=== PATIENT | male | born 1965 | race Caucasian/White ===

== ENCOUNTER → 2018-02-02 08:05 | Outpatient (CLI) | payer MEDICAID, SELFPAY ==
[2018-02-02 09:37] LABS: Microalbumin:Creatinine Ratio 129.8 mg/g CRE (<30 mg/g CRE)
[2018-02-02 09:42] LABS: ALB/GLOB Ratio 1.1 RATIO (0.9-2.4); AST(SGOT) 13 U/L (15-37); Alanine Aminotransfer ALT/SGPT 35 U/L (16-61); Albumin, Serum 3.5 g/dL (3.2-5.0); Alkaline Phosphatase 77 U/L (45-117); Anion Gap 8 (5-15); BUN 18 mg/dL (7-18); Calcium,Total 8.6 mg/dL (8.5-10.1); Chloride 101 mmol/L (98-107); Cholesterol 149 mg/dL (200); Creatinine, Serum 0.75 mg/dL (0.70-1.30); EST Glomerular Filtration Rate 116 mL/min (>60); Est Glom Filt Rate - Afr Amer 141 mL/min (>60); Globulin 3.2 g/dL (2.2-4.2); Glucose 255 mg/dL (74-106); High Density Lipoprotein 50 mg/dL; Potassium 4.1 mmol/L (3.5-5.1); Protein, Total 6.7 g/dL (6.4-8.2); Sodium Level 136 mmol/L (136-145); Triglycerides 77 mg/dL; Very Low Density Lipoprotein 15 mg/dL (5-40)
[2018-02-02 09:51] LABS: Hemoglobin A1c 11.4 % (4.2-6.3)
== END ==
PROVIDERS: Family Provider Family Medicine; PCP Family Medicine; Visit Provider Family Medicine
DX: E11.65 Type 2 diabetes mellitus with hyperglycemia (principal)
CPT/HCPCS: 36415; 80053; 80061; 82043; 82570; 83036

== ENCOUNTER → 2019-03-28 09:23 | Outpatient (CLI) | payer MEDICAID, SELFPAY ==
[2019-03-28 12:30] LABS: Microalbumin,Random Urine 33.2 mg/L (NO RANGE EST.); Microalbumin:Creatinine Ratio 59.7 mg/g CRE (<30 mg/g CRE)
[2019-03-28 12:40] LABS: ALB/GLOB Ratio 0.9 RATIO (0.9-2.4); AST(SGOT) 14 U/L (15-37); Alanine Aminotransfer ALT/SGPT 29 U/L (16-61); Albumin, Serum 3.5 g/dL (3.2-5.0); Alkaline Phosphatase 78 U/L (45-117); Anion Gap 10 (5-15); BUN 25 mg/dL (7-18); BUN/Creat Ratio 30.2 RATIO (10-20); Chloride 100 mmol/L (98-107); Cholesterol 177 mg/dL (200); Creatinine, Serum 0.83 mg/dL (0.70-1.30); EST Glomerular Filtration Rate 103 mL/min (>60); Est Glom Filt Rate - Afr Amer 125 mL/min (>60); Globulin 3.7 g/dL (2.2-4.2); Glucose 330 mg/dL (74-106); High Density Lipoprotein 53 mg/dL; Potassium 4.4 mmol/L (3.5-5.1); Protein, Total 7.2 g/dL (6.4-8.2); Sodium Level 133 mmol/L (136-145); Triglycerides 146 mg/dL; Very Low Density Lipoprotein 29 mg/dL (5-40)
== END ==
PROVIDERS: Family Provider Family Medicine; PCP Family Medicine; Visit Provider Family Medicine
DX: E11.65 Type 2 diabetes mellitus with hyperglycemia (principal)
CPT/HCPCS: 36415; 80053; 80061; 82043; 82570

== ENCOUNTER → 2021-03-11 | Outpatient (CLI) | payer SELFPAY | END | disposition home or self-care (01) | PROVIDERS: PCP Family Medicine; Referring Provider Family Medicine; Visit Provider Family Medicine | DX: L01.00 Impetigo, unspecified (principal) | CPT/HCPCS: 87070; 87075; 87077; 87186; 87205 ==

== ENCOUNTER 2021-08-14 21:03 | Inpatient (IN) | payer OTHER, SELFPAY ==
[2021-08-14] VITALS (8 sets, daily range): BP systolic 115–147; BP diastolic 86–126; PULSE 83–172; RESP 16–26; TEMP 35.5; O2SAT 94–98; BMI 43.6
--- NOTE | 2021-08-14 21:43 | EKG12_ITS ---
Test Reason : SOB Blood Pressure : / mmHG Vent. Rate : 146 BPM Atrial Rate : 081 BPM P-R Int : 000 ms QRS Dur : 084 ms QT Int : 308 ms P-R-T Axes : 000 063 195 degrees QTc Int : 479 ms Atrial fibrillation Nonspecific T wave abnormality Abnormal ECG Confirmed by RAJI DOWD, SONIA ([id number]), publications editor JAMES GARCIA ([id number]) on 08/17/2021 11:29:44 AM Referred By: SHUKRI Confirmed By:SONIA ALEGRIA MD
--- NOTE | 2021-08-14 21:57 | EX.ED.DYSGE1 ---
HPI History of Present Illness Chief Complaint: Shortness of Breath Informant: patient Onset/Context/Timing Onset: Month(s) Current Severity: Moderate Maximum Severity: Moderate Narrative Narrative: She presents with 3-month history of worsening shortness of breath, worse over the past week or 2. He had seen his PCP who gave him an inhaler 3 months ago. He states that is no longer helping. He does report some mild redness and swelling to his lower extremities left greater than right over the past week. He has some occasional chest tightness. He reports significantly worsened short of breath with exertion. He has had increased dyspnea when lying flat as well. [facility] Medical History COPD (chronic obstructive pulmonary disease) Diabetes MARIELLA (obstructive sleep apnea) Home Medications albuterol sulfate 2 puff INHALATION Q4H PRN PRN 08/14/21 [History Last Taken Unknown] bupropion HCl 150 mg PO DAILY 08/14/21 [History Last Taken Unknown] glimepiride 4 mg PO BID 08/14/21 [History Last Taken Unknown] insulin NPH isoph U-100 human [Novolin N NPH U-100 Insulin] 20 unit SUBCUT BID 08/14/21 [History Last Taken Unknown] lisinopril 2.5 mg PO DAILY 08/14/21 [History Last Taken Unknown] metformin 1,000 mg PO BID 08/14/21 [History Last Taken Unknown] pioglitazone 30 mg PO DAILY 08/14/21 [History Last Taken Unknown] Allergy/AdvReac Type Severity Reaction Status Date / Time Penicillins Allergy PT UNSURE Verified 08/14/21 21:07 OF REACTION Surgical History H/O hernia repair Social History Smoking Status: Former smoker ROS ROS ED Constitutional Constitutional ED: Denies chills or fever(s) Eyes Eyes: Denies change in vision ENT ENT ED: Denies sore throat Cardiovascular Cardiovascular: Reports chest pain; Denies palpitations Respiratory/Chest Respiratory/Chest: Reports dyspnea; Denies cough Gastrointestinal Gastrointestinal: Denies abdominal pain, diarrhea, nausea or vomiting Genitourinary Genitourinary ED: Denies dysuria Musculoskeletal Musculoskeletal: Reports other Details: Lower extremity edema ; Denies back pain Integumentary Denies rash Neurologic Neurologic: Denies headache(s) or weakness Allergic/Immunologic Allergic/Immunologic ED: Denies urticaria EXAM Physical Exam Const Vital Signs: 08/14/21 21:03 08/14/21 21:14 08/14/21 21:21 Temperature 95.9 F L Temperature Source Temporal Pulse Rate 83 172 H Respiratory Rate 16 Respiratory Effort Normal Non-Labored Respiratory Depth Normal Respiratory Pattern Normal Blood Pressure 144/110 H Blood Pressure Mean 121 Pulse Ox 97 Oxygen Delivery Method Room Air Room Air 08/14/21 21:23 08/14/21 21:27 08/14/21 22:33 Temperature Temperature Source Pulse Rate 141 H 126 H Respiratory Rate 19 H 26 H Respiratory Effort Respiratory Depth Respiratory Pattern Normal Blood Pressure 145/126 H 123/94 H Blood Pressure Mean 132 103 Pulse Ox 96 97 Oxygen Delivery Method Room Air Room Air 08/14/21 23:00 Temperature Temperature Source Pulse Rate 128 H Respiratory Rate 17 Respiratory Effort Respiratory Depth Respiratory Pattern Blood Pressure 115/92 H Blood Pressure Mean 99 Pulse Ox 97 Oxygen Delivery Method Room Air Positive obese Nutritional Appearance: obese HEENT Reports moist mucous membranes Eyes PERRL and EOMs intact bilaterally Neck supple Chest Wall inspection of chest normal and palpation of chest normal Resp Auscultation: diminished lung sounds Cardio Rate: tachycardic Rhythm: abnormal rhythm irregularly irregular GI normal to inspection, nondistended, normoactive bowel sounds and non-tender Palpation: soft Extremity Extremity Narrative: 3+ bilateral lower extremity edema. Neuro oriented x3 Sensorium / Orientation: alert Psych mental status grossly normal Skin no rashes or lesions noted MDM MDM MDM Narrative Medical decision making narrative: Patient placed on school lunch monitor. He appears to be in new onset atrial fibrillation with A. fib RVR. Patient ordered Cardizem for rate control. Lab work, formal EKG, chest x-ray obtained. Lab Data Attestation: I reviewed the patient's lab results. Labs: Laboratory Results - last 24 hr 08/14/21 08/14/21 08/14/21 21:20 21:20 21:20 WBC 6.8 RBC 5.30 Hgb 14.3 Hct 45.5 MCV 85.8 MCH 27.0 MCHC 31.4 L RDW Std Deviation 44.8 H RDW Coeff of Jett 14.3 Plt Count 243 MPV 11.5 Immature Gran % (Auto) 2.100 H Neut % (Auto) 59.5 Lymph % (Auto) 27.5 [place] % (Auto) 8.7 Eos % (Auto) 1.3 Baso % (Auto) 0.9 Absolute Neuts (auto) 4.0 Absolute Lymphs (auto) 1.86 Nucleated RBC % 0 D-Dimer Quant (PE/DVT) Sodium 134 L Potassium 4.6 Chloride 105 Carbon Dioxide 24.0 Anion Gap 5 BUN 31 H Creatinine 1.05 Estim Creat Clear Calc 92.42 Est GFR (MDRD) Af Amer 94 Est GFR (MDRD) Non-Af 78 BUN/Creatinine Ratio 29.5 H Glucose 214 H Calcium 8.7 Troponin I High Sens 37 B-Natriuretic Peptide 653.4 H 08/14/21 21:20 WBC RBC Hgb Hct MCV MCH MCHC RDW Std Deviation RDW Coeff of Jett Plt Count MPV Immature Gran % (Auto) Neut % (Auto) Lymph % (Auto) [place] % (Auto) Eos % (Auto) Baso % (Auto) Absolute Neuts (auto) Absolute Lymphs (auto) Nucleated RBC % D-Dimer Quant (PE/DVT) 0.45 Sodium Potassium Chloride Carbon Dioxide Anion Gap BUN Creatinine Estim Creat Clear Calc Est GFR (MDRD) Af Amer Est GFR (MDRD) Non-Af BUN/Creatinine Ratio Glucose Calcium Troponin I High Sens B-Natriuretic Peptide Radiography Chest X-Ray - ED: 1 View, Read by ED Physician and Chronic Changes Diagnostic Testing: Clinical Impression(s) from Imaging Studies Chest X-Ray 08/14/21 22:12 EKG Initial EKG: Attestation: I personally reviewed and interpreted this EKG as follows: Interpretation: Atrial Fibrillation (A. fib RVR at 146. T wave flattening throughout.) Treatment and Re-Evaluation Narrative: After 10 mg IV Cardizem heart rate improved to 120s. An additional 10 mg of IV Cardizem is given. Dose of Lovenox given. Lab work reviewed and largely unremarkable. Troponin is normal at 37 and D-dimer is normal. BNP is elevated at 650. Patient is given 40 mg of IV Lasix. Patient ambulates to the restroom and back and becomes dyspneic. Heart rate is now in the 130s. Patient will be given 20 mg of IV Cardizem and started on a Cardizem drip for rate control. I will speak with hospitalist regarding admission. Discharge Plan Dx/Rx/DC Orders Clinical Impression: New onset a-fib, Atrial fibrillation with rapid ventricular response, CHF (congestive heart failure) Disposition Disposition: Acute Care Hospital [facility]
[2021-08-14 22:00] LABS: Absolute Lymphocyte Count 1.86 X10^3/uL (0.83-4.51); Basophil# 0.06 X10^3/uL; Basophil% 0.9 % (0-1); Eosinophil# 0.09 X10^3/uL; Eosinophils% 1.3 % (0-5); Hematocrit 45.5 % (40-54); Hemoglobin 14.3 g/dL (13.0-16.5); Lymphocyte # 1.86 X10^3/ul (0.83-4.51); Lymphocyte % 27.5 % (19-41); Mean Corp Hgb Conc 31.4 g/dL (32-36); Mean Corpuscular Volume 85.8 fL (80-94); Mean Platelet Vol. 11.5 fl (6.2-12.0); Monocyte# 0.59 X10^3/uL; Monocyte% 8.7 % (0-10); NRBC Flagged by Analyzer 0 % (0-5); Neutrophil # 4.03 X10^3/uL (2.7-7.7); Neutrophil % 59.5 % (47-70); Platelet Count 243 K/mm3 (150-450); RBC Distribution Width CV 14.3 % (11.6-14.6); RBC Distribution Width SD 44.8 fl (35.1-43.9); White Blood Count 6.8 K/mm3 (4.4-11.0)
[2021-08-14] MEDS: dilTIAZem 25 MG/5 ML Vial 10 MG IV BOLUS ×2 (22:01→22:57)
[2021-08-14 22:10] LABS: D-Dimer Quantitative (DVT/PE) 0.45 FEU/ug/m (0.27-0.49)
--- NOTE | 2021-08-14 22:12 | RAD_ITS ---
EXAM: AP chest. HISTORY: sob TECHNIQUE: XR Chest 1 View. Upright. Portable. COMPARISON: None. LIMITATIONS: None. HEART: Mild-moderate cardiomegaly. TUBES/LINES: None. LUNGS: Prominent perihilar and almost diffuse long linear markings, most pronounced in the central lungs and mid to lower lung orantes.. PLEURA: Normal. MEDIASTINUM: No mediastinal widening but prominent perihilar vessels. No obvious enlarged or tortuous contour of the aorta margin. BONES/SOFT TISSUES: Normal. OTHER: Normal. CONCLUSION: Cardiomegaly, pulmonary vascular prominence and increased lung interstitial markings, suspicious for pulmonary interstitial edema-early CHF. Cannot exclude some degree of chronic interstitial lung disease. No effusions or focal confluent airspace disease. Electronically Signed: Shalonda Kern MD at 22:41 EDT , RAD/Chest 1 View (Portable)
[2021-08-14 22:15] LABS: Anion Gap 5 (5-15); BUN 31 mg/dL (7-18); BUN/Creat Ratio 29.5 RATIO (10-20); Calcium,Total 8.7 mg/dL (8.5-10.1); Chloride 105 mmol/L (98-107); Creatinine, Serum 1.05 mg/dL (0.70-1.30); EST Glomerular Filtration Rate 78 mL/min (>60); Est Glom Filt Rate - Afr Amer 94 mL/min (>60); Estimated Creatinine Clearance 92.42 ml/min; Glucose 214 mg/dL (74-106); Potassium 4.6 mmol/L (3.5-5.1); Sodium Level 134 mmol/L (136-145); Troponin-I HS 37 pg/mL (3.0-78.0)
[2021-08-14 22:19] LABS: BNP,B-Type NATRIURETIC PEPTIDE 653.4 pg/mL (0-100)
[2021-08-14] MEDS: Enoxaparin 150 MG/ML Syringe SC (22:32)
[2021-08-14] MEDS: Furosemide 40 MG/4 ML Vial IV (22:58)
[2021-08-14] MEDS: dilTIAZem 25 MG/5 ML Vial 20 MG IV BOLUS (23:50)
--- NOTE | 2021-08-14 23:52 | HP.PCM.HOS_ITS ---
[facility] - General General Date of Admission: 08/14/21 HPI Narrative ALFIE BACON, is a 55 M with a significant history of tobacco abuse (reportedly wean himself off and quit smoking 2 days before presentation) ; obstructive sleep apnea on CPAP; COPD; diabetes mellitus and morbid obesity who presents to the emergency department with shortness of breath that started about 3 months ago. His shortness of breath is at rest and it increases markedly with mild exertion. His shortness of breath got progressively worse in the past 1 to 2 weeks. Prescribed inhaler did not help his breathing. He report that about 4 years ago he was diagnosed with COPD and at that time inhaler use helped his breathing. This time around inhaler is not helping his breathing. Associated with symptom is bilateral leg and bilateral feet swelling that he thinks is worse in his left extremity than his right extremity. He reports fatigue. He stated that he has not noticed any significant change in his weight. He denies orthopnea. He has paroxysmal nocturnal dyspnea. He reports wheezes. He denies any palpitation or heart racing. He reports chest tightness. [facility] Medical History COPD (chronic obstructive pulmonary disease) Diabetes MARIELLA (obstructive sleep apnea) Home Medications albuterol sulfate 2 puff INHALATION Q4H PRN PRN 08/14/21 [History Last Taken Unknown] bupropion HCl 150 mg PO DAILY 08/14/21 [History Last Taken Unknown] glimepiride 4 mg PO BID 08/14/21 [History Last Taken Unknown] insulin NPH isoph U-100 human [Novolin N NPH U-100 Insulin] 20 unit SUBCUT BID 08/14/21 [History Last Taken Unknown] lisinopril 2.5 mg PO DAILY 08/14/21 [History Last Taken Unknown] metformin 1,000 mg PO BID 08/14/21 [History Last Taken Unknown] pioglitazone 30 mg PO DAILY 08/14/21 [History Last Taken Unknown] Allergy/AdvReac Type Severity Reaction Status Date / Time Penicillins Allergy PT UNSURE Verified 08/14/21 21:07 OF REACTION Family History Other COPD (chronic obstructive pulmonary disease) Colon cancer Heart disease Lung cancer Testicular cancer Surgical History Bunion H/O hernia repair Social History Smoking Status: Former smoker ROS ROS Narrative Constitutional: Reports fatigue. On some days he has a good appetite and some days he has a poor appetite. Denies fever, chills, fatigue. Patient says he has not had any significant change in weight. Eyes: Denies blurry vision, change in eye color, change in vision, discharge from eye(s), double vision, erythema, eye pain, loss of vision or other HEENT: Denies abnormal hearing, dysphagia, ear pain, epistaxis, headache(s), hearing loss, nasal congestion, nasal discharge, post nasal drip, sinus pressure, sore throat or other Cardiovascular: Reports chest tightness. Reports increased shortness of breath with mild exertion. Denies orthopnea orthopnea. Has paroxysmal nocturnal dyspnea Respiratory/Chest: Reports shortness of breath at rest. Report wheezes. Gastrointestinal: Denies abdominal pain, coffee ground emesis, constipation, diarrhea, dyspepsia, hematemesis, hematochezia, loose stools, melena, nausea, vomiting or other Genitourinary: Denies burning urination, difficulty urinating, dysuria, hem aturia, nocturia, urinary frequency, urinary hesitancy, urinary incontinence, urinary urgency or other Musculoskeletal: Reports about bilateral legs and bilateral feet swelling with left worse than right. Denies arthralgias, back pain, joint pain, joint stiffness, myalgias, neck pain or other Neurologic: Denies abnormal gait, abnormal speech, confusion, disequilibrium, dizziness, focal weakness, numbness, paresthesias, seizure-like activity, seizures, syncope, tingling, tremor(s) or other Psychiatric: Denies anxiety, depression, homicidal ideation, suicidal ideation or other Endocrinology: Denies change in body appearance, cold intolerance, excessive sweating, heat intolerance, polydipsia, polyuria or other Hematologic/Lymphatic: Denies anemia, easy bleeding, easy bruising, lymphaden opathy or other Integumentary: Denies rashes Allergic/Immunologic: Denies rhinitis, hives, eczema, or other Vital Signs Vital Signs Vital Signs: 08/14/21 21:03 08/14/21 21:14 08/14/21 21:21 Temperature 95.9 F L Temperature Source Temporal Pulse Rate 83 172 H Respiratory Rate 16 Respiratory Effort Normal Non-Labored Respiratory Depth Normal Respiratory Pattern Normal Blood Pressure 144/110 H Blood Pressure Mean 121 Pulse Ox 97 Oxygen Delivery Method Room Air Room Air 08/14/21 21:23 08/14/21 21:27 08/14/21 22:33 Temperature Temperature Source Pulse Rate 141 H 126 H Respiratory Rate 19 H 26 H Respiratory Effort Respiratory Depth Respiratory Pattern Normal Blood Pressure 145/126 H 123/94 H Blood Pressure Mean 132 103 Pulse Ox 96 97 Oxygen Delivery Method Room Air Room Air 08/14/21 23:00 08/14/21 23:50 Temperature Temperature Source Pulse Rate 128 H 140 H Respiratory Rate 17 20 H Respiratory Effort Respiratory Depth Respiratory Pattern Blood Pressure 115/92 H 147/86 H Blood Pressure Mean 99 106 Pulse Ox 97 94 Oxygen Delivery Method Room Air Room Air Weight Weight: 154.221 kg Body Mass Index (BMI) 43.6 Physical Exam Narrative Physical exam: General: Well-nourished, well-developed. Head: Normocephalic, atraumatic, no tenderness Eyes: Vision is grossly intact. EOMI ENT, no trauma, moist mucous membranes, no rhinorrhea Neck: Nontender, full range of motion, no spinal tenderness, deformities, step- off CVS: Tachycardia. Irregularly irregular rate and rhythm. S1-S2 present. No murmur, gallop or rub. Respiratory : Mild wheezes throughout and mild rales at right base. chest wall nontender Abdomen: Soft, nontender, nondistended, normal bowel sounds, no masses : Deferred Back: Nontender, no CVA tenderness, no midline spinal tenderness, deformities, step-offs Extremities: Bilateral lower feet and legs pitting edema 3+. Skin: Normal color, scattered scabbed areas and scattered erythema on skin. Neuro: Alert, oriented, cranial nerves II through XII grossly intact. Psychiatry: Normal mood. Normal affect. Not depressed. Not anxious. Results Lab / Micro Data Result Diagrams: 08/14/21 21:20 08/14/21 21:20 Labs: Laboratory Results - last 24 hr 08/14/21 21:20: WBC 6.8, RBC 5.30, Hgb 14.3, Hct 45.5, MCV 85.8, MCH 27.0, MCHC 31.4 L, RDW Std Deviation 44.8 H, RDW Coeff of Jett 14.3, Plt Count 243, MPV 11.5, Immature Gran % (Auto) 2.100 H, Neut % (Auto) 59.5, Lymph % (Auto) 27.5, [place] % (Auto) 8.7, Eos % (Auto) 1.3, Baso % (Auto) 0.9, Absolute Neuts (auto) 4.0, Absolute Lymphs (auto) 1.86, Nucleated RBC % 0 08/14/21 21:20: Sodium 134 L, Potassium 4.6, Chloride 105, Carbon Dioxide 24.0, Anion Gap 5, BUN 31 H, Creatinine 1.05, Estim Creat Clear Calc 92.42, Est GFR (MDRD) Af Amer 94, Est GFR (MDRD) Non-Af 78, BUN/Creatinine Ratio 29.5 H, Glucose 214 H, Calcium 8.7, Troponin I High Sens 37 08/14/21 21:20: B-Natriuretic Peptide 653.4 H 08/14/21 21:20: D-Dimer Quant (PE/DVT) 0.45 Radiology Impression Chest X-Ray 08/14/21 22:12 Assessment & Plan Assessment/Plan (1) Atrial fibrillation with rapid ventricular response: (2) CHF (congestive heart failure): QUALIFIERS: Heart failure chronicity: acute Heart failure type: unspecified Qualified Code(s): I50.9 - Heart failure, unspecified (3) Morbid obesity due to excess calories: PLAN: New onset A. fib with rapid ventricular response Emergency department doctor reported that on presentation patient was in A. fib with rate of 150 at 160. Patient received multiple boluses of Cardizem and was placed on Cardizem drip. Placed on PCU on telemetry Initial troponin was 37. Serial cardiac enzymes Review of hospital records did not show any previous echocardiogram. Echocardiogram ordered. Received therapeutic dose of Lovenox at emergency department. [id number] 2 score of at least 2 (including congestive heart failure diagnosed on presentation; diabetes; ) Lovenox 1 mg per kilogram subcutaneous every 12 hours ordered Started on Cardizem drip at the ED and continued. Potassium level is normal. Check magnesium. Check TSH. New onset exacerbation of heart failure Unspecified whether systolic or diastolic Weight on admission to the floor; and then daily Strict I&O's CXR was visualized and independently interpreted and agree with radiologist interpretation of cardiomegaly, pulmonary vascular prominence and increased lung interstitial markings. EKG visualized and independently interpreted confirms atrial fibrillation with rapid ventricular response. BNP on presentation was 653.4 in the setting of obesity. Received Lasix 40 mg IV at the emergency department and continued. Potassium supplementation ordered. Echo ordered to evaluate LVEF and wall motion. Monitor electrolytes and renal function Daniel wrap to bilateral lower extremities. Elevate bilateral lower extremities. Fluid restriction of 1500 mls daily Cardiac diet with restricted calories. Discontinue home Pioglitazone. Diabetes mellitus Patient with hyperglycemia on presentation Glimepiride and NPH continued. Hold Metformin. Discontinue Pioglitazone Low-dose lisinopril continued. Accu-Chek QA CHS with correction scale insulin ordered. Morbid Obesity- BMI: 43.7 kg/m?. Complicates care. Lifestyle modification recommended. DVT prophylaxis: Not indicated as patient has been started on therapeutic dose of Lovenox for new onset A. fib. Charges/Coding Visit Charges Inpatient E&M: 95535 Init Hosp L3
[2021-08-15] VITALS (43 sets, daily range): BP systolic 72–157; BP diastolic 62–128; PULSE 63–171; RESP 11–30; TEMP 36.4–36.7; O2SAT 92–99; BMI 44.0
--- NOTE | 2021-08-15 00:40 | ED.RN ---
URINAL EMPTIED FOR 800 CC CLEAR YELLOW URINE
--- NOTE | 2021-08-15 01:25 | ECHOCS_ITS ---
Reason For Study: Afib, Aflutter Procedure This was a 2D Doppler, Color Flow transthoracic echocardiogram. The study was technically difficult. Contrast injection was performed. Exam performed portable in patient room. Left Ventricle Moderately dilated left ventricle. The estimated ejection fraction is 15 %. Unable to assess diastolic dysfunction due to arrhythmia. There is severe global hypokinesis of the left ventricle. Right Ventricle Normal RV size. Normal systolic function. Atria The left atrium is mildly enlarged. Normal right atrium. Mitral Valve Normal mitral valve. Tricuspid Valve Normal tricuspid valve. Moderate (2+) tricuspid valve insufficiency. Pulmonary artery systolic pressure is 50 mmHg. Aortic Valve Normal aortic valve. Pulmonic Valve Normal pulmonic valve. Great Vessels Normal aortic root. The pulmonary artery is normal size. Pericardium/Pleural No pericardial effusion. Medication Diluted definity 3ml given slow IV push to enhance endocardial definition. MMode/2D Measurements & Calculations LVIDd: 6.5 cm IVSd: 1.2 cm Ao root diam: 3.6 cm LVIDs: 5.7 cm LVPWd: 1.1 cm RVDd: 4.7 cm FS: 13.0 % LAV(MOD-bp): 82.6 ml LA A4 area: 24.4 cm2 LA dimension(2D): 4.7 cm LAV(MOD-bp) Indexed: 30.4 ml/m2 LAV(MOD-sp2): 75.9 ml LAV(MOD-sp4): 82.3 ml RA A4 area: 19.8 cm2 Doppler Measurements & Calculations MV E max shawanda: 112.6 cm/sec Ao V2 max: 95.1 cm/sec LV V1 max: 77.4 cm/sec Ao max P.8 mmHg LV V1 max P.5 mmHg Ao V2 mean: 70.2 cm/sec Ao mean P.2 mmHg Ao V2 VTI: 14.5 cm PA V2 max: 56.1 cm/sec TR max shawanda: 335.7 cm/sec TR max P.1 mmHg ECHO/Echo Complete W/ Contrast Interpretation Summary Moderately dilated left ventricle. The estimated ejection fraction is 15 %. Unable to assess diastolic dysfunction due to arrhythmia. Pulmonary artery systolic pressure is 50 mmHg. Contrast injection was performed. Ordering Physician: Delonte Lees Referring Physician: Margot Mai Performed By: Lala Lemons, JAIDEN, RVT
[2021-08-15 02:58] LABS: Troponin-I HS 36 pg/mL (3.0-78.0)
[2021-08-15 05:28] LABS: Absolute Lymphocyte Count 1.25 X10^3/uL (0.83-4.51); Absolute Neutrophil Count 4.5 X10^3/uL (2.0-7.7); Basophil# 0.06 X10^3/uL; Basophil% 0.9 % (0-1); Eosinophil# 0.09 X10^3/uL; Eosinophils% 1.4 % (0-5); Hematocrit 41.9 % (40-54); Hemoglobin 13.4 g/dL (13.0-16.5); Lymphocyte # 1.25 X10^3/ul (0.83-4.51); Lymphocyte % 19.2 % (19-41); Mean Corpuscular Hgb 26.9 pg (27.0-32.0); Mean Corpuscular Volume 84.1 fL (80-94); Mean Platelet Vol. 11.1 fl (6.2-12.0); Monocyte# 0.48 X10^3/uL; Monocyte% 7.4 % (0-10); NRBC Flagged by Analyzer 0 % (0-5); Neutrophil # 4.52 X10^3/uL (2.7-7.7); Neutrophil % 69.3 % (47-70); Platelet Count 184 K/mm3 (150-450); RBC Distribution Width CV 14.5 % (11.6-14.6); RBC Distribution Width SD 43.9 fl (35.1-43.9); Red Blood Count 4.98 M/mm3 (4.6-6.2); White Blood Count 6.5 K/mm3 (4.4-11.0)
[2021-08-15 06:05] LABS: Anion Gap 5 (5-15); BUN 27 mg/dL (7-18); Calcium,Total 8.2 mg/dL (8.5-10.1); Chloride 105 mmol/L (98-107); Cholesterol 129 mg/dL (200); Creatinine, Serum 0.87 mg/dL (0.70-1.30); EST Glomerular Filtration Rate 97 mL/min (>60); Est Glom Filt Rate - Afr Amer 117 mL/min (>60); Estimated Creatinine Clearance 111.54 ml/min; Glucose 223 mg/dL (74-106); High Density Lipoprotein 42 mg/dL; Potassium 4.7 mmol/L (3.5-5.1); Sodium Level 134 mmol/L (136-145); Thyroid Stim Hormone (TSH) 3.54 uIU/mL (0.358-3.74); Triglycerides 85 mg/dL; Very Low Density Lipoprotein 17 mg/dL (5-40)
[2021-08-15] MEDS: Insulin Lispro 100 UNIT/ML INSULN.PEN SC ×4 (06:36→21:43)
[2021-08-15 06:41] LABS: Bedside Glucose 233 mg/dL (74-106)
[2021-08-15] MEDS: Glimepiride 4 MG Tablet PO ×2 (07:59→16:40)
[2021-08-15] MEDS: Potassium Chloride Oral Tablet 20 MEQ 40 MEQ PO (07:59)
[2021-08-15] MEDS: Insulin NPH Human 100 UNITS/ML PEN 20 UNITS SC ×2 (10:12→21:43)
[2021-08-15] MEDS: Furosemide 40 MG/4 ML Vial IV ×2 (10:12→17:58)
[2021-08-15] MEDS: Lisinopril 2.5 MG Tablet PO (10:12)
[2021-08-15] MEDS: buPROPion (SR) 150 MG Tablet.SA PO ×2 (10:12→21:43)
[2021-08-15] MEDS: Enoxaparin 150 MG/ML Syringe SC ×2 (10:12→21:47)
[2021-08-15 10:21] LABS: Troponin-I HS 31 pg/mL (3.0-78.0)
[2021-08-15] MEDS: Amiodarone 360 MG in Dextrose 5% Viaflo Bag 192.8 ML 16.7 MG CONT INF (10:24)
[2021-08-15] MEDS: Carvedilol 6.25 MG Tablet PO ×2 (11:15→21:43)
[2021-08-15 11:26] LABS: Bedside Glucose 317 mg/dL (74-106)
--- NOTE | 2021-08-15 11:27 | PN.HOSP_ITS ---
Subjective Subjective Follow-up on Katarzyna dai with RVR/acute systolic CHF: Patient was seen and examined. Complains of shortness of breath ongoing for months. He feels slightly improved. He remains on amiodarone and Cardizem drip. He denied any chest pain, dizziness or SOB. Objective Data Objective Data Vital Signs: Vital Signs Temp Pulse Resp BP Pulse Ox 97.8 F 106 H 26 H 152/90 H 96 08/15/21 07:59 08/15/21 10:24 08/15/21 10:24 08/15/21 10:24 08/15/21 10:24 Oxygen Delivery Method Room Air Weight: 155.8 kg Body Mass Index (BMI) 44.0 Intake & Output: Intake and Output for Last 24 Hours 08/13/21 08/14/21 08/15/21 23:59 23:59 23:59 Intake Total 645.35 / 645.35 Output Total 1925 / 1925 Balance -1279.65 / -1279.65 Lab / Micro Data Result Diagrams: 08/15/21 05:20 08/15/21 05:20 Labs: Laboratory Results - last 24 hr 08/14/21 21:20: WBC 6.8, RBC 5.30, Hgb 14.3, Hct 45.5, MCV 85.8, MCH 27.0, MCHC 31.4 L, RDW Std Deviation 44.8 H, RDW Coeff of Jett 14.3, Plt Count 243, MPV 11.5, Immature Gran % (Auto) 2.100 H, Neut % (Auto) 59.5, Lymph % (Auto) 27.5, [place] % (Auto) 8.7, Eos % (Auto) 1.3, Baso % (Auto) 0.9, Absolute Neuts (auto) 4.0, Absolute Lymphs (auto) 1.86, Nucleated RBC % 0 08/14/21 21:20: Sodium 134 L, Potassium 4.6, Chloride 105, Carbon Dioxide 24.0, Anion Gap 5, BUN 31 H, Creatinine 1.05, Estim Creat Clear Calc 92.42, Est GFR (MDRD) Af Amer 94, Est GFR (MDRD) Non-Af 78, BUN/Creatinine Ratio 29.5 H, Glucose 214 H, Calcium 8.7, Troponin I High Sens 37 08/14/21 21:20: B-Natriuretic Peptide 653.4 H 08/14/21 21:20: D-Dimer Quant (PE/DVT) 0.45 08/14/21 21:20: Magnesium 2.0 08/15/21 01:52: Troponin I High Sens 36 08/15/21 05:20: WBC 6.5, RBC 4.98, Hgb 13.4, Hct 41.9, MCV 84.1, MCH 26.9 L, MCHC 32.0, RDW Std Deviation 43.9, RDW Coeff of Jett 14.5, Plt Count 184, MPV 11.1, Immature Gran % (Auto) 1.800 H, Neut % (Auto) 69.3, Lymph % (Auto) 19.2, [place] % (Auto) 7.4, Eos % (Auto) 1.4, Baso % (Auto) 0.9, Absolute Neuts (auto) 4.5, Absolute Lymphs (auto) 1.25, Nucleated RBC % 0 08/15/21 05:20: Sodium 134 L, Potassium 4.7, Chloride 105, Carbon Dioxide 24.0, Anion Gap 5, BUN 27 H, Creatinine 0.87, Estim Creat Clear Calc 111.54, Est GFR (MDRD) Af Amer 117, Est GFR (MDRD) Non-Af 97, BUN/Creatinine Ratio 31.0 H, Glucose 223 H, Calcium 8.2 L, Triglycerides 85, Cholesterol 129, LDL Cholesterol 70, VLDL Cholesterol 17, HDL Cholesterol 42, TSH 3.54 08/15/21 05:20: Troponin I High Sens 31 08/15/21 06:31: POC Glucose 233 H 08/15/21 11:08: POC Glucose 317 H Radiography Diagnostic Testing: Radiology Impression Chest X-Ray 08/14/21 22:12 Echocardiogram 08/15/21 01:25 Interpretation Summary Moderately dilated left ventricle. The estimated ejection fraction is 15 %. Unable to assess diastolic dysfunction due to arrhythmia. Pulmonary artery systolic pressure is 50 mmHg. Contrast injection was performed. Ordering Physician: Delonte Lees Referring Physician: Margot Mai Performed By: Lala Lemons, JAIDEN, RVT Physical Exam Narrative Physical exam: General: Alert, Oriented x3, Cooperative, No apparent distress, morbidly obese HEENT: Atraumatic Oral: Moist Mucosa Neck: Supple Lungs: Diminished to auscultation, crackles at the lung bases Cardiovascular: HS I+II, regular, no murmurs Abdomen: Bowel Sounds Present, Soft, Non Tender Extremities: Bilateral leg edema +3 Skin: No rashes, No breakdown Neurological: Grossly intact Psych/Mental Status: Appropriate Assessment & Plan Assessment/Plan (1) Atrial fibrillation with rapid ventricular response: (2) CHF (congestive heart failure): QUALIFIERS: Heart failure type: unspecified Heart failure chronicity: acute Qualified Code(s): I50.9 - Heart failure, unspecified (3) Morbid obesity due to excess calories: PLAN: 1. Newly diagnosed A. fib with rapid ventricular response, remains in RVR Continue on cardizem, amiodarone drip and Lovenox SC Continue on Coreg 2. Acute heart failure with reduced EF, EF 15% Continue Lasix IV twice daily, lisinopril Continue on CHF protocol, fluid restriction 3. Type 2 DM, uncontrolled, continue on NPH, Amaryl Check HbA1c, continue with insulin sliding scale with blood glucose checks 4. MARIELLA on CPAP 5. Morbid Obesity, BMI 43.7 kg/m?, complicates care. Lifestyle modification recommended. 6. Depression, continue on Wellbutrin 7. DVT prophylaxis -on therapeutic Lovenox Charges/Coding Visit Charges Inpatient E&M: 74113 Subs Hosp L3
--- NOTE | 2021-08-15 11:55 | CASEMGMT ---
JANETTE QUINTANILLA assessment: Face to Face with patient for initial transition planning/care coordination assessment. RN DWIGHT introduced self and role at [facility], pt voices understanding and consents to assessment. Pt is sitting up in chair in no distress on room air. Pt is A/Ox4 and answers all questions appropriately. Care providers, pharmacy, and demographics verified/updated. Presentation: Pt c/o SOB x couple weeks-was started on inhaler but pt reports no improvement-pt also c/o LLE redness/edema x 1 week Admitting dx: Afib RVR, HF PCP: [facility] Specialists: Pt states no specialists. [facility]erred [facility]acy: [facility] Insurance: SP Prescription Benefit: SP-pt states no previous concerns getting insulin but will likely be started on multiple more meds. CM to follow for anti-coag. Garrick SW aware. Living Will/HPOA: Pt states has LW/HPOA and is aware that they are not on file at [facility]. Pt states his friend, Francisco Yusuf, is HPOA. LNOK: Francisco Yusuf, HPOA/friend Living Arrangements: Pt lives alone in 1 story house and states no concerns at home. Pt is independent with ADL's. Transportation: Pt drives self and states no transportation concerns. DME/HHC: Pt has glucometer and cpap thru [employer]. Pt voices no need for further DME. Pt states no hx of HHC or SNF. Pt states no concerns with going home at time of discharge. 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 Pt states did smoke a pack cigarettes daily but has been quitting and last cigarette was 3 days ago. Pt states drinks ETOH socially. Pt voices no further concerns/needs. CM to follow for any further discharge planning/needs. Advised pt to ask for CM if any further questions/concerns/needs arise, voices understanding. Pt Goal: Home Plan[place] JANETTE QUINTANILLA
--- NOTE | 2021-08-15 15:48 | CASEMGMT ---
Social Work Pt seen by SW as he does not have insurance. Pt states he is self employed, would not qualify for Medicaid, and does not have insurance as the premiums and deductibles are extremely high. GAIL provided pt with information on [employer] program, Prescription assistance and [employer]. Pt appreciative of information and denies any further needs at this time. SW will remain available should need arise. RICHY Rubio
[2021-08-15 16:45] LABS: Bedside Glucose 338 mg/dL (74-106)
--- NOTE | 2021-08-15 17:17 | CON.PCM.CA_ITS ---
Assessment & Plan Assessment/Plan (1) New onset a-fib: PLAN: Patient appears to be in atrial fibrillation with a rapid ventricular response rate. My recommendation at this time will be to control his ventricular response rate, anticoagulate him and review his echocardiogram. This was performed this afternoon demonstrated severely reduced left ventricular systolic function. 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 * Would recommend we continue with titrating up his beta-jada and anticoagulation and then further recommendations will be made. (2) CHF (congestive heart failure): QUALIFIERS: Heart failure type: unspecified Heart failure chronicity: acute Qualified Code(s): I50.9 - Heart failure, unspecified PLAN: He does appear to have acute congestive heart failure which appears to be systolic heart failure with reduced left ventricular systolic function. Would recommend intravenous diuresis with Lasix Would start PRITEO inhibitor as patient tolerates Continue beta-jada We will consider SGLT2 inhibitor. I would also consider DC cardioversion at some point to see whether this would improve his left ventricular systolic function. HPI Consult Data Date of Consult: 08/15/21 HPI Narrative HPI Narrative: ALFIE BACON, is a 55 M who presents to the emergency room with shortness of breath that started approximately 3 months ago. It usually at rest and worsens with exertion. He has also noted pedal edema. Over the last 1 to 2 weeks his shortness of breath has gotten much worse. He had been previously diagnosed with obstructive lung disease and has been using his inhaler. In the emergency room he was noted to be tachycardic though he denied any palpitations. He has also had some tightness in his chest. He denies any orthopnea or paroxysmal nocturnal dyspnea. He was noted to be in atrial fibrillation with a rapid ventricular response rate and was started on intravenous diltiazem initially. Cardiology was called for further evaluation and management. [facility] Medical History COPD (chronic obstructive pulmonary disease) Diabetes MARIELLA (obstructive sleep apnea) Home Medications albuterol sulfate 2 puff INHALATION Q4H PRN PRN 08/14/21 [History Last Taken 08/14/21] bupropion HCl 150 mg PO DAILY 08/14/21 [History Last Taken 08/14/21] glimepiride 4 mg PO BID 08/14/21 [History Last Taken 08/14/21 20:00] insulin NPH isoph U-100 human [Novolin N NPH U-100 Insulin] 20 unit SUBCUT BID 08/14/21 [History Last Taken 08/14/21 20:00] lisinopril 2.5 mg PO DAILY 08/14/21 [History Last Taken 08/14/21] metformin 1,000 mg PO BID 08/14/21 [History Last Taken 08/14/21] pioglitazone 30 mg PO DAILY 08/14/21 [History Last Taken 08/14/21] Allergy/AdvReac Type Severity Reaction Status Date / Time Penicillins Allergy PT UNSURE Verified 08/14/21 21:07 OF REACTION Family History Other COPD (chronic obstructive pulmonary disease) Colon cancer Heart disease Lung cancer Testicular cancer Surgical History Bunion H/O hernia repair Social History Smoking Status: Former smoker ROS Constitutional Constitutional: Denies fever(s) or weight loss Eyes Eyes: Reports systems reviewed and no addt'l complaints, except as documented ENT HEENT: Reports systems reviewed and no addt'l complaints, except as documented Cardiovascular Cardiovascular: Denies chest pain at rest, chest pain with activity, dyspnea at rest, dyspnea on exertion, edema, palpitations or paroxysmal nocturnal dyspnea Respiratory/Chest Respiratory/Chest: Denies dyspnea on exertion, productive cough, shortness of breath at rest or shortness of breath with exertion Gastrointestinal Gastrointestinal: Denies change in bowel habits, nausea, vomiting or weight changes Genitourinary Genitourinary: Denies difficulty urinating Musculoskeletal Musculoskeletal: Denies joint stiffness or muscle weakness Integumentary Integumentary: Denies lesions Neurologic Neurologic: Denies dizziness or syncope Psychiatric Psychiatric: Denies anxiety Endocrine Endocrinology: Denies excessive sweating or fatigue Hematologic/Lymphatic Hematologic/Lymphatic: Denies anemia Allergic/Immunologic Allergic/Immunologic: Denies seasonal rhinorrhea Physical Exam Const alert, oriented x3 and no apparent distress General Appearance: cooperative HEENT hearing grossly normal bilaterally Head and Scalp: atraumatic Eyes EOMs intact bilaterally Neck General: normal visual inspection Chest inspection of chest normal and palpation of chest normal Resp normal respiratory effort Auscultation: clear to auscultation bilaterally Cardio S1 normal heart sound and S2 normal heart sound Jugular Venous Distention: JVD GI normal to inspection, nondistended, normoactive bowel sounds Extremity normal capillary refill and no pedal edema Peripheral Pulses: Yes pulses 2+ throughout and femoral pulses present Skin no rashes or lesions noted Neuro oriented x3 and CN's II-XII intact bilaterally Psych Appearance: grossly normal and appropriate Risk Stratification Risk Stratification Applicable: No Objective Data Vital Signs: Vital Signs Temp Pulse Resp BP Pulse Ox 97.9 F 75 18 105/77 97 08/15/21 16:36 08/15/21 17:00 08/15/21 16:36 08/15/21 17:00 08/15/21 16:36 Oxygen Delivery Method Room Air Weight: 343 lb 7.683 oz Body Mass Index (BMI) 44.0 Intake & Output: Intake and Output for Last 24 Hours 08/13/21 08/14/21 08/15/21 23:59 23:59 23:59 Intake Total 856.62 / 856.62 Output Total 1925 / 1925 Balance -1068.38 / -1068.38 Lab / Micro Data Result Diagrams: 08/15/21 05:20 08/15/21 05:20 Labs: Laboratory Results - last 24 hr 08/14/21 21:20: WBC 6.8, RBC 5.30, Hgb 14.3, Hct 45.5, MCV 85.8, MCH 27.0, MCHC 31.4 L, RDW Std Deviation 44.8 H, RDW Coeff of Jett 14.3, Plt Count 243, MPV 11.5, Immature Gran % (Auto) 2.100 H, Neut % (Auto) 59.5, Lymph % (Auto) 27.5, [place] % (Auto) 8.7, Eos % (Auto) 1.3, Baso % (Auto) 0.9, Absolute Neuts (auto) 4.0, Absolute Lymphs (auto) 1.86, Nucleated RBC % 0 08/14/21 21:20: Sodium 134 L, Potassium 4.6, Chloride 105, Carbon Dioxide 24.0, Anion Gap 5, BUN 31 H, Creatinine 1.05, Estim Creat Clear Calc 92.42, Est GFR (MDRD) Af Amer 94, Est GFR (MDRD) Non-Af 78, BUN/Creatinine Ratio 29.5 H, Glucose 214 H, Calcium 8.7, Troponin I High Sens 37 08/14/21 21:20: B-Natriuretic Peptide 653.4 H 08/14/21 21:20: D-Dimer Quant (PE/DVT) 0.45 08/14/21 21:20: Magnesium 2.0 08/15/21 01:52: Troponin I High Sens 36 08/15/21 05:20: WBC 6.5, RBC 4.98, Hgb 13.4, Hct 41.9, MCV 84.1, MCH 26.9 L, MCHC 32.0, RDW Std Deviation 43.9, RDW Coeff of Jett 14.5, Plt Count 184, MPV 11.1, Immature Gran % (Auto) 1.800 H, Neut % (Auto) 69.3, Lymph % (Auto) 19.2, [place] % (Auto) 7.4, Eos % (Auto) 1.4, Baso % (Auto) 0.9, Absolute Neuts (auto) 4.5, Absolute Lymphs (auto) 1.25, Nucleated RBC % 0 08/15/21 05:20: Sodium 134 L, Potassium 4.7, Chloride 105, Carbon Dioxide 24.0, Anion Gap 5, BUN 27 H, Creatinine 0.87, Estim Creat Clear Calc 111.54, Est GFR (MDRD) Af Amer 117, Est GFR (MDRD) Non-Af 97, BUN/Creatinine Ratio 31.0 H, Glucose 223 H, Calcium 8.2 L, Triglycerides 85, Cholesterol 129, LDL Cholesterol 70, VLDL Cholesterol 17, HDL Cholesterol 42, TSH 3.54 08/15/21 05:20: Troponin I High Sens 31 08/15/21 06:31: POC Glucose 233 H 08/15/21 11:08: POC Glucose 317 H 08/15/21 16:38: POC Glucose 338 H Cardiology Labs/Tests 08/14/21 21:20: WBC 6.8, RBC 5.30, Hgb 14.3, Hct 45.5, MCV 85.8, MCH 27.0, MCHC 31.4 L, Plt Count 243, MPV 11.5, Immature Gran % (Auto) 2.100 H, Neut % (Auto) 59.5, Lymph % (Auto) 27.5, [place] % (Auto) 8.7, Eos % (Auto) 1.3, Baso % (Auto) 0.9, Absolute Neuts (auto) 4.0, Nucleated RBC % 0 08/14/21 21:20: Sodium 134 L, Potassium 4.6, Chloride 105, Carbon Dioxide 24.0, Anion Gap 5, BUN 31 H, Creatinine 1.05, Est GFR (MDRD) Af Amer 94, Est GFR (MDRD) Non-Af 78, BUN/Creatinine Ratio 29.5 H, Glucose 214 H, Calcium 8.7 08/14/21 21:20: B-Natriuretic Peptide 653.4 H 08/14/21 21:20: D-Dimer Quant (PE/DVT) 0.45 08/14/21 21:20: Magnesium 2.0 08/15/21 05:20: WBC 6.5, RBC 4.98, Hgb 13.4, Hct 41.9, MCV 84.1, MCH 26.9 L, MCHC 32.0, Plt Count 184, MPV 11.1, Immature Gran % (Auto) 1.800 H, Neut % (Auto) 69.3, Lymph % (Auto) 19.2, [place] % (Auto) 7.4, Eos % (Auto) 1.4, Baso % (Auto) 0.9, Absolute Neuts (auto) 4.5, Nucleated RBC % 0 08/15/21 05:20: Sodium 134 L, Potassium 4.7, Chloride 105, Carbon Dioxide 24.0, Anion Gap 5, BUN 27 H, Creatinine 0.87, Est GFR (MDRD) Af Amer 117, Est GFR (MDRD) Non-Af 97, BUN/Creatinine Ratio 31.0 H, Glucose 223 H, Calcium 8.2 L, Triglycerides 85, Cholesterol 129, LDL Cholesterol 70, VLDL Cholesterol 17, HDL Cholesterol 42 Rhythm: EKG: ECHO: Stress Test: Cardiac Cath: PCI: CT Surgery: Holter monitor: EPS: PPM: CXR: Chest CT Scan: Radiography Diagnostic Testing: Radiology Impression Chest X-Ray 08/14/21 22:12 Echocardiogram 08/15/21 01:25 Interpretation Summary Moderately dilated left ventricle. The estimated ejection fraction is 15 %. Unable to assess diastolic dysfunction due to arrhythmia. Pulmonary artery systolic pressure is 50 mmHg. Contrast injection was performed. Ordering Physician: Delonte Lees Referring Physician: Margot Mai Performed By: Lala Lemons, JAIDNE, RVT
[2021-08-15 21:56] LABS: Bedside Glucose 172 mg/dL (74-106)
[2021-08-16] VITALS (17 sets, daily range): BP systolic 95–121; BP diastolic 68–100; PULSE 60–113; RESP 13–24; TEMP 36.2–36.4; O2SAT 90–100
[2021-08-16 06:23] LABS: Absolute Lymphocyte Count 1.81 X10^3/uL (0.83-4.51); Absolute Neutrophil Count 3.8 X10^3/uL (2.0-7.7); Basophil# 0.06 X10^3/uL; Basophil% 0.9 % (0-1); Eosinophil# 0.07 X10^3/uL; Eosinophils% 1.1 % (0-5); Hematocrit 42.5 % (40-54); Hemoglobin 13.3 g/dL (13.0-16.5); Lymphocyte # 1.81 X10^3/ul (0.83-4.51); Lymphocyte % 27.2 % (19-41); Mean Corp Hgb Conc 31.3 g/dL (32-36); Mean Corpuscular Hgb 26.9 pg (27.0-32.0); Mean Platelet Vol. 11.3 fl (6.2-12.0); Monocyte# 0.81 X10^3/uL; Monocyte% 12.2 % (0-10); NRBC Flagged by Analyzer 0 % (0-5); Neutrophil # 3.84 X10^3/uL (2.7-7.7); Neutrophil % 57.5 % (47-70); Platelet Count 171 K/mm3 (150-450); RBC Distribution Width CV 14.5 % (11.6-14.6); RBC Distribution Width SD 45.5 fl (35.1-43.9); Red Blood Count 4.94 M/mm3 (4.6-6.2); White Blood Count 6.7 K/mm3 (4.4-11.0)
[2021-08-16 06:46] LABS: Bedside Glucose 129 mg/dL (74-106)
[2021-08-16 06:59] LABS: ALB/GLOB Ratio 0.9 RATIO (0.9-2.4); AST(SGOT) 15 U/L (15-37); Alanine Aminotransfer ALT/SGPT 22 U/L (16-61); Alkaline Phosphatase 57 U/L (45-117); Anion Gap 4 (5-15); BUN 29 mg/dL (7-18); BUN/Creat Ratio 28.4 RATIO (10-20); Chloride 104 mmol/L (98-107); Creatinine, Serum 1.02 mg/dL (0.70-1.30); EST Glomerular Filtration Rate 80 mL/min (>60); Est Glom Filt Rate - Afr Amer 97 mL/min (>60); Estimated Creatinine Clearance 95.14 ml/min; Globulin 3.3 g/dL (2.2-4.2); Glucose 114 mg/dL (74-106); Potassium 4.1 mmol/L (3.5-5.1); Protein, Total 6.3 g/dL (6.4-8.2); Sodium Level 136 mmol/L (136-145)
[2021-08-16] MEDS: Potassium Chloride Oral Tablet 20 MEQ 40 MEQ PO (09:09)
[2021-08-16] MEDS: Carvedilol 6.25 MG Tablet PO ×2 (09:10→14:49)
[2021-08-16] MEDS: Furosemide 40 MG/4 ML Vial IV (09:10)
[2021-08-16] MEDS: Enoxaparin 150 MG/ML Syringe SC (09:10)
[2021-08-16] MEDS: buPROPion (SR) 150 MG Tablet.SA PO (09:10)
[2021-08-16] MEDS: Glimepiride 4 MG Tablet PO ×2 (09:10→16:15)
[2021-08-16] MEDS: Insulin NPH Human 100 UNITS/ML PEN 20 UNITS SC (09:11)
[2021-08-16] MEDS: 0.9% Saline Lock 10 ML Syringe IV (09:11)
[2021-08-16] MEDS: Lisinopril 2.5 MG Tablet PO (09:11)
[2021-08-16] MEDS: Amiodarone 200 MG Tablet PO (10:26)
--- NOTE | 2021-08-16 11:07 | PN.CARD_ITS ---
Subjective Subjective Patient seen and evaluated. Appears to be breathing better. Objective Data Vital Signs: Vital Signs Temp Pulse Resp BP Pulse Ox 97.3 F L 98 18 98/81 H 95 08/16/21 06:00 08/16/21 11:00 08/16/21 11:00 08/16/21 11:00 08/16/21 11:00 Oxygen Delivery Method Room Air Weight: 340 lb 6.299 oz Body Mass Index (BMI) 44.0 Intake & Output: Intake and Output for Last 24 Hours 08/14/21 08/15/21 08/16/21 23:59 23:59 23:59 Intake Total 976.18 / 976.18 182.31 / 182.31 Output Total 2275 / 3500 1575 / 1575 Balance -1298.82 / -2523.82 -1392.69 / -1392.69 Lab / Micro Data Result Diagrams: 08/16/21 05:41 08/16/21 05:41 Labs: Laboratory Results - last 24 hr 08/15/21 11:08: POC Glucose 317 H 08/15/21 16:38: POC Glucose 338 H 08/15/21 21:40: POC Glucose 172 H 08/16/21 05:41: WBC 6.7, RBC 4.94, Hgb 13.3, Hct 42.5, MCV 86.0, MCH 26.9 L, MCHC 31.3 L, RDW Std Deviation 45.5 H, RDW Coeff of Jett 14.5, Plt Count 171, MPV 11.3, Immature Gran % (Auto) 1.100 H, Neut % (Auto) 57.5, Lymph % (Auto) 27.2, [place] % (Auto) 12.2 H, Eos % (Auto) 1.1, Baso % (Auto) 0.9, Absolute Neuts (auto) 3.8, Absolute Lymphs (auto) 1.81, Nucleated RBC % 0 08/16/21 05:41: Sodium 136, Potassium 4.1, Chloride 104, Carbon Dioxide 28.0, Anion Gap 4 L, BUN 29 H, Creatinine 1.02, Estim Creat Clear Calc 95.14, Est GFR (MDRD) Af Amer 97, Est GFR (MDRD) Non-Af 80, BUN/Creatinine Ratio 28.4 H, Glucose 114 H, Calcium 9.0, Total Bilirubin 0.50, AST 15, ALT 22, Alkaline Phosphatase 57, Total Protein 6.3 L, Albumin 3.0 L, Globulin 3.3, Albumin/Globulin Ratio 0.9 08/16/21 06:39: POC Glucose 129 H Cardiology Labs/Tests 08/16/21 05:41: WBC 6.7, RBC 4.94, Hgb 13.3, Hct 42.5, MCV 86.0, MCH 26.9 L, MCHC 31.3 L, Plt Count 171, MPV 11.3, Immature Gran % (Auto) 1.100 H, Neut % (Auto) 57.5, Lymph % (Auto) 27.2, [place] % (Auto) 12.2 H, Eos % (Auto) 1.1, Baso % (Auto) 0.9, Absolute Neuts (auto) 3.8, Nucleated RBC % 0 08/16/21 05:41: Sodium 136, Potassium 4.1, Chloride 104, Carbon Dioxide 28.0, Anion Gap 4 L, BUN 29 H, Creatinine 1.02, Est GFR (MDRD) Af Amer 97, Est GFR (MDRD) Non-Af 80, BUN/Creatinine Ratio 28.4 H, Glucose 114 H, Calcium 9.0, Total Bilirubin 0.50 Rhythm: EKG: ECHO: Stress Test: Cardiac Cath: PCI: CT Surgery: Holter monitor: EPS: PPM: CXR: Chest CT Scan: Physical Exam Const alert, oriented x3 and no apparent distress General Appearance: cooperative HEENT hearing grossly normal bilaterally Head and Scalp: atraumatic Eyes EOMs intact bilaterally Neck General: normal visual inspection Chest inspection of chest normal and palpation of chest normal Resp normal respiratory effort Auscultation: clear to auscultation bilaterally Cardio S1 normal heart sound and S2 normal heart sound Jugular Venous Distention: JVD Rhythm: abnormal rhythm irregularly irregular GI normal to inspection, nondistended, normoactive bowel sounds Extremity normal capillary refill and no pedal edema Peripheral Pulses: Yes pulses 2+ throughout and femoral pulses present Skin no rashes or lesions noted Neuro oriented x3 and CN's II-XII intact bilaterally Psych Appearance: grossly normal and appropriate Assessment & Plan Assessment/Plan (1) New onset a-fib: PLAN: Patient appears to be in atrial fibrillation with a rapid ventricular response rate. My recommendation at this time will be to control his ventricular response rate, anticoagulate him. * His echocardiogram demonstrated severe left ventricular systolic dysfunction. 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 * Would recommend we continue with titrating up his beta-jada and anticoagula tion and then further recommendations will be made. I would also like to continue amiodarone for short-term. (2) CHF (congestive heart failure): QUALIFIERS: Heart failure type: unspecified Heart failure chroni city: acute Qualified Code(s): I50.9 - Heart failure, unspecified PLAN: He does appear to have acute congestive heart failure which appears to be systolic heart failure with reduced left ventricular systolic function. Would recommend intravenous diuresis with Lasix Would start PRIETO inhibitor as patient tolerates Continue beta-jada We will consider SGLT2 inhibitor. I would also consider DC cardioversion at some point to see whether this would improve his left ventricular systolic function. As an outpatient to be considered for stress testing after his ventricular response rate is controlled.
[2021-08-16 11:16] LABS: Bedside Glucose 332 mg/dL (74-106)
[2021-08-16] MEDS: Insulin Lispro 100 UNIT/ML INSULN.PEN SC ×2 (11:25→16:15)
[2021-08-16 11:54] LABS: International Normalized Ratio 1.4; Prothrombin Time (Protime)PT. 16.4 SECONDS (11.7-14.9)
[2021-08-16 16:26] LABS: Bedside Glucose 185 mg/dL (74-106)
--- NOTE | 2021-08-16 17:45 | PCM.DC ---
Discharge Instructions Diet Discharge Diet: 1800 Calorie Control Diet Activity Discharge Activity: Return to Normal Activity Return to work on:: 09/13/21 Weight Bearing Status: Full weight bearing Follow Up Care Test Results: Test results from this visit will be discussed in further detail at your follow-up appointment, if applicable. Discharge Plan Admission Admit Date/Time: 08/14/21 23:42 Primary Reason for Your Visit: congestive heart failure, a-fib Attending Provider: Marc Hirsch Primary Care Provider: Margot Mai Consulting Providers: Lazaro Marcus Instructions Additional Instructions / Restrictions: Do not return to work until seen by cardiology-they will give you a return to work date Discharge Orders/Prescriptions Prescriptions: New furosemide [Lasix] 20 mg tablet 60 mg PO DAILY Qty: 90 RF: 0 potassium chloride 10 mEq tablet extended release 20 meq PO DAILY Qty: 60 RF: 0 warfarin 5 mg tablet 7.5 mg PO DAILY Qty: 60 RF: 0 amiodarone 200 mg tablet 200 mg PO BID Qty: 60 RF: 0 carvedilol 12.5 mg tablet 12.5 mg PO BID Qty: 60 RF: 0 Continued bupropion HCl 150 mg tablet sustained-release 12 hr 150 mg PO DAILY RF: 0 metformin 1,000 mg tablet 1,000 mg PO BID RF: 0 glimepiride 4 mg tablet 4 mg PO BID RF: 0 Novolin N NPH U-100 Insulin 100 unit/mL suspension 20 unit SUBCUT BID RF: 0 albuterol sulfate 90 mcg/actuation HFA aerosol inhaler 2 puff INHALATION Q4H PRN PRN (Reason: Wheezing) RF: 0 pioglitazone 30 mg tablet 30 mg PO DAILY RF: 0 lisinopril 2.5 mg tablet 2.5 mg PO DAILY RF: 0 Referrals / Follow Up: Lazaro Marcus MD [STAFF PHYSICIAN] - See Referral Note (in 3 weeks-call for appointment) Margot Mai MD [Primary Care Provider] - Within 2 Weeks Disposition Disposition (needs filled in before D/C Order can be placed): Home, Self Care
--- NOTE | 2021-08-16 18:20 | DS.PCM_ITS ---
Providers Date of Admission: 08/14/21 Date of Discharge: 08/16/21 Primary Care Physician: Dr. Margot Mai MD Consultations 08/15/21 08:11 Consult: Cardiology Routine Consulting Provider: Lazaro Marcus Reason for Consult: New onset Afib RVR EMERGENT Consult: No MD Notified: Yes Date Notified: 08/15/21 Time Notified: 08:15 Method of Notification: Text Reason For Visit: AFIB WITH RVR; HEART FAILURE Diagnosis Discharge Diagnosis (1) New onset a-fib: Status: Acute Code(s): I48.91 - Unspecified atrial fibrillation (2) CHF (congestive heart failure): Status: Acute Code(s): I50.9 - Heart failure, unspecified Qualifiers: Heart failure chronicity: acute Heart failure type: unspecified Qualified Code(s): I50.9 - Heart failure, unspecified Plan: 1. Acute systolic congestive heart failure #2 new onset atrial fibrillation with RVR #3 cardiomyopathy-probably rate induced, possibly secondary to undiagnosed coronary artery disease #4 type 2 diabetes-poorly controlled #5 chronic depression #6 morbid obesity #7 obstructive sleep apnea-compliant with CPAP #8 moderate pulmonary 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 Medications at Discharge Home Medications Novolin N NPH U-100 Insulin 20 unit SUBCUT BID 08/14/21 albuterol sulfate 2 puff INHALATION Q4H PRN PRN 08/14/21 bupropion HCl 150 mg PO DAILY 08/14/21 glimepiride 4 mg PO BID 08/14/21 lisinopril 2.5 mg PO DAILY 08/14/21 metformin 1,000 mg PO BID 08/14/21 pioglitazone 30 mg PO DAILY 08/14/21 amiodarone 200 mg PO BID #60 tab 08/16/21 carvedilol 12.5 mg PO BID #60 tab 08/16/21 furosemide [Lasix] 60 mg PO DAILY #90 tab 08/16/21 potassium chloride 20 meq PO DAILY #60 tab 08/16/21 warfarin 7.5 mg PO DAILY #60 tab 08/16/21 Hospital Course Operations None Procedures 2-D Echocardiogram Summary of Care Provided Minutes Spent on Discharge: 32 Hospital Course: This 55-year-old white male was seen in the emergency room at [facility] with complaints of worsening shortness of breath over the last 1 to 2 weeks. Patient denied any chest pain. Work-up in the emergency room included labs which were remarkable for a glucose of 214, beta natruretic peptide was elevated at 653, CBC was unremarkable, chest x-ray was read out as showing chronic changes, EKG showed atrial fibrillation with a rate of 146. Patient was given IV Cardizem in the emergency room and placed on Lovenox subcu, troponin was normal at 37, patient was given 40 mg of IV Lasix and he did not require supplemental oxygen to maintain his pulse ox above 90%. Patient was admitted to PCU for acute congestive heart failure and atrial fibrillation-new onset-with RVR. Patient was seen in consultation by cardiology, he was placed on rate control medications and he was kept on subcu Lovenox for full anticoagulation. Patient ultimately had to be placed on IV amiodarone and was transitioned to oral amiodarone. Patient was given IV Lasix for his congestive heart failure, he did not require supplemental oxygen while in the hospital. Patient's echocardiogram was markedly abnormal with an ejection fraction of 15% and evidence of pulmonary 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. It was felt that the patient probably had a rate mediated cardiomyopathy and it was not felt that a cardiac catheterization was necessary during this hospitalization. Patient's overall status improved during his hospitalization. On 08/16/2021, patient was seen and examined: On examination he appeared in good health and spirits. Vital signs as documented. Skin warm and dry and without overt rashes. Neck without JVD, neck was supple, trachea midline, thyroid was normal. Lungs clear bilaterally, normal air movement was noted. Heart exam notable for irregular rhythm, normal sounds and absence of murmurs, rubs or gallops. Abdomen unremarkable and without evidence of organomegaly, masses, or abdominal aortic enlargement. Patient was morbidly obese. Bowel sounds are present, abdomen is not distended. Extremities nonedematous, no cyanosis was noted, no clubbing was noted. Neuro: Cranial nerves II through XII are grossly intact, no focal motor deficits were noted, sensation to light touch and pinprick intact, motor exam 5/5 throughout. Psych: Patient is alert and oriented x3, he does not appear anxious or depressed, he does not appear agitated. On 08/16/2021, I had a long discussion with the patient concerning his multiple medical problems, patient has not seen a physician regarding his CPAP machine for his obstructive sleep apnea since 2003. I urged him to follow-up as soon as possible with Dr. Roque who prescribed his original CPAP machine. I also talked to the patient about his need for anticoagulation, he does not have insurance and so he will not be able to afford Eliquis or Xarelto, I placed him on Coumadin, patient is aware that there will be a window when he goes home where he will not be anticoagulated and he chooses not to use Lovenox for that time., He states that he feels that he will be all right just taking Coumadin and waiting for the Coumadin to become therapeutic. I talked to his also about this-she was in the room at the time of my examination. Finally, I talked with cardiology about his care and I also put in a phone call to his PCP Dr. Mai and talk to her briefly about his medical care. I provided the patient a prescription for lab work to be drawn next Sunday (08/22/2021) and this lab will be forwarded to and Dr. Mai. On 08/16/2021, patient appeared stable for discharge home. Weight / BMI Weight Weight: 154.4 kg Body Mass Index (BMI) 44.0 ABG / Lab / Microbiology Data Result Diagrams: 08/16/21 05:41 08/16/21 05:41 Laboratory: Laboratory Results - last 24 hr 08/15/21 21:40: POC Glucose 172 H 08/16/21 05:41: WBC 6.7, RBC 4.94, Hgb 13.3, Hct 42.5, MCV 86.0, MCH 26.9 L, MCHC 31.3 L, RDW Std Deviation 45.5 H, RDW Coeff of Ejtt 14.5, Plt Count 171, MPV 11.3, Immature Gran % (Auto) 1.100 H, Neut % (Auto) 57.5, Lymph % (Auto) 27.2, Moody % (Auto) 12.2 H, Eos % (Auto) 1.1, Baso % (Auto) 0.9, Absolute Neuts (auto) 3.8, Absolute Lymphs (auto) 1.81, Nucleated RBC % 0 08/16/21 05:41: Sodium 136, Potassium 4.1, Chloride 104, Carbon Dioxide 28.0, Anion Gap 4 L, BUN 29 H, Creatinine 1.02, Estim Creat Clear Calc 95.14, Est GFR (MDRD) Af Amer 97, Est GFR (MDRD) Non-Af 80, BUN/Creatinine Ratio 28.4 H, Glucose 114 H, Calcium 9.0, Total Bilirubin 0.50, AST 15, ALT 22, Alkaline Phosphatase 57, Total Protein 6.3 L, Albumin 3.0 L, Globulin 3.3, Albumin/Globulin Ratio 0.9 08/16/21 06:39: POC Glucose 129 H 08/16/21 11:12: POC Glucose 332 H 08/16/21 11:35: PT 16.4 H, INR 1.4 08/16/21 16:10: POC Glucose 185 H D/C Instructions Discharge Diet: 1800 Calorie Control Diet Return to work on: 09/13/21 Weight Bearing Status: Full weight bearing Meaningful Use Info Meaningful Use Diagnoses (Choose all that apply): CHF CHF PRIETO/ARB ordered at discharge?: Yes Documented LVEF (%): 15 Discharge Plan Admission Admit Date/Time: 08/14/21 23:42 Primary Reason for Your Visit: congestive heart failure, a-fib Attending Provider: Marc Hirsch Primary Care Provider: Margot Mai Consulting Providers: Lazaro Marcus Instructions Additional Instructions / Restrictions: Do not return to work until seen by cardiology-they will give you a return to work date Discharge Orders/Prescriptions Prescriptions: New furosemide [Lasix] 20 mg tablet 60 mg PO DAILY Qty: 90 RF: 0 potassium chloride 10 mEq tablet extended release 20 meq PO DAILY Qty: 60 RF: 0 warfarin 5 mg tablet 7.5 mg PO DAILY Qty: 60 RF: 0 amiodarone 200 mg tablet 200 mg PO BID Qty: 60 RF: 0 carvedilol 12.5 mg tablet 12.5 mg PO BID Qty: 60 RF: 0 Continued bupropion HCl 150 mg tablet sustained-release 12 hr 150 mg PO DAILY RF: 0 metformin 1,000 mg tablet 1,000 mg PO BID RF: 0 glimepiride 4 mg tablet 4 mg PO BID RF: 0 Novolin N NPH U-100 Insulin 100 unit/mL suspension 20 unit SUBCUT BID RF: 0 albuterol sulfate 90 mcg/actuation HFA aerosol inhaler 2 puff INHALATION Q4H PRN PRN (Reason: Wheezing) RF: 0 pioglitazone 30 mg tablet 30 mg PO DAILY RF: 0 lisinopril 2.5 mg tablet 2.5 mg PO DAILY RF: 0 Referrals / Follow Up: Lazaro Marcus MD [STAFF PHYSICIAN] - See Referral Note (in 3 weeks-call for appointment) Margot Mai MD [Primary Care Provider] - Within 2 Weeks Disposition Disposition (needs filled in before D/C Order can be placed): Home, Self Care Charges/Coding Visit Charges Inpatient E&M: 63914 Disch Hosp
== END 2021-08-16 18:42 | disposition home or self-care (01) | DRG 308 ==
LOC: ED 23:40 → PCU 08-15 00:01
PROVIDERS: Internal Medicine; Admitting Provider Hospitalist; Emergency Provider Emergency Medicine; PCP Family Medicine; Visit Provider Internal Medicine
DX: I48.91 Unspecified atrial fibrillation (principal); I50.21 Acute systolic (congestive) heart failure; Z68.41 Body mass index [BMI] 40.0-44.9, adult; I27.20 Pulmonary 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, unspecified; I42.9 Cardiomyopathy, unspecified; E11.65 Type 2 diabetes mellitus with hyperglycemia; J44.9 Chronic obstructive pulmonary disease, unspecified; E66.01 Morbid (severe) obesity due to excess calories; Z79.4 Long term (current) use of insulin; G47.33 Obstructive sleep apnea (adult) (pediatric); I25.10 Atherosclerotic heart disease of native coronary artery without angina pectoris; Z87.891 Personal history of nicotine dependence; F32.A Depression, unspecified; Z79.84 Long term (current) use of oral hypoglycemic drugs; Z79.01 Long term (current) use of anticoagulants; Z79.899 Other long term (current) drug therapy
CPT/HCPCS: 36415; 71045; 80048; 80053; 80061; 82962; 83735; 83880; 84443; 84484; 85025; 85379; 85610; 93005; 93306; 94762; 97802; 99285; 99406; Q9957; A4216; C8929; J1940

== ENCOUNTER 2021-08-22 07:40 | Outpatient (CLI) | payer SELFPAY ==
[2021-08-22 08:49] LABS: International Normalized Ratio 1.6; Prothrombin Time (Protime)PT. 17.9 SECONDS (11.7-14.9)
[2021-08-22 09:20] LABS: Anion Gap 3 (5-15); BUN 26 mg/dL (7-18); BUN/Creat Ratio 21.8 RATIO (10-20); Calcium,Total 8.5 mg/dL (8.5-10.1); Chloride 103 mmol/L (98-107); Creatinine, Serum 1.19 mg/dL (0.70-1.30); EST Glomerular Filtration Rate 67 mL/min (>60); Est Glom Filt Rate - Afr Amer 81 mL/min (>60); Glucose 179 mg/dL (74-106); Potassium 4.6 mmol/L (3.5-5.1); Sodium Level 137 mmol/L (136-145)
== END 2021-08-22 23:59 | disposition home or self-care (01) ==
PROVIDERS: PCP Family Medicine; Referring Provider Internal Medicine; Visit Provider Internal Medicine
DX: I50.9 Heart failure, unspecified (principal); I48.91 Unspecified atrial fibrillation; Z79.01 Long term (current) use of anticoagulants
CPT/HCPCS: 36415; 80048; 85610

== ENCOUNTER → 2021-09-07 | Outpatient (CLI) | payer SELFPAY ==
[2021-09-07 10:53] LABS: International Normalized Ratio 2.4; Prothrombin Time (Protime)PT. 25.7 SECONDS (11.7-14.9)
[2021-09-07 11:17] LABS: Anion Gap 7 (5-15); BUN 28 mg/dL (7-18); BUN/Creat Ratio 26.7 RATIO (10-20); Calcium,Total 8.5 mg/dL (8.5-10.1); Chloride 101 mmol/L (98-107); Creatinine, Serum 1.05 mg/dL (0.70-1.30); EST Glomerular Filtration Rate 78 mL/min (>60); Est Glom Filt Rate - Afr Amer 94 mL/min (>60); Glucose 245 mg/dL (74-106); Potassium 4.7 mmol/L (3.5-5.1); Sodium Level 137 mmol/L (136-145)
== END | disposition home or self-care (01) ==
LOC: LAB 10:28
PROVIDERS: PCP Family Medicine; Referring Provider Physician Assistant Medical; Visit Provider Physician Assistant Medical
DX: I48.91 Unspecified atrial fibrillation (principal)
CPT/HCPCS: 36415; 80048; 85610

== ENCOUNTER → 2021-09-28 | Outpatient (CLI) | payer SELFPAY ==
[2021-09-28 14:49] LABS: Anion Gap 5 (5-15); BUN 28 mg/dL (7-18); BUN/Creat Ratio 26.7 RATIO (10-20); Calcium,Total 8.7 mg/dL (8.5-10.1); Chloride 103 mmol/L (98-107); Creatinine, Serum 1.05 mg/dL (0.70-1.30); EST Glomerular Filtration Rate 78 mL/min (>60); Est Glom Filt Rate - Afr Amer 94 mL/min (>60); Glucose 154 mg/dL (74-106); Potassium 4.3 mmol/L (3.5-5.1); Sodium Level 138 mmol/L (136-145)
== END | disposition home or self-care (01) ==
PROVIDERS: PCP Family Medicine; Visit Provider Physician Assistant Medical
DX: I48.91 Unspecified atrial fibrillation (principal)
CPT/HCPCS: 36415; 80048

== ENCOUNTER 2021-09-30 10:26 | Day surgery (SDC) | payer SELFPAY ==
[2021-09-29 08:39] VITALS: BMI 42.5
[2021-09-30 10:36] LABS: INR Fingerstick 3.1; Prothrombin Time Fingerstick 35.1 SEC (11.7-14.9)
--- NOTE | 2021-09-30 11:49 | PCM.OP.PRO ---
Procedure Report Date of Procedure: 09/30/21 CONSCIOUS SEDATION REPORT DATE OF SERVICE: September 30, 2021 BRIEF HISTORY OF PRESENT ILLNESS: The patient is a 56-year-old male who presented to [facility] for an elective outpatient cardioversion due to underlying atrial fibrillation. The patient has never previously undergone a prior cardioversion. He denies any prior anesthetic complications. His last surface echocardiogram demonstrated an ejection fraction of 15%. The patient is currently anticoagulated on Coumadin with an INR this morning noted to be 3.1. He does have a reported history of COPD of unknown severity along with obstructive sleep apnea, for which he reports compliance with the use of nocturnal CPAP therapy. PHYSICAL EXAMINATION: VITAL SIGNS: Reviewed and were acceptable. GENERAL: The patient is a morbidly obese male, in no apparent distress, speaking in full sentences. HEENT: Normocephalic, atraumatic. Mucous membranes are moist and pink. Good mouth opening noted. Trachea is midline. CHEST: S1, S2 irregularly irregular. No murmurs, rubs or gallops were noted. LUNGS: Clear to auscultation bilaterally without appreciable wheezes, rales or rhonchi. ABDOMEN: Soft, nontender, nondistended. Positive bowel sounds. EXTREMITIES: There is no clubbing, cyanosis or edema. ASA Class: II DESCRIPTION OF PROCEDURE: After confirmation of informed consent, the patient's anesthesia plan was reviewed in detail. Etomidate was chosen. Risks and benefits were reviewed and the patient agreed to proceed. At 1131, the patient was given his first bolus of etomidate. In total, the patient required 12 mg of etomidate throughout the entire procedure to facilitate 3 separate attempts at cardioversion, the first at 300 J, the second at 360 J and the third at 360 J. Unfortunately, this was not successful in achieving normal sinus rhythm. The patient was monitored until 1143, at which time he reached his baseline mental status and function. The patient tolerated the procedure well. COMPLICATIONS: None ESTIMATED BLOOD LOSS: None RECOMMENDATIONS: Okay to recover in usual fashion. Procedures Pulmonary 9xxxx: [id number] Con Sedation
--- NOTE | 2021-09-30 11:50 | OP.PCM_ITS ---
Problems Associated Problem List Diagnoses (1) Persistent atrial fibrillation: Operative Report Date of Procedure: 09/30/21 DC version. 56-year-old man with a history of symptomatic atrial fibrillation with reduced left ventricular systolic function. Patient presented to the cardiac ca theterization lab in the postabsorptive nonsedated state. Informed consent was obtained. The patient was seen by Dr. Torres of the critical care division. Anterior-posterior pads were applied. The patient was then administered intravenous etomidate up to 10 mg. 300 J of synchronized DC biphasic cardioversion energy was applied with failure to result in sinus rhythm. A second 360J of biphasic energy was applied which was also unsuccessful and a third 360 J of biphasic energy was also applied which was unsuccessful. It was decided not to pursue this approach. The patient would continue with antiarrhythmics for a few weeks and reattempt at the procedure. Conclusion: Unsuccessful DC cardioversion at this time
== END 2021-09-30 12:45 | disposition home or self-care (01) ==
LOC: CLSP 10:27
PROVIDERS: PCP Family Medicine; Referring Provider Internal Medicine Cardiovascular Disease; Visit Provider Internal Medicine Cardiovascular Disease
DX: I48.19 Other persistent atrial fibrillation (principal); J44.9 Chronic obstructive pulmonary disease, unspecified; I42.8 Other cardiomyopathies; E66.01 Morbid (severe) obesity due to excess calories; Z68.41 Body mass index [BMI] 40.0-44.9, adult; E11.9 Type 2 diabetes mellitus without complications; G47.33 Obstructive sleep apnea (adult) (pediatric); I10 Essential (primary) 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; Z79.84 Long term (current) use of oral hypoglycemic drugs; Z79.01 Long term (current) use of anticoagulants; Z79.899 Other long term (current) drug therapy; Z87.891 Personal history of nicotine dependence
CPT/HCPCS: 36416; 85610; 92960; 93005; J7030; J1940

== ENCOUNTER 2021-10-11 09:03 | Outpatient (RCR) | payer SELFPAY ==
[2021-09-14 10:51] LABS: International Normalized Ratio 2.9; Prothrombin Time (Protime)PT. 30.3 SECONDS (11.7-14.9)
[2021-09-21 10:34] LABS: International Normalized Ratio 2.8; Prothrombin Time (Protime)PT. 28.8 SECONDS (11.7-14.9)
[2021-10-04 11:49] LABS: Prothrombin Time (Protime)PT. 41.5 SECONDS (11.7-14.9)
[2021-10-04 11:58] LABS: International Normalized Ratio 4.4
[2021-10-11 10:06] LABS: Anion Gap 4 (5-15); BUN 32 mg/dL (7-18); BUN/Creat Ratio 25.6 RATIO (10-20); Calcium,Total 9.1 mg/dL (8.5-10.1); Chloride 101 mmol/L (98-107); Creatinine, Serum 1.25 mg/dL (0.70-1.30); EST Glomerular Filtration Rate 64 mL/min (>60); Est Glom Filt Rate - Afr Amer 77 mL/min (>60); Glucose 281 mg/dL (74-106); Potassium 4.7 mmol/L (3.5-5.1); Sodium Level 135 mmol/L (136-145)
== END 2021-10-11 18:00 | disposition home or self-care (01) ==
LOC: LAB 09:03
PROVIDERS: PCP Family Medicine; Visit Provider Physician Assistant Medical
DX: I48.91 Unspecified atrial fibrillation (principal); Z79.01 Long term (current) use of anticoagulants
CPT/HCPCS: 36415; 80048; 85610

== ENCOUNTER 2021-10-25 11:02 | Outpatient (RCR) | payer SELFPAY ==
[2021-10-18 12:41] LABS: International Normalized Ratio 3.8; Prothrombin Time (Protime)PT. 36.9 SECONDS (11.7-14.9)
[2021-10-25 11:49] LABS: International Normalized Ratio 2.9; Prothrombin Time (Protime)PT. 29.9 SECONDS (11.7-14.9)
== END 2021-10-25 23:59 | disposition home or self-care (01) ==
LOC: LAB 11:02
PROVIDERS: PCP Family Medicine; Visit Provider Physician Assistant Medical
DX: I48.91 Unspecified atrial fibrillation (principal); Z79.01 Long term (current) use of anticoagulants
CPT/HCPCS: 36415; 85610

== ENCOUNTER 2021-10-27 10:31 | Day surgery (SDC) | payer SELFPAY ==
[2021-10-26 09:28] VITALS: BMI 42.5
[2021-10-27 10:45] LABS: INR Fingerstick 2.9; Prothrombin Time Fingerstick 33.4 SEC (11.7-14.9)
--- NOTE | 2021-10-27 12:04 | PCM.OP.BLANK ---
Problems Associated Problem List Diagnoses (1) Persistent atrial fibrillation: (2) Cardiomyopathy: Operative Report Date of Procedure: 10/27/21 DC cardioversion 56-year-old man with a history of persistent atrial fibrillation with a reduced left ventricular systolic function. Patient had failed initial cardioversion on medication. He was loaded with amiodarone and brought back for repeat cardioversion. After informed consent was obtained the patient was seen by Dr. Torres of the critical care division. Anterior-posterior pads were applied. The patient was then administered 8 mg of intravenous etomidate. 300 J of biphasic synchronous DC cardioversion energy were applied which failed to result in sinus rhythm. An additional 360 J of biphasic cardioversion energy were applied which also failed to result in sinus rhythm. Conclusion: Failed DC cardioversion from atrial fibrillation to sinus rhythm. Continue current anticoagulation. Continue beta-jada We will consider patient for A. fib ablation. Discontinue amiodarone
--- NOTE | 2021-10-27 12:45 | PCM.OP.PRO ---
Procedure Report Date of Procedure: 10/27/21 CONSCIOUS SEDATION REPORT DATE OF SERVICE: October 27, 2021 BRIEF HISTORY OF PRESENT ILLNESS: The patient is a 56-year-old male who presented to [facility] for an elective outpatient cardioversion due to underlying atrial fibrillation.? The patient did undergo an unsuccessful cardioversion in September 2021. He denies any prior anesthetic complications.? His last surface echocardiogram demonstrated an ejection fraction of 15%.? The patient is currently anticoagulated on Coumadin with an INR this morning noted to be 2.9.? He does have a reported history of COPD of unknown severity along with obstructive sleep apnea, for which he reports compliance with the use of nocturnal CPAP therapy. PHYSICAL EXAMINATION: VITAL SIGNS: Reviewed and were acceptable. GENERAL: The patient is a morbidly obese male, in no apparent distress, speaking in full sentences. HEENT: Normocephalic, atraumatic.? Mucous membranes are moist and pink.? Good mouth opening noted.? Trachea is midline. CHEST: S1, S2 irregularly irregular.? No murmurs, rubs or gallops were noted. LUNGS: Clear to auscultation bilaterally without appreciable wheezes, rales or rhonchi. ABDOMEN: Soft, nontender, nondistended.? Positive bowel sounds. EXTREMITIES: There is no clubbing, cyanosis or edema. ASA Class: II DESCRIPTION OF PROCEDURE: After confirmation of informed consent, the patient's anesthesia plan was reviewed in detail.? Etomidate was chosen.? Risks and benefits were reviewed and the patient agreed to proceed.? At 1158, the patient was given 8 mg of etomidate to achieve an appropriate level of sedation, after which time, 2 separate attempts at cardioversion were undertaken, the first at 300 J and the second at 360 J. Unfortunately, neither were successful in restoring normal sinus rhythm. The patient was monitored until 1210, at which time he reached his baseline mental status and function.? The patient tolerated the procedure well. COMPLICATIONS: None ESTIMATED BLOOD LOSS: None RECOMMENDATIONS: Okay to recover in usual fashion. Procedures Pulmonary 9xxxx: [id number] Con Sedation
== END 2021-10-27 13:05 | disposition home or self-care (01) ==
PROVIDERS: PCP Family Medicine; Referring Provider Internal Medicine Cardiovascular Disease; Visit Provider Internal Medicine Cardiovascular Disease
DX: I48.19 Other persistent atrial fibrillation (principal); J44.9 Chronic obstructive pulmonary disease, unspecified; I42.9 Cardiomyopathy, unspecified; I11.0 Hypertensive heart disease with heart failure; I50.9 Heart failure, unspecified; Z79.4 Long term (current) use of insulin; E11.9 Type 2 diabetes mellitus without complications; G47.33 Obstructive sleep apnea (adult) (pediatric); Z79.899 Other long term (current) drug therapy; Z79.84 Long term (current) use of oral hypoglycemic drugs; Z79.01 Long term (current) use of anticoagulants; Z87.891 Personal history of nicotine dependence
CPT/HCPCS: 36416; 85610; 92960; 93005; J7040

== ENCOUNTER 2021-11-16 10:05 | Outpatient (RCR) | payer MEDICAID, SELFPAY ==
[2021-11-16 10:53] LABS: Absolute Lymphocyte Count 1.05 X10^3/uL (0.83-4.51); Absolute Neutrophil Count 3.6 X10^3/uL (2.0-7.7); Basophil# 0.07 X10^3/uL; Basophil% 1.2 % (0-1); Eosinophil# 0.17 X10^3/uL; Hematocrit 43.1 % (40-54); Lymphocyte # 1.05 X10^3/ul (0.83-4.51); Lymphocyte % 18.6 % (19-41); Mean Corp Hgb Conc 32.5 g/dL (32-36); Mean Corpuscular Hgb 28.2 pg (27.0-32.0); Mean Corpuscular Volume 86.9 fL (80-94); Mean Platelet Vol. 11.5 fl (6.2-12.0); Monocyte# 0.48 X10^3/uL; Monocyte% 8.5 % (0-10); NRBC Flagged by Analyzer 0 % (0-5); Neutrophil # 3.63 X10^3/uL (2.7-7.7); Neutrophil % 64.4 % (47-70); Platelet Count 185 K/mm3 (150-450); RBC Distribution Width CV 16.1 % (11.6-14.6); RBC Distribution Width SD 50.8 fl (35.1-43.9); Red Blood Count 4.96 M/mm3 (4.6-6.2); White Blood Count 5.6 K/mm3 (4.4-11.0)
[2021-11-16 11:02] LABS: Partial Thromboplast Time 33.3 Seconds (24.1-36.2); Prothrombin Time (Protime)PT. 22.7 SECONDS (11.7-14.9)
[2021-11-16 11:24] LABS: Anion Gap 5 (5-15); BUN 23 mg/dL (7-18); BUN/Creat Ratio 20.5 RATIO (10-20); Chloride 102 mmol/L (98-107); Creatinine, Serum 1.12 mg/dL (0.70-1.30); EST Glomerular Filtration Rate 72 mL/min (>60); Est Glom Filt Rate - Afr Amer 87 mL/min (>60); Glucose 394 mg/dL (74-106); Potassium 4.5 mmol/L (3.5-5.1); Sodium Level 135 mmol/L (136-145)
== END 2021-12-11 03:16 | disposition home or self-care (01) ==
LOC: LAB 10:05
PROVIDERS: PCP Family Medicine; Referring Provider Physician Assistant Medical; Visit Provider Physician Assistant Medical
DX: I48.19 Other persistent atrial fibrillation (principal); Z79.01 Long term (current) use of anticoagulants; I42.9 Cardiomyopathy, unspecified; I10 Essential (primary) 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
CPT/HCPCS: 36415; 80048; 85025; 85610; 85730

== ENCOUNTER → 2021-11-25 | Day surgery (SDC) | payer MEDICAID, SELFPAY ==
[2021-11-24 12:39] VITALS: BMI 42.7
[2021-11-25 09:06] LABS: INR Fingerstick 1.1; Prothrombin Time Fingerstick 13.5 SEC (11.7-14.9)
--- NOTE | 2021-11-25 11:23 | CL.D_ITS ---
Patient Name: ALFIE BACON Study Date: 11/25/2021 Performing: Lazaro Marcus MD Ht: 74.01 inches 188 cm : 1965 Wt: 332.9 lbs 151 kg Age: 56 Gender: male BSA: 2.7 PROCEDURE(S) PERFORMED [id number])LHC/COR/LV CLINICAL PROFILE AND INDICATIONS Indications: Cardiac Arrythmia Heart Failure: NYHA Class: 3, Heart Failure Type: Systolic CAD Presentations: Unstable angina. CONCLUSIONS Normal coronary arteries RECOMMENDATIONS Medical therapy Consider for A. fib ablation. DESCRIPTION OF PROCEDURE The patient arrived to the procedure lab. The risks and benefits of the procedure as well as a full d escription of our services here and current unavailability of surgical backup were fully explained to the patient and/or their significant other prior to the catheterization. The Timeout was completed, verifying the correct patient and procedure. The patient's procedural site was prepped and draped in the usual fashion. Local anesthetic was given subcutaneously to right radial region with Lidocaine 2% . Using a modified Seldinger technique, arterial access was obtained via the right radial artery, a 6 Fr sheath was inserted. Left Coronary Artery selective angiography was performed in multiple views u sing a 5 Fr. 4.0 [place] catheter. Right Coronary Artery selective angiography was then performed in mu ltiple views using a 5 Fr. JR 5 catheter. Left Ventriculography was performed in CASTILLO projection using a 5 Fr. Pigtail catheter. LV to AO pullback pressures were then recorded.The arterial sheath was pulled and a TR Band was applied for hemostasis CORONARY ANGIOGRAPHY DOMINANCE: Right Dominant LEFT HEART ASSESSMENT Left Ventricular Ejection Fraction: by LV Gram 20 % Global Hypokinesis - Severe Depressed Left Ventricular systolic function LEFT MAIN: Angiographically normal LEFT ANTERIOR DESCENDING ARTERY: No significant disease noted CIRCUMFLEX ARTERY: Angiographically normal RIGHT CORONARY ARTERY: No significant disease noted COMPLICATIONS No Complications PROCEDURE MEDICATIONS Fentanyl 50 mcg IV Versed 1 mg IV Versed 1 mg IV Oxygen: 2 L/min via nasal cannula Heparin given IA 11/25/2021 11:03:16 SUMMARY OF HEMODYNAMIC DATA Time AIR REST ECG 09:24:36 Art 137/78 (97) 10:41:10 AO 120/87 (95) SA 11:05:08 LV 119/19, 20 11:15:03 LV 111/15, 22 11:15:10 LV 112/16, 24 11:15:54 LVp 116/23, 28 11:16:00 AO 123/75 (103) 11:16:05 Signed By Lazaro Marcus MD On 11/25/2021 11:22:38 AM Lazaro Marcus MD
== END | disposition home or self-care (01) ==
LOC: CLSP 08:58
PROVIDERS: PCP Family Medicine; Referring Provider Internal Medicine Cardiovascular Disease; Visit Provider Internal Medicine Cardiovascular Disease
DX: I11.0 Hypertensive heart disease with heart failure (principal); J44.9 Chronic obstructive pulmonary disease, unspecified; I42.9 Cardiomyopathy, unspecified; I50.20 Unspecified systolic (congestive) heart failure; I48.92 Unspecified atrial flutter; I48.19 Other persistent atrial fibrillation; E11.9 Type 2 diabetes mellitus without complications; Z79.4 Long term (current) use of insulin; G47.33 Obstructive sleep apnea (adult) (pediatric); Z79.01 Long term (current) use of anticoagulants; Z79.899 Other long term (current) drug therapy; Z87.891 Personal history of nicotine dependence
CPT/HCPCS: 36416; 85610; 93458; 99152; 99153; J7030; Q9967; C1769; C1894

== ENCOUNTER 2022-01-10 09:38 | Outpatient (RCR) | payer MEDICAID, SELFPAY ==
[2021-12-13 10:27] LABS: International Normalized Ratio 2.2; Prothrombin Time (Protime)PT. 24.1 SECONDS (11.7-14.9)
[2022-01-10 11:02] LABS: International Normalized Ratio 2.4; Prothrombin Time (Protime)PT. 25.7 SECONDS (11.7-14.9)
== END 2022-01-10 18:00 | disposition home or self-care (01) ==
LOC: LAB 09:38
PROVIDERS: PCP Family Medicine; Referring Provider Physician Assistant Medical; Visit Provider Physician Assistant Medical
DX: I48.19 Other persistent atrial fibrillation (principal); Z79.01 Long term (current) use of anticoagulants
CPT/HCPCS: 36415; 85610

== ENCOUNTER → 2022-01-20 | Outpatient (CLI) | payer MEDICAID, SELFPAY ==
--- NOTE | 2022-01-20 14:07 | ECHOCS_ITS ---
Reason For Study: ATRIAL FIB/FLUTTER Procedure This was a 2D Doppler, Color Flow transthoracic echocardiogram. The study was technically difficult. Exam performed in department. Left Ventricle Normal size and thickness. The estimated ejection fraction is 47 %. Mild global left ventricular systolic dysfunction. Right Ventricle Normal RV size. Normal systolic function. Atria The left atrium is mildly enlarged. Normal right atrium. Mitral Valve Normal mitral valve. Tricuspid Valve Normal tricuspid valve. Mild (1+) tricuspid valve insufficiency. Pulmonary artery systolic pressure is 36 mmHg. Aortic Valve The aortic valve is not well visualized. Pulmonic Valve Normal pulmonic valve. Great Vessels Normal aortic root. The pulmonary artery is normal size. Normal inferior vena cava. Pericardium/Pleural No pericardial effusion. Medication 22 gauge I.V. with prn adaptor inserted into right arm. Diluted definity 5ml given slow IV push to enhance endocardial definition. MMode/2D Measurements & Calculations LVIDd: 5.7 cm IVSd: 1.3 cm Ao root diam: 3.3 cm LVIDs: 4.3 cm LVPWd: 1.1 cm RVDd: 3.6 cm FS: 23.5 % LAV(MOD-bp): 63.1 ml LVAd ap4: 40.7 cm2 SV(MOD-sp4): 56.2 ml LAV(MOD-bp) Indexed: 23.6 ml/m2 LVLd ap4: 8.7 cm LAV(MOD-sp2): 58.0 ml EDV(MOD-sp4): 154.8 ml LAV(MOD-sp4): 63.8 ml EDV(sp4-el): 162.3 ml LVAs ap4: 30.7 cm2 LVLs ap4: 7.8 cm ESV(MOD-sp4): 98.6 ml ESV(sp4-el): 102.6 ml EF(MOD-sp4): 36.3 % EF(sp4-el): 36.7 % SV(sp4-el): 59.6 ml LA A4 area: 21.4 cm2 LA dimension(2D): 4.2 cm RA A4 area: 20.8 cm2 Doppler Measurements & Calculations MV E max shawanda: 106.3 cm/sec Ao V2 max: 117.3 cm/sec LV V1 max: 77.9 cm/sec Ao max P.6 mmHg LV V1 max P.5 mmHg PA V2 max: 84.4 cm/sec TR max shawanda: 288.2 cm/sec TR max P.2 mmHg ECHO/Echo Complete W/ Contrast Interpretation Summary Normal size and thickness. The estimated ejection fraction is 47 %. Mild global left ventricular systolic dysfunction. The left atrium is mildly enlarged. Pulmonary artery systolic pressure is 36 mmHg. Contrast injection was performed. Compared to previous study, the left ventricu lar systolic function has improved.. Ordering Physician: Lazaro Marcus Referring Physician: KESHA VIDALES Performed By: Maria Antonia Clinton, JAIDEN
== END | disposition home or self-care (01) ==
LOC: CVS 13:50
PROVIDERS: PCP Family Medicine; Referring Provider Internal Medicine Cardiovascular Disease; Visit Provider Internal Medicine Cardiovascular Disease
DX: I42.8 Other cardiomyopathies (principal)
CPT/HCPCS: 93306; Q9957; A4216; C8929

== ENCOUNTER 2022-02-07 10:05 | Outpatient (RCR) | payer MEDICAID, SELFPAY ==
[2022-01-17 11:17] LABS: International Normalized Ratio 2.2; Prothrombin Time (Protime)PT. 24.3 SECONDS (11.7-14.9)
[2022-01-24 11:42] LABS: International Normalized Ratio 2.5; Prothrombin Time (Protime)PT. 26.8 SECONDS (11.7-14.9)
[2022-02-01 09:28] LABS: International Normalized Ratio 3.9; Prothrombin Time (Protime)PT. 38.3 SECONDS (11.7-14.9)
[2022-02-07 11:05] LABS: International Normalized Ratio 3.1; Prothrombin Time (Protime)PT. 31.7 SECONDS (11.7-14.9)
== END 2022-02-07 18:00 | disposition home or self-care (01) ==
LOC: LAB 10:05
PROVIDERS: PCP Family Medicine; Referring Provider Physician Assistant Medical; Visit Provider Physician Assistant Medical
DX: I48.19 Other persistent atrial fibrillation (principal); Z79.01 Long term (current) use of anticoagulants
CPT/HCPCS: 36415; 85610

== ENCOUNTER 2022-02-28 10:02 | Outpatient (RCR) | payer MEDICAID, SELFPAY ==
[2022-02-14 12:22] LABS: International Normalized Ratio 2.7; Prothrombin Time (Protime)PT. 28.3 SECONDS (11.7-14.9)
[2022-02-21 11:15] LABS: International Normalized Ratio 2.3; Prothrombin Time (Protime)PT. 25.3 SECONDS (11.7-14.9)
[2022-02-28 10:54] LABS: Prothrombin Time (Protime)PT. 22.7 SECONDS (11.7-14.9)
== END 2022-02-28 18:00 | disposition home or self-care (01) ==
LOC: LAB 10:02
PROVIDERS: PCP Family Medicine; Referring Provider Physician Assistant Medical; Visit Provider Physician Assistant Medical
DX: I48.19 Other persistent atrial fibrillation (principal); Z79.01 Long term (current) use of anticoagulants
CPT/HCPCS: 36415; 85610

== ENCOUNTER 2022-03-29 08:50 | Outpatient (RCR) | payer MEDICAID, SELFPAY ==
[2022-03-29 12:25] LABS: International Normalized Ratio 2.5; Prothrombin Time (Protime)PT. 26.6 SECONDS (11.7-14.9)
== END 2022-04-12 23:59 ==
LOC: BFHLAB 08:50
PROVIDERS: PCP Family Medicine; Referring Provider Physician Assistant Medical; Visit Provider Physician Assistant Medical
DX: I48.19 Other persistent atrial fibrillation (principal); Z79.01 Long term (current) use of anticoagulants
CPT/HCPCS: 36415; 85610

== ENCOUNTER 2022-05-11 10:29 | Outpatient (RCR) | payer MEDICAID, SELFPAY ==
[2022-05-11 11:03] LABS: International Normalized Ratio 1.7; Prothrombin Time (Protime)PT. 19.5 SECONDS (11.7-14.9)
== END 2022-05-13 23:59 ==
LOC: PAVLAB 10:29
PROVIDERS: PCP Family Medicine; Referring Provider Physician Assistant Medical; Visit Provider Physician Assistant Medical
DX: I48.91 Unspecified atrial fibrillation (principal); Z79.01 Long term (current) use of anticoagulants
CPT/HCPCS: 36415; 85610

== ENCOUNTER 2022-05-24 08:10 | Day surgery (SDC) | payer MEDICAID, SELFPAY ==
[2022-05-24] VITALS (7 sets, daily range): BP systolic 86–119; BP diastolic 65–100; PULSE 112–130; RESP 16–18; TEMP 36.1–36.6; O2SAT 98–100; BMI 43.0
[2022-05-24] MEDS: Lactated Ringers 1,000 ML 15 ML IV (08:46)
--- NOTE | 2022-05-24 09:00 | EKG12_ITS ---
Test Reason : PRE OP Blood Pressure : / mmHG Vent. Rate : 130 BPM Atrial Rate : 130 BPM P-R Int : 128 ms QRS Dur : 092 ms QT Int : 334 ms P-R-T Axes : 000 034 061 degrees QTc Int : 491 ms Atrial flutter with 2 to [address] and T wave abnormality Abnormal ECG Confirmed by RASHMI DOWD, ZAIDA ([id number]), technical editor SHILPA CHIN ([id number] on 05/25/2022 8:28:11 AM Referred By: Yvonne Tamayo Confirmed By:ZAIDA CARABALLO MD
--- NOTE | 2022-05-24 09:15 | PCM.HP.BLA ---
History and Physical Date of Admission: 05/24/22 Date of Service:? 05/11/22 MR#: [id number] Acct: [id number] Name:ALFIE FERNANDEZ Rep #: [id number] : 1965 ? ? Provider: Dr. Yvonne Tamayo MD Age/Sex:? 56/M ? ? Location: [facility] Status: Signed Intake Vital Signs ? 11/25/2208:21 05/11/2209:31 Height 6 ft 2 in 6 ft 2 in Weight: ? 342 lb 8 oz BMI ? 43.9 BP ? 122/84 H Blood Pressure Location ? Rt brachial Position ? Sitting Respiration ? 18 Pulse ? 133 H Pulse Source ? Monitor Temp ? 97.2 F L Temp Source ? Temporal Pulse Oximetry (%) ? 96 Oxygen Delivery Method ? 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 Bunion H/O hernia repair History of cardioversion (10/27/21) Status post cryoablation of arrhythmia (03/01/22) Family History? Other COPD (chronic obstructive pulmonary disease) Colon cancer Heart disease Lung cancer Testicular cancer Social History? Smoking Status:? Former smoker HPI HPI HPI: 56-year-old male presents for colonoscopy.? Patient last colonoscopy was about 7 years ago patient was due 2 years ago.? Patient had polyp at his last colonoscopy in 2014 which was done by Dr[address] Simpson.? Patient states his dad was diagnosed colon cancer at age 72.? Patient states he has bowel moods daily denies any blood.? Patient denies any chronic abdominal pain/nausea/vomiting/reflux.? Patient is on warfarin due to A. fib. ROS General General: No weight change, appetite, fatigue, colon cancer, breast cancer or weakness HEENT HEENT: No difficulty swallowing, eye injury, eye surgery, swollen glands or hoarseness Endo Endocrine: Yes diabetes mellitus; No thyroid disease, thyroid cancer, Hair loss, heat intolerance or cold intolerance Skin Skin: No rash or changing moles Breast Breast: No left breast lump, right breast lump, nipple discharge, breast pain, abnormal mammogram, abnormal US or breast enlargement Musc Musculoskeletal: No back problems, arthritis, rheumatoid arthritis, gout or joint pain Cardio Cardiovascular: Yes heart disease and atrial fibrillation; No murmur, pacemaker, high blood pressure, heart attack, heart stent, palpitations, shortness of breat with exertion or chest pain Psych Psychiatric: No depression, anxiety or hearing voices Resp Respiratory: No shortness of breath, Yes sleep apnea, No cough, No COPD, No asthma, No emphysema and No wheezing Gastro Gastrointestinal: No abdominal pain, No nausea or vomiting, No diarrhea, No constipation, No blood in stool, No acid reflux, No hemorrhoids, No ulcers, No gallbladder problem and No black,tarry stools Kirk Hematologic: Yes blood thinners, No blood disorders, No bleeding, No anemia and No blood clots Neuro Neurologic: No system reviewed and no additional complaints, except as documented, No as per HPI, No abnormal gait, No abnormal hearing, No abnormal movements, No abnormal speech, No behavioral changes, No burning sensations, No confusion, No convulsions, No disequilibrium, No dizziness, No localized weakness, No frequent falls, No headache(s), No lack of coordination, No loss of vision, No memory loss, No numbness, No other visual disturbances, No radicular pain, No restless legs, No sensory deficit, No syncope, No tingling, No tremor(s), No weakness and No other Exam Const General: cooperative, healthy appearing and no acute distress [facility] Head: normal to inspection Resp Effort & Inspection: normal respiratory effort Cardio Rate: regular rate GI Inspection: non-distended Palpation: soft, no guarding, no hernias and nontender Skin General: no rashes or lesions noted Neuro General: patient oriented x3 Extrem General: no clubbing, cyanosis or edema Psych Affect: normal affect Assessment and Plan Assessment and Plan (1) Hx of colonic polyps: ?Status:?Acute ? ? ? Orders: Orders Colonoscopy Today ? ? Plan Patient hold his Coumadin for 5 days prior to procedure.? Discussed with patient that if numbers father did have colon cancer he was in his early 70s when diagnosed so this would not fit for a family history due to his age. I have discussed the above with the patient. I have offered the patient colonoscopy for evaluation. I have explained the risks/benefits of the procedure and described the procedure.? I have discussed the risks with the patient, including but not limited to:? infection, bleeding, perforation of the GI tract requiring emergency surgery, inability to complete the procedure, injury to any internal organs, complications of anesthesia, etc. - the patient understands and agrees to proceed. I have answered all the patient's questions to the patient's satisfaction and the patient has no further questions. The patient has been given instructions for the colon cleansing preparation.? 1 day of clears, MiraLAX Dulcolax split prep. Yvonne Tamayo M.D. Pager: [phone] [facility] [address] [place] [address], [address] [place] [address] Office: [phone] Coding Level of Care Code Off vis,new,level 3 Diagnoses Hx of colonic polyps? Z86.010 05/11/22 1237 <Electronically signed by Yvonne Tamayo MD> Date Yvonne Tamayo MD
--- NOTE | 2022-05-24 09:30 | COLBX_PTH ---
PATIENT: ALFIE BACON LOC: EN U#:[id number] AGE/SX: 56/M ROOM: RE05/24/[address]: Dr. Yvonne Tamayo MD : 1965 BED: DIS: 05/24/2022 SPEC #: [id number] RECD: 05/24/22 11:35 STATUS: EVETTE ANTOINE #: [id number] ARNOLDO: 05/24/22 09:[address]: Yvonne Tamayo DEPT: SURGICAL PATHOLOGY RECD BY: William Thompson ENTERED: 05/24/22 13:54 SP TYPE: COLON BX OTHR DR: Dr. Margot Mai MD Tissues: A - Transverse colon B - Descending colon Procedures: Surgery Specimen Level IV HEADER OPERATION: Colonoscopy (MAC), polypectomy PRE-OP DIAGNOSIS: History of colonic polyps TISSUE SUBMITTED: A ? Transverse polyp, B ? Descending polyps x2 MICROSCOPIC DIAGNOSIS A. Transverse colon polyp, polypectomy: Fragments of tubular adenoma. B. Descending colon polyps x2, polypectomy: Fragments of tubular adenoma. SJ:ta 05/25/2022 MICROSCOPIC DESCRIPTION Slides are reviewed. GROSS DESCRIPTION A - Received in fixative is one container labeled with the patient's name and designated transverse polyp. The specimen consists of multiple irregular fragments of light keller soft tissue that in aggregate measure 1 x 0.6 x 0.1 cm. The specimen is totally submitted in one cassette. B - Received in fixative is one container labeled with the patient's name and designated descending polyps. The specimen consists of two irregular fragments of light keller soft tissue that in aggregate measure 1 x 0.5 x 0.1 cm. The specimen is totally submitted in one cassette. / AM:ta 05/24/2022 TC:1 CPT: 57708 x2
[2022-05-24 10:45] LABS: Bedside Glucose 255 mg/dL (74-106)
--- NOTE | 2022-05-24 11:30 | OP.COLON_ITS ---
Patient Name: Pedro Karimi Procedure Date: 05/24/2022 10:24 AM Date of : 1965 Age: 56 Procedure: Colonoscopy Indications: High risk colon cancer surveillance: Personal history of colonic polyps Providers: Yvonne Tamayo MD Referring MD: Yvonne Tamayo MD Medicines: Monitored Anesthesia Care Patient Profile: This is a 56 year old male. Last Colonoscopy: 7 years ago. Complications: No immediate complications. Procedure: Pre-Anesthesia Assessment: - Prior to the procedure, a History and Physical was performed, and patient medications and allergies were reviewed. The patient's tolerance of previous anesthesia was also reviewed. The risks and benefits of the procedure and the sedation options and risks were discussed with the patient. All questions were answered, and informed consent was obtained. Prior Anticoagulants: The patient has taken Coumadin (warfarin), last dose was 5 days prior to procedure. ASA Grade Assessment: Per anesthesia. After reviewing the risks and benefits, the patient was deemed in satisfactory condition to undergo the procedure. After I obtained informed consent, the scope was passed under direct vision. Throughout the procedure, the patient's blood pressure, pulse, and oxygen saturations were monitored continuously. The pediatric colonoscope was introduced through the anus and advanced to the cecum, identified by the appendiceal orifice, ileocecal valve and palpation. The colonoscopy was performed without difficulty. The patient tolerated the procedure well. The quality of the bowel preparation was good. Scope In: 10:27:17 AM Scope Withdrawal Time 0 hours 38 minutes 31 seconds Scope Out: 11:18:20 AM Total Procedure Duration Time 0 hours 51 minutes 3 seconds Findings: The perianal and digital rectal examinations were normal. Three semi-pedunculated polyps were found in the descending colon, transverse colon and ascending colon. The polyps were 3 to 5 mm in size. These polyps were removed with a hot snare. Resection and retrieval were complete. Two semi-pedunculated polyps were found in the sigmoid colon. The polyps were 3 to 5 mm in size. These polyps were removed with a hot snare. Resection was complete, but the polyp tissue was not retrieved. Scattered small-mouthed diverticula were found in the entire colon. The exam was otherwise without abnormality on direct and retroflexion views. Impression: - Three 3 to 5 mm polyps in the descending colon, in the transverse colon and in the ascending colon, removed with a hot snare. Resected and retrieved. - Two 3 to 5 mm polyps in the sigmoid colon, removed with a hot snare. Complete resection. Polyp tissue not retrieved. - Diverticulosis in the entire examined colon. - The examination was otherwise normal on direct and retroflexion views. Recommendation: - Discharge patient to home. - Resume previous diet. - Continue present medications. - Await pathology results. - Repeat colonoscopy in 2 years for surveillance based on pathology results. Procedure Code(s): --- Professional --- 45314, PT, Colonoscopy, flexible; with removal of tumor(s), polyp(s), or other lesion(s) by snare technique Diagnosis Code(s): --- Professional --- Z86.010, Personal history of colonic polyps D12.4, Benign neoplasm of descending colon D12.3, Benign neoplasm of transverse colon (hepatic flexure or splenic flexure) D12.2, Benign neoplasm of ascending colon D12.5, Benign neoplasm of sigmoid colon K57.30, Diverticulosis of large intestine without perforation or abscess without bleeding CPT copyright 2017 [employer]. All rights reserved. The codes documented in this report are preliminary and upon medical biller coder review may be revised to meet current compliance requirements. MD Yvonne Collins MD 05/24/2022 11:30:05 AM This report has been signed electronically. Number of Addenda: 0 Note Initiated On: 05/24/2022 10:24 AM
--- NOTE | 2022-05-24 11:31 | OP.CCLET_ITS ---
05/24/2022 Margot Mai [place] [id number] [place] [address] Re : Colonoscopy procedure for Pedro Karimi Dear Dr. Mai This procedure was performed on Tuesday, May 24, 2022. My impressions and recommendations are as follows: Impressions : - Three 3 to 5 mm polyps in the descending colon, in the transverse colon and in the ascending colon, removed with a hot snare. Resected and retrieved. - Two 3 to 5 mm polyps in the sigmoid colon, removed with a hot snare. Complete resection. Polyp tissue not retrieved. - Diverticulosis in the entire examined colon. - The examination was otherwise normal on direct and retroflexion views. Recommendations : - Discharge patient to home. - Resume previous diet. - Continue present medications. - Await pathology results. - Repeat colonoscopy in 2 years for surveillance based on pathology results. My findings are described in the full procedure note, which is enclosed. If I can be of further assistance, please feel free to contact me at Doctor phone number(s): , Work: . Sincerely, MD Yvonne Collins MD 05/24/2022 11:30:05 AM This report has been signed electronically.
== END 2022-05-24 12:07 | disposition home or self-care (01) ==
LOC: EN 08:11 → AC 08:13
PROVIDERS: PCP Family Medicine; Referring Provider Surgery; Visit Provider Surgery
PROC: 0DJD8ZZ Inspection of Lower Intestinal Tract, Via Natural or Artificial Opening Endoscopic (ICD-10-PCS; CPT 45378; principal; 2022-05-24 09:25)
DX: Z12.11 Encounter for screening for malignant neoplasm of colon (principal); J44.9 Chronic obstructive pulmonary disease, unspecified; I48.91 Unspecified atrial fibrillation; K57.30 Diverticulosis of large intestine without perforation or abscess without bleeding; Z87.891 Personal history of nicotine dependence; Z90.49 Acquired absence of other specified parts of digestive tract; Z86.010 Personal history of colon polyps; D12.4 Benign neoplasm of descending colon; D12.5 Benign neoplasm of sigmoid colon; D12.3 Benign neoplasm of transverse colon; I10 Essential (primary) 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; G47.33 Obstructive sleep apnea (adult) (pediatric)
CPT/HCPCS: 45385; 82962; 88305; 93005; J7120; J2405

== ENCOUNTER 2022-06-13 10:00 | Outpatient (RCR) | payer MEDICAID, SELFPAY ==
[2022-06-02 11:36] LABS: International Normalized Ratio 1.5; Prothrombin Time (Protime)PT. 17.5 SECONDS (11.7-14.9)
[2022-06-09 11:04] LABS: International Normalized Ratio 1.8; Prothrombin Time (Protime)PT. 20.4 SECONDS (11.7-14.9)
[2022-06-13 11:18] LABS: Prothrombin Time (Protime)PT. 22.5 SECONDS (11.7-14.9)
== END 2022-06-13 12:00 | disposition home or self-care (01) ==
LOC: LAB 10:00
PROVIDERS: PCP Family Medicine; Referring Provider Physician Assistant Medical; Visit Provider Physician Assistant Medical
DX: I48.91 Unspecified atrial fibrillation (principal); Z79.01 Long term (current) use of anticoagulants
CPT/HCPCS: 36415; 85610

== ENCOUNTER 2022-07-10 10:26 | Outpatient (RCR) | payer MEDICAID, SELFPAY ==
[2022-06-20 11:32] LABS: International Normalized Ratio 1.9
[2022-06-27 11:38] LABS: International Normalized Ratio 1.9; Prothrombin Time (Protime)PT. 21.2 SECONDS (11.7-14.9)
[2022-07-10 11:06] LABS: International Normalized Ratio 2.3; Prothrombin Time (Protime)PT. 24.8 SECONDS (11.7-14.9)
== END 2022-07-10 18:00 | disposition home or self-care (01) ==
LOC: LAB 10:26
PROVIDERS: PCP Family Medicine; Referring Provider Physician Assistant Medical; Visit Provider Physician Assistant Medical
DX: I48.19 Other persistent atrial fibrillation (principal); Z79.01 Long term (current) use of anticoagulants
CPT/HCPCS: 36415; 85610

== ENCOUNTER 2022-08-08 10:41 | Outpatient (RCR) | payer MEDICAID, SELFPAY ==
[2022-07-17 10:24] LABS: International Normalized Ratio 2.1; Prothrombin Time (Protime)PT. 23.6 SECONDS (11.7-14.9)
[2022-07-24 14:29] LABS: International Normalized Ratio 2.1
[2022-08-01 14:05] LABS: International Normalized Ratio 2.2; Prothrombin Time (Protime)PT. 23.9 SECONDS (11.7-14.9)
[2022-08-08 11:36] LABS: International Normalized Ratio 2.3; Prothrombin Time (Protime)PT. 25.1 SECONDS (11.7-14.9)
== END 2022-08-11 23:04 | disposition home or self-care (01) ==
LOC: LAB 10:41
PROVIDERS: PCP Family Medicine; Referring Provider Physician Assistant Medical; Visit Provider Physician Assistant Medical
DX: I48.19 Other persistent atrial fibrillation (principal); Z79.01 Long term (current) use of anticoagulants
CPT/HCPCS: 36415; 85610

== ENCOUNTER 2022-09-05 13:36 | Outpatient (RCR) | payer MEDICAID, SELFPAY ==
[2022-08-15 11:25] LABS: International Normalized Ratio 2.2; Prothrombin Time (Protime)PT. 23.8 SECONDS (11.7-14.9)
[2022-08-22 13:03] LABS: International Normalized Ratio 2.2; Prothrombin Time (Protime)PT. 24.4 SECONDS (11.7-14.9)
[2022-08-29 12:41] LABS: Prothrombin Time (Protime)PT. 22.6 SECONDS (11.7-14.9)
[2022-09-05 16:16] LABS: International Normalized Ratio 2.7
== END 2022-09-10 01:32 | disposition home or self-care (01) ==
LOC: LAB 13:36
PROVIDERS: PCP Family Medicine; Referring Provider Physician Assistant Medical; Visit Provider Physician Assistant Medical
DX: I48.19 Other persistent atrial fibrillation (principal); Z79.01 Long term (current) use of anticoagulants; I42.9 Cardiomyopathy, unspecified
CPT/HCPCS: 36415; 85610

== ENCOUNTER 2022-09-19 10:29 | Outpatient (RCR) | payer MEDICAID, SELFPAY ==
[2022-09-12 10:16] LABS: INR Fingerstick 2.4; Prothrombin Time Fingerstick 26.1 SEC (11.7-14.9)
[2022-09-19 10:36] LABS: Prothrombin Time Fingerstick 31.7 SEC (11.7-14.9)
== END 2022-10-11 18:00 | disposition home or self-care (01) ==
LOC: LAB 10:29
PROVIDERS: PCP Family Medicine; Referring Provider Physician Assistant Medical; Visit Provider Physician Assistant Medical
DX: I48.19 Other persistent atrial fibrillation (principal); Z79.01 Long term (current) use of anticoagulants; I42.9 Cardiomyopathy, unspecified
CPT/HCPCS: 36416; 85610

== ENCOUNTER 2022-10-20 11:29 | Outpatient (RCR) | payer MEDICAID, SELFPAY ==
[2022-10-20 11:41] LABS: INR Fingerstick 2.5; Prothrombin Time Fingerstick 27.2 SEC (11.7-14.9)
== END 2022-10-20 18:00 | disposition home or self-care (01) ==
LOC: LAB 11:29
PROVIDERS: PCP Family Medicine; Referring Provider Physician Assistant Medical; Visit Provider Physician Assistant Medical
DX: I48.19 Other persistent atrial fibrillation (principal); Z79.01 Long term (current) use of anticoagulants
CPT/HCPCS: 36416; 85610

== ENCOUNTER 2022-11-27 11:32 | Outpatient (RCR) | payer MEDICAID, SELFPAY ==
[2022-11-27 11:51] LABS: INR Fingerstick 2.5; Prothrombin Time Fingerstick 27.2 SEC (11.7-14.9)
== END 2022-12-11 18:00 | disposition home or self-care (01) ==
LOC: LAB 11:32
PROVIDERS: PCP Family Medicine; Referring Provider Physician Assistant Medical; Visit Provider Physician Assistant Medical
DX: I48.19 Other persistent atrial fibrillation (principal); Z79.01 Long term (current) use of anticoagulants; I42.9 Cardiomyopathy, unspecified
CPT/HCPCS: 36416; 85610

== ENCOUNTER 2023-01-13 11:32 | Outpatient (RCR) | payer MEDICAID, SELFPAY ==
[2023-01-13 11:40] LABS: Prothrombin Time Fingerstick 31.8 SEC (11.7-14.9)
== END 2023-01-13 18:00 | disposition home or self-care (01) ==
LOC: LAB 11:32
PROVIDERS: PCP Family Medicine; Referring Provider Physician Assistant Medical; Visit Provider Physician Assistant Medical
DX: I48.19 Other persistent atrial fibrillation (principal); Z79.01 Long term (current) use of anticoagulants
CPT/HCPCS: 36416; 85610

== ENCOUNTER 2023-02-17 10:08 | Outpatient (RCR) | payer MEDICAID, SELFPAY ==
[2023-02-17 10:19] LABS: INR Fingerstick 2.7; Prothrombin Time Fingerstick 28.7 SEC (11.7-14.9)
== END 2023-02-17 18:00 | disposition home or self-care (01) ==
LOC: LAB 10:08
PROVIDERS: PCP Family Medicine; Referring Provider Physician Assistant Medical; Visit Provider Physician Assistant Medical
DX: I48.19 Other persistent atrial fibrillation (principal); Z79.01 Long term (current) use of anticoagulants
CPT/HCPCS: 36416; 85610

== ENCOUNTER 2023-04-28 09:49 | Outpatient (RCR) | payer MEDICAID, SELFPAY ==
[2023-04-28 10:31] LABS: Absolute Neutrophil Count 3.5 X10^3/uL (2.0-7.7); Basophil# 0.04 X10^3/uL; Basophil% 0.7 % (0-1); Eosinophil# 0.16 X10^3/uL; Hematocrit 41.4 % (40-54); Hemoglobin 12.7 g/dL (13.0-16.5); Lymphocyte % 16.9 % (19-41); Mean Corp Hgb Conc 30.7 g/dL (32-36); Mean Corpuscular Hgb 25.4 pg (27.0-32.0); Mean Corpuscular Volume 82.8 fL (80-94); Mean Platelet Vol. 10.9 fl (6.2-12.0); Monocyte# 0.47 X10^3/uL; Monocyte% 8.8 % (0-10); NRBC Flagged by Analyzer 0 % (0-5); Neutrophil # 3.54 X10^3/uL (2.7-7.7); Neutrophil % 66.3 % (47-70); Platelet Count 210 K/mm3 (150-450); RBC Distribution Width CV 15.2 % (11.6-14.6); RBC Distribution Width SD 45.8 fl (35.1-43.9); White Blood Count 5.3 K/mm3 (4.4-11.0)
[2023-04-28 10:51] LABS: International Normalized Ratio 3.2; Prothrombin Time (Protime)PT. 33.1 SECONDS (11.7-14.9)
[2023-04-28 10:59] LABS: ALB/GLOB Ratio 0.7 RATIO (0.9-2.4); AST(SGOT) 15 U/L (15-37); Alanine Aminotransfer ALT/SGPT 25 U/L (16-61); Albumin, Serum 3.2 g/dL (3.2-5.0); Alkaline Phosphatase 87 U/L (45-117); Anion Gap 2 (5-15); BUN 20 mg/dL (7-18); BUN/Creat Ratio 21.4 RATIO (10-20); Calcium,Total 9.1 mg/dL (8.5-10.1); Chloride 104 mmol/L (98-107); Cholesterol 148 mg/dL (200); Creatinine, Serum 0.93 mg/dL (0.70-1.30); EST Glomerular Filtration Rate 89 mL/min (>60); Est Glom Filt Rate - Afr Amer 107 mL/min (>60); Globulin 4.3 g/dL (2.2-4.2); Glucose 262 mg/dL (74-106); High Density Lipoprotein 49 mg/dL; Potassium 4.5 mmol/L (3.5-5.1); Protein, Total 7.5 g/dL (6.4-8.2); Sodium Level 135 mmol/L (136-145); Triglycerides 138 mg/dL; Very Low Density Lipoprotein 28 mg/dL (5-40)
== END 2023-05-13 18:00 | disposition home or self-care (01) ==
LOC: LAB 09:49
PROVIDERS: PCP Family Medicine; Referring Provider Physician Assistant Medical; Visit Provider Physician Assistant Medical
DX: I48.19 Other persistent atrial fibrillation (principal); Z79.01 Long term (current) use of anticoagulants; E11.65 Type 2 diabetes mellitus with hyperglycemia
CPT/HCPCS: 36415; 80053; 80061; 85025; 85610

== ENCOUNTER → 2023-07-26 | Outpatient (CLI) | payer MEDICAID, SELFPAY ==
--- OUTSIDE RECORDS SUMMARY | 2023-07-26 12:14 | XMS RPT_ITS | CCD ---
Author Name Unknown Address [address] [place] [address] Organization [facility] Care Team Providers Care Plastic Mould Maker Name Role Phone Unavailable Primary Care Provider Unavailabl e Angeline, Kewanna S Unavailable Margot Mai Primary Care Provider Angeline, Kewanna S Unavailable Margot Mai Primary Care Provider Angeline, Lazaro S Unavailable Margot Mai MD Primary Care Provider Angeline, Kewanna S Unavailable Angeline, Kewanna S Unavailable SOBEIDA MARGOT E Primary Care Unavailable KENY PENA Attending Unavailable MIEDEL, MARGOT E Primary Care Unavailable LAMAR BAZZI Admitting Unavailable SCHWLAMAR AYALA Attending Unavailable MIEDVIDYA, MARGOT E Primary Care Unavailable LAMAR BAZZI Referring Unavailable LAMAR BAZZI Attending Unavailable LAMAR BAZZI Admitting Unavailable MIEDEL, MARGOT E Primary Care Unavailable KENY PENA Attending Unavailable BEENAEDVIDYA, MARGOT E Primary Care Unavailable LAMAR BAZZI Referring Unavailable KENY PENA Attending Unavailable LAMAR BAZZI Referring Unavailable MIEDVIDYA, MARGOT E Primary Care Unavailable Angeline DOWD Kewanna S Unavailable SOBEIDA MARGOT E Primary Care Unavailable LUCAS BLANC Attending Unavailable LUCAS BLANC Referring Unavailable MIEDVIDYA, MARGOT E Primary Care Unavailable MIEDEL, MARGOT E Referring Unavailable MIEDEL, MARGOT E Primary Care Unavailable TESTRAKE, LUCAS Referring Unavailable MIEDEL, MARGOT E Primary Care Unavailable TESTRAKE, LUCAS Attending Unavailable MIEDEL, MARGOT E Primary Care Unavailable TESTRAKE, LUCAS Referring Unavailable MIEDEL, MARGOT E Primary Care Unavailable TESTRAKE, LUCAS Referring Unavailable TESTRAKE, LUCAS Attending Unavailable TESTRAKE, LUCAS Referring Unavailable TESTRAKE, LUCAS Attending Unavailable MIEDEL, MARGOT E Primary Care Unavailable KENY PENA Referring Unavailable MIEDEL, MARGOT E Primary Care Unavailable Allergies Allergy Classification Reported Allergen(s) Allergy Type Date of Onset Reaction(s) Facility (20 sources) Penicillins; Translations: [PENICILLINS] Propensity to adverse reactions 06-12-2008 Rash [facility] Medications Current Medications Medication Drug Class(es) Dates Sig (Normalized) Sig (Original) perflutren lipid microspheres 1.3 mL in NaCl (PF) 0.9% 10 mL injection (DEFINITY) (7 sources) Start: 12-19-2022 End: 03-19-2024 perflutren lipid microspheres 1.3 mL in NaCl (PF) 0.9% 10 mL injection (DEFINITY) Completed/Discontinued Medications Medication Drug Class(es) Dates Sig (Normalized) Sig (Original) [id number] 200 actuat albuterol 0.09 mg/actuat metered dose inhaler (13 sources) beta2-Adrenergic Agonist Start: 08-14-2021 albuterol HFA (PROVENTIL HFA, VENTOLIN HFA) 90 mcg/actuation inhaler Inhale as instructed. 0 08/14/2021 Active Problems Active Problems Problem Classification Problem Date Documented Da te Episodic/Chronic Acquired foot deformities (1 source) Hallux valgus; Translations: [Hallux valgus (acquired), left foot] 07-12-2023 Chronic Cardiac dysrhythmias (20 sources) Persistent atrial fibrillation; Translations: [Other persistent atrial fibrillation] Onset: 12-31-2021 Chronic Chronic ulcer of skin (2 sources) Non-pressure chronic ulcer of other part of left foot with fat layer exposed; Translations: [Ulcer of other part of foot] 07-12-2023 Chronic Congestive heart failure; nonhypertensive (20 sources) Chronic systolic heart failure; Translations: [Chronic systolic (congestive) heart failure] Onset: 12-31-2021 Chronic Diabetes mellitus with complications (20 sources) Type II diabetes mellitus uncontrolled; Translations: [Type II diabetes mellitus, uncontrolled] Onset: 06-12-2008 07-03-2015 Chronic Essential 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 (20 sources) Essential 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; Translations: [Essential (primary) 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] Onset: 10-04-2021 02-28-2022 Chronic Mood disorders (20 sources) Depressive disorder; Translations: [Depressive disorder] Onset: 08-03-2012 07-16-2015 Chronic Mycoses (3 sources) Onychomycosis; Translations: [Tinea unguium] 12-28-2022 Episodic Other connective tissue disease (3 sources) Pain of toe of left foot; Translations: [Pain in left toe(s)] 12-28-2022 Episodic Other connective tissue disease (3 sources) Pain of toe of right foot; Translations: [Pain in right toe(s)] 12-28-2022 Episodic Other lower respiratory disease (3 sources) Dyspnea; Translations: [Dyspnea, unspecified] Episodic Other nutritional; endocrine; and metabolic disorders (20 sources) Body mass index 40+ - severely obese; Translations: [Morbid (severe) obesity due to excess calories] Onset: 09-29-2011 10-10-2017 Chronic Other nutritional; endocrine; and metabolic disorders (1 source) Morbid (severe) obesity due to excess calories; Translations: [Obesity, Class III, BMI 40-49.9 (morbid obesity) (FORM[facility]LY [facility])] Onset: 10-10-2017 Chronic Other skin disorders (1 source) Keratosis; Translations: [Epidermal thickening, unspecified] 12-28-2022 Episodic Callie-; endo-; and myocarditis; cardiomyopathy (except that caused by tuberculosis or sexually transmitted disease) (20 sources) Primary cardiomyopathy; Translations: [Cardiomyopathy, unspecified] Onset: 12-31-2021 Chronic Residual codes; unclassified (20 sources) Obstructive sleep apnea syndrome; Translations: [Obstructive sleep apnea (adult) (pediatric)] Onset: 06-12-2008 11-11-2013 Chronic Residual codes; unclassified (1 source) Obstructive sleep apnea (adult) (pediatric); Translations: [MARIELLA on CPAP] Onset: 11-11-2013 Chronic Substance-related disorders (1 source) Tobacco user; Translations: [Nicotine dependence, unspecified, uncomplicated] Onset: 05-17-2012 05-17-2012 Chronic Unclassified (2 sources) Other persistent atrial fibrillation; Translations: [Persistent atrial fibrillation (HCC)] Onset: 09-25-2022 Past or Other Problems Problem Classification Problem Date Documented Date Episodic/Chronic Genitourinary symptoms and ill-defined conditions (1 source) Proteinuria, unspecified; Translations: [Proteinuria, unspecified type] Onset: 10-27-2022 Episodic Other aftercare (20 sources) Long-term current use of anticoagulant; Translations: [intermodal dispatcher (current) use of anticoagulants] Onset: 12-31-2021 Episodic Other and unspecified benign neoplasm (20 sources) Benign neoplasm of colon; Translations: [Benign neoplasm of colon, unspecified] Onset: 06-12-2008 06-12-2008 Episodic Other circulatory disease (1 source) Other specified symptoms and signs involving the circulatory and respiratory systems; Translations: [Diminished pulses in lower extremity] Onset: 08-30-2022 Episodic Other diseases of veins and lymphatics (20 sources) Peripheral venous insufficiency; Translations: [Venous insufficiency (chronic) (peripheral)] Onset: 01-14-2015 01-14-2015 Episodic Other lower respiratory disease (1 source) Dyspnea, unspecified; Translations: [Dyspnea, unspecified type] Onset: 06-06-2022 Episodic Residual codes; unclassified (20 sources) Family history of cancer of colon; Translations: [Family history of malignant neoplasm of digestive organs] Onset: 10-03-2010 10-03-2010 Episodic Residual codes; unclassified (20 sources) Other specified personal risk factors, not elsewhere classified; Translations: [Other specified personal history presenting hazards to health] Onset: 12-31-2021 Episodic Residual codes; unclassified (20 sources) H/O cardiac surgery; Translations: [Other specified postprocedural states] Onset: 03-01-2022 03-02-2022 Episodic Residual codes; unclassified (1 source) Other specified postprocedural states; Translations: [Status post catheter ablation of atrial fibrillation] Onset: 03-02-2022 Episodic Results Test Name Value Interpretation Reference Range Facil ity Vital Signs Date Time Vital Sign Value Performing Clinician Alma funes 12-28-2022 08:45-0400 Body height 188 cm [employer] Work Phone: [facility] 12-28-2022 08:45-0400 Body weight 158.76 kg Lucas Blanc Work Phone: [facility] 12-19-2022 09:21-0400 Body height 188 cm Keny Catherine STAGE RIGGER.GRADER OPERATOR Work Phone: [facility] 12-19-2022 09:21-0400 Body weight 161.93 kg Keny Linardi STAGE RIGGER.GRADER OPERATOR Work Phone: [facility] 12-19-2022 09:21-0400 Diastolic blood pressure 73 mm[Hg] Keny Linardi STAGE RIGGER.GRADER OPERATOR Work Phone: [facility] 12-19-2022 09:21-0400 Heart rate 68 /min Keny Herrardi STAGE RIGGER.GRADER OPERATOR Work Phone: [facility] 12-19-2022 09:21-0400 SaO2% (BldA) [Mass fraction] 98 % Keny Linardi STAGE RIGGER.GRADER OPERATOR Work Phone: [facility] 12-19-2022 09:21-0400 Systolic blood pressure 104 mm[Hg] Keny Linardi STAGE RIGGER.GRADER OPERATOR Work Phone: [facility] 06-06-2022 13:23-0500 Body height 188 cm Keny Linardi STAGE RIGGER.GRADER OPERATOR Work Phone: [facility] 06-06-2022 13:23-0500 Body weight 154.22 kg Keny Linardi STAGE RIGGER.GRADER OPERATOR Work Phone: [facility] 06-06-2022 13:23-0500 Diastolic blood pressure 82 mm[Hg] Keny Linardi STAGE RIGGER.GRADER OPERATOR Work Phone: [facility] 06-06-2022 13:23-0500 Heart rate 131 /min Keny Herrardi STAGE RIGGER.GRADER OPERATOR Work Phone: [facility] 06-06-2022 13:23-0500 SaO2% (BldA) [Mass fraction] 98 % Keny Linardi STAGE RIGGER.GRADER OPERATOR Work Phone: [facility] 01-24-2023 13:23-0500 Systolic blood pressure 118 mm[Hg] Keny Pena STAGE RIGGER.GRADER OPERATOR Work Phone: [facility] 02-27-2022 10:30-0400 Body height 188 cm Keny Pena STAGE RIGGER.GRADER OPERATOR Work Phone: [facility] 02-27-2022 10:30-0400 Body weight 152.41 kg Keny Pena STAGE RIGGER.GRADER OPERATOR Work Phone: [facility] 02-27-2022 10:30-0400 Diastolic blood pressure 75 mm[Hg] Keny Pena STAGE RIGGER.GRADER OPERATOR Work Phone: [facility] 02-27-2022 10:30-0400 Heart rate 123 /min Keny Pena STAGE RIGGER.GRADER OPERATOR Work Phone: [facility] 02-27-2022 10:30-0400 Respiratory rate 18 /min Keny Pena STAGE RIGGER.GRADER OPERATOR Work Phone: [facility] 02-27-2022 10:30-0400 SaO2% (BldA) [Mass fraction] 97 % Keny Pena STAGE RIGGER.GRADER OPERATOR Work Phone: [facility] 02-27-2022 10:30-0400 Systolic blood pressure 105 mm[Hg] Keny Pena STAGE RIGGER.GRADER OPERATOR Work Phone: [facility] 01-02-2022 09:02-0400 Body height 188 cm Lamar Bazzi MD Work Phone: [facility] 01-02-2022 09:02-0400 Body weight 152.41 kg Lamar Bazzi MD Work Phone: [facility] 01-02-2022 09:02-0400 Diastolic blood pressure 80 mm[Hg] Lamar Bazzi MD Work Phone: [facility] 01-02-2022 09:02-0400 Heart rate 65 /min Lamar Bazzi MD Work Phone: [facility] 01-02-2022 09:02-0400 Respiratory rate 18 /min Lamar Bazzi MD Work Phone: [facility] 01-02-2022 [id number] SaO2% (BldA) [Mass fraction] 96 % Lamar Bzazi MD Work Phone: [facility] 01-02-2022 09:02040 Systolic blood pressure 116 mm[Hg] Lamar Bazzi MD Work Phone: [facility] Encounters Encounter Date Encounter Type Care Provider Facility Start: 07-12-2023 End: 07-12-2023 ambulatory MARGOT PERES Facility:[facility] Start: 07-12-2023 End: 07-12-2023 Subsequent hospital visit by physician Xr [facility] Teagan Morocho Work Phone: Radiology Procedures Date Procedure Procedure Detail Performing Clinician Start: 12-19-2022 Ecg routine ecg w/le ast 12 lds w/i&r Keny Linardi STAGE RIGGER.GRADER OPERATOR Work Phone: Start: 06-06-2022 Ecg routine ecg w/le ast 12 lds w/i&r Keny Linjed STAGE RIGGER.GRADER OPERATOR Work Phone: Start: 06-06-2022 Echo tthrc r-t 2d w/wom-mode compl spec&colr d Lamar Bazzi MD Work Phone: Start: 02-27-2022 Ecg routine ecg w/le ast 12 lds w/i&r Keny Linjed STAGE RIGGER.GRADER OPERATOR Work Phone: Start: 01-02-2022 Ecg routine ecg w/le ast 12 lds w/i&r Lamar Bazzi MD Work Phone: Start: 10-29-2015 Colonoscopy [facility] Work Phone: Plan of Treatment Date Care Activity Detail Author Start: 12-29-2023 3 comp foot exam completed DIABETIC FOOT EXAM [facility] Start: 12-29-2023 Diabetic foot examination Diabetic Foot Exam [facility] Start: 12-20-2023 BP CONTROLLED (<130/80) BP CONTROLLED (<130/80) [facility] Start: 10-28-2023 Hepatitis B screening URINE ALBUMIN:CREATININE RATIO [facility] Start: 10-28-2023 Hepatitis B surface antibody level LDL CHOLESTEROL [facility] Start: 02-27-2023 BP CONTROLLED (<130/80) BP CONTROLLED (<130/80) [facility] Start: 01-12-2023 Influenza vaccination [facility] Start: 06-01-2022 End: 03-08-2023 Echocardiography ECHO Cardiology Routine Dyspnea, unspecified type Persistent atrial fibrillation (HCC) Expected: 06/01/2022, Expires: 03/08/2023 [facility] Work Phone: Immunizations Immunization Date Immunization Notes Care Provider Fa rafiq 02-03-2022 influenza, injectabl e, quadrivalent, preservative free Lamar Bazzi MD Work Phone: [facility] Work Phone: 02-03-2022 influenza virus vacc ine, unspecified formulation Lucas Testge Work Phone: [facility] 04-18-2021 influenza, seasonal, injectable Keny Pena APRN.GRADER OPERATOR Work Phone: [facility] Work Phone: 05-09-2017 Influenza, injectabl e, Madin [place] Canine Kidney, preservative free, quadrivalent Lamar Bazzi MD Work Phone: [facility] Work Phone: 03-07-2016 influenza, injectabl e, quadrivalent, preservative free Lamar Bazzi MD Work Phone: [facility] Work Phone: 02-16-2016 influenza, seasonal, injectable [facility] Work Phone: [facility] 03-18-2015 influenza, seasonal, injectable, preservative free Lamar Bazzi MD Work Phone: [facility] Work Phone: 01-12-2015 influenza, seasonal, injectable Ag Card Work Phone: [facility] Work Phone: 02-15-2012 influenza virus vacc ine, unspecified formulation Ag Card Work Phone: [facility] Work Phone: 02-03-2011 influenza virus vacc ine, unspecified formulation Ag Card Work Phone: [facility] Work Phone: 03-26-2009 pneumococcal polysaccharide vaccine, 23 valent Ag Card Work Phone: [facility] 09-18-2008 tetanus toxoid, redu nguyễn diphtheria toxoid, and acellular pertussis vaccine, adsorbed Ag Card Work Phone: [facility] Payers Date Payer Category Payer Private Health Insurance HU[employer]NA [employer] MEDICAID [facility] [id number] 2022-Present [address] [address] [place] [address] Medicaid [id number] 2021 Medicaid [id number] 2021 Medicaid [id number] 2017 Unknown [employer] [id number] 2017-Present [phone] [address] [place] [address] Indemnity [id number] Social History Date Type Detail Facility Start: 11-28-2021 End: 01-02-2022 Tobacco smoking status NHIS Ex-smoker [facility] Start: 05-14-1974 End: 08-11-2021 History of tobacco use Cigarette Smoker [facility] Start: 11-28-2021 End: 07-12-2023 Cigarettes smoked current (pack per day) - Reported 1 [facility] Start: 11-28-2021 End: 01-02-2022 Tobacco use and exposure Smokeless tobacco non-user [facility] Start: 11-28-2021 End: 07-12-2023 Alcohol intake Current drinker of alcohol (finding) [facility] Start: 06-12-2008 History SDOH Alcohol Comment on occasion. [facility] Start: 03-24-2016 Tobacco Comment Trying to quit [facility] Start: 1965 Sex Assigned At Not on file [facility] Start: 05-14-1974 End: 08-11-2021 History of tobacco use Current smoker [facility] Work Phone: Start: 12-23-2021 End: 03-01-2022 Exposure to SARS-CoV-2 (event) Not sure [facility] Start: 12-19-2022 End: 07-12-2023 Tobacco use panel [facility] Medical Equipment Procedure Code Equipment Code Equipment Origin al Text Equipment Identifier Dates [id number] Implant - [id number] Start: 05-31-2011 Clinical Notes 05-29-2011 to 07-12-2023 Andres Strong RT(R) - 07/12/2023 8:50 AM Kym Fragoso RN - 07/12/2023 8:35 AM ESTTestLucas carolina - 07/12/2023 8:06 AM Kym Fragoso RN - 07/12/2023 8:01 AM ESTPatient Instructions Note Date & Type Note Facility 07-12-2023 Note HNO ID: [id number] Author: ANDRES STRONG RT(Jacki) Service: ? Author Type: Technologist Type: Progress Notes Filed: 07/12/2023 09:37 Note Text: Radiology Service Progress Note PATIENT NAME: Alfie Karimi DATE OF SERVICE: July 12, 2023 TIME: 9:37 AM PATIENT IDENTITY VERIFICATION COMPLETED USING TWO (2) IDENTIFIERS: Name and Date of confirmed by patient verbally. FALL SCREENING: Has the patient had 2 falls in the last year or 1 fall with injury or currently using an Ambulatory Assistive Device (Walker, Cane, Wheelchair, Crutches, etc.)? Yes, Patient High Risk for Falls What interventions were put in place to prevent falls during this visit? Increased Observations by Caregivers PATIENT GENDER DATA: Male PATIENT RELEVANT IMPLANT DATA REVIEWED: Not Applicable PATIENT PRESENTS WITH AN IMPLANTABLE OR ATTACHED TEAM MEMBER: Yes [employer] RADIOLOGY DEPARTMENT: General X-ray: Exam(s) Completed: Lower Extremity X-Ray(s): Foot, Left PERIPHERAL IV DATA: Not applicable SIGNED BY: RT Richard(R) July 12, 2023 9:37 AM [facility] 07-12-2023 Note HNO ID: [id number] Author: KYM SHERMAN RN Service: ? Author Type: Registered Nurse Type: Progress Notes Filed: 07/12/2023 08:45 Note Text: Aquacel applied to ulcer of L foot. Per Dr. Blanc, Alfie was provided with a post op shoe and peg assisted offloading insert, size L, and instructed/educated in its application, wear, and care. All questions were answered, and patient was able to demonstrate competence with the necessary skills to utilize the above equipment. Kym Sherman RN [facility] 07-12-2023 Note HNO ID: [id number] Author: LUCAS BLANC, ? Service: ? Author Type: Physician Type: Progress Notes Filed: 07/12/2023 08:45 Note Text: Last time saw pcp: not in chart Subjective: This 57 year old male presents to clinic for diabetic foot check. Patient has the following complaints: painful toenails. He complains of painful incurvated toenails. He would like to have removed but his A1c is 8.9. he also reports some skin lesion to left foot. He noticed a few weeks ago. It does cause him pain. Patient does complain of numbness to his foot. Patient -pain in legs when walking. No other pedal complaints at this time. No change in medications or medical history since last visit. PAIN EVALUATION No data found in the last 1 encounters. Hemoglobin A1C (%) Date Value 03/10/2017 10.2 11/25/2016 7.3 08/12/2016 10.3 03/18/2016 10.9 07/10/2015 9.6 PCP: Margot Mai MD PAST MEDICAL HISTORY Diagnosis Date Anticoagulant long-term use indication: stroke prevention atrial fibrillation At risk for stroke [id number] = 2 (CHF, DM) Atypical atrial flutter (HCC) 06/16/2022 Benign neoplasm of colon 06/12/2008 Tubular adenoma. Chronic fatigue syndrome Chronic HFrEF (heart failure with reduced ejection fraction) (HCC) Depressive disorder, not elsewhere classified 08/03/2012 YOUNG (dyspnea on exertion) Encounter for current long-term use of anticoagulants HTN (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) patient does not think he has HTN Morbid obesity due to excess calories (HCC) MARIELLA on CPAP 06/12/20082000. On CPAP. Persistent atrial fibrillation (HCC) symptomatic, possibly contributing to dilated cardiomyopathy; s/p catheter ablation 03/01/2022 Primary cardiomyopathy (HCC) Status post catheter ablation of atrial fibrillation balloon catheter cryoablation/PVAI for atrial fibrillation 03/01/2022; [facility] Dr. Bazzi Type II or unspecified type diabetes mellitus without mention of complication, uncontrolled 06/12/2008 Current Outpatient Medications Medication Sig dilTIAZem CD (CARDIZEM CD, CARTIA XT) 120 mg 24 hr capsule Take 120 mg by mouth once daily. FREESTYLE JACEK 2 READER USE DIRECTED TO CHECK AT LEAST 4 TIMES DAILY FREESTYLE JACEK 2 SENSOR kit USE 1 SENSOR EVERY 14 DAYS. warfarin (COUMADIN) 4 mg tablet Take 8 mg by mouth once daily. insulin glargine (LANTUS SOLOSTAR, BASAGLAR KWIKPEN) 100 unit/mL (3 mL) Inject 50 Units subcutaneously. Once daily insulin lispro (HUMALOG KWIKPEN) 100 unit/mL INJECT 5 TO 15 UNITS SUBCUTANEOUSLY WITH MEALS pen needle, diabetic 31 gauge x 15/64 ndle USE 4 NEEDLES DAILY warfarin (COUMADIN) 2 mg tablet 10 mg. warfarin (COUMADIN) 5 mg tablet Take 10 mg by mouth once daily. Currently as of 09/27/2022 he takes 10 mg daily except Wed and Terri takes 12 mg carvedilol (COREG) 25 mg tablet Take 25 mg by mouth twice daily with meals. furosemide (LASIX) 40 mg tablet Take 80 mg by mouth once daily. spironolactone (ALDACTONE) 25 mg tablet Take 25 mg by mouth once daily. potassium chloride (K-TAB) 10 mEq tablet Take 10 mEq by mouth once daily. buPROPion SR (ZYBAN SR; WELLBUTRIN SR) 150 mg 12 hr tablet Take 1 tablet by mouth twice daily. lisinopril (ZESTRIL) 2.5 mg tablet Take 1 tablet by mouth once daily. metFORMIN (GLUCOPHAGE) 1,000 mg tablet Take 1 tablet by mouth twice daily with meals. Current Facility-Administered Medications Medication Dose Route Frequency perflutren lipid microspheres 1.3 mL in NaCl (PF) 0.9% 10 mL injection (DEFINITY) INTRAVENOUS DIRECTED PRN sodium chloride 0.9 % (flush) 10 mL (BD POSIFLUSH) 10 mL INTRAVENOUS DIRECTED PRN ALLERGIES Allergen Reactions Penicillins Rash Had reaction as a baby PAST SURGICAL HISTORY Procedure Laterality Date AFIB ABLATION/PULM VEIN ISOLATION 03/01/2022 balloon catheter cryoablation/PVAI for atrial fibrillation; [facility] Dr. Bazzi CARDIOVERSION, ELECTIVE, ELECTRICAL 10/27/2021 unsuccessful x2 [facility] CARDIOVERSION, ELECTIVE, ELECTRICAL 09/30/2021 [facility] - Unsuccessful CARDIOVERSION, ELECTIVE, ELECTRICAL 09/27/2022 COLONOSCOPY FLX DX W/COLLJ SPEC WHEN PFRMD 2000, 2004 Colonoscopy COLONOSCOPY FLX DX W/COLLJ SPEC WHEN PFRMD 10/14/2010 Colonoscopy/repeat in 10/2015 COLONOSCOPY FLX DX W/COLLJ SPEC WHEN PFRMD 10/29/2015 CORRECT BUNION,SIMPLE 05/14/[address] Velasquez right CORRECT BUNION,SIMPLE 05/31/2011 Bunion, Left ECHO 08/15/2021 EF 15%- [facility] ECHOCARDIOGRAM 01/20/2022 [facility]; see scanned documents LEFT HEART CATH,PERCUTANEOUS 11/25/2021 no significant CAD; LVEF 20%; [facility] REM LESIO TRUNK,ARM,LEG 1.1 -2.0CM 08/08/2008 Exc. ruptured emilie cyst right upper chest REPAIR INCISIONAL HERNIA,REDUCIBLE RPR UMBILICAL HRNA 5 YRS/> REDUCIBLE 05/14/2000 Hernia repair, umbilical >5yr FAMILY HISTORY Problem Relation Age of Onset Stroke Mother COPD Mother Colon Cancer Father Hea (more content not included)... [facility] 07-12-2023 Note HNO ID: [id number] Author: KYM SHERMAN RN Service: ? Author Type: Registered Nurse Type: Progress Notes Filed: 07/12/2023 08:45 Note Text: Patient presents with: Left Foot - Established Patient, Diabetic Foot Care Right Foot - Established Patient, Diabetic Foot Care [facility] 07-12-2023 History of Presen t illness Narrative Radiology Service Progress Note PATIENT NAME: Alfie Karimi DATE OF SERVICE: July 12, 2023 TIME: 9:37 AM PATIENT IDENTITY VERIFICATION COMPLETED USING TWO (2) IDENTIFIERS: Name and Date of confirmed by patient verbally. FALL SCREENING: Has the patient had 2 falls in the last year or 1 fall with injury or currently using an Ambulatory Assistive Device (Walker, Cane, Wheelchair, Crutches, etc.)? Yes, Patient High Risk for Falls What interventions were put in place to prevent falls during this visit? Increased Observations by Caregivers PATIENT GENDER DATA: Male PATIENT RELEVANT IMPLANT DATA REVIEWED: Not Applicable PATIENT PRESENTS WITH AN IMPLANTABLE OR ATTACHED TEAM MEMBER: Yes [facility] RADIOLOGY DEPARTMENT: General X-ray: Exam(s) Completed: Lower Extremity X-Ray(s): Foot, Left PERIPHERAL IV DATA: Not applicable SIGNED BY: RT Richard(R) July 12, 2023 9:37 AM documented in this encounter [facility] 07-12-2023 History of Presen t illness Narrative Aquacel applied to ulcer of L foot. Per Dr. Blanc Alfie was provided with a post op shoe and peg assisted offloading insert, size L, and instructed/educated in its application, wear, and care. All questions were answered, and patient was able to demonstrate competence with the necessary skills to utilize the above equipment. Kym Sherman RN Last time saw pcp: not in chart Subjective: This 57 year old male presents to clinic for diabetic foot check. Patient has the following complaints: painful toenails. He complains of painful incurvated toenails. He would like to have removed but his A1c is 8.9. he also reports some skin lesion to left foot. He noticed a few weeks ago. It does cause him pain. Patient does complain of numbness to his foot. Patient -pain in legs when walking. No other pedal complaints at this time. No change in medications or medical history since last visit. PAIN EVALUATION No data found in the last 1 encounters. Hemoglobin A1C (%) Date Value 03/10/2017 10.2 11/25/2016 7.3 08/12/2016 10.3 03/18/2016 10.9 07/10/2015 9.6 PCP: Margot Mai MD PAST MEDICAL HISTORY Diagnosis Date Anticoagulant long-term use indication: stroke prevention atrial fibrillation At risk for stroke [id number] = 2 (CHF, DM) Atypical atrial flutter (HCC) 06/16/2022 Benign neoplasm of colon 06/12/2008 Tubular adenoma. Chronic fatigue syndrome Chronic HFrEF (heart failure with reduced ejection fraction) (HCC) Depressive disorder, not elsewhere classified 08/03/2012 YOUNG (dyspnea on exertion) Encounter for current long-term use of anticoagulants HTN (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) patient does not think he has HTN Morbid obesity due to excess calories (HCC) MARIELLA on CPAP 06/12/2008 2001. On CPAP. Persistent atrial fibrillation (HCC) symptomatic, possibly contributing to dilated cardiomyopathy; s/p catheter ablation 03/01/2022 Primary cardiomyopathy (HCC) Status post catheter ablation of atrial fibrillation balloon catheter cryoablation/PVAI for atrial fibrillation 03/01/2022; [facility] Dr. Bazzi Type II or unspecified type diabetes mellitus without mention of complication, uncontrolled 06/12/2008 Current Outpatient Medications Medication Sig dilTIAZem CD (CARDIZEM CD, CARTIA XT) 120 mg 24 hr capsule Take 120 mg by mouth once daily. FREESTYLE JACEK 2 READER USE DIRECTED TO CHECK AT LEAST 4 TIMES DAILY FREESTYLE JACEK 2 SENSOR kit USE 1 SENSOR EVERY 14 DAYS. warfarin (COUMADIN) 4 mg tablet Take 8 mg by mouth once daily. insulin glargine (LANTUS SOLOSTAR, BASAGLAR KWIKPEN) 100 unit/mL (3 mL) Inject 50 Units subcutaneously. Once daily insulin lispro (HUMALOG KWIKPEN) 100 unit/mL INJECT 5 TO 15 UNITS SUBCUTANEOUSLY WITH MEALS pen needle, diabetic 31 gauge x 15/64 ndle USE 4 NEEDLES DAILY warfarin (COUMADIN) 2 mg tablet 10 mg. warfarin (COUMADIN) 5 mg tablet Take 10 mg by mouth once daily. Currently as of 09/27/2022 he takes 10 mg daily except Wed and Terri takes 12 mg carvedilol (COREG) 25 mg tablet Take 25 mg by mouth twice daily with meals. furosemide (LASIX) 40 mg tablet Take 80 mg by mouth once daily. spironolactone (ALDACTONE) 25 mg tablet Take 25 mg by mouth once daily. potassium chloride (K-TAB) 10 mEq tablet Take 10 mEq by mouth once daily. buPROPion SR (ZYBAN SR; WELLBUTRIN SR) 150 mg 12 hr tablet Take 1 tablet by mouth twice daily. lisinopril (ZESTRIL) 2.5 mg tablet Take 1 tablet by mouth once daily. metFORMIN (GLUCOPHAGE) 1,000 mg tablet Take 1 tablet by mouth twice daily with meals. Current Facility-Administered Medications Medication Dose Route Frequency perflutren lipid microspheres 1.3 mL in NaCl (PF) 0.9% 10 mL injection (DEFINITY) INTRAVENOUS DIRECTED PRN sodium chloride 0.9 % (flush) 10 mL (BD POSIFLUSH) 10 mL INTRAVENOUS DIRECTED PRN ALLERGIES Allergen Reactions Penicillins Rash Had reaction as a baby PAST SURGICAL HISTORY Procedure Laterality Date AFIB ABLATION/PULM VEIN ISOLATION 03/01/2022 balloon catheter cryoablation/PVAI for atrial fibrillation; [facility] Dr. Bazzi CARDIOVERSION, ELECTIVE, ELECTRICAL 10/27/2021 unsuccessful x2 [facility] CARDIOVERSION, ELECTIVE, ELECTRICAL 09/30/2021 [facility] - Unsuccessful CARDIOVERSION, ELECTIVE, ELECTRICAL 09/27/2022 COLONOSCOPY FLX DX W/COLLJ SPEC WHEN PFRMD 2000, 2004 Colonoscopy COLONOSCOPY FLX DX W/COLLJ SPEC WHEN PFRMD 10/14/2010 Colonoscopy/repeat in 10/2015 COLONOSCOPY FLX DX W/COLLJ SPEC WHEN PFRMD 10/29/2015 CORRECT BUNION,SIMPLE 05/14/[address] Velasquez right CORRECT BUNION,SIMPLE 05/31/2011 Bunion, Left ECHO 08/15/2021 EF 15%- [facility] ECHOCARDIOGRAM 01/20/2022 [facility]; see scanned documents LEFT HEART CATH,PERCUTANEOUS 11/25/2021 no significant CAD; LVEF 20%; [facility] REM LESIO TRUNK,ARM,LEG 1.1 -2.0CM 08/08/2008 Exc. ruptured emilie cyst right upper chest REPAIR INCISIONAL HERNIA,REDUCIBLE RPR UMBILICAL HRNA 5 YRS/> REDUCIBLE 05/14/2000 Hernia repair, umbilical >5yr FAMILY HISTORY Problem Relation Age of Onset Stroke Mother COPD Mother Colon Cancer Father Heart Sister he's not sure, something involving an implant ? pacemaker No Known Problems Sister Alcohol abuse Brother Alcohol abuse Brother No Known Problems Brother Heart Failure Maternal Grandmother Diabetes Paternal Grandmother Social History Tobacco Use Smoking status: Former Packs/day: 1.00 Years: 47.00 Additional pack years: 0.00 Total pack years: 47.00 Types: Cigarettes Start date: 1974 Quit date: 08/11/2021 Years since quittin.9 Smokeless tobacco: Never Vaping Use Vaping Use: Never used Substance Use Topics Alcohol use: Yes Comment: on occasion. Drug use: No REVIEW OF SYSTEMS GENERAL: Negative for Malaise, significant weight loss, fever RESPIRATORY: Negative for cough, wheezing and shortness of breath CARDIOVASCULAR: Negative for chest pain, leg swelling and palpitations GI: Negative for abdominal discomfort, blood in stools or black stools and change in bowel habits : Negative for dysuria, frequency and incontinence MUSCULOSKELETAL: Negative for joint pain or swelling, back pain, and muscle pain. SKIN: Negative for lesions, rash, and itching. HEMATOLOGY/LYMPHOLOGY Negative for prolonged bleeding, bruising easily, and swollen nodes. ENDOCRINE: Negative for cold or heat intolerance, polyuria, polydipsia and goiter. NEURO: negative The remainder of the review of systems is noncontributory. Objective: Patient presents to clinic ambulating in [facility] Constitutional: Pt is a well developed 57 year old male who is alert, oriented, cooperative and in no apparent distress. Eyes: Following during examination. No redness or drainage. Respiratory: RR normal and nonlabored. Even breathing. No evidence of distress. Psychology: Patient is engaged during conversation. Normal affect and mood. Does not appear depressed or anxious. Vasc: DP and PT pulses are palpable bilateral. CFT is less than 5 seconds bilateral. Skin temperature is warm to warm proximal to distal bilateral. There is mild edema or varicosities noted. Hair growth present. Neuro: Protective sensation is intact to the foot and toes when tested with the 5.07 SWM bilateral. Vibratory sensation is decreased at the hallux bilateral. + Significant neurological defecits. Derm: Inspection and palpation performed. Nails 1-5 left and 2-5 right are painful, discolored-yellow, thick, crumbly, dystrophic and with subungal debris. Skin is of normal turgor and texture. Hyperkeratosis noted to left 2nd metatarsal with underlying 3 mm x 2 mm x 1 mm ulceration. Ulceration #1 Location: left 2nd metatarsal head Base: callus with underlying granular wound. Measurement: 3 mm x 2mm x 1 mm No signs of infection Ortho: Ankle joint DF is decreased with the knee extended and decreased with knee flexed. No pain or crepitus noted. STJ, MTJ ROM are full and free of pain or crepitus. Muscle strength is 5/5 for dorsiflexors, plantarflexors, inverters, everters. Digital deformities include bunion of left first ray. . Assessment: (E11.49) Other diabetic neurological complication associated with type 2 diabetes mellitus (HCC) (primary encounter diagnosis) (B35.1) Onychomycosis (M79.675) Pain in toe of left foot (M79.674) Pain in toe of right foot (M20.12) Hallux valgus of left foot (L97.522) Ulcer of toe of left foot, with fat layer exposed ([facility]) Plan: 1. Patient was seen and evaluated. 2. Patient was instructed on the continued importance of diabetic foot care along with proper diet and keeping their blood sugar under control to prevent complications. Instructions given both oral and written. 3. Discussed ulceration of left 2nd metatarsal. Sharp debridement of left foot ulceration was peformed thru subcutaneous tissue with 15 blade and tissue nippers. Will treat with aquacel followed by wearing surgical shoe with peg assisted offloading. Keeping pressure off of foot is essential in healing. Getting sugars better controlled is essential for healing. Xrays ordered. 4. Toenails 1-5 left and 2-5 right debrided. Could consider removal of toenail pending better control of sugars. 5. Diabetic shoes ordered. Patient will benefit from diabetic shoe due to neuorpathy now with history of ulceration. Lucas Blanc DPM Patient presents with: Left Foot - Established Patient, Diabetic Foot Care Right Foot - Established Patient, Diabetic Foot Care documented in this encounter [facility] 07-12-2023 Instructions Lucas Blanc - 07/12/2023 8:22 AM EST Cleanse wound daily with saline Apply aquacel to left foot wound daily Use surgical shoe with offloading insert F/u in 2 weeks Do not get foot wet until healed Diabetes Foot Care Instructions When you have diabetes, proper foot care is very important. Poor foot care may lead to amputation of a foot or leg. As a person with diabetes, you are more vulnerable to foot problems, because diabetes can damage your nerves and reduce blood flow to your feet. Here are some diabetes foot care tips to follow: Wash and Dry Your Feet Daily Use mild soaps Use warm water Pat your skin dry; do not rub. Thoroughly dry your feet. After washing, use lotion on your feet to prevent cracking. Do not put lotion between your toes. Examine Your Feet Each Day Check the tops and bottoms of your feet. Have someone else look at your feet if you cannot see them. Check for dry, cracked skin. Look for blisters, cuts, scratches, or other sores. Check for redness, increased warmth, or tenderness when touching any area of your feet. Check for ingrown toenails, corns, and calluses. If you get a blister or sore from your shoes, do not pop it. Apply a bandage and wear a different pair of shoes. Take Care of Your Toenails Cut toenails after bathing, when they are soft. Cut toenails straight across and smooth with a nail file. Avoid cutting into the corners of toes. Do not cut cuticles. If you have neuropathy (or decreased sensation in your feet) a terrazzo finisher should always cut your toenails. Be Careful When Exercising Walk and exercise in comfortable shoes. Do not exercise when you have open sores on your feet. Protect Your Feet With Shoes and Socks Never go barefoot. Always protect your feet by wearing shoes or hard-soled slippers or footwear. Avoid shoes with high heels and pointed toes. Avoid shoes that expose your toes or heels (such as open-toed shoes or sandals). These types of shoes increase your risk for injury and potential infections. Try on new footwear with the type of socks you usually wear. Do not wear new shoes for more than an hour at a time. Change your socks daily. Look and feel inside your shoes before putting them on to make sure there are no foreign objects or rough areas. Avoid tight socks. Wear natural-fiber socks (cotton, wool, or a cotton-wool blend). Wear special shoes if your health care provider recommends them. Wear shoes/boots that will protect your feet from various weather conditions (cold, moisture, etc.). Make sure your shoes fit properly. If you have neuropathy (nerve damage), you may not notice that your shoes are too tight. Perform the footwear test described below. Footwear Test Use this simple test to see if your shoes fit correctly: Stand on a piece of paper. (Make sure you are standing and not sitting, because your foot changes shape when you stand.) Trace the outline of your foot. Trace the outline of your shoe. Compare the tracings: Is the shoe too narrow? Is your foot crammed into the shoe? The shoe should be at least 1/2 inch longer than your longest toe and as wide as your foot. Proper Shoe Choices The following types of shoes are best for people with diabetes Closed toes and heels Leather uppers without a seam inside At least 1/2 inch extra space at the end of your longest toe Inside of shoe should be soft with no rough areas Outer sole should be made of stiff material Shoes should be at least as wide as your feet Tips for Foot Care in Diabetes Don't wait to treat a minor foot problem if you have diabetes. Follow your health care provider's guidelines and first aid guidelines. Report foot injuries and infections to your health care provider immediately. Check water temperature with your elbow, not your foot. Do not use a heating pad on your feet. Do not cross your legs. Do not self-treat your corns, calluses, or other foot problems. Go to your health care provider or terrazzo finisher to treat these conditions. documented in this encounter [facility] 04-09-2023 Note HNO ID: [id number] Author: Lucas Blanc Service: ? Author Type: Physician Type: Progress Notes Filed: 04/09/2023 9:29 AM Note Text: Last time saw pcp: not in chart Subjective: This 57 year old male presents to clinic for diabetic foot check. Patient has the following complaints: painful toenail. Patient admits to being diabetic for multiple years now. Patient -B/T/N in feet at this time. Patient -pain in legs when walking. No other pedal complaints at this time. No change in medications or medical history since last visit. PAIN EVALUATION No data found in the last 1 encounters. Hemoglobin A1C (%) Date Value 03/10/2017 10.2 11/25/2016 7.3 08/12/2016 10.3 03/18/2016 10.9 07/10/2015 9.6 PCP: Margot Mai MD PAST MEDICAL HISTORY Diagnosis Date Anticoagulant long-term use indication: stroke prevention atrial fibrillation At risk for stroke [id number] = 2 (CHF, DM) Atypical atrial flutter (HCC) 06/16/2022 Benign neoplasm of colon 06/12/2008 Tubular adenoma. Chronic fatigue syndrome Chronic HFrEF (heart failure with reduced ejection fraction) (HCC) Depressive disorder, not elsewhere classified 08/03/2012 YOUNG (dyspnea on exertion) Encounter for current long-term use of anticoagulants HTN (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) patient does not think he has HTN Morbid obesity due to excess calories (HCC) MARIELLA on CPAP 06/12/20082000. On CPAP. Persistent atrial fibrillation (HCC) symptomatic, possibly contributing to dilated cardiomyopathy; s/p catheter ablation 03/01/2022 Primary cardiomyopathy (HCC) Status post catheter ablation of atrial fibrillation balloon catheter cryoablation/PVAI for atrial fibrillation 03/01/2022; [facility] Dr. Bazzi Type II or unspecified type diabetes mellitus without mention of complication, uncontrolled 06/12/2008 Current Outpatient Medications Medication Sig dilTIAZem CD (CARDIZEM CD, CARTIA XT) 120 mg 24 hr capsule Take 120 mg by mouth once daily. FREESTYLE JACEK 2 READER USE DIRECTED TO CHECK AT LEAST 4 TIMES DAILY FREESTYLE JACEK 2 SENSOR kit USE 1 SENSOR EVERY 14 DAYS. warfarin (COUMADIN) 4 mg tablet Take 8 mg by mouth once daily. insulin glargine (LANTUS SOLOSTAR, BASAGLAR KWIKPEN) 100 unit/mL (3 mL) Inject 50 Units subcutaneously. Once daily insulin lispro (HUMALOG KWIKPEN) 100 unit/mL INJECT 5 TO 15 UNITS SUBCUTANEOUSLY WITH MEALS pen needle, diabetic 31 gauge x 15/64 ndle USE 4 NEEDLES DAILY warfarin (COUMADIN) 2 mg tablet 10 mg. warfarin (COUMADIN) 5 mg tablet Take 10 mg by mouth once daily. Currently as of 09/27/2022 he takes 10 mg daily except Wed and Terri takes 12 mg carvedilol (COREG) 25 mg tablet Take 25 mg by mouth twice daily with meals. furosemide (LASIX) 40 mg tablet Take 80 mg by mouth once daily. spironolactone (ALDACTONE) 25 mg tablet Take 25 mg by mouth once daily. potassium chloride (K-TAB) 10 mEq tablet Take 10 mEq by mouth once daily. buPROPion SR (ZYBAN SR; WELLBUTRIN SR) 150 mg 12 hr tablet Take 1 tablet by mouth twice daily. lisinopril (ZESTRIL) 2.5 mg tablet Take 1 tablet by mouth once daily. metFORMIN (GLUCOPHAGE) 1,000 mg tablet Take 1 tablet by mouth twice daily with meals. Current Facility-Administered Medications Medication Dose Route Frequency perflutren lipid microspheres 1.3 mL in NaCl (PF) 0.9% 10 mL injection (DEFINITY) INTRAVENOUS DIRECTED PRN sodium chloride 0.9 % (flush) 10 mL (BD POSIFLUSH) 10 mL INTRAVENOUS DIRECTED PRN sodium chloride 0.9 % (flush) 10 mL (BD POSIFLUSH) 10 mL INTRAVENOUS DIRECTED PRN ALLERGIES Allergen Reactions Penicillins Rash Had reaction as a baby PAST SURGICAL HISTORY Procedure Laterality Date AFIB ABLATION/PULM VEIN ISOLATION 03/01/2022 balloon catheter cryoablation/PVAI for atrial fibrillation; [facility] Dr. Bazzi CARDIOVERSION, ELECTIVE, ELECTRICAL 10/27/2021 unsuccessful x2 [facility] CARDIOVERSION, ELECTIVE, ELECTRICAL 09/30/2021 [facility] - Unsuccessful CARDIOVERSION, ELECTIVE, ELECTRICAL 09/27/2022 COLONOSCOPY FLX DX W/COLLJ SPEC WHEN PFRMD 2000, 2004 Colonoscopy COLONOSCOPY FLX DX W/COLLJ SPEC WHEN PFRMD 10/14/2010 Colonoscopy/repeat in 10/2015 COLONOSCOPY FLX DX W/COLLJ SPEC WHEN PFRMD 10/29/2015 CORRECT BUNION,SIMPLE 05/14/[address] Velasquez right CORRECT BUNION,SIMPLE 05/31/2011 Bunion, Left ECHO 08/15/2021 EF 15%- [facility] ECHOCARDIOGRAM 01/20/2022 [facility]; see scanned documents LEFT HEART CATH,PERCUTANEOUS 11/25/2021 no significant CAD; LVEF 20%; [facility] REM LESIO TRUNK,ARM,LEG 1.1 -2.0CM 08/08/2008 Exc. ruptured emilie cyst right upper chest REPAIR INCISIONAL HERNIA,REDUCIBLE RPR UMBILICAL HRNA 5 YRS/> REDUCIBLE 05/14/2000 Hernia repair, umbilical >5yr FAMILY HISTORY Problem Relation Age of Onset Stroke Mother COPD Mother Colon Cancer Father Heart Sister he's not sure, something involving an implant (more content not included)... [facility] 04-09-2023 Note HNO ID: [id number] Author: Christiane Roe LPN Service: ? Author Type: LICENSED NURSE Type: Progress Notes Filed: 04/09/2023 9:29 AM Note Text: AMB ROOMING INTAKE FLOWSHEET DATA Patient presents with: Left Foot - Established Patient, Diabetic Foot Care Right Foot - Diabetic Foot Care Christiane Roe LPN [facility] 04-09-2023 Instructions Lucas Blanc - 04/09/2023 8:19 AM EST Diabetes Foot Care Instructions When you have diabetes, proper foot care is very important. Poor foot care may lead to amputation of a foot or leg. As a person with diabetes, you are more vulnerable to foot problems, because diabetes can damage your nerves and reduce blood flow to your feet. Here are some diabetes foot care tips to follow: Wash and Dry Your Feet Daily Use mild soaps Use warm water Pat your skin dry; do not rub. Thoroughly dry your feet. After washing, use lotion on your feet to prevent cracking. Do not put lotion between your toes. Examine Your Feet Each Day Check the tops and bottoms of your feet. Have someone else look at your feet if you cannot see them. Check for dry, cracked skin. Look for blisters, cuts, scratches, or other sores. Check for redness, increased warmth, or tenderness when touching any area of your feet. Check for ingrown toenails, corns, and calluses. If you get a blister or sore from your shoes, do not pop it. Apply a bandage and wear a different pair of shoes. Take Care of Your Toenails Cut toenails after bathing, when they are soft. Cut toenails straight across and smooth with a nail file. Avoid cutting into the corners of toes. Do not cut cuticles. If you have neuropathy (or decreased sensation in your feet) a terrazzo finisher should always cut your toenails. Be Careful When Exercising Walk and exercise in comfortable shoes. Do not exercise when you have open sores on your feet. Protect Your Feet With Shoes and Socks Never go barefoot. Always protect your feet by wearing shoes or hard-soled slippers or footwear. Avoid shoes with high heels and pointed toes. Avoid shoes that expose your toes or heels (such as open-toed shoes or sandals). These types of shoes increase your risk for injury and potential infections. Try on new footwear with the type of socks you usually wear. Do not wear new shoes for more than an hour at a time. Change your socks daily. Look and feel inside your shoes before putting them on to make sure there are no foreign objects or rough areas. Avoid tight socks. Wear natural-fiber socks (cotton, wool, or a cotton-wool blend). Wear special shoes if your health care provider recommends them. Wear shoes/boots that will protect your feet from various weather conditions (cold, moisture, etc.). Make sure your shoes fit properly. If you have neuropathy (nerve damage), you may not notice that your shoes are too tight. Perform the footwear test described below. Footwear Test Use this simple test to see if your shoes fit correctly: Stand on a piece of paper. (Make sure you are standing and not sitting, because your foot changes shape when you stand.) Trace the outline of your foot. Trace the outline of your shoe. Compare the tracings: Is the shoe too narrow? Is your foot crammed into the shoe? The shoe should be at least 1/2 inch longer than your longest toe and as wide as your foot. Proper Shoe Choices The following types of shoes are best for people with diabetes Closed toes and heels Leather uppers without a seam inside At least 1/2 inch extra space at the end of your longest toe Inside of shoe should be soft with no rough areas Outer sole should be made of stiff material Shoes should be at least as wide as your feet Tips for Foot Care in Diabetes Don't wait to treat a minor foot problem if you have diabetes. Follow your health care provider's guidelines and first aid guidelines. Report foot injuries and infections to your health care provider immediately. Check water temperature with your elbow, not your foot. Do not use a heating pad on your feet. Do not cross your legs. Do not self-treat your corns, calluses, or other foot problems. Go to your health care provider or terrazzo finisher to treat these conditions. documented in this encounter [facility] 04-09-2023 History of Presen t illness Narrative Last time saw pcp: not in chart Subjective: This 57 year old male presents to clinic for diabetic foot check. Patient has the following complaints: painful toenail. Patient admits to being diabetic for multiple years now. Patient -B/T/N in feet at this time. Patient -pain in legs when walking. No other pedal complaints at this time. No change in medications or medical history since last visit. PAIN EVALUATION No data found in the last 1 encounters. Hemoglobin A1C (%) Date Value 03/10/2017 10.2 11/25/2016 7.3 08/12/2016 10.3 03/18/2016 10.9 07/10/2015 9.6 PCP: Margot Mai MD PAST MEDICAL HISTORY Diagnosis Date Anticoagulant long-term use indication: stroke prevention atrial fibrillation At risk for stroke [id number] = 2 (CHF, DM) Atypical atrial flutter (HCC) 06/16/2022 Benign neoplasm of colon 06/12/2008 Tubular adenoma. Chronic fatigue syndrome Chronic HFrEF (heart failure with reduced ejection fraction) (HCC) Depressive disorder, not elsewhere classified 08/03/2012 YOUNG (dyspnea on exertion) Encounter for current long-term use of anticoagulants HTN (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) patient does not think he has HTN Morbid obesity due to excess calories (HCC) MARIELLA on CPAP 06/12/20082000. On CPAP. Persistent atrial fibrillation (HCC) symptomatic, possibly contributing to dilated cardiomyopathy; s/p catheter ablation 03/01/2022 Primary cardiomyopathy (HCC) Status post catheter ablation of atrial fibrillation balloon catheter cryoablation/PVAI for atrial fibrillation 03/01/2022; [facility] [facility] Type II or unspecified type diabetes mellitus without mention of complication, uncontrolled 06/12/2008 Current Outpatient Medications Medication Sig dilTIAZem CD (CARDIZEM CD, CARTIA XT) 120 mg 24 hr capsule Take 120 mg by mouth once daily. FREESTYLE JACEK 2 READER USE DIRECTED TO CHECK AT LEAST 4 TIMES DAILY FREESTYLE JACEK 2 SENSOR kit USE 1 SENSOR EVERY 14 DAYS. warfarin (COUMADIN) 4 mg tablet Take 8 mg by mouth once daily. insulin glargine (LANTUS SOLOSTAR, BASAGLAR KWIKPEN) 100 unit/mL (3 mL) Inject 50 Units subcutaneously. Once daily insulin lispro (HUMALOG KWIKPEN) 100 unit/mL INJECT 5 TO 15 UNITS SUBCUTANEOUSLY WITH MEALS pen needle, diabetic 31 gauge x 15/64 ndle USE 4 NEEDLES DAILY warfarin (COUMADIN) 2 mg tablet 10 mg. warfarin (COUMADIN) 5 mg tablet Take 10 mg by mouth once daily. Currently as of 09/27/2022 he takes 10 mg daily except Wed and Terri takes 12 mg carvedilol (COREG) 25 mg tablet Take 25 mg by mouth twice daily with meals. furosemide (LASIX) 40 mg tablet Take 80 mg by mouth once daily. spironolactone (ALDACTONE) 25 mg tablet Take 25 mg by mouth once daily. potassium chloride (K-TAB) 10 mEq tablet Take 10 mEq by mouth once daily. buPROPion SR (ZYBAN SR; WELLBUTRIN SR) 150 mg 12 hr tablet Take 1 tablet by mouth twice daily. lisinopril (ZESTRIL) 2.5 mg tablet Take 1 tablet by mouth once daily. metFORMIN (GLUCOPHAGE) 1,000 mg tablet Take 1 tablet by mouth twice daily with meals. Current Facility-Administered Medications Medication Dose Route Frequency perflutren lipid microspheres 1.3 mL in NaCl (PF) 0.9% 10 mL injection (DEFINITY) INTRAVENOUS DIRECTED PRN sodium chloride 0.9 % (flush) 10 mL (BD POSIFLUSH) 10 mL INTRAVENOUS DIRECTED PRN sodium chloride 0.9 % (flush) 10 mL (BD POSIFLUSH) 10 mL INTRAVENOUS DIRECTED PRN ALLERGIES Allergen Reactions Penicillins Rash Had reaction as a baby PAST SURGICAL HISTORY Procedure Laterality Date AFIB ABLATION/PULM VEIN ISOLATION 03/01/2022 balloon catheter cryoablation/PVAI for atrial fibrillation; [facility] Dr. Bazzi CARDIOVERSION, ELECTIVE, ELECTRICAL 10/27/2021 unsuccessful x2 [facility] CARDIOVERSION, ELECTIVE, ELECTRICAL 09/30/2021 [facility] - Unsuccessful CARDIOVERSION, ELECTIVE, ELECTRICAL 09/27/2022 COLONOSCOPY FLX DX W/COLLJ SPEC WHEN PFRMD 2000, 2004 Colonoscopy COLONOSCOPY FLX DX W/COLLJ SPEC WHEN PFRMD 10/14/2010 Colonoscopy/repeat in 10/2015 COLONOSCOPY FLX DX W/COLLJ SPEC WHEN PFRMD 10/29/2015 CORRECT BUNION,SIMPLE 05/14/[address] Velasquez right CORRECT BUNION,SIMPLE 05/31/2011 Bunion, Left ECHO 08/15/2021 EF 15%- [facility] ECHOCARDIOGRAM 01/20/2022 [facility]; see scanned documents LEFT HEART CATH,PERCUTANEOUS 11/25/2021 no significant CAD; LVEF 20%; [facility] REM LESIO TRUNK,ARM,LEG 1.1 -2.0CM 08/08/2008 Exc. ruptured emilie cyst right upper chest REPAIR INCISIONAL HERNIA,REDUCIBLE RPR UMBILICAL HRNA 5 YRS/> REDUCIBLE 05/14/2000 Hernia repair, umbilical >5yr FAMILY HISTORY Problem Relation Age of Onset Stroke Mother COPD Mother Colon Cancer Father Heart Sister he's not sure, something involving an implant ? pacemaker No Known Problems Sister Alcohol abuse Brother Alcohol abuse Brother No Known Problems Brother Heart Failure Maternal Grandmother Diabetes Paternal Grandmother Social History Tobacco Use Smoking status: Former Packs/day: 1.00 Years: 47.00 Additional pack years: 0.00 Total pack years: 47.00 Types: Cigarettes Start date: 1974 Quit date: 08/11/2021 Years since quittin.6 Smokeless tobacco: Never Vaping Use Vaping Use: Never used Substance Use Topics Alcohol use: Yes Comment: on occasion. Drug use: No REVIEW OF SYSTEMS GENERAL: Negative for Malaise, significant weight loss, fever RESPIRATORY: Negative for cough, wheezing and shortness of breath CARDIOVASCULAR: Negative for chest pain, leg swelling and palpitations GI: Negative for abdominal discomfort, blood in stools or black stools and change in bowel habits : Negative for dysuria, frequency and incontinence MUSCULOSKELETAL: Negative for joint pain or swelling, back pain, and muscle pain. SKIN: Negative for lesions, rash, and itching. HEMATOLOGY/LYMPHOLOGY Negative for prolonged bleeding, bruising easily, and swollen nodes. ENDOCRINE: Negative for cold or heat intolerance, polyuria, polydipsia and goiter. NEURO: negative The remainder of the review of systems is noncontributory. Objective: Patient presents to clinic ambulating in [facility] Constitutional: Pt is a well developed 57 year old male who is alert, oriented, cooperative and in no apparent distress. Eyes: Following during examination. No redness or drainage. Respiratory: RR normal and nonlabored. Even breathing. No evidence of distress. Psychology: Patient is engaged during conversation. Normal affect and mood. Does not appear depressed or anxious. Vasc: DP and PT pulses are palpable bilateral. CFT is less than 5 seconds bilateral. Skin temperature is warm to warm proximal to distal bilateral. There is no edema or varicosities noted. Hair growth absent. Non-Invasive Vascular Laboratory [facility] Lower Extremity Arterial Physiology Study Bilateral/Complete Date of service/time: 08/30/2022 8:06:05 AM Name: MR. ALFIE KARIMI Date of : 1965 Age: 57 years Gender: M Clinical Indication Abnormal pulses. TECHNIQUE -------- An arterial physiological examination was performed, including measurement of blood pressures using continuous wave Doppler and recording of plethysmographic with or without Doppler waveforms at the below-mentioned limb segments. FINDINGS -------- RIGHT SIDE AT REST Right Doppler Waveforms Dorsalis pedis: Multiphasic. Post tibial: Multiphasic. Right Pressures Brachial: 120 mmHg Ankle dorsalis pedis: 138 mmHg BRENDA: 1.07 Ankle posterior tibial: 148 mmHg BRENDA: 1.15 Digit: 113 mmHg Right PVR Waveforms Ankle: Normal. Digit: Normal. LEFT SIDE AT REST Left Doppler Waveforms Dorsalis pedis: Multiphasic. Post tibial: Multiphasic. Left Pressures Brachial: 129 mmHg Ankle dorsalis pedis: 139 mmHg BRENDA: 1.08 Ankle posterior tibial: 152 mmHg BRENDA: 1.18 Digit: 132 mmHg Left PVR Waveforms Ankle: Normal. Digit: Normal. IMPRESSION RIGHT SIDE Resting right ankle brachial index: 1.15 Right toe brachial index: 0.88 Normal ankle brachial index at rest in the right leg. Normal toe brachial index at rest in the right leg. Right ankle: Normal at rest. LEFT SIDE Resting left ankle brachial index: 1.18 Left toe brachial index: 1.02 Normal ankle brachial index at rest in the left leg. Normal toe brachial index at rest in the left leg. Left ankle: Normal at rest. Technologist: Ericka Simmons RVT, [facility] Ordering physician: LUCAS BLANC Interpreting physician: Neil Figueredo MD Neuro: Protective sensation is absent to the foot and toes when tested with the 5.07 SWM bilateral. Vibratory sensation is absent at the hallu bilateral. + Significant neurological defecits. Derm: Inspection and palpation performed. Nails 1-5 left and 2-5 right are painful, discolored-yellow, thick, crumbly, dystrophic and with subungal debris. Skin is of normal turgor and texture. Hyperkeratosis noted to not present. NO ulcerations, scars, verruca or other lesions noted. Ortho: Ankle joint DF is full with the knee extended and full with knee flexed. No pain or crepitus noted. STJ, MTJ ROM are full and free of pain or crepitus. Muscle strength is 5/5 for dorsiflexors, plantarflexors, inverters, everters. Digital deformities include none. Assessment: (E11.49) Other diabetic neurological complication associated with type 2 diabetes mellitus (HCC) (primary encounter diagnosis) (B35.1) Onychomycosis (M79.675) Pain in toe of left foot (M79.674) Pain in toe of right foot Plan: 1. Patient was seen and evaluated. 2. Patient was instructed on the continued importance of diabetic foot care along with proper diet and keeping their blood sugar under control to prevent complications. Instructions given both oral and written. 3. Discussed thickening of toenails and patient desire for removal. As long as a1c is below 8 we can preoceed with removal. Toenails 1-5 b/l debrided in length and thickness. I will have patient update our office with his a1c as he tends to manage his diabetes outside the [facility] system. If his a1c is less than 8, we can pursue removal of toenails Lucas Blanc DPM AMB ROOMING INTAKE FLOWSHEET DATA Patient presents with: Left Foot - Established Patient, Diabetic Foot Care Right Foot - Diabetic Foot Care Christiane Roe LPN documented in this encounter [facility] 03-26-2023 Note HNO ID: [id number] Author: Keny Pena APRN.GRADER OPERATOR Service: ? Author Type: Nurse Practitioner Type: Progress Notes Filed: 03/26/2023 7:58 AM Note Text: [facility] Cardiology Electrophysiology PRIMARY CARE PHYSICIAN: Margot Mai [address] [place] [id number] CHIEF COMPLAINT: Persistent atrial fibrillation. HISTORY OF PRESENT ILLNESS (copied from my previous office note on 12/19/2022): Mr. Karimi is a pleasant 57-year-old gentleman who presents today for follow-up regarding history of persistent atrial fibrillation. Patient underwent cryo PVI with Dr. Bazzi in February 2022. Subsequently he was cardioverted on 09/27/2022. Twelve-lead performed in office today showed normal sinus rhythm at a rate of 66. He follows with cardiology in [place]. He reports not that long ago his Cardizem CD was reduced to 120 mg once daily due to lower extremity swelling. He denies any improvement in that since dose reduction. He has gained some weight. He is compliant with his Coumadin, Coreg, and diltiazem regimens. Echo from May 2022 showed an ejection fraction of 47%. I discussed with patient I would like to repeat a surface echo due to lower extremity swelling to make sure ejection fraction has not dropped below 40 necessitating discontinuation of diltiazem. Patient is agreeable. He denies having any symptoms of atrial fibrillation. He does utilize a [employer] mobile skip which he checks once every couple weeks. We discussed potential referral to obesity medicine. Patient declined at this time stating he has been lazy regarding his diet and is going to take steps to improve. 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 Patient agreeable to follow-up with me in 3 months to discuss results of echo and plan moving forward. Interval History: Alife is a pleasant 57-year-old gentleman who presents today for follow-up regarding history of persistent atrial fibrillation. Overall patient reports he has been feeling well since undergoing cardioversion on 09/27/2022. Presently denies any shortness of breath, angina, or worsening activity tolerance. He denies any recurrences of AF that he has been aware of. 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 He is down roughly 10 pounds since December. He is compliant with his Coreg, diltiazem CD, and Coumadin regimens. Echo from December 2022 showed ejection fraction of 55% with no valvular abnormalities. He is compliant with CPAP therapy. Twelve-lead performed in office today showed normal sinus rhythm with a ventricular rate of 65. Patient agreeable to follow-up in 6 months. PAST MEDICAL HISTORY Diagnosis Date Anticoagulant long-term use indication: stroke prevention atrial fibrillation At risk for stroke [id number] = 2 (CHF, DM) Atypical atrial flutter (HCC) 06/16/2022 Benign neoplasm of colon 06/12/2008 Tubular adenoma. Chronic fatigue syndrome Chronic HFrEF (heart failure with reduced ejection fraction) (HCC) Depressive disorder, not elsewhere classified 08/03/2012 YOUNG (dyspnea on exertion) Encounter for current long-term use of anticoagulants HTN (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) patient does not think he has HTN Morbid obesity due to excess calories (HCC) MARIELLA on CPAP 06/12/20082000. On CPAP. Persistent atrial fibrillation (HCC) symptomatic, possibly contributing to dilated cardiomyopathy; s/p catheter ablation 03/01/2022 Primary cardiomyopathy (HCC) Status post catheter ablation of atrial fibrillation balloon catheter cryoablation/PVAI for atrial fibrillation 03/01/2022; [facility] Dr. Bazzi Type II or unspecified type diabetes mellitus without mention of complication, uncontrolled 06/12/2008 PAST SURGICAL HISTORY Procedure Laterality Date AFIB ABLATION/PULM VEIN ISOLATION 03/01/2022 balloon catheter cryoablation/PVAI for atrial fibrillation; [facility] Dr. Bazzi CARDIOVERSION, ELECTIVE, ELECTRICAL 10/27/2021 unsuccessful x2 [facility] CARDIOVERSION, ELECTIVE, ELECTRICAL 09/30/2021 [facility] - Unsuccessful CARDIOVERSION, ELECTIVE, ELECTRICAL 09/27/2022 COLONOSCOPY FLX DX W/COLLJ SPEC WHEN PFRMD 2000, 2004 Colonoscopy COLONOSCOPY FLX DX W/COLLJ SPEC WHEN PFRMD 10/14/2010 Colonoscopy/repeat in 10/2015 COLONOSCOPY FLX DX W/COLLJ SPEC WHEN PFRMD 10/29/2015 CORRECT BUNION,SIMPLE 05/14/[address] Velasquez right CORRECT BUNION,SIMPLE 05/31/2011 Bunion, Left ECHO 08/15/2021 EF 15%- [facility] ECHOCARDIOGRAM 01/20/2022 [facility]; see scanned documents LEFT HEART CATH,PERCUTANEOUS 11/25/2021 no significant CAD; LVEF 20%; [facility] REM LESIO TRUNK,ARM,LEG 1.1 -2.0CM 08/08/2008 Exc. ruptured emilie cyst right upper chest REPAIR INCISIONAL HERNIA,REDUCIBLE RPR UMBILICAL HRNA 5 YRS/> REDUCIBLE 05/14/2000 Hernia repair, umbilical >5yr Socia (more content not included)... [facility] 01-09-2023 Miscellaneous Notes Left message on patient's voicemail requesting a return call regarding Keny Pena's message. Office phone number provided. Sharmaine Velez, JANETTE Please let patient know echo came back within normal limits with an ejection fraction of 55% and no evidence of significant valvular abnormalities. Thank you, Keny Pena APRN.GRADER OPERATOR January 04, 2023 8:43 AM documented in this encounter [facility] 12-28-2022 Note HNO ID: [id number] Author: Lucas Blanc Service: ? Author Type: Physician Type: Progress Notes Filed: 12/28/2022 9:22 AM Note Text: Subjective: This 57 year old male presents to clinic for diabetic foot check. Patient has the following complaints: painful toenail. States he wripped his left fifth toenail off recently. . Patient admits to being diabetic for multiple years now. Patient -B/T/N in feet at this time. Patient -pain in legs when walking. No other pedal complaints at this time. No change in medications or medical history since last visit. PAIN EVALUATION No data found in the last 1 encounters. Hemoglobin A1C (%) Date Value 03/10/2017 10.2 11/25/2016 7.3 08/12/2016 10.3 03/18/2016 10.9 07/10/2015 9.6 PCP: Margot Mai MD PAST MEDICAL HISTORY Diagnosis Date Anticoagulant long-term use indication: stroke prevention atrial fibrillation At risk for stroke [id number] = 2 (CHF, DM) Atypical atrial flutter (HCC) 06/16/2022 Benign neoplasm of colon 06/12/2008 Tubular adenoma. Chronic fatigue syndrome Chronic HFrEF (heart failure with reduced ejection fraction) (HCC) Depressive disorder, not elsewhere classified 08/03/2012 YOUNG (dyspnea on exertion) Encounter for current long-term use of anticoagulants HTN (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) patient does not think he has HTN Morbid obesity due to excess calories (HCC) MARIELLA on CPAP 06/12/20082000. On CPAP. Persistent atrial fibrillation (HCC) symptomatic, possibly contributing to dilated cardiomyopathy; s/p catheter ablation 03/01/2022 Primary cardiomyopathy (HCC) Status post catheter ablation of atrial fibrillation balloon catheter cryoablation/PVAI for atrial fibrillation 03/01/2022; [facility] Dr. Bazzi Type II or unspecified type diabetes mellitus without mention of complication, uncontrolled 06/12/2008 Current Outpatient Medications Medication Sig dilTIAZem CD (CARDIZEM CD, CARTIA XT) 120 mg 24 hr capsule Take 120 mg by mouth once daily. FREESTYLE JACEK 2 READER USE DIRECTED TO CHECK AT LEAST 4 TIMES DAILY FREESTYLE JACEK 2 SENSOR kit USE 1 SENSOR EVERY 14 DAYS. warfarin (COUMADIN) 4 mg tablet Take 8 mg by mouth once daily. insulin glargine (LANTUS SOLOSTAR, BASAGLAR KWIKPEN) 100 unit/mL (3 mL) Inject 50 Units subcutaneously. Once daily insulin lispro (HUMALOG KWIKPEN) 100 unit/mL INJECT 5 TO 15 UNITS SUBCUTANEOUSLY WITH MEALS pen needle, diabetic 31 gauge x 15/64 ndle USE 4 NEEDLES DAILY warfarin (COUMADIN) 2 mg tablet 10 mg. warfarin (COUMADIN) 5 mg tablet Take 10 mg by mouth once daily. Currently as of 09/27/2022 he takes 10 mg daily except Wed and Terri takes 12 mg carvedilol (COREG) 25 mg tablet Take 25 mg by mouth twice daily with meals. furosemide (LASIX) 40 mg tablet Take 80 mg by mouth once daily. spironolactone (ALDACTONE) 25 mg tablet Take 25 mg by mouth once daily. potassium chloride (K-TAB) 10 mEq tablet Take 10 mEq by mouth once daily. buPROPion SR (ZYBAN SR; WELLBUTRIN SR) 150 mg 12 hr tablet Take 1 tablet by mouth twice daily. lisinopril (ZESTRIL) 2.5 mg tablet Take 1 tablet by mouth once daily. metFORMIN (GLUCOPHAGE) 1,000 mg tablet Take 1 tablet by mouth twice daily with meals. Current Facility-Administered Medications Medication Dose Route Frequency perflutren lipid microspheres 1.3 mL in NaCl (PF) 0.9% 10 mL injection (DEFINITY) INTRAVENOUS DIRECTED PRN sodium chloride 0.9 % (flush) 10 mL (BD POSIFLUSH) 10 mL INTRAVENOUS DIRECTED PRN sodium chloride 0.9 % (flush) 10 mL (BD POSIFLUSH) 10 mL INTRAVENOUS DIRECTED PRN ALLERGIES Allergen Reactions Penicillins Rash Had reaction as a baby PAST SURGICAL HISTORY Procedure Laterality Date AFIB ABLATION/PULM VEIN ISOLATION 03/01/2022 balloon catheter cryoablation/PVAI for atrial fibrillation; [facility] Dr. Bazzi CARDIOVERSION, ELECTIVE, ELECTRICAL 10/27/2021 unsuccessful x2 [facility] CARDIOVERSION, ELECTIVE, ELECTRICAL 09/30/2021 [facility] - Unsuccessful CARDIOVERSION, ELECTIVE, ELECTRICAL 09/27/2022 COLONOSCOPY FLX DX W/COLLJ SPEC WHEN PFRMD 2000, 2004 Colonoscopy COLONOSCOPY FLX DX W/COLLJ SPEC WHEN PFRMD 10/14/2010 Colonoscopy/repeat in 10/2015 COLONOSCOPY FLX DX W/COLLJ SPEC WHEN PFRMD 10/29/2015 CORRECT BUNION,SIMPLE 05/14/[address] Velasquez right CORRECT BUNION,SIMPLE 05/31/2011 Bunion, Left ECHO 08/15/2021 EF 15%- [facility] ECHOCARDIOGRAM 01/20/2022 [facility]; see scanned documents LEFT HEART CATH,PERCUTANEOUS 11/25/2021 no significant CAD; LVEF 20%; [facility] REM LESIO TRUNK,ARM,LEG 1.1 -2.0CM 08/08/2008 Exc. ruptured emilie cyst right upper chest REPAIR INCISIONAL HERNIA,REDUCIBLE RPR UMBILICAL HRNA 5 YRS/> REDUCIBLE 05/14/2000 Hernia repair, umbilical >5yr FAMILY HISTORY Problem Relation Age of Onset Stroke Mother COPD Mother Colon Cancer Father Heart Sister he's not sure, someth (more content not included)... [facility] 12-28-2022 Note HNO ID: [id number] Author: Blossom Romeo RN Service: ? Author Type: Registered Nurse Type: Progress Notes Filed: 12/28/2022 9:22 AM Note Text: Patient presents with: Left Foot - Established Patient: PVR follow up Right Foot - Established Patient: PVR follow up Pt states he hit left foot, small toe ~2 weeks ago and part of the nail fell off. He states it was bleeding everywhere and needed a friend to help him trim what was hanging. States no current issue with it. [facility] 12-28-2022 Instructions Lucas Blanc - 12/28/2022 9:18 AM EDT Diabetes Foot Care Instructions When you have diabetes, proper foot care is very important. Poor foot care may lead to amputation of a foot or leg. As a person with diabetes, you are more vulnerable to foot problems, because diabetes can damage your nerves and reduce blood flow to your feet. Here are some diabetes foot care tips to follow: Wash and Dry Your Feet Daily Use mild soaps Use warm water Pat your skin dry; do not rub. Thoroughly dry your feet. After washing, use lotion on your feet to prevent cracking. Do not put lotion between your toes. Examine Your Feet Each Day Check the tops and bottoms of your feet. Have someone else look at your feet if you cannot see them. Check for dry, cracked skin. Look for blisters, cuts, scratches, or other sores. Check for redness, increased warmth, or tenderness when touching any area of your feet. Check for ingrown toenails, corns, and calluses. If you get a blister or sore from your shoes, do not pop it. Apply a bandage and wear a different pair of shoes. Take Care of Your Toenails Cut toenails after bathing, when they are soft. Cut toenails straight across and smooth with a nail file. Avoid cutting into the corners of toes. Do not cut cuticles. If you have neuropathy (or decreased sensation in your feet) a terrazzo finisher should always cut your toenails. Be Careful When Exercising Walk and exercise in comfortable shoes. Do not exercise when you have open sores on your feet. Protect Your Feet With Shoes and Socks Never go barefoot. Always protect your feet by wearing shoes or hard-soled slippers or footwear. Avoid shoes with high heels and pointed toes. Avoid shoes that expose your toes or heels (such as open-toed shoes or sandals). These types of shoes increase your risk for injury and potential infections. Try on new footwear with the type of socks you usually wear. Do not wear new shoes for more than an hour at a time. Change your socks daily. Look and feel inside your shoes before putting them on to make sure there are no foreign objects or rough areas. Avoid tight socks. Wear natural-fiber socks (cotton, wool, or a cotton-wool blend). Wear special shoes if your health care provider recommends them. Wear shoes/boots that will protect your feet from various weather conditions (cold, moisture, etc.). Make sure your shoes fit properly. If you have neuropathy (nerve damage), you may not notice that your shoes are too tight. Perform the footwear test described below. Footwear Test Use this simple test to see if your shoes fit correctly: Stand on a piece of paper. (Make sure you are standing and not sitting, because your foot changes shape when you stand.) Trace the outline of your foot. Trace the outline of your shoe. Compare the tracings: Is the shoe too narrow? Is your foot crammed into the shoe? The shoe should be at least 1/2 inch longer than your longest toe and as wide as your foot. Proper Shoe Choices The following types of shoes are best for people with diabetes Closed toes and heels Leather uppers without a seam inside At least 1/2 inch extra space at the end of your longest toe Inside of shoe should be soft with no rough areas Outer sole should be made of stiff material Shoes should be at least as wide as your feet Tips for Foot Care in Diabetes Don't wait to treat a minor foot problem if you have diabetes. Follow your health care provider's guidelines and first aid guidelines. Report foot injuries and infections to your health care provider immediately. Check water temperature with your elbow, not your foot. Do not use a heating pad on your feet. Do not cross your legs. Do not self-treat your corns, calluses, or other foot problems. Go to your health care provider or terrazzo finisher to treat these conditions. documented in this encounter [facility] 12-28-2022 History of Presen t illness Narrative Subjective: This 57 year old male presents to clinic for diabetic foot check. Patient has the following complaints: painful toenail. States he wripped his left fifth toenail off recently. . Patient admits to being diabetic for multiple years now. Patient -B/T/N in feet at this time. Patient -pain in legs when walking. No other pedal complaints at this time. No change in medications or medical history since last visit. PAIN EVALUATION No data found in the last 1 encounters. Hemoglobin A1C (%) Date Value 03/10/2017 10.2 11/25/2016 7.3 08/12/2016 10.3 03/18/2016 10.9 07/10/2015 9.6 PCP: Margot Mai MD PAST MEDICAL HISTORY Diagnosis Date Anticoagulant long-term use indication: stroke prevention atrial fibrillation At risk for stroke [id number] = 2 (CHF, DM) Atypical atrial flutter (HCC) 06/16/2022 Benign neoplasm of colon 06/12/2008 Tubular adenoma. Chronic fatigue syndrome Chronic HFrEF (heart failure with reduced ejection fraction) (HCC) Depressive disorder, not elsewhere classified 08/03/2012 YOUNG (dyspnea on exertion) Encounter for current long-term use of anticoagulants HTN (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) patient does not think he has HTN Morbid obesity due to excess calories (HCC) MARIELLA on CPAP 06/12/20082000. On CPAP. Persistent atrial fibrillation (HCC) symptomatic, possibly contributing to dilated cardiomyopathy; s/p catheter ablation 03/01/2022 Primary cardiomyopathy (HCC) Status post catheter ablation of atrial fibrillation balloon catheter cryoablation/PVAI for atrial fibrillation 03/01/2022; [facility] Dr. Bazzi Type II or unspecified type diabetes mellitus without mention of complication, uncontrolled 06/12/2008 Current Outpatient Medications Medication Sig dilTIAZem CD (CARDIZEM CD, CARTIA XT) 120 mg 24 hr capsule Take 120 mg by mouth once daily. FREESTYLE JACEK 2 READER USE DIRECTED TO CHECK AT LEAST 4 TIMES DAILY FREESTYLE JACEK 2 SENSOR kit USE 1 SENSOR EVERY 14 DAYS. warfarin (COUMADIN) 4 mg tablet Take 8 mg by mouth once daily. insulin glargine (LANTUS SOLOSTAR, BASAGLAR KWIKPEN) 100 unit/mL (3 mL) Inject 50 Units subcutaneously. Once daily insulin lispro (HUMALOG KWIKPEN) 100 unit/mL INJECT 5 TO 15 UNITS SUBCUTANEOUSLY WITH MEALS pen needle, diabetic 31 gauge x 15/64 ndle USE 4 NEEDLES DAILY warfarin (COUMADIN) 2 mg tablet 10 mg. warfarin (COUMADIN) 5 mg tablet Take 10 mg by mouth once daily. Currently as of 09/27/2022 he takes 10 mg daily except Wed and Terri takes 12 mg carvedilol (COREG) 25 mg tablet Take 25 mg by mouth twice daily with meals. furosemide (LASIX) 40 mg tablet Take 80 mg by mouth once daily. spironolactone (ALDACTONE) 25 mg tablet Take 25 mg by mouth once daily. potassium chloride (K-TAB) 10 mEq tablet Take 10 mEq by mouth once daily. buPROPion SR (ZYBAN SR; WELLBUTRIN SR) 150 mg 12 hr tablet Take 1 tablet by mouth twice daily. lisinopril (ZESTRIL) 2.5 mg tablet Take 1 tablet by mouth once daily. metFORMIN (GLUCOPHAGE) 1,000 mg tablet Take 1 tablet by mouth twice daily with meals. Current Facility-Administered Medications Medication Dose Route Frequency perflutren lipid microspheres 1.3 mL in NaCl (PF) 0.9% 10 mL injection (DEFINITY) INTRAVENOUS DIRECTED PRN sodium chloride 0.9 % (flush) 10 mL (BD POSIFLUSH) 10 mL INTRAVENOUS DIRECTED PRN sodium chloride 0.9 % (flush) 10 mL (BD POSIFLUSH) 10 mL INTRAVENOUS DIRECTED PRN ALLERGIES Allergen Reactions Penicillins Rash Had reaction as a baby PAST SURGICAL HISTORY Procedure Laterality Date AFIB ABLATION/PULM VEIN ISOLATION 03/01/2022 balloon catheter cryoablation/PVAI for atrial fibrillation; [facility] Dr. Bazzi CARDIOVERSION, ELECTIVE, ELECTRICAL 10/27/2021 unsuccessful x2 [facility] CARDIOVERSION, ELECTIVE, ELECTRICAL 09/30/2021 [facility] - Unsuccessful CARDIOVERSION, ELECTIVE, ELECTRICAL 09/27/2022 COLONOSCOPY FLX DX W/COLLJ SPEC WHEN PFRMD 2000, 2004 Colonoscopy COLONOSCOPY FLX DX W/COLLJ SPEC WHEN PFRMD 10/14/2010 Colonoscopy/repeat in 10/2015 COLONOSCOPY FLX DX W/COLLJ SPEC WHEN PFRMD 10/29/2015 CORRECT BUNION,SIMPLE 05/14/[address] Velasquez right CORRECT BUNION,SIMPLE 05/31/2011 Bunion, Left ECHO 08/15/2021 EF 15%- [facility] ECHOCARDIOGRAM 01/20/2022 [facility]; see scanned documents LEFT HEART CATH,PERCUTANEOUS 11/25/2021 no significant CAD; LVEF 20%; [facility] REM LESIO TRUNK,ARM,LEG 1.1 -2.0CM 08/08/2008 Exc. ruptured emilie cyst right upper chest REPAIR INCISIONAL HERNIA,REDUCIBLE RPR UMBILICAL HRNA 5 YRS/> REDUCIBLE 05/14/2000 Hernia repair, umbilical >5yr FAMILY HISTORY Problem Relation Age of Onset Stroke Mother COPD Mother Colon Cancer Father Heart Sister he's not sure, something involving an implant ? pacemaker No Known Problems Sister Alcohol abuse Brother Alcohol abuse Brother No Known Problems Brother Heart Failure Maternal Grandmother Diabetes Paternal Grandmother Social History Tobacco Use Smoking status: Former Packs/day: 1.00 Years: 47.00 Additional pack years: 0.00 Total pack years: 47.00 Types: Cigarettes Start date: 1974 Quit date: 08/11/2021 Years since quittin.3 Smokeless tobacco: Never Vaping Use Vaping Use: Never used Substance Use Topics Alcohol use: Yes Comment: on occasion. Drug use: No REVIEW OF SYSTEMS GENERAL: Negative for Malaise, significant weight loss, fever RESPIRATORY: Negative for cough, wheezing and shortness of breath CARDIOVASCULAR: Negative for chest pain, leg swelling and palpitations GI: Negative for abdominal discomfort, blood in stools or black stools and change in bowel habits : Negative for dysuria, frequency and incontinence MUSCULOSKELETAL: Negative for joint pain or swelling, back pain, and muscle pain. SKIN: Negative for lesions, rash, and itching. HEMATOLOGY/LYMPHOLOGY Negative for prolonged bleeding, bruising easily, and swollen nodes. ENDOCRINE: Negative for cold or heat intolerance, polyuria, polydipsia and goiter. NEURO: negative The remainder of the review of systems is noncontributory. Objective: Patient presents to clinic ambulating in [facility] Constitutional: Pt is a well developed 57 year old male who is alert, oriented, cooperative and in no apparent distress. Eyes: Following during examination. No redness or drainage. Respiratory: RR normal and nonlabored. Even breathing. No evidence of distress. Psychology: Patient is engaged during conversation. Normal affect and mood. Does not appear depressed or anxious. Vasc: DP and PT pulses are palpable bilateral. CFT is less than 5 seconds bilateral. Skin temperature is warm to warm proximal to distal bilateral. There is mild edema or varicosities noted. Hair growth present. Non-Invasive Vascular Laboratory [facility] Lower Extremity Arterial Physiology Study Bilateral/Complete Date of service/time: 08/30/2022 8:06:05 AM Name: MR. ALFIE KARIMI Date of : 1965 Age: 57 years Gender: M Clinical Indication Abnormal pulses. TECHNIQUE -------- An arterial physiological examination was performed, including measurement of blood pressures using continuous wave Doppler and recording of plethysmographic with or without Doppler waveforms at the below-mentioned limb segments. FINDINGS -------- RIGHT SIDE AT REST Right Doppler Waveforms Dorsalis pedis: Multiphasic. Post tibial: Multiphasic. Right Pressures Brachial: 120 mmHg Ankle dorsalis pedis: 138 mmHg BRENDA: 1.07 Ankle posterior tibial: 148 mmHg BRENDA: 1.15 Digit: 113 mmHg Right PVR Waveforms Ankle: Normal. Digit: Normal. LEFT SIDE AT REST Left Doppler Waveforms Dorsalis pedis: Multiphasic. Post tibial: Multiphasic. Left Pressures Brachial: 129 mmHg Ankle dorsalis pedis: 139 mmHg BRENDA: 1.08 Ankle posterior tibial: 152 mmHg BRENDA: 1.18 Digit: 132 mmHg Left PVR Waveforms Ankle: Normal. Digit: Normal. IMPRESSION RIGHT SIDE Resting right ankle brachial index: 1.15 Right toe brachial index: 0.88 Normal ankle brachial index at rest in the right leg. Normal toe brachial index at rest in the right leg. Right ankle: Normal at rest. LEFT SIDE Resting left ankle brachial index: 1.18 Left toe brachial index: 1.02 Normal ankle brachial index at rest in the left leg. Normal toe brachial index at rest in the left leg. Left ankle: Normal at rest. Technologist: Ericka Simmons RVT, [facility] Ordering physician: LUCAS BLANC Neuro: Protective sensation is intact to the foot and toes when tested with the 5.07 SWM bilateral. Vibratory sensation is decreased at the hallxu bilateral. + Significant neurological defecits. Derm: Inspection and palpation performed. Nails 1-5 left and 2-5 right are painful, discolored-yellow, thick, crumbly, dystrophic and with subungal debris. Skin is of normal turgor and texture. Hyperkeratosis noted to left 2nd metatarsal. NO ulcerations, scars, verruca or other lesions noted. Ortho: Ankle joint DF is full with the knee extended and full with knee flexed. No pain or crepitus noted. STJ, MTJ ROM are full and free of pain or crepitus. Muscle strength is 5/5 for dorsiflexors, plantarflexors, inverters, everters. Digital deformities include mild bunion. Assessment: (E11.49) Other diabetic neurological complication associated with type 2 diabetes mellitus (HCC) (primary encounter diagnosis) (L85.9) Hyperkeratosis (B35.1) Onychomycosis (M79.675) Pain in toe of left foot (M79.674) Pain in toe of right foot Plan: 1. Patient was seen and evaluated. 2. Patient was instructed on the continued importance of diabetic foot care along with proper diet and keeping their blood sugar under control to prevent complications. Instructions given both oral and written. 3. Toenails 1-5 left and 2-5 right were debrided in length and thickness. Could consider removal but needs to get his a1c better controlled 4. Callus reduced with dremmel to left foot. Being diabetic with neuropathy and callus, would encourage diabetic shoes. These were ordered at last office visit. He needs to make an appointment. He still has order Lucas Blanc DPM Patient presents with: Left Foot - Established Patient: PVR follow up Right Foot - Established Patient: PVR follow up Pt states he hit left foot, small toe ~2 weeks ago and part of the nail fell off. He states it was bleeding everywhere and needed a friend to help him trim what was hanging. States no current issue with it. documented in this encounter [facility] 12-19-2022 Note HNO ID: [id number] Author: Keny Pena APRN.GRADER OPERATOR Service: ? Author Type: Nurse Practitioner Type: Progress Notes Filed: 12/19/2022 9:53 AM Note Text: [facility] General Cardiology Electrophysiology PRIMARY CARE PHYSICIAN: Margot Mai [address] [place] [address] CHIEF COMPLAINT: Persistent atrial fibrillation. HISTORY OF PRESENT ILLNESS (copied from my previous office note on 06/06/2022): Mr. Karimi is a pleasant 56-year-old male who presents today for 3-month follow-up status post cryo PVI with Dr. Bazzi on 03/01/2022. Twelve-lead performed in office today showed likely atrial flutter with ventricular rate of 127. Possibly atrial tach. Patient was placed on diltiazem CR 120 mg daily by his general osd clerk Dr. Marcus. Overall patient reports he feels fine. He does indicate he is able to walk slightly further than before before he becomes short of breath. He denies angina, worsening to tolerance, shortness of breath, or constitutional symptoms. We discussed option of heading to the ED. However after conferring with my attending decision was made to make his long-acting Cardizem twice a day. Patient had been taking once a day in the evening. I requested when he gets home from his appointment to take 2 of his 120 mg tablets. Patient aware we will bring him back shortly for DCCV. 3-month post PVI testing pending. Patient is a [id number] of 3 secondary to 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, diabetes, and CHF. He takes Coumadin 8 mg on Tuesdays, Wednesdays, , and Fridays with 7 mg on all other days. He is also on Coreg 25 mg twice daily. Patient agreeable to follow-up in 3 months. Interval History: Mr. Karimi is a pleasant 57-year-old gentleman who presents today for follow-up regarding history of persistent atrial fibrillation. Patient underwent cryo PVI with Dr. Bazzi in February 2022. Subsequently he was cardioverted on 09/27/2022. Twelve-lead performed in office today showed normal sinus rhythm at a rate of 66. He follows with cardiology in [place]. He reports not that long ago his Cardizem CD was reduced to 120 mg once daily due to lower extremity swelling. He denies any improvement in that since dose reduction. He has gained some weight. He is compliant with his Coumadin, Coreg, and diltiazem regimens. Echo from May 2022 showed an ejection fraction of 47%. I discussed with patient I would like to repeat a surface echo due to lower extremity swelling to make sure ejection fraction has not dropped below 40 necessitating discontinuation of diltiazem. Patient is agreeable. He denies having any symptoms of atrial fibrillation. He does utilize a [employer] mobile skip which he checks once every couple weeks. We discussed potential referral to obesity medicine. Patient declined at this time stating he has been lazy regarding his diet and is going to take steps to improve. 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 Patient agreeable to follow-up with me in 3 months to discuss results of echo and plan moving forward. PAST MEDICAL HISTORY Diagnosis Date Anticoagulant long-term use indication: stroke prevention atrial fibrillation At risk for stroke [id number] = 2 (CHF, DM) Atypical atrial flutter (HCC) 06/16/2022 Benign neoplasm of colon 06/12/2008 Tubular adenoma. Chronic fatigue syndrome Chronic HFrEF (heart failure with reduced ejection fraction) (HCC) Depressive disorder, not elsewhere classified 08/03/2012 YOUNG (dyspnea on exertion) Encounter for current long-term use of anticoagulants HTN (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) patient does not think he has HTN Morbid obesity due to excess calories (HCC) MARIELLA on CPAP 06/12/2008 2001. On CPAP. Persistent atrial fibrillation (HCC) symptomatic, possibly contributing to dilated cardiomyopathy; s/p catheter ablation 03/01/2022 Primary cardiomyopathy (HCC) Status post catheter ablation of atrial fibrillation balloon catheter cryoablation/PVAI for atrial fibrillation 03/01/2022; [facility] Dr. Bazzi Type II or unspecified type diabetes mellitus without mention of complication, uncontrolled 06/12/2008 PAST SURGICAL HISTORY Procedure Laterality Date AFIB ABLATION/PULM VEIN ISOLATION 03/01/2022 balloon catheter cryoablation/PVAI for atrial fibrillation; [facility] Dr. Bazzi CARDIOVERSION, ELECTIVE, ELECTRICAL 10/27/2021 unsuccessful x2 [facility] CARDIOVERSION, ELECTIVE, ELECTRICAL 09/30/2021 [facility] - Unsuccessful CARDIOVERSION, ELECTIVE, ELECTRICAL 09/27/2022 COLONOSCOPY FLX DX W/COLLJ SPEC WHEN PFRMD 2000, 2004 Colonoscopy COLONOSCOPY FLX DX W/COLLJ SPEC WHEN PFRMD 10/14/2010 Colonoscopy/repeat in 10/2015 COLONOSCOPY FLX DX W/COLLJ SPEC WHEN PFRMD 10/29/2015 CORRECT BUNION,SIMPLE 05/14/[address] Velasquez right CORRECT BUNION,SIMPLE 05/31/2011 Bunion, Left ECHO 08/16/19 (more content not included)... [facility] 12-19-2022 History of Presen t illness Narrative [facility] Cardiology Electrophysiology PRIMARY CARE PHYSICIAN: Margot Mai [address] [place] [address] CHIEF COMPLAINT: Persistent atrial fibrillation. HISTORY OF PRESENT ILLNESS (copied from my previous office note on 06/06/2022): Mr. Karimi is a pleasant 56-year-old male who presents today for 3-month follow-up status post cryo PVI with Dr. Bazzi on 03/01/2022. Twelve-lead performed in office today showed likely atrial flutter with ventricular rate of 127. Possibly atrial tach. Patient was placed on diltiazem CR 120 mg daily by his general osd clerk Dr. Marcus. Overall patient reports he feels fine. He does indicate he is able to walk slightly further than before before he becomes short of breath. He denies angina, worsening to tolerance, shortness of breath, or constitutional symptoms. We discussed option of heading to the ED. However after conferring with my attending decision was made to make his long-acting Cardizem twice a day. Patient had been taking once a day in the evening. I requested when he gets home from his appointment to take 2 of his 120 mg tablets. Patient aware we will bring him back shortly for DCCV. 3-month post PVI testing pending. Patient is a [id number] of 3 secondary to 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, diabetes, and CHF. He takes Coumadin 8 mg on Tuesdays, Wednesdays, , and Fridays with 7 mg on all other days. He is also on Coreg 25 mg twice daily. Patient agreeable to follow-up in 3 months. Interval History: Mr. Karimi is a pleasant 57-year-old gentleman who presents today for follow-up regarding history of persistent atrial fibrillation. Patient underwent cryo PVI with Dr. Bazzi in February 2022. Subsequently he was cardioverted on 09/27/2022. Twelve-lead performed in office today showed normal sinus rhythm at a rate of 66. He follows with cardiology in [place]. He reports not that long ago his Cardizem CD was reduced to 120 mg once daily due to lower extremity swelling. He denies any improvement in that since dose reduction. He has gained some weight. He is compliant with his Coumadin, Coreg, and diltiazem regimens. Echo from May 2022 showed an ejection fraction of 47%. I discussed with patient I would like to repeat a surface echo due to lower extremity swelling to make sure ejection fraction has not dropped below 40 necessitating discontinuation of diltiazem. Patient is agreeable. He denies having any symptoms of atrial fibrillation. He does utilize a [employer] mobile skip which he checks once every couple weeks. We discussed potential referral to obesity medicine. Patient declined at this time stating he has been lazy regarding his diet and is going to take steps to improve. 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 Patient agreeable to follow-up with me in 3 months to discuss results of echo and plan moving forward. PAST MEDICAL HISTORY Diagnosis Date Anticoagulant long-term use indication: stroke prevention atrial fibrillation At risk for stroke [id number] = 2 (CHF, DM) Atypical atrial flutter (HCC) 06/16/2022 Benign neoplasm of colon 06/12/2008 Tubular adenoma. Chronic fatigue syndrome Chronic HFrEF (heart failure with reduced ejection fraction) (HCC) Depressive disorder, not elsewhere classified 08/03/2012 YOUNG (dyspnea on exertion) Encounter for current long-term use of anticoagulants HTN (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) patient does not think he has HTN Morbid obesity due to excess calories (HCC) MARIELLA on CPAP 06/12/20082000. On CPAP. Persistent atrial fibrillation (HCC) symptomatic, possibly contributing to dilated cardiomyopathy; s/p catheter ablation 03/01/2022 Primary cardiomyopathy (HCC) Status post catheter ablation of atrial fibrillation balloon catheter cryoablation/PVAI for atrial fibrillation 03/01/2022; [facility] Dr. Bazzi Type II or unspecified type diabetes mellitus without mention of complication, uncontrolled 06/12/2008 PAST SURGICAL HISTORY Procedure Laterality Date AFIB ABLATION/PULM VEIN ISOLATION 03/01/2022 balloon catheter cryoablation/PVAI for atrial fibrillation; [facility] Dr. Bazzi CARDIOVERSION, ELECTIVE, ELECTRICAL 10/27/2021 unsuccessful x2 [facility] CARDIOVERSION, ELECTIVE, ELECTRICAL 09/30/2021 [facility] - Unsuccessful CARDIOVERSION, ELECTIVE, ELECTRICAL 09/27/2022 COLONOSCOPY FLX DX W/COLLJ SPEC WHEN PFRMD 2004 Colonoscopy COLONOSCOPY FLX DX W/COLLJ SPEC WHEN PFRMD 10/14/2010 Colonoscopy/repeat in 10/2015 COLONOSCOPY FLX DX W/COLLJ SPEC WHEN PFRMD 10/29/2015 CORRECT BUNION,SIMPLE 05/14/[address] Velasquez right CORRECT BUNION,SIMPLE 05/31/2011 Bunion, Left ECHO 08/15/2021 EF 15%- [facility] ECHOCARDIOGRAM 01/20/2022 [facility]; see scanned documents LEFT HEART CATH,PERCUTANEOUS 11/25/2021 no significant CAD; LVEF 20%; [facility] REM LESIO TRUNK,ARM,LEG 1.1 -2.0CM 08/08/2008 Exc. ruptured emilie cyst right upper chest REPAIR INCISIONAL HERNIA,REDUCIBLE RPR UMBILICAL HRNA 5 YRS/> REDUCIBLE 05/14/2000 Hernia repair, umbilical >5yr Social History Tobacco Use Smoking status: Former Packs/day: 1.00 Years: 47.00 Total pack years: 47.00 Types: Cigarettes Start date: 1974 Quit date: 08/11/2021 Years since quittin.3 Smokeless tobacco: Never Substance Use Topics Alcohol use: Yes Comment: on occasion. Drug use: No Family History Problem Relation Age of Onset Stroke Mother COPD Mother Colon Cancer Father Heart Sister he's not sure, something involving an implant ? pacemaker No Known Problems Sister Alcohol abuse Brother Alcohol abuse Brother No Known Problems Brother Heart Failure Maternal Grandmother Diabetes Paternal Grandmother ALLERGIES Allergen Reactions Penicillins Rash Had reaction as a baby MEDICATIONS: dilTIAZem CD (CARDIZEM CD, CARTIA XT) 120 mg 24 hr capsule^Take 120 mg by mouth once daily.^Disp: ^Rfl: [employer] JACEK 2 READER^USE DIRECTED TO CHECK AT LEAST 4 TIMES DAILY^Disp: ^Rfl: [employer] JACEK 2 SENSOR kit^USE 1 SENSOR EVERY 14 DAYS.^Disp: ^Rfl: warfarin (COUMADIN) 4 mg tablet^Take 8 mg by mouth once daily.^Disp: ^Rfl: insulin glargine (LANTUS SOLOSTAR, BASAGLAR KWIKPEN) 100 unit/mL (3 mL)^Inject 50 Units subcutaneously. Once daily^Disp: ^Rfl: insulin lispro (HUMALOG KWIKPEN) 100 unit/mL^INJECT 5 TO 15 UNITS SUBCUTANEOUSLY WITH MEALS^Disp: ^Rfl: pen needle, diabetic 31 gauge x 15/64 ndle^USE 4 NEEDLES DAILY^Disp: ^Rfl: warfarin (COUMADIN) 2 mg tablet^10 mg.^Disp: ^Rfl: warfarin (COUMADIN) 5 mg tablet^Take 10 mg by mouth once daily. Currently as of 09/27/2022 he takes 10 mg daily except Wed and Terri takes 12 mg^Disp: ^Rfl: carvedilol (COREG) 25 mg tablet^Take 25 mg by mouth twice daily with meals.^Disp: ^Rfl: furosemide (LASIX) 40 mg tablet^Take 80 mg by mouth once daily.^Disp: ^Rfl: spironolactone (ALDACTONE) 25 mg tablet^Take 25 mg by mouth once daily.^Disp: ^Rfl: potassium chloride (K-TAB) 10 mEq tablet^Take 10 mEq by mouth once daily.^Disp: ^Rfl: buPROPion SR (ZYBAN SR; WELLBUTRIN SR) 150 mg 12 hr tablet^Take 1 tablet by mouth twice daily.^Disp: 180 tablet^Rfl: 1 lisinopril (ZESTRIL) 2.5 mg tablet^Take 1 tablet by mouth once daily.^Disp: 90 tablet^Rfl: 1 metFORMIN (GLUCOPHAGE) 1,000 mg tablet^Take 1 tablet by mouth twice daily with meals.^Disp: 180 tablet^Rfl: 1 REVIEW OF SYSTEMS: Review of Systems Constitutional: Negative for chills, fatigue and fever. Respiratory: Negative for apnea, cough, chest tightness, shortness of breath and wheezing. Cardiovascular: Negative for chest pain, palpitations and leg swelling. Gastrointestinal: Negative for abdominal distention, abdominal pain, constipation, diarrhea, nausea and vomiting. Genitourinary: Negative for difficulty urinating, dysuria and hematuria. Musculoskeletal: Negative for arthralgias. Neurological: Negative for dizziness, weakness, light-headedness and headaches. Psychiatric/Behavioral: Negative for agitation, behavioral problems, confusion and suicidal ideas. PHYSICAL EXAMINATION: BP 104/73 Pulse 68 Ht 6' 2 (1.88m) Wt 357 lb (161.9kg) SpO2 98% BMI 45.82 kg/(m^2). Physical Exam Constitutional: Appearance: He is obese. Cardiovascular: Rate and Rhythm: Normal rate and regular rhythm. Pulses: Normal pulses. Radial pulses are 2+ on the right side and 2+ on the left side. Posterior tibial pulses are 2+ on the right side and 2+ on the left side. Heart sounds: Normal heart sounds, S1 normal and S2 normal. Comments: Normal sinus rhythm with a ventricular rate of 66. Pulmonary: Effort: Pulmonary effort is normal. Breath sounds: Normal breath sounds. Abdominal: General: Bowel sounds are normal. Palpations: Abdomen is soft. Musculoskeletal: Right lower leg: Edema present. Left lower leg: Edema present. Comments: Left lower extremity edema slightly greater than right lower extremity edema. Skin: General: Skin is warm and dry. Neurological: Mental Status: He is alert and oriented to person, place, and time. Psychiatric: Mood and Affect: Mood normal. Behavior: Behavior normal. CARDIOVASCULAR MEDICINE TESTING: DCCV report 09/27/2022 Patient was successfully converted out of atrial fibrillation to sinus rhythm at a rate of 60. Echo 06/06/2022 - Exam indication: CHF - The left ventricle is normal in size. Left ventricular systolic function is mildly decreased. EF = 47 5% (2D biplane) Definity contrast used for endocardial border detection. Indeterminate left ventricular diastolic dysfunction due to inconsistent or technically suboptimal data. - The right ventricle is normal in size. Right ventricular systolic function is normal. - The patient has not had a prior [facility] echocardiographic exam for comparison. I have reviewed the EKG, echocardiogram, and DCCV report. PLAN AND RECOMMENDATIONS: ASSESSMENT/PLAN: 1. Status post catheter ablation of atrial fibrillation - ICD9: V45.89, ICD10: Z98.890 (primary diagnosis) Patient previously underwent cryo PVI with Dr. Bazzi in February 2022. Subsequently underwent successful cardioversion in September 2022. Current treatment regimen includes Coumadin 8 mg daily, Coreg 25 mg twice daily, and diltiazem CR 360 mg daily. [id number] of at least 3 secondary to CHF, diabetes, and 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. Echo from May 2022 showed ejection fraction of 47%. Patient is compliant with CPAP therapy. 2. Persistent atrial fibrillation (HCC) - ICD9: 427.31, ICD10: I48.19 As above. 3. Essential (primary) 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 - ICD9: 401.9, ICD10: I10 BP today 104/73. 4. MARIELLA on CPAP - ICD9: 327.23, V46.8, ICD10: G47.33 Patient is compliant with CPAP therapy. 5. At risk for stroke - ICD9: V15.89, ICD10: Z91.89 As above. 6. Obesity, Class III, BMI 40-49.9 (morbid obesity) (HCC) - ICD9: 278.01, ICD10: E66.01 Current historical BMI listed at 43.65. Return in about 3 months (around 03/21/2023) for Follow up with me in 3 months.. Keny Pena APRN.GRADER OPERATOR documented in this encounter [facility] 12-19-2022 Nurse Note No cardiac complaints today. Clara Weathers MA documented in this encounter [facility] 09-27-2022 Miscellaneous Notes Mr. Karimi needs follow up appointment with RONA OJEDA in about 3 months after undergoing cardioversion today. Lamar Bazzi MD September 27, 2022 11:58 AM documented in this encounter [facility] 09-22-2022 Miscellaneous Notes 09/05/22 INR- 2.7 09/12/22 INR- 2.4 09/19/22 INR- 3.0 09/26/22 INR next INR scheduled Scheduled to had cardioversion with Dr. Bazzi on 09/27/22 - pt remains therapeutic. Sharmaine Velez RN Pt's name has been added to [facility] procedure board. Sharmaine Velez RN Patient returned call to [facility] to confirm date for cardioversion with Dr. Bazzi on 09/27. Reviewed procedure instructions with patient; patient verbalizes understanding to all instructions. Nella Coffey LPN Patient is scheduled for a Cardioversion on 09/[address] Bazzi. The hospital will call the day before between 2-5pm with your arrival time. Patient should not eat or drink after midnight the day before the procedure. Patient will need a stacker driver when released from the hospital. Patient should continue to take medications as prescribed the morning of the procedure with just a sip of water unless otherwise instructed. Left message for Alfie Karimi to call back and confirm date & instructions Nadira Collins documented in this encounter [facility] 09-19-2022 Miscellaneous Notes Pt was previously dia for cardioversion but was not therapeutic on coumadin. Pt is now therapeutic. Can we get this dia for the pt. 08/22 2.2 08/29 2.0 09/05 2.7 5/ 2.4 09/19 3.0 documented in this encounter [facility] 08-30-2022 Miscellaneous Notes I called and s/w Alia RN at the [facility]. I informed her that he needs to be at 2.5 INR so he does not run the risk of being subtherapeutic on the day of procedure. She verbalized understanding and will relay the message to the nurse that manages his coumadin/INR. They will continue the weekly faxes. Marcy Leary RN documented in this encounter [facility] 08-24-2022 Miscellaneous Notes Faxed demographics to [employer]. Eduarda Santana LPN Maritza with [employer] is requesting demographics to be faxed to [phone]. Eduarda Santana LPN documented in this encounter [facility] 08-21-2022 Note HNO ID: [id number] Author: Lucas Blanc Service: ? Author Type: Physician Type: Progress Notes Filed: 2022 9:42 AM Note Text: Initial Office Visit Subjective: This 56 year old male presents to clinic for diabetic foot check. Patient complains of pain in toenails of b/l feet. He states he has difficulty cutting his toenails. Patient admits to being diabetic for 14 years now. Patient +B/T/N in feet at this time. Patient -pain in legs when walking. He does report having bunion surgery by Dr. Torres several years ago. Now has separation of left 2nd and 3rd toe. No other pedal complaints at this time. No change in medications or medical history since last visit. PAIN EVALUATION No data found in the last 1 encounters. Hemoglobin A1C (%) Date Value 03/10/2017 10.2 11/25/2016 7.3 08/12/2016 10.3 03/18/2016 10.9 07/10/2015 9.6 PCP: Margot Mai MD PAST MEDICAL HISTORY Diagnosis Date Anticoagulant long-term use indication: stroke prevention atrial fibrillation At risk for stroke [id number] = 2 (CHF, DM) Atypical atrial flutter (HCC) 06/16/2022 Benign neoplasm of colon 06/12/2008 Tubular adenoma. Chronic fatigue syndrome Chronic HFrEF (heart failure with reduced ejection fraction) (HCC) Depressive disorder, not elsewhere classified 08/03/2012 YOUNG (dyspnea on exertion) Encounter for current long-term use of anticoagulants HTN (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) patient does not think he has HTN Morbid obesity due to excess calories (HCC) MARIELLA on CPAP 06/12/2008 2001. On CPAP. Persistent atrial fibrillation (HCC) symptomatic, possibly contributing to dilated cardiomyopathy; s/p catheter ablation 03/01/2022 Primary cardiomyopathy (HCC) Status post catheter ablation of atrial fibrillation balloon catheter cryoablation/PVAI for atrial fibrillation 03/01/2022; [facility] Dr. Bazzi Type II or unspecified type diabetes mellitus without mention of complication, uncontrolled 06/12/2008 Current Outpatient Medications Medication Sig dilTIAZem CR (TIAZAC, TAZTIA XT) 360 mg 24 hr capsule Take 1 capsule by mouth once daily. insulin glargine (LANTUS SOLOSTAR, BASAGLAR KWIKPEN) 100 unit/mL (3 mL) Inject 50 Units subcutaneously. Once daily insulin lispro (HUMALOG KWIKPEN) 100 unit/mL INJECT 5 TO 15 UNITS SUBCUTANEOUSLY WITH MEALS pen needle, diabetic 31 gauge x 15/64 ndle USE 4 NEEDLES DAILY warfarin (COUMADIN) 2 mg tablet 10 mg. carvedilol (COREG) 25 mg tablet Take 25 mg by mouth twice daily with meals. furosemide (LASIX) 40 mg tablet Take 40 mg by mouth twice daily. spironolactone (ALDACTONE) 25 mg tablet Take 25 mg by mouth once daily. potassium chloride (K-TAB) 10 mEq tablet Take 20 mEq by mouth once daily. buPROPion SR (ZYBAN SR; WELLBUTRIN SR) 150 mg 12 hr tablet Take 1 tablet by mouth twice daily. lisinopril (ZESTRIL) 2.5 mg tablet Take 1 tablet by mouth once daily. metFORMIN (GLUCOPHAGE) 1,000 mg tablet Take 1 tablet by mouth twice daily with meals. albuterol HFA (PROVENTIL HFA, VENTOLIN HFA) 90 mcg/actuation inhaler Inhale as instructed. ONETOUCH ULTRA2 METER USE TO CHECK BLOOD GLUCOSE insulin NPH injection (HumuLIN N,NovoLIN N) Insulin Nph Isoph U-100 Human (Novolin N Nph U-100 Insulin) 100 unit/mL suspension Active 20 UNIT SC TWICE A DAY August 13, 2021 11:00pm (Patient not taking: Reported on 08/21/2022) ONETOUCH DELICA PLUS LANCET 33 gauge USE TO CHECK GLUCOSE 3-4 TIMES DAILY warfarin (COUMADIN) 5 mg tablet 8 mg. Insulin Syringe-Needle U-100 0.3 mL 31 gauge x 16 USE WITH INSULIN ONCE DAILY blood sugar diagnostic (FREESTYLE INSULINX TEST STRIPS) test strip UAD to test blood glucose twice daily Dx. Code: E11.65 Current Facility-Administered Medications Medication Dose Route Frequency sodium chloride 0.9 % (flush) 10 mL (BD POSIFLUSH) 10 mL INTRAVENOUS DIRECTED PRN ALLERGIES Allergen Reactions Penicillins Rash Had reaction as a baby PAST SURGICAL HISTORY Procedure Laterality Date AFIB ABLATION/PULM VEIN ISOLATION 03/01/2022 balloon catheter cryoablation/PVAI for atrial fibrillation; [facility] Dr. Bazzi CARDIOVERSION, ELECTIVE, ELECTRICAL 10/27/2021 unsuccessful x2 [facility] CARDIOVERSION, ELECTIVE, ELECTRICAL 09/30/2021 [facility] - Unsuccessful COLONOSCOPY FLX DX W/COLLJ SPEC WHEN PFRMD 2004 Colonoscopy COLONOSCOPY FLX DX W/COLLJ SPEC WHEN PFRMD 10/14/2010 Colonoscopy/repeat in 10/2015 COLONOSCOPY FLX DX W/COLLJ SPEC WHEN PFRMD 10/29/2015 CORRECT BUNION,SIMPLE 05/14/[address] Velasquez right CORRECT BUNION,SIMPLE 05/31/2011 Bunion, Left ECHO 08/15/2021 EF 15%- [facility] ECHOCARDIOGRAM 01/20/2022 [facility]; see scanned documents LEFT HEART CATH,PERCUTANEOUS 11/25/2021 no significant CAD; LVEF 20%; [facility] REM LESIO TRUNK,ARM,LEG 1.1 -2.0CM 08/08/2008 Exc. ruptured emilie cyst right upper chest REPAIR INCISIONAL HERNIA,RE (more content not included)... [facility] 08-21-2022 Note HNO ID: [id number] Author: Christiane Roe LPN Service: ? Author Type: LICENSED NURSE Type: Progress Notes Filed: 2022 9:42 AM Note Text: AMB ROOMING INTAKE FLOWSHEET DATA Patient presents with: Left Foot - Diabetic Foot Care, Established Patient, Follow Up, Pain Right Foot - Diabetic Foot Care, Established Patient, Follow Up, Pain Christiane Roe LPN [facility] 08-15-2022 Miscellaneous Notes Patient's request for medication is as follows: Requested Prescriptions Pending Prescriptions Disp Refills dilTIAZem CR (TIAZAC, TAZTIA XT) 360 mg 24 hr capsule 90 capsule 3 Sig: Take 1 capsule by mouth once daily. This medication was d/c 07/06/2022 by DL. Your note 07/03/2022 states: The diltiazem dose had been increased at the outpatient appointment with Keny Pena APN, from 120 mg daily to 120 mg twice daily. I instructed Mr. Karimi to increase the dose to 360 mg daily, either all at once or increase either the AM or PM dose to 240 mg Pt is ok with taking 360 mg daily Prescription(s) as above. Please process accordingly. Marcy Leary RN documented in this encounter [facility] 07-25-2022 Miscellaneous Notes INR faxed from [facility] INR [facility]. 07/24/22 INR- 2.1. Sharmaine Velez RN Patient called having INR checked weekly at [place], INR on 07/10/22 was -2.3 INR on 07/17/22 was - 2.1, patient dosing was adjusted to increase the INR, will call next week with an updated. Sharmaine Vleez RN Received INR from [facility] regarding today INR of 2.1. Left message on patient's voicemail requesting a return call regarding next INR level. Sharmaine Velez RN documented in this encounter [facility] 07-03-2022 Note HNO ID: [id number] Author: Yvette Gagnon RN Service: ? Author Type: Registered Nurse Type: Nursing Progress Note Filed: 07/03/2022 11:10 AM Note Text: 1100 patient return to POD, procedure cancelled due to 1.9 inr. [facility] 07-03-2022 Note HNO ID: [id number] Author: Yvette Gagnon RN Service: ? Author Type: Registered Nurse Type: Nursing Progress Note Filed: 07/03/2022 9:01 AM Note Text: 0900 patient admitted to POD, pre procedure teaching at bedside. Review of medications with patient [facility] 06-12-2022 Miscellaneous Notes Spoke with patient who indicated he will have INR levels done weekly for the next three weeks. Will have INR levels faxed to our office for documentation prior to cardioversion with Dr. Bazzi on 07/03/22. Sharmaine Velez RN Pt's name has been added to [facility] procedure board. Sharmaine Velez RN Patient is scheduled for a Cardioversion on 07/[address] Bazzi. The hospital will call the day before between 2-5pm with your arrival time. Patient should not eat or drink after midnight the day before the procedure. Patient will need a stacker driver when released from the hospital. Patient should continue to take medications as prescribed the morning of the procedure with just a sip of water unless otherwise instructed. Spoke with patient and he verbalized understanding of all instructions Nadira Collins documented in this encounter [facility] 06-07-2022 Miscellaneous Notes Prior auth for Diltiazem CR 120mg BID completed on [employer] website. Claire Holder RN documented in this encounter [facility] 06-06-2022 Miscellaneous Notes Addended by: LAMAR BAZZI on: 06/06/2022 07:59 PM Modules accepted: Orders Reviewed. As discussed with Keny Pena CNP, I think electrical cardioversion is best option at this point. Procedure request submitted. Lamar Bazzi MD June 06, 2022 7:55 PM Eddi, Saw patient in office today for 3 months post PVI appointment. Twelve-lead showed likely atrial flutter with a ventricular rate of 127. We doubled his Cardizem CD from 120 mg daily to twice daily. Patient will need cardioverted sooner than later. Thanks, Keny Pena APRN.WILLIAM June 06, 2022 2:06 PM documented in this encounter [facility] 06-06-2022 Note HNO ID: [id number] Author: Keny Pena APRN.CNP Service: ? Author Type: Nurse Practitioner Type: Progress Notes Filed: 06/06/2022 2:04 PM Note Text: [facility] General Cardiology Electrophysiology PRIMARY CARE PHYSICIAN: Margot Mai [address] [place] [address] CHIEF COMPLAINT: 3 months post PVI. HISTORY OF PRESENT ILLNESS (copied from my previous office note on 02/27/2022): Mr. Karimi is a pleasant 56-year-old gentleman who presents today for history and physical update prior to PVI with Dr. Bazzi on 03/01/2022. Lengthy discussion was had regarding what to expect pre-/intra-/post ablation. Logistical overview of procedure was discussed. Patient aware he will receive general anesthesia and stay overnight in the R[facility]. Encourage patient to eat and drink well day before procedure. Nothing after midnight. Did request patient take his morning medications prior to coming in with small sips of water. Patient denies any angina, shortness of breath, worsening activity tolerance, or constitutional symptoms. Twelve-lead EKG showed atrial fibrillation with RVR with a rate of 123. Patient denies ever having any symptoms of atrial fibrillation. Vital signs stable. Risk and benefit discussion was had. Benefits include maintaining normal sinus rhythm. Very low risk of bleeding, stroke, or . Medications, allergies, and medical history reviewed with patient. Indicates I have answered all his questions he has nothing further at this time. Verbalizes a desire to move forward with procedure. Interval History: Mr. Karimi is a pleasant 56-year-old male who presents today for 3-month follow-up status post cryo PVI with Dr. Bazzi on 03/01/2022. Twelve-lead performed in office today showed likely atrial flutter with ventricular rate of 127. Possibly atrial tach. Patient was placed on diltiazem CR 120 mg daily by his general osd clerk Dr. Marcus. Overall patient reports he feels fine. He does indicate he is able to walk slightly further than before before he becomes short of breath. He denies angina, worsening to tolerance, shortness of breath, or constitutional symptoms. We discussed option of heading to the ED. However after conferring with my attending decision was made to make his long-acting Cardizem twice a day. Patient had been taking once a day in the evening. I requested when he gets home from his appointment to take 2 of his 120 mg tablets. Patient aware we will bring him back shortly for DCCV. 3-month post PVI testing pending. Patient is a [id number] of 3 secondary to 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, diabetes, and CHF. He takes Coumadin 8 mg on Tuesdays, Wednesdays, , and Fridays with 7 mg on all other days. He is also on Coreg 25 mg twice daily. Patient agreeable to follow-up in 3 months. PAST MEDICAL HISTORY Diagnosis Date Anticoagulant long-term use indication: stroke prevention atrial fibrillation At risk for stroke [id number] = 2 (CHF, DM) Benign neoplasm of colon 06/12/2008 Tubular adenoma. Chronic fatigue syndrome Chronic HFrEF (heart failure with reduced ejection fraction) (HCC) Depressive disorder, not elsewhere classified 08/03/2012 YOUNG (dyspnea on exertion) Encounter for current long-term use of anticoagulants HTN (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) patient does not think he has HTN Morbid obesity due to excess calories (HCC) MARIELLA on CPAP 06/12/20082000. On CPAP. Persistent atrial fibrillation (HCC) symptomatic, possibly contributing to dilated cardiomyopathy; s/p catheter ablation 03/01/2022 Primary cardiomyopathy (HCC) Status post catheter ablation of atrial fibrillation balloon catheter cryoablation/PVAI for atrial fibrillation 03/01/2022; JELENA Bazzi Type II or unspecified type diabetes mellitus without mention of complication, uncontrolled 06/12/2008 PAST SURGICAL HISTORY Procedure Laterality Date AFIB ABLATION/PULM VEIN ISOLATION 03/01/2022 balloon catheter cryoablation/PVAI for atrial fibrillation; JELENA Bazzi CARDIOVERSION, ELECTIVE, ELECTRICAL 10/27/2021 unsuccessful x2 [facility] CARDIOVERSION, ELECTIVE, ELECTRICAL 09/30/2021 [facility] - Unsuccessful COLONOSCOPY FLX DX W/COLLJ SPEC WHEN PFRMD 2004 Colonoscopy COLONOSCOPY FLX DX W/COLLJ SPEC WHEN PFRMD 10/14/2010 Colonoscopy/repeat in 10/2015 COLONOSCOPY FLX DX W/COLLJ SPEC WHEN PFRMD 10/29/2015 CORRECT BUNION,SIMPLE 05/14/[address] Velasquez right CORRECT BUNION,SIMPLE 05/31/2011 Bunion, Left ECHO 08/15/2021 EF 15%- [facility] ECHOCARDIOGRAM 01/20/2022 [facility]; see scanned documents LEFT HEART CATH,PERCUTANEOUS 11/25/2021 no significant CAD; LVEF 20%; [facility] REM LESIO TRUNK,ARM,LEG 1.1 -2.0CM 08/08/2008 Exc. ruptured emilie cyst right upper chest REPAIR INCISIONAL HERNIA,REDUCIBLE RPR UMBILICAL (more content not included)... [facility] 06-06-2022 History of Presen t illness Narrative [facility] Cardiology Electrophysiology PRIMARY CARE PHYSICIAN: Margot Mai [address] [place] [address] CHIEF COMPLAINT: 3 months post PVI. HISTORY OF PRESENT ILLNESS (copied from my previous office note on 02/27/2022): Mr. Karimi is a pleasant 56-year-old gentleman who presents today for history and physical update prior to PVI with Dr. Bazzi on 03/01/2022. Lengthy discussion was had regarding what to expect pre-/intra-/post ablation. Logistical overview of procedure was discussed. Patient aware he will receive general anesthesia and stay overnight in the [facility]. Encourage patient to eat and drink well day before procedure. Nothing after midnight. Did request patient take his morning medications prior to coming in with small sips of water. Patient denies any angina, shortness of breath, worsening activity tolerance, or constitutional symptoms. Twelve-lead EKG showed atrial fibrillation with RVR with a rate of 123. Patient denies ever having any symptoms of atrial fibrillation. Vital signs stable. Risk and benefit discussion was had. Benefits include maintaining normal sinus rhythm. Very low risk of bleeding, stroke, or . Medications, allergies, and medical history reviewed with patient. Indicates I have answered all his questions he has nothing further at this time. Verbalizes a desire to move forward with procedure. Interval History: Mr. Karimi is a pleasant 56-year-old male who presents today for 3-month follow-up status post cryo PVI with Dr. Bazzi on 03/01/2022. Twelve-lead performed in office today showed likely atrial flutter with ventricular rate of 127. Possibly atrial tach. Patient was placed on diltiazem CR 120 mg daily by his general osd clerk Dr. Marcus. Overall patient reports he feels fine. He does indicate he is able to walk slightly further than before before he becomes short of breath. He denies angina, worsening to tolerance, shortness of breath, or constitutional symptoms. We discussed option of heading to the ED. However after conferring with my attending decision was made to make his long-acting Cardizem twice a day. Patient had been taking once a day in the evening. I requested when he gets home from his appointment to take 2 of his 120 mg tablets. Patient aware we will bring him back shortly for DCCV. 3-month post PVI testing pending. Patient is a [id number] of 3 secondary to 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, diabetes, and CHF. He takes Coumadin 8 mg on Tuesdays, Wednesdays, , and Fridays with 7 mg on all other days. He is also on Coreg 25 mg twice daily. Patient agreeable to follow-up in 3 months. PAST MEDICAL HISTORY Diagnosis Date Anticoagulant long-term use indication: stroke prevention atrial fibrillation At risk for stroke [id number] = 2 (CHF, DM) Benign neoplasm of colon 06/12/2008 Tubular adenoma. Chronic fatigue syndrome Chronic HFrEF (heart failure with reduced ejection fraction) (HCC) Depressive disorder, not elsewhere classified 08/03/2012 YOUNG (dyspnea on exertion) Encounter for current long-term use of anticoagulants HTN (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) patient does not think he has HTN Morbid obesity due to excess calories (HCC) MARIELLA on CPAP 06/12/20082000. On CPAP. Persistent atrial fibrillation (HCC) symptomatic, possibly contributing to dilated cardiomyopathy; s/p catheter ablation 03/01/2022 Primary cardiomyopathy (HCC) Status post catheter ablation of atrial fibrillation balloon catheter cryoablation/PVAI for atrial fibrillation 03/01/2022; [facility] Dr. Bazzi Type II or unspecified type diabetes mellitus without mention of complication, uncontrolled 06/12/2008 PAST SURGICAL HISTORY Procedure Laterality Date AFIB ABLATION/PULM VEIN ISOLATION 03/01/2022 balloon catheter cryoablation/PVAI for atrial fibrillation; [facility] Dr. Bazzi CARDIOVERSION, ELECTIVE, ELECTRICAL 10/27/2021 unsuccessful x2 [facility] CARDIOVERSION, ELECTIVE, ELECTRICAL 09/30/2021 [facility] - Unsuccessful COLONOSCOPY FLX DX W/COLLJ SPEC WHEN PFRMD 2000, 2004 Colonoscopy COLONOSCOPY FLX DX W/COLLJ SPEC WHEN PFRMD 10/14/2010 Colonoscopy/repeat in 10/2015 COLONOSCOPY FLX DX W/COLLJ SPEC WHEN PFRMD 10/29/2015 CORRECT BUNION,SIMPLE 05/14/[address] Velasquez right CORRECT BUNION,SIMPLE 05/31/2011 Bunion, Left ECHO 08/15/2021 EF 15%- [facility] ECHOCARDIOGRAM 01/20/2022 [facility]; see scanned documents LEFT HEART CATH,PERCUTANEOUS 11/25/2021 no significant CAD; LVEF 20%; [facility] REM LESIO TRUNK,ARM,LEG 1.1 -2.0CM 08/08/2008 Exc. ruptured emilie cyst right upper chest REPAIR INCISIONAL HERNIA,REDUCIBLE RPR UMBILICAL HRNA 5 YRS/> REDUCIBLE 05/14/2000 Hernia repair, umbilical >5yr Social History Tobacco Use Smoking status: Former Packs/day: 1.00 Years: 47.00 Pack years: 47.00 Types: Cigarettes Start date: 1974 Quit date: 08/11/2021 Years since quittin.8 Smokeless tobacco: Never Substance Use Topics Alcohol use: Yes Comment: on occasion. Drug use: No Family History Problem Relation Age of Onset Stroke Mother COPD Mother Colon Cancer Father Heart Sister he's not sure, something involving an implant ? pacemaker No Known Problems Sister Alcohol abuse Brother Alcohol abuse Brother No Known Problems Brother Heart Failure Maternal Grandmother Diabetes Paternal Grandmother ALLERGIES Allergen Reactions Penicillins Rash Had reaction as a baby MEDICATIONS: insulin glargine (LANTUS SOLOSTAR U-100 INSULIN) 100 unit/mL (3 mL)^Inject 50 Units subcutaneously. Once daily^Disp: ^Rfl: dilTIAZem CR (TIAZAC, TAZTIA XT) 120 mg 24 hr capsule^Take 120 mg by mouth once daily.^Disp: ^Rfl: warfarin (COUMADIN) 2 mg tablet^2 mg.^Disp: ^Rfl: warfarin (COUMADIN) 5 mg tablet^5 mg.^Disp: ^Rfl: carvedilol (COREG) 25 mg tablet^Take 25 mg by mouth twice daily with meals.^Disp: ^Rfl: furosemide (LASIX) 40 mg tablet^Take 40 mg by mouth twice daily.^Disp: ^Rfl: spironolactone (ALDACTONE) 25 mg tablet^Take 25 mg by mouth once daily.^Disp: ^Rfl: Insulin Syringe-Needle U-100 0.3 mL 31 gauge x 09/26 ^USE WITH INSULIN ONCE DAILY^Disp: ^Rfl: potassium chloride (K-TAB) 10 mEq tablet^Take 20 mEq by mouth once daily.^Disp: ^Rfl: buPROPion SR (ZYBAN SR; WELLBUTRIN SR) 150 mg 12 hr tablet^Take 1 tablet by mouth twice daily.^Disp: 180 tablet^Rfl: 1 lisinopril (ZESTRIL) 2.5 mg tablet^Take 1 tablet by mouth once daily.^Disp: 90 tablet^Rfl: 1 metFORMIN (GLUCOPHAGE) 1,000 mg tablet^Take 1 tablet by mouth twice daily with meals.^Disp: 180 tablet^Rfl: 1 blood sugar diagnostic (FREESTYLE INSULINX TEST STRIPS) test strip^UAD to test blood glucose twice daily Dx. Code: E11.65^Disp: 200 Strip^Rfl: 3 NOVOLIN N NPH U-100 INSULIN 100 unit/mL injection^INJECT 20 UNITS IN THE MORNING AND EVENING, APPROX. 12 HOURS APART^Disp: ^Rfl: warfarin (COUMADIN) 4 mg tablet^Take 8 mg by mouth once daily.^Disp: ^Rfl: glimepiride (AMARYL) 4 mg tablet^Take 1 tablet by mouth twice daily with meals.^Disp: 180 tablet^Rfl: 1 REVIEW OF SYSTEMS: Review of Systems Constitutional: Negative for chills, fatigue and fever. Respiratory: Negative for apnea, cough, chest tightness, shortness of breath and wheezing. Cardiovascular: Negative for chest pain, palpitations and leg swelling. Gastrointestinal: Negative for abdominal distention, abdominal pain, constipation, diarrhea, nausea and vomiting. Genitourinary: Negative for difficulty urinating, dysuria and hematuria. Musculoskeletal: Negative for arthralgias. Neurological: Negative for dizziness, weakness, light-headedness and headaches. Psychiatric/Behavioral: Negative for agitation, behavioral problems, confusion and suicidal ideas. PHYSICAL EXAMINATION: BP 118/82 Pulse 131 Ht 6' 2 (1.88m) Wt 340 lb (154.2kg) SpO2 98% BMI 43.63 kg/(m^2). Physical Exam Constitutional: Appearance: He is obese. Cardiovascular: Rate and Rhythm: Tachycardia present. Pulses: Normal pulses. Radial pulses are 2+ on the right side and 2+ on the left side. Posterior tibial pulses are 2+ on the right side and 2+ on the left side. Heart sounds: No murmur heard. No friction rub. No gallop. Comments: Likely atrial flutter with a ventricular rate of 127. Pulmonary: Effort: Pulmonary effort is normal. Breath sounds: Normal breath sounds. Abdominal: General: Bowel sounds are normal. Palpations: Abdomen is soft. Musculoskeletal: Right lower leg: Edema present. Left lower leg: Edema present. Comments: Bilateral nonpitting dependent edema of lower extremities. Skin: General: Skin is warm and dry. Neurological: Mental Status: He is alert and oriented to person, place, and time. Psychiatric: Mood and Affect: Mood normal. Behavior: Behavior normal. CARDIOVASCULAR MEDICINE TESTING: EKG 03/02/2022 Normal sinus rhythm with a ventricular rate of 68. MI 196. QRS 92. QT/QTc 432/459. Echo 08/15/2021 Moderately dilated left ventricle. Estimated EF 15%. 3-month post PVI testing pending. I have reviewed the post PVI EKG as well as pre PVI echo. PLAN AND RECOMMENDATIONS: ASSESSMENT/PLAN: 1. Status post catheter ablation of atrial fibrillation - ICD9: V45.89, ICD10: Z98.890 (primary diagnosis) Patient underwent cryo PVI with Dr. Bazzi on 03/01/2022. 3-month post testing pending. Patient is underwent multiple cardioversions in the past with most recent in October 2021. That particular episode was unsuccessful x2 attempts at [facility]. Current treatment regimen includes warfarin 8 mg daily and Coreg 25 mg twice daily. [id number] of 3 secondary to CHF, 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, and type 2 diabetes. 2. Chronic HFrEF (heart failure with reduced ejection fraction) (HCC) - ICD9: 428.22, ICD10: I50.22 Pre PVI echo from August 2021 revealed an ejection fraction of 15%. Heart failure regimen includes Lasix 40 mg twice daily, spironolactone 25 mg daily, and Coreg 25 mg twice daily. 3. Persistent atrial fibrillation (HCC) - ICD9: 427.31, ICD10: I48.19 As above. 4. At risk for stroke - ICD9: V15.89, ICD10: Z91.89 As above. Return in about 3 months (around 09/04/2022) for Follow up with Dr. Bazzi. . Keny Pena APRN.GRADER OPERATOR documented in this encounter [facility] 06-06-2022 Nurse Note Patient denies any cardiac complaints or symptoms. Nella Coffey LPN documented in this encounter [facility] 06-06-2022 Note HNO ID: [id number] Author: Agueda Richmond Yarn Examiner Service: ? Author Type: Yarn Examiner Type: Nursing Progress Note Filed: 06/06/2022 11:11 AM Note Text: Holter monitor applied. Pt verbalized understanding of monitor use / diary. [facility] 06-06-2022 Nurse Note Holter monitor applied. Pt verbalized understanding of monitor use / diary. documented in this encounter [facility] 03-08-2022 Miscellaneous Notes Post PVAI orders pended for signature - office will call to schedule documented in this encounter [facility] 02-27-2022 History of Presen t illness Narrative [facility] Cardiology Electrophysiology PRIMARY CARE PHYSICIAN: Magrot Mai MD [id number] [facility] [place] [address] CHIEF COMPLAINT: History and physical update prior to PVI with Dr. Bazzi on 03/01/2022. HISTORY OF PRESENT ILLNESS (copied from Dr. Bazzi's office note on 01/02/2022): Mr. Karimi is a 56 year old male who presents today for evaluation of atrial fibrillation, referral from Dr. Marcus. Mr. Karimi states that he began experiencing shortness of breath at the end of last summer, progressively worsening and then by August this year was gasping for air very short of breath. He was experiencing exertional shortness of breath, then shortness of breath at rest, along with intermittent palpitations. He thought perhaps he had pulmonary condition, given his history of smoking for about 46 years (he quit 08/11/2021). In 08/2021 he was found to have severe dilated cardiomyopathy with heart failure, LVEF 15%, and also found to have atrial fibrillation. He states he was treated with amiodarone since about that time in August 2021, and underwent electrical cardioversion 09/2021 but this failed to restore sinus rhythm. Another attempt in 10/2021 also failed. The amiodarone was discontinued at that time. A heart cath in 11/2021 revealed no significant CAD. He states compliance with prescribed CPAP therapy for sleep apnea, feels better and more rested when he uses it. He is referred for evaluation for the treatment options. 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 I have confirmed and edited as necessary, the PFSH and ROS obtained by others. Interval History: Mr. Karimi is a pleasant 56-year-old gentleman who presents today for history and physical update prior to PVI with Dr. Bazzi on 03/01/2022. Lengthy discussion was had regarding what to expect pre-/intra-/post ablation. Logistical overview of procedure was discussed. Patient aware he will receive general anesthesia and stay overnight in the [facility]. Encourage patient to eat and drink well day before procedure. Nothing after midnight. Did request patient take his morning medications prior to coming in with small sips of water. Patient denies any angina, shortness of breath, worsening activity tolerance, or constitutional symptoms. Twelve-lead EKG showed atrial fibrillation with RVR with a rate of 123. Patient denies ever having any symptoms of atrial fibrillation. Vital signs stable. Risk and benefit discussion was had. Benefits include maintaining normal sinus rhythm. Very low risk of bleeding, stroke, or . Medications, allergies, and medical history reviewed with patient. Indicates I have answered all his questions he has nothing further at this time. Verbalizes a desire to move forward with procedure. PAST MEDICAL HISTORY Diagnosis Date Anticoagulant long-term use indication: stroke prevention atrial fibrillation At risk for stroke [id number] = 2 (CHF, DM) Benign neoplasm of colon 06/12/2008 Tubular adenoma. Chronic fatigue syndrome Chronic HFrEF (heart failure with reduced ejection fraction) (HCC) Depressive disorder, not elsewhere classified 08/03/2012 YOUNG (dyspnea on exertion) Encounter for current long-term use of anticoagulants HTN (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) patient does not think he has HTN Morbid obesity due to excess calories (HCC) MARIELLA on CPAP 06/12/2008 2001. On CPAP. Persistent atrial fibrillation (HCC) Primary cardiomyopathy (HCC) Type II or unspecified type diabetes mellitus without mention of complication, uncontrolled 06/12/2008 PAST SURGICAL HISTORY Procedure Laterality Date CARDIOVERSION, ELECTIVE, ELECTRICAL 10/27/2021 unsuccessful x2 [facility] CARDIOVERSION, ELECTIVE, ELECTRICAL 09/30/2021 [facility] - Unsuccessful COLONOSCOPY FLX DX W/COLLJ SPEC WHEN PFRMD 2004 Colonoscopy COLONOSCOPY FLX DX W/COLLJ SPEC WHEN PFRMD 10/14/2010 Colonoscopy/repeat in 10/2015 COLONOSCOPY FLX DX W/COLLJ SPEC WHEN PFRMD 10/29/2015 CORRECT BUNION,SIMPLE 05/14/[address] Velasquez right CORRECT BUNION,SIMPLE 05/31/2011 Bunion, Left ECHO 08/15/2021 EF 15%- [facility] ECHOCARDIOGRAM 01/20/2022 [facility]; see scanned documents LEFT HEART CATH,PERCUTANEOUS 11/25/2021 no significant CAD; LVEF 20%; [facility] REM LESIO TRUNK,ARM,LEG 1.1 -2.0CM 08/08/2008 Exc. ruptured emilie cyst right upper chest REPAIR INCISIONAL HERNIA,REDUCIBLE RPR UMBILICAL HRNA 5 YRS/> REDUCIBLE 05/14/2000 Hernia repair, umbilical >5yr Social History Tobacco Use Smoking status: Former Packs/day: 1.00 Years: 47.00 Pack years: 47.00 Types: Cigarettes Start date: 1974 Quit date: 08/11/2021 Years since quittin.5 Smokeless tobacco: Never Substance Use Topics Alcohol use: Yes Comment: on occasion. Drug use: No Family History Problem Relation Age of Onset Stroke Mother COPD Mother Colon Cancer Father Heart Sister he's not sure, something involving an implant ? pacemaker No Known Problems Sister Alcohol abuse Brother Alcohol abuse Brother No Known Problems Brother Heart Failure Maternal Grandmother Diabetes Paternal Grandmother ALLERGIES Allergen Reactions Penicillins Rash Had reaction as a baby MEDICATIONS: carvedilol (COREG) 25 mg tablet Take 25 mg by mouth twice daily with meals. furosemide (LASIX) 40 mg tablet Take 40 mg by mouth twice daily. NOVOLIN N NPH U-100 INSULIN 100 unit/mL injection INJECT 20 UNITS IN THE MORNING AND EVENING, APPROX. 12 HOURS APART spironolactone (ALDACTONE) 25 mg tablet Take 25 mg by mouth once daily. warfarin (COUMADIN) 4 mg tablet Take 8 mg by mouth once daily. Insulin Syringe-Needle U-100 0.3 mL 31 gauge x 5/16 USE WITH INSULIN ONCE DAILY potassium chloride (K-TAB) 10 mEq tablet Take 20 mEq by mouth once daily. buPROPion SR (ZYBAN SR; WELLBUTRIN SR) 150 mg 12 hr tablet Take 1 tablet by mouth twice daily. glimepiride (AMARYL) 4 mg tablet Take 1 tablet by mouth twice daily with meals. lisinopril (ZESTRIL) 2.5 mg tablet Take 1 tablet by mouth once daily. metFORMIN (GLUCOPHAGE) 1,000 mg tablet Take 1 tablet by mouth twice daily with meals. blood sugar diagnostic (FREESTYLE INSULINX TEST STRIPS) test strip UAD to test blood glucose twice daily Dx. Code: E11.65 REVIEW OF SYSTEMS: Review of Systems Constitutional: Negative for chills, fatigue and fever. Respiratory: Negative for apnea, cough, chest tightness, shortness of breath and wheezing. Cardiovascular: Negative for chest pain, palpitations and leg swelling. Gastrointestinal: Negative for abdominal distention, abdominal pain, constipation, diarrhea, nausea and vomiting. Genitourinary: Negative for difficulty urinating, dysuria and hematuria. Musculoskeletal: Negative for arthralgias. Neurological: Negative for dizziness, weakness, light-headedness and headaches. Psychiatric/Behavioral: Negative for agitation, behavioral problems, confusion and suicidal ideas. PHYSICAL EXAMINATION: BP 105/75 Pulse 123 Resp 18 Ht 6' 2 (1.88m) Wt 336 lb (152.4kg) SpO2 97% BMI 43.12 kg/(m^2). Physical Exam Constitutional: Appearance: Normal appearance. He is obese. Cardiovascular: Rate and Rhythm: Tachycardia present. Rhythm irregular. Pulses: Normal pulses. Radial pulses are 2+ on the right side and 2+ on the left side. Heart sounds: Heart sounds not distant. No murmur heard. Comments: AF with RVR with ventricular rate of 123. Pulmonary: Effort: Pulmonary effort is normal. Breath sounds: Normal breath sounds. Abdominal: General: Bowel sounds are normal. Palpations: Abdomen is soft. Musculoskeletal: Comments: Bilateral nonpitting dependent edema. Skin: General: Skin is warm and dry. Neurological: Mental Status: He is alert and oriented to person, place, and time. Psychiatric: Mood and Affect: Mood normal. Behavior: Behavior normal. CARDIOVASCULAR MEDICINE TESTING: EKG 10/10/2021 Atrial fibrillation with RVR with a ventricular rate of 124. QRS 0.92. QT/QTc 0.338/0.485. External echocardiogram 08/15/2021 Estimated ejection fraction 15%. Severe global hypokinesis of the left ventricle. Cardiac catheterization 11/25/2021 No significant coronary disease. Dr. Marcus. I have personally reviewed the Electrocardiogram, Echocardiogram, and cath report. PLAN AND RECOMMENDATIONS: ASSESSMENT/PLAN: 1. Persistent atrial fibrillation (HCC) - ICD9: 427.31, ICD10: I48.19 (primary diagnosis) Current treatment regimen includes Coreg 25 mg twice daily as well as Coumadin 8 mg on Tuesdays and Wednesdays with 7 mg on all other days. Echo as well as cardiac catheterization results noted. Lengthy discussion was had regarding what to expect pre-/intra-/post procedure. Medications, allergies, and medical history was reviewed with the patient. He verbalized a desire to move forward with procedure. 2. Chronic HFrEF (heart failure with reduced ejection fraction) (HCC) - ICD9: 428.22, ICD10: I50.22 Most recent echo revealed an ejection fraction of 15% as well as severe global hypokinesis of the left ventricle. 3. At risk for stroke - ICD9: V15.89, ICD10: Z91.89 Chads Vascor of 2 secondary to CHF and diabetes. Remains anticoagulated on Coumadin 8 mg on Tuesdays and Wednesdays with 7 mg on all other days. 4. MARIELLA on CPAP - ICD9: 327.23, V46.8, ICD10: G47.33, Z99.89 Patient is compliant with CPAP therapy. 5. Obesity, Class III, BMI 40-49.9 (morbid obesity) (HCC) - ICD9: 278.01, ICD10: E66.01 BMI today listed at 43.14. Return for Hospital to call tomorrow with what time to show up pre procedure on 03/01.. Keny Pena APRN.WILLIAM documented in this encounter [facility] 02-27-2022 Nurse Note Patient denies any new cardiac concerns or symptoms. documented in this encounter [facility] 02-20-2022 Miscellaneous Notes Patient is scheduled for a PVAI Ablation with Dr. Bazzi on 03/01. This procedure will require an overnight stay. Please return our call with 72 hours to confirm your procedure and receive your instructions. If we do not hear from you your procedure will be postponed until next available date. Left message Nadria Collins Patient is scheduled for a PVAI Ablation on 03/01/[address] Bazzi. The hospital will call the day before between 2-5pm with your arrival time. Patient should not eat or drink after midnight the day before the procedure. Patient will need a stacker driver when released from the hospital. You will stay overnight for observation. Patient should continue to take medications as prescribed the morning of the procedure with just a sip of water unless otherwise instructed. H&P update on 02/27 at 11am with Keny Pena documented in this encounter [facility] 01-26-2022 Miscellaneous Notes Pt returned call informed him of Dr Louie's recommendations for his INR levels. Pt verbalized understanding. Pt only concern was that he had not been dia yet. I advised him his tentative date is for 03/08. No further issues or concerns. Marcy Leary RN Images from the original note were not included. Left message on patient's voicemal requesting a return call regarding Dr. Bazzi's message and recommendations. Office phone number provided. Will fax Dr. Bazzi's note to [facility] who is monitoring INR levels. JANETTE Tidwell MD You; Claire Holder RN 19 hours ago (2:48 PM) Let him know that for the next few weeks prior to the procedure he should try to be 2.5 or higher, which is different than the usual goal of 2.0 - 3.0. We recommend this so that patients do not hover near the low end of the therapeutic range and then have a low value below 2.0. If he has INR < 2.0 on the day of the procedure we would need to cancel. So we recommend boosting the warfarin for INR values < 2.5 so we avoid possibility of being < 2.0. Lamar Bazzi MD January 25, 2022 2:48 PM INR level from [facility], tentative procedure date with Dr. Bazzi on 03/08/22. 01/10/22-2.4 01/17/22- 2.2 Sharmaine Velez RN documented in this encounter [facility] 01-02-2022 Nurse Note Patient denies any cardiac issues or symptoms. documented in this encounter [facility] 01-02-2022 History of Presen t illness Narrative PRIMARY CARE PHYSICIAN: Margot Mai MD [address] [place] [address] REFERRING PHYSICIAN: Lazaro Marcus MD ([facility]) [address] [place] [address] Patient Care Team: Margot Mai as PCP - General (Family Practice) Lazaro Marcus as Specialty Cryptographic Machine Operator (Cardiology) CHIEF COMPLAINT: Evaluation of arrhythmia HISTORY OF PRESENT ILLNESS: Mr. Karimi is a 56 year old male who presents today for evaluation of atrial fibrillation, referral from Dr. Marcus. Mr. Karimi states that he began experiencing shortness of breath at the end of last summer, progressively worsening and then by August this year was gasping for air very short of breath. He was experiencing exertional shortness of breath, then shortness of breath at rest, along with intermittent palpitations. He thought perhaps he had pulmonary condition, given his history of smoking for about 46 years (he quit 08/11/2021). In 08/2021 he was found to have severe dilated cardiomyopathy with heart failure, LVEF 15%, and also found to have atrial fibrillation. He states he was treated with amiodarone since about that time in August 2021, and underwent electrical cardioversion 09/2021 but this failed to restore sinus rhythm. Another attempt in 10/2021 also failed. The amiodarone was discontinued at that time. A heart cath in 11/2021 revealed no significant CAD. He states compliance with prescribed CPAP therapy for sleep apnea, feels better and more rested when he uses it. He is referred for evaluation for the treatment options. 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 I have confirmed and edited as necessary, the PFSH and ROS obtained by others. PAST MEDICAL HISTORY Diagnosis Date Anticoagulant long-term use indication: stroke prevention atrial fibrillation At risk for stroke [id number] = 2 (CHF, DM) Benign neoplasm of colon 06/12/2008 Tubular adenoma. Chronic fatigue syndrome Chronic HFrEF (heart failure with reduced ejection fraction) (HCC) Depressive disorder, not elsewhere classified 08/03/2012 YOUNG (dyspnea on exertion) Encounter for current long-term use of anticoagulants HTN (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) patient does not think he has HTN Morbid obesity due to excess calories (HCC) MARIELLA on CPAP 06/12/2008 2001. On CPAP. Persistent atrial fibrillation (HCC) Primary cardiomyopathy (HCC) Type II or unspecified type diabetes mellitus without mention of complication, uncontrolled 06/12/2008 PAST SURGICAL HISTORY Procedure Laterality Date CARDIOVERSION, ELECTIVE, ELECTRICAL 10/27/2021 unsuccessful x2 [facility] CARDIOVERSION, ELECTIVE, ELECTRICAL 09/30/2021 [facility] - Unsuccessful COLONOSCOPY FLX DX W/COLLJ SPEC WHEN PFRMD 2004 Colonoscopy COLONOSCOPY FLX DX W/COLLJ SPEC WHEN PFRMD 10/14/2010 Colonoscopy/repeat in 10/2015 COLONOSCOPY FLX DX W/COLLJ SPEC WHEN PFRMD 10/29/2015 CORRECT BUNION,SIMPLE 05/14/[address] Velasquez right CORRECT BUNION,SIMPLE 05/31/2011 Bunion, Left ECHO 2021 EF 15%- [facility] LEFT HEART CATH,PERCUTANEOUS 11/25/2021 Normal Coronary Arteries, [facility] LESIO TRUNK,ARM,LEG 1.1 -2.0CM 08/08/2008 Exc. ruptured emilie cyst right upper chest REPAIR INCISIONAL HERNIA,REDUCIBLE RPR UMBILICAL HRNA 5 YRS/> REDUCIBLE 05/14/2000 Hernia repair, umbilical >5yr SOCIAL HISTORY Social History Tobacco Use Smoking status: Former Packs/day: 1.00 Years: 47.00 Pack years: 47.00 Types: Cigarettes Start date: 1974 Quit date: 08/11/2021 Years since quittin.3 Smokeless tobacco: Never Substance Use Topics Alcohol use: Yes Comment: on occasion. Drug use: No FAMILY HISTORY Problem Relation Age of Onset Stroke Mother COPD Mother Colon Cancer Father Heart Sister he's not sure, something involving an implant ? pacemaker No Known Problems Sister Alcohol abuse Brother Alcohol abuse Brother No Known Problems Brother Heart Failure Maternal Grandmother Diabetes Paternal Grandmother ALLERGIES: ALLERGIES Allergen Reactions Penicillins Rash Had reaction as a baby MEDICATIONS: carvedilol (COREG) 25 mg tablet Take 25 mg by mouth twice daily with meals. furosemide (LASIX) 40 mg tablet Take 40 mg by mouth twice daily. NOVOLIN N NPH U-100 INSULIN 100 unit/mL injection INJECT 20 UNITS IN THE MORNING AND EVENING, APPROX. 12 HOURS APART spironolactone (ALDACTONE) 25 mg tablet Take 25 mg by mouth once daily. warfarin (COUMADIN) 4 mg tablet Take 8 mg by mouth once daily. Insulin Syringe-Needle U-100 0.3 mL 31 gauge x 5/16 USE WITH INSULIN ONCE DAILY potassium chloride (K-TAB) 10 mEq tablet Take 20 mEq by mouth once daily. buPROPion SR (ZYBAN SR; WELLBUTRIN SR) 150 mg 12 hr tablet Take 1 tablet by mouth twice daily. glimepiride (AMARYL) 4 mg tablet Take 1 tablet by mouth twice daily with meals. lisinopril (ZESTRIL) 2.5 mg tablet Take 1 tablet by mouth once daily. metFORMIN (GLUCOPHAGE) 1,000 mg tablet Take 1 tablet by mouth twice daily with meals. blood sugar diagnostic (FREESTYLE INSULINX TEST STRIPS) test strip UAD to test blood glucose twice daily Dx. Code: E11.65 REVIEW OF SYSTEMS: Review of Systems Constitutional: Positive for malaise/fatigue. Negative for chills, fever and weight loss. Respiratory: Positive for shortness of breath (exertional). Negative for cough, hemoptysis and sputum production. Cardiovascular: Positive for palpitations and leg swelling. Negative for chest pain, orthopnea and PND. Gastrointestinal: Negative for abdominal pain, blood in stool, nausea and vomiting. Genitourinary: Negative for hematuria. Neurological: Negative for dizziness and loss of consciousness. PHYSICAL EXAMINATION: BP 116/80 Pulse 65 Resp 18 Ht 6' 2 (1.88m) Wt 336 lb (152.4kg) SpO2 96[room air]% BMI 43.12 kg/(m^2). Physical Exam Vitals reviewed. Constitutional: General: He is not in acute distress. Appearance: He is obese. HENT: Head: Normocephalic and atraumatic. Cardiovascular: Rate and Rhythm: Tachycardia present. Rhythm irregularly irregular. Heart sounds: Normal heart sounds, S1 normal and S2 normal. No murmur heard. No friction rub. Pulmonary: Effort: Pulmonary effort is normal. No respiratory distress. Breath sounds: Normal breath sounds. No wheezing, rhonchi or rales. Abdominal: General: Bowel sounds are normal. Palpations: Abdomen is soft. Musculoskeletal: Cervical back: Neck supple. Right lower le+ Pitting Edema present. Left lower le+ Pitting Edema present. Skin: General: Skin is warm and dry. Neurological: General: No focal deficit present. Mental Status: He is alert and oriented to person, place, and time. Psychiatric: Mood and Affect: Mood normal. Behavior: Behavior normal. Thought Content: Thought content normal. CARDIOVASCULAR MEDICINE TESTING: Electrocardiogram: Atrial fibrillation with rapid ventricular response, average 124 bpm; incomplete right bundle branch block QRS duration 92 ms; QTC 485 ms; nonspecific ST and T wave abnormality I have personally reviewed the Electrocardiogram. ASSESSMENT/PLAN: 1. Persistent atrial fibrillation (HCC) - ICD9: 427.31, ICD10: I48.19 (primary diagnosis) 2. At risk for stroke - ICD9: V15.89, ICD10: Z91.89 3. Anticoagulant long-term use - ICD9: V58.61, ICD10: Z79.01 4. Primary cardiomyopathy (HCC) - ICD9: 425.4, ICD10: I42.9 5. Chronic HFrEF (heart failure with reduced ejection fraction) ([facility]) - ICD9: 428.22, ICD10: I50.22 6. MARIELLA on CPAP - ICD9: 327.23, V46.8, ICD10: G47.33, Z99.89 7. Obesity, Class III, BMI 40-49.9 (morbid obesity) ([facility]) - ICD9: 278.01, ICD10: E66.01 IMPRESSION: Mr. Karimi has symptomatic persistent atrial fibrillation refractory to medical therapy including antiarrhythmic drug (amiodarone). The antiarrhythmic drug options are severely limited due to the cardiomyopathy and heart failure. At his young age, leaving him in atrial fibrillation is not desirable and he is experiencing bothersome symptoms attributable to the arrhythmia. Therefore, catheter ablation is indicated and he would be a reasonably good candidate. Working against us to do at least a moderate degree would be the obesity, although he does state compliance with prescribed CPAP therapy which is important. But overall he seems to be an appropriate candidate for catheter ablation for the atrial fibrillation. I had a detailed discussion with Mr. Karimi regarding my evaluation and recommendations. After our discussion, Mr. Karimi expressed his understanding and I answered all his questions to his apparent satisfaction. He agrees to proceed with catheter ablation. INFORMED CONSENT The risks, benefits and anticipated outcomes of the procedure, the risks and benefits of the alternatives to the procedure and the roles and tasks of the personnel to be involved were discussed with the patient. Consent for the procedure and agreement to proceed has been obtained. I verify that I personally obtained the consent. PLAN AND RECOMMENDATIONS: Proceed with scheduling of atrial fibrillation catheter ablation --- likely balloon catheter cryoablation/PVAI. The procedure is performed without interruption of the oral anticoagulation (warfarin) --- the INR needs to be therapeutic for 3 weeks prior to the procedure and on the day of the procedure. Would avoiding hovering near the low end of therapeutic range (2.0) -- target INR 2.5 - 3.0 please. Avoid supratherapeutic INR values, an INR value > 4.0 on the day of the procedure would likely result in cancellation of the procedure. An updated echocardiogram would be prudent to reassess ventricular systolic function and chamber dimensions. Lamar Bazzi MD 01/02/2022 Medical Decision Making: Problems: Moderate: 1+ chronic illnesses with change Data: Unique source(s) for external note(s) reviewed: 3+ Unique test result(s) reviewed: 3+ Unique test(s) ordered: 1 Risk: Moderate: Moderate risk from testing/treatment, Drug management and Decision on minor surgery w/ risk factors Medical Decision Making Level: 4 - Moderate documented in this encounter [facility] 11-28-2021 Miscellaneous Notes Patient waiting on Financial Clearance. If approved - ok to schedule with Dr Bazzi as new patient - Referral from Dr Marcus for persistant afib & cardiomyopathy documented in this encounter [facility] documented as of this encounter (statuses as of 01/03/2022) [facility] History of Past illness Narrative* Problem Noted Date Resolved Date Tobacco use disorder 05/17/2012 12/31/2021 Other acquired deformity of toe 05/29/2011 09/29/2011 Hallux valgus (acquired) 05/29/2011 012 Abnormality of gait 05/29/2011 09/29/2011 Personal history of colonic polyps 10/03/2010 09/29/2011 Ingrowing nail 04/12/2009 09/19/2010 Sebaceous cyst 07/20/2008 09/19/2010 documented as of this encounter (statuses as of 01/26/2022) [facility] History of Past illness Narrative* Problem Noted Date Resolved Date Tobacco use disorder 05/17/2012 12/31/2021 Other acquired deformity of toe 05/29/2011 09/29/2011 Hallux valgus (acquired) 05/29/2011 012 Abnormality of gait 05/29/2011 09/29/2011 Personal history of colonic polyps 10/03/2010 09/29/2011 Ingrowing nail 04/12/2009 09/19/2010 Sebaceous cyst 07/20/2008 09/19/2010 documented as of this encounter (statuses as of 02/20/2022) [facility] History of Past illness Narrative* Problem Noted Date Resolved Date Tobacco use disorder 05/17/2012 12/31/2021 Other acquired deformity of toe 05/29/2011 09/29/2011 Hallux valgus (acquired) 05/29/2011 012 Abnormality of gait 05/29/2011 09/29/2011 Personal history of colonic polyps 10/03/2010 09/29/2011 Ingrowing nail 04/12/2009 09/19/2010 Sebaceous cyst 07/20/2008 09/19/2010 documented as of this encounter (statuses as of 02/27/2022) [facility] History of Past illness Narrative* Problem Noted Date Resolved Date Tobacco use disorder 05/17/2012 12/31/2021 Other acquired deformity of toe 05/29/2011 09/29/2011 Hallux valgus (acquired) 05/29/2011 012 Abnormality of gait 05/29/2011 09/29/2011 Personal history of colonic polyps 10/03/2010 09/29/2011 Ingrowing nail 04/12/2009 09/19/2010 Sebaceous cyst 07/20/2008 09/19/2010 documented as of this encounter (statuses as of 03/08/2022) [facility] History of Past illness Narrative* Problem Noted Date Resolved Date Tobacco use disorder 05/17/2012 12/31/2021 Other acquired deformity of toe 05/29/2011 09/29/2011 Hallux valgus (acquired) 05/29/2011 012 Abnormality of gait 05/29/2011 09/29/2011 Personal history of colonic polyps 10/03/2010 09/29/2011 Ingrowing nail 04/12/2009 09/19/2010 Sebaceous cyst 07/20/2008 09/19/2010 documented as of this encounter (statuses as of 06/06/2022) [facility] History of Past illness Narrative* Problem Noted Date Resolved Date Tobacco use disorder 05/17/2012 12/31/2021 Other acquired deformity of toe 05/29/2011 09/29/2011 Hallux valgus (acquired) 05/29/2011 012 Abnormality of gait 05/29/2011 09/29/2011 Personal history of colonic polyps 10/03/2010 09/29/2011 Ingrowing nail 04/12/2009 09/19/2010 Sebaceous cyst 07/20/2008 09/19/2010 documented as of this encounter (statuses as of 06/06/2022) [facility] History of Past illness Narrative* Problem Noted Date Resolved Date Tobacco use disorder 05/17/2012 12/31/2021 Other acquired deformity of toe 05/29/2011 09/29/2011 Hallux valgus (acquired) 05/29/2011 012 Abnormality of gait 05/29/2011 09/29/2011 Personal history of colonic polyps 10/03/2010 09/29/2011 Ingrowing nail 04/12/2009 09/19/2010 Sebaceous cyst 07/20/2008 09/19/2010 documented as of this encounter (statuses as of 06/07/2022) [facility] History of Past illness Narrative* Problem Noted Date Resolved Date Tobacco use disorder 05/17/2012 12/31/2021 Other acquired deformity of toe 05/29/2011 09/29/2011 Hallux valgus (acquired) 05/29/2011 012 Abnormality of gait 05/29/2011 09/29/2011 Personal history of colonic polyps 10/03/2010 09/29/2011 Ingrowing nail 04/12/2009 09/19/2010 Sebaceous cyst 07/20/2008 09/19/2010 documented as of this encounter (statuses as of 06/07/2022) [facility] History of Past illness Narrative* Problem Noted Date Resolved Date Tobacco use disorder 05/17/2012 12/31/2021 Other acquired deformity of toe 05/29/2011 09/29/2011 Hallux valgus (acquired) 05/29/2011 012 Abnormality of gait 05/29/2011 09/29/2011 Personal history of colonic polyps 10/03/2010 09/29/2011 Ingrowing nail 04/12/2009 09/19/2010 Sebaceous cyst 07/20/2008 09/19/2010 documented as of this encounter (statuses as of 06/12/2022) [facility] History of Past illness Narrative* Problem Noted Date Resolved Date Tobacco use disorder 05/17/2012 12/31/2021 Other acquired deformity of toe 05/29/2011 09/29/2011 Hallux valgus (acquired) 05/29/2011 012 Abnormality of gait 05/29/2011 09/29/2011 Personal history of colonic polyps 10/03/2010 09/29/2011 Ingrowing nail 04/12/2009 09/19/2010 Sebaceous cyst 07/20/2008 09/19/2010 documented as of this encounter (statuses as of 07/25/2022) [facility] History of Past illness Narrative* Problem Noted Date Resolved Date Tobacco use disorder 05/17/2012 12/31/2021 Other acquired deformity of toe 05/29/2011 09/29/2011 Hallux valgus (acquired) 05/29/2011 012 Abnormality of gait 05/29/2011 09/29/2011 Personal history of colonic polyps 10/03/2010 09/29/2011 Ingrowing nail 04/12/2009 09/19/2010 Sebaceous cyst 07/20/2008 09/19/2010 documented as of this encounter (statuses as of 08/15/2022) [facility] History of Past illness Narrative* Problem Noted Date Resolved Date Tobacco use disorder 05/17/2012 12/31/2021 Other acquired deformity of toe 05/29/2011 09/29/2011 Hallux valgus (acquired) 05/29/2011 012 Abnormality of gait 05/29/2011 09/29/2011 Personal history of colonic polyps 10/03/2010 09/29/2011 Ingrowing nail 04/12/2009 09/19/2010 Sebaceous cyst 07/20/2008 09/19/2010 documented as of this encounter (statuses as of 2022) [facility] History of Past illness Narrative* Problem Noted Date Resolved Date Tobacco use disorder 05/17/2012 12/31/2021 Other acquired deformity of toe 05/29/2011 09/29/2011 Hallux valgus (acquired) 05/29/2011 012 Abnormality of gait 05/29/2011 09/29/2011 Personal history of colonic polyps 10/03/2010 09/29/2011 Ingrowing nail 04/12/2009 09/19/2010 Sebaceous cyst 07/20/2008 09/19/2010 documented as of this encounter (statuses as of 08/30/2022) [facility] History of Past illness Narrative* Problem Noted Date Resolved Date Tobacco use disorder 05/17/2012 12/31/2021 Other acquired deformity of toe 05/29/2011 09/29/2011 Hallux valgus (acquired) 05/29/2011 012 Abnormality of gait 05/29/2011 09/29/2011 Personal history of colonic polyps 10/03/2010 09/29/2011 Ingrowing nail 04/12/2009 09/19/2010 Sebaceous cyst 07/20/2008 09/19/2010 documented as of this encounter (statuses as of 08/31/2022) [facility] History of Past illness Narrative* Problem Noted Date Resolved Date Tobacco use disorder 05/17/2012 12/31/2021 Other acquired deformity of toe 05/29/2011 09/29/2011 Hallux valgus (acquired) 05/29/2011 012 Abnormality of gait 05/29/2011 09/29/2011 Personal history of colonic polyps 10/03/2010 09/29/2011 Ingrowing nail 04/12/2009 09/19/2010 Sebaceous cyst 07/20/2008 09/19/2010 documented as of this encounter (statuses as of 09/19/2022) [facility] History of Past illness Narrative* Problem Noted Date Resolved Date Tobacco use disorder 05/17/2012 12/31/2021 Other acquired deformity of toe 05/29/2011 09/29/2011 Hallux valgus (acquired) 05/29/2011 012 Abnormality of gait 05/29/2011 09/29/2011 Personal history of colonic polyps 10/03/2010 09/29/2011 Ingrowing nail 04/12/2009 09/19/2010 Sebaceous cyst 07/20/2008 09/19/2010 documented as of this encounter (statuses as of 09/22/2022) [facility] History of Past illness Narrative* Problem Noted Date Resolved Date Tobacco use disorder 05/17/2012 12/31/2021 Other acquired deformity of toe 05/29/2011 09/29/2011 Hallux valgus (acquired) 05/29/2011 012 Abnormality of gait 05/29/2011 09/29/2011 Personal history of colonic polyps 10/03/2010 09/29/2011 Ingrowing nail 04/12/2009 09/19/2010 Sebaceous cyst 07/20/2008 09/19/2010 documented as of this encounter (statuses as of 09/27/2022) [facility] History of Past illness Narrative* Problem Noted Date Diagnosed Date Resolved Date Tobacco use disorder 05/17/2012 022 Other acquired deformity of toe 05/29/2011 09/29/2011 Hallux valgus (acquired) 05/29/2011 Abnormality of gait 05/29/2011 09/29/19 12 Personal history of colonic polyps 10/03/2010 09/29/2011 Ingrowing nail 04/12/2009 09/19/2010 Sebaceous cyst 07/20/2008 09/19/2010 documented as of this encounter (statuses as of 12/19/2022) [facility] History of Past illness Narrative* Problem Noted Date Diagnosed Date Resolved Date Tobacco use disorder 05/17/2012 022 Other acquired deformity of toe 05/29/2011 09/29/2011 Hallux valgus (acquired) 05/29/2011 Abnormality of gait 05/29/2011 09/29/19 12 Personal history of colonic polyps 10/03/2010 09/29/2011 Ingrowing nail 04/12/2009 09/19/2010 Sebaceous cyst 07/20/2008 09/19/2010 documented as of this encounter (statuses as of 12/28/2022) [facility] History of Past illness Narrative* Problem Noted Date Diagnosed Date Resolved Date Tobacco use disorder 05/17/2012 022 Other acquired deformity of toe 05/29/2011 09/29/2011 Hallux valgus (acquired) 05/29/2011 Abnormality of gait 05/29/2011 09/29/19 12 Personal history of colonic polyps 10/03/2010 09/29/2011 Ingrowing nail 04/12/2009 09/19/2010 Sebaceous cyst 07/20/2008 09/19/2010 documented as of this encounter (statuses as of 01/09/2023) [facility] History of Past illness Narrative* Problem Noted Date Diagnosed Date Resolved Date Tobacco use disorder 05/17/2012 022 Other acquired deformity of toe 05/29/2011 09/29/2011 Hallux valgus (acquired) 05/29/2011 Abnormality of gait 05/29/2011 09/29/19 12 Personal history of colonic polyps 10/03/2010 09/29/2011 Ingrowing nail 04/12/2009 09/19/2010 Sebaceous cyst 07/20/2008 09/19/2010 documented as of this encounter (statuses as of 04/09/2023) [facility] History of Past illness Narrative* Problem Noted Date Diagnosed Date Resolved Date Tobacco use disorder 05/17/2012 022 Other acquired deformity of toe 05/29/2011 09/29/2011 Hallux valgus (acquired) 05/29/2011 Abnormality of gait 05/29/2011 09/29/19 12 Personal history of colonic polyps 10/03/2010 09/29/2011 Ingrowing nail 04/12/2009 09/19/2010 Sebaceous cyst 07/20/2008 09/19/2010 documented as of this encounter (statuses as of 07/12/2023) [facility] History of Past illness Narrative* Problem Noted Date Diagnosed Date Resolved Date Tobacco use disorder 05/17/2012 022 Other acquired deformity of toe 05/29/2011 09/29/2011 Hallux valgus (acquired) 05/29/2011 Abnormality of gait 05/29/2011 09/29/19 12 Personal history of colonic polyps 10/03/2010 09/29/2011 Ingrowing nail 04/12/2009 09/19/2010 Sebaceous cyst 07/20/2008 09/19/2010 documented as of this encounter (statuses as of 07/13/2023) [facility] History of Past illness Narrative* Problem Noted Date Resolved Date Other acquired deformity of toe 05/29/2011 09/29/2011 Hallux valgus (acquired) 05/29/2011 012 Abnormality of gait 05/29/2011 09/29/2011 Personal history of colonic polyps 10/03/2010 09/29/2011 Ingrowing nail 04/12/2009 09/19/2010 Sebaceous cyst 07/20/2008 09/19/2010 documented as of this encounter (statuses as of 11/28/2021) [facility] Persistent atrial fibrillation (HCC)- Primary Atrial fibrillation At risk for stroke Other specified personal history presenting hazards to health Anticoagulant long-term use Long-term (current) use of anticoagulants Primary cardiomyopathy (HCC) Other primary cardiomyopathies Chronic HFrEF (heart failure with reduced ejection fraction) (HCC) MARIELLA on CPAP Obstructive sleep apnea (adult) (pediatric) Obesity, Class III, BMI 40-49.9 (morbid obesity) (HCC) Morbid obesity [facility] Diagnosis Persistent atrial fibrillation (HCC)- Primary Atrial fibrillation Chronic HFrEF (heart failure with reduced ejection fraction) (HCC) At risk for stroke Other specified personal history presenting hazards to health MARIELLA on CPAP Obstructive sleep apnea (adult) (pediatric) Obesity, Class III, BMI 40-49.9 (morbid obesity) (HCC) Morbid obesity Chronic HFrEF (heart failure with reduced ejection fraction) (HCC) Persistent atrial fibrillation (HCC) Atrial fibrillation Primary cardiomyopathy (HCC) Other primary cardiomyopathies MARIELLA on CPAP Obstructive sleep apnea (adult) (pediatric) At risk for stroke Other specified personal history presenting hazards to health Anticoagulant long-term use Long-term (current) use of anticoagulants Obesity, Class III, BMI 40-49.9 (morbid obesity) (HCC) Morbid [facility] Dyspnea, unspecified type- Primary Persistent atrial fibrillation (HCC) Atrial fibrillation [facility] Diagnosis Status post catheter ablation of atrial fibrillation- Primary Chronic HFrEF (heart failure with reduced ejection fraction) (HCC) Persistent atrial fibrillation (HCC) Atrial fibrillation At risk for stroke Other specified personal history presenting hazards to health [facility] Diagnosis Persistent atrial fibrillation (HCC)- Primary Atrial fibrillation Atypical atrial flutter (HCC) Atrial flutter Anticoagulant long-term use Long-term (current) use of anticoagulants [facility] Diagnosis Dyspnea, unspecified type Persistent atrial fibrillation (HCC) Atrial fibrillation [facility] Diagnosis Dyspnea, unspecified type Persistent atrial fibrillation (HCC) Atrial fibrillation [facility] Diagnosis Persistent atrial fibrillation (HCC)- Primary Atrial fibrillation [facility] Diagnosis Persistent atrial fibrillation (HCC)- Primary Atrial fibrillation Status post catheter ablation of atrial fibrillation Essential (primary) 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 Unspecified essential 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 MARIELLA on CPAP Obstructive sleep apnea (adult) (pediatric) At risk for stroke Other specified personal history presenting hazards to health Obesity, Class III, BMI 40-49.9 (morbid obesity) (HCC) Morbid obesity [facility] Diagnosis Other diabetic neurological complication associated with type 2 diabetes mellitus (HCC)- Primary Hyperkeratosis Acquired keratoderma Onychomycosis Dermatophytosis of nail Pain in toe of left foot Pain in limb Pain in toe of right foot Pain in limb [facility] Diagnosis Other diabetic neurological complication associated with type 2 diabetes mellitus (HCC)- Primary Onychomycosis Dermatophytosis of nail Pain in toe of left foot Pain in limb Pain in toe of right foot Pain in limb [facility] Diagnosis Other diabetic neurological complication associated with type 2 diabetes mellitus (HCC)- Primary Onychomycosis Dermatophytosis of nail Pain in toe of left foot Pain in limb Pain in toe of right foot Pain in limb Hallux valgus of left foot Ulcer of toe of left foot, with fat layer exposed (HCC) [facility] Diagnosis Ulcer of toe of left foot, with fat layer exposed (HCC) documented in this encounter [facility] for referral (narrative)* Outpatient Procedure (Routine) - Pending Review Specialty Diagnoses / Procedures Referred By Contac t Referred To Contact [facility] [place] Diagnoses Dyspnea, unspecified type Persistent atrial fibrillation (HCC) Procedures ECHO ECHO TTHRC R-T 2D W/WOM-MODE COMPL SPEC&COLR D Lamar Bazzi MD [address] [facility] [address] [place] [phone] [facility] [address] [place] [address] Referral ID Status Reason Start Date Expiration Date Visits Requested Visits Authorized [id number] Pending Review Auto-Generat ed Referral 06/01/2022 03/08/2023 1 1 [facility] for referral (narrative)* Outpatient Procedure (Routine) - Closed Specialty Diagnoses / Procedures Referred By Contac t Referred To Contact [facility] Diagnoses Dyspnea, unspecified type Persistent atrial fibrillation (HCC) Procedures ECHO ECHO TTHRC R-T 2D W/WOM-MODE COMPL SPEC&COLR D Lamar Bazzi MD [address] [facility] [address] [place] [phone] [facility] [address] [place] [address] Referral ID Status Reason Start Date Expiration Date V isits Requested Visits Authorized [id number] Closed Auto-Generate d Referral 06/01/2022 03/08/2023 1 1 [facility] for referral (narrative)* Outpatient Procedure (Routine) - Additional Clinical Info Needed Specialty Diagnoses / Procedures Referred By Contac t Referred To Contact [facility] [place] Diagnoses Persistent atrial fibrillation (HCC) Procedures ECHO ECHO TTHRC R-T 2D W/WOM-MODE COMPL SPEC&COLR D Keny Pena APRN.CNP [address] [place] [address] [facility] [place] [address] [place] [address] Referral ID Status Reason Start Date Expiration Date Visits Requested Visits Authorized [id number] Additional Clinical Info Needed Auto-Generat ed Referral 12/19/2022 12/19/2023 1 1 [facility] for referral (narrative)* Diagnostic Procedure Only (Routine) - Closed Specialty Diagnoses / Procedures Referred By Contac t Referred To Contact [facility] Diagnoses Ulcer of toe of left foot, with fat layer exposed (HCC) Procedures XR FOOT GENERAL 3V AP/LAT/OBL LEFT RADEX FOOT COMPLETE MINIMUM 3 VIEWS [facility] [address] [place] [address] [place] [id number] Referral ID Status Reason Start Date Expiration Date V isits Requested Visits Authorized [id number] Closed Auto-Generate d Referral 07/12/2023 08/10/2024 1 1 [facility] for visit Narrative* Outpatient Procedure (Routine) - Closed Specialty Diagnoses / Procedures Referred By Contac t Referred To Contact [facility] Diagnoses Dyspnea, unspecified type Persistent atrial fibrillation (HCC) Procedures ECHO ECHO TTHRC R-T 2D W/WOM-MODE COMPL SPEC&COLR Lamar Cha MD [address] [phone] [facility] [place] [address] [place] [address] Referral ID Status Reason Start Date Expiration Date V isits Requested Visits Authorized [id number] Closed Auto-Generate d Referral 06/01/2022 03/08/2023 1 1 [facility] for visit Narrative* Diagnostic Procedure Only (Routine) - Closed Specialty Diagnoses / Procedures Referred By Contac t Referred To Contact [facility] Diagnoses Ulcer of toe of left foot, with fat layer exposed (HCC) Procedures XR FOOT GENERAL 3V AP/LAT/OBL LEFT RADEX FOOT COMPLETE MINIMUM 3 VIEWS Christian[address]as [address] [place] [address] [place] [id number] Referral ID Status Reason Start Date Expiration Date V isits Requested Visits Authorized [id number] Closed Auto-Generate d Referral 07/12/2023 08/10/2024 1 1 [facility] Advance Directives No Advanced Directives Records FoundDocuments on File Type Date Recorded Patient Neurology Technician Expl anation Advance Directive(s) 10/29/2015 8:17 AM Summary Purpose Family History No Family History Records FoundNo Family History Records FoundNo Family History Records Found Medications Administered Section Inactive Administered Medications - up to 3 most recent administrations Medication Order MAR Action Action Date Dose Rate Site perflutren lipid microspheres 1.3 mL in NaCl (PF) 0.9% 10 mL injection (DEFINITY) INTRAVENOUS, DIRECTED NEEDED, 1 dose, Starting on Sun03/08/22 at 1941, Until Sun06/06/22 at 1045, Per Protocol - for use during ECHO procedure only, If no IV access, insert saline lock prior to administering contrast. Discontinue saline lock post exam. If patient has central line or IVAD, may access for administration according to line specific nursing protocol. Once exam is complete, flush line and de-access per line specific nursing protocol.Dilute 1.3 ml of Definity with 8.7 ml of preservative-free saline. Given 06/06/2022 10:45 AM EST 1.3 mL Arm, Right Additional Source Comments Source Comments (unrecognize d section and content) In the event this informatio n is protected by the Federal Confidentiality of Alcohol and Drug Abuse Patient Records regulations: The Federal rules restrict any use of the information to criminally investigate or prosecute any alcohol or drug abuse patient.[facility] the event this information is protected by the Federal Confidentiality of Alcohol and Drug Abuse Patient Records regulations: The Federal rules restrict any use of the information to criminally investigate or prosecute any alcohol or drug abuse patient.[facility] the event this information is protected by the Federal Confidentiality of Alcohol and Drug Abuse Patient Records regulations: The Federal rules restrict any use of the information to criminally investigate or prosecute any alcohol or drug abuse patient.[facility] the event this information is protected by the Federal Confidentiality of Alcohol and Drug Abuse Patient Records regulations: The Federal rules restrict any use of the information to criminally investigate or prosecute any alcohol or drug abuse patient.[facility] the event this information is protected by the Federal Confidentiality of Alcohol and Drug Abuse Patient Records regulations: The Federal rules restrict any use of the information to criminally investigate or prosecute any alcohol or drug abuse patient.[facility] the event this information is protected by the Federal Confidentiality of Alcohol and Drug Abuse Patient Records regulations: The Federal rules restrict any use of the information to criminally investigate or prosecute any alcohol or drug abuse patient.[facility] DaytonIn the event this information is protected by the Federal Confidentiality of Alcohol and Drug Abuse Patient Records regulations: The Federal rules restrict any use of the information to criminally investigate or prosecute any alcohol or drug abuse patient.[facility] DaytonIn the event this information is protected by the Federal Confidentiality of Alcohol and Drug Abuse Patient Records regulations: The Federal rules restrict any use of the information to criminally investigate or prosecute any alcohol or drug abuse patient.[facility] DaytonIn the event this information is protected by the Federal Confidentiality of Alcohol and Drug Abuse Patient Records regulations: The Federal rules restrict any use of the information to criminally investigate or prosecute any alcohol or drug abuse patient.[facility] DaytonIn the event this information is protected by the Federal Confidentiality of Alcohol and Drug Abuse Patient Records regulations: The Federal rules restrict any use of the information to criminally investigate or prosecute any alcohol or drug abuse patient.[facility] DaytonIn the event this information is protected by the Federal Confidentiality of Alcohol and Drug Abuse Patient Records regulations: The Federal rules restrict any use of the information to criminally investigate or prosecute any alcohol or drug abuse patient.[facility] DaytonIn the event this information is protected by the Federal Confidentiality of Alcohol and Drug Abuse Patient Records regulations: The Federal rules restrict any use of the information to criminally investigate or prosecute any alcohol or drug abuse patient.[facility] DaytonIn the event this information is protected by the Federal Confidentiality of Alcohol and Drug Abuse Patient Records regulations: The Federal rules restrict any use of the information to criminally investigate or prosecute any alcohol or drug abuse patient.[facility] DaytonIn the event this information is protected by the Federal Confidentiality of Alcohol and Drug Abuse Patient Records regulations: The Federal rules restrict any use of the information to criminally investigate or prosecute any alcohol or drug abuse patient.[facility] DaytonIn the event this information is protected by the Federal Confidentiality of Alcohol and Drug Abuse Patient Records regulations: The Federal rules restrict any use of the information to criminally investigate or prosecute any alcohol or drug abuse patient.[facility] DaytonIn the event this information is protected by the Federal Confidentiality of Alcohol and Drug Abuse Patient Records regulations: The Federal rules restrict any use of the information to criminally investigate or prosecute any alcohol or drug abuse patient.[facility] DaytonIn the event this information is protected by the Federal Confidentiality of Alcohol and Drug Abuse Patient Records regulations: The Federal rules restrict any use of the information to criminally investigate or prosecute any alcohol or drug abuse patient.[facility] DaytonIn the event this information is protected by the Federal Confidentiality of Alcohol and Drug Abuse Patient Records regulations: The Federal rules restrict any use of the information to criminally investigate or prosecute any alcohol or drug abuse patient.[facility] DaytonIn the event this information is protected by the Federal Confidentiality of Alcohol and Drug Abuse Patient Records regulations: The Federal rules restrict any use of the information to criminally investigate or prosecute any alcohol or drug abuse patient.[facility] DaytonIn the event this information is protected by the Federal Confidentiality of Alcohol and Drug Abuse Patient Records regulations: The Federal rules restrict any use of the information to criminally investigate or prosecute any alcohol or drug abuse patient.[facility] DaytonIn the event this information is protected by the Federal Confidentiality of Alcohol and Drug Abuse Patient Records regulations: The Federal rules restrict any use of the information to criminally investigate or prosecute any alcohol or drug abuse patient.[facility] DaytonIn the event this information is protected by the Federal Confidentiality of Alcohol and Drug Abuse Patient Records regulations: The Federal rules restrict any use of the information to criminally investigate or prosecute any alcohol or drug abuse patient.[facility] DaytonIn the event this information is protected by the Federal Confidentiality of Alcohol and Drug Abuse Patient Records regulations: The Federal rules restrict any use of the information to criminally investigate or prosecute any alcohol or drug abuse patient.[facility] DaytonIn the event this information is protected by the Federal Confidentiality of Alcohol and Drug Abuse Patient Records regulations: The Federal rules restrict any use of the information to criminally investigate or prosecute any alcohol or drug abuse patient.[facility] DaytonIn the event this information is protected by the Federal Confidentiality of Alcohol and Drug Abuse Patient Records regulations: The Federal rules restrict any use of the information to criminally investigate or prosecute any alcohol or drug abuse patient.[facility] DaytonIn the event this information is protected by the Federal Confidentiality of Alcohol and Drug Abuse Patient Records regulations: The Federal rules restrict any use of the information to criminally investigate or prosecute any alcohol or drug abuse patient.[facility] Reason for Visit (unrecogniz ed section and content) Reason Comments CARD 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 FOR A-FI B Reason Comments Results INR levels from [facility] Reason Comments Preparations For Procedures Reason Comments Cardiology Follow Up Atrial Fibrillation Reason Comments Orders Reason Comments Cardiology Follow Up S/P PVAI Reason Onset Date Comments Orders Treatment Planning 06/06/2022 Reason Comments 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 Diltiazem CR Pr ior Auth Reason Comments 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 Reason Onset Date Comments Follow Up 09/27/2022 Reason Comments CARD Follow Up 3 Month S/p ablation of a -fib Reason Comments Established Patient PVR follow up Reason Comments Results Reason Comments Established Patient Diabetic Foot Care Reason Comments Established Patient Diabetic Foot Care (unrecognized sect ion and content) No Status Records FoundNo Status Records FoundNo Status Records Found INFORMATION SOURCE (unrecogn ized section and content) DATE CREATED AUTHOR AUTHOR'S ORGANIZ ATION 03/26/2023 [facility] DATE CREATED AUTHOR AUTHOR'S ORGANIZ ATION 07/14/2023 [facility] Care Teams (unrecognized sec tion and content) Plastic Mould Maker Relationship Specialty Start Date End Date Margot Mai [address] [place] [address] PCP - General Family Practice 12/31/21 Angeline, Lazaro S [address] [place] [address] Specialty Cryptographic Machine Operator Cardiology 12/31/21 Plastic Mould Maker Relationship Specialty Start Date End Date Margot Mai [address] [place] [address] PCP - General Family Medicine 12/31/21 Angeline, Kewanna S [address] [place] [address] Specialty Cryptographic Machine Operator Cardiology 12/31/21 Plastic Mould Maker Relationship Specialty Start Date End Date Margot Mai [address] [place] [address] PCP - General Family Medicine 12/31/21 Angeline, Kewanna S [address] [place] [address] Specialty Cryptographic Machine Operator Cardiology 12/31/21 Plastic Mould Maker Relationship Specialty Start Date End Date Margot Mai [address] [place] [address] PCP - General Family Medicine 12/31/21 Angeline, Lazaro S [address] [place] [address] Specialty Cryptographic Machine Operator Cardiology 12/31/21 Plastic Mould Maker Relationship Specialty Start Date End Date Margot Mai MD [address] [place] [address] PCP - General Family Medicine 12/31/21 Angeline, Lazaro S [address] [place] [address] Specialty Cryptographic Machine Operator Cardiology 12/31/21 Plastic Mould Maker Relationship Specialty Start Date End Date Margot Mai MD [address] [place] [address] PCP - General Family Medicine 12/31/21 Angeline, Kewanna S [address] [place] [address] Specialty Cryptographic Machine Operator Cardiology 12/31/21 Plastic Mould Maker Relationship Specialty Start Date End Date Margot Mai MD [address] [place] [address] PCP - General Family Medicine 12/31/21 Angeline, Kewanna S [address] [place] [address] Specialty Cryptographic Machine Operator Cardiology 12/31/21 Plastic Mould Maker Relationship Specialty Start Date End Date Margot Mai MD [address] [place] [address] PCP - General Family Medicine 12/31/21 Angeline, Kewanna S [address] [place] [address] Specialty Cryptographic Machine Operator Cardiology 12/31/21 Plastic Mould Maker Relationship Specialty Start Date End Date Margot Mai MD [address] [place] [address] PCP - General Family Medicine 12/31/21 Angeline, Kewanna S [address] [place] [address] Specialty Cryptographic Machine Operator Cardiology 12/31/21 Plastic Mould Maker Relationship Specialty Start Date End Date Margot Mai MD [address] [place] [address] PCP - General Family Medicine 12/31/21 Angeline, Lazaro S [address] [place] [address] Specialty Cryptographic Machine Operator Cardiology 12/31/21 Plastic Mould Maker Relationship Specialty Start Date End Date Margot Mai MD [address] [place] [address] PCP - General Family Medicine 12/31/21 Angeline, Kewanna S [address] [place] [address] Specialty Cryptographic Machine Operator Cardiology 12/31/21 Plastic Mould Maker Relationship Specialty Start Date End Date Margot Mai MD [address] [place] [address] PCP - General Family Medicine 12/31/21 Angeline, Lazaro S [address] [place] [address] Specialty Cryptographic Machine Operator Cardiology 12/31/21 Plastic Mould Maker Relationship Specialty Start Date End Date Margot Mai MD [address] [place] [address] PCP - General Family Medicine 12/31/21 Angeline, Kewanna S [address] [place] [address] Specialty Cryptographic Machine Operator Cardiology 12/31/21 Plastic Mould Maker Relationship Specialty Start Date End Date Margot Mai MD [address] [place] [address] PCP - General Family Medicine 12/31/21 Lazaro Marcus [address] [place] [address] Specialty Cryptographic Machine Operator Cardiology 12/31/21 Plastic Mould Maker Relationship Specialty Start Date End Date Margot Mai MD [address] [place] [address] PCP - General Family Medicine 12/31/21 Lazaro Marcus [address] [place] [address] Specialty Cryptographic Machine Operator Cardiology 12/31/21 Plastic Mould Maker Relationship Specialty Start Date End Date Margot Mai MD [address] [place] [address] PCP - General Family Medicine 12/31/21 Lazaro Marcus MD [address] [place] [address] Specialty Cryptographic Machine Operator Cardiology 12/31/21 Plastic Mould Maker Relationship Specialty Start Date End Date Margot Mai MD [address] [place] [address] PCP - General Family Medicine 12/31/21 Lazaro Marcus MD [address] [place] [address] Specialty Cryptographic Machine Operator Cardiology 12/31/21 Plastic Mould Maker Relationship Specialty Start Date End Date Margot Mai MD [address] [place], [place] [id number] PCP - General Family Medicine 12/31/21 Lazaro Marcus MD [address] [place] [address] Specialty Cryptographic Machine Operator Cardiology 12/31/21 FOR RECORDS PERTAINING TO PATIENTS WHO ARE OR HAVE BEEN ENROLLED IN A CHEMICAL DEPENDENCY/SUBSTANCEABUSE PROGRAM, SOME INFORMATION MAY BE OMITTED. This clinical summary was aggregated from multiple sources. Caution should be exercised in using it in the provision of clinical care. This summary normalizes information from multiple sources, and as a consequence, information in this document may materially change the coding, format and clinical context of patient data. In addition, data may be omitted in some cases. CLINICAL DECISIONS SHOULD BE BASED ON THE PRIMARY CLINICAL RECORDS. [employer] provides no warranty or guarantee of the accuracy or completeness of information in this document.
[2023-07-26 14:32] LABS: Creatinine, Urine (random) < 13.00 mg/dL (NO RANGE EST.); Microalbumin,Random Urine < 5.0 mg/L (NO RANGE EST.)
== END | disposition home or self-care (01) ==
LOC: BFHLAB 09:34 → LABSPEC 09:36
PROVIDERS: PCP Family Medicine; Visit Provider Family Medicine
DX: E11.65 Type 2 diabetes mellitus with hyperglycemia (principal)
CPT/HCPCS: 82043; 82570

== ENCOUNTER → 2024-05-20 | Outpatient (CLI) | payer BC, SELFPAY ==
--- NOTE | 2024-05-20 14:52 | ECHOCS_ITS ---
Reason For Study: Arrhythmia Procedure This was a 2D Doppler, Color Flow transthoracic echocardiogram. Contrast injection was performed. The study was technically difficult. Exam performed in department. Left Ventricle Mild concentric left ventricular hypertrophy. Normal LV size. Borderline LV systolic function. Estimated LVEF 45%. Stage I diastolic dysfunction. Right Ventricle Normal right ventricle. Atria There is moderate biatrial dilatation. Mitral Valve Trivial mitral valve insufficiency. Tricuspid Valve Mild tricuspid valve insufficiency. Right ventricular systolic pressure estimated to be 43 mmHg. Aortic Valve Trisinus/trileaflet aortic valve. Mild focal aortic valve calcification. Pulmonic Valve The pulmonic valve is not well visualized. Great Vessels Mildly dilated aortic root. Pericardium/Pleural No pericardial effusion. Medication Diluted definity 3ml given slow IV push to enhance endocardial definition. MMode/2D Measurements & Calculations LVIDd: 4.7 cm IVSd: 1.3 cm asc Aorta Diam: 3.8 cm LVIDs: 3.3 cm LVPWd: 1.2 cm RVDd: 4.5 cm FS: 28.9 % LAV(MOD-bp): 55.5 ml LVAd ap4: 30.0 cm2 SV(MOD-sp4): 49.0 ml LAV(MOD-bp) Indexed: 21.2 ml/m2 LVLd ap4: 7.5 cm SI(MOD-sp4): 18.7 ml/m2 LAV(MOD-sp2): 70.5 ml EDV(MOD-sp4): 97.0 ml LAV(MOD-sp4): 43.0 ml EDV(sp4-el): 102.5 ml LVAs ap4: 19.2 cm2 LVLs ap4: 6.3 cm ESV(MOD-sp4): 47.9 ml ESV(sp4-el): 49.4 ml EF(MOD-sp4): 50.6 % EF(sp4-el): 51.8 % SV(sp4-el): 53.1 ml LA A4 area: 17.6 cm2 LA dimension(2D): 4.5 cm RA A4 area: 16.7 cm2 TAPSE: 2.0 cm Doppler Measurements & Calculations MV E max kvng: 110.4 cm/sec Lat Peak E' Kvng: 15.1 cm/sec Med Peak E' Kvng: 10.2 cm/sec E/E' lat: 7.3 E/E' med: 10.9 Ao V2 max: 110.9 cm/sec LV V1 max: 82.3 cm/sec PA V2 max: 78.6 cm/sec Ao max P.9 mmHg LV V1 max P.7 mmHg Ao V2 mean: 85.9 cm/sec Ao mean P.1 mmHg Ao V2 VTI: 19.0 cm TR max kvng: 266.6 cm/sec TR max P.4 mmHg ECHO/Echo Complete W/ Contrast Interpretation Summary The study was technically difficult. Mild concentric left ventricular hypertrophy. Borderline LV systolic function. Estimated LVEF 45%. Stage I diastolic dysfunct ion. Mild tricuspid valve insufficiency. Right ventricular systolic pressure estimated to be 43 mmHg. Mildly dilated aortic root. Ordering Physician: Buster Harvey Referring Physician: Margot Mai Performed By: Lala Lemons, JAIDEN, RVT
== END | disposition home or self-care (01) ==
LOC: CVS 14:50
PROVIDERS: PCP Family Medicine; Referring Provider Internal Medicine Cardiovascular Disease; Visit Provider Internal Medicine Cardiovascular Disease
DX: I48.92 Unspecified atrial flutter (principal); I48.19 Other persistent atrial fibrillation; Z98.890 Other specified postprocedural states; Z86.79 Personal history of other diseases of the circulatory system; R00.0 Tachycardia, unspecified
CPT/HCPCS: 93306; Q9957; A4216; C8929

== ENCOUNTER → 2024-07-09 | Outpatient (CLI) | payer BC, SELFPAY ==
--- NOTE | 2024-07-09 09:39 | RAD_ITS ---
PROCEDURE: CHEST PA AND LATERAL REASON FOR EXAM: AFib. Short of breath. TECHNIQUE: Frontal and lateral views of the chest. COMPARISON: 08/14/2021. FINDINGS: The heart size is borderline in size. Aortic calcifications are noted. Chronic increased interstitial markings are noted without evidence of focal consolidation, pleural effusion or pneumothorax. The visualized osseous structures demonstrate degenerative changes. RAD/Chest PA and Lateral IMPRESSION: Chronic increased interstitial markings are noted without evidence of focal con solidation, pleural effusion or pneumothorax. Findings are similar to the prior study. Correlate clinically to exclude conge stive heart failure with pulmonary edema versus chronic interstitial lung disease. Reading Location: [id number]
== END | disposition home or self-care (01) ==
LOC: MTRAD 09:38
PROVIDERS: PCP Family Medicine; Referring Provider Nurse Practitioner Family; Visit Provider Nurse Practitioner Family
DX: R06.02 Shortness of breath (principal)
CPT/HCPCS: 71046

== ENCOUNTER 2024-08-05 20:30 | Inpatient (IN) | payer BC, SELFPAY ==
[2024-08-05 20:31] VITALS: BP 127/85; PULSE 88; RESP 20; TEMP 36.1; O2SAT 98; BMI 37.0
[2024-08-05] MEDS: 0.9% Normal Saline (1000mL) 1,000 ML 1000 ML IV (21:21)
[2024-08-05 21:33] LABS: Hematocrit 44.9 % (40-54); Hemoglobin 15.1 g/dL (13.0-16.5); Mean Corp Hgb Conc 33.6 g/dL (32-36); Mean Corpuscular Hgb 27.8 pg (27.0-32.0); Mean Corpuscular Volume 82.5 fL (80-94); Mean Platelet Vol. 11.1 fl (6.2-12.0); POSITIVE COUNT YES; POSITIVE MORPHOLOGY YES; Platelet Count 207 K/mm3 (150-450); RBC Distribution Width CV 14.3 % (11.6-14.6); RBC Distribution Width SD 42.5 fl (35.1-43.9); Red Blood Count 5.44 M/mm3 (4.6-6.2); White Blood Count 7.7 K/mm3 (4.4-11.0)
--- NOTE | 2024-08-05 21:38 | EX.ED.GENINJ ---
HPI History of Present Illness Chief Complaint: Nausea/Vomiting/Diarrhea Narrative Narrative: Chief complaint and HPI: Nausea, vomiting, diarrhea. 58-year-old male with past medical history of proximal atrial fibrillation on warfarin, HFrEF, DM, COPD presents for evaluation of nausea, vomiting, diarrhea. Patient states on he ate an egg which he believes was bad as it tasted gross. 3 days ago he developed nonbloody diarrhea. Patient states it has become more dark in color today. He denies any recent antibiotic use. Patient states he is having some nausea and nonbloody emesis today. He denies any fever, chills, shortness of breath, chest pain, dysuria. States he has mild epigastric discomfort from vomiting. Review of systems: See HPI Medications: As listed on the chart Allergies: As listed on the chart PFSH: Per chart Vital signs: As listed on the chart. Reviewed. Physical exam: Gen: A&O x3, NAD Head: Normocephalic, atraumatic Eyes: No sclera icterus, conjunctiva clear ENT: Moist mucous membranes Neck: Trachea midline, No JVD CV: RRR, no murmurs, no peripheral edema Resp: Lungs CTA BL, no w/r/c GI: Abd soft, non-distended, non-tender, no r/r/g Rectal: Normal external examination. No evidence of hemorrhoids or fissures. Normal tone and sensation. No masses, fluctuance, or tenderness. No pain out of proportion. : No CVA tenderness Musc: Full ROM, no deformity Skin: Warm, dry Neuro: Alert, oriented, grossly intact, sensation intact Psych: Cooperative, appropriate mood and affect [facility] Medical History Wears glasses MRSA infection Insulin dependent diabetes mellitus Restless legs Former smoker CPAP (continuous positive airway pressure) dependence Sleep apnea History of echocardiogram Cardiology follow-up encounter History of atrial fibrillation Hx of colonic polyps Non-ischemic cardiomyopathy HFrEF (heart failure with reduced ejection fraction) Persistent atrial fibrillation prison current use of anticoagulant Essential 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 Atrial fibrillation with rapid ventricular response MARIELLA (obstructive sleep apnea) Diabetes COPD (chronic obstructive pulmonary disease) Home Medications ?Medication ?Instructions ?Recorded ?Last Taken ?Type bupropion HCl 150 mg tablet,12 hr 150 mg PO BID antidepressant 08/14/21 05/23/22 History sustained-release metformin 1,000 mg tablet 1,000 mg PO BID dm 08/14/21 05/23/22 History lisinopril 2.5 mg tablet 2.5 mg PO DAILY 05/22/22 05/24/22 History insulin glargine 100 unit/mL (3 30 unit subcut BID 05/17/23 Unknown History mL) subcutaneous pen (Lantus Solostar U-100 Insulin) diltiazem HCl 120 mg 120 mg PO DAILY #90 caps 09/24/23 Unknown Rx capsule,extended release 24 hr spironolactone 25 mg tablet See Rx Instructions .Route 09/24/23 Unknown Rx .COMPLEX #30 tabs potassium chloride 10 mEq 10 meq PO DAILY #90 tabs 07/18/24 Unknown Rx tablet,extended release furosemide 40 mg tablet 80 mg PO DAILY 08/05/24 Unknown History metoprolol tartrate 75 mg tablet 75 mg PO Q12H 08/05/24 Unknown History warfarin 2 mg tablet 2 mg PO WETH 08/05/24 Unknown History warfarin 5 mg tablet 10 mg PO DAILY 08/05/24 Unknown History Allergy/AdvReac Type Severity Reaction Status Date / Time Penicillins Allergy PT UNSURE Verified 08/05/24 20:31 OF REACTION Family History Other COPD (chronic obstructive pulmonary disease) Colon cancer Heart disease Lung cancer Testicular cancer Surgical History History of cardiac catheterization Status post cryoablation of arrhythmia (03/01/22) History of cardioversion (10/27/21) Bunion H/O hernia repair Social History Smoking Status: Former smoker alcohol intake: never substance use type: does not use caffeine: Yes Type: coffee Number of servings: 1 EXAM Physical Exam Const Vital Signs: 08/05/24 20:31 08/05/24 22:00 Temperature 97 F L Temperature Source Temporal Pulse Rate 88 74 Respiratory Rate 20 H 16 Blood Pressure 127/85 H 111/67 Blood Pressure Mean 99 81 Pulse Ox 98 97 Oxygen Delivery Method Room Air Room Air MDM MDM MDM Narrative Medical decision making narrative: 58-year-old male with past medical history of proximal atrial fibrillation on warfarin, HFrEF, DM, COPD presents for evaluation of nausea, vomiting, diarrhea. Differential diagnosis includes but is not limited to viral gastroenteritis, electrolyte abnormality, dehydration, GI bleed, other intra-abdominal pathology, UTI. Patient is abdominal exam is benign therefore do not think any imaging is needed at this time. NS bolus and Zofran ordered for symptoms. Laboratory workup ordered. On chart review, patient had a colonoscopy with Dr. Tamayo May 2022. At that time he had diverticulosis as well as multiple polyps. CBC without leukocytosis or anemia. CMP relatively unremarkable. Lipase unremarkable. UA negative for UTI. Patient's occult is positive. Given his history of diverticulosis with positive occult and vague abdominal pain we will get CT abdomen and pelvis. Will add on lactic acid and INR. Both are pending at this time.CT abdomen pelvis shows areas of increased density within the small and large bowel. May represent areas of active bleeding. Recommend GI input. Given CT abdomen pelvis findings, I spoke with GI physician, Dr. Brito. Given that patient's vital signs are stable, labs without anemia or elevated BUN to creatinine ratio, and no bright red blood per rectum suspect more of a small bleed than what CT abdomen pelvis read indicates. States this may be infectious from the possible bad egg that he ate. Does not recommend antibiotics as this could be Shigella. INR is still pending at this time. Plan will be for discharge home and follow-up in his office next week if INR unremarkable. Lactic acid unremarkable however INR is elevated at 5.3. On reevaluation, patient states his abdominal pain is improved although he states he has had 2 bowel movements here in the emergency department states they are less dark in color however given that patient has supratherapeutic INR with GI bleed and continued bowel movements I do feel patient would benefit from admission for observation. He is in agreement. He states he does not feel comfortable discharging home. Impression: 1. GI bleed, suspect infectious 2. Supratherapeutic INR on Coumadin 3. Mild dehydration Lab Data Labs: Laboratory Results - last 24 hr 08/05/24 08/05/24 08/05/24 21:20 22:45 23:20 WBC 7.7 RBC 5.44 Hgb 15.1 Hct 44.9 MCV 82.5 MCH 27.8 MCHC 33.6 RDW Std Deviation 42.5 RDW Coeff of Jett 14.3 Plt Count 207 MPV 11.1 Neut % (Auto) Not Reportable Absolute Neuts (auto) 4.9 Absolute Lymphs (auto) 1.54 Total Counted 100 Neutrophils % (Manual) 38 L Band Neutrophils % 26 H Lymphocytes % (Manual) 20 Monocytes % (Manual) 10 Eosinophils % (Manual) 2 Metamyelocytes % 1 Myelocytes % 3 H Differential Comment SCANNED Diff Path Review May foll Reactive Lymphocytes 2+ PT 50.1 H INR 5.3 H* Sodium 133 Potassium 3.4 Chloride 100 Carbon Dioxide 21.5 Anion Gap 12 BUN 19 Creatinine 0.96 Estim Creat Clear Calc 120.72 Est GFR (MDRD) Non-Af 92 BUN/Creatinine Ratio 20.0 Glucose 200 H Lactic Acid < 1.0 Calcium 7.7 Total Bilirubin 0.24 AST 12 ALT 9 Alkaline Phosphatase 93 Total Protein 6.5 Albumin 3.6 Globulin 2.8 Albumin/Globulin Ratio 1.3 Lipase 20 Urine Color Yellow Urine Clarity Clear Urine pH 6.0 Ur Specific Mobile 1.010 Urine Protein 30 H Urine Glucose (UA) Normal Urine Ketones Negative Urine Occult Blood 10 H Urine Nitrite Negative Urine Bilirubin Negative Urine Urobilinogen Normal Ur Leukocyte Esterase 25 H Urine RBC 0 SEEN Urine WBC 0 SEEN Ur Squamous Epith Cells 0 SEEN Urine Bacteria 0 SEEN Urine Mucus 0 SEEN Radiography Diagnostic Testing: Clinical Impression(s) from Imaging Studies Abdomen/Pelvis CT 08/05/24 22:08 IMPRESSION: Limited examination due to contrast bolus timing. There are areas of increased density within the small bowel and large bowel as described above. These may represent areas of active bleeding. Although multiphase CT scan of the abdomen may be helpful. In addition, nuclear medicine biliary scan may be helpful to delineate the exact location of the bleeding. Recommend GI input. Red Alert: Limited examination due to contrast bolus timing. There are areas of increased density within the small bowel and large bowel as described above. These may represent areas of active bleeding. Although multiphase CT scan of the abdomen may be helpful. In addition, nuclear medicine biliary scan may be helpful to delineate the exact location of the bleeding. Recommend GI input. The critical information above was relayed directly by me by telephone to Jose Juan Gotti on 08/05/2024 at 10:55 pm with readback verification. Reading Location: [facility] Discharge Plan Triage Chief Complaint: Nausea/Vomiting/Diarrhea ED Provider: Jose Juan Gotti Dx/Rx/DC Orders Prescriptions: No Action bupropion HCl 150 mg tablet sustained-release 12 hr 150 mg PO BID Patient Comments: TAKE 1 TABLET BY MOUTH TWICE DAILY metformin 1,000 mg tablet 1,000 mg PO BID Patient Comments: TAKE 1 TABLET BY MOUTH TWICE DAILY lisinopril 2.5 mg tablet 2.5 mg PO DAILY Patient Comments: TAKE 1 TABLET BY MOUTH ONCE DAILY insulin glargine [Lantus Solostar U-100 Insulin] 100 unit/mL (3 mL) insulin pen 30 unit SUBCUT BID Patient Comments: INJECT 30 UNITS in AM, and 30 UNITS in PM. metoprolol tartrate 75 mg tablet 75 mg PO Q12H furosemide 40 mg tablet 80 mg PO DAILY warfarin 2 mg tablet 2 mg PO WETH Protocol: Dose Management Condition: Sunday Dose/Route: 10 mg Instruction: 2 x 5 mg tablets Condition: Sunday Dose/Route: 10 mg Instruction: 2 x 5 mg tablets Condition: Sunday Dose/Route: 10 mg Instruction: 2 x 5 mg tablets Condition: Sunday Dose/Route: 12 mg Instruction: 1 x 2 mg tablet, 2 x 5 mg tablets Condition: Dose/Route: 12 mg Instruction: 1 x 2 mg tablet, 2 x 5 mg tablets Condition: Sunday Dose/Route: 10 mg Instruction: 2 x 5 mg tablets Condition: Sunday Dose/Route: 10 mg Instruction: 2 x 5 mg tablets Protocol Text: Adjustment Start Date: 06/07/23 INR Value: 3.2 INR Date: 04/28/23 Recheck Date: 06/08/23 Rx Instructions: 2 mg orally daily with a two 5 mg tablet to =12 mg on Sun/; or as directed warfarin 5 mg tablet 10 mg PO DAILY Protocol: Dose Management Condition: Sunday Dose/Route: 10 mg Instruction: 2 x 5 mg tablets Condition: Sunday Dose/Route: 10 mg Instruction: 2 x 5 mg tablets Condition: Sunday Dose/Route: 10 mg Instruction: 2 x 5 mg tablets Condition: Sunday Dose/Route: 12 mg Instruction: 1 x 2 mg tablet, 2 x 5 mg tablets Condition: Dose/Route: 12 mg Instruction: 1 x 2 mg tablet, 2 x 5 mg tablets Condition: Sunday Dose/Route: 10 mg Instruction: 2 x 5 mg tablets Condition: Sunday Dose/Route: 10 mg Instruction: 2 x 5 mg tablets Protocol Text: Adjustment Start Date: 06/07/23 INR Value: 3.2 INR Date: 04/28/23 Recheck Date: 06/08/23 Rx Instructions: Two 5 mg orally daily (10mg daily and 12mg on Sun/); as directed spironolactone 25 mg tablet See Rx Instructions .ROUTE .COMPLEX Qty: 30 12RF Dose Instruction: Take 1 tablet by mouth once daily Rx Instructions: Take 1 tablet by mouth once daily diltiazem HCl 120 mg capsule,extended release 24hr 120 mg PO DAILY Qty: 90 3RF potassium chloride 10 mEq tablet extended release 10 meq PO DAILY Qty: 90 3RF Primary Care Provider: Margot Mai Referrals: Margot Mai MD [Primary Care Provider] - Print Language: Bengali
[2024-08-05 21:39] LABS: Differential Indicated MANUAL DIFF
[2024-08-05] MEDS: Ondansetron 4 MG/2 ML Vial IV (21:45)
[2024-08-05 22:00] VITALS: BP 111/67; PULSE 74; RESP 16; O2SAT 97
[2024-08-05 22:02] LABS: ALB/GLOB Ratio 1.3 RATIO (0.9-2.4); AST(SGOT) 12 U/L (<=37); Alanine Aminotransfer ALT/SGPT 9 U/L (<=46); Albumin, Serum 3.6 g/dL (3.5-5.0); Alkaline Phosphatase 93 U/L (40-129); Anion Gap 12 (5-15); BUN 19 mg/dL (4-19); Calcium,Total 7.7 mg/dL (7.6-11.0); Carbon Dioxide 21.5 mmol/L (21.0-32.0); Chloride 100 mmol/L (98-108); Creatinine, Serum 0.96 mg/dL (0.70-1.20); EST Glomerular Filtration Rate 92 (>60); Estimated Creatinine Clearance 120.72 ml/min (50-250); Globulin 2.8 g/dL (2.2-4.2); Glucose 200 mg/dL (70-99); Lipase 20 U/L (13-75); Potassium 3.4 mmol/L (3.3-5.1); Protein, Total 6.5 g/dL (5.9-8.4); Sodium Level 133 mmol/L (133-145); Total Bilirubin 0.24 mg/dL (0.00-1.30)
--- NOTE | 2024-08-05 22:08 | CT_ITS ---
EXAM: CT of the abdomen and pelvis with IV contrast. CLINICAL HISTORY: GI bleed, diarrhea. COMPARISON: None. TECHNIQUE: CT of the abdomen was performed without IV contrast. Multiplanar reformats were obtained afterwards. FINDINGS: Calcified granuloma seen within the right lower lung zone. Otherwise the lung bases are clear. There is no free air within the abdomen or pelvis. The liver, gallbladder, spleen, adrenals, pancreas are within normal limits. 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 There is no hydronephrosis present. Urinary bladder is within normal limits. The prostate is nonenlarged. There is no bowel obstruction. Area of increased attenuation seen within the small bowel loop within the left lower abdominal quadrant best seen on image 34/158 and image 80/141. Similar-appearing area is also present within the sigmoid colon best seen on image 47/158. These findings may represent areas of active bleeding. The appendix is normal. Abdominal wall mesh is noted. Multilevel degenerative changes seen within the spine. CT/Abdomen/Pelvis W IV Cont ONLY IMPRESSION: Limited examination due to contrast bolus timing. There are areas of increased density within the small bowel and large bowel as described above. These may represent areas of active bleeding. Although mult iphase CT scan of the abdomen may be helpful. In addition, nuclear medicine biliary scan may be helpful to delineate the exact l ocation of the bleeding. Recommend GI input. Red Alert: Limited examination due to contrast bolus timing. There are areas o f increased density within the small bowel and large bowel as described above. These may represent areas of active bleeding. Although multiphase CT scan of the abdomen may be helpful. In addition, nuclear medicine biliary scan may be helpful to delin eate the exact location of the bleeding. Recommend GI input. The critical information above was relayed directly by me by telephone to Jose Juan Montez on 08/05/2024 at 10:55 pm with readback verification. Reading Location: [id number]
[2024-08-05 22:31] LABS: Prothrombin Time (Protime)PT. 50.1 SECONDS (11.7-14.9)
[2024-08-05 22:57] LABS: Bacteria 0 SEEN /hpf (None Seen); Mucous, Urine 0 SEEN /hpf (<or=2+); Squamous Epithelial Cells - UA 0 SEEN /hpf (0-5); White Blood Cells 0 SEEN /hpf (0-5)
[2024-08-05 22:58] LABS: Color, Urine Yellow (Yellow); Glucose, Dipstick Normal (Normal); Ketone-Dipstick Negative (Negative); Leukocyte Esterase-Dipstick 25 /ul (Negative); Nitrite-Dipstick Negative (Negative); Occult Blood-Urine 10 /ul (Negative); Protein-Dipstick 30 mg/dl (Negative); Urine Bilirubin Dipstick Negative (Negative); Urine Clarity Clear (Clear); Urine Urobilinogen Normal (Normal)
[2024-08-05 23:06] LABS: Red Blood Cells-Urine 0 SEEN /hpf (0-5)
[2024-08-05 23:31] LABS: Differential Comment SCANNED; Eosinophil 2 % (0-5); Lymphocyte 20 % (19-41); Metamyelocyte 1 % (0-1); Monocyte 10 % (0-10); Neutrophil-Segmented 38 % (47-70); Reactive Lymphocyte 2+; Total Cells Counted 100 (MANUAL DIFF)
[2024-08-05 23:32] LABS: Absolute Lymphocyte Count 1.54 X10^3/uL (0.83-4.51); Absolute Neutrophil Count 4.9 X10^3/uL (2.0-7.7); Myelocyte 3 % (0-0); Neutrophil-Band 26 % (0-5); Pathologist Review May foll
[2024-08-05 23:48] LABS: International Normalized Ratio 5.3
[2024-08-06] VITALS (8 sets, daily range): BP systolic 101–117; BP diastolic 56–74; PULSE 71–80; RESP 12–18; TEMP 36.4–37; O2SAT 95–99; BMI 38.6
[2024-08-06 00:02] LABS: Lactic Acid < 1.0 mmol/L (0.0-2.0)
--- NOTE | 2024-08-06 01:07 | PCM.HP.STD ---
[facility] - General General Date of Admission: 08/06/24 Date of Service: 08/06/24 Chief Complaint: Nausea, Vomiting and Bloody Diarrhea. HPI Narrative ALFIE KARIMI, is a 58 M with a past medical history of essential 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; on lisinopril, metoprolol, spironolactone and furosemide, obesity; with BMI of 37.1 this admission, MARIELLA; on CPAP, former tobacco abuse, DM-2; of unknown control on metformin and insulin glargine 30 units sq twice daily, history of paroxysmal atrial fibrillation/flutter; with history of failed DCCV (10/2021) and history of cryoablation (02/2022) on diltiazem and warfarin, history of chronic diastolic CHF; with preserved LVEF, history of nonischemic cardiomyopathy, RLS, history of MRSA on extremities (2020), depression; on bupropion twice daily, history of hernia; s/p repair and history of diverticulosis and multiple colon polyps; s/p colonoscopy by Dr. Tamayo in May 2022 who presents to [facility] ER complaining of nausea, vomiting and bloody diarrhea. Mr. Karimi reports his symptoms began 3 days ago after eating egg which tasted terrible with subsequent development of initially nonbloody diarrhea. Then on the evening of August 05, 2024 his stools became more dark in color. He also admits to mild epigastric discomfort due to nausea and bilious emesis earlier today but he denies bloody or coffee-ground emesis. He states he has persistent taste abnormality residual from his recent rotten egg ingestion that has lasted ~3 days. He denies recent antibiotic use or known sick contacts. He also denies associated fever, chills, chest pain, palpitations, heart racing shortness of breath, headache or rash. In the ER he was noted to have supratherapeutic INR of 5.3 present on admission with corresponding Hemoccult positive stools due to Adverse Drug Reaction to warfarin causing Bloody Diarrhea followed by a CT scan of the abdomen pelvis with IV contrast that revealed limited examination due to contrast bolus timing with increased density within the small bowel and large bowel which may represent areas of active bleeding with GI input recommended. He was then admitted to the PCU for ongoing care for a stay that is expected to extend beyond 2 midnights. [facility] Medical History Wears glasses MRSA infection Insulin dependent diabetes mellitus Restless legs Former smoker CPAP (continuous positive airway pressure) dependence Sleep apnea History of echocardiogram Cardiology follow-up encounter History of atrial fibrillation Hx of colonic polyps Non-ischemic cardiomyopathy HFrEF (heart failure with reduced ejection fraction) Persistent atrial fibrillation shelter current use of anticoagulant Essential 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 Atrial fibrillation with rapid ventricular response MARIELLA (obstructive sleep apnea) Diabetes COPD (chronic obstructive pulmonary disease) Home Medications ?Medication ?Instructions ?Recorded ?Last Taken ?Type bupropion HCl 150 mg tablet,12 hr 150 mg PO BID antidepressant 08/14/21 05/23/22 History sustained-release metformin 1,000 mg tablet 1,000 mg PO BID dm 08/14/21 05/23/22 History lisinopril 2.5 mg tablet 2.5 mg PO DAILY 05/22/22 05/24/22 History insulin glargine 100 unit/mL (3 30 unit subcut BID 05/17/23 Unknown History mL) subcutaneous pen (Lantus Solostar U-100 Insulin) diltiazem HCl 120 mg 120 mg PO DAILY #90 caps 09/24/23 Unknown Rx capsule,extended release 24 hr spironolactone 25 mg tablet See Rx Instructions .Route 09/24/23 Unknown Rx .COMPLEX #30 tabs potassium chloride 10 mEq 10 meq PO DAILY #90 tabs 07/18/24 Unknown Rx tablet,extended release furosemide 40 mg tablet 80 mg PO DAILY 08/05/24 Unknown History metoprolol tartrate 75 mg tablet 75 mg PO Q12H 08/05/24 Unknown History warfarin 2 mg tablet 2 mg PO WETH 08/05/24 Unknown History warfarin 5 mg tablet 10 mg PO DAILY 08/05/24 Unknown History Allergy/AdvReac Type Severity Reaction Status Date / Time Penicillins Allergy PT UNSURE Verified 08/05/24 20:31 OF REACTION Family History Other COPD (chronic obstructive pulmonary disease) Colon cancer Heart disease Lung cancer Testicular cancer Surgical History History of cardiac catheterization Status post cryoablation of arrhythmia (03/01/22) History of cardioversion (10/27/21) Bunion H/O hernia repair Social History Smoking Status: Former smoker alcohol intake: never substance use type: does not use caffeine: Yes Type: coffee Number of servings: 1 ROS ROS Narrative Review of Systems: Constitutional: Patient denies fever or chills. Eyes: Patient denies changes in vision or discharge from eyes. ENT: Patient denies runny nose, sore throat or ear pain. Resp: Patient denies shortness of breath or cough. CV: Patient denies chest pain, palpitations, heart racing or lower extremity edema. GI: Patient admits to mild epigastric abdominal pain with nausea and bilious emesis in addition to bloody diarrhea with dark stools as per HPI. : Patient denies dysuria or hematuria. MSK: Patient denies arthralgias or myalgias. Skin: Patient denies rash, abscess, wounds or jaundice. Psych: Patient denies symptoms of uncontrolled depression or anxiety. Neuro: Patient denies headache, paresthesias or focal neurologic deficits. Allergy: Patient denies lip swelling, tongue swelling or urticaria. Hematology: Patient admits to bloody diarrhea as per HPI. Endocrinology: Patient denies polyuria, polydipsia, polyphagia or heat/cold intolerance. 14 point ROS otherwise negative save for positives noted above in HPI. Vital Signs Vital Signs Vital Signs: 08/05/24 20:31 08/05/24 22:00 08/06/24 00:21 Temperature 97 F L 98.6 F Temperature Source Temporal Pulse Rate 88 74 72 Respiratory Rate 20 H 16 14 Blood Pressure 127/85 H 111/67 117/74 Blood Pressure Mean 99 81 88 Pulse Ox 98 97 96 Oxygen Delivery Method Room Air Room Air Weight Weight: 289 lb 0.416 oz Body Mass Index (BMI) 37.0 Physical Exam Const alert, oriented x3 and no apparent distress Constitutional Narrative: Obese. General Appearance: cooperative HEENT normocephalic, head/scalp atraumatic, hearing grossly normal bilaterally and moist oral mucous membranes Eyes PERRL, EOMs intact bilaterally and conjunctivae normal Neck no lymphadenopathy and supple Resp normal respiratory effort, no retractions, no use of accessory muscles and clear to auscultation bilaterally Cardio regular rate and regular rhythm GI normal to inspection, nondistended, normoactive bowel sounds, soft to palpation, non-tender and non-distended Extremity normal to inspection, full ROM and no clubbing, cyanosis or edema Skin Skin Narrative: Patient has evidence of rash, abscess, wounds or jaundice. Neuro oriented x3, CN's II-XII intact bilaterally, moves all extremities and no focal motor deficits Sensorium / Orientation: awake, alert, oriented to person, oriented to place and oriented to time Speech: speech normal Psych affect normal Results Medical Records Data Attestation: I reviewed the patient's medical records Lab / Micro Data Attestation: I reviewed the patient's lab results. 08/05/24 21:20 08/05/24 21:20 Labs: Laboratory Results - last 24 hr 08/05/24 21:20: WBC 7.7, RBC 5.44, Hgb 15.1, Hct 44.9, MCV 82.5, MCH 27.8, MCHC 33.6, RDW Std Deviation 42.5, RDW Coeff of Jett 14.3, Plt Count 207, MPV 11.1, Neut % (Auto) Not Reportable, Absolute Neuts (auto) 4.9, Absolute Lymphs (auto) 1.54, Total Counted 100, Neutrophils % (Manual) 38 L, Band Neutrophils % 26 H, Lymphocytes % (Manual) 20, Monocytes % (Manual) 10, Eosinophils % (Manual) 2, Metamyelocytes % 1, Myelocytes % 3 H, Differential Comment SCANNED, Diff Path Review May foll, Reactive Lymphocytes 2+, PT 50.1 H, INR 5.3 H*, Sodium 133, Potassium 3.4, Chloride 100, Carbon Dioxide 21.5, Anion Gap 12, BUN 19, Creatinine 0.96, Estim Creat Clear Calc 120.72, Est GFR (MDRD) Non-Af 92, BUN/Creatinine Ratio 20.0, Glucose 200 H, Calcium 7.7, Total Bilirubin 0.24, AST 12, ALT 9, Alkaline Phosphatase 93, Total Protein 6.5, Albumin 3.6, Globulin 2.8, Albumin/Globulin Ratio 1.3, Lipase 20 08/05/24 22:45: Urine Color Yellow, Urine Clarity Clear, Urine pH 6.0, Ur Specific Conroy 1.010, Urine Protein 30 H, Urine Glucose (UA) Normal, Urine Ketones Negative, Urine Occult Blood 10 H, Urine Nitrite Negative, Urine Bilirubin Negative, Urine Urobilinogen Normal, Ur Leukocyte Esterase 25 H, Urine RBC 0 SEEN, Urine WBC 0 SEEN, Ur Squamous Epith Cells 0 SEEN, Urine Bacteria 0 SEEN, Urine Mucus 0 SEEN 08/05/24 23:20: Lactic Acid < 1.0 Micro: Microbiology 08/05/24 21:24 Stool Stool Occult Blood (EDUARD) - Final Occult Blood Positive Imaging Radiology Impression Abdomen/Pelvis CT 08/05/24 22:08 IMPRESSION: Limited examination due to contrast bolus timing. There are areas of increased density within the small bowel and large bowel as described above. These may represent areas of active bleeding. Although multiphase CT scan of the abdomen may be helpful. In addition, nuclear medicine biliary scan may be helpful to delineate the exact location of the bleeding. Recommend GI input. Red Alert: Limited examination due to contrast bolus timing. There are areas of increased density within the small bowel and large bowel as described above. These may represent areas of active bleeding. Although multiphase CT scan of the abdomen may be helpful. In addition, nuclear medicine biliary scan may be helpful to delineate the exact location of the bleeding. Recommend GI input. The critical information above was relayed directly by me by telephone to Jose Juan Gotti on 08/05/2024 at 10:55 pm with readback verification. Reading Location: [id number] Assessment & Plan Assessment/Plan (1) Bloody diarrhea: (2) Nausea and vomiting: QUALIFIERS: Vomiting type: bilious vomiting Qualified Code(s): R11.14 - Bilious vomiting (3) Food poisoning: (4) Supratherapeutic INR: (5) Adverse drug reaction: QUALIFIERS: Encounter type: initial encounter Qualified Code(s): T50.905A - Adverse effect of unspecified drugs, medicaments and biological substances, initial encounter (6) Paroxysmal atrial fibrillation: (7) Hx of colonic polyps: (8) History of diverticulosis: (9) Obesity (BMI 30-39.9): (10) MARIELLA (obstructive sleep apnea): PLAN: Plan 1. Bloody Diarrhea with Nausea and Vomiting causing Bilious Emesis initially triggered by suspected Food Poisoning with CT scan of abdomen/pelvis this admission revealing increased density within the large and small bowel which may represent areas of bleeding - Admit to PCU. Keep strict n.p.o. and start pantoprazole IV drip. Type & screen blood and transfuse for hemoglobin less than 7 g/dL. Check stool studies and placed on enteric precautions. Give ondansetron IV as needed nausea vomiting. Give promethazine IM as needed for breakthrough nausea. Finally, we will consult gastroenterology to see this patient on rounds in the a.m. for further recommendations regarding panendoscopy this admission with help appreciated in advance. 2. Supratherapeutic INR of 5.3 present on admission due to adverse drug reaction to warfarin causing bleeding outlined in #1 - Stop warfarin. Patient treated with vitamin K in ER. Check PT/INR daily. 3. History of paroxysmal atrial fibrillation/flutter; with history of failed DCCV (10/2021) and history of cryoablation (02/2022) on diltiazem and warfarin complicating #1 & #2 - Hold oral medications for now and give IV diltiazem if patient develops atrial fibrillation. 4. History of diverticulosis and multiple colon polyps; s/p colonoscopy by Dr. Tamayo in May 2022 compounding #1 - #3 - Noted. 5. Obesity; with BMI of 37.1 this admission plus MARIELLA; on CPAP adding to the burden of disease outlined from #1 - #4 - Weight loss will be recommended. Check TSH. Hold CPAP to avoid insufflating bowel and potentially worsening bleeding. This complicates his case and may hamper recovery. 6. Essential Hypertension; on lisinopril, metoprolol, spironolactone and furosemide - Hold scheduled antihypertensives until bleeding outlined in #1 has been neutralized and patient restarted on oral intake. Give IV hydralazine as needed for systolic blood pressure greater than 160 mmHg. 7. Former tobacco abuse - Noted. 8. DM-2; of unknown control on metformin and insulin glargine 30 units sq twice daily - Hold metformin while inpatient in addition to 72 hours after recent contrast dye administration. Cut insulin glargine dose to 10 units subcu daily plus give the lowest intensity SSI. Check hemoglobin A1c to objectively assess quality of diabetic control. 9. History of chronic diastolic CHF; with preserved LVEF - Noted with no signs of volume overload at this time. 10. History of nonischemic cardiomyopathy - Noted. 11. RLS - Stable. 12. History of MRSA on extremities (2020) - Noted with no signs of recurrence at this time. 13. Depression; on bupropion twice daily - Restart this agent when patient is restarted on oral intake. 14. History of hernia; s/p repair - Noted. 15. DVT prophylaxis - Place SCD's. Supratherapeutic INR of 5.3 present on admission also diminishes risk of VTE. Check INR daily. Total time: Approximately (but not less than) 75 minutes. Charges/Coding Visit Charges Inpatient E&M: 51485 Init Hosp L3
[2024-08-06] MEDS: Phytonadione (Vit K1) 5 MG TABLET PO (01:24)
[2024-08-06 02:18] LABS: Magnesium 1.5 mg/dL (1.5-2.2)
[2024-08-06] MEDS: 0.9% Normal Saline (1000mL) 1,000 ML 100 ML IV (02:21)
[2024-08-06] MEDS: Pantoprazole Sodium 80 MG in 0.9% Normal Saline (100mL Bag) 80 ML 10 MG CONT INF (02:33)
[2024-08-06] MEDS: Magnesium Sulfate 2 GM in Dextrose 5%-Water (100mL Bag) 100 ML IV (03:15)
[2024-08-06 03:23] LABS: Hemoglobin A1c 8.2 % (<=5.6)
[2024-08-06 06:15] LABS: Hematocrit 41.3 % (40-54); Mean Corp Hgb Conc 33.9 g/dL (32-36); Mean Corpuscular Hgb 27.8 pg (27.0-32.0); Mean Corpuscular Volume 81.9 fL (80-94); Mean Platelet Vol. 10.5 fl (6.2-12.0); POSITIVE COUNT YES; POSITIVE MORPHOLOGY YES; Platelet Count 179 K/mm3 (150-450); RBC Distribution Width CV 14.5 % (11.6-14.6); RBC Distribution Width SD 42.8 fl (35.1-43.9); Red Blood Count 5.04 M/mm3 (4.6-6.2)
[2024-08-06 06:21] LABS: Bedside Glucose 196 mg/dL (74-106)
[2024-08-06 06:21] LABS: Differential Indicated MANUAL DIFF
[2024-08-06 06:25] LABS: Prothrombin Time (Protime)PT. 58.7 SECONDS (11.7-14.9)
[2024-08-06 06:51] LABS: ALB/GLOB Ratio 1.4 RATIO (0.9-2.4); AST(SGOT) 11 U/L (<=37); Alanine Aminotransfer ALT/SGPT 6 U/L (<=46); Alkaline Phosphatase 75 U/L (40-129); Anion Gap 11 (5-15); BUN 18 mg/dL (4-19); BUN/Creat Ratio 22.2 RATIO (10-20); Calcium,Total 7.2 mg/dL (7.6-11.0); Carbon Dioxide 16.8 mmol/L (21.0-32.0); Chloride 106 mmol/L (98-108); EST Glomerular Filtration Rate 103 (>60); Globulin 2.2 g/dL (2.2-4.2); Glucose 171 mg/dL (70-99); Phosphorus 2.2 mg/dL (2.7-4.5); Potassium 3.5 mmol/L (3.3-5.1); Protein, Total 5.2 g/dL (5.9-8.4); Sodium Level 133 mmol/L (133-145); Total Bilirubin 0.24 mg/dL (0.00-1.30)
[2024-08-06 08:48] LABS: Eosinophil 7 % (0-5); Lymphocyte 15 % (19-41); Metamyelocyte 7 % (0-1); Monocyte 11 % (0-10); Myelocyte 1 % (0-0); Neutrophil-Band 18 % (0-5); Neutrophil-Segmented 41 % (47-70); Total Cells Counted 100 (MANUAL DIFF)
[2024-08-06 08:49] LABS: Absolute Neutrophil Count 3.6 X10^3/uL (2.0-7.7)
[2024-08-06 09:58] LABS: International Normalized Ratio 6.5
--- NOTE | 2024-08-06 09:58 | CASEMGMT ---
RN DWIGHT SUPERVISOR DOCK CM?to room to meet with patient for initial transition planning/care coordination assessment. RN CM?introduced self and role at [facility]. Pt voices understanding and consents to assessment?at this time. Pt resting in bed in no distress at this time. Pt is A/O at this time and answers all questions appropriately. Care providers, pharmacy, and demographics verified/updated at this time. Strata:?2 PCP:Dr Mai Specialists: SILVIA/Dr Harvey, Dr Wang-extension service specialist in charge @ [facility], Dr Tamayo-surgeon Preferred Pharmacy:[facility] @ [place]. Otherwise, goes to [facility] Insurance: [employer] Prescription Benefit: Yes Living Will/HPOA: Has both LW and HCPOA, who is his friend, Francisco. LNOK: Friend, Francisco/HCPJANETH. Living Arrangements: Lives w/Francisco and Francisco's son in ranch-style home. Denies difficulty w/stairs. Independent. Works full-time. Transportation:?Pt states drives self and states no transportation concerns at this time. Francisco will take him home @ [place] DME:States has the following DME: CPAP from [employer], functioning glucometer w/supplies. He states he has sufficient supply of insulin and needles. HHC/SNF: No hx of either. No needs identified. Pt wishes to return home and states has no concerns with going home at time of discharge. Pt states does not smoke and drinks ETOH occasionally. CM?to follow for any discharge planning/needs. Pt voices no concerns/needs at this time. Advised pt to ask for CM?if any questions/concerns/needs arise. Voices understanding. PLAN: Home Johan GALLEGO RN, CM
[2024-08-06 10:07] LABS: Hemoglobin 14.2 g/dL (13.0-16.5)
[2024-08-06] MEDS: Potassium Phosphate 30 MM in 0.9% Normal Saline (250mL Bag) 250 ML 42 MM IV (12:43)
[2024-08-06] MEDS: Spironolactone 25 MG Tablet PO (12:44)
[2024-08-06] MEDS: Metoprolol Tartrate 25 MG Tablet 75 MG PO ×2 (12:47→21:45)
[2024-08-06] MEDS: Loperamide 2 MG Capsule PO (14:40)
[2024-08-06 16:18] LABS: Hemoglobin 13.7 g/dL (13.0-16.5)
[2024-08-06] MEDS: Insulin Lispro 100 UNIT/ML INSULN.PEN SC ×2 (17:00→21:50)
--- NOTE | 2024-08-06 17:18 | PN.HOSP_ITS ---
Hospitalist Note Patient is a 58-year-old male who presents emergency department [facility] early this morning on 08/06/2024 with nausea, vomiting, and bloody diarrhea. Patient is on anticoagulation for history of paroxysmal atrial fibrillation. Patient reported that about 3 days prior to presentation he ate an egg which tasted terrible and subsequently developed nonbloody diarrhea. On the evening of 08/05/2024 his stools became darker in color and he also complained of some mild epigastric discomfort and nausea with bilious emesis. He denied any bloody or coffee-ground emesis at the time of presentation. He had no fever or chills no chest pain palpitations shortness of breath or any significant abdominal pain. His INR was supratherapeutic at the time of presentation of 5.3. Hemoccult was done in the emergency department found to be positive. Vital signs at presentation showed temperature of 97, heart rate 88, respiratory rate was 20, blood pressure was 06/09/1984 pulse ox was 98% on room air. CBC was unremarkable with a hemoglobin of 15.1. Platelets were normal. He did have some mild bandemia which is improving. His hemoglobin has been relatively stable since admission. And his diarrhea has improved significantly. There is no blood in his diarrhea at this time. I think we can hold off on colonoscopy during his hospitalization as long as his hemoglobin remained stable. The patient does state he has an outpatient colonoscopy scheduled for 08/18/2024. As long as he remains stable I will discharge him tomorrow and have him pursue outpatient colonoscopy. INR 6.5 today so we will continue to hold Coumadin and likely hold at discharge potentially through his colonoscopy. C. difficile is negative. Enteric panel was negative. Ova and parasites is still pending. Will have patient's start diet and see how he does clinically with this as well as trend his hemoglobin. Again if he remains stable clinically we will have him follow-up as an outpatient for colonoscopy on the .
[2024-08-06 17:23] LABS: Bedside Glucose 207 mg/dL (74-106)
[2024-08-06 21:31] LABS: Hemoglobin 13.2 g/dL (13.0-16.5)
[2024-08-06] MEDS: 0.9% Saline Lock 10 ML Syringe IV (21:43)
[2024-08-06] MEDS: buPROPion (SR) 150 MG Tablet.SA PO (21:44)
[2024-08-06] MEDS: Insulin Glargine-YFGN 100 UNIT/ML Pen 30 UNIT SC (21:49)
[2024-08-06 22:38] LABS: Bedside Glucose 195 mg/dL (74-106)
[2024-08-07] VITALS (11 sets, daily range): BP systolic 107–132; BP diastolic 66–74; PULSE 68–80; RESP 13–18; TEMP 36.3–36.8; O2SAT 94–99; BMI 38.9
[2024-08-07 06:12] LABS: Hematocrit 40.2 % (40-54); Hemoglobin 13.4 g/dL (13.0-16.5); Mean Corp Hgb Conc 33.3 g/dL (32-36); Mean Corpuscular Hgb 27.2 pg (27.0-32.0); Mean Corpuscular Volume 81.7 fL (80-94); Mean Platelet Vol. 10.8 fl (6.2-12.0); POSITIVE COUNT YES; POSITIVE MORPHOLOGY YES; Platelet Count 190 K/mm3 (150-450); RBC Distribution Width CV 14.7 % (11.6-14.6); RBC Distribution Width SD 43.3 fl (35.1-43.9); Red Blood Count 4.92 M/mm3 (4.6-6.2); White Blood Count 8.7 K/mm3 (4.4-11.0)
[2024-08-07 06:13] LABS: Differential Indicated MANUAL DIFF
[2024-08-07] MEDS: Insulin Lispro 100 UNIT/ML INSULN.PEN SC ×4 (06:19→22:55)
[2024-08-07 06:32] LABS: Anion Gap 10 (5-15); BUN 13 mg/dL (4-19); BUN/Creat Ratio 17.6 RATIO (10-20); Calcium,Total 7.3 mg/dL (7.6-11.0); Carbon Dioxide 18.4 mmol/L (21.0-32.0); Chloride 107 mmol/L (98-108); Creatinine, Serum 0.76 mg/dL (0.70-1.20); EST Glomerular Filtration Rate 104 (>60); Estimated Creatinine Clearance 156.27 ml/min (50-250); Glucose 196 mg/dL (70-99); Magnesium 1.9 mg/dL (1.5-2.2); Phosphorus 2.2 mg/dL (2.7-4.5); Potassium 3.4 mmol/L (3.3-5.1); Sodium Level 135 mmol/L (133-145)
[2024-08-07 06:41] LABS: Bedside Glucose 191 mg/dL (74-106)
[2024-08-07] MEDS: Loperamide 2 MG Capsule 4 MG PO (08:22)
[2024-08-07] MEDS: Spironolactone 25 MG Tablet PO (08:23)
[2024-08-07] MEDS: buPROPion (SR) 150 MG Tablet.SA PO ×2 (08:23→22:56)
[2024-08-07] MEDS: Potassium Chloride Oral Tablet 10 MEQ PO (08:23)
[2024-08-07] MEDS: dilTIAZem CD 120 MG Capsule PO (08:23)
[2024-08-07] MEDS: Insulin Glargine-YFGN 100 UNIT/ML Pen 30 UNIT SC ×2 (08:26→22:56)
[2024-08-07 08:44] LABS: Eosinophil 2 % (0-5); Lymphocyte 17 % (19-41); Metamyelocyte 6 % (0-1); Monocyte 9 % (0-10); Myelocyte 1 % (0-0); Neutrophil-Band 15 % (0-5); Neutrophil-Segmented 47 % (47-70); Other WBC Type 3 %; Total Cells Counted 100 (MANUAL DIFF)
[2024-08-07 08:54] LABS: Absolute Neutrophil Count 5.4 X10^3/uL (2.0-7.7)
[2024-08-07 08:55] LABS: Absolute Lymphocyte Count 1.48 X10^3/uL (0.83-4.51)
[2024-08-07 08:57] LABS: Prothrombin Time (Protime)PT. 68.7 SECONDS (11.7-14.9)
[2024-08-07] MEDS: Phytonadione (Vit K1) 5 MG TABLET PO (09:32)
[2024-08-07] MEDS: Lisinopril 2.5 MG Tablet PO (11:18)
[2024-08-07] MEDS: Metoprolol Tartrate 25 MG Tablet 75 MG PO ×2 (11:18→22:56)
[2024-08-07 11:39] LABS: Bedside Glucose 180 mg/dL (74-106)
[2024-08-07] MEDS: Psyllium 1 PACKET PO ×2 (14:48→22:56)
[2024-08-07] MEDS: Cholestyramine/Sucrose 4 GM/PACKET PO ×2 (14:48→16:47)
[2024-08-07 17:07] LABS: Bedside Glucose 182 mg/dL (74-106)
--- NOTE | 2024-08-07 18:07 | PN.HOSP_ITS ---
Reason for Visit Reason for Visit: Bright red blood per rectum/diarrhea Subjective Subjective Blood per in stool any longer but still having pretty significant diarrhea. We discussed that his C. difficile was negative his enteric panel was negative ova and parasites are still pending however he has a negative lactoferrin so my suspicion for any infectious etiology is extremely low. He is not taking an significant amount of milk products at this time. He states that his stool is all liquid but like muddy water. Having mild abdominal discomfort but no significant discomfort with palpation on exam. Bowel sounds are normal. Objective Data Objective Data Vital Signs: Vital Signs Temp Pulse Resp BP Pulse Ox O2 Del Method 97.4 F L 69 13 125/71 H 94 Room Air 08/07/24 17:37 08/07/24 17:37 08/07/24 17:37 08/07/24 17:37 08/07/24 17:37 08/07/24 17:37 Oxygen Delivery Method Room Air Weight: 137.4 kg Body Mass Index (BMI) 38.9 Intake & Output: Intake and Output for Last 24 Hours 08/05/24 08/06/24 08/07/24 23:59 23:59 23:59 Intake Total 1000 / 1000 2241.33 / 2241.33 1000 / 1000 Balance 1000 / 1000 2241.33 / 2241.33 1000 / 1000 Lab / Micro Data 08/07/24 05:38 08/07/24 05:38 Labs: Laboratory Results - last 24 hr 08/06/24 21:22: Hgb 13.2 08/06/24 21:48: POC Glucose 195 H 08/07/24 05:38: WBC 8.7, RBC 4.92, Hgb 13.4, Hct 40.2, MCV 81.7, MCH 27.2, MCHC 33.3, RDW Std Deviation 43.3, RDW Coeff of Jett 14.7 H, Plt Count 190, MPV 10.8, Neut % (Auto) Not Reportable, Absolute Neuts (auto) 5.4, Absolute Lymphs (auto) 1.48, Total Counted 100, Neutrophils % (Manual) 47, Band Neutrophils % 15 H, L ymphocytes % (Manual) 17 L, Monocytes % (Manual) 9, Eosinophils % (Manual) 2, M etamyelocytes % 6 H, Myelocytes % 1 H, Other Cells % 3, Diff Path Review May foll, Sodium 135, Potassium 3.4, Chloride 107, Carbon Dioxide 18.4 L, Anion Gap 10, BUN 13, Creatinine 0.76, Estim Creat Clear Calc 156.27, Est GFR (MDRD) Non- Af 104, BUN/Creatinine Ratio 17.6, Glucose 196 H, Calcium 7.3 L, Phosphorus 2.2 L, Magnesium 1.9 08/07/24 06:18: POC Glucose 191 H 08/07/24 08:10: PT 68.7 H, INR 8.0 H* 08/07/24 11:16: POC Glucose 180 H 08/07/24 16:47: POC Glucose 182 H Micro: Microbiology 08/06/24 03:00 Stool Enteric Bacteriology - Final 08/06/24 03:00 Stool Stool Lactoferrin - Final 08/06/24 03:00 Stool Clostridioides difficile (PCR) - Final 08/05/24 21:24 Stool Stool Occult Blood (EDUARD) - Final Occult Blood Positive Physical Exam Const alert, oriented x3, no apparent distress and well nourished; Negative for average body habitus or healthy appearing Constitutional Narrative: Morbidly obese, white male, lying in bed, appears comfortable, does not look toxic General Appearance: cooperative HEENT normocephalic, head/scalp atraumatic and moist oral mucous membranes HEENT Narrative: Mallampati 4 Resp normal respiratory effort, no retractions, no use of accessory muscles and clear to auscultation bilaterally Cardio regular rate, regular rhythm, S1 normal heart sound, S2 normal heart sound, no murmurs, no rub, no gallops and no clicks GI normal to inspection, nondistended, normoactive bowel sounds and soft to palpation GI Narrative: Very minimal diffuse tenderness, despite diarrhea bowel sounds are not hyperactive Extremity normal to inspection, full ROM and no clubbing, cyanosis or edema Neuro oriented x3, moves all extremities and no focal motor deficits Speech: speech normal Psych affect normal Assessment & Plan Assessment/Plan (1) Bloody diarrhea: (2) Nausea and vomiting: QUALIFIERS: Vomiting type: bilious vomiting Qualified Code(s): R 11.14 - Bilious vomiting (3) Supratherapeutic INR: (4) Paroxysmal atrial fibrillation: (5) Obesity (BMI 30-39.9): (6) MARIELLA (obstructive sleep apnea): PLAN: Plan Ongoing diarrhea -Etiology is unclear at this time -C. difficile is negative -Enteric panel is negative -Lactoferrin is negative -Utilizing as needed Imodium -Will add Metamucil for bulk forming and cholestyramine -Has outpatient colonoscopy pending for 08/18/2024 there is no acute reason to perform colonoscopy at this time. Bright red blood per rectum -Highly suspect related to diarrhea and supratherapeutic INR -No further bleeding and hemoglobin is stable and in normal range despite INR still being elevated -No need for acute scope -CT of his abdomen pelvis did show some abnormalities however clinically it does not quite make sense Supratherapeutic INR -INR is now elevated to 8 -Continue to hold Coumadin -Will give 5 of vitamin K as his INR continues to go up likely related to GI tract issues -Repeat INR in a.m. -No bleeding at this time DM-2 -Continue current dose of insulin -Continue SSI -Continue Accu-Cheks as ordered -Hold home oral agents -Cardiac/carb controlled diet Paroxysmal atrial fibrillation/flutter -Previous failed DCCV in 2021 -History of cryoablation in 2021 -Continue diltiazem and metoprolol -Hold Coumadin due to supratherapeutic INR -Currently in sinus rhythm Essential 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 continue home diltiazem -Continue home Lasix -continue home lisinopril -Continue home metoprolol next-continue home Aldactone Nonischemic cardiomyopathy -EF has improved -This was suspected to be tachycardia mediated -Continue goal-directed therapy as noted History of tobacco abuse -Remote -Encouraged ongoing cessation History of chronic diastolic heart failure with preserved ejection fraction -Continue home diuretics -Currently euvolemic Restless leg syndrome -Stable Depression -Continue home Wellbutrin Morbid obesity -recommend weight loss -Complicates treatment, prognosis, outcomes DVT prophylaxis -INR supratherapeutic CODE STATUS Full code Charges/Coding Visit Charges Inpatient E&M: 78268 Subs Hosp L2
[2024-08-07 23:23] LABS: Bedside Glucose 163 mg/dL (74-106)
[2024-08-08 03:50] VITALS: BP 124/76; PULSE 72; RESP 16; TEMP 36.3; O2SAT 97
[2024-08-08 05:02] VITALS: BMI 38.9
[2024-08-08] MEDS: Psyllium 1 PACKET PO ×3 (06:21→21:51)
[2024-08-08] MEDS: Insulin Lispro 100 UNIT/ML INSULN.PEN SC ×4 (06:21→21:50)
[2024-08-08] MEDS: Cholestyramine/Sucrose 4 GM/PACKET PO ×2 (06:21→15:14)
[2024-08-08] MEDS: Loperamide 2 MG Capsule PO ×3 (06:22→21:51)
[2024-08-08 06:50] LABS: Bedside Glucose 190 mg/dL (74-106)
[2024-08-08 08:08] LABS: Hematocrit 50.1 % (40-54); Hemoglobin 16.8 g/dL (13.0-16.5); Mean Corp Hgb Conc 33.5 g/dL (32-36); Mean Corpuscular Hgb 27.7 pg (27.0-32.0); Mean Corpuscular Volume 82.7 fL (80-94); Mean Platelet Vol. 11.1 fl (6.2-12.0); POSITIVE COUNT YES; POSITIVE MORPHOLOGY YES; Platelet Count 272 K/mm3 (150-450); RBC Distribution Width CV 15.2 % (11.6-14.6); RBC Distribution Width SD 45.2 fl (35.1-43.9); Red Blood Count 6.06 M/mm3 (4.6-6.2); White Blood Count 13.2 K/mm3 (4.4-11.0)
[2024-08-08 08:19] LABS: Differential Indicated MANUAL DIFF
[2024-08-08 08:45] VITALS: BP 115/71; PULSE 72; RESP 16; TEMP 36.3; O2SAT 96
[2024-08-08 08:48] VITALS: PULSE 72
[2024-08-08] MEDS: Potassium Chloride Oral Tablet 10 MEQ PO (08:48)
[2024-08-08] MEDS: buPROPion (SR) 150 MG Tablet.SA PO ×2 (08:48→21:51)
[2024-08-08] MEDS: Metoprolol Tartrate 25 MG Tablet 75 MG PO ×2 (08:48→21:53)
[2024-08-08] MEDS: Lisinopril 2.5 MG Tablet PO (08:48)
[2024-08-08] MEDS: dilTIAZem CD 120 MG Capsule PO (08:48)
[2024-08-08] MEDS: Spironolactone 25 MG Tablet PO (08:48)
[2024-08-08 08:57] LABS: International Normalized Ratio 5.9
[2024-08-08 09:17] LABS: Phosphorus 3.4 mg/dL (2.7-4.5)
[2024-08-08 10:38] LABS: ALB/GLOB Ratio 1.2 RATIO (0.9-2.4); AST(SGOT) 11 U/L (<=37); Alanine Aminotransfer ALT/SGPT 7 U/L (<=46); Albumin, Serum 3.4 g/dL (3.5-5.0); Alkaline Phosphatase 102 U/L (40-129); Anion Gap 12 (5-15); BUN 13 mg/dL (4-19); BUN/Creat Ratio 12.8 RATIO (10-20); Calcium,Total 8.4 mg/dL (7.6-11.0); Carbon Dioxide 16.8 mmol/L (21.0-32.0); Chloride 105 mmol/L (98-108); EST Glomerular Filtration Rate 87 (>60); Estimated Creatinine Clearance 118.95 ml/min (50-250); Globulin 2.8 g/dL (2.2-4.2); Glucose 191 mg/dL (70-99); Potassium 3.9 mmol/L (3.3-5.1); Protein, Total 6.2 g/dL (5.9-8.4); Sodium Level 133 mmol/L (133-145); Total Bilirubin 0.21 mg/dL (0.00-1.30)
--- NOTE | 2024-08-08 11:22 | PN.HOSP_ITS ---
Reason for Visit Reason for Visit: Bright red blood per rectum/diarrhea intractable Subjective Subjective Patient still having diarrhea. States that his stool is normal bulk formed despite the addition of fiber and cholestyramine yesterday. Still denies any significant abdominal pain. Eating well. No nausea or vomiting. Blood sugars are fairly well-controlled overall Objective Data Objective Data Vital Signs: Vital Signs Temp Pulse Resp BP Pulse Ox O2 Del Method 97.4 F L 72 16 115/71 96 Room Air 08/08/24 08:45 08/08/24 08:48 08/08/24 08:45 08/08/24 08:45 08/08/24 08:45 08/08/24 08:45 Oxygen Delivery Method Room Air Weight: 137.8 kg Body Mass Index (BMI) 38.9 Intake & Output: Intake and Output for Last 24 Hours 08/06/24 08/07/24 08/08/24 23:59 23:59 23:59 Intake Total 2241.33 / 2241.33 1000 / 1000 Balance 2241.33 / 2241.33 1000 / 1000 Lab / Micro Data 08/08/24 07:17 08/08/24 07:17 Labs: Laboratory Results - last 24 hr 08/07/24 11:16: POC Glucose 180 H 08/07/24 16:47: POC Glucose 182 H 08/07/24 22:54: POC Glucose 163 H 08/08/24 06:20: POC Glucose 190 H 08/08/24 07:17: WBC 13.2 H, RBC 6.06, Hgb 16.8 H, Hct 50.1, MCV 82.7, MCH 27.7, MCHC 33.5, RDW Std Deviation 45.2 H, RDW Coeff of Jett 15.2 H, Plt Count 272, MPV 11.1, Neut % (Auto) Not Reportable, PT 54.0 H, INR 5.9 H*, Sodium 133, Potassium 3.9, Chloride 105, Carbon Dioxide 16.8 L, Anion Gap 12, BUN 13, Creatinine 1.00, Estim Creat Clear Calc 118.95, Est GFR (MDRD) Non-Af 87, BUN/Creatinine Ratio 12.8, Glucose 191 H, Calcium 8.4, Phosphorus 3.4, Total Bilirubin 0.21, AST 11, ALT 7, Alkaline Phosphatase 102, Total Protein 6.2, Albumin 3.4 L, Globulin 2.8, Albumin/Globulin Ratio 1.2 Micro: Microbiology 08/06/24 03:00 Stool Enteric Bacteriology - Final 08/06/24 03:00 Stool Stool Lactoferrin - Final 08/06/24 03:00 Stool Clostridioides difficile (PCR) - Final 08/05/24 21:24 Stool Stool Occult Blood (EDUARD) - Final Occult Blood Positive Physical Exam Const alert, oriented x3, no apparent distress and well nourished; Negative for average body habitus or healthy appearing Constitutional Narrative: Morbidly obese, white male, lying in bed, appears comfortable, does not look toxic, watching television General Appearance: cooperative HEENT normocephalic, head/scalp atraumatic and moist oral mucous membranes Resp normal respiratory effort, no retractions, no use of accessory muscles and clear to auscultation bilaterally Cardio regular rate, regular rhythm, S1 normal heart sound, S2 normal heart sound, no murmurs, no rub, no gallops and no clicks GI normal to inspection, nondistended, normoactive bowel sounds, soft to palpation and non-tender GI Narrative: No significant tenderness noted, Extremity no clubbing, cyanosis or edema Neuro oriented x3, moves all extremities and no focal motor deficits Speech: speech normal Psych affect normal Assessment & Plan Assessment/Plan (1) Bloody diarrhea: (2) Nausea and vomiting: QUALIFIERS: Vomiting type: bilious vomiting Qualified Code(s): R 11.14 - Bilious vomiting (3) Supratherapeutic INR: (4) Paroxysmal atrial fibrillation: (5) Obesity (BMI 30-39.9): (6) MARIELLA (obstructive sleep apnea): PLAN: Plan Ongoing diarrhea -Etiology remains unclear at this time -C. difficile is negative -Enteric panel is negative -Lactoferrin is negative -Check sed rate and CRP -Utilizing as needed Imodium, have started on scheduled cholestyramine and Metamucil with no change in stool activity -Has outpatient colonoscopy pending for 08/18/2024 there is no acute reason to perform colonoscopy at this time. -Given the fact he said no change on current therapy will consult GI-discussed with Dr. Brito Bright red blood per rectum -Highly suspect related to diarrhea and supratherapeutic INR -Hemoglobin is normal with no significant downtrend -No further bleeding despite INR still being elevated -No need for acute scope -CT of his abdomen pelvis did show some abnormalities however clinically it does not quite make sense Supratherapeutic INR -Down to 5.9 today from 8 yesterday -Continue to hold Coumadin -Repeat INR in a.m. -No bleeding at this time DM-2 -Increase basal insulin from 30-35 -Fasting sugars are still high -Continue SSI -Continue Accu-Cheks as ordered -Hold home oral agents -Cardiac/carb controlled diet Paroxysmal atrial fibrillation/flutter -Previous failed DCCV in 2021 -History of cryoablation in 2021 -Continue diltiazem and metoprolol -Continue to hold Coumadin due to supratherapeutic INR -Currently in sinus rhythm Essential 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 -Continue home diltiazem -Continue home Lasix -continue home lisinopril -Continue home metoprolol -continue home Aldactone Nonischemic cardiomyopathy -EF has improved -This was suspected to be tachycardia mediated -Continue goal-directed therapy as noted History of tobacco abuse -Remote -Encouraged ongoing cessation History of chronic diastolic heart failure with preserved ejection fraction -Continue home diuretics -Remains euvolemic Restless leg syndrome -Stable Depression -Continue home Wellbutrin Morbid obesity -recommend weight loss -Complicates treatment, prognosis, outcomes DVT prophylaxis -INR remains supratherapeutic CODE STATUS Full code Charges/Coding Visit Charges Inpatient E&M: 72493 Subs Hosp L2
[2024-08-08] MEDS: Insulin Glargine-YFGN 100 UNIT/ML Pen 35 UNIT SC ×2 (11:49→21:50)
[2024-08-08 12:08] LABS: Erythrocyte Sedimentation Rate 12 mm/hr (0-20)
[2024-08-08 12:09] LABS: Bedside Glucose 229 mg/dL (74-106)
[2024-08-08 13:34] LABS: Eosinophil 4 % (0-5); Lymphocyte 23 % (19-41); Metamyelocyte 6 % (0-1); Monocyte 8 % (0-10); Myelocyte 3 % (0-0); Neutrophil-Band 9 % (0-5); Neutrophil-Segmented 47 % (47-70); Total Cells Counted 100 (MANUAL DIFF)
[2024-08-08 13:36] LABS: Platelet Estimate A (ADEQ); Polychromasia 1+
[2024-08-08 13:37] LABS: Absolute Lymphocyte Count 3.03 X10^3/uL (0.83-4.51); Absolute Neutrophil Count 7.4 X10^3/uL (2.0-7.7)
[2024-08-08 15:18] VITALS: BP 103/70; PULSE 72; RESP 18; TEMP 36.4; O2SAT 100
[2024-08-08 16:54] LABS: Bedside Glucose 189 mg/dL (74-106)
[2024-08-08] MEDS: Lorazepam 2 MG/ML WCH Syringe 1 MG IV (18:02)
[2024-08-08 21:45] VITALS: BP 103/60; PULSE 76; RESP 16; TEMP 36.4; O2SAT 99
[2024-08-08 21:53] VITALS: BP 103/60; PULSE 76
[2024-08-08 22:17] LABS: Bedside Glucose 249 mg/dL (74-106)
[2024-08-09] VITALS (7 sets, daily range): BP systolic 100–130; BP diastolic 42–62; PULSE 69–78; RESP 16–18; TEMP 36.3–36.6; O2SAT 95–98; BMI 37.5
[2024-08-09] MEDS: Loperamide 2 MG Capsule PO ×3 (06:32→21:32)
[2024-08-09] MEDS: Psyllium 1 PACKET PO ×3 (06:32→21:33)
[2024-08-09] MEDS: Cholestyramine/Sucrose 4 GM/PACKET PO ×2 (06:32→16:09)
[2024-08-09] MEDS: Insulin Lispro 100 UNIT/ML INSULN.PEN SC ×4 (06:34→21:37)
[2024-08-09 06:59] LABS: Bedside Glucose 204 mg/dL (74-106)
[2024-08-09 07:36] LABS: Hematocrit 52.6 % (40-54); Hemoglobin 17.5 g/dL (13.0-16.5); Mean Corp Hgb Conc 33.3 g/dL (32-36); Mean Corpuscular Hgb 27.3 pg (27.0-32.0); Mean Corpuscular Volume 82.1 fL (80-94); Mean Platelet Vol. 10.8 fl (6.2-12.0); POSITIVE COUNT YES; POSITIVE DIFFERENTIAL YES; POSITIVE MORPHOLOGY YES; Platelet Count 326 K/mm3 (150-450); RBC Distribution Width CV 15.9 % (11.6-14.6); RBC Distribution Width SD 45.2 fl (35.1-43.9); Red Blood Count 6.41 M/mm3 (4.6-6.2); White Blood Count 19.7 K/mm3 (4.4-11.0)
[2024-08-09 07:45] LABS: Differential Indicated MANUAL DIFF
[2024-08-09 08:30] LABS: Anion Gap 15 (5-15); BUN 25 mg/dL (4-19); BUN/Creat Ratio 12.7 RATIO (10-20); Calcium,Total 8.4 mg/dL (7.6-11.0); Carbon Dioxide 18.8 mmol/L (21.0-32.0); Chloride 97 mmol/L (98-108); Creatinine, Serum 1.94 mg/dL (0.70-1.20); EST Glomerular Filtration Rate 39 (>60); Estimated Creatinine Clearance 61.31 ml/min (50-250); Glucose 189 mg/dL (70-99); Potassium 3.5 mmol/L (3.3-5.1); Sodium Level 131 mmol/L (133-145)
[2024-08-09 08:33] LABS: Eosinophil 10 % (0-5); Lymphocyte 28 % (19-41); Metamyelocyte 3 % (0-1); Monocyte 3 % (0-10); Myelocyte 2 % (0-0); Neutrophil-Band 12 % (0-5); Neutrophil-Segmented 41 % (47-70); Nucleated Red Bld Cells,Manual 1 % (0-5); Platelet Estimate ADEQUATE (ADEQ); Promyelocyte 1 % (0-0); Red Cell Morphology NORM C+C NORMAL (NORM C&C); Total Cells Counted 100 (MANUAL DIFF)
[2024-08-09 08:34] LABS: Absolute Lymphocyte Count 5.52 X10^3/uL (0.83-4.51); Absolute Neutrophil Count 10.5 X10^3/uL (2.0-7.7)
[2024-08-09 08:56] LABS: International Normalized Ratio 5.2
--- NOTE | 2024-08-09 09:04 | PN.HOSP_ITS ---
Reason for Visit Reason for Visit: Bright red blood per rectum/diarrhea Subjective Subjective Patient with ongoing diarrhea but states the frequency seems to be slowing some. Still with a leukocytosis and bandemia. Denies any fever chills abdominal pain nausea, vomiting. Tolerating a diet okay. Objective Data Objective Data Vital Signs: Vital Signs Temp Pulse Resp BP Pulse Ox O2 Del Method 97.8 F 71 16 100/62 97 Room Air 08/09/24 03:09 08/09/24 03:09 08/09/24 03:09 08/09/24 03:09 08/09/24 03:09 08/09/24 03:09 Oxygen Delivery Method Room Air Weight: 137.8 kg Body Mass Index (BMI) 38.9 Intake & Output: Intake and Output for Last 24 Hours 08/07/24 08/08/24 08/09/24 23:59 23:59 23:59 Intake Total 1000 / 1000 1000 / 1000 Balance 1000 / 1000 1000 / 1000 Lab / Micro Data 08/09/24 06:35 08/09/24 14:15 Labs: Laboratory Results - last 24 hr 08/08/24 07:17: Absolute Neuts (auto) 7.4, Absolute Lymphs (auto) 3.03, Total Counted 100, Neutrophils % (Manual) 47, Band Neutrophils % 9 H, Lymphocytes % (Manual) 23, Monocytes % (Manual) 8, Eosinophils % (Manual) 4, Metamyelocytes % 6 H, Myelocytes % 3 H, Platelet Estimate A, Polychromasia 1+, ESR 12, Sodium 133, Potassium 3.9, Chloride 105, Carbon Dioxide 16.8 L, Anion Gap 12, BUN 13, Creatinine 1.00, Estim Creat Clear Calc 118.95, Est GFR (MDRD) Non-Af 87, BUN/Creatinine Ratio 12.8, Glucose 191 H, Calcium 8.4, Phosphorus 3.4, Total Bilirubin 0.21, AST 11, ALT 7, Alkaline Phosphatase 102, C-React Prot Ext Range 9.20 H, Total Protein 6.2, Albumin 3.4 L, Globulin 2.8, Albumin/Globulin Ratio 1.2 08/08/24 11:48: POC Glucose 229 H 08/08/24 16:34: POC Glucose 189 H 08/08/24 21:49: POC Glucose 249 H 08/09/24 06:34: POC Glucose 204 H 08/09/24 06:35: WBC 19.7 H, RBC 6.41 H, Hgb 17.5 H, Hct 52.6, MCV 82.1, MCH 27.3, MCHC 33.3, RDW Std Deviation 45.2 H, RDW Coeff of Jett 15.9 H, Plt Count 326, MPV 10.8, Neut % (Auto) Not Reportable, Absolute Neuts (auto) 10.5 H, A bsolute Lymphs (auto) 5.52 H, Total Counted 100, Neutrophils % (Manual) 41 L, B and Neutrophils % 12 H, Lymphocytes % (Manual) 28, Monocytes % (Manual) 3, E osinophils % (Manual) 10 H, Metamyelocytes % 3 H, Myelocytes % 2 H, P romyelocytes % 1 H, Nucleated RBCs/100 WBC 1, Platelet Estimate ADEQUATE, RBC Morphology NORM C+C, PT 49.0 H, INR 5.2 H*, Sodium 131 L, Potassium 3.5, C hloride 97 L, Carbon Dioxide 18.8 L, Anion Gap 15, BUN 25 H, Creatinine 1.94 H, Estim Creat Clear Calc 61.31, Est GFR (MDRD) Non-Af 39 L, BUN/Creatinine Ratio 12.7, Glucose 189 H, Calcium 8.4 Micro: Microbiology 08/06/24 03:00 Stool Enteric Bacteriology - Final 08/06/24 03:00 Stool Stool Lactoferrin - Final 08/06/24 03:00 Stool Clostridioides difficile (PCR) - Final 08/05/24 21:24 Stool Stool Occult Blood (EDUARD) - Final Occult Blood Positive Physical Exam Const alert, oriented x3, no apparent distress and well nourished; Negative for average body habitus or healthy appearing Constitutional Narrative: Morbidly obese, white male, lying in bed, appears comfortable, does not look toxic, watching television General Appearance: cooperative HEENT normocephalic, head/scalp atraumatic and moist oral mucous membranes HEENT Narrative: Mallampati 3-4, no thrush Resp normal respiratory effort, no retractions, no use of accessory muscles and clear to auscultation bilaterally Cardio regular rate, regular rhythm, S1 normal heart sound, S2 normal heart sound, no murmurs, no rub, no gallops and no clicks GI normal to inspection, nondistended, normoactive bowel sounds, soft to palpation and non-tender GI Narrative: No abdominal tenderness noted all Extremity no clubbing, cyanosis or edema Extremity Narrative: Pedal and radial pulses are 2+ Neuro oriented x3, moves all extremities and no focal motor deficits Speech: speech normal Psych affect normal Psych Narrative: Frustrated but pleasant Assessment & Plan Assessment/Plan (1) Bloody diarrhea: (2) Nausea and vomiting: QUALIFIERS: Vomiting type: bilious vomiting Qualified Code(s): R 11.14 - Bilious vomiting (3) Supratherapeutic INR: (4) Paroxysmal atrial fibrillation: (5) Obesity (BMI 30-39.9): (6) MARIELLA (obstructive sleep apnea): PLAN: Plan Ongoing diarrhea -Etiology remains unclear at this time -C. difficile is negative -Enteric panel is negative -Lactoferrin is negative -Sed rate and CRP are both unremarkable -Continue cholestyramine and Metamucil -Continue Imodium 2 mg p.o. 3 times daily per GI -With white count elevation and bandemia will we will go ahead and start antibiotics -Has outpatient colonoscopy pending for 08/18/2024 there is no acute reason to perform colonoscopy at this time. -GI consulted awaiting formal consult-discussed with Dr. Brito Bright red blood per rectum -Resolved and hemoglobin stable Supratherapeutic INR -INR is stabilizing and down to 5.2 from 5.9 -1 dose of vitamin K was given on 08/07/2024 5 mg IV -Continue to hold Coumadin -Repeat INR in a.m. -No bleeding at this time FRANSISCA -Dehydration likely related to profuse diarrhea and lack of sufficient oral intake -2 L IV fluids given bolus and then will continue IV fluids 125 mg an hour through tomorrow morning and reassess -Avoid nephrotoxins Metabolic acidosis -Mild -Suspect related to FRANSISCA -Repeat lab in a.m. DM-2 -Continue basal insulin at 35 units -Continue SSI -Continue Accu-Cheks as ordered -Hold home oral agents -Cardiac/carb controlled diet Paroxysmal atrial fibrillation/flutter -Previous failed DCCV in 2021 -History of cryoablation in 2021 -Continue diltiazem and metoprolol -Continue to hold Coumadin due to supratherapeutic INR -Currently in sinus rhythm Essential 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 -Continue home diltiazem -Continue home Lasix -continue home lisinopril -Continue home metoprolol -continue home Aldactone Nonischemic cardiomyopathy -EF has improved -This was suspected to be tachycardia mediated -Continue goal-directed therapy as noted History of tobacco abuse -Remote -Encouraged ongoing cessation History of chronic diastolic heart failure with preserved ejection fraction -Continue home diuretics -Remains euvolemic Restless leg syndrome -Stable Depression -Continue home Wellbutrin Morbid obesity -recommend weight loss -Complicates treatment, prognosis, outcomes DVT prophylaxis -INR remains supratherapeutic CODE STATUS Full code Charges/Coding Visit Charges Inpatient E&M: 28969 Subs Hosp L2
[2024-08-09] MEDS: 0.9% Saline Lock 10 ML Syringe IV ×2 (09:38→17:37)
[2024-08-09] MEDS: Lactated Ringers 1,000 ML 999 ML IV ×2 (09:38→10:41)
[2024-08-09] MEDS: Insulin Glargine-YFGN 100 UNIT/ML Pen 35 UNIT SC ×2 (09:38→21:39)
[2024-08-09] MEDS: Spironolactone 25 MG Tablet PO (09:39)
[2024-08-09] MEDS: buPROPion (SR) 150 MG Tablet.SA PO ×2 (09:39→21:32)
[2024-08-09] MEDS: dilTIAZem CD 120 MG Capsule PO (09:39)
[2024-08-09] MEDS: Potassium Chloride Oral Tablet 10 MEQ PO (09:39)
[2024-08-09] MEDS: Lisinopril 2.5 MG Tablet PO (09:39)
[2024-08-09] MEDS: metroNIDAZOLE 500 MG/100 ML BAG 100 MG IV ×3 (11:44→21:42)
[2024-08-09 12:07] LABS: Bedside Glucose 179 mg/dL (74-106)
[2024-08-09] MEDS: Ciprofloxacin 200 MG/100 ML BAG 100 MG IV ×2 (12:57→23:17)
[2024-08-09 15:57] LABS: Anion Gap 13 (5-15); BUN 26 mg/dL (4-19); BUN/Creat Ratio 15.1 RATIO (10-20); Calcium,Total 8.2 mg/dL (7.6-11.0); Carbon Dioxide 17.5 mmol/L (21.0-32.0); Chloride 99 mmol/L (98-108); Creatinine, Serum 1.73 mg/dL (0.70-1.20); EST Glomerular Filtration Rate 45 (>60); Estimated Creatinine Clearance 67.35 ml/min (50-250); Glucose 193 mg/dL (70-99); Potassium 3.5 mmol/L (3.3-5.1); Sodium Level 130 mmol/L (133-145)
[2024-08-09 16:30] LABS: Bedside Glucose 177 mg/dL (74-106)
[2024-08-09] MEDS: Lactated Ringers 1,000 ML 150 ML IV ×2 (17:37→23:46)
[2024-08-09] MEDS: Metoprolol Tartrate 25 MG Tablet 75 MG PO (21:32)
--- NOTE | 2024-08-09 22:06 | EX.PCM.CON.G ---
HPI Consult Data Date of Consult: 08/09/24 HPI Narrative Reason for Consultation: Diarrhea HPI Narrative: ALFIE BACON, is a 58 M presented for evaluation of nausea, vomiting, diarrhea. Patient states on he ate an egg which he believes was bad as it tasted gross. 3 days ago he developed nonbloody diarrhea. Patient states it has become more dark in color today. He denies any recent antibiotic use. Patient states he is having some nausea and nonbloody emesis today. His last colonoscopy by Dr. Tamayo in May 2022. In the ER he was noted to have supratherapeutic INR of 5.3 secondary to warfarin causing Bloody Diarrhea followed by a CT scan of the abdomen pelvis with IV contrast that revealed limited examination due to contrast bolus timing with increased density within the small bowel and large bowel which may represent areas of active bleeding with GI input recommended. 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 Essential 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 Atrial fibrillation with rapid ventricular response MARIELLA (obstructive sleep apnea) Diabetes COPD (chronic obstructive pulmonary disease) Home Medications ?Medication ?Instructions ?Recorded ?Last Taken ?Type bupropion HCl 150 mg tablet,12 hr 150 mg PO BID antidepressant 08/14/21 05/23/22 History sustained-release metformin 1,000 mg tablet 1,000 mg PO BID dm 08/14/21 05/23/22 History lisinopril 2.5 mg tablet 2.5 mg PO DAILY 05/22/22 05/24/22 History insulin glargine 100 unit/mL (3 30 unit subcut BID 05/17/23 Unknown History mL) subcutaneous pen (Lantus Solostar U-100 Insulin) diltiazem HCl 120 mg 120 mg PO DAILY #90 caps 09/24/23 Unknown Rx capsule,extended release 24 hr spironolactone 25 mg tablet See Rx Instructions .Route 09/24/23 Unknown Rx .COMPLEX #30 tabs potassium chloride 10 mEq 10 meq PO DAILY #90 tabs 07/18/24 Unknown Rx tablet,extended release furosemide 40 mg tablet 80 mg PO DAILY 08/05/24 Unknown History metoprolol tartrate 75 mg tablet 75 mg PO Q12H 08/05/24 Unknown History warfarin 2 mg tablet 2 mg PO WETH 08/05/24 Unknown History warfarin 5 mg tablet 10 mg PO DAILY 08/05/24 Unknown History Allergy/AdvReac Type Severity Reaction Status Date / Time Penicillins Allergy PT UNSURE Verified 08/05/24 20:31 OF REACTION Family History Other COPD (chronic obstructive pulmonary disease) Colon cancer Heart disease Lung cancer Testicular cancer Surgical History History of cardiac catheterization Status post cryoablation of arrhythmia (03/01/22) History of cardioversion (10/27/21) Bunion H/O hernia repair Social History Smoking Status: Former smoker alcohol intake: never substance use type: does not use caffeine: Yes Type: coffee Number of servings: 1 ROS ROS Narrative Review of Systems: Constitutional: Patient denies fever or chills. Eyes: Patient denies changes in vision or discharge from eyes. ENT: Patient denies runny nose, sore throat or ear pain. Resp: Patient denies shortness of breath or cough. CV: Patient denies chest pain, palpitations, heart racing or lower extremity edema. GI: Patient admits to mild epigastric abdominal pain with nausea and bilious emesis in addition to bloody diarrhea with dark stools as per HPI. : Patient denies dysuria or hematuria. MSK: Patient denies arthralgias or myalgias. Skin: Patient denies rash, abscess, wounds or jaundice. Psych: Patient denies symptoms of uncontrolled depression or anxiety. Neuro: Patient denies headache, paresthesias or focal neurologic deficits. Allergy: Patient denies lip swelling, tongue swelling or urticaria. Hematology: Patient admits to bloody diarrhea as per HPI. Endocrinology: Patient denies polyuria, polydipsia, polyphagia or heat/cold intolerance. 14 point ROS otherwise negative save for positives noted above in HPI. Physical Exam Const alert, oriented x3, no apparent distress and healthy appearing General Appearance: cooperative GI normal to inspection, nondistended, normoactive bowel sounds, soft to palpation, non-tender and non-distended Percussion: normal to percussion Rectal Exam: deferred Lab / Micro Data 08/09/24 06:35 08/09/24 14:15 Labs: Laboratory Results - last 24 hr 08/08/24 21:49: POC Glucose 249 H 08/09/24 06:34: POC Glucose 204 H 08/09/24 06:35: WBC 19.7 H, RBC 6.41 H, Hgb 17.5 H, Hct 52.6, MCV 82.1, MCH 27.3, MCHC 33.3, RDW Std Deviation 45.2 H, RDW Coeff of Jett 15.9 H, Plt Count 326, MPV 10.8, Neut % (Auto) Not Reportable, Absolute Neuts (auto) 10.5 H, Absolute Lymphs (auto) 5.52 H, Total Counted 100, Neutrophils % (Manual) 41 L, Band Neutrophils % 12 H, Lymphocytes % (Manual) 28, Monocytes % (Manual) 3, Eosinophils % (Manual) 10 H, Metamyelocytes % 3 H, Myelocytes % 2 H, Promyelocytes % 1 H, Nucleated RBCs/100 WBC 1, Platelet Estimate ADEQUATE, RBC Morphology NORM C+C, PT 49.0 H, INR 5.2 H*, Sodium 131 L, Potassium 3.5, Chloride 97 L, Carbon Dioxide 18.8 L, Anion Gap 15, BUN 25 H, Creatinine 1.94 H, Estim Creat Clear Calc 61.31, Est GFR (MDRD) Non-Af 39 L, BUN/Creatinine Ratio 12.7, Glucose 189 H, Calcium 8.4 08/09/24 11:46: POC Glucose 179 H 08/09/24 14:15: Sodium 130 L, Potassium 3.5, Chloride 99, Carbon Dioxide 17.5 L, Anion Gap 13, BUN 26 H, Creatinine 1.73 H, Estim Creat Clear Calc 67.35, Est GFR (MDRD) Non-Af 45 L, BUN/Creatinine Ratio 15.1, Glucose 193 H, Calcium 8.2 08/09/24 16:08: POC Glucose 177 H Assessment & Plan Assessment/Plan (1) Bloody diarrhea: (2) Nausea and vomiting: QUALIFIERS: Vomiting type: bilious vomiting Qualified Code(s): R11.14 - Bilious vomiting (3) Food poisoning: (4) Supratherapeutic INR: PLAN: Plan 58 yo with Bloody Diarrhea with Nausea and Vomiting causing Bilious Emesis initially triggered by suspected Food Poisoning with CT scan of abdomen/pelvis Differential Diagnosis- Inflammatory bowel disease, Microscopic colitis, IBS with diarrhea. He will get an egd and colonoscopy on 08/11/2024 Charges/Coding Visit Charges Inpatient E&M: 77706 Init Hosp L3
[2024-08-09 22:10] LABS: Bedside Glucose 233 mg/dL (74-106)
[2024-08-09 23:25] LABS: Pathologist Review May foll
[2024-08-10] VITALS (7 sets, daily range): BP systolic 84–132; BP diastolic 43–67; PULSE 18–87; RESP 14–18; TEMP 36.4–36.8; O2SAT 96–100
[2024-08-10] MEDS: metroNIDAZOLE 500 MG/100 ML BAG 100 MG IV ×3 (05:25→21:50)
[2024-08-10] MEDS: Lactated Ringers 1,000 ML 150 ML IV (07:00)
[2024-08-10 07:10] LABS: Hematocrit 42.5 % (40-54); Hemoglobin 14.4 g/dL (13.0-16.5); Mean Corp Hgb Conc 33.9 g/dL (32-36); Mean Corpuscular Hgb 27.4 pg (27.0-32.0); Mean Platelet Vol. 10.7 fl (6.2-12.0); POSITIVE COUNT YES; POSITIVE DIFFERENTIAL YES; POSITIVE MORPHOLOGY YES; Platelet Count 230 K/mm3 (150-450); RBC Distribution Width CV 15.2 % (11.6-14.6); RBC Distribution Width SD 44.4 fl (35.1-43.9); Red Blood Count 5.25 M/mm3 (4.6-6.2); White Blood Count 19.9 K/mm3 (4.4-11.0)
[2024-08-10 07:41] LABS: ALB/GLOB Ratio 1.3 RATIO (0.9-2.4); AST(SGOT) 9 U/L (<=37); Alanine Aminotransfer ALT/SGPT 5 U/L (<=46); Albumin, Serum 2.9 g/dL (3.5-5.0); Alkaline Phosphatase 71 U/L (40-129); Anion Gap 12 (5-15); BUN 31 mg/dL (4-19); BUN/Creat Ratio 15.8 RATIO (10-20); Calcium,Total 7.8 mg/dL (7.6-11.0); Carbon Dioxide 18.8 mmol/L (21.0-32.0); Chloride 101 mmol/L (98-108); Creatinine, Serum 1.99 mg/dL (0.70-1.20); EST Glomerular Filtration Rate 38 (>60); Estimated Creatinine Clearance 58.55 ml/min (50-250); Globulin 2.2 g/dL (2.2-4.2); Glucose 135 mg/dL (70-99); Magnesium 1.8 mg/dL (1.5-2.2); Phosphorus 5.2 mg/dL (2.7-4.5); Sodium Level 131 mmol/L (133-145); Total Bilirubin 0.25 mg/dL (0.00-1.30)
[2024-08-10 08:14] LABS: International Normalized Ratio 4.5; Prothrombin Time (Protime)PT. 43.9 SECONDS (11.7-14.9)
--- NOTE | 2024-08-10 08:43 | PN.HOSP_ITS ---
Reason for Visit Reason for Visit: Bright red blood per rectum/diarrhea Subjective Subjective Patient states he is feeling fine. Denies any significant abdominal pain no nausea or vomiting. Eating well. No fevers no chills. Blood pressure was low this morning. Creatinine is up again despite bolus and IV fluids through the night. It had gone down and then trended back up again. Alterations made in medications and further fluid boluses given. Plan is to obtain EGD and colonoscopy tomorrow Objective Data Objective Data Vital Signs: Vital Signs Temp Pulse Resp BP Pulse Ox O2 Del Method 97.5 F L 18 L 18 84/52 L 99 Room Air 08/10/24 08:32 08/10/24 08:32 08/10/24 08:32 08/10/24 08:32 08/10/24 08:32 08/10/24 08:32 Oxygen Delivery Method Room Air Weight: 132.449 kg Body Mass Index (BMI) 37.5 Intake & Output: Intake and Output for Last 24 Hours 08/08/24 08/09/24 08/10/24 23:59 23:59 23:59 Intake Total 1000 / 1000 3595.0 / 3595.0 1200 / 1200 Balance 1000 / 1000 3595.0 / 3595.0 1200 / 1200 Lab / Micro Data 08/10/24 04:47 08/10/24 04:47 Labs: Laboratory Results - last 24 hr 08/09/24 06:35: Diff Path Review September, PT 49.0 H, INR 5.2 H* 08/09/24 11:46: POC Glucose 179 H 08/09/24 14:15: Sodium 130 L, Potassium 3.5, Chloride 99, Carbon Dioxide 17.5 L, Anion Gap 13, BUN 26 H, Creatinine 1.73 H, Estim Creat Clear Calc 67.35, Est GFR (MDRD) Non-Af 45 L, BUN/Creatinine Ratio 15.1, Glucose 193 H, Calcium 8.2 08/09/24 16:08: POC Glucose 177 H 08/09/24 21:35: POC Glucose 233 H 08/10/24 04:47: PT 43.9 H, INR 4.5 H*, Sodium 131 L, Potassium 3.0 L, Chloride 101, Carbon Dioxide 18.8 L, Anion Gap 12, BUN 31 H, Creatinine 1.99 H, Estim Creat Clear Calc 58.55, Est GFR (MDRD) Non-Af 38 L, BUN/Creatinine Ratio 15.8, G lucose 135 H, Calcium 7.8, Phosphorus 5.2 H, Magnesium 1.8, Total Bilirubin 0.25, AST 9, ALT 5, Alkaline Phosphatase 71, Total Protein 5.0 L, Albumin 2.9 L, Globulin 2.2, Albumin/Globulin Ratio 1.3 Micro: Microbiology 08/06/24 03:00 Stool Enteric Bacteriology - Final 08/06/24 03:00 Stool Stool Lactoferrin - Final 08/06/24 03:00 Stool Clostridioides difficile (PCR) - Final 08/05/24 21:24 Stool Stool Occult Blood (EDUARD) - Final Occult Blood Positive Physical Exam Const alert, oriented x3, no apparent distress and well nourished; Negative for average body habitus or healthy appearing Constitutional Narrative: Morbidly obese, white male, sitting up in a chair at the bedside, appears well, nontoxic appearing, watching television General Appearance: cooperative HEENT normocephalic, head/scalp atraumatic, hearing grossly normal bilaterally and moist oral mucous membranes HEENT Narrative: Mallampati 4, no thrush Eyes conjunctivae normal Eyes Narrative: No scleral icterus Neck supple Neck Narrative: Neck is short and thick and trachea is midline Resp normal respiratory effort, no retractions, no use of accessory muscles and clear to auscultation bilaterally Cardio regular rate, regular rhythm, S1 normal heart sound, S2 normal heart sound, no murmurs, no rub, no gallops and no clicks GI normal to inspection, nondistended, normoactive bowel sounds, soft to palpation and non-tender Extremity no clubbing, cyanosis or edema Extremity Narrative: Pedal and radial pulses are 2+ Skin skin turgor normal, no jaundice, no petechiae and no mottling Neuro oriented x3, moves all extremities and no focal motor deficits Speech: speech normal Psych affect normal Psych Narrative: Very pleasant, interacts appropriately, eye contact is good, seems a bit less frustrated today Assessment & Plan Assessment/Plan (1) Bloody diarrhea: (2) Nausea and vomiting: QUALIFIERS: Vomiting type: bilious vomiting Qualified Code(s): R 11.14 - Bilious vomiting (3) Supratherapeutic INR: (4) Paroxysmal atrial fibrillation: (5) Obesity (BMI 30-39.9): (6) MARIELLA (obstructive sleep apnea): PLAN: Plan Persistent intractable diarrhea -Etiology remains unclear at this time -Plan is for EGD and colonoscopy tomorrow without the diagnosis -C. difficile is negative -Enteric panel is negative -Lactoferrin is negative -Sed rate and CRP are both unremarkable -Continue cholestyramine and Metamucil -Continue Imodium 2 mg p.o. 3 times daily per GI -White count remains elevated but bandemia seems to be improving -Blood cultures pending -Continue Flagyl and Cipro for now-->Cipro is renally dosed -Has outpatient colonoscopy pending for 08/18/2024 there is no acute reason to perform colonoscopy at this time. -GI following and plan is for scopes tomorrow Bright red blood per rectum -Resolved and hemoglobin stable Supratherapeutic INR -INR is trending down and now 4.5 from a peak of 8.0 -1 dose of vitamin K was given on 08/07/2024 5 mg IV -Continue to hold Coumadin -Repeat INR in a.m. -No bleeding at this time Hypokalemia -60 mill colons p.o. potassium Can repeat lab in a.m. -magnesium is within normal limits FRANSISCA -Dehydration likely related to profuse diarrhea and lack of sufficient oral intake - we did give him 2 L of IV fluids yesterday and his creatinine trended down and will ask them on LR at 125 cc/h but his creatinine worsened again this morning. -2 more liters given today and will run fluids with LR at 200 cc/h to follow continuously -Check retroperitoneal ultrasound -Patient states urine output has been fine -Check urine lites with urine sodium and urine creatinine -Avoid nephrotoxins -Hold most of his antihypertensives as his blood pressure has been trending down Metabolic acidosis -Mild -Suspect related to FRANSISCA and ongoing diarrhea -Repeat lab in a.m. DM-2 -Continue basal insulin at 35 units -Fasting sugar 135 -Continue SSI -Continue Accu-Cheks as ordered -Hold home oral agents -Cardiac/carb controlled diet Paroxysmal atrial fibrillation/flutter -Previous failed DCCV in 2021 -History of cryoablation in 2021 -Hold diltiazem and continue metoprolol with hold parameters -Continue to hold Coumadin due to supratherapeutic INR -Currently in sinus rhythm Essential 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 -Hold home diltiazem -Hold home Lasix -Hold home lisinopril -Continue home metoprolol with hold parameters -Hold home Aldactone Nonischemic cardiomyopathy -EF has improved -This was suspected to be tachycardia mediated -Continue goal-directed therapy as noted History of tobacco abuse -Remote -Encouraged ongoing cessation History of chronic diastolic heart failure with preserved ejection fraction -Continue home diuretics -Remains euvolemic Restless leg syndrome -Stable Depression -Continue home Wellbutrin Morbid obesity -recommend weight loss -Complicates treatment, prognosis, outcomes DVT prophylaxis -INR remains supratherapeutic CODE STATUS Full code Charges/Coding Visit Charges Inpatient E&M: 64395 Subs Hosp L3
[2024-08-10] MEDS: buPROPion (SR) 150 MG Tablet.SA PO ×2 (08:47→21:50)
[2024-08-10] MEDS: Potassium Chloride Oral Tablet 20 MEQ 60 MEQ PO (08:48)
[2024-08-10 09:07] LABS: Differential Indicated MANUAL DIFF
[2024-08-10 09:09] LABS: Eosinophil 19 % (0-5); Lymphocyte 20 % (19-41); Metamyelocyte 4 % (0-1); Monocyte 4 % (0-10); Neutrophil-Band 10 % (0-5); Neutrophil-Segmented 43 % (47-70); Total Cells Counted 100 (MANUAL DIFF)
[2024-08-10 09:10] LABS: Absolute Lymphocyte Count 3.98 X10^3/uL (0.83-4.51); Absolute Neutrophil Count 10.5 X10^3/uL (2.0-7.7); Platelet Estimate ADEQUATE (ADEQ); Red Cell Morphology NORM C+C NORMAL (NORM C&C)
[2024-08-10] MEDS: Lactated Ringers 1,000 ML 999 ML IV ×2 (10:17→11:24)
[2024-08-10] MEDS: Ciprofloxacin 200 MG/100 ML BAG 100 MG IV ×2 (10:23→21:50)
[2024-08-10 10:35] LABS: Bedside Glucose 125 mg/dL (74-106)
[2024-08-10] MEDS: Insulin Glargine-YFGN 100 UNIT/ML Pen 35 UNIT SC ×2 (12:10→21:50)
[2024-08-10] MEDS: Lactated Ringers 1,000 ML 200 ML IV ×2 (12:27→17:40)
[2024-08-10 12:30] LABS: Bedside Glucose 166 mg/dL (74-106)
[2024-08-10 14:15] LABS: Anion Gap 11 (5-15); BUN 28 mg/dL (4-19); BUN/Creat Ratio 18.5 RATIO (10-20); Calcium,Total 8.2 mg/dL (7.6-11.0); Carbon Dioxide 20.6 mmol/L (21.0-32.0); Chloride 101 mmol/L (98-108); Creatinine, Serum 1.49 mg/dL (0.70-1.20); EST Glomerular Filtration Rate 54 (>60); Estimated Creatinine Clearance 78.19 ml/min (50-250); Glucose 156 mg/dL (70-99); Potassium 3.1 mmol/L (3.3-5.1); Sodium Level 132 mmol/L (133-145)
[2024-08-10] MEDS: Bisacodyl 5 MG Tablet 20 MG PO (14:27)
[2024-08-10] MEDS: Polyethylene Glycol 3350 BOWEL PREP PO (16:27)
[2024-08-10] MEDS: Potassium Chloride Oral Tablet 20 MEQ 40 MEQ PO (16:42)
[2024-08-10 18:05] LABS: Bedside Glucose 131 mg/dL (74-106)
[2024-08-10] MEDS: Insulin Lispro 100 UNIT/ML INSULN.PEN SC (21:50)
[2024-08-10] MEDS: Metoprolol Tartrate 25 MG Tablet 75 MG PO (22:10)
[2024-08-10 22:30] LABS: Bedside Glucose 158 mg/dL (74-106)
[2024-08-11] VITALS (18 sets, daily range): BP systolic 94–129; BP diastolic 48–77; PULSE 61–74; RESP 16–18; TEMP 35.9–36.8; O2SAT 96–100; BMI 38.5
[2024-08-11] MEDS: Lactated Ringers 1,000 ML 200 ML IV ×3 (00:55→14:04)
[2024-08-11] MEDS: 0.9% Saline Lock 10 ML Syringe IV ×2 (00:56→10:15)
[2024-08-11 01:47] LABS: Bacteria 0 SEEN /hpf (None Seen); Mucous, Urine 0 SEEN /hpf (<or=2+); Red Blood Cells-Urine 0 SEEN /hpf (0-5); Squamous Epithelial Cells - UA 0 SEEN /hpf (0-5); White Blood Cells 0 SEEN /hpf (0-5)
[2024-08-11 01:52] LABS: Color, Urine Yellow (Yellow); Glucose, Dipstick Normal (Normal); Ketone-Dipstick Negative (Negative); Leukocyte Esterase-Dipstick 25 /ul (Negative); Nitrite-Dipstick Negative (Negative); Occult Blood-Urine Negative /ul (Negative); Protein-Dipstick 15 mg/dl (Negative); Urine Bilirubin Dipstick Negative (Negative); Urine Clarity Clear (Clear); Urine Urobilinogen Normal (Normal)
[2024-08-11 02:33] LABS: Urine Sodium < 20 mmol/L (Not Establ.)
[2024-08-11 04:49] LABS: Hematocrit 38.6 % (40-54); Hemoglobin 13.3 g/dL (13.0-16.5); Mean Corp Hgb Conc 34.5 g/dL (32-36); Mean Corpuscular Hgb 27.8 pg (27.0-32.0); Mean Corpuscular Volume 80.8 fL (80-94); Mean Platelet Vol. 10.7 fl (6.2-12.0); POSITIVE COUNT YES; POSITIVE DIFFERENTIAL YES; POSITIVE MORPHOLOGY YES; Platelet Count 198 K/mm3 (150-450); RBC Distribution Width CV 14.9 % (11.6-14.6); RBC Distribution Width SD 43.1 fl (35.1-43.9); Red Blood Count 4.78 M/mm3 (4.6-6.2); White Blood Count 15.5 K/mm3 (4.4-11.0)
[2024-08-11 05:00] LABS: Differential Indicated MANUAL DIFF
[2024-08-11 05:11] LABS: ALB/GLOB Ratio 1.6 RATIO (0.9-2.4); AST(SGOT) 12 U/L (<=37); Alanine Aminotransfer ALT/SGPT 7 U/L (<=46); Albumin, Serum 2.9 g/dL (3.5-5.0); Alkaline Phosphatase 71 U/L (40-129); Anion Gap 10 (5-15); BUN 19 mg/dL (4-19); BUN/Creat Ratio 17.2 RATIO (10-20); Calcium,Total 8.2 mg/dL (7.6-11.0); Carbon Dioxide 19.6 mmol/L (21.0-32.0); Chloride 105 mmol/L (98-108); Creatinine, Serum 1.12 mg/dL (0.70-1.20); EST Glomerular Filtration Rate 76 (>60); Estimated Creatinine Clearance 104.02 ml/min (50-250); Globulin 1.9 g/dL (2.2-4.2); Glucose 77 mg/dL (70-99); Potassium 3.4 mmol/L (3.3-5.1); Protein, Total 4.8 g/dL (5.9-8.4); Sodium Level 134 mmol/L (133-145); Total Bilirubin 0.22 mg/dL (0.00-1.30)
[2024-08-11 05:46] LABS: Metamyelocyte 2 % (0-1); Myelocyte 2 % (0-0); Neutrophil-Band 19 % (0-5); Neutrophil-Segmented 39 % (47-70); Total Cells Counted 100 (MANUAL DIFF)
[2024-08-11 05:47] LABS: Differential Comment SCANNED
[2024-08-11 05:48] LABS: Pathologist Review May foll; Reactive Lymphocyte 1+
[2024-08-11 05:49] LABS: Absolute Lymphocyte Count 4.19 X10^3/uL (0.83-4.51)
[2024-08-11] MEDS: metroNIDAZOLE 500 MG/100 ML BAG 100 MG IV ×3 (05:57→21:51)
--- NOTE | 2024-08-11 08:32 | US_ITS ---
PROCEDURE: KIDNEY AND BLADDER 08/11/2024 REASON FOR EXAM: FRANSISCA TECHNIQUE: Bilateral renal ultrasound. 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 [place]: No hydronephrosis seen. Cysts or Masses: No cysts or large solid renal masses. RIGHT Kidney Size: 14.4 cm x 5.9 cm x 4.5 cm Cortical Thickness (if discernible): 2.1 cm (>6mm is normal) LEFT Kidney Size: 10.9 cm x 5.4 cm x 3.5 cm Cortical Thickness (if discernible): 1.5 cm (>6mm is normal) The urinary bladder is only partially filled. There is thickening of the urinary bladder wall most likely due to incomplete distention. US/Kidney and Bladder IMPRESSION: Horseshoe kidney. No evidence of hydronephrosis. Partial distention of the urinary bladder with mild bladder wall thickening. Reading Location: [place] [id number]
[2024-08-11 09:41] LABS: Erythrocyte Sedimentation Rate 2 mm/hr (0-20)
[2024-08-11 09:45] LABS: LDH 184 U/L (87-241)
[2024-08-11] MEDS: Metoprolol Tartrate 25 MG Tablet 75 MG PO ×2 (10:14→21:53)
[2024-08-11] MEDS: Ciprofloxacin 200 MG/100 ML BAG 100 MG IV ×2 (10:14→21:50)
--- NOTE | 2024-08-11 11:39 | PRE.ANES_ITS ---
ASA Classification* ASA Classification ASA Classification: 3 Assessment & Plan Anesthesia* Anesthesia Assessment Anesthesia Assessment: Discussed sedation and/or anesthesia options, risks, benefits, and alternatives with patient/parents/legal guardian/POA. Questions invited. The patient/parents/legal guardian/POA seems to understand and agrees to proceed with anesthesia plan. Reviewed the physical assessment, medical history, allergy history and patient home medications list prior to surgery/procedure/anesthetic and documented any changes. Performed airway and anesthesia risk assessments. Anesthesia Type Anesthesia Type: MAC Anesthesia Focused Assessment* Temperature: 98.0 F Pulse Rate: 62 Blood Pressure: 111/67 Respiratory Rate: 18 Pulse Ox: 99 Airway Assessment Mouth opens: >3 cm Mallampati Score: II Focused Labs Anesthesia Preop lab: CBC WBC 15.5 K/mm3 (4.4-11.0) H 08/11/24 04:27 5 RBC 4.78 M/mm3 (4.6-6.2) 08/11/24 04:27 08/11/24 Hgb 13.3 g/dL (13.0-16.5) 08/11/24 04:27 08/11/24 Hct 38.6 % (40-54) L 08/11/24 04:27 08/11/24 Plt Count 198 K/mm3 (150-450) 08/11/24 04:27 08/11/24 CHEMISTRY Potassium 3.4 mmol/L (3.3-5.1) 08/11/24 04:27 08/11/24 Sodium 134 mmol/L (133-145) 08/11/24 04:27 08/11/24 Magnesium 1.8 mg/dL (1.5-2.2) 08/10/24 04:47 08/10/24 Phosphorus 5.2 mg/dL (2.7-4.5) H 08/10/24 04:47 08/10/24 BUN 19 mg/dL (4-19) 08/11/24 04:27 08/11/24 Creatinine 1.12 mg/dL (0.70-1.20) 08/11/24 04:27 08/11/24 Glucose 77 mg/dL (70-99) 08/11/24 04:27 08/11/24 POC Glucose 158 mg/dL (74-106) H 08/10/24 21:57 08/10/24 TSH 4.200 uIU/mL (0.300-4.200) 08/05/24 21:20 /10/05 COAG PT 43.9 SECONDS (11.7-14.9) H 08/10/24 04:47 07/14 Pre-Assessment Diagnosis/Proposed Procedure Planned Operative Procedure(s): EGD, colonoscopy. 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 When Was Last Pacemaker Check QUESTION #4 FULL TEXT: You/Your Family Experience fever (hyperthermia) with Anesthesia Last Oral Intake Last Oral intake: Last Oral Intake NPO since Meds taken in AM with sips of water? Meds patient instructed to take am of surgery PONV PONV - global transportation manager: PONV - global transportation manager Female HX of Motion Sickness HX of N/V After Surgery Non-Smoker Duration of Surgery greater than 60 minutes Number of Risk Factors PONV Score Height & Weight Height & Weight: Anesthesia: Height & Weight Height 6 ft 2 in 08/06/24 16:18 Weight: 136.1 kg 08/11/24 06:00 Body Mass Index (BMI) 38.5 08/11/24 06:00 Respiratory Assessment Respiratory Assessment - global transportation manager: Respiratory Tract Infection Hx - global transportation manager Hx Respiratory Tract Infection No 05/22/22 14:12 STOP Sleep Apnea STOP Sleep Apnea - global transportation manager: STOP Sleep Apnea - global transportation manager Hx Hypertension Yes 08/06/24 02:06 Hx Sleep Apnea Yes 08/06/24 02:06 CPAP Yes 08/06/24 02:06 BIPAP No 08/06/24 02:06 Do you snore loudly (louder than talking or can be heard Do you often feel tired/ fatigued/ sleepy during daytime? Has anyone observed you stop breathing during sleep? STOP Results Positive 08/06/24 02:06 QUESTION #5 FULL TEXT : Do you snore loudly (louder than talking or can be heard through closed doors)? 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 Specify any problems Hx of Preganancy in last 3 N/A 08/06/24 02:06 Months Nurse Filling Out Transfusion MBAUTZ 08/06/24 02:06 & Questions: Date: 08/06/24 08/06/24 02:06 Time: 02:08/06/24 02:06 Patient unable to answer at this time (ie. confused, unrespo /Reproduction History /Reproductive History - global transportation manager: /Reproductive Hx- global transportation manager Hx Now Gestational Age (in weeks): EDC: Hx Hx Para Hx Section SAB Active Medications Active Medications: Current Medications Generic Name Dose Route Start Last Admin Trade Name Freq PRN Reason Stop Dose Admin Bupropion HCl 150 mg 08/06/24 22:00 08/11/24 10:12 Bupropion (Sr) 150 Mg Tablet.Sa PO Not Given BID AMRIT Cholestyramine Resin 4 gm 08/07/24 14:24 08/11/24 05:58 Cholestyramine/Sucrose 4 Gm/Packet PO Not Given BIDAC AMRIT Diltiazem HCl 120 mg 08/07/24 10:00 08/09/24 09:39 Diltiazem Cd 120 Mg Capsule PO 120 mg DAILY AMRIT Administration Protocol Glucagon 1 mg 08/06/24 02:04 Glucagon 1 Mg/Ml Syringe IM X1 PRN HYPOGLYCEMIA Protocol Hydralazine HCl 5 mg 08/06/24 02:04 Hydralazine 20 Mg/Ml Vial IV Q8H PRN PRN SBP GREATER THAN 160 Protocol Dextrose 250 mls @ 0 mls/hr 08/06/24 02:04 Dextrose 10%-Water IV .Q0M PRN HYPOGLYCEMIA Protocol As Directed Sodium Chloride 100 mls @ 15 mls/hr 08/06/24 02:18 IV .Q6H40M PRN Saline Flush Sodium Chloride 100 mls @ 15 mls/hr 08/06/24 02:18 IV .Q6H40M PRN Additional IVPB Infusion Ciprofloxacin 200 mg in 100 mls @ 100 mls/hr 08/09/24 10:00 08/11/24 10:14 Cipro IV 100 mls/hr Q12 AMRIT Administration Metronidazole 500 mg in 100 mls @ 100 mls/hr 08/09/24 09:03 08/11/24 06:57 Flagyl IV Infused Q8 AMRIT Infusion Lactated Ringer's 1,000 mls @ 200 mls/hr 08/09/24 16:15 08/11/24 05:58 IV 08/11/24 16:16 200 mls/hr .Q5H AMRIT Administration Insulin Glargine 35 unit 08/08/24 22:00 08/11/24 10:11 Insulin Glargine-Yfgn 100 Unit/Ml Pen SC Not Given BID AMRIT Insulin Human Lispro 0 unit 08/06/24 16:00 08/11/24 06:00 Insulin Lispro 100 Unit/Ml Insuln.Pen SC Not Given ACHS AMRIT Protocol Lisinopril 2.5 mg 08/07/24 10:00 08/09/24 09:39 Lisinopril 2.5 Mg Tablet PO 2.5 mg DAILY AMRIT Administration Protocol Loperamide HCl 2 mg 08/08/24 22:00 08/11/24 05:57 Loperamide 2 Mg Capsule PO Not Given TID AMRIT Metoprolol Tartrate 75 mg 08/06/24 11:30 08/11/24 10:14 Metoprolol Tartrate 25 Mg Tablet PO 75 mg Q12H AMRIT Administration Morphine Sulfate 2 mg 08/06/24 02:04 Morphine 2 Mg/Ml Syringe IV Q4H PRN PRN Pain Score 6-10 Ondansetron HCl 4 mg 08/06/24 02:04 Ondansetron 4 Mg/2 Ml Vial IV Q6H PRN PRN NAUSEA/VOMITING Promethazine HCl 12.5 mg 08/06/24 02:04 Promethazine 25 Mg/Ml Syringe IM Q4H PRN PRN BREAKTHROUGH NAUSEA Psyllium Hydrophilic Mucilloid 1 packet 08/07/24 14:25 08/11/24 05:57 Psyllium 1 Packet PO Not Given TID AMRIT Sodium Chloride 10 - 40 ml 08/06/24 02:18 08/11/24 10:15 0.9% Saline Lock 10 Ml Syringe IV 10 ml UD PRN Administration SALINE FLUSH PFSH Medical History Wears glasses MRSA infection Insulin dependent diabetes mellitus Restless legs Former smoker CPAP (continuous positive airway pressure) dependence Sleep apnea History of echocardiogram Cardiology follow-up encounter History of atrial fibrillation Hx of colonic polyps Non-ischemic cardiomyopathy HFrEF (heart failure with reduced ejection fraction) Persistent atrial fibrillation senior living current use of anticoagulant Essential 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 Atrial fibrillation with rapid ventricular response MARIELLA (obstructive sleep apnea) Diabetes COPD (chronic obstructive pulmonary disease) Home Medications ?Medication ?Instructions ?Recorded ?Last Taken ?Type bupropion HCl 150 mg tablet,12 hr 150 mg PO BID antide pressant 08/14/21 05/23/22 History sustained-release metformin 1,000 mg tablet 1,000 mg PO BID dm 08/14/21 05/23/22 History lisinopril 2.5 mg tablet 2.5 mg PO DAILY 05/22/2204/05 History insulin glargine 100 unit/mL (3 30 unit subcut BID 09/04 Unknown History mL) subcutaneous pen (Lantus Solostar U-100 Insulin) diltiazem HCl 120 mg 120 mg PO DAILY #90 caps Unknown Rx capsule,extended release 24 hr spironolactone 25 mg tablet See Rx Instructions .Route 09/24/23 Unknown Rx .COMPLEX #30 tabs potassium chloride 10 mEq 10 meq PO DAILY #90 tabs 12/05 Unknown Rx tablet,extended release furosemide 40 mg tablet 80 mg PO DAILY 08/05/24 Unkn own History metoprolol tartrate 75 mg tablet 75 mg PO Q12H 5 Unknown History warfarin 2 mg tablet 2 mg PO WETH 08/05/24 Unknow n History warfarin 5 mg tablet 10 mg PO DAILY 08/05/24 Unkn own History Allergy/AdvReac Type Severity Reaction Status Date / Time Penicillins Allergy PT UNSURE Verified 08/05/24 20:31 OF REACTION Family History Other COPD (chronic obstructive pulmonary disease) Colon cancer Heart disease Lung cancer Testicular cancer Surgical History History of cardiac catheterization Status post cryoablation of arrhythmia (03/01/22) History of cardioversion (10/27/21) Bunion H/O hernia repair Social History Smoking Status: Former smoker alcohol intake: never substance use type: does not use caffeine: Yes Type: coffee Number of servings: 1 Review of Systems (Anesthesia) ROS Narrative System reviewed and no additional complaints, except as documented.
--- NOTE | 2024-08-11 11:53 | PCM.PN.BLA ---
Progress Note The patient prep for colonoscopy and upper endoscopy today. He is not having abdominal pain. All questions concerns answered. Physical Exam Const alert, oriented x3, no apparent distress and well nourished; Negative for average body habitus or healthy appearing Constitutional Narrative: Morbidly obese, white male, sitting up in a chair at the bedside, appears well, nontoxic appearing, watching television General Appearance: cooperative HEENT normocephalic, head/scalp atraumatic, hearing grossly normal bilaterally and moist oral mucous membranes HEENT Narrative: Mallampati 4, no thrush Eyes conjunctivae normal Eyes Narrative: No scleral icterus Neck supple Neck Narrative: Neck is short and thick and trachea is midline Resp normal respiratory effort, no retractions, no use of accessory muscles and clear to auscultation bilaterally Cardio regular rate, regular rhythm, S1 normal heart sound, S2 normal heart sound, no murmurs, no rub, no gallops and no clicks GI normal to inspection, nondistended, normoactive bowel sounds, soft to palpation and non-tender Extremity no clubbing, cyanosis or edema Extremity Narrative: Pedal and radial pulses are 2+ Skin skin turgor normal, no jaundice, no petechiae and no mottling Neuro oriented x3, moves all extremities and no focal motor deficits Speech: speech normal Psych affect normal Psych Narrative: Very pleasant, interacts appropriately, eye contact is good, seems a bit less frustrated today Assessment & Plan Assessment/Plan (1) Bloody diarrhea: (2) Nausea and vomiting: QUALIFIERS: Vomiting type: bilious vomiting Qualified Code(s): R11.14 - Bilious vomiting (3) Food poisoning: (4) Supratherapeutic INR: (5) Paroxysmal atrial fibrillation: (6) Obesity (BMI 30-39.9): (7) MARIELLA (obstructive sleep apnea): PLAN: Plan 58 yo with Bloody Diarrhea with Nausea and Vomiting causing Bilious Emesis initially triggered by suspected Food Poisoning with CT scan of abdomen/pelvis Differential Diagnosis- Inflammatory bowel disease, Microscopic colitis, IBS with diarrhea. PLAN: Persistent intractable diarrhea -Etiology remains unclear at this time -Plan is for EGD and colonoscopy tomorrow without the diagnosis -C. difficile is negative -Enteric panel is negative -Lactoferrin is negative -Sed rate and CRP are both unremarkable -Continue cholestyramine and Metamucil -Continue Imodium 2 mg p.o. 3 times daily per GI -White count remains elevated but bandemia seems to be improving -Blood cultures pending -Continue Flagyl and Cipro for now-->Cipro is renally dosed -He will get an egd and colonoscopy on 08/11/2024 today Visit Charges Inpatient E&M: 97851 Subs Hosp L3
--- NOTE | 2024-08-11 11:54 | PN.HOSP_ITS ---
Reason for Visit Reason for Visit: Diagnoses Bacterial foodborne intoxication, unspecified (08/06/24) Obesity, unspecified (08/06/24) Obstructive sleep apnea (adult) (pediatric) (08/06/24) Paroxysmal atrial fibrillation (08/06/24) Bilious vomiting (08/06/24) Diarrhea, unspecified (08/06/24) Abnormal coagulation profile (08/06/24) Adverse effect of unspecified drugs, medicaments and biological substances, initial encounter (08/06/24) Personal history of colon polyps (08/06/24) Personal history of other diseases of the digestive system (08/06/24) Subjective Subjective Patient is a 58-year-old Male with history of paroxysmal A-fib flutter on systemic anticoagulation with warfarin who presented with nausea vomiting as well as diarrhea of 3 days duration. She did develop bright red blood per rectum. Admitted to monitored bed with consultation placed to GI Objective Data Objective Data Vital Signs: Vital Signs Temp Pulse Resp BP Pulse Ox O2 Del Method 98.0 F 62 18 111/67 99 Room Air 08/11/24 11:39 08/11/24 11:39 08/11/24 11:39 08/11/24 11:39 08/11/24 11:39 08/11/24 09:03 Oxygen Delivery Method Room Air Weight: 136.1 kg Body Mass Index (BMI) 38.5 Intake & Output: Intake and Output for Last 24 Hours 08/09/24 08/10/24 08/11/24 23:59 23:59 23:59 Intake Total 3595.0 / 3595.0 8027.5 / 8027.5 1100 / 1100 Output Total 300 / 300 Balance 3595.0 / 3595.0 8027.5 / 7777.5 800 / 800 Lab / Micro Data 08/11/24 04:27 08/11/24 04:27 Labs: Laboratory Results - last 24 hr 08/10/24 12:07: POC Glucose 166 H 08/10/24 13:30: Sodium 132 L, Potassium 3.1 L, Chloride 101, Carbon Dioxide 20.6 L, Anion Gap 11, BUN 28 H, Creatinine 1.49 H, Estim Creat Clear Calc 78.19, Est GFR (MDRD) Non-Af 54 L, BUN/Creatinine Ratio 18.5, Glucose 156 H, Calcium 8.2 08/10/24 17:39: POC Glucose 131 H 08/10/24 21:57: POC Glucose 158 H 08/10/24 22:20: Urine Color Yellow, Urine Clarity Clear, Urine pH 6.0, Ur Specific [place] 1.010, Urine Protein 15 H, Urine Glucose (UA) Normal, Urine Ketones Negative, Urine Occult Blood Negative, Urine Nitrite Negative, Urine Bilirubin Negative, Urine Urobilinogen Normal, Ur Leukocyte Esterase 25 H, Urine RBC 0 SEEN, Urine WBC 0 SEEN, Ur Squamous Epith Cells 0 SEEN, Urine Bacteria 0 SEEN, Urine Mucus 0 SEEN, Ur Random Sodium < 20, Urine Creatinine 82.00 08/11/24 04:27: WBC 15.5 H, RBC 4.78, Hgb 13.3, Hct 38.6 L, MCV 80.8, MCH 27.8, MCHC 34.5, RDW Std Deviation 43.1, RDW Coeff of Jett 14.9 H, Plt Count 198, MPV 10.7, Neut % (Auto) Not Reportable, Absolute Neuts (auto) 9.0 H, Absolute Lymphs (auto) 4.19, Total Counted 100, Neutrophils % (Manual) 39 L, Band Neutrophils % 19 H, Metamyelocytes % 2 H, Myelocytes % 2 H, Differential Comment SCANNED, Diff Path Review May foll, Reactive Lymphocytes 1+, ESR 2, Sodium 134, Potassium 3.4, Chloride 105, Carbon Dioxide 19.6 L, Anion Gap 10, BUN 19, Creatinine 1.12, Estim Creat Clear Calc 104.02, Est GFR (MDRD) Non-Af 76, BUN/Creatinine Ratio 17.2, Glucose 77, Calcium 8.2, Total Bilirubin 0.22, AST 12, ALT 7, Alkaline Phosphatase 71, Lactate Dehydrogenase 184, C-React Prot Ext Range 10.40 H, Total Protein 4.8 L, Albumin 2.9 L, Globulin 1.9 L, Albumin/Globulin Ratio 1.6, DIANA-1 Antibody TNP, SS-A/Ro IgG Antibody TNP, SS-B/La IgG Antibody TNP, Sm (Roe) Antibody TNP, [employer] Antibody TNP, Antichromatin Antibodies TNP, Centromere B Antibody TNP Micro: Microbiology 08/06/24 03:00 Stool Enteric Bacteriology - Final 08/06/24 03:00 Stool Stool Lactoferrin - Final 08/06/24 03:00 Stool Clostridioides difficile (PCR) - Final 08/05/24 21:24 Stool Stool Occult Blood (EDUARD) - Final Occult Blood Positive Radiography Diagnostic Testing: Radiology Impression Renal Ultrasound 08/11/24 08:32 IMPRESSION: Horseshoe kidney. No evidence of hydronephrosis. Partial distention of the urinary bladder with mild bladder wall thickening. Reading Location: [facility] Physical Exam Narrative GENERAL: cooperative HEENT: Atraumatic; normocephalic EYES; Anicteric, Normal Conjunctiva NECK; supple, normal thyroid, RESPIRATORY: Diminished to auscultation CARDIOVASCULAR: Regular S1 S2, GI: soft, normoactive bowel sounds, : No Renal angle tenderness; EXTREMITIES: No edema, no clubbing, MUSCULOSKELETAL: no muscle wasting NEURO: Awake; no lateralizing signs. SKIN: No Rash PSYCH; Flat affect Assessment & Plan Assessment/Plan (1) Bloody diarrhea: (2) Nausea and vomiting: QUALIFIERS: Vomiting type: bilious vomiting Qualified Code(s): R 11.14 - Bilious vomiting (3) Supratherapeutic INR: (4) Paroxysmal atrial fibrillation: (5) Obesity (BMI 30-39.9): (6) MARIELLA (obstructive sleep apnea): PLAN: Plan Patient is a 58-year-old Male with history of paroxysmal A-fib flutter on systemic anticoagulation with warfarin who presented with nausea vomiting as well as diarrhea of 3 days duration. She did develop bright red blood per rectum. Admitted to monitored bed with consultation placed to GI 1. Bloody diarrhea ? Patient admitted to monitored bed patient is on systemic anticoagulation with Coumadin held. Patient was apparently scheduled to undergo outpatient colonoscopy on 08/18/2024, given her presentation consult was placed to Dr. Brito for endoscopic evaluation was in the hospital. Patient was found to have leukocytosis with bandemia subsequently started on antibiotic therapy with ciprofloxacin and Flagyl. Dr. Brito also ordered DAISY with reflex panel to rule out inflammatory bowel disease -Colonoscopy performed on 08/11/[address] Brito did show Impressions : - Diverticulosis in the entire examined colon. - Two 1 to 2 mm polyps in the transverse colon and in the ascending colon, removed with a hot snare. Resected and retrieved. - Congested mucosa in the entire examined colon. Biopsied. - Mild inflammation was found in the ileum secondary to ileitis. Biopsied. 2.Paroxysmal atrial fibrillation/flutter -Previous failed DCCV in 2021; cryoablation in 2021 patient is on rate controlling agent with diltiazem as well as metoprolol continued. Also on systemic anticoagulation with Coumadin she however presented with supratherapeutic INR and given her bleeding per rectum Coumadin was held 3. Coumadin induced coagulopathy ? Patient did receive vitamin K subsequent monitoring with daily INR ordered 4. Hypokalemia -Corrected per protocol 5. Acute kidney injury ? Secondary to severe dehydration from diarrhea and decreased oral intake patient resuscitated with IV fluid with subsequent monitoring with daily BMPs ordered 6. Metabolic acidosis ? Secondary to FRANSISCA do expect improvement with treatment of underlying etiology 7. Diabetes mellitus type II -patient's oral hypoglycemics held. Placed on long acting insulin, Accu-Cheks a.c. and at bedtime and covered with sliding scale insulin 8. Essential 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 ? Patient blood pressure remained stable patient is on Lasix and lisinopril held given her presentation 9. Class II obesity with BMI of 38.5 ? Complicating care weight loss advised 10. Nonischemic cardiomyopathy ? Thought to be tachycardia mediated monitored with serial echoes as outpatient 11. Chronic congestive heart failure with preserved ejection fraction ? Patient is on diuretic therapy held given her presentation?FRANSISCA 12. Tobacco dependence ? Counseled on cessation, offered nicotine patch for tobacco cravings 13.Depression -Continued home Wellbutrin 14. DVT prophylaxis -INR remains supratherapeutic Time spent in the patient's overall evaluation,decision-making process, review of diagnostic data, adjustment of management, discussion with other providers, nursing nursing and ancillary staff involved in patient's care documentation, 50 Minutes Charges/Coding Visit Charges Inpatient E&M: 59580 [facility] L3
--- NOTE | 2024-08-11 12:15 | COLBX_PTH ---
PATIENT: ALFIE BACON LOC: [facility] U#:[id number] AGE/SX: 58/M ROOM: [facility] RE08/06/[address]: Dr. Yfn Mccarthy MD : 1965 BED: 1 DIS: 08/12/2024 SPEC #: [id number] RECD: 08/11/24 13:45 STATUS: EVETTE RECrissy #: [id number] ARNOLDO: 08/11/24 12:[address]: Bipin Brito DEPT: SURGICAL PATHOLOGY RECD BY: Noble Shearer ENTERED: 08/11/24 13:46 SP TYPE: COLON BX OTHR DR: DO Dr. Yfn Hyde MD Dr. Hannah Miedel, MD Dr. Kathryn Lee, Tissues: A - Duodenum, NOS B - Gastric mucous membrane C - Esophagus, NOS D - Transverse colon E - Ascending colon F - Ileum, NOS G - COLON BIOPSY Procedures: Immunohistochemical Stains Surgery Specimen Level IV HEADER OPERATION: Colonoscopy with polypectomy and biopsy, EGD with biopsy PRE-OP DIAGNOSIS: Bloody diarrhea, nausea and vomiting TISSUE SUBMITTED: A- Duodenum biopsy, B- Gastric body biopsy, C- Distal esophagus biopsy,D- Transverse polyp, E- Ascending colon polyp, F- Terminal ileum biopsy, G- Random colon biopsy MICROSCOPIC DIAGNOSIS A. Small Intestine, Duodenum, Biopsy: * Mild acute inflammation with increased eosinophils and Julius gland hyperplasia - see note. * Essentially normal villous architecture, negative for increased intraepithelial lymphocytes. Note: Acute inflammation with Julius gland hyperplasia is suggestive of peptic injury. B. Stomach, Gastric Body, Biopsy: * Active chronic gastritis with scattered eosinophils. * IHC negative for H pylori organisms. C. Distal Esophagus, Biopsy: * Squamous mucosa negative for eosinophils. * Columnar mucosa negative for goblet cell metaplasia. D. Transverse Colon, Polyp, Biopsy: * Tubular adenoma - see note. Note: The tissue is distorted with cautery artifact. E. Ascending Colon, Polyp, Biopsy: * Tubular adenoma. Note: The tissue is distorted with cautery artifact. F. Small Intestine, Terminal Ileum, Biopsy: * No specific pathologic change. G. Colon, Random, Biopsy: * No specific pathologic change. * The histologic features of microscopic colitis are not demonstrated. MICROSCOPIC DESCRIPTION Slides are reviewed. These tests were developed and their performance characteristics determined by [facility]. They may not have been cleared or approved by the U.S. Food and Drug Administration. The FDA has determined that such clearance or approval is not necessary. The above immunohistochemical/dualISH markers are ordered and reviewed by the Pathologist. GROSS DESCRIPTION A. Received in formalin in a container labeled with the patient's name, date of , and duodenum are multiple keller-pink fragments of mucosal tissue measuring 1.0 x 0.7 x 0.3 cm in aggregate. Entirely submitted in A1.B. Received in formalin in a container labeled with the patient's name, date of , and gastric body biopsy for H. pylori and path are multiple keller-pink fragments of mucosal tissue measuring 0.8 x 0.6 x 0.3 cm in aggregate. Entirely submitted in B1. C. Received in formalin in a container labeled with the patient's name, date of , and distal esophagus biopsy are 2 keller-pink fragments of mucosal tissue, each measuring 0.5 x 0.5 x 0.2 cm. Entirely submitted in C1. D. Received in formalin in a container labeled with the patient's name, date of , and transverse polyp are multiple, tiny keller-pink fragments of mucosal tissue measuring 0.8 x 0.7 x 0.2 cm in aggregate. Entirely submitted in D1. E. Received in formalin in a container labeled with the patient's name, date of , and ascending colon polyp are multiple keller-pink fragments of soft tissue and fecal debris measuring 2.5 x 1.0 x 0.3 cm in aggregate. Entirely submitted in E1. F. Received in formalin in a container labeled with the patient's name, date of , and terminal ileum biopsy are 3 keller-pink fragments of mucosal tissue, each measuring 0.3 x 0.2 x 0.2 cm. Entirely submitted in F1. G. Received in formalin in a container labeled with the patient's name, date of , and random colon biopsy are multiple keller-pink fragments of mucosal tissue measuring 1.4 x 0.7 x 0.3 cm in aggregate. Entirely submitted in G1. [facility] 08-11-2024 CPT:57961x0,64135
--- NOTE | 2024-08-11 12:51 | OP.EGD_ITS ---
Patient Name: Pedro Karimi Procedure Date: 08/11/2024 11:22 AM Date of : 1965 Age: 58 Procedure: Upper GI endoscopy Indications: Epigastric abdominal pain Providers: Bipin Brito DO Medicines: Monitored Anesthesia Care Patient Profile: This is a 58 year old male. Refer to note in patient chart for documentation of history and physical. Patient has symptoms of acute abdominal cramping and acute epigastric abdominal pain. Complications: No immediate complications. Procedure: Pre-Anesthesia Assessment: - Prior to the procedure, a History and Physical was performed, and patient medications and allergies were reviewed. The patient is competent. The risks and benefits of the procedure and the sedation options and risks were discussed with the patient. All questions were answered and informed consent was obtained. Patient identification and proposed procedure were verified by the physician in the pre-procedure area. Mental Status Examination: alert and oriented. Airway Examination: normal oropharyngeal airway and neck mobility. Respiratory Examination: clear to auscultation. CV Examination: normal. ASA Grade Assessment: II - A patient with mild systemic disease. After reviewing the risks and benefits, the patient was deemed in satisfactory condition to undergo the procedure. The anesthesia plan was to use monitored anesthesia care (MAC). Immediately prior to administration of medications, the patient was re-assessed for adequacy to receive sedatives. The heart rate, respiratory rate, oxygen saturations, blood pressure, adequacy of pulmonary ventilation, and response to care were monitored throughout the procedure. The physical status of the patient was re-assessed after the procedure. After obtaining informed consent, the endoscope was passed under direct vision. Throughout the procedure, the patient's blood pressure, pulse, and oxygen saturations were monitored continuously. The Colonoscope was introduced through the mouth, and advanced to the fourth part of the duodenum. Small bowel enteroscopy was deemed necessary. The upper GI endoscopy was accomplished without difficulty. The patient tolerated the procedure well. Scope In: 12:06:02 PM Scope Out: 12:12:41 PM Total Procedure Duration Time 0 hours 6 minutes 39 seconds Findings: LA Grade B (one or more mucosal breaks greater than 5 mm, not extending between the tops of two mucosal folds) esophagitis with no bleeding was found 36 to 38 cm from the incisors. Biopsies were taken with a cold forceps for histology. Verification of patient identification for the specimen was done. Estimated blood loss was minimal. Localized moderate inflammation characterized by erosions and erythema was found in the gastric body. Biopsies were taken with a cold forceps for histology. Verification of patient identification for the specimen was done. Estimated blood loss was minimal. Biopsies were taken with a cold forceps for Helicobacter pylori testing. Verification of patient identification for the specimen was done. Estimated blood loss was minimal. Patchy mild inflammation characterized by erythema was found in the first portion of the duodenum, in the second portion of the duodenum, in the third portion of the duodenum and in the fourth portion of the duodenum. Biopsies were taken with a cold forceps for histology. Verification of patient identification for the specimen was done. Estimated blood loss was minimal. Impression: - LA Grade B erosive esophagitis with no bleeding. Biopsied. - Acute gastritis. Biopsied. - Erosive duodenitis. Biopsied. Recommendation: - [facility]. - Resume previous diet. - Continue present medications. - Await pathology results. Procedure Code(s): --- Professional --- 78031, Small intestinal endoscopy, enteroscopy beyond second portion of duodenum, not including ileum; with biopsy, single or multiple CPT copyright 2021 [employer]. All rights reserved. The codes documented in this report are preliminary and upon consumer affairs director review may be revised to meet current compliance requirements. Bipin Brito DO 08/11/2024 12:50:41 PM This report has been signed electronically. Number of Addenda: 0 Note Initiated On: 08/11/2024 11:22 AM
--- NOTE | 2024-08-11 12:51 | OP.CCLET_ITS ---
08/11/2024 Margot Mai [place] [id number] [place] [address] Re : Upper GI endoscopy procedure for Pedro Karimi Dear Dr. Mai This procedure was performed on Sunday, August 11, 2024. My impressions and recommendations are as follows: Impressions : - LA Grade B erosive esophagitis with no bleeding. Biopsied. - Acute gastritis. Biopsied. - Erosive duodenitis. Biopsied. Recommendations : - [facility]. - Resume previous diet. - Continue present medications. - Await pathology results. My findings are described in the full procedure note, which is enclosed. If I can be of further assistance, please feel free to contact me at . Sincerely, Bipin Briot, 08/11/2024 12:50:41 PM This report has been signed electronically.
--- NOTE | 2024-08-11 12:54 | PCM.POST.ANE ---
Anesthesia: Postop Eval I Current Vital Signs Temperature: 97 F Pulse Rate: 62 Blood Pressure: 103/48 Respiratory Rate: 16 Pulse Ox: 98 Oxygen Delivery Method: Room Air Assessment Airway patent: Yes Spontaneous unlabored respirations: Yes Mental status: Awake and Calm nausea: No Vomiting: No Anesthesia Complication: No Fluid Hydration Crystalloid volume administer (ml): 90 Total IV fluid infused: 90 Progress Note Anesthesia document: Postop Eval 1 completed: Yes
--- NOTE | 2024-08-11 12:55 | OP.CCLET_ITS ---
08/11/2024 Margot Mai [place] [id number] [address] Re : Colonoscopy procedure for Pedro Karimi Dear Dr. Mai This procedure was performed on Sunday, August 11, 2024. My impressions and recommendations are as follows: Impressions : - Diverticulosis in the entire examined colon. - Two 1 to 2 mm polyps in the transverse colon and in the ascending colon, removed with a hot snare. Resected and retrieved. - Congested mucosa in the entire examined colon. Biopsied. - Mild inflammation was found in the ileum secondary to ileitis. Biopsied. Recommendations : - [facility]. - Diabetic (ADA) diet. - Continue present medications. - Await pathology results. - Repeat colonoscopy in 1 year for surveillance. My findings are described in the full procedure note, which is enclosed. If I can be of further assistance, please feel free to contact me at . Sincerely, Bipin Brito, 08/11/2024 12:54:42 PM This report has been signed electronically.
--- NOTE | 2024-08-11 12:55 | OP.COLON_ITS ---
Patient Name: Pedro Karimi Procedure Date: 08/11/2024 12:12 PM Date of : 1965 Age: 58 Procedure: Colonoscopy Indications: Clinically significant diarrhea of unexplained origin Providers: Bipin Brito DO Medicines: Monitored Anesthesia Care Patient Profile: This is a 58 year old male. Refer to note in patient chart for documentation of history and physical. Patient has symptoms of acute abdominal cramping and acute epigastric abdominal pain. Last Colonoscopy: 1 year ago. Complications: No immediate complications. Procedure: Pre-Anesthesia Assessment: - Prior to the procedure, a History and Physical was performed, and patient medications and allergies were reviewed. The patient is competent. The risks and benefits of the procedure and the sedation options and risks were discussed with the patient. All questions were answered and informed consent was obtained. Patient identification and proposed procedure were verified by the physician in the pre-procedure area. Mental Status Examination: alert and oriented. Airway Examination: normal oropharyngeal airway and neck mobility. Respiratory Examination: clear to auscultation. CV Examination: normal. ASA Grade Assessment: II - A patient with mild systemic disease. After reviewing the risks and benefits, the patient was deemed in satisfactory condition to undergo the procedure. The anesthesia plan was to use monitored anesthesia care (MAC). Immediately prior to administration of medications, the patient was re-assessed for adequacy to receive sedatives. The heart rate, respiratory rate, oxygen saturations, blood pressure, adequacy of pulmonary ventilation, and response to care were monitored throughout the procedure. The physical status of the patient was re-assessed after the procedure. After I obtained informed consent, the scope was passed under direct vision. Throughout the procedure, the patient's blood pressure, pulse, and oxygen saturations were monitored continuously. The Colonoscope was introduced through the anus and advanced to the terminal ileum. The colonoscopy was performed without difficulty. The patient tolerated the procedure well. The quality of the bowel preparation was adequate. The terminal ileum, ileocecal valve, appendiceal orifice, and rectum were photographed. Scope In: 12:14:13 PM Scope Withdrawal Time 0 hours 19 minutes 25 seconds Scope Out: 12:42:18 PM Total Procedure Duration Time 0 hours 28 minutes 5 seconds Findings: The perianal and digital rectal examinations were normal. Multiple small and large-mouthed diverticula were found in the entire colon. Two sessile polyps were found in the transverse colon and ascending colon. The polyps were 1 to 2 mm in size. These polyps were removed with a hot snare. Resection and retrieval were complete. Verification of patient identification for the specimen was done. Estimated blood loss was minimal. An area of mildly congested mucosa was found in the entire colon. Biopsies were taken with a cold forceps for histology. Verification of patient identification for the specimen was done. Estimated blood loss was minimal. Patchy mild inflammation characterized by erythema was found in the distal ileum and in the terminal ileum. Biopsies were taken with a cold forceps for histology. Verification of patient identification for the specimen was done. Estimated blood loss was minimal. Impression: - Diverticulosis in the entire examined colon. - Two 1 to 2 mm polyps in the transverse colon and in the ascending colon, removed with a hot snare. Resected and retrieved. - Congested mucosa in the entire examined colon. Biopsied. - Mild inflammation was found in the ileum secondary to ileitis. Biopsied. Recommendation: - [facility]. - Diabetic (ADA) diet. - Continue present medications. - Await pathology results. - Repeat colonoscopy in 1 year for surveillance. Procedure Code(s): --- Professional --- 14466, Colonoscopy, flexible; with removal of tumor(s), polyp(s), or other lesion(s) by snare technique 78234, 59, Colonoscopy, flexible; with biopsy, single or multiple CPT copyright 2021 [employer]. All rights reserved. The codes documented in this report are preliminary and upon sea captain review may be revised to meet current compliance requirements. Bipin Brito DO 08/11/2024 12:54:42 PM This report has been signed electronically. Number of Addenda: 0 Note Initiated On: 08/11/2024 12:12 PM
--- NOTE | 2024-08-11 13:46 | PCM.POSTANE2 ---
Anesthesia Postop Eval I Sum Postop Eval Completion status Anesthesia document: Postop Eval 1 completed: Yes Anesthesia Postop Eval I Summary Anesthesia Postop Eval I Summary: Anesthesia Postop Eval I: Assessment Summary Airway patent Yes 08/11/24 12:56 [email or web address] Spontaneous unlabored Yes 08/11/24 12:56 [email or web address] respirations Mental status Awake,Calm 08/11/24 12:56 [email or web address] nausea No 08/11/24 12:56 [email or web address] Vomiting No 08/11/24 12:56 [email or web address] Anesthesia Postop Eval I: Fluid Summary Crystalloid volume administer 90 08/11/24 12:56 [email or web address] (ml) Colloids volume administered ( ml) Blood Product volume administered (ml) Total IV fluid infused 90 08/11/24 12:56 [email or web address] Anesthesia Postop Eval I: Summary Notes Anesthesia Complication No 08/11/24 12:56 [email or web address] Anesthesia Complication Comment: Post-operative progress note Anesthesia: Postop Eval II Evaluation Mental status: Awake Pain Level: 0 nausea: No Vomiting: No
[2024-08-11] MEDS: Budesonide 3 MG CAPSULE.EC 9 MG PO (14:03)
[2024-08-11] MEDS: Colestipol 1 GM TABLET 2 GM PO ×2 (14:04→21:50)
[2024-08-11] MEDS: Loperamide 2 MG Capsule PO ×2 (14:05→21:51)
[2024-08-11 16:52] LABS: Bedside Glucose 87 mg/dL (74-106)
[2024-08-11 17:01] LABS: Bedside Glucose 170 mg/dL (74-106)
[2024-08-11] MEDS: Insulin Lispro 100 UNIT/ML INSULN.PEN SC ×2 (17:27→21:51)
[2024-08-11] MEDS: Psyllium 1 PACKET PO (21:52)
[2024-08-11] MEDS: Insulin Glargine-YFGN 100 UNIT/ML Pen 35 UNIT SC (21:52)
[2024-08-11] MEDS: buPROPion (SR) 150 MG Tablet.SA PO (21:52)
[2024-08-11 22:32] LABS: Bedside Glucose 210 mg/dL (74-106)
[2024-08-12 03:35] VITALS: BP 120/67; PULSE 74; RESP 16; TEMP 36.6; O2SAT 100
[2024-08-12 05:15] VITALS: BMI 38.6
[2024-08-12 06:08] LABS: Hematocrit 36.7 % (40-54); Hemoglobin 12.4 g/dL (13.0-16.5); Mean Corp Hgb Conc 33.8 g/dL (32-36); Mean Corpuscular Hgb 28.1 pg (27.0-32.0); POSITIVE COUNT YES; POSITIVE DIFFERENTIAL YES; POSITIVE MORPHOLOGY YES; Platelet Count 162 K/mm3 (150-450); RBC Distribution Width SD 45.1 fl (35.1-43.9); Red Blood Count 4.42 M/mm3 (4.6-6.2); White Blood Count 11.1 K/mm3 (4.4-11.0)
[2024-08-12 06:18] LABS: International Normalized Ratio 1.8; Prothrombin Time (Protime)PT. 21.1 SECONDS (11.7-14.9)
[2024-08-12] MEDS: metroNIDAZOLE 500 MG/100 ML BAG 100 MG IV (06:22)
[2024-08-12] MEDS: Colestipol 1 GM TABLET 2 GM PO (06:22)
[2024-08-12] MEDS: Loperamide 2 MG Capsule PO (06:22)
[2024-08-12] MEDS: Psyllium 1 PACKET PO (06:23)
[2024-08-12] MEDS: Insulin Lispro 100 UNIT/ML INSULN.PEN SC (06:23)
[2024-08-12] MEDS: 0.9% Saline Lock 10 ML Syringe IV (06:23)
[2024-08-12 06:30] LABS: Differential Indicated MANUAL DIFF
[2024-08-12 06:40] LABS: Anion Gap 12 (5-15); BUN 13 mg/dL (4-19); BUN/Creat Ratio 17.2 RATIO (10-20); Calcium,Total 7.9 mg/dL (7.6-11.0); Carbon Dioxide 16.8 mmol/L (21.0-32.0); Chloride 109 mmol/L (98-108); Creatinine, Serum 0.78 mg/dL (0.70-1.20); EST Glomerular Filtration Rate 103 (>60); Estimated Creatinine Clearance 151.79 ml/min (50-250); Glucose 189 mg/dL (70-99); Magnesium 1.6 mg/dL (1.5-2.2); Potassium 3.1 mmol/L (3.3-5.1); Sodium Level 137 mmol/L (133-145)
[2024-08-12 06:48] LABS: Bedside Glucose 199 mg/dL (74-106)
[2024-08-12 07:20] LABS: Basophil 1 % (0-1); Eosinophil 13 % (0-5); Lymphocyte 19 % (19-41); Metamyelocyte 1 % (0-1); Monocyte 8 % (0-10); Neutrophil-Band 4 % (0-5); Neutrophil-Segmented 54 % (47-70); Total Cells Counted 100 (MANUAL DIFF)
[2024-08-12 07:21] LABS: Platelet Estimate ADEQUATE (ADEQ); Red Cell Morphology NORM C+C NORMAL (NORM C&C)
[2024-08-12 07:22] LABS: Absolute Lymphocyte Count 2.11 X10^3/uL (0.83-4.51); Absolute Neutrophil Count 6.5 X10^3/uL (2.0-7.7)
[2024-08-12 07:43] VITALS: PULSE 76
[2024-08-12 07:57] VITALS: BP 150/74; PULSE 65; RESP 18; TEMP 36.5; O2SAT 99
--- NOTE | 2024-08-12 08:16 | PCM.PN.HOSP ---
Reason for Visit Reason for Visit: Diagnoses Bacterial foodborne intoxication, unspecified (08/06/24) Obesity, unspecified (08/06/24) Obstructive sleep apnea (adult) (pediatric) (08/06/24) Paroxysmal atrial fibrillation (08/06/24) Bilious vomiting (08/06/24) Diarrhea, unspecified (08/06/24) Abnormal coagulation profile (08/06/24) Adverse effect of unspecified drugs, medicaments and biological substances, initial encounter (08/06/24) Personal history of colon polyps (08/06/24) Personal history of other diseases of the digestive system (08/06/24) Subjective Subjective Patient seen bleeding has subsided. INR down to 1.8. Plan is for patient to be assessed for possible discharge Objective Data Objective Data Vital Signs: Vital Signs Temp Pulse Resp BP Pulse Ox O2 Del Method 97.7 F L 65 18 150/74 H 99 Room Air 08/12/24 07:57 08/12/24 07:57 08/12/24 07:57 08/12/24 07:57 08/12/24 07:57 08/12/24 07:57 Oxygen Delivery Method Room Air Weight: 136.6 kg Body Mass Index (BMI) 38.6 Intake & Output: Intake and Output for Last 24 Hours 08/10/24 08/11/24 08/12/24 23:59 23:59 23:59 Intake Total 8027.5 / 8027.5 3500 / 3500 Output Total 300 / 300 Balance 8027.5 / 7777.5 3200 / 3200 Lab / Micro Data 08/12/24 05:28 08/12/24 05:24 Labs: Laboratory Results - last 24 hr 08/11/24 04:27: ESR 2, Lactate Dehydrogenase 184, C-React Prot Ext Range 10.40 H, DIANA-1 Antibody TNP, SS-A/Ro IgG Antibody TNP, SS-B/La IgG Antibody TNP, Sm (Roe) Antibody TNP, LABOR OPERATOR Antibody TNP, Antichromatin Antibodies TNP, Centromere B Antibody TNP 08/11/24 11:04: POC Glucose 87 08/11/24 16:36: POC Glucose 170 H 08/11/24 21:49: POC Glucose 210 H 08/12/24 05:24: Sodium 137, Potassium 3.1 L, Chloride 109 H, Carbon Dioxide 16.8 L, Anion Gap 12, BUN 13, Creatinine 0.78, Estim Creat Clear Calc 151.79, Est GFR (MDRD) Non-Af 103, BUN/Creatinine Ratio 17.2, Glucose 189 H, Calcium 7.9, Phosphorus 3.0, Magnesium 1.6 08/12/24 05:28: WBC 11.1 H, RBC 4.42 L, Hgb 12.4 L, Hct 36.7 L, MCV 83.0, MCH 28.1, MCHC 33.8, RDW Std Deviation 45.1 H, RDW Coeff of Jett 15.0 H, Plt Count 162, MPV 11.0, Neut % (Auto) Not Reportable, Absolute Neuts (auto) 6.5, Absolute Lymphs (auto) 2.11, Total Counted 100, Neutrophils % (Manual) 54, Band Neutrophils % 4, Lymphocytes % (Manual) 19, Monocytes % (Manual) 8, Eosinophils % (Manual) 13 H, Basophils % (Manual) 1, Metamyelocytes % 1, Diff Path Review May , Platelet Estimate ADEQUATE, RBC Morphology NORM C+C, PT 21.1 H, INR 1.8 08/12/24 06:20: POC Glucose 199 H Micro: Microbiology 08/06/24 03:00 Stool Enteric Bacteriology - Final 08/06/24 03:00 Stool Stool Lactoferrin - Final 08/06/24 03:00 Stool Clostridioides difficile (PCR) - Final 08/05/24 21:24 Stool Stool Occult Blood (EDUARD) - Final Occult Blood Positive Radiography Diagnostic Testing: Radiology Impression Renal Ultrasound 08/11/24 08:32 IMPRESSION: Horseshoe kidney. No evidence of hydronephrosis. Partial distention of the urinary bladder with mild bladder wall thickening. Reading Location: [facility] Physical Exam Narrative GENERAL: cooperative HEENT: Atraumatic; normocephalic EYES; Anicteric, Normal Conjunctiva NECK; supple, normal thyroid, RESPIRATORY: Diminished to auscultation CARDIOVASCULAR: Regular S1 S2, GI: soft, normoactive bowel sounds, : No Renal angle tenderness; EXTREMITIES: No edema, no clubbing, MUSCULOSKELETAL: no muscle wasting NEURO: Awake; no lateralizing signs. SKIN: No Rash PSYCH; Flat affect Assessment & Plan Assessment/Plan (1) Bloody diarrhea: (2) Nausea and vomiting: QUALIFIERS: Vomiting type: bilious vomiting Qualified Code(s): R11.14 - Bilious vomiting (3) Supratherapeutic INR: (4) Paroxysmal atrial fibrillation: (5) Obesity (BMI 30-39.9): (6) MARIELLA (obstructive sleep apnea): PLAN: Plan Patient is a 58-year-old Male with history of paroxysmal A-fib flutter on systemic anticoagulation with warfarin who presented with nausea vomiting as well as diarrhea of 3 days duration. She did develop bright red blood per rectum. Admitted to monitored bed with consultation placed to GI 1. Bloody diarrhea ? Patient admitted to monitored bed patient is on systemic anticoagulation with Coumadin held. Patient was apparently scheduled to undergo outpatient colonoscopy on 08/18/2024, given her presentation consult was placed to Dr. Brito for endoscopic evaluation was in the hospital. Patient was found to have leukocytosis with bandemia subsequently started on antibiotic therapy with ciprofloxacin and Flagyl. Dr. Brito also ordered DAISY with reflex panel to rule out inflammatory bowel disease -Colonoscopy performed on 08/11/[address] Brito did show Impressions : - Diverticulosis in the entire examined colon. - Two 1 to 2 mm polyps in the transverse colon and in the ascending colon, removed with a hot snare. Resected and retrieved. - Congested mucosa in the entire examined colon. Biopsied. - Mild inflammation was found in the ileum secondary to ileitis. Biopsied. 08/12/2024 Patient seen bleeding has subsided. INR down to 1.8. Plan is for patient to be assessed for possible discharge 2.Paroxysmal atrial fibrillation/flutter -Previous failed DCCV in 2021; cryoablation in 2021 patient is on rate controlling agent with diltiazem as well as metoprolol continued. Also on systemic anticoagulation with Coumadin she however presented with supratherapeutic INR and given her bleeding per rectum Coumadin was held 3. Coumadin induced coagulopathy ? Patient did receive vitamin K subsequent monitoring with daily INR ordered ? 08/12/2024; INR down to 1.8 4. Hypokalemia -Corrected per protocol ? 08/12/2024 additional replacement given. 5. Acute kidney injury ? Secondary to severe dehydration from diarrhea and decreased oral intake patient resuscitated with IV fluid with subsequent monitoring with daily BMPs ordered ? 08/12/2024; FRANSISCA resolved 6. Metabolic acidosis ? Secondary to FRANSISCA do expect improvement with treatment of underlying etiology 7. Diabetes mellitus type II -patient's oral hypoglycemics held. Placed on long acting insulin, Accu-Cheks a.c. and at bedtime and covered with sliding scale insulin 8. Essential 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 ? Patient blood pressure remained stable patient is on Lasix and lisinopril held given her presentation 9. Class II obesity with BMI of 38.5 ? Complicating care weight loss advised 10. Nonischemic cardiomyopathy ? Thought to be tachycardia mediated monitored with serial echoes as outpatient 11. Chronic congestive heart failure with preserved ejection fraction ? Patient is on diuretic therapy held given her presentation?FRANSISCA 12. Tobacco dependence ? Counseled on cessation, offered nicotine patch for tobacco cravings 13.Depression -Continued home Wellbutrin 14. DVT prophylaxis -INR remains supratherapeutic Time spent in the patient's overall evaluation,decision-making process, review of diagnostic data, adjustment of management, discussion with other providers, nursing nursing and ancillary staff involved in patient's care documentation, 38 Minutes
[2024-08-12] MEDS: buPROPion (SR) 150 MG Tablet.SA PO (09:02)
[2024-08-12] MEDS: Budesonide 3 MG CAPSULE.EC 9 MG PO (09:02)
[2024-08-12] MEDS: Ciprofloxacin 200 MG/100 ML BAG 100 MG IV (09:04)
[2024-08-12] MEDS: Insulin Glargine-YFGN 100 UNIT/ML Pen 35 UNIT SC (09:14)
[2024-08-12 09:35] LABS: Bedside Glucose 147 mg/dL (74-106)
[2024-08-12] MEDS: Potassium Chloride Oral Tablet 20 MEQ 40 MEQ PO (10:58)
--- NOTE | 2024-08-12 11:28 | DS.PCM_ITS ---
Providers Date of Admission: 08/06/24 Date of Discharge: 08/12/24 Primary Care Physician: Dr. Margot Mai MD Consultations 08/08/24 11:21 Consult: Gastroenterology Routine Consulting Provider: [facility] Reason for Consult: Intractable diarrhea EMERGENT Consult: No MD Notified: Yes Date Notified: 08/08/24 Time Notified: 11:21 Method of Notification: Text Reason For Visit: BLOODY DIARRHEA WITH N/V, FOOD POISONING AND Diagnosis Discharge Diagnosis (1) Bloody diarrhea: Status: Acute Code(s): R19.7 - Diarrhea, unspecified (2) Nausea and vomiting: Status: Acute Code(s): R11.2 - Nausea with vomiting, unspecified Qualifiers: Vomiting type: bilious vomiting Qualified Code(s): R11.14 - Bilious vomiting (3) Supratherapeutic INR: Status: Acute Code(s): R79.1 - Abnormal coagulation profile (4) Paroxysmal atrial fibrillation: Status: Acute Code(s): I48.0 - Paroxysmal atrial fibrillation (5) Obesity (BMI 30-39.9): Status: Acute Code(s): E66.9 - Obesity, unspecified (6) MARIELLA (obstructive sleep apnea): Status: Chronic Code(s): G47.33 - Obstructive sleep apnea (adult) (pediatric) Plan Patient is a 58-year-old Male with history of paroxysmal A-fib flutter on systemic anticoagulation with warfarin who presented with nausea vomiting as well as diarrhea of 3 days duration. She did develop bright red blood per rectum. Admitted to monitored bed with consultation placed to GI 1. Bloody diarrhea ? Patient admitted to monitored bed patient is on systemic anticoagulation with Coumadin held. Patient was apparently scheduled to undergo outpatient colonoscopy on 08/18/2024, given her presentation consult was placed to Dr. Brito for endoscopic evaluation was in the hospital. Patient was found to have leukocytosis with bandemia subsequently started on antibiotic therapy with ciprofloxacin and Flagyl. Dr. Brito also ordered DAISY with reflex panel to rule out inflammatory bowel disease -Colonoscopy performed on 08/11/[address] Brito did show Impressions : - Diverticulosis in the entire examined colon. - Two 1 to 2 mm polyps in the transverse colon and in the ascending colon, removed with a hot snare. Resected and retrieved. - Congested mucosa in the entire examined colon. Biopsied. - Mild inflammation was found in the ileum secondary to ileitis. Biopsied. 08/12/2024 Patient seen bleeding has subsided. Patient was discharged on ciprofloxacin, Flagyl, budesonide. With plans for patient to follow-up with Dr. Brito in 2 weeks time 2.Paroxysmal atrial fibrillation/flutter -Previous failed DCCV in 2021; cryoablation in 2021 patient is on rate controlling agent with diltiazem as well as metoprolol continued. Also on systemic anticoagulation with Coumadin she however presented with supratherapeutic INR and given her bleeding per rectum Coumadin was held 3. Coumadin induced coagulopathy ? Patient did receive vitamin K subsequent monitoring with daily INR ordered ? 08/12/2024; INR down to 1.8. Patient instructed to resume Coumadin on 08/15/2024 and to follow-up with primary care physician to have repeat INR to be drawn on 08/18/2024 4. Hypokalemia -Corrected per protocol ? 08/12/2024 additional replacement given. 5. Acute kidney injury ? Secondary to severe dehydration from diarrhea and decreased oral intake patient resuscitated with IV fluid with subsequent monitoring with daily BMPs ordered ? 08/12/2024; FRANSISCA resolved 6. Metabolic acidosis ? Secondary to FRANSISCA do expect improvement with treatment of underlying etiology 7. Diabetes mellitus type II -patient's oral hypoglycemics held. Placed on long acting insulin, Accu-Cheks a.c. and at bedtime and covered with sliding scale insulin 8. Essential 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 ? Patient blood pressure remained stable patient is on Lasix and lisinopril held given her presentation 9. Class II obesity with BMI of 38.5 ? Complicating care weight loss advised 10. Nonischemic cardiomyopathy ? Thought to be tachycardia mediated monitored with serial echoes as outpatient 11. Chronic congestive heart failure with preserved ejection fraction ? Patient is on diuretic therapy held given her presentation?FRANSISCA 12. Tobacco dependence ? Counseled on cessation, offered nicotine patch for tobacco cravings 13.Depression -Continued home Wellbutrin 14. DVT prophylaxis -INR remains supratherapeutic Time spent in the patient's overall evaluation,decision-making process, review of diagnostic data, adjustment of management, discussion with other providers, nursing nursing and ancillary staff involved in patient's care documentation, 38 Minutes Medications at Discharge Home Medications bupropion HCl 150 mg tablet,12 hr sustained-release 150 mg PO BID antidepressant 08/14/21 metformin 1,000 mg tablet 1,000 mg PO BID dm 08/14/21 lisinopril 2.5 mg tablet 2.5 mg PO DAILY 05/22/22 insulin glargine 100 unit/mL (3 mL) subcutaneous pen (Lantus Solostar U-100 Insulin) 30 unit subcut BID 05/17/23 diltiazem HCl 120 mg capsule,extended release 24 hr 120 mg PO DAILY #90 caps 09/24/23 spironolactone 25 mg tablet See Rx Instructions .Route .COMPLEX #30 tabs 09/24/23 potassium chloride 10 mEq tablet,extended release 10 meq PO DAILY #90 tabs 07/18/24 furosemide 40 mg tablet 80 mg PO DAILY 08/05/24 metoprolol tartrate 75 mg tablet 75 mg PO Q12H 08/05/24 warfarin 2 mg tablet 2 mg PO WETH 08/05/24 Held on 08/12/24. Instructions: Resume on 08/15/24. warfarin 5 mg tablet 10 mg PO DAILY 08/05/24 Held on 08/12/24. Instructions: Resume on 08/15/24. budesonide 3 mg capsule,delayed,extended release 9 mg (3 x 3 mg) PO DAILY 60 days #180 ea 08/12/24 ciprofloxacin HCl 500 mg tablet (Cipro) 500 mg PO BID #10 tabs 08/12/24 colestipol 1 gram tablet 2 g (2 x 1 gram) PO 0600,1999 30 days #120 tabs 08/12/24 loperamide 2 mg capsule 2 mg PO TID PRN loose stool #30 caps 08/12/24 metronidazole 500 mg tablet 500 mg PO Q8H 5 days #15 tabs 08/12/24 potassium chloride 20 mEq tablet,extended release(part/cryst) 20 meq PO BIDCM 5 days #10 tabs 08/12/24 psyllium husk (aspartame) 3 gram oral powder packet (Daily Fiber (psyllium- aspartame)) 1 packet PO BID #54 ea 08/12/24 Physical Exam Narrative GENERAL: cooperative HEENT: Atraumatic; normocephalic EYES; Anicteric, Normal Conjunctiva NECK; supple, normal thyroid, RESPIRATORY: Diminished to auscultation CARDIOVASCULAR: Regular S1 S2, GI: soft, normoactive bowel sounds, : No Renal angle tenderness; EXTREMITIES: No edema, no clubbing, MUSCULOSKELETAL: no muscle wasting NEURO: Awake; no lateralizing signs. SKIN: No Rash PSYCH; Flat affect Weight / BMI Weight Weight: 136.6 kg Body Mass Index (BMI) 38.6 ABG / Lab / Microbiology Data 08/12/24 05:28 08/12/24 05:24 Laboratory: Laboratory Results - last 24 hr 08/11/24 11:04: POC Glucose 87 08/11/24 16:36: POC Glucose 170 H 08/11/24 21:49: POC Glucose 210 H 08/12/24 05:24: Sodium 137, Potassium 3.1 L, Chloride 109 H, Carbon Dioxide 16.8 L, Anion Gap 12, BUN 13, Creatinine 0.78, Estim Creat Clear Calc 151.79, Est GFR (MDRD) Non-Af 103, BUN/Creatinine Ratio 17.2, Glucose 189 H, Calcium 7.9, Phosphorus 3.0, Magnesium 1.6 08/12/24 05:28: WBC 11.1 H, RBC 4.42 L, Hgb 12.4 L, Hct 36.7 L, MCV 83.0, MCH 28.1, MCHC 33.8, RDW Std Deviation 45.1 H, RDW Coeff of Jett 15.0 H, Plt Count 162, MPV 11.0, Neut % (Auto) Not Reportable, Absolute Neuts (auto) 6.5, Absolute Lymphs (auto) 2.11, Total Counted 100, Neutrophils % (Manual) 54, Band Neutrophils % 4, Lymphocytes % (Manual) 19, Monocytes % (Manual) 8, Eosinophils % (Manual) 13 H, Basophils % (Manual) 1, Metamyelocytes % 1, Diff Path Review May , Platelet Estimate ADEQUATE, RBC Morphology NORM C+C, PT 21.1 H, INR 1.8 08/12/24 06:20: POC Glucose 199 H 08/12/24 09:13: POC Glucose 147 H Microbiology: Microbiology 08/10/24 09:15 Blood Culture (Wb) - Anticubital Left Blood Culture - Preliminary No growth in 48 hours. 08/10/24 09:10 Blood Culture (Wb) - Left Wrist Blood Culture - Preliminary No growth in 48 hours. 08/06/24 03:00 Stool Enteric Bacteriology - Final 08/06/24 03:00 Stool Stool Lactoferrin - Final 08/06/24 03:00 Stool Clostridioides difficile (PCR) - Final 08/05/24 21:24 Stool Stool Occult Blood (EDUARD) - Final Occult Blood Positive D/C Instructions Discharge Diet: 1800 Calorie Control Diet Discharge Activity: Return to Normal Activity Call your doctor if you observe: Fever of 101 or Higher, Shortness of breath, Fainting spells and Chest pain DC O2, CPAP, BIPAP Needs Home O2 Discharge instructions: No Meaningful Use Info Meaningful Use Meaningful Use Diagnoses (Choose all that apply): None applicable Ischemic Stroke Statin Dosing Therapy Reference: STATIN DOSE THERAPY REFERENCE: * Patients > 75 years receive moderate or high dose statin therapy. * Patients 75 years or YOUNGER should receive HIGH intensity statin dose unless contraindicated. You will be required to document reason for non-treatment if statin daily dose does not meet guidelines. HIGH DOSE STATIN THERAPY DAILY Atorvastatin > than or = to 40 mg Rosuvastatin > than or = to 20 mg Amlodipine + Atorvastatin > than or = to 2.5/40 mg Ezetimibe + Simvastatin 10/80 mg Simvastatin 80mg Discharge Plan Admission Admit Date/Time: 08/06/24 01:35 Attending Provider: Yfn Mccarthy Primary Care Provider: Margot Mai Consulting Providers: Yfn Dietz; Annetta Mar Discharge Orders/Prescriptions Prescriptions: New loperamide 2 mg Capsule 2 mg PO TID PRN (Reason: loose stool) Qty: 30 0RF potassium chloride 20 mEq Tablet,Er Particles/Crystals 20 meq PO BIDCM 5 Days Qty: 10 0RF budesonide 3 mg Capsule,Delayed,Extend.Release 9 mg PO DAILY 60 Days Qty: 180 0RF colestipol 1 gram Tablet 2 g PO 0600,1999 30 Days Qty: 120 0RF Daily Fiber (psyllium-aspart) 3 gram Powder In Packet 1 packet PO BID Qty: 54 0RF metronidazole 500 mg tablet 500 mg PO Q8H 5 Days Qty: 15 0RF ciprofloxacin HCl [Cipro] 500 mg tablet 500 mg PO BID Qty: 10 0RF Continued bupropion HCl 150 mg tablet sustained-release 12 hr 150 mg PO BID Patient Comments: TAKE 1 TABLET BY MOUTH TWICE DAILY metformin 1,000 mg tablet 1,000 mg PO BID Patient Comments: TAKE 1 TABLET BY MOUTH TWICE DAILY lisinopril 2.5 mg tablet 2.5 mg PO DAILY Patient Comments: TAKE 1 TABLET BY MOUTH ONCE DAILY insulin glargine [Lantus Solostar U-100 Insulin] 100 unit/mL (3 mL) insulin pen 30 unit SUBCUT BID Patient Comments: INJECT 30 UNITS in AM, and 30 UNITS in PM. metoprolol tartrate 75 mg tablet 75 mg PO Q12H furosemide 40 mg tablet 80 mg PO DAILY spironolactone 25 mg tablet See Rx Instructions .ROUTE .COMPLEX Qty: 30 12RF Dose Instruction: Take 1 tablet by mouth once daily Rx Instructions: Take 1 tablet by mouth once daily diltiazem HCl 120 mg capsule,extended release 24hr 120 mg PO DAILY Qty: 90 3RF potassium chloride 10 mEq tablet extended release 10 meq PO DAILY Qty: 90 3RF Held warfarin 2 mg tablet 2 mg PO WETH Hold Instructions: Resume on 08/15/24. Protocol: Dose Management Condition: Sunday Dose/Route: 10 mg Instruction: 2 x 5 mg tablets Condition: Sunday Dose/Route: 10 mg Instruction: 2 x 5 mg tablets Condition: Sunday Dose/Route: 10 mg Instruction: 2 x 5 mg tablets Condition: Sunday Dose/Route: 12 mg Instruction: 1 x 2 mg tablet, 2 x 5 mg tablets Condition: Dose/Route: 12 mg Instruction: 1 x 2 mg tablet, 2 x 5 mg tablets Condition: Sunday Dose/Route: 10 mg Instruction: 2 x 5 mg tablets Condition: Sunday Dose/Route: 10 mg Instruction: 2 x 5 mg tablets Protocol Text: Adjustment Start Date: 06/07/23 INR Value: 3.2 INR Date: 04/28/23 Recheck Date: 06/08/23 Rx Instructions: 2 mg orally daily with a two 5 mg tablet to =12 mg on ; or as directed warfarin 5 mg tablet 10 mg PO DAILY Hold Instructions: Resume on 08/15/24. Protocol: Dose Management Condition: Sunday Dose/Route: 10 mg Instruction: 2 x 5 mg tablets Condition: Sunday Dose/Route: 10 mg Instruction: 2 x 5 mg tablets Condition: Sunday Dose/Route: 10 mg Instruction: 2 x 5 mg tablets Condition: Sunday Dose/Route: 12 mg Instruction: 1 x 2 mg tablet, 2 x 5 mg tablets Condition: Dose/Route: 12 mg Instruction: 1 x 2 mg tablet, 2 x 5 mg tablets Condition: Sunday Dose/Route: 10 mg Instruction: 2 x 5 mg tablets Condition: Sunday Dose/Route: 10 mg Instruction: 2 x 5 mg tablets Protocol Text: Adjustment Start Date: 06/07/23 INR Value: 3.2 INR Date: 04/28/23 Recheck Date: 06/08/23 Rx Instructions: Two 5 mg orally daily (10mg daily and 12mg on Sun/); as directed Referrals / Follow Up: Margot Mai MD [Primary Care Provider] - In 1 Week (For repeat INR on 08/18/2024) FriendBipin DO [Med Staff - Active Staff] - Within 1 Week Disposition Disposition (needs filled in before D/C Order can be placed): Home, Self Care Charges/Coding Visit Charges Inpatient E&M: 02927 Disch Hosp >30min
[2024-08-12 11:34] VITALS: PULSE 65
[2024-08-12 11:45] VITALS: BP 122/71; PULSE 66; RESP 18; TEMP 36.4; O2SAT 100
--- NOTE | 2024-08-12 11:52 | CASEMGMT ---
Patient has order for discharge. RN CM in to discuss needs at discharge. Patient denies needs or help at discharge. Patient had no further questions or concerns.
[2024-08-12 11:55] VITALS: BP 122/71; PULSE 66
[2024-08-12] MEDS: Metoprolol Tartrate 25 MG Tablet 75 MG PO (11:55)
--- NOTE | 2024-08-12 12:09 | CASEMGMT ---
Addendum entered by Temi Wade 08/12/24 13:12: JANETTE QUINTANILLA applied for prior authorization, prior auth denied stating the insurance policy does not cover this medication. JANETTE QUINTANILLA informed cost for medication is $120. Patient agreeable to pay for medication and will discuss changing prescription at follow up appointment with Dr. Brito. Hospitalist notified. Original Note: JANETTE QUINTANILLA notified pt medication needs prior authorization. JANETTE QUINTANILLA called insurance, they states RN DWIGHT will need to fill out form from their website and fax over for review. Review will take 24-72 hours. JANETTE QUINTANILLA asked for it to be expedited. Insurance states I can make a note on the form requesting it be expedited but still will take 24 hours. JANETTE QUINTANILLA sent hospitalist to notify about prior auth.
[2024-08-12 12:18] LABS: Bedside Glucose 155 mg/dL (74-106)
[2024-08-12 13:08] LABS: Anti-Centromere B Ab <0.2 AI (0.0-0.9); Anti-Chromatin <0.2 AI (0.0-0.9); Anti-Jo <0.2 AI (0.0-0.9); Anti-Scleroderma-70 AB <0.2 AI (0.0-0.9); Anti-dsDNA Ab <1 IU/mL (0-9); RNP Ab <0.2 AI (0.0-0.9); SJOGREN'S Anti-SS-A test < 0.2 AI (0.0-0.9); SJOGREN'S Anti-SS-B test < 0.2 AI (0.0-0.9); Smith Ab <0.2 AI (0.0-0.9)
[2024-08-13 15:08] LABS: ACCA 33 units (0-90); ALCA 0 units (0-60); AMCA 37 units (0-100); gASCA 17 units (0-50)
== END 2024-08-12 13:21 | disposition home or self-care (01) | DRG 378 ==
LOC: ED 21:33 → PCU 08-06 02:00
PROVIDERS: Internal Medicine; Internal Medicine Gastroenterology; Admitting Provider Internal Medicine; Emergency Provider Surgery; PCP Family Medicine; Visit Provider Internal Medicine
PROC: 0DJD8ZZ Inspection of Lower Intestinal Tract, Via Natural or Artificial Opening Endoscopic (ICD-10-PCS; CPT 45378; principal; 2024-08-11 12:10)
DX: K62.5 Hemorrhage of anus and rectum (principal); D68.32 Hemorrhagic disorder due to extrinsic circulating anticoagulants; E87.20 Acidosis, unspecified; I42.8 Other cardiomyopathies; N17.9 Acute kidney failure, unspecified; I50.32 Chronic diastolic (congestive) heart failure; E11.65 Type 2 diabetes mellitus with hyperglycemia; A05.9 Bacterial foodborne intoxication, unspecified; I48.0 Paroxysmal atrial fibrillation; E86.0 Dehydration; J44.9 Chronic obstructive pulmonary disease, unspecified; I11.0 Hypertensive heart disease with heart failure; F32.A Depression, unspecified; G25.81 Restless legs syndrome; Z68.38 Body mass index [BMI] 38.0-38.9, adult; K52.9 Noninfective gastroenteritis and colitis, unspecified; Z79.4 Long term (current) use of insulin; G47.33 Obstructive sleep apnea (adult) (pediatric); E87.6 Hypokalemia; D72.825 Bandemia; K29.00 Acute gastritis without bleeding; K20.90 Esophagitis, unspecified without bleeding; D12.3 Benign neoplasm of transverse colon; K57.30 Diverticulosis of large intestine without perforation or abscess without bleeding; R11.2 Nausea with vomiting, unspecified; Z86.0100 Personal history of colon polyps, unspecified; Z79.84 Long term (current) use of oral hypoglycemic drugs; Z87.891 Personal history of nicotine dependence; E66.812 Obesity, class 2; Z79.899 Other long term (current) drug therapy
CPT/HCPCS: 36415; 74177; 76770; 80048; 80053; 81001; 82274; 82570; 82784; 82785; 82787; 82962; 83036; 83516; 83605; 83615; 83630; 83690; 83735; 84100; 84165; 84300; 84443; 85018; 85025; 85610; 85652; 86036; 86037; 86140; 86225; 86235; 86255; 86334; 86671; 86850; 86900; 86901; 87040; 87177; 87209; 87493; 87506; 88305; 88342; 94668; 99285; Q9967; A4216; J0744; J2405

== ENCOUNTER → 2024-08-25 | Outpatient (CLI) | payer BC, SELFPAY ==
[2024-08-25 17:46] LABS: Absolute Lymphocyte Count 1.31 X10^3/uL (0.83-4.51); Absolute Neutrophil Count 4.4 X10^3/uL (2.0-7.7); Basophil# 0.06 X10^3/uL; Basophil% 0.9 % (0-1); Eosinophil# 0.39 X10^3/uL; Eosinophils% 5.7 % (0-5); Hematocrit 36.6 % (40-54); Hemoglobin 11.8 g/dL (13.0-16.5); Lymphocyte # 1.31 X10^3/ul (0.83-4.51); Lymphocyte % 19.1 % (19-41); Mean Corp Hgb Conc 32.2 g/dL (32-36); Mean Corpuscular Hgb 27.7 pg (27.0-32.0); Mean Corpuscular Volume 85.9 fL (80-94); Monocyte# 0.59 X10^3/uL; Monocyte% 8.6 % (0-10); NRBC Flagged by Analyzer 0 % (0-5); Neutrophil # 4.36 X10^3/uL (2.7-7.7); Neutrophil % 63.7 % (47-70); Platelet Count 211 K/mm3 (150-450); RBC Distribution Width CV 14.9 % (11.6-14.6); RBC Distribution Width SD 46.4 fl (35.1-43.9); Red Blood Count 4.26 M/mm3 (4.6-6.2); White Blood Count 6.9 K/mm3 (4.4-11.0)
[2024-08-25 18:26] LABS: Microalbumin,Random Urine < 12.0 mg/L (NO RANGE EST.); Microalbumin:Creatinine Ratio UNABLE TO CALCULATE mg/g CRE
[2024-08-25 18:31] LABS: Cholesterol 159 mg/dL (<=200); High Density Lipoprotein 67 mg/dL; Low Density Lipoprotein Calc. 71 mg/dL; Triglycerides 105 mg/dL; Very Low Density Lipoprotein 21 mg/dL (5-40); cholesterol:hdl ratio screen 2.38
[2024-08-25 18:36] LABS: Anion Gap 13 (5-15); BUN 21 mg/dL (4-19); BUN/Creat Ratio 26.2 RATIO (10-20); Calcium,Total 8.9 mg/dL (7.6-11.0); Chloride 101 mmol/L (98-108); Creatinine, Serum 0.79 mg/dL (0.70-1.20); EST Glomerular Filtration Rate 102 (>60); Glucose 163 mg/dL (70-99); Potassium 3.6 mmol/L (3.3-5.1); Sodium Level 138 mmol/L (133-145)
== END | disposition home or self-care (01) ==
LOC: LAB 15:51
PROVIDERS: Internal Medicine Cardiovascular Disease; Nurse Practitioner Acute Care; PCP Family Medicine; Referring Provider Family Medicine; Visit Provider Family Medicine
DX: E11.65 Type 2 diabetes mellitus with hyperglycemia (principal); I48.91 Unspecified atrial fibrillation
CPT/HCPCS: 36415; 80048; 80061; 82043; 82570; 85025

== ENCOUNTER → 2024-10-14 | Outpatient (CLI) | payer BC, SELFPAY ==
[2024-10-14 16:52] LABS: Hematocrit 39.6 % (40-54); Mean Corp Hgb Conc 32.8 g/dL (32-36); Mean Corpuscular Hgb 28.6 pg (27.0-32.0); Mean Platelet Vol. 10.8 fl (6.2-12.0); POSITIVE COUNT YES; POSITIVE MORPHOLOGY YES; Platelet Count 228 K/mm3 (150-450); RBC Distribution Width CV 14.4 % (11.6-14.6); RBC Distribution Width SD 45.5 fl (35.1-43.9); Red Blood Count 4.55 M/mm3 (4.6-6.2); White Blood Count 9.2 K/mm3 (4.4-11.0)
[2024-10-14 16:58] LABS: Differential Indicated MANUAL DIFF
[2024-10-14 19:53] LABS: Basophil 1 % (0-1); Eosinophil 1 % (0-5); Lymphocyte 23 % (19-41); Metamyelocyte 1 % (0-1); Monocyte 8 % (0-10); Neutrophil-Band 1 % (0-5); Neutrophil-Segmented 65 % (47-70); Total Cells Counted 100 (MANUAL DIFF)
[2024-10-14 19:57] LABS: Absolute Neutrophil Count 6.1 X10^3/uL (2.0-7.7)
[2024-10-14 19:58] LABS: Absolute Lymphocyte Count 2.11 X10^3/uL (0.83-4.51)
[2024-10-14 19:59] LABS: Pathologist Review May foll; Platelet Estimate ADEQUATE (ADEQ)
== END | disposition home or self-care (01) ==
LOC: LAB 15:53
PROVIDERS: PCP Family Medicine; Referring Provider Nurse Practitioner Acute Care; Visit Provider Nurse Practitioner Acute Care
DX: D64.9 Anemia, unspecified (principal)
CPT/HCPCS: 36415; 85025

== ENCOUNTER 2024-12-10 06:00 | Day surgery (SDC) | payer BC, SELFPAY ==
--- NOTE | 2024-12-05 13:55 | PAT.ANESEVAL ---
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 When Was Last Pacemaker Check QUESTION #4 FULL TEXT: You/Your Family Experience fever (hyperthermia) with Anesthesia Last Oral Intake Last Oral intake: Last Oral Intake NPO since Meds taken in AM with sips of water? 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 Female No 12/05/24 13:23 HX of Motion Sickness No 12/05/24 13:23 HX of N/V After Surgery No 12/05/24 13:23 Non-Smoker Yes 12/05/24 13:23 Duration of Surgery greater No 12/05/24 13:23 than 60 minutes Number of Risk Factors 1 12/05/24 13:23 PONV Score Low Risk 12/05/24 13:23 Height & Weight Height & Weight: Anesthesia: Height & Weight Height 6 ft 2 in 08/14/24 09:08 Respiratory Assessment Respiratory Assessment - surface mount technology operator: Respiratory Tract Infection Hx - surface mount technology operator Hx Respiratory Tract Infection No 12/05/24 13:23 STOP Sleep Apnea STOP Sleep Apnea - surface mount technology operator: STOP Sleep Apnea - surface mount technology operator Hx Hypertension Yes: CONTROLLED WITH MEDS 12/05/24 13:23 Hx Sleep Apnea Yes 12/05/24 13:23 CPAP Yes 12/05/24 13:23 BIPAP No 12/05/24 13:23 Do you snore loudly (louder than talking or can be heard Do you often feel tired/ fatigued/ sleepy during daytime? Has anyone observed you stop breathing during sleep? STOP Results Positive 12/05/24 13:23 QUESTION #5 FULL TEXT : Do you snore loudly (louder than talking or can be heard through closed doors)? 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 Specify any problems Hx of Preganancy in last 3 N/A 12/05/24 13:23 Months Nurse Filling Out Transfusion [email or web address] 12/05/24 13:23 & Questions: Date: 12/05/24 12/05/24 13:23 Time: 13:26 12/05/24 13:23 Patient unable to answer at this time (ie. 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: /Reproductive Hx- surface mount technology operator Hx Now Gestational Age (in weeks): EDC: Hx Hx Para Hx Section SAB PFSH Medical History (Updated 12/05/24 @ 13:36 by Yefri Ramirez) Wears glasses MRSA infection Insulin dependent diabetes mellitus Restless legs Former smoker CPAP (continuous positive airway pressure) dependence Sleep apnea History of echocardiogram Cardiology follow-up encounter History of atrial fibrillation Hx of colonic polyps Non-ischemic cardiomyopathy HFrEF (heart failure with reduced ejection fraction) Persistent atrial fibrillation FPC current use of anticoagulant Essential 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 Atrial fibrillation with rapid ventricular response MARIELLA (obstructive sleep apnea) Diabetes COPD (chronic obstructive pulmonary disease) Home Medications ?Medication ?Instructions ?Recorded ?Last Taken ?Type bupropion HCl 150 mg tablet,12 hr 150 mg PO BID antidepressant 08/14/21 05/23/22 History sustained-release metformin 1,000 mg tablet 1,000 mg PO BID dm 08/14/21 05/23/22 History lisinopril 2.5 mg tablet 2.5 mg PO DAILY blood pressure 05/22/22 05/24/22 History insulin glargine 100 unit/mL (3 30 unit subcut BID diabetes 05/17/23 Unknown History mL) subcutaneous pen (Lantus Solostar U-100 Insulin) potassium chloride 10 mEq 10 meq PO DAILY supplement #90 tabs 07/18/24 Unknown Rx tablet,extended release metoprolol tartrate 75 mg tablet 75 mg PO Q12H blood pressure 08/05/24 Unknown History loperamide 2 mg capsule 2 mg PO TID PRN loose stool #30 08/12/24 Unknown Rx caps furosemide 40 mg tablet 80 mg (2 x 40 mg) PO DAILY 09/15/24 Unknown Rx diuretic #180 tabs apixaban 5 mg tablet 5 mg PO BID #180 tabs 10/01/24 Unknown Rx budesonide 9 mg capsule,extended 9 mg PO DAILY #30 caps 10/13/24 Unknown Rx release colestipol 1 gram tablet 2 g (2 x 1 gram) PO BID 90 days 11/11/24 Unknown Rx #360 tabs diltiazem HCl 120 mg 120 mg PO DAILY heart rate #90 caps 11/25/24 Unknown Rx capsule,extended release 24 hr psyllium husk 3 gram oral powder 1 packet PO DAILY 12/05/24 Unknown History packet (Daily Fiber (psyllium-aspartame)) Allergy/AdvReac Type Severity Reaction Status Date / Time Penicillins Allergy PT UNSURE Verified 12/05/24 13:21 OF REACTION Family History Other COPD (chronic obstructive pulmonary disease) Colon cancer Heart disease Lung cancer Testicular cancer Surgical History (Updated 12/05/24 @ 13:36 by Yefri Ramirez) History of cardiac catheterization Status post cryoablation of arrhythmia (03/01/22) History of cardioversion (10/27/21) Bunion H/O hernia repair Social History Smoking Status: Former smoker alcohol intake: never substance use type: does not use caffeine: Yes Type: coffee Number of servings: 1 Audit: Pertinent Findings Pertinent Findings EKG Perinent findings: April 17, 2024. Atrial fibrillation. RSR (V1)?nondiagnostic Echo (EF%) pertinent findings: May 20, 2024. EF of 45%. RVSP is 43 mmHg. No aortic valve stenosis is noted. Heart catheterization pertinent findings: November 25, 2021. Normal coronary arteries. Patient is noted to be in atrial fibrillation. Left ventricular ejection fraction 20%. Consult pertinent findings: November 20, 2024. Darrick WHIPPLE. 1. Persistent atrial fibrillation?chronic-failed ablation/cardioversion 03/01/2022. Patient appears to be in normal sinus rhythm today. Heart rate well-controlled at this time. Continue Eliquis, diltiazem, metoprolol. Continue to monitor for A-fib. 2. Long-term use of anticoagulant?chronic-continue Eliquis. 3. Hypertension?ihejoob-ovjr-yhyikstqxa. 4. Nonischemic cardiomyopathy?chronic-EF is 45% in May 20, 2024 unchanged from January 2022. Stable at this time. Continue med management. 5. Obstructive sleep apnea?chronic-continue to wear CPAP and follow with pulmonology. Additional pertinent findings: Holter. June 06, 2022. Primary rhythm was atrial fibrillation and/or flutter. [place] was 100%. Recommendation Anesthesia Recommendation Anesthesia recommendation: OPTIMIZED for anesthesia
[2024-12-10] VITALS (8 sets, daily range): BP systolic 94–120; BP diastolic 62–72; PULSE 68–75; RESP 16–18; TEMP 36.1–37; O2SAT 94–99; BMI 39.1
--- OUTSIDE RECORDS SUMMARY | 2024-12-10 06:23 | XMS RPT_ITS | CCD ---
Author Organization [facility] Care Team Providers Care Manager Custom Name Role Phone Dr. Margot Mai Primary Care Provider [phone] Nella Grimm Emergency Provider Dr. Delonte Lees Admit Provider Dr. Delonte Lees Attending Provider Dr. Delonte Lees Other Provider Dr. Lazaro Marcus Attending Provider Dr. Patt Schwartz Attending Provider Dr. Patt Schwartz Other Provider Dr. Lazaro Marcus Other Provider Dr. Marc Hirsch Other Provider Dr. Marc Hirsch Attending Provider Dr. Margot Mai Referring Provider Lore HUBER, PA Monisha Luke Attending Provider Dr. Lazaro Marcus Referring Provider Dr. Anthony Torres Attending Provider Unavailable Primary Care Provider Unavailabl e Lazaro Marcus Unavailable Margot Mai Primary Care Provider Dr. Margot Mai Primary Care Provider [phone] Dr. Lazaro Marcus Other Provider Dr. Lazaro Marcus Attending Provider Dr. Margot Mai Referring Provider Lore HUBER, PA Monisha Luke Attending Provider Dr. Margot Mai Primary Care Provider [phone] Dr. Lazaro Marcus Attending Provider [phone] Lazaro Marcus Referring Provider [phone] Lazaro Marcus Other Provider Dr. Anthony Torres Attending Provider Dr. Margot Mai Referring Provider Lore HUBER PA Monisha Luke Attending Provider Lazaro Marcus Unavailable Magrot Mai Primary Care Provider Dr. Margot Mai Primary Care Provider [phone] Dr. Lazaro Marcus Attending Provider [phone] Lazaro Marcus Referring Provider [phone] Radha Ahn Attending Provider Unavailable Dr. Margot Mai Primary Care Provider [phone] Dr. Lazaro Marcus Attending Provider [phone] Radha Ahn Attending Provider Unavailable Dr. Margot Mai Referring Provider Dr. Yvonne Tamayo Attending Provider [phone] Dr. Margot Mai Primary Care Provider [phone] Dr. Yvonne Tamayo Referring Provider Dr. Yvonne Tamayo Other Provider Lazaro Marcus Unavailable Margot Mai MD Primary Care Provider Darrick ESCAMILLA, SOLE Morales Attending Provider Dr. Margot Mai Primary Care Provider [phone] Dr. Lazaro Marcus Attending Provider Dr. Yvonne Tamayo Referring Provider Dr. Margot Mai Primary Care Provider [phone] Dr. Margot Mai Referring Provider Dr. Yvonne Tamayo Attending Provider Dr. Lazaro Marcus Attending Provider [phone] Yvonne Tamayo Referring Provider Dr. Yvonne Tamayo Other Provider Darrick ESCAMILLA, FRANCINE-Ludwin Morales Attending Provider Akin Packer Attending Provider Unavailable Lore HUBER, PA Monisha Luke Attending Provider Dr. Margot Mai Primary Care Provider [phone] Dr. Yvonne Tamayo Attending Provider Dr. Margot Mai Referring Provider Dr. Margot Mai Primary Care Provider [phone] Dr. Margot Mai Referring Provider Dr. Margot Mai Primary Care Provider [phone] Dr. Margot Mai Referring Provider CECILE Bess Attending Provider Rashmi, Lazaro S Unavailable Rashmi, [place] S Unavailable Wei Marcus MDril S Unavailable Dr. Margot Mai Primary Care Provider [phone] Dr. Margot Mai Referring Provider Darrick ESCAMILLA, FRANCINE-Ludwin Morales Attending Provider CECILE Patino Attending Provider [phone] Margot Mai MD Primary Care Provider Jluis DOWD, Lamar Machado Unavailable Margot Mai MD Primary Care Provider Pau DOWD, Dr. Frost Primary Care Provider Pau DOWD, Dr. Frost Referring Provider [phone] Wes DOWD, Dr. Goins Attending Provider Wes DOWD, Dr. Goins Referring Provider Lenny HYDROELECTRIC MACHINERY MECHANIC HELPER-C, Lala Attending Provider Lenny HYDROELECTRIC MACHINERY MECHANIC HELPER-C, Lala Referring Provider Belkis DOWD, Dr. Russell Attending Provider [facility], Dr. Manzano Emergency Provider [facility], Dr. Manzano Emergency Provider Dietz DO, Dr. Coulter Admit Provider Unavail able Dietz DO, Dr. Coulter Other Provider Unavail able Dr. Yfn Mccarthy MD Attending Provider Unavaila ble Zaid LUNA, Dr. Littlejohn Other Provider Zaid LUNA, Dr. Littlejohn Attending Provider Alisha LUNA, Dr. Voss Attending Provider Shari DOWD, Dr. Coulter Other Provider Unavailable Pau DOWD, Dr. Frost Primary Care Provider Wes DOWD, Dr. Goins Attending Provider Dr. Margot Mai MD Referring Provider [phone] Zaid LUNA, Dr. Littlejohn Referring Provider Shari DOWD, Dr. Coulter Referring Provider Unavaila ble Sandeep HYDROELECTRIC MACHINERY MECHANIC HELPER-C, Nella Attending Provider Dr. Margot Mai MD Attending Provider [phone] Sandeep HYDROELECTRIC MACHINERY MECHANIC HELPER-C, Nella Other Provider Buster Harvey MD Unavailable Pau DOWD, Dr. Frost Primary Care Provider Dr. Buster Harvey MD Attending Provider [phone] Sandeep HYDROELECTRIC MACHINERY MECHANIC HELPER-CNella Referring Provider Dr. Margot Mai MD Primary Care Provider Carmen Monk Attending Provider [phone] BOLIVAR, LUCAS Attending Unavailable PILAR MCDANIELS Referring Unavailable MIEDEL, MARGOT E Primary Care Unavailable TESTRAKE, LUCAS Attending Unavailable TESTRAKE, LUCAS Referring Unavailable MIEDEL, MARGOT E Primary Care Unavailable TESTRAKE, LUCAS Attending Unavailable TESTRAKE, LUCAS Referring Unavailable MIEDEL, MARGOT E Primary Care Unavailable TESTRAKE, LUCAS Attending Unavailable MIEDEL, MARGOT E Primary Care Unavailable TESTRAKE, LUCAS Attending Unavailable TESTRAKE, LUCAS Referring Unavailable MIEDEL, MARGOT E Primary Care Unavailable PILAR MCDANIELS Referring Unavailable MIEDEL, MARGOT E Primary Care Unavailable TESTRAKE, LUCAS Attending Unavailable ENEDELIAPILAR FELIX Referring Unavailable MIEDEL, MARGOT E Primary Care Unavailable PILAR MCDANIELS Referring Unavailable MIEDEL, MARGOT E Primary Care Unavailable LAMAR NOGUEIRA Admitting Unavailable LAMAR NOGUEIRA Attending Unavailable SCHWEILAMAR EARLY Referring Unavailable MIEDEL, MARGOT E Primary Care Unavailable KENY ALEXANDER Referring Unavailable MIEDEL, MARGOT E Primary Care Unavailable KENY ALEXANDER Attending Unavailable MIEDEL, MARGOT E Primary Care Unavailable SCHWLAMAR AYALA Attending Unavailable LAZARO MARCUS Referring Unavailable MIEDEL, MARGOT E Primary Care Unavailable Yfn Dietz Admitting Unavailable Annetta Mar Attending Unavailable Miedel, Margot Primary Care Unavailable Yfn Dietz Consulting Unavailable Annetta Mar Consulting Unavailable Yfn Mccarthy Attending Unavailable Yfn Mccarthy Consulting Unavailable Miedel, Margot Attending Unavailable Miedel, Margot Primary Care Unavailable Miedel, Margot Referring Unavailable Nella Hopkins Consulting Unavailable Lala Galvez Attending Unavailable Lala Galvez Referring Unavailable Miedel, Margot Primary Care Unavailable Wes Buster Attending Unavailable Wes, Buster Referring Unavailable Miedel, Margot Primary Care Unavailable Miedel, Margot Primary Care Unavailable Yfn Dietz Admitting Unavailable Yfn Dietz Consulting Unavailable Yfn Mccarthy Attending Unavailable Annetta Mar Consulting Unavailable Robotham, Yvonne Attending Unavailable Miedel, Margot Primary Care Unavailable Friend, Bipin Attending Unavailable Yfn Mccarthy Referring Unavailable FriendBipin Attending Unavailable Miedel, [place] Primary Care Unavailable Miedel, Margot Referring Unavailable Nella Hopkins Attending Unavailable Miedel, Margot Referring Unavailable Miedel, Margot Primary Care Unavailable Wes, Buster Attending Unavailable Miedel, Margot Primary Care Unavailable Annetta Mar Referring Unavailable Nella Hopkins Attending Unavailable Miedel, Margot Referring Unavailable Miedel, Margot Primary Care Unavailable Wes, Buster Attending Unavailable Miedel, Margot Referring Unavailable Miedel, Margot Primary Care Unavailable Wes, Buster Attending Unavailable Miedel, Margot Referring Unavailable Miedel, Margot Primary Care Unavailable Carmen Hollingsworth NP Attending Unavailable Miedel, Margot Referring Unavailable Miedel, Margot Primary Care Unavailable Robotham, Yvonne Attending Unavailable Miedel, Margot Referring Unavailable Miedel, Margot Primary Care Unavailable Wes, Buster Attending Unavailable Miedel, Margot Referring Unavailable Miedel, Margot Primary Care Unavailable Yfn Dietz Attending Unavailable Nella Hopkins Attending Unavailable Nella Hopkins Referring Unavailable Miedel, Margot Primary Care Unavailable Allergies Allergy Classification Reported Allergen(s) Allergy Type Date of Onset Reaction(s) Facility (20 sources) Penicillins; Translations: [PENICILLINS] Allergy to substance 06-12-2008 [facility] Medications Current Medications Medication Drug Class(es) Dates Sig (Normalized) Sig (Original) [id number] 200 actuat albuterol 0.09 mg/actuat metered dose inhaler (20 sources) beta2-Adrenergic Agonist Start: 07-09-2024 take 2 puff(s) by inhalation every four hours as needed for wheezing albuterol HFA (PROVENTIL HFA, VENTOLIN HFA) 90 mcg/actuation inhaler Inhale 2 puffs as instructed every 4 hours as needed for wheezing/shortnes s of breath. 07/09/2024 Active Start: 08-14-2021 take 1 puff(s) by in halation every four hours as needed Albuterol Sulfate Active 2 PUFF INHALATION EVERY 4 HOURS NEEDED August 14, 2021 9:24pm Start: 08-14-2021 albuterol HFA (PROVENTIL HFA, VENTOLIN HFA) 90 mcg/actuation inhaler Inhale as instructed. 0 08/14/2021 Active Start: 08-14-2021 take 1 puff(s) by in halation every four hours as needed Albuterol Sulfate Active 2 PUFF INHALATION EVERY 4 HOURS NEEDED August 13, 2021 11:00pm End: 12-31-2021 take 8 puff(s) by inhalation every six hours as needed for wheezing albuterol HFA (PROVENTIL HFA) inhaler Inhale 8 Puffs as instructed every 6 hours as needed for wheezing/shortness of breath. 0 12/31/2021 Discontinued (Course of therapy completed) Comment on above: Inhale 8 Puffs as in structed every 6 hours as needed for wheezing/shortness of breath. Inhale as instructed . apixaban 5 mg oral tablet (14 sources) Factor Xa Inhibitor Start: 08-13-19 End: 10-02-19 take 1 tablet by mouth twice daily ELIQUIS 5 mg tab(s) TAKE 1 TABLET BY MOUTH 2 TIMES A DAY. START 08/21/24 08/12/2024 Active 24 hr budesonide 9 mg extended release oral capsule (18 sources) Corticosteroid Start: 08-13-19 End: 10-14-19 budesonide (ORTIKOS) 9 mg capsule, extended release 9 mg. 08/12/2024 Active 12 hr buPROPion hydrochloride 150 mg extended release oral tablet (20 sources) Aminoketone Start: 08-15-19 take 1 tablet by mouth once daily Bupropion Hcl 150 mg tablet sustained-release 12 hr Active 150 mg PO DAILY August 14, 2021 12:00am Start: 05-29-2017 take 1 tablet by twice daily buPROPion SR (ZYBAN SR; WELLBUTRIN SR) 150 mg 12 hr tablet Indications: Depressive disorder Take 1 tablet by mouth twice daily. 180 tablet 1 05/29/2017 Active Comment on above: Take 1 tablet by doyle twice daily. cephalexin 500 mg oral capsule (6 sources) Cephalosporin Antibacterial Start: 10-29-19 take 1 capsule by mouth three times daily cephALEXin (KEFLEX) 500 mg capsule Indications: Skin ulcer of toe with fat layer exposed, unspecified laterality (HCC) Take 1 capsule by mouth three times a day. 21 capsule 10/28/2024 Active colestipol hydrochloride 1000 mg oral tablet (7 sources) Bile Acid Sequestrant Start: 08-13-19 End: 11-12-19 Colestipol 1 gram tablet Active 2 g PO TWICE A DAY 360 90 3 November 11, 2024 3:59pm 24 hr dilTIAZem hydrochloride 120 mg extended release oral capsule (20 sources) Calcium Channel Jada Start: 08-16-19 End: 12-20-19 take 1 capsule by mouth once daily dilTIAZem CR (TIAZAC, TAZTIA XT) 360 mg 24 hr capsule Indications: Persistent atrial fibrillation (HCC) Take 1 capsule by mouth once daily. 90 capsule 3 08/15/2022 12/19/2022 Discontinued Start: 07-19-2022 End: 11-28-2022 take 360 mg by mouth once daily Diltiazem Hcl Disconti nued 360 MG PO DAILY July 19, 2022 11:21am November 28, 2022 9:30am Start: 06-06-2022 End: 09-04-2022 take 1 capsule by mouth twice daily dilTIAZem CR (TIAZAC, TAZTIA XT) 120 mg 24 hr capsule Indications: Persistent atrial fibrillation (HCC) Take 1 capsule by mouth twice daily. 180 capsule 3 06/06/2022 09/04/2022 Active Start: 06-02-2022 End: 09-24-2023 take 1 capsule by mouth once daily, then take 1 capsule by mouth every twenty-four hours dilTIAZem CD (CARDIZEM CD, CARTIA XT) 120 mg 24 hr capsule Take 120 mg by mouth once daily. 11/28/2022 Active Comment on above: Take 1 capsule by mo uth twice daily. Take 120 mg by mouth once daily. Take 1 capsule by mo uth once daily. FREESTYLE ANNEL 2 READER (20 sources) Start: 07-28-2022 FREESTYLE ANNEL 2 READER USE DIRECTED TO CHECK AT LEAST 4 TIMES DAILY 07/28/2022 Active Start: 07-28-2022 FREESTYLE LIBR E 2 READER USE DIRECTED TO CHECK AT LEAST 4 TIMES DAILY 0 07/28/2022 Active Comment on above: USE DIRECTED TO C HECK AT LEAST 4 TIMES DAILY FREESTYLE ANNEL 2 SENSOR kit (20 sources) Start: 09-18-2022 FREESTYLE ANNEL 2 SENSOR kit USE 1 SENSOR EVERY 14 DAYS. 09/18/2022 Active Start: 09-18-2022 FREESTYLE LIBR E 2 SENSOR kit USE 1 SENSOR EVERY 14 DAYS. 0 09/18/2022 Active Comment on above: USE 1 SENSOR EVERY 1 4 DAYS. furosemide 40 mg oral tablet (20 sources) Loop Diuretic Start: 09-07-2021 End: 09-15-2024 take 2 tablets by mouth once daily furosemide (LASIX) 40 mg tablet Take 80 mg by mouth once daily. 09/07/2021 Active Start: 09-07-2021 End: 08-05-2024 take 1 tablet by mouth twice daily Furosemide 40 mg tablet Discontinued 40 mg PO TWICE A DAY 60 11 September 04, 2023 8:13am August 05, 2024 9:09pm Start: 09-07-2021 End: 09-07-2021 take 2 tablets by mouth twice daily Furosemide (Lasix) 20 mg tablet Discontinued 40 mg PO TWICE A DAY September 07, 2021 10:06am September 07, 2021 10:15am start 08/17/21 Start: 08-16-2021 End: 09-07-2021 take 3 tablets by mouth once daily Furosemide (Lasix) 20 mg tablet Discontinued 60 mg PO DAILY 90 0 August 16, 2021 12:00am September 07, 2021 10:07am start 08/17/21 Comment on above: Take 40 mg by mouth twice daily. Take 80 mg by mouth once daily. 3 ml insulin glargine 100 unt/ml pen injector (20 sources) Insulin Analog Start: 05-17-2023 Insulin Glargine (Lantus Solostar U-100 Insulin) 100 unit/mL (3 mL) insulin pen Active 30 U SC TWICE A DAY May 17, 2023 9:49am diabetes Start: 05-17-2023 Insulin Glargi ne (Lantus Solostar U-100 Insulin) 100 unit/mL (3 mL) insulin pen Active 60 U SC AT BEDTIME May 17, 2023 9:49am Start: 05-22-2022 End: 05-17-2023 Insulin Glargine (Lantus Justine ostar U-100 Insulin) 100 unit/mL (3 mL) insulin pen Discontinued 50 U SC AT BEDTIME May 22, 2022 1:00am May 17, 2023 9:50am insulin glargine (LANTUS SOLOSTAR, BASAGLAR KWIKPEN) 100 unit/mL (3 mL) Inject 50 Units subcutaneously. Once daily Active insulin glargine (LANTUS SOLOSTAR, BASAGLAR KWIKPEN) 100 unit/mL (3 mL) Inject 50 Units subcutaneously. Once daily 0 Active Comment on above: Inject 50 Units subc utaneously. Once daily 3 ml insulin lispro 100 unt/ml pen injector (20 sources) Insulin Analog Start: 2022 inject 100 [IU] by subcutaneous injection at mealtime insulin lispro (HUMALOG KWIKPEN) 100 unit/mL INJECT 5 TO 15 UNITS SUBCUTANEOUSLY WITH MEALS 05/30/2022 Active Comment on above: INJECT 5 TO 15 UNITS SUBCUTANEOUSLY WITH MEALS lisinopril 2.5 mg oral tablet (20 sources) Angiotensin Converting Enzyme Inhibitor Start: 2017 End: 2021 take 1 tablet by mouth once daily Lisinopril 2.5 mg tablet Active 2.5 mg PO DAILY May 22, 2022 1:00am blood pressure Comment on above: Take 1 tablet by doyle th once daily. loperamide hydrochloride 2 mg oral capsule (5 sources) Opioid Agonist Start: 2024 take 1 capsule by mouth three times daily as needed Loperamide 2 mg Capsule Active 2 mg PO THREE TIMES A DAY as needed for loose stool 30 August 12, 2024 11:21am metFORMIN hydrochloride 1000 mg oral tablet (20 sources) Biguanide Start: 2017 take 1 tablet by mouth twice daily at mealtime metFORMIN (GLUCOPHAGE) 1,000 mg tablet Indications: Uncontrolled type 2 diabetes mellitus without complication, without long-term current use of insulin Take 1 tablet by mouth twice daily with meals. 180 tablet 1 05/29/2017 Active Comment on above: Take 1 tablet by doyle twice daily with meals. metoprolol tartrate 75 mg oral tablet (20 sources) beta-Adrenergic Jada Start: 2024 End: 2024 take 1 tablet by mouth every twelve hours metoprolol tartrate, short acting, 75 mg tab Indications: Persistent atrial fibrillation (HCC) Take 1 tablet by mouth every 12 hours. 180 tablet 1 06/23/2024 Active Start: 04-17-2024 End: 06-23-2024 take 1 tablet by mouth every twelve hours metoprolol tartrate, short acting, (LOPRESSOR) 50 mg tablet Take 1 tablet by mouth every 12 hours. 04/17/2024 06/23/2024 Discontinued Start: 04-17-2024 End: 08-05-2024 take 1 tablet by mouth twice daily Metoprolol Tartrate 50 mg tablet Discontinued 50 mg PO TWICE A DAY 180 April 17, 2024 1:00am August 05, 2024 9:07pm Start: 03-24-2024 End: 06-23-2024 take 2 tablets by mouth twice daily Metoprolol Succinate 25 mg tablet extended release 24 hr Discontinued 12.5 mg PO TWICE A DAY April 17, 2024 1:00am April 17, 2024 5:47pm OZEMPIC 0.25 mg or 0.5 mg (2 mg/3 mL) pen (7 sources) Start: 07-14-2024 inject 0.25 mg by subcutaneous injection every week, then inject 0.5 mg by subcutaneous injection every week OZEMPIC 0.25 mg or 0.5 mg (2 mg/3 mL) pen INJECT 0.25 MG SUBCUTANEOUSLY ONCE WEEKLY FOR 4 WEEKS, THEN INJECT 0.5 MG WEEKLY FOR 2 WEEKS 07/14/2024 Active microencapsulated potassium chloride 10 meq extended release oral tablet (20 sources) Start: 08-29-2024 take 1 tablet by mouth once daily potassium chloride ER (KLOR-CON M10) 10 mEq tablet Take 1 tablet by mouth once daily. 08/29/2024 Active Start: 08-12-2024 End: 11-11-2024 take 1 tablet by mouth twice daily at mealtime Potassium Chloride 20 mEq Tablet,Er Particles/Crystals Discontinued 20 meq PO TWICE DAILY WITH MEALS 10 5 0 August 12, 2024 12:00am November 11, 2024 3:36pm Start: 10-28-2021 End: 05-17-2023 take 2 tablets by mouth once daily Potassium Chloride 10 mEq tablet extended release Discontinued 0 .ROUTE .COMPLEX 60 12 September 28, 2022 9:22am May 17, 2023 9:50am Take 2 tablets by mouth once daily Start: 10-04-2021 End: 07-18-2024 take 1 tablet by mouth once daily potassium chloride (K-TAB) 10 mEq tablet Take 10 mEq by mouth once daily. 10/28/2021 Active Start: 08-16-2021 End: 10-04-2021 take 2 tablets by mouth once daily Potassium Chloride 10 mEq tablet extended release Discontinued 20 meq PO DAILY 60 11 September 07, 2021 10:14am October 04, 2021 10:27am Start: 08-16-2021 End: 10-04-2021 take 20 mEq by mouth once daily Potassium Chloride Discontinued 20 MEQ PO DAILY 60 September 07, 2021 10:14am October 04, 2021 10:27am Comment on above: Take 20 mEq by mouth once daily. Take 10 mEq by mouth once daily. Psyllium Husk (Aspartame) (Daily Fiber (Psyllium-Aspart)) 3 gram Powder In Packet (2 sources) Start: 08-12-2024 Psyllium Husk (Aspartame) (Daily Fiber (Psyllium-Aspart)) 3 gram Powder In Packet Active 1 NMA PO TWICE A DAY 54 August 12, 2024 12:00am Psyllium Husk (Daily Fiber (Psyllium-Aspart)) 3 gram Powder In Packet (3 sources) Start: 08-12-2024 Psyllium Husk (Daily Fiber (Psyllium-Aspart)) 3 gram Powder In Packet Active 1 NMA PO TWICE A DAY 54 0 August 12, 2024 12:00am Start: 08-12-2024 Psyllium Husk (Daily Fiber (Psyllium-Aspart)) 3 gram Powder In Packet Active 1 NMA PO TWICE A DAY 54 August 12, 2024 12:00am sacubitril 24 mg / valsartan 26 mg oral tablet (6 sources) Angiotensin 2 Receptor Jada Start: 12-13-2021 take 1 tablet by mouth twice daily Sacubitril-Valsartan (Entresto) 24-26 mg tablet Active 1 TABLET PO TWICE A DAY 60 December 12, 2021 11:00pm Completed/Discontinued Medications Medication Drug Class(es) Dates Sig (Normalized) Sig (Original) amiodarone hydrochloride 200 mg oral tablet (20 sources) Antiarrhythmic Start: 10-04-2021 End: 12-31-2021 take 1 tablet by mouth twice daily Amiodarone 200 mg tablet Discontinued 200 mg PO TWICE A DAY 60 October 04, 2021 10:25am October 31, 2021 11:43am this will be twice a day until your cardioversion, then will discuss dose Start: 09-07-2021 End: 10-04-2021 take 1 tablet by mouth once daily Amiodarone 200 mg tablet Discontinued 200 mg PO DAILY 30 September 07, 2021 10:13am October 04, 2021 10:27am Start: 08-16-2021 End: 09-07-2021 take 1 tablet by mouth twice daily, then take 1 tablet by mouth once daily Amiodarone 200 mg tablet Discontinued 200 mg PO TWICE A DAY 60 0 August 16, 2021 12:00am September 07, 2021 10:07am one twice a day for two weeks, then one daily thereafter Comment on above: TAKE 1 TABLET BY DOYLE TH TWICE DAILY UNTIL CARDIOVERSION, THEN WILL DISCUSS DOSE Ascorbic Acid (2 sources) Vitamin C End: 01-02-2022 ASCORBIC ACID (VITAMIN C ORAL) Take by mouth once daily. 0 01/02/2022 Discontinued (Other) ASCORBIC ACID (V ITAMIN C ORAL) Take by mouth once daily. 0 Active Comment on above: Take by mouth once d aily. carvedilol 25 mg oral tablet (20 sources) alpha-Adrenergic Jada, beta-Adrenergic Jada Start: 09-07-2021 End: 04-17-2024 take 1 tablet by mouth twice daily at mealtime Carvedilol 25 mg tablet Discontinued 25 mg PO TWICE A DAY 180 January 28, 2024 8:11am April 17, 2024 3:48pm must administer with a meal/food Start: 08-16-2021 End: 09-07-2021 take 1 tablet by mouth twice daily at mealtime Carvedilol 12.5 mg tablet Discontinued 12.5 mg PO TWICE A DAY 60 0 August 16, 2021 12:00am September 07, 2021 10:13am must administer with a meal/food Comment on above: Take 25 mg by mouth twice daily with meals. ciprofloxacin 500 mg oral tablet (5 sources) Quinolone Antimicrobial Start: 2024 End: 2024 take 1 tablet by mouth twice daily Ciprofloxacin Hcl (Cipro) 500 mg tablet Discontinued 500 mg PO TWICE A DAY 10 August 12, 2024 12:00am November 11, 2024 3:34pm 0.5 ml dulaglutide 1.5 mg/ml auto-injector (2 sources) GLP-1 Receptor Agonist Start: 2017 End: 2021 inject 0.75 mg by subcutaneous injection every week dulaglutide (TRULICITY) 0.75 mg/0.5 mL pnij Inject 0.75 mg subcutaneously once each week. Inject dose once per week. Discard Pen After 4 Pen 5 05/29/2017 12/31/2021 Discontinued (Course of therapy completed) Comment on above: Inject 0.75 mg subcu taneously once each week. Inject dose once per week. Discard Pen After glimepiride 4 mg oral tablet (20 sources) Sulfonylurea Start: 2017 End: 2022 take 1 tablet by mouth twice daily at mealtime glimepiride (AMARYL) 4 mg tablet Indications: Uncontrolled type 2 diabetes mellitus without complication, without long-term current use of insulin Take 1 tablet by mouth twice daily with meals. 180 tablet 1 05/29/2017 06/06/2022 Discontinued (Discontinued by another Health Care Provider) Comment on above: Take 1 tablet by doyle th twice daily with meals. insulin isophane, human 100 unt/ml injectable suspension (20 sources) Start: 2021 End: 2022 NOVOLIN N NPH U-100 INSULIN 100 unit/mL injection INJECT 20 UNITS IN THE MORNING AND EVENING, APPROX. 12 HOURS APART 0 09/27/2021 06/06/2022 Discontinued (Other) Start: 08-14-2021 insulin NPH in jection (HumuLIN N,NovoLIN N) Insulin Nph Isoph U-100 Human (Novolin N Nph U-100 Insulin) 100 unit/mL suspension Active 20 UNIT SC TWICE A DAY August 13, 2021 11:00pm 0 08/14/2021 Active Start: 08-14-2021 Insulin Nph Is oph U-100 Human (Novolin N Nph U-100 Insulin) 100 unit/mL suspension Active 20 UNIT SC TWICE A DAY August 13, 2021 11:00pm Comment on above: INJECT 20 UNITS IN T HE MORNING AND EVENING, APPROX. 12 HOURS APART Insulin Nph Isoph U- 100 Human (Novolin N Nph U-100 Insulin) 100 unit/mL suspension Active 20 UNIT SC TWICE A DAY August 13, 2021 11:00pm insulin lispro (HUMALOG KWIKPEN) 100 unit/mL (17 sources) Start: 2022 inject 100 [IU] by subcutaneous injection at mealtime insulin lispro (HUMALOG KWIKPEN) 100 unit/mL INJECT 5 TO 15 UNITS SUBCUTANEOUSLY WITH MEALS 0 05/30/2022 Active Comment on above: INJECT 5 TO 15 UNITS SUBCUTANEOUSLY WITH MEALS metroNIDAZOLE 500 mg oral tablet (5 sources) Nitroimidazole Antimicrobial Start: 2024 End: 2024 take 1 tablet by mouth every eight hours Metronidazole 500 mg tablet Discontinued 500 mg PO Q8H 15 5 0 August 12, 2024 12:00am November 11, 2024 3:36pm ONETOUCH ULTRA2 METER (12 sources) Start: 2021 ONETOUCH ULTRA2 METER USE TO CHECK BLOOD GLUCOSE 0 03/31/2022 Active Comment on above: USE TO CHECK BLOOD G LUCOSE perflutren lipid microspheres 1.3 mL in NaCl (PF) 0.9% 10 mL injection (DEFINITY) (9 sources) Start: 2022 End: 2023 perflutren lipid microspheres 1.3 mL in NaCl (PF) 0.9% 10 mL injection (DEFINITY) Start: 12-19-2022 End: 03-19-2024 perflutren lipid microsphere s 1.3 mL in NaCl (PF) 0.9% 10 mL injection (DEFINITY) Start: 03-08-2022 End: 06-07-2023 perflutren lipid microsphere s 1.3 mL in NaCl (PF) 0.9% 10 mL injection (DEFINITY) pioglitazone 30 mg oral tablet (20 sources) Peroxisome Proliferator Receptor alpha Agonist, Peroxisome Proliferator Receptor gamma Agonist, Thiazolidinedione Start: 08-14-2021 End: 11-16-2021 take 1 tablet by mouth once daily Pioglitazone 30 mg tablet Discontinued 30 mg PO DAILY August 14, 2021 12:00am November 16, 2021 9:33am dm 125 ml sodium chloride 9 mg/ml prefilled syringe (20 sources) Start: 03-08-2022 End: 03-19-2024 sodium chloride 0.9 % (flush) 10 mL (BD POSIFLUSH) spironolactone 25 mg oral tablet (20 sources) Aldosterone Antagonist Start: 10-04-2021 End: 10-10-2024 take 1 tablet by mouth once daily Spironolactone 25 mg tablet Discontinued 0 .ROUTE .COMPLEX 30 September 24, 2023 8:08am August 12, 2024 4:59pm diuretic Take 1 tablet by mouth once daily Comment on above: Take 25 mg by mouth once daily. Vitamin B Complex (2 sources) Start: 06-12-2008 End: 12-31-2021 vitamin b complex(B COMPLETE TAB) Take one(1) tablet daily. 0 06/12/2008 12/31/2021 Discontinued (Course of therapy completed) Start: 06-12-2008 vitamin b comp carrie(B COMPLETE TAB) Take one(1) tablet daily. 0 06/12/2008 Active Comment on above: Take one(1) tablet d aily. warfarin sodium 5 mg oral tablet (20 sources) Vitamin K Antagonist Start: 09-01-2022 End: 10-10-2024 take 2 tablets by mouth once daily warfarin (COUMADIN) 4 mg tablet Take 8 mg by mouth once daily. 09/01/2022 10/10/2024 Discontinued (Course of therapy completed) Start: 02-26-2022 warfarin (COUM JUANY) 2 mg tablet 10 mg. 02/26/2022 Active Start: 02-26-2022 End: 10-10-2024 Warfarin 5 mg tablet Discont inued 5 mg PO .COMPLEX 90 April 15, 2024 10:52am August 05, 2024 9:09pm Two 5 mg orally daily (10mg daily and 12mg on Sun/); as directed Please contact the information source for Protocol details. Start: 02-26-2022 warfarin (COUM JUANY) 5 mg tablet 8 mg. 0 02/26/2022 Active Start: 11-28-2021 End: 08-12-2024 Warfarin 2 mg tablet Discont inued 2 mg PO .COMPLEX 90 3 June 07, 2023 3:21pm August 05, 2024 9:09pm 2 mg orally daily with a two 5 mg tablet to =12 mg on Sun/; or as directed Please contact the information source for Protocol details. Start: 11-28-2021 End: 06-07-2023 Warfarin 5 mg tablet Discont inued 5 mg PO .COMPLEX 90 3 September 01, 2022 10:03am June 07, 2023 3:24pm 5 mg orally daily with a 2 mg tablet to = 7 mg; or as directed Please contact the information source for Protocol details. Start: 09-07-2021 End: 06-06-2022 take 2 tablets by mouth once daily Warfarin 4 mg tablet Discontinued 8 mg PO DAILY September 07, 2021 12:00am November 28, 2021 11:59am Please contact the information source for Protocol details. Start: 09-07-2021 End: 11-28-2021 take 8 mg by mouth once daily Warfarin Discontinued 8 MG PO DAILY September 07, 2021 12:00am November 28, 2021 11:59am Start: 08-16-2021 End: 11-28-2021 take 7.5 mg by mouth once daily Warfarin 5 mg tablet Discontinued 7.5 mg PO DAILY 60 0 August 16, 2021 12:00am November 28, 2021 11:59am start in the afternoon 08/17/21 Please contact the information source for Protocol details. Start: 08-16-2021 End: 11-28-2021 take 7.5 mg by mouth once daily Warfarin Discontinued 7.5 MG PO DAILY 60 August 16, 2021 12:00am November 28, 2021 11:59am start in the afternoon 08/17/21 Comment on above: Take 8 mg by mouth o nce daily. 2 mg. 5 mg. 10 mg. 8 mg. Take 10 mg by mouth once daily. Currently as of 09/27/2022 he takes 10 mg daily except Wed and Terri takes 12 mg Problems Active Problems Problem Classification Problem Date Documented Da te Episodic/Chronic Acquired foot deformities (20 sources) Hallux valgus; Translations: [Hallux valgus (acquired), left foot] Onset: 2 Resolved: 2 07-12-2023 Chronic Administrative/social admission (9 sources) Patient encounter status; Translations: [Encounter for pre-employment examination] 07-20-2023 Episodic Cardiac dysrhythmias (20 sources) Atrial fibrillation; Translations: [Unspecified atrial fibrillation] Onset: 2 Chronic Comment on above: Failed DCCV 10/27/21; cryoballoon catheter ablation of persistent atrial fibrillation, cardioversion performed during ablation 03/01/2022 Chronic ulcer of skin (11 sources) Non-pressure chronic ulcer of other part of left foot with fat layer exposed; Translations: [Ulcer of other part of foot] Onset: 5 07-12-2023 Chronic Congestive heart failure; nonhypertensive (20 sources) Congestive heart failure; Translations: [Heart failure, unspecified] Onset: 2 Chronic Deficiency and other anemia (8 sources) Anemia; Translations: [Anemia, unspecified] 08-14-2024 Episodic Deficiency and other anemia (1 source) Anemia, unspecified; Translations: [Anemia, unspecified] Onset: 5 Episodic Diabetes mellitus with complications (20 sources) Type II diabetes mellitus uncontrolled; Translations: [Type II diabetes mellitus, uncontrolled] Onset: 9 07-03-2015 Chronic Diabetes mellitus without complication (20 sources) Diabetes mellitus; Translations: [Type 2 diabetes mellitus without complications] Onset: 4 10-31-2021 Chronic Diseases of white blood cells (4 sources) Eosinophil count raised; Translations: [Eosinophilia] 08-18-2024 Chronic Essential 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 (20 sources) Essential 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; Translations: [Essential (primary) 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] Onset: 2 Chronic Mood disorders (20 sources) Depressive disorder; Translations: [Depressive disorder] Onset: 3 07-16-2015 Chronic Mycoses (9 sources) Onychomycosis; Translations: [Tinea unguium] Onset: 5 12-28-2022 Episodic Noninfectious gastroenteritis (2 sources) Eosinophilic gastroenteritis; 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] 11-11-2024 Chronic Other and unspecified benign neoplasm (5 sources) Personal history of colonic polyps; Translations: [Personal history of colonic polyps] Episodic Other connective tissue disease (8 sources) Pain of toe of left foot; Translations: [Pain in left toe(s)] 12-28-2022 Episodic Other connective tissue disease (8 sources) Pain of toe of right foot; Translations: [Pain in right toe(s)] 12-28-2022 Episodic Other connective tissue disease (1 source) Pain in left toe(s); Translations: [Pain in toe of left foot] Onset: 5 Episodic Other connective tissue disease (1 source) Pain in right toe(s); Translations: [Pain in toe of right foot] Onset: 5 Episodic Other gastrointestinal disorders (12 sources) Hemorrhagic diarrhea ; Translations: [Diarrhea, unspecified] 08-06-2024 Episodic Other gastrointestinal disorders (16 sources) H/O: gastrointestinal disease; Translations: [Personal history of other diseases of the digestive system] 08-06-2024 Episodic Other lower respiratory disease (3 sources) Dyspnea; Translations: [Dyspnea, unspecified] Episodic Other nutritional; endocrine; and metabolic disorders (20 sources) Morbid obesity; Translations: [Morbid (severe) obesity due to excess calories] 08-15-2021 Chronic Other nutritional; endocrine; and metabolic disorders (11 sources) Morbid (severe) obesity due to excess calories; Translations: [Morbid obesity] Onset: 8 Chronic Other nutritional; endocrine; and metabolic disorders (20 sources) Body mass index 40+ - severely obese; Translations: [Morbid (severe) obesity due to excess calories] Onset: 2 10-10-2017 Chronic Other nutritional; endocrine; and metabolic disorders (12 sources) Body mass index 30+ - obesity; Translations: [Obesity, unspecified] 08-06-2024 Chronic Other nutritional; endocrine; and metabolic disorders (1 source) Obesity, unspecified; Translations: [Obesity, unspecified] Onset: 5 Chronic Other skin disorders (1 source) Keratosis; Translations: [Epidermal thickening, unspecified] 12-28-2022 Episodic Other skin disorders (4 sources) Foot callus; Translations: [Corns and callosities] 08-24-2023 Episodic Callie-; endo-; and myocarditis; cardiomyopathy (except that caused by tuberculosis or sexually transmitted disease) (20 sources) Cardiomyopathy; Translations: [Cardiomyopathy, unspecified] Onset: 2 Chronic Residual codes; unclassified (20 sources) Obstructive sleep apnea syndrome; Translations: [Obstructive sleep apnea (adult) (pediatric)] Onset: 9 11-11-2013 Chronic Residual codes; unclassified (20 sources) Obstructive sleep apnea (adult) (pediatric); Translations: [Obstructive sleep apnea (adult)(pediatric)] Onset: 4 Chronic Unclassified (5 sources) For repeat INR on 08/18/2024 Unclassified (5 sources) Appointment is with HYDROELECT[employer]IC MACHINERY MECHANIC HELPER Nella Hpokins. Unclassified (2 sources) Other persistent atrial fibrillation; Translations: [Persistent atrial fibrillation (HCC)] Onset: 4 Unclassified (1 source) Obesity, Class III, BMI 40-49.9 (morbid obesity); Translations: [Obesity, Class III, BMI 40-49.9 (morbid obesity)] Onset: 8 Past or Other Problems Problem Classification Problem Date Documented Da te Episodic/Chronic Acquired foot deformities (20 sources) Acquired deformity of toe; Translations: [Other deformities of toe(s) (acquired), unspecified foot] Onset: 05-29-2011 Resolved: 09-29-2011 09-29-2011 Episodic Cardiac dysrhythmias (19 sources) Tachycardia; Translations: [Tachycardia, unspecified] Onset: 04-17-2024 06-02-2022 Episodic E Codes: Adverse effects of medical drugs (13 sources) Adverse reaction to drug; Translations: [Adverse effect of unspecified drugs, medicaments and biological substances, initial encounter] Onset: 08-21-2024 08-06-2024 Episodic Intestinal infection (13 sources) Food poisoning; Translations: [Bacterial foodborne intoxication, unspecified] Onset: 08-21-2024 08-06-2024 Episodic Nausea and vomiting (14 sources) Nausea and vomiting; Translations: [Nausea with vomiting, unspecified] Onset: 08-21-2024 08-06-2024 Episodic Other aftercare (20 sources) Long-term current use of anticoagulant; Translations: [assisted (current) use of anticoagulants] Onset: 12-31-2021 Episodic Other aftercare (2 sources) assisted (current) use of anticoagulants; Translations: [Anticoagulant long-term use] Onset: 04-17-2024 Episodic Other and unspecified benign neoplasm (20 sources) Benign neoplasm of colon; Translations: [Benign neoplasm of colon, unspecified] Onset: 06-12-2008 06-12-2008 Episodic Other and unspecified benign neoplasm (20 sources) History of polyp of colon; Translations: [Personal history of colonic polyps] Onset: 10-03-2010 Resolved: 09-29-2011 05-11-2022 Episodic Other diseases of veins and lymphatics (20 sources) Peripheral venous insufficiency; Translations: [Venous insufficiency (chronic) (peripheral)] Onset: 01-14-2015 01-14-2015 Episodic Other gastrointestinal disorders (1 source) Diarrhea, unspecified; Translations: [Diarrhea, unspecified] Onset: 08-21-2024 Episodic Other gastrointestinal disorders (1 source) Personal history of other diseases of the digestive system; Translations: [Personal history of other diseases of the digestive system] Onset: 08-21-2024 Episodic Other lower respiratory disease (1 source) Shortness of breath; Translations: [Shortness of breath] Onset: 07-23-2024 Episodic Other nervous system disorders (20 sources) Abnormal gait; Translations: [Unspecified abnormalities of gait and mobility] Onset: 05-29-2011 Resolved: 09-29-2011 09-29-2011 Episodic Other screening for suspected conditions (not mental disorders or infectious disease) (13 sources) INR raised; Translations: [Abnormal coagulation profile] Onset: 08-21-2024 08-06-2024 Episodic Other skin disorders (20 sources) Sebaceous cyst of skin; Translations: [Sebaceous cyst] Onset: 07-20-2008 Resolved: 09-19-2010 09-19-2010 Episodic Other skin disorders (20 sources) Ingrowing nail; Translations: [Ingrowing nail] Onset: 04-12-2009 Resolved: 09-19-2010 09-19-2010 Episodic Residual codes; unclassified (20 sources) Family [...] specified postprocedural states] Onset: 03-01-2022 03-02-2022 Episodic Comment on above: cryoballoon catheter ablation of persistent atrial fibrillation, cardioversion performed during ablation 03/01/2022 Residual codes; unclassified (1 source) Other specified postprocedural states; Translations: [Status post catheter ablation of atrial fibrillation] Onset: 07-08-2024 Episodic Substance-related disorders (20 sources) Tobacco user; Translations: [Nicotine dependence, unspecified, uncomplicated] Onset: 05-17-2012 Resolved: 12-31-2021 05-17-2012 Chronic Unclassified (2 sources) Ulcer of toe of left foot, with fat layer exposed (HCC) 11-13-2024 Results Test Name Value Interpretation Reference Range Facility MR/PATJolie 12-05-2024 MR/PAT[facility] Medical Records Department [address] [place] [address] PAT - Anesthesia 12/05/24 1355 MR#: [id number] Acct: [id number] Name: PEDRO KARIMI Rep #: [id number] : 1965 59 From: Nicolas Viveros MD PCP: Dr. Margot Mai MD Status:PRE [facility] Y Race: C Location: EN Pre-Assessment Diagnosis/Proposed Procedure Planned Operative Procedure(s): EGD Anesthesia History Anesthesia History - weight engineer: Anesthesia History - weight engineer Hx Hospitalization Yes: [facility] 12/05/24 13:23 Any Problems With Anesthesia No 12/05/24 13:23 Cholinesterase deficiency No 12/05/24 13:23 You/Your Family Experience No 12/05/24 13:23 fever (hyperthermia) with Relationship Recent Exposure to Contagious No 05/24/22 08:47 Disease Does patient have nerve No 12/05/24 13:23 stimulator Patient instructed to have device shut off --Does patient have Pacemaker or ICD? When Was Last Pacemaker Check QUESTION #4 FULL TEXT: You/Your Family Experience fever (hyperthermia) with Anesthesia Last Oral Intake Last Oral intake: Last Oral Intake NPO since Meds taken in AM with sips of water? Meds patient instructed to take am of surgery PONV PONV - weight engineer: PONV - weight engineer Female No 12/05/24 13:23 HX of Motion Sickness No 12/05/24 13:23 HX of N/V After Surgery No 12/05/24 13:23 Non-Smoker Yes 12/05/24 13:23 Duration of Surgery greater No 12/05/24 13:23 than 60 minutes Number of Risk Factors 1 12/05/24 13:23 PONV Score Low Risk 12/05/24 13:23 Height Weight Height Weight: Anesthesia: Height Weight Height 6 ft 2 in 08/14/24 09:08 Respiratory Assessment Respiratory Assessment - weight engineer: Respiratory Tract Infection Hx - weight engineer Hx Respiratory Tract Infection No 12/05/24 13:23 STOP Sleep Apnea STOP Sleep Apnea - weight engineer: STOP Sleep Apnea - weight engineer Hx Hypertension Yes: CONTROLLED WITH MEDS 12/05/24 13:23 Hx Sleep Apnea Yes 12/05/24 13:23 CPAP Yes 12/05/24 13:23 BIPAP No 12/05/24 13:23 Do you snore loudly (louder than talking or can be heard Do you often feel tired/ fatigued/ sleepy during daytime? Has anyone observed you stop breathing during sleep? STOP Results Positive 12/05/24 13:23 QUESTION #5 FULL TEXT : Do you snore loudly (louder than talking or can be heard through closed doors)? Tobacco Use History Tobacco Use History - weight engineer: Tobacco Use History - weight engineer Tobacco Use Smoking Status Former smoker 12/05/24 13:23 Hx Tobacco Use No 12/05/24 13:23 Years Smoking Packs Smoked per Day Smoking Cessation Date was Yes - quit smoking within 15 12/05/24 13:23 within the last 15 years years Hx Smoking Cessation Date 08/12/21 12/05/24 13:23 Hx Smoking Cessation Counseling Hematologic Medial History Hematologic Hx - weight engineer: Hematologic Medical Hx - contact center professional Hx of Blood Transfusion No 12/05/24 13:23 Hx of Transfusion in last 3 No 12/05/24 13:23 Months Date of Last Transfusion (if within last 3 months) Ever experience any problems No 12/05/24 13:23 with transfusion(s)? Specify any problems Hx of Preganancy in last 3 N/A 12/05/24 13:23 Months Nurse Filling Out Transfusion [id number] 12/05/24 13:23 Questions: Date: 12/05/24 12/05/24 13:23 Time: 13:26 12/05/24 13:23 Patient unable to answer at this time (ie. confused, unrespo /Reproduction History /Reproductive History - weight engineer: /Reproductive Hx- weight engineer Hx Now Gestational Age (in weeks): EDC: Hx Hx Para Hx Section S[facility] Medical History (Updated 12/05/24 @ 13:36 by Yefri Ramirez) Wears glasses MRSA infection Insulin dependent diabetes mellitus Restless legs Former smoker CPAP (continuous positive airway pressure) dependence Sleep apnea History of echocardiogram Cardiology follow-up encounter History of atrial fibrillation Hx of colonic polyps Non-ischemic cardiomyopathy HFrEF (heart failure with reduced ejection fraction) Persistent atrial fibrillation assisted current use of anticoagulant Essential 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 Atrial fibrillation with rapid ventricular response MARIELLA (obstructive sleep apnea) Diabetes COPD (chronic obstructive pulmonary disease) Home Medications ???Medication ???Instructions ???Recorded ???Last Taken ???Type bupropion HCl 150 mg tablet,12 hr 150 mg PO BID antidepressant 08/0205/23/22 History sustained-release metformin 1,000 mg tablet 1,000 mg PO BID dm 08/14/21 History li (more content not included)... Normal [facility] CNCOon 12-02-2024 CNCO Letter Text Letter Text Normal [facility] CNOVon 11-27-2024 CNOV Office Visit (PODIWS ) PEDRO KARIMI ([id number]) 1965 M Date Time Provider Department 11/27/24 8:15 AM LUCAS LUTZ PODIWS During your visit today, we recorded the following information about you: Dari Sanchez, RN 11/27/2024 9:10 AM Signed Patient presents with: Left Foot - Ulcer: Healing, per patient decreased redness. Patient reports improvement. Lucas Lutz 11/27/2024 8:49 AM Signed - Clean the second-toe wound daily and apply a fresh Aquacel dressing secured with gauze. - Change the dressing once a day; keep it dry and gently pat it dry if it becomes wet. - Use the gel toe spacer provided to off-load pressure on the ulcer site. - Place the pressure-relief pads in your shoe as directed to further reduce rubbing on the second toe. - Avoid direct pressure or friction on the second toe when walking. - After the wound fully closes, you may stop the daily dressings and continue using the toe spacer for protection. - Return in three weeks for a wound check to confirm complete healing and discuss next steps. Christiane Roe LPN 11/27/2024 9:10 AM Signed Patient declined dressing. Patient was provided Aquacel for dressing changes. SIOBHAN Eller Matthew 11/27/2024 9:10 AM Signed Subjective Pedro Karimi is a 59-year-old male presenting for follow-up of a left second toe ulcer. Left Second Toe Ulcer: - Using Aquacel on the wound. - Gel toe spacer broke; requests a replacement. - Denies using a toe cap. - Denies pain during debridement. Skin: (+) ulcer left second toe Neurological: (+) decreased sensation left foot PAST MEDICAL HISTORY Diagnosis Date Anticoagulant long-term use indication: stroke prevention atrial fibrillation At risk for stroke [id number] = 2 (CHF, DM) Atypical atrial flutter (HCC) 06/16/2022 Benign neoplasm of colon 06/12/2008 Tubular adenoma. Chronic fatigue syndrome Chronic HFrEF (heart failure with reduced ejection fraction) (HCC) Crohn's disease (HCC) Depressive disorder, not elsewhere classified 08/03/2012 [...] cryoablation/PVAI for atrial fibrillation 03/01/2022; [facility] Dr. Nogueira Type II or unspecified type diabetes mellitus without mention of complication, uncontrolled 06/12/2008 Current Outpatient Medications Medication Sig Dispense Refill budesonide (ORTIKOS) 9 mg capsule, extended release 9 mg. albuterol HFA (PROVENTIL HFA, VENTOLIN HFA) 90 mcg/actuation inhaler Inhale 2 puffs as instructed every 4 hours as needed for wheezing/shortness of breath. ELIQUIS 5 mg tab(s) TAKE 1 TABLET BY MOUTH 2 TIMES A DAY. START 08/21/24 OZEMPIC 0.25 mg or 0.5 mg (2 mg/3 mL) pen INJECT 0.25 MG SUBCUTANEOUSLY ONCE WEEKLY FOR 4 WEEKS, THEN INJECT 0.5 MG WEEKLY FOR 2 WEEKS potassium chloride ER (KLOR-CON M10) 10 mEq tablet Take 1 tablet by mouth once daily. metoprolol tartrate, short acting, 75 mg tab Take 1 tablet by mouth every 12 hours. 180 tablet 1 dilTIAZem CD (CARDIZEM CD, CARTIA XT) 120 mg 24 hr capsule Take 120 mg by mouth once daily. insulin glargine (LANTUS SOLOSTAR, BASAGLAR KWIKPEN) 100 unit/mL (3 mL) Inject 50 Units subcutaneously. Once daily insulin lispro (HUMALOG KWIKPEN) 100 unit/mL INJECT 5 TO 15 UNITS SUBCUTANEOUSLY WITH MEALS furosemide (LASIX) 40 mg tablet Take 80 mg by mouth once daily. buPROPion SR (ZYBAN SR; WELLBUTRIN SR) 150 mg 12 hr tablet Take 1 tablet by mouth twice daily. 180 tablet 1 lisinopril (ZESTRIL) 2.5 mg tablet Take 1 tablet by mouth once daily. 90 tablet 1 metFORMIN (GLUCOPHAGE) 1,000 mg tablet Take 1 tablet by mouth twice daily with meals. 180 tablet 1 cephALEXin (KEFLEX) 500 mg capsule Take 1 capsule by mouth three times a day. 21 capsule 0 TRUEPLUS PEN NEEDLE 31 gauge x 1/4 ndle USE 4 NEEDLES DAILY FOR INJECTIONS FREESTYLE ANNEL 2 READER USE DIRECTED TO CHECK AT LEAST 4 TIMES DAILY FREESTYLE ANNEL 2 SENSOR kit USE 1 SENSOR EVERY 14 DAYS. pen needle, diabetic 31 gauge x 15/64 ndle USE 4 NEEDLES DAILY potassium chloride (K-TAB) 10 mEq tablet Take 10 mEq by mouth once daily. No current facility-administered medications for this visit. Family History Problem Relation Age of Onset Stroke Mother COPD Mother Colon Cancer Father Heart Sister he's not sure, something involving an implant ? pacemaker No Known Problems Sister Alcohol abuse Brother Alcohol abuse Brother No Known Problems Brother Heart Failure M (more content not included)... Normal [facility] Cardiology Visit Reporton Cardiology Visit Report [facility] [address] [place] [address] OFFICE VISIT Date of Service: 11/20/24 MR#: [id number] Acct: [id number] Name: PEDRO KARIMI Rep #: [id number] : 1965 Provider: SOLE osullivan Age/Sex: 59/M Location: [facility] Status: Signed HPI HPI History of Present Illness Details: Pedro Karimi is a 59-year-old gentleman who presents here today for a cardiovascular followup visit. In August of 2021, he was hospitalized for acute congestive heart failure with atrial fibrillation with RVR. Patient did require IV amiodarone and was transitioned to oral amiodarone. He did undergo an echocardiogram which demonstrated a decreased ejection fraction of 15% with pulmonary 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. It was felt that his tachycardia had induced his cardiomyopathy however outpatient stress testing was recommended once his rate was controlled. He was discharged home on lisinopril, amiodarone, carvedilol, furosemide, potassium chloride and Coumadin. Patient did undergo a cardioversion last week however this was unsuccessful. He had a second cardioversion last month on an increased dose on amiodarone. This also was unsuccessful. He underwent a cardiac catheterization in November of 2021 which demonstrated angiographically normal coronary arteries. In February 2022 he underwent cryoablation with Dr. Nogueira. Patient had EP f/u 06/05 (3 month post cryo PVI with Dr. Nogueira), found to be in atrial flutter/atrial tach, cardizem was increased from 120mg to 240mg at that time and DCCV scheduled for 07/03 @ [facility]. On 07/03 DCCV was canceled because pt's INR was subtherapeutic (he had been holding 5 days for colonoscopy in late May). At that time he was still in atrial flutter with ventricular response in the 120s and cardizem was further increased to 360mg per day. Echocardiogram done in 05/2022 demonstrated and EF of 47%. He did undergo a DCCV with Dr. Nogueira in 08/2022. He does check with a cardiomobile device and was noted to be in SR. From a cardiac standpoint, the patient is doing well. He denies any palpitations, chest pain, pressure or heaviness. He denies SOB, Orthopnea, and PND. He does not have bleeding issues; no blood in urine, stool, or nosebleeds. He denies any decrease in energy level, myalgias, or claudication. He does not have edema, or sudden weight gain. He denies lightheadedness, dizziness, syncopal or near syncopal episodes, and headaches. 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 Required: No Is patient in pain?: No Allergies Penicillins Allergy (Verified 11/20/24 08:58) PT UNSURE OF REACTION Medications ???Medication ???Instructions ???Recorded ???Confirmed ???Type bupropion HCl 150 mg tablet,12 hr 150 mg PO BID antidepressant 08/0211/20/24 History sustained-release metformin 1,000 mg tablet 1,000 mg PO BID dm 08/14/21 History lisinopril 2.5 mg tablet 2.5 mg PO DAILY blood pressure 02/0311/20/24 History insulin glargine 100 unit/mL (3 30 unit subcut BID diabetes 11/20/24 History mL) subcutaneous pen (Lantus Solostar U-100 Insulin) diltiazem HCl 120 mg 120 mg PO DAILY heart rate #90 cap s 09/24/23 11/20/24 Rx capsule,extended release 24 hr potassium chloride 10 mEq 10 meq PO DAILY supplement #90 tab s 07/18/24 11/20/24 Rx tablet,extended release metoprolol tartrate 75 mg tablet 75 mg PO Q12H blood pressure 08/0511/20/24 History loperamide 2 mg capsule 2 mg PO TID PRN loose stool #30 11/20/24 Rx caps psyllium husk 3 gram oral powder 1 packet PO BID #54 ea 08/12/24 Rx packet (Daily Fiber (psyllium-aspartame)) furosemide 40 mg tablet 80 mg (2 x 40 mg) PO DAILY 5 11/20/24 Rx diuretic #180 tabs apixaban 5 mg tablet 5 mg PO BID #180 tabs 10/01/2403/07 Rx budesonide 9 mg capsule,extended 9 mg PO DAILY #30 caps 10/13/24 Rx release colestipol 1 gram tablet 2 g (2 x 1 gram) PO BID 90 days 11/20/24 Rx #360 tabs Ejection fraction %: 45 Have you fallen in the past year?: No PFSH Medical History (Reviewed 11/20/24 @ 08:58 by Carmen Hollingsworth 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 [facility] PEDRO KARIMI ([id number]) 1965 M Date Time Provider Department 11/13/24 8:00 AM LUCAS LUTZ During your visit today, we recorded the following information about you: Christiane Roe LPN 11/13/2024 9:09 AM Signed AMB ROOMING INTAKE FLOWSHEET DATA Patient presents with: Right 2nd Toe - Established Patient, Follow Up, Diabetic Foot Ulcer, Numbness, Swelling SIOBHAN Eller Matthew 11/13/2024 8:34 AM Signed - Keep using the Aquacel dressing on your left second toe; cover it with a clean gauze to hold it in place and change the dressing per instructions. - Wear the bunion splint placed between your big toe and second toe to reduce pressure on the wound. - Use the toe-spacer device between your big toe and second toe to maintain separation; remove it if you notice excessive moisture. - Obtain a repeat X-ray of your left second toe today to compare with the October 28 images and evaluate for any bone infection. - Monitor the wound?s healing--if you see increased redness, swelling, drainage, or pain, contact the clinic promptly. Lucas Lutz 11/13/2024 9:09 AM Signed Subjective Pedro Valentineser is a 59-year-old male with a history of diabetes mellitus, presenting for follow-up of a left second toe ulceration. Left Second Toe Ulceration: - Ulceration on the left second toe was initially noted on 10/28. - Ulceration measured 5 mm x 5 mm on 10/28; currently measures 2 mm x 2 mm. - Ulceration is reportedly improving with the use of Aquacel. - Bunion splint provided previously is not effectively reducing pressure on the toe. - Previous bunion surgery on the left foot; bunion has recurred, causing rubbing on the second toe. - Recent x-ray suggested a possible fracture in the middle phalanx of the second toe. - Recent wound culture showed skin mello; currently on Keflex. - Changed jobs recently; insurance status is currently being resolved. Neurological: (+) numbness of left second toe PAST MEDICAL HISTORY Diagnosis Date Anticoagulant long-term use indication: stroke prevention atrial fibrillation At risk for stroke [id number] = 2 (CHF, DM) Atypical atrial flutter (HCC) 06/16/2022 Benign neoplasm of colon 06/12/2008 Tubular adenoma. Chronic fatigue syndrome Chronic HFrEF (heart failure with reduced ejection fraction) (HCC) Crohn's disease (HCC) Depressive disorder, not elsewhere classified 08/03/2012 [...] cryoablation/PVAI for atrial fibrillation 03/01/2022; [facility] Dr. Nogueira Type II or unspecified type diabetes mellitus without mention of complication, uncontrolled 06/12/2008 Current Outpatient Medications Medication Sig Dispense Refill cephALEXin (KEFLEX) 500 mg capsule Take 1 capsule by mouth three times a day. 21 capsule 0 budesonide (ORTIKOS) 9 mg capsule, extended release 9 mg. albuterol HFA (PROVENTIL HFA, VENTOLIN HFA) 90 mcg/actuation inhaler Inhale 2 puffs as instructed every 4 hours as needed for wheezing/shortness of breath. ELIQUIS 5 mg tab(s) TAKE 1 TABLET BY MOUTH 2 TIMES A DAY. START 08/21/24 OZEMPIC 0.25 mg or 0.5 mg (2 mg/3 mL) pen INJECT 0.25 MG SUBCUTANEOUSLY ONCE WEEKLY FOR 4 WEEKS, THEN INJECT 0.5 MG WEEKLY FOR 2 WEEKS TRUEPLUS PEN NEEDLE 31 gauge x 1/ ndle USE 4 NEEDLES DAILY FOR INJECTIONS potassium chloride ER (KLOR-CON M10) 10 mEq tablet Take 1 tablet by mouth once daily. metoprolol tartrate, short acting, 75 mg tab Take 1 tablet by mouth every 12 hours. 180 tablet 1 dilTIAZem CD (CARDIZEM CD, CARTIA XT) 120 mg 24 hr capsule Take 120 mg by mouth once daily. FREESTYLE ANNEL 2 READER USE DIRECTED TO CHECK AT LEAST 4 TIMES DAILY FREESTYLE ANNEL 2 SENSOR kit USE 1 SENSOR EVERY 14 DAYS. insulin glargine (LANTUS SOLOSTAR, BASAGLAR KWIKPEN) 100 unit/mL (3 mL) Inject 50 Units subcutaneously. Once daily insulin lispro (HUMALOG KWIKPEN) 100 unit/mL INJECT 5 TO 15 UNITS SUBCUTANEOUSLY WITH MEALS pen needle, diabetic 31 gauge x 15/64 ndle USE 4 NEEDLES DAILY furosemide (LASIX) 40 mg tablet Take 80 mg by mouth once daily. potassium chloride (K-TAB) 10 mEq tablet Take 10 mEq by mouth once daily. buPROPion SR (ZYBAN SR; WELLBUTRIN SR) 150 mg 12 hr tablet Take 1 tablet by mouth twice daily. 180 tablet 1 lisinopril (ZESTRIL) 2.5 mg tablet Take 1 tablet by mouth once daily. 90 tablet 1 metFORMIN (GLUCOPHAGE) 1,000 mg tablet Take 1 tablet by mouth twice marco (more content not included)... Normal [facility] XR TOE 3V AP/LAT/OBL LTon XR TOE 3V AP/LAT/OBL LT * * *Final Repor t* * * DATE OF EXAM: Nov 13 2024 9:14AM [id number] - XR TOE 3V AP/LAT/OBL LT / PROCEDURE REASON: Ulcer of toe of left foot, with fat layer exposed (HCC) * * * * Physician Interpretation * * * * EXAMINATION: XR TOE 3V AP/LAT/OBL LT TECHNOLOGIST PROVIDED HISTORY: PT STATES LEFT FOOT 2ND TOE ULCER ATTENTION 2ND TOE ONLY BEST POSSIBLE FILMS CLINICAL INFORMATION: 59 years old Male with Ulcer of toe of left foot, with fat layer exposed. Patient has left 2nd toe ulceration. Evaluate for any change compared to October 28 xrays to suggest bone infection. TECHNIQUE: XR TOE 3V AP/LAT/OBL LT Laterality: LEFT Number of different views (projections): 3 COMPARISON: Radiographs 10/28/2024 , 07/12/2023 RESULT: Unchanged mild blunting of the tuft of the 2nd distal phalanx. No definite bony destructive changes to suggest acute osteomyelitis. Again there is a fracture deformity of the 2nd proximal phalanx with adjacent bone fragment. Hammertoe deformity of the 2nd toe. Partially visualized distal 1st metatarsal osteotomy, plate and screw fixation of the proximal 1st metatarsal and single surgical staple in the 1st proximal phalanx. No acute fracture. Mild degenerative change 1st MTP joint. Remainder of the visualized joint spaces are maintained. IMPRESSION: No definite radiographic evidence of acute osteomyelitis. If there is ongoing clinical concern for osteomyelitis, consider further evaluation with MRI. Tour Director: PSCB Transcribe Date/Time: Nov 13 2024 9:44A Dictated by : RAFITA PITTS DO This examination was interpreted and the report reviewed and electronically signed by: RAFITA PITTS DO on Nov 13 2024 9:53AM EST [id number] Normal [facility] XR Toes - left 3 Viewson IMPRESSION: No definite radiographic evidence of acute osteomyelitis. If there is ongoing clinical concern for osteomyelitis, consider further evaluation with MRI. Tour Director: PSCB Transcribe Date/Time: Nov 13 2024 9:44A Dictated by : RAFITA PITTS DO This examination was interpreted and the report reviewed and electronically signed by: RAFITA PITTS DO on Nov 13 2024 9:53AM [facility] DIVISION OF RADIOLOGY * * *Final Report* * * DATE OF EXAM: Nov 13 2024 9:14AM [id number] - XR TOE 3V AP/LAT/OBL LT / PROCEDURE REASON: Ulcer of toe of left foot, with fat layer exposed (HCC) * * * * Physician Interpretation * * * * EXAMINATION: XR TOE 3V AP/LAT/OBL LT TECHNOLOGIST PROVIDED HISTORY: PT STATES LEFT FOOT 2ND TOE ULCER ATTENTION 2ND TOE ONLY BEST POSSIBLE FILMS CLINICAL INFORMATION: 59 years old Male with Ulcer of toe of left foot, with fat layer exposed. Patient has left 2nd toe ulceration. Evaluate for any change compared to October 28 xrays to suggest bone infection. TECHNIQUE: XR TOE 3V AP/LAT/OBL LT Laterality: LEFT Number of different views (projections): 3 COMPARISON: Radiographs 10/28/2024 , 07/12/2023 RESULT: Unchanged mild blunting of the tuft of the 2nd distal phalanx. No definite bony destructive changes to suggest acute osteomyelitis. Again there is a fracture deformity of the 2nd proximal phalanx with adjacent bone fragment. Hammertoe deformity of the 2nd toe. Partially visualized distal 1st metatarsal osteotomy, plate and screw fixation of the proximal 1st metatarsal and single surgical staple in the 1st proximal phalanx. No acute fracture. Mild degenerative change 1st MTP joint. Remainder of the visualized joint spaces are maintained. DIVISION OF RADIOLOGY Provider, [facility] - 11/13/2024 * * *Final Report* * * DATE OF EXAM: Nov 13 2024 9:14AM [id number] - XR TOE 3V AP/LAT/OBL LT / PROCEDURE REASON: Ulcer of toe of left foot, with fat layer exposed (HCC) * * * * Physician Interpretation * * * * EXAMINATION: XR TOE 3V AP/LAT/OBL LT TECHNOLOGIST PROVIDED HISTORY: PT STATES LEFT FOOT 2ND TOE ULCER ATTENTION 2ND TOE ONLY BEST POSSIBLE FILMS CLINICAL INFORMATION: 59 years old Male with Ulcer of toe of left foot, with fat layer exposed. Patient has left 2nd toe ulceration. Evaluate for any change compared to October 28 xrays to suggest bone infection. TECHNIQUE: XR TOE 3V AP/LAT/OBL LT Laterality: LEFT Number of different views (projections): 3 COMPARISON: Radiographs 10/28/2024 , 07/12/2023 RESULT: Unchanged mild blunting of the tuft of the 2nd distal phalanx. No definite bony destructive changes to suggest acute osteomyelitis. Again there is a fracture deformity of the 2nd proximal phalanx with adjacent bone fragment. Hammertoe deformity of the 2nd toe. Partially visualized distal 1st metatarsal osteotomy, plate and screw fixation of the proximal 1st metatarsal and single surgical staple in the 1st proximal phalanx. No acute fracture. Mild degenerative change 1st MTP joint. Remainder of the visualized joint spaces are maintained. IMPRESSION IMPRESSION: No definite radiographic evidence of acute osteomyelitis. If there is ongoing clinical concern for osteomyelitis, consider further evaluation with MRI. Tour Director: SHAHLA Transcribe Date/Time: Nov 13 2024 9:44A Dictated by : RAFITA PITTS DO This examination was interpreted and the report reviewed and electronically signed by: RAFITA PITTS DO on Nov 13 2024 9:53AM EST [facility] Radiology Study observation (narrative) [facility] XR Toes - left 3 ViewsOrdere d By: Gloria Provider on 11-13-2024 [facility] Gastroenterology Visit Repor ton 11-11-2024 Gastroenterology Visit Report [facility] [address] 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 Accompanied by: Self Is patient in pain?: No Allergies Penicillins Allergy (Verified 11/11/24 15:41) PT UNSURE OF REACTION Medications ???Medication ???Instructions ???Recorded ???Confirmed ???Type bupropion HCl 150 mg tablet,12 hr 150 mg PO BID antidepressant 08/0211/11/24 History sustained-release metformin 1,000 mg tablet 1,000 mg PO BID dm 08/14/21 History lisinopril 2.5 mg tablet 2.5 mg PO DAILY blood pressure 02/0311/11/24 History insulin glargine 100 unit/mL (3 30 unit subcut BID diabetes 11/11/24 History mL) subcutaneous pen (Lantus Solostar U-100 Insulin) diltiazem HCl 120 mg 120 mg PO DAILY heart rate #90 cap s 09/24/23 11/11/24 Rx capsule,extended release 24 hr potassium chloride 10 mEq 10 meq PO DAILY supplement #90 tab s 07/18/24 11/11/24 Rx tablet,extended release metoprolol tartrate 75 mg tablet 75 mg PO Q12H blood pressure 08/0511/11/24 History loperamide 2 mg capsule 2 mg PO TID PRN loose stool #30 11/11/24 Rx caps psyllium husk 3 gram oral powder 1 packet PO BID #54 ea 08/12/24 Rx packet (Daily Fiber (psyllium-aspartame)) furosemide 40 mg tablet 80 mg (2 x 40 mg) PO DAILY 5 11/11/24 Rx diuretic #180 tabs apixaban 5 mg tablet 5 mg PO BID #180 tabs 10/01/2406/07 Rx budesonide 9 mg capsule,extended 9 mg PO DAILY #30 caps 10/13/24 Rx release colestipol 1 gram tablet 2 g (2 x 1 gram) PO BID 90 days 11/11/24 Rx #360 tabs Nurse's Note: Diarrhea started again yesterday. The first since sometime around August 17. 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 Essential 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 Atrial fibrillation with rapid ventricular response MARIELLA (obstructive sleep apnea) Diabetes COPD (chronic obstructive pulmonary disease) Surgical History History of cardiac catheterization Status post cryoablation of arrhythmia (03/01/22) History of cardioversion (10/27/21) Bunion H/O hernia repair Family History Other COPD (chronic obstructive pulmonary disease) Colon cancer Heart disease Lung cancer Testicular cancer Social History Smoking Status: Former smoker alcohol intake: never substance use type: does not use caffeine: Yes Type: coffee Number of servings: 1 HPI HPI Chief Complaint: follow-up Details: PEDRO KARIMI, is a 59 M who presents to the office today for OV 08/17/2024 58-year-old male presents for follow-up post admission. He presented to the emergency department for evaluation of nausea, vomiting and nonbloody diarrhea. CT completed on admission was concerning for areas of SB bleeding. Although, given stable VS, absence of anemia and no s/s of bleeding it was felt an active bleed was unlikely and findings were possibly secondary to infectious etiology. Labs did reveal a supratherapeutic INR of 5.3 and he was admitted. EGD and Colonoscopy were completed during admission. EGD revealed Grade B esophagitis, acute gastritis and erosive duodenitis. Colonoscopy revealed two polyps, congested mucosa in the entire colon and mild TI inflammation. Unfortunately, biopsy results are not available this time. He reports 3 days prior to presenting to ED he had sudden onset non-bloody diarrhea, N/V and thought he had food poisoning. He presented to ED with concerns for dehydration and dark (not black) stools. He was discharged on esonide 9mg QD, Metamucil 2 tsp. QD, Colestipol 2g QD (more content not included)... Normal [facility] Bacteria Wnd Culton 10-29-19 25 Bacteria identified Cx Nom (Wound) ORGANISM ID: 1 Many skin mello ORGANISM ID: 2 Few Ochrobactrum anthropi No susceptibility testing done. Call lab within 72 hours to initiate work-up if clinically indicated. GRAM STAIN: Many Gram positive cocci Few Gram negative bacilli No Polymorphonuclear Leukocytes Abnormal [facility] Comment on above: Performed By: #### [id number] ####[facility] LABCLIA [id number] [address] CNOVon 10-28-2024 CNOV Office Visit (PODIWS ) PEDRO KARIMI ([id number]) 1965 M Date Time Provider Department 10/28/24 3:45 PM LUCAS LUTZ PODRERE During your visit today, we recorded the following information about you: Christiane Roe LPN 11/01/2024 7:43 AM Signed AMB ROOMING INTAKE FLOWSHEET DATA Patient presents with: Left Foot - Established Patient, Follow Up, Diabetic Foot Care Right Foot - Established Patient, Follow Up, Numbness, Diabetic Foot Care Right 3rd Toe - Wound Check, Numbness, Established Patient Patient states last week he ripped off right 3rd toenail 1 week ago. SIOBHAN Eller Matthew 11/01/2024 7:43 AM Signed Last saw pcp: not in chart Subjective: Patient presents to clinic c/o painful toenails. They state that the nails are especially painful with shoe gear and pressure. Patient admits to being diabetic. Has no other complaints. No other pedal complaints at this time. Patient states no change in medications or medical history since last visit. Objective: Patient presents to clinic ambulating in [facility] Vasc: DP and PT pulses are palpable bilateral. CFT is less than 5 seconds bilateral. Skin temperature is warm to cool proximal to distal bilateral. There is moderate edema or varicosities noted. Edema is noted in left 2nd toe Neuro: Protective sensation is absent to the foot and toes when tested with the 5.07 SWM bilateral. Vibratory sensation is absent at the hallux IPJ bilateral. The hallux is downgoing bilateral. Derm: Nails 1-5 b/l are painful, discolored-yellow, thick, crumbly, dystrophic and with subungal debris. Skin is of normal turgor, texture and hair growth is decreased bilateral. Ulceration #1 Location: left 2nd toe medial aspect Measurement: 5 mm x 5 mm Base: granular tissue with periwound hyperkeratosis Mild serous drainage. No exposed tendon or bone. Ortho: Muscle strength is 5/5 for all pedal groups tested. Ankle joint DF is decreased with the knee extended with no pain or crepitus noted. 1st MPJ ROM is decreased bilateral. Swelling is noted of left 2nd toe. Hallux valgus deformity (recurrent) of left lower extremity. Assessment: (B35.1) Onychomycosis (primary encounter diagnosis) (M79.675) Pain in toe of left foot (M79.674) Pain in toe of right foot (E11.42) Diabetic polyneuropathy associated with type 2 diabetes mellitus (HCC) (M20.12) Acquired hallux valgus of left foot (L97.502) Skin ulcer of toe with fat layer exposed, unspecified laterality (HCC) Plan: Patient was seen and evaluated. Nails 1-5 bilateral were debrided in length and thickness. Patient was instructed on the continued importance of diabetic foot care along with proper diet and keeping their blood sugar under control to prevent complications. I stressed the importance of avoiding barefoot walking, wearing good shoes and inspection of feet. I discussed the new ulceration of left 2nd toe. There is ulceration of left 2nd toe with serous drainage. I am going to culture the 2nd toe and place him on antibiotic. I debrided the ulceration today with tissue nippers. Debridement was performed thru subcutaneous tissu with tissue nippers. Total debridement was 5 mm x 5 mm x 2 mm. Will treat with aquacel and guaze to the 2nd toe. Will provide him with bunion splint to help eliminate stress to the 2nd toe. Will obtain xrays. I discussed this ulceration as the result of recurrent bunion. Discussed options for the bunion not limited to correction of bunion vs 2nd toe amputation. I will review xrays. Will discuss options in 1 week after reviewing xrays and culture Lucas Lutz DPM Lucas Lutz 10/28/2024 4:32 PM Addendum You have a wound of left 2nd toe, inside aspect Cleanse this wound daily with soap and water. Apply aquacel to the wound. Secure with guaze wrap Use a bunion splint to help straighten the toe. This will not straighten the toe chcf, only while wearing, it will help to reduce pressure on the 2nd toe Obtain xrays today of foot and toe. If the toe xray confirms bone infection, then will need to discuss options. Antibiotics vs amputation. You have a bunion of left foot that may likely continue to contribute to rubbing. Once this wound heals, will need to either use splint, or consider surgery on the bunion or consider toe amputation of the 2nd toe. Wear a wider shoe to avoid rubbing. Could consider surgical shoe to help reduce pressure. Diabetes Foot Care Instructions When you have [...] mild soaps Use warm water Pat your sk (more content not included)... Normal [facility] XR FOOT 3V AP/LAT/OBL LTon 0 10-28-2024 XR FOOT 3V AP/LAT/OBL LT * * *Final Repo rt* * * DATE OF EXAM: Oct 28 2024 5:01PM [id number] - XR FOOT 3V AP/LAT/OBL LT / PROCEDURE REASON: multiple diagnoses * * * * Physician Interpretation * * * * HISTORY: 59-YEAR-OLD MALE WITH Acquired hallux valgus of left foot Skin ulcer of toe with fat layer exposed, unspecified laterality (HCC) . inf. in bet. the great and 2nd toe for an unknown time and hammertoes no inj TECHNIQUE: XR FOOT 3V AP/LAT/OBL LT, XR TOE 3V AP/LAT/OBL LT Laterality: LEFT Number of different views (projections): 3 COMPARISON: 07/12/2023 and 2011 RESULT: Left foot: Status post bunionectomy with proximal metatarsal osteotomy and screw and plate fixation, resection medial eminence of the first metatarsal, osteotomy of the proximal phalanx with stable fixation that is. The osteotomies have healed. Hammertoe deformity of the third digit. Calcaneal enthesophyte insertion of the Achilles tendon. Second digit of the left foot: Periosteal reaction of the second metatarsal diaphysis on the lateral side of the proximal phalanx. Cyst and a small dense bony fragment at the lateral aspect of the articular surface of the middle phalanx at the DIP joint with a defect in the lateral condyle consistent with a remote avulsion injury. The distal half cortex is irregular and loss part of is cortication and volume compared to the previous examination 2012 however no focal lytic lesion is identified. No periosteal reaction. There is a vague radiolucency in the medial distal second toe presumably and ulceration. Radiolucency does not extend to the bone surface. IMPRESSION: THE DISTAL PHALANX OF THE SECOND DIGIT IS SLIGHTLY BLUNTED AND IRREGULAR COMPARED TO THE PREVIOUS EXAM OF 2012 HOWEVER THERE IS ALSO INDICATION THAT THERE IS A FRACTURE OF THE MIDDLE PHALANX, SCLEROSIS AND THICK PERIOSTEAL NEW BONE AT THE PROXIMAL PHALANX OF THE SECOND DIGIT AND THESE FINDING MAY BE POSTTRAUMATIC. THERE IS NO PERIOSTEAL REACTION OR FOCAL LYTIC LESION TO SUPPORT OSTEOMYELITIS. THERE IS AN ULCERATION AT THE MEDIAL DISTAL TOE. STATUS POST BUNIONECTOMY, THE FOOT IS OTHERWISE UNCHANGED COMPARED TO PREVIOUS EXAM. Tour Director: PSCMarla Transcribe Date/Time: Nov 03 2024 6:42P Dictated by : LINDA MENDEZ MD This examination was interpreted and the report reviewed and electronically signed by: LINDA MENDEZ MD on Nov 03 2024 6:55PM EST [id number] Normal [facility] XR TOE 3V AP/LAT/OBL LTon XR TOE 3V AP/LAT/OBL LT * * *Final Repor t* * * DATE OF EXAM: Oct 28 2024 5:01PM [id number] - XR TOE 3V AP/LAT/OBL LT / PROCEDURE REASON: multiple diagnoses * * * * Physician Interpretation * * * * HISTORY: 59-YEAR-OLD MALE WITH Acquired hallux valgus of left foot Skin ulcer of toe with fat layer exposed, unspecified laterality (HCC) . inf. in bet. the great and 2nd toe for an unknown time and hammertoes no inj TECHNIQUE: XR FOOT 3V AP/LAT/OBL LT, XR TOE 3V AP/LAT/OBL LT Laterality: LEFT Number of different views (projections): 3 COMPARISON: 07/12/2023 and 2011 RESULT: Left foot: Status post bunionectomy with proximal metatarsal osteotomy and screw and plate fixation, resection medial eminence of the first metatarsal, osteotomy of the proximal phalanx with stable fixation that is. The osteotomies have healed. Hammertoe deformity of the third digit. Calcaneal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 corpuscular hemoglobin (MCH) determinationOrdered By: Nella Hopkins on 2024 MCH (RBC) [Entitic mass] 27.7 pg 27.0-32.0 [facility] Mean corpuscular hemoglobin concentration (MCHC) determinationOrdered By: Nella Hopkins on 2024 MCHC (RBC) [Mass/Vol] 32.2 g/dL 32-36 [facility] Mean platelet volume determi nationOrdered By: Nella Hopkins on 2024 Platelet mean volume (Bld) [Entitic vol] 11.0 fL 6.2-12.0 [facility] Microalb:Creat Ratio,Random URon 2024 MALB:CREAT UNABLE TO CALCULATE Normal [facility] Comment on above: Performed By: #### L 100.1300 #### [facility] [address] [place], [place], [address] MICROALBUMIN,UR < 12.0 Normal NO RANGE EST. [facility] Comment on above: Performed By: #### L 100.1300 #### [facility] [address] [place], [place], [address] Microalbumin/creat ratio urO rdered By: Margot Mai on 2024 Urine Microalbumin/Creatinine Ratio UNABLE TO CALCULATE mg/g CRE [facility] Urine microalbumin/creatinine ratio measurement UNABLE TO CALCULATE mg/g CRE [facility] Monocyte percentageOrdered B y: Nella Hopkins on 2024 Monocytes/100 WBC (Bld) 8.6 % 0-10 [facility] Neutrophil percentageOrdered By: Nella Hopkins on 2024 Neutrophils/100 WBC (Bld) 63.7 % 47-70 [facility] Nucleated red blood cell per centageOrdered By: Nella Hopkins on 2024 Nucleated RBC/100 WBC (Bld) [Ratio] 0 % 0-5 [facility] Platelet countOrdered By: Brannon Hopkins on 2024 Platelets (Bld) [#/Vol] 211 10*3/uL 150-450 [facility] Potassium (Unsp spec) [Mass/ Vol]Ordered By: Buster Harvey on 2024 Potassium [Moles/Vol] 3.6 mmol/L 3.3-5.1 [facility] Potassium measurement (mass/ volume)Ordered By: Buster Harvey on 2024 Potassium (Unsp spec) [Mass/Vol] 3.6 mmol/L 3.3-5.1 [facility] RBC Auto (Bld) [#/Vol]Ordere d By: Nella Hopkins on 2024 RBC (Bld) [#/Vol] 4.26 10*6/uL Low 4.6-6.2 [facility] Random urine creatinine brian urement (mass/volume)Ordered By: Margot Mai on 2024 Creatinine Unsp time (U) [Mass/Vol] 159.00 mg/dL 39.00-259. 00 [facility] Screening total cholesterol/ high density lipoprotein (HDL) cholesterol ratioOrdered By: Margot Mai on 2024 Cholesterol.total/Cholester ol in HDL [Mass ratio] 2.38 {ratio} [facility] Serum creatinine measurement (mass/volume)Ordered By: Buster Harvey on 2024 Creatinine [Mass/Vol] 0.79 mg/dL 0.70-1.20 [facility] Serum glucose measurement (m ass/volume)Ordered By: Bustertai Harvey on 2024 Glucose [Mass/Vol] 163 mg/dL High 70-99 [facility] Serum or plasma calcium brian urement (mass/volume)Ordered By: Buster Harvey on 2024 Calcium [Mass/Vol] 8.9 mg/dL 7.6-11.0 [facility] Serum or plasma cholesterol in HDL measurement (mass/volume)Ordered By: Margot Mai on 2024 Cholesterol in HDL [Mass/Vol] 67 mg/dL >40 [facility] Comment on above: National Cholesterol Education Program (NCEP) guidelines:<40 mg/dL: Low HDL-cholesterol (major risk factor for CHD)>= 60 mg/dL: High HDL-cholesterol (negative risk factor for CHD)HDL-cholesterol is affected by a number of factors, e.g. smoking, exercise, hormones, sex and age. Serum or plasma cholesterol measurement (mass/volume)Ordered By: Margot Mai on 2024 Cholesterol [Mass/Vol] 159 mg/dL <201 [facility] Comment on above: Cholesterol level, D esirable <200 mg/dLBorderline high cholesterol 200-239 mg/dLHigh cholesterol >=240 mg/dLRecommendations of the NCEP Adult Treatment Panel for the following risk-cutoff thresholds for the [place] population. Serum or plasma urea nitroge n measurement (mass/volume)Ordered By: Buster Harvey on 2024 Urea nitrogen [Mass/Vol] 21 mg/dL High 4- [facility] Sodium levelOrdered By: Raffy Harvey on 2024 Sodium [Moles/Vol] 138 mmol/L 133-145 [facility] Triglycerides measurementOrd ered By: Margot Mai on 2024 Triglyceride [Mass/Vol] 105 mg/dL <199 [facility] Comment on above: The drugs N-Acetylcy steine and Metamizole may falsely depress this assay. Normal range: <150 mg/dLBorderline High: 150-199 mg/dLHigh: 200-499 mg/dLVery High: >500 mg/dL Urine albumin measurement wi th detection limit of 20 mg/L or less (mass/volume)Ordered By: Margot Mai on 2024 Albumin DL <= 20 mg/L (U) [Mass/Vol] < 12.0 mg/L NO RANGE EST. [facility] White blood cell (WBC) count Ordered By: Nella Hopkins on 2024 WBC (Bld) [#/Vol] 6.9 10*3/uL 4.4-11.0 [facility] CBC W/Diff, Automatedon - PATH REV N/A Normal [facility] Comment on above: Result Comment: AMENDED REPORT 08/15/24 0837 PATH REV previously reported as: May foll Performed By: #### L 501.2300, L500.2500, L501.5200, L100.0100 #### [facility] [address] [place], [place], [id number] PATH REV N/A Normal [facility] Comment on above: Result Comment: AMENDED REPORT 08/15/24 0835 PATH REV previously reported as: May foll Performed By: #### L 501.080 #### [facility] [address] [place], [place], [phone] Culture, Blood (WB)on 2024 CUB No growth in 5 days. Normal [facility] Comment on above: Performed By: #### L 501.080 #### [facility] [address] [place], [address] Basic Metabolic Profile (BMP )on 08-14-2024 BUN Normal 4-19 [facility] Comment on above: Result Comment: Canc elled via OM: Order cancelled - Patient discharged Performed By: #### L 100.1300 #### [facility] [address] [place], [address] BUN/CRE Normal 10-20 [facility] Comment on above: Result Comment: Canc elled via OM: Order cancelled - Patient discharged Performed By: #### L 100.1300 #### [facility] [address] [place], [address] Calcium Normal 7.6-11.0 [facility] Comment on above: Result Comment: Canc elled via OM: Order cancelled - Patient discharged Performed By: #### L 100.1300 #### [facility] [address] [place], [address] CL Normal 98-108 [facility] Comment on above: Result Comment: Canc elled via OM: Order cancelled - Patient discharged Performed By: #### L 100.1300 #### [facility] [address] [place], [address] CO2 Normal 21.0-32.0 [facility] Comment on above: Result Comment: Canc elled via OM: Order cancelled - Patient discharged Performed By: #### L 100.1300 #### [facility] [address] [place], [address] CREAT,SERUM Normal 0.70-1.20 [facility] Comment on above: Result Comment: Canc elled via OM: Order cancelled - Patient discharged Performed By: #### L 100.1300 #### [facility] [address] [place], [address] eGFR Normal >60 [facility] Comment on above: Result Comment: Canc elled via OM: Order cancelled - Patient discharged Performed By: #### L 100.1300 #### [facility] [address] [place], [address] GAP Normal 5-15 [facility] Comment on above: Result Comment: Canc elled via OM: Order cancelled - Patient discharged Performed By: #### L 100.1300 #### [facility] [address] [place], [address] GLU Normal 70-99 [facility] Comment on above: Result Comment: Canc elled via OM: Order cancelled - Patient discharged Performed By: #### L 100.1300 #### [facility] [address] [place], [address] Potassium Normal 3.3-5.1 [facility] Comment on above: Result Comment: Canc elled via OM: Order cancelled - Patient discharged Performed By: #### L 100.1300 #### [facility] [address] [place], [address] Basic Metabolic Profile (BMP) Normal 133-145 [facility] Comment on above: Result Comment: Canc elled via OM: Order cancelled - Patient discharged Performed By: #### L 100.1300 #### [facility] [address] [place], [address] CBC W/Diff, Automatedon 04-0 Absolute Neut Normal 2.0-7.7 [facility] Comment on above: Result Comment: Canc elled via OM: Order cancelled - Patient discharged Performed By: #### L 501.2300, L500.2500, L501.5200, L100.0100 #### [facility] [address] [place], [address] HCT Normal 40-54 [facility] Comment on above: Result Comment: Canc elled via OM: Order cancelled - Patient discharged Performed By: #### L 501.2300, L500.2500, L501.5200, L100.0100 #### [facility] [address] [place], [address] HGB Normal 13.0-16.5 [facility] Comment on above: Result Comment: Canc elled via OM: Order cancelled - Patient discharged Performed By: #### L 501.2300, L500.2500, L501.5200, L100.0100 #### [facility] [address] [place], [address] MCH Normal 27.0-32.0 [facility] Comment on above: Result Comment: Canc elled via OM: Order cancelled - Patient discharged Performed By: #### L 501.2300, L500.2500, L501.5200, L100.0100 #### [facility] [address] [place], [address] MCHC Normal 32-36 [facility] Comment on above: Result Comment: Canc elled via OM: Order cancelled - Patient discharged Performed By: #### L 501.2300, L500.2500, L501.5200, L100.0100 #### [facility] [address] [place], [address] MCV Normal 80-94 [facility] Comment on above: Result Comment: Canc elled via OM: Order cancelled - Patient discharged Performed By: #### L 501.2300, L500.2500, L501.5200, L100.0100 #### [facility] [address] [place], [address] NEUT% Normal 47-70 [facility] Comment on above: Result Comment: Canc elled via OM: Order cancelled - Patient discharged Performed By: #### L 501.2300, L500.2500, L501.5200, L100.0100 #### [facility] [address] [place], [address] PLT Normal 150-450 [facility] Comment on above: Result Comment: Canc elled via OM: Order cancelled - Patient discharged Performed By: #### L 501.2300, L500.2500, L501.5200, L100.0100 #### [facility] [address] [place], [address] RBC Normal 4.6-6.2 [facility] Comment on above: Result Comment: Canc elled via OM: Order cancelled - Patient discharged Performed By: #### L 501.2300, L500.2500, L501.5200, L100.0100 #### [facility] [address] [place], [address] RDW CV Normal 11.6-14.6 [facility] Comment on above: Result Comment: Canc elled via OM: Order cancelled - Patient discharged Performed By: #### L 501.2300, L500.2500, L501.5200, L100.0100 #### [facility] [address] [place], [address] RDW SD Normal 35.1-43.9 [facility] Comment on above: Result Comment: Canc elled via OM: Order cancelled - Patient discharged Performed By: #### L 501.2300, L500.2500, L501.5200, L100.0100 #### [facility] [address] [place], [address] WBC Normal 4.4-11.0 [facility] Comment on above: Result Comment: Canc elled via OM: Order cancelled - Patient discharged Performed By: #### L 501.2300, L500.2500, L501.5200, L100.0100 #### [facility] [address] [place], [address] Gastroenterology Visit Repor ton 08-14-2024 Gastroenterology Visit Report [facility] [address] [place] [address] OFFICE VISIT Date of Service: 08/14/24 MR#: [id number] Acct: [id number] Name: PEDRO KARIMI Rep #: [id number] : 1965 Provider: SOLE hart Age/Sex: 58/M Location: [facility] Status: Signed Intake Vital Signs 08/11/24 14:51 08/12/24 15:06 08/14/24 09:08 Height 6 ft 2 in 6 ft 2 in 6 ft 2 in Weight: 312 lb 2 oz BMI 40.0 BP 115/75 Respiration 18 Pulse 68 Pulse Oximetry (%) 97 Oxygen Delivery Method room air Intake Visit Reasons: Hospital FU Chief Complaint: c-scope [employer] Required: No Is patient in pain?: No Allergies Penicillins Allergy (Verified 08/14/24 09:03) PT UNSURE OF REACTION Medications ???Medication ???Instructions ???Recorded ???Confirmed ???Type bupropion HCl 150 mg tablet,12 hr 150 mg PO BID antidepressant 08/0208/14/24 History sustained-release metformin 1,000 mg tablet 1,000 mg PO BID dm 08/14/21 History lisinopril 2.5 mg tablet 2.5 mg PO DAILY blood pressure 02/0308/14/24 History insulin glargine 100 unit/mL (3 30 unit subcut BID diabetes 08/14/24 History mL) subcutaneous pen (Lantus Solostar U-100 Insulin) diltiazem HCl 120 mg 120 mg PO DAILY heart rate #90 cap s 09/24/23 08/14/24 Rx capsule,extended release 24 hr potassium chloride 10 mEq 10 meq PO DAILY supplement #90 tab s 07/18/24 08/14/24 Rx tablet,extended release furosemide 40 mg tablet 80 mg PO DAILY diuretic 08/05/24 0 08/14/24 History metoprolol tartrate 75 mg tablet 75 mg PO Q12H blood pressure 08/0508/14/24 History apixaban 5 mg tablet 5 mg PO BID #180 tabs 08/12/2408/05 Rx budesonide 9 mg capsule,extended 9 mg PO DAILY #30 caps 08/12/24 Rx release ciprofloxacin HCl 500 mg tablet 500 mg PO BID #10 tabs 08/12/24 Rx (Cipro) colestipol 1 gram tablet 2 g (2 x 1 gram) PO 0600,2000 30 0 08/12/24 08/14/24 Rx days #120 tabs loperamide 2 mg capsule 2 mg PO TID PRN loose stool #30 08/14/24 Rx caps metronidazole 500 mg tablet 500 mg PO Q8H 5 days #15 tabs 0406/0708/14/24 Rx potassium chloride 20 mEq 20 meq PO BIDCM 5 days #10 tabs 08/14/24 Rx tablet,extended release(part/cryst) psyllium husk (aspartame) 3 gram 1 packet PO BID #54 ea 08/12/24 Rx oral powder packet (Daily Fiber (psyllium-aspartame)) Nurse's Note: * Stools are soft and getting better PFSH Medical History Atrial fibrillation with rapid ventricular response Cardiology follow-up encounter COPD (chronic obstructive pulmonary disease) CPAP (continuous positive airway pressure) dependence Diabetes Essential 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 Former smoker HFrEF (heart failure with reduced ejection fraction) History of atrial fibrillation History of echocardiogram Hx of colonic polyps 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 MRSA infection Non-ischemic cardiomyopathy MARIELLA (obstructive sleep apnea) Persistent atrial fibrillation Restless legs Sleep apnea Wears glasses Surgical History Bunion H/O hernia repair History of cardiac catheterization History of cardioversion (10/27/21) Status post cryoablation of arrhythmia (03/01/22) Family History Other COPD (chronic obstructive pulmonary disease) Colon cancer Heart disease Lung cancer Testicular cancer Social History Smoking Status: Former smoker alcohol intake: never substance use type: does not use caffeine: Yes Type: coffee Number of servings: 1 HPI HPI Chief Complaint: c-scope Details: PEDRO KARIMI, is a 58 M who presents to the office today for CT 08/05/2024 Limited examination due to contrast bolus timing. There are areas of increased density within the small bowel and large bowel as described above. These may represent areas of active bleeding. Although multiphase CT scan of the abdomen may be helpful. In addition, nuclear medicine biliary scan may be helpful to delineate the exact location of the bleeding. Recommend GI input. Red Alert: Limited examination due to contrast bolus timing. There are areas of increased density within the small bowel and large bowel as described above. These may represent areas of active bleeding. Although multiphase CT scan of the abdomen may be helpful. In addition, nuclear medicine biliary scan may be helpful to delineate the exact location of the bleeding. Recommend GI input. COLON 08/11/2024 - pathology pending - Diverticulosis in the entire examined colo (more content not included)... Normal [facility] Prothrombin Time w/INRon INR Normal [facility] Comment on above: Result Comment: Canc elled via OM: Order cancelled - Patient discharged Performed By: #### L 100.1300 #### [facility] [address] [facility] [address] PROTIME Normal 11.7-14.9 [facility] Comment on above: Result Comment: Canc elled via OM: Order cancelled - Patient discharged Performed By: #### L 100.1300 #### [facility] [address] [place], [address] Basic Metabolic Profile (BMP )on 08-13-2024 BUN Normal 4-19 [facility] Comment on above: Result Comment: Canc elled via OM: Order cancelled - Patient discharged Performed By: #### L 501.080 #### [facility] [address] [place], [address] BUN/CRE Normal 10-20 [facility] Comment on above: Result Comment: Canc elled via OM: Order cancelled - Patient discharged Performed By: #### L 501.080 #### [facility] [address] [place], [address] Calcium Normal 7.6-11.0 [facility] Comment on above: Result Comment: Canc elled via OM: Order cancelled - Patient discharged Performed By: #### L 501.080 #### [facility] [address] [place], [address] CL Normal 98-108 [facility] Comment on above: Result Comment: Canc elled via OM: Order cancelled - Patient discharged Performed By: #### L 501.080 #### [facility] [address] [place], [address] CO2 Normal 21.0-32.0 [facility] Comment on above: Result Comment: Canc elled via OM: Order cancelled - Patient discharged Performed By: #### L 501.080 #### [facility] [address] [place], [address] CREAT,SERUM Normal 0.70-1.20 [facility] Comment on above: Result Comment: Canc elled via OM: Order cancelled - Patient discharged Performed By: #### L 501.080 #### [facility] [address] [place], [address] eGFR Normal >60 [facility] Comment on above: Result Comment: Canc elled via OM: Order cancelled - Patient discharged Performed By: #### L 501.080 #### [facility] [address] [place], [address] GAP Normal 5-15 [facility] Comment on above: Result Comment: Canc elled via OM: Order cancelled - Patient discharged Performed By: #### L 501.080 #### [facility] [address] [place], [address] GLU Normal 70-99 [facility] Comment on above: Result Comment: Canc elled via OM: Order cancelled - Patient discharged Performed By: #### L 501.080 #### [facility] [address] [place], [address] Potassium Normal 3.3-5.1 [facility] Comment on above: Result Comment: Canc elled via OM: Order cancelled - Patient discharged Performed By: #### L 501.080 #### [facility] [address] [place], [address] Basic Metabolic Profile (BMP) Normal 133-145 [facility] Comment on above: Result Comment: Canc elled via OM: Order cancelled - Patient discharged Performed By: #### L 501.080 #### [facility] [address] [place], [address] CBC W/Diff, Automatedon 04-0 -2024 Absolute Neut Normal 2.0-7.7 [facility] Comment on above: Result Comment: Canc elled via OM: Order cancelled - Patient discharged Performed By: #### L 501.080 #### [facility] [address] [place], [address] HCT Normal 40-54 [facility] Comment on above: Result Comment: Canc elled via OM: Order cancelled - Patient discharged Performed By: #### L 501.080 #### [facility] [address] [place], [address] HGB Normal 13.0-16.5 [facility] Comment on above: Result Comment: Canc elled via OM: Order cancelled - Patient discharged Performed By: #### L 501.080 #### [facility] [address] [place], [address] MCH Normal 27.0-32.0 [facility] Comment on above: Result Comment: Canc elled via OM: Order cancelled - Patient discharged Performed By: #### L 501.080 #### [facility] [address] [place], [address] MCHC Normal 32-36 [facility] Comment on above: Result Comment: Canc elled via OM: Order cancelled - Patient discharged Performed By: #### L 501.080 #### [facility] [address] [place], [address] MCV Normal 80-94 [facility] Comment on above: Result Comment: Canc elled via OM: Order cancelled - Patient discharged Performed By: #### L 501.080 #### [facility] [address] [place], [address] NEUT% Normal 47-70 [facility] Comment on above: Result Comment: Canc elled via OM: Order cancelled - Patient discharged Performed By: #### L 501.080 #### [facility] [address] [place], [address] PLT Normal 150-450 [facility] Comment on above: Result Comment: Canc elled via OM: Order cancelled - Patient discharged Performed By: #### L 501.080 #### [facility] [address] [place], [address] RBC Normal 4.6-6.2 [facility] Comment on above: Result Comment: Canc elled via OM: Order cancelled - Patient discharged Performed By: #### L 501.080 #### [facility] [address] [place], [address] RDW CV Normal 11.6-14.6 [facility] Comment on above: Result Comment: Canc elled via OM: Order cancelled - Patient discharged Performed By: #### L 501.080 #### [facility] [address] [place], [address] RDW SD Normal 35.1-43.9 [facility] Comment on above: Result Comment: Canc elled via OM: Order cancelled - Patient discharged Performed By: #### L 501.080 #### [facility] [address] [place], [address] WBC Normal 4.4-11.0 [facility] Comment on above: Result Comment: Canc elled via OM: Order cancelled - Patient discharged Performed By: #### L 501.080 #### [facility] [address] [place], [address] L2100.0000on 08-13-2024 ACCA 33 units Normal 0-90 [facility] Comment on above: Result Comment: Nega tive: <80 Equivocal: 80-90 Positive: >90 Performed By: #### L 100.0100, L500.4050, L501.2450 #### [facility] [address] [place], [address] ALCA 0 units Normal 0-60 [facility] Comment on above: Result Comment: Nega tive:<55 Equivocal: 55-60 Positive: >60 Performed By: #### L 100.0100, L500.4050, L501.2450 #### [facility] [address] [place], [address] AMCA 37 units Normal 0-100 [facility] Comment on above: Result Comment: Nega tive: <90 Equivocal: 90-100 Positive: >100 This test was developed and its performance characteristics determined by [employer]. It has not been cleared or approved by the Food and Drug Administration. The FDA has determined that such clearance or approval is not necessary. Performed By: #### L 100.0100, L500.4050, L501.2450 #### [facility] [address] [place], [address] Atypical pANCA Negative Normal Negative [facility] Comment on above: Performed By: #### L 100.0100, L500.4050, L501.2450 #### [facility] [address] [place], [address] COMMENT Comment Normal . [facility] Comment on above: Result Comment: Lynn maryellen is not suggestive of Inflammatory Bowel Disease Performed at: [address] [id number] [employer] Assistant: Moustapha Tellez MD, Phone: [phone] Performed By: #### L 100.0100, L500.4050, L501.2450 #### [facility] [address] [place], [address] Aldo 17 units Normal 0-50 [facility] Comment on above: Result Comment: Nega tive: <45 Equivocal: 45-50 Positive: >50 Performed By: #### L 100.0100, L500.4050, L501.2450 #### [facility] [address] [place], [address] Prothrombin Time w/INRon INR Normal [facility] Comment on above: Result Comment: Canc elled via OM: Order cancelled - Patient discharged Performed By: #### L 501.080 #### [facility] [address] [place], [address] PROTIME Normal 11.7-14.9 [facility] Comment on above: Result Comment: Canc elled via OM: Order cancelled - Patient discharged Performed By: #### L 501.080 #### [facility] [address] [place], [address] DAISY Comprehensive Panelon ANTI-DNA (DS)AB <1 Normal 0-9 [facility] Comment on above: Result Comment: Nega tive <5 Equivocal 5 - 9 Positive >9 Performed By: #### L 100.0100, L500.4050, L501.2450 #### [facility] [address] [place], [address] ANTISCLERODERM <0.2 Normal 0.0-0.9 [facility] Comment on above: Performed By: #### L 100.0100, L500.4050, L501.2450 #### [facility] [address] [place], [address] Absolute lymphocyte countOrd ered By: Yfn Mccarthy on 08-12-2024 Lymphocytes Auto (Unsp spec) [#/Vol] 2.11 10*3/uL 0.83-4.51 [facility] Absolute neutrophil countOrd ered By: Yfn Mccarthy on 08-12-2024 Neutrophils (Bld) [#/Vol] 6.5 10*3/uL 2.0-7.7 [facility] Anion gap in Serum or Plasma Ordered By: Yfn Mccarthy on 08-12-2024 Anion gap [Moles/Vol] 12 mmol/L 5- [facility] BUN/creatinine ratioOrdered By: Yfn Mccarthy on 08-12-2024 Urea nitrogen/Creatinine [Mass ratio] 17.2 mg/mg - [facility] Basic Metabolic Profile (BMP )on 08-12-2024 BUN/CRE 17.2 RATIO Normal - [facility] Comment on above: Performed By: #### L 501.080 #### [facility] [address] [place], [address] Calcium [Mass/Vol] 7.9 mg/dL Normal 7.6-11.0 [facility] Comment on above: Performed By: #### L 501.080 #### [facility] [address] [place], [address] Chloride [Moles/Vol] 109 mmol/L High 98-108 [facility] Comment on above: Performed By: #### L 501.080 #### [facility] [address] [place], [address] CO2 [Moles/Vol] 16.8 mmol/L Low 21.0-32.0 [facility] Comment on above: Performed By: #### L 501.080 #### [facility] [address] [place], [address] Creatinine [Mass/Vol] 0.78 mg/dL Normal 0.70-1.20 [facility] Comment on above: Performed By: #### L 501.080 #### [facility] [address] [place], [address] ECRCL 151.79 ml/min Normal 50-250 [facility] Comment on above: Performed By: #### L 501.080 #### [facility] [address] [place], [address] GAP 12 Normal 5-15 [facility] Comment on above: Performed By: #### L 501.080 #### [facility] [address] [place], [address] GFR/1.73 sq M.predicted among non-blacks MDRD (S/P/Bld) [Vol rate/Area] 103 mL/min/{1.73_m2} Normal >60 [facility] Comment on above: Result Comment: mL/m in/1.73m2 CKD-EPI Creatinine Equation (2020) Performed By: #### L 501.080 #### [facility] [address] [place], [address] Glucose [Mass/Vol] 189 mg/dL High 70-99 [facility] Comment on above: Performed By: #### L 501.080 #### [facility] [address] [place], [address] Potassium [Moles/Vol] 3.1 mmol/L Low 3.3-5.1 [facility] Comment on above: Performed By: #### L 501.080 #### [facility] [address] [place], [address] Sodium [Moles/Vol] 137 mmol/L Normal 133-145 [facility] Comment on above: Performed By: #### L 501.080 #### [facility] [address] [place], [address] Urea nitrogen [Mass/Vol] 13 mg/dL Normal 4-19 [facility] Comment on above: Performed By: #### L 501.080 #### [facility] [address] [place], [address] Bedside Glucoseon 08-12-2024 FINGERSTICK GLU 155 mg/dL High 74-106 [facility] Comment on above: Result Comment: NYASIA GEMENT OF PATIENT CARE PER NURSING PROTOCOL Performed By: #### L 100.1300 #### [facility] [address] [place], [address] FINGERSTICK GLU 147 mg/dL High 74-106 [facility] Comment on above: Result Comment: NYASIA GEMENT OF PATIENT CARE PER NURSING PROTOCOL Performed By: #### L 501.2300, L500.2500, L501.5200, L100.0100 #### [facility] [address] [place], [address] FINGERSTICK GLU 199 mg/dL High 74-106 [facility] Comment on above: Result Comment: NYASIA GEMENT OF PATIENT CARE PER NURSING PROTOCOL Performed By: #### L 501.2300, L500.2500, L501.5200, L100.0100 #### [facility] [address] [place], [address] Blood band neutrophil count as percentage of total leukocytesOrdered By: Yfn Mccarthy on 08-12-2024 Band form neutrophils/100 WBC (Bld) 4 % 0-5 [facility] Blood basophils/100 leukocyt esOrdered By: Yfn Mccarthy on 08-12-2024 Basophils/100 WBC (Bld) 1 % 0-1 [facility] Blood eosinophils/100 leukoc ytesOrdered By: Yfn Mccarthy on 08-12-2024 Eosinophils/100 WBC (Bld) 13 % High 0-5 [facility] Blood lymphocytes/100 leukoc ytesOrdered By: Yfn Mccarthy on 08-12-2024 Lymphocytes/100 WBC (Bld) 19 % 19-41 [facility] Blood metamyelocytes/100 joan kocytesOrdered By: Yfn Mccarthy on 08-12-2024 Metamyelocytes/100 WBC (Bld) 1 % 0-1 [facility] Blood monocytes/100 leukocyt esOrdered By: Yfn Mccarthy on 08-12-2024 Monocytes/100 WBC (Bld) 8 % 0-10 [facility] Blood segmented neutrophils/ 100 leukocytesOrdered By: Yfn Mccarthy on 08-12-2024 Segmented neutrophils/100 WBC (Bld) 54 % 47-70 [facility] Carbon dioxide, total [Moles /volume] in Central venous bloodOrdered By: Yfn Mccarthy on 08-12-2024 CO2 [Moles/Vol] 16.8 mmol/L Low 21.0-32.0 [facility] Cardiology Visit Reporton Cardiology Visit Report [facility] [address] [place] [address] OFFICE VISIT Date of Service: 08/12/24 MR#: [id number] Acct: [id number] Name: PEDRO KARIMI Rep #: [id number] : 1965 Provider: Dr. Buster Harvey MD Age/Sex: 58/M Location: [facility] Status: Signed HPI HPI History of Present Illness Details: This gentleman was admitted to the hospital last week with bloody diarrhea. He has had colonoscopy done which showed diverticulosis and some inflammation. His INR was noted to be supratherapeutic. Warfarin was therefore withheld. INR done yesterday was 1.8. Per patient, he was told by his nutritional health coach that he could resume his anticoagulation about 7 to 8 days time. Denies any complaints today. No palpitations. No chest pains. Intake Vital Signs 04/17/24 08:59 08/11/24 14:51 08/12/24 15:04 08/12/24 15:06 Height 6 ft 2 in 6 ft 2 in 6 ft 2 in 6 ft 2 in Weight: 309 lb BMI 39.6 BP 99/64 Blood Pressure Location Lt brachial Position Sitting Respiration 18 Pulse 71 Pulse Source NIBP Intake Visit Reasons: 3 M [employer]U [employer] Required: No Accompanied by: Self Is patient in pain?: No Allergies Penicillins Allergy (Verified 08/12/24 15:02) PT UNSURE OF REACTION Medications ???Medication ???Instructions ???Recorded ???Confirmed ???Type bupropion HCl 150 mg tablet,12 hr 150 mg PO BID antidepressant 08/0208/06/24 History sustained-release metformin 1,000 mg tablet 1,000 mg PO BID dm 08/14/21 History lisinopril 2.5 mg tablet 2.5 mg PO DAILY blood pressure 02/0308/12/24 History insulin glargine 100 unit/mL (3 30 unit subcut BID diabetes 08/12/24 History mL) subcutaneous pen (Lantus Solostar U-100 Insulin) diltiazem HCl 120 mg 120 mg PO DAILY heart rate #90 cap s 09/24/23 08/12/24 Rx capsule,extended release 24 hr spironolactone 25 mg tablet See Rx Instructions .Route 4 08/12/24 Rx .COMPLEX diuretic #30 tabs potassium chloride 10 mEq 10 meq PO DAILY supplement #90 tab s 07/18/24 08/12/24 Rx tablet,extended release furosemide 40 mg tablet 80 mg PO DAILY diuretic 08/05/24 0 08/12/24 History metoprolol tartrate 75 mg tablet 75 mg PO Q12H blood pressure 08/0508/12/24 History warfarin 2 mg tablet 2 mg PO WETH blood thinner 5 08/12/24 History Held on 08/12/24. Instructions: Resume on 08/15/24. warfarin 5 mg tablet 10 mg PO DAILY blood thinner 08/0508/12/24 History Held on 08/12/24. Instructions: Resume on 08/15/24. budesonide 9 mg capsule,extended 9 mg PO DAILY #30 caps 08/12/24 Rx release ciprofloxacin HCl 500 mg tablet 500 mg PO BID #10 tabs 08/12/24 Rx (Cipro) colestipol 1 gram tablet 2 g (2 x 1 gram) PO 06,1999 30 0 08/12/24 08/12/24 Rx days #120 tabs loperamide 2 mg capsule 2 mg PO TID PRN loose stool #30 08/12/24 Rx caps metronidazole 500 mg tablet 500 mg PO Q8H 5 days #15 tabs 04/06/0708/12/24 Rx potassium chloride 20 mEq 20 meq PO BIDCM 5 days #10 tabs 08/12/24 Rx tablet,extended release(part/cryst) psyllium husk (aspartame) 3 gram 1 packet PO BID #54 ea 08/12/24 Rx oral powder packet (Daily Fiber (psyllium-aspartame)) Ejection fraction %: 45 Have you fallen in the past year?: No PFSH Medical History Atrial fibrillation with rapid ventricular response Cardiology follow-up encounter COPD (chronic obstructive pulmonary disease) CPAP (continuous positive airway pressure) dependence Diabetes Essential 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 Former smoker HFrEF (heart failure with reduced ejection fraction) History of atrial fibrillation History of echocardiogram Hx of colonic polyps 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 MRSA infection Non-ischemic cardiomyopathy MARIELLA (obstructive sleep apnea) Persistent atrial fibrillation Restless legs Sleep apnea Wears glasses Surgical History Bunion H/O hernia repair History of cardiac catheterization History of cardioversion (10/27/21) Status post cryoablation of arrhythmia (03/01/22) Family History Other COPD (chronic obstructive pulmonary disease) Colon cancer Heart disease Lung cancer Testicular cancer Social History Smoking Status: Former smoker alcohol intake: never substance use type: does not use caffeine: Yes Type: coffee Number of servings: 1 ROS Const Const: Negative for fatigue, weakness, headache(s) or weight gain ENT ENT: Negative for head (more content not included)... Normal [facility] Cells counted Molgen (Bld/Ti ss) [#]Ordered By: Yfn Mccarthy on 08-12-2024 Differential Total Cells Counted 100 MANUAL DIFF [facility] Chloride assayOrdered By: Torsten Mccarthy on 08-12-2024 Chloride [Moles/Vol] 109 mmol/L High 98-108 [facility] Erythrocyte distribution wid th ratioOrdered By: Yfn Mccarthy on 08-12-2024 Erythrocyte distribution width (RBC) [Ratio] 15.0 % High 11.6-14.6 [facility] Erythrocyte distribution wid th standard deviationOrdered By: Yfn Mccarthy on 08-12-2024 Erythrocyte distribution width (RBC) [Entitic vol] 45.1 fL High 35.1-43.9 [facility] Erythrocyte distribution width (RBC) [Ratio] 45.1 fl High 35.1-43.9 [facility] Erythrocyte morphology asses smentOrdered By: Yfn Mccarthy on 08-12-2024 RBC morphology finding Nom (Bld) NORM C+C NORMAL NORM C&C [facility] Estimation of creatinine vince aranceOrdered By: Yfn Mccarthy on 08-12-2024 Estimated Creatinine Clearance Calc 151.79 ml/min 50-250 [facility] GFR/1.73 sq M.predicted reagan g non-blacks MDRD (S/P/Bld) [Vol rate/Area]Ordered By: Yfn Mccarthy on 08-12-2024 Estimated GFR (MDRD) Non-Af Amer 103 >60 [facility] Comment on above: mL/min/1.73m2 CKD-EP I Creatinine Equation (2020) Glomerular filtration rate ( GFR) estimation/1.73 sq m using serum, plasma, or whole bOrdered By: Yfn Mccarthy on 08-12-2024 GFR/1.73 sq M.predicted among non-blacks MDRD (S/P/Bld) [Vol rate/Area] 103 mL/min/{1.73_m2} >60 [facility] Comment on above: mL/min/1.73m2 CKD-EP I Creatinine Equation (2020) Glucose measurement at bedsi deOrdered By: Yfn Mccarthy on 08-12-2024 Bedside Glucose (Misc Panel) 155 mg/dL High 74-106 [facility] Comment on above: MANAGEMENT OF PATIEN T CARE PER NURSING PROTOCOL Glucose [Mass/Vol] 155 mg/dL High 74-106 [facility] Comment on above: MANAGEMENT OF PATIEN T CARE PER NURSING PROTOCOL Hematocrit Auto (Bld) [Volum e fraction]Ordered By: Yfn Mccarthy on 08-12-2024 Hematocrit (Bld) [Volume fraction] 36.7 % Low 40-54 [facility] Hemoglobin measurementOrdere d By: Yfn Mccarthy on 08-12-2024 Hemoglobin (Bld) [Mass/Vol] 12.4 g/dL Low 13.0-16. 5 [facility] International normalized rat io (INR) calculationOrdered By: Yfn Mccarthy on 08-12-2024 INR Coag (Bld) [Relative time] 1.8 {INR} [facility] Lymphocytes Auto (Unsp spec) [#/Vol]Ordered By: Yfn Mccarthy on 08-12-2024 Lymphocytes (Bld) [#/Vol] 2.11 10*3/uL 0.83-4.5 1 [facility] MCV (mean corpuscular volume ) determinationOrdered By: Yfn Mccarthy on 08-12-2024 MCV (RBC) [Entitic vol] 83.0 fL 80-94 [facility] Magnesiumon 08-12-2024 Magnesium [Mass/Vol] 1.6 mg/dL Normal 1.5-2.2 [facility] Comment on above: Performed By: #### L 501.080 #### [facility] [address] [place] [address], [address] Magnesium (Unsp spec) [Mass/ Vol]Ordered By: Yfn Mccarthy on 08-12-2024 Magnesium [Mass/Vol] 1.6 mg/dL 1.5-2.2 [facility] Magnesium measurement (mass/ volume)Ordered By: Yfn Mccarthy on 08-12-2024 Magnesium (Unsp spec) [Mass/Vol] 1.6 mg/dL 1.5-2.2 [facility] Mean corpuscular hemoglobin (MCH) determinationOrdered By: Yfn Mccarthy on 08-12-2024 MCH (RBC) [Entitic mass] 28.1 pg 27.0-32.0 [facility] Mean corpuscular hemoglobin concentration (MCHC) determinationOrdered By: Yfn Mccarthy on 08-12-2024 MCHC (RBC) [Mass/Vol] 33.8 g/dL 32-36 [facility] Mean platelet volume determi nationOrdered By: Yfn Mccarthy on 08-12-2024 Platelet mean volume (Bld) [Entitic vol] 11.0 fL 6.2-12.0 [facility] Neutrophil percentageOrdered By: Yfn Mccarthy on 08-12-2024 Neutrophils (%) (Auto) Not Reportable [facility] Pathologist review Julio (Unsp spec) [Interp]Ordered By: Yfn Mccarthy on 08-12-2024 Differential Pathologist's Review Jacqui marte [facility] Differential Pathologist's Review N/A [facility] Comment on above: Previous reported re sult: Jacqui marte Edited by: TPHILLIPS on 08/15/24:0835 AMENDED REPORT 08/15/24 0835 PATH REV previously reported as: Jacqui marte Phosphoruson 08-12-2024 Phosphate [Mass/Vol] 3.0 mg/dL Normal 2.7-4.5 [facility] Comment on above: Performed By: #### L 501.080 #### [facility] [address] [place] [address], [phone] Platelet countOrdered By: Torsten Mccarthy on 08-12-2024 Platelets (Bld) [#/Vol] 162 10*3/uL 150-450 [facility] Platelet estimateOrdered By: Yfn Mccarthy on 08-12-2024 Platelets LM Ql (Bld) ADEQUATE ADEQ [facility] Platelets LM Ql (Bld)Ordered By: Yfn Mccarthy on 08-12-2024 Platelet Estimate ADEQUATE [facility]Q [facility] Potassium (Unsp spec) [Mass/ Vol]Ordered By: Yfn Mccarthy on 08-12-2024 Potassium [Moles/Vol] 3.1 mmol/L Low 3.3-5.1 [facility] Potassium measurement (mass/ volume)Ordered By: Yfn Mccarthy on 08-12-2024 Potassium (Unsp spec) [Mass/Vol] 3.1 mmol/L Low 3.3-5.1 [facility] Prothrombin Time w/INRon INR Coag (PPP) [Relative time] 1.8 {INR} Normal [facility] Comment on above: Performed By: #### L 100.0100, L500.4050, L501.2450 #### [facility] [address] [place], [address] PT Coag (PPP) [Time] 21.1 s High 11.7-14.9 [facility] Comment on above: Performed By: #### L 100.0100, L500.4050, L501.2450 #### [facility] [address] [place], [address] Prothrombin timeOrdered By: Yfn Mccarthy on 08-12-2024 PT Coag (PPP) [Time] 21.1 s High 11.7-14.9 [facility] RBC Auto (Bld) [#/Vol]Ordere d By: Yfn Mccarthy on 08-12-2024 RBC (Bld) [#/Vol] 4.42 10*6/uL Low 4.6-6.2 [facility] RBC morphology finding Nom ( Bld)Ordered By: Yfn Mccarthy on 08-12-2024 Red Blood Cell Morphology NORM C+C NORMAL NORM C&C [facility] Review by pathologistOrdered By: Yfn Mccarthy on 08-12-2024 Pathologist review Julio (Unsp spec) [Interp] N/A [facility] Comment on above: Previous reported re sult: Jacqui marte Edited by: TPHPATRICIA on 08/15/24:0835 AMENDED REPORT 08/15/24 0835 PATH REV previously reported as: Jacqui marte Segmented neutrophils/100 WB C (Bld)Ordered By: Yfn Mccarthy on 08-12-2024 Neutrophils/100 WBC (Bld) 54 % 47-70 [facility] Serum creatinine measurement (mass/volume)Ordered By: Yfn Mccarthy on 08-12-2024 Creatinine [Mass/Vol] 0.78 mg/dL 0.70-1.20 [facility] Serum glucose measurement (m ass/volume)Ordered By: Yfn Mccarthy on 08-12-2024 Glucose [Mass/Vol] 189 mg/dL High 70-99 [facility] Serum or plasma calcium brian urement (mass/volume)Ordered By: Yfn Mccarthy on 08-12-2024 Calcium [Mass/Vol] 7.9 mg/dL 7.6-11.0 [facility] Serum or plasma urea nitroge n measurement (mass/volume)Ordered By: Yfn Mccarthy on 08-12-2024 Urea nitrogen [Mass/Vol] 13 mg/dL 4-19 [facility] Serum phosphorus measurement Ordered By: Yfn Mccarthy on 08-12-2024 Phosphorus Level 3.0 mg/dL 2.7-4.5 [facility] Sodium levelOrdered By: Asa Mccarthy on 08-12-2024 Sodium [Moles/Vol] 137 mmol/L 133-145 [facility] Total cell countOrdered By: Yfn Mccarthy on 08-12-2024 Cells counted Molgen (Bld/Tiss) [#] 100 MANUAL DIFF [facility] White blood cell (WBC) count Ordered By: Yfn Mccarthy on 08-12-2024 WBC (Bld) [#/Vol] 11.1 10*3/uL High 4.4-11.0 [facility] IgG abOrdered By: Barbara seo Friend on 08-11-2024 Saccharomyces cerevisiae (Aldo)IgG 17 units 0-50 [facility] Comment on above: Negative: <45 Equivo yobany: 45-50 Positive: >50 Albumin Elph [Mass/Vol]Order ed By: Bipin Friend on 08-11-2024 Albumin [Mass/Vol] 2.3 g/dL Low 2.9-4.4 [facility] Bedside Glucoseon 08-11-2024 FINGERSTICK GLU 210 mg/dL High 74-106 [facility] Comment on above: Result Comment: NYASIA SIMON OF PATIENT CARE PER NURSING PROTOCOL Performed By: #### L 100.0100, L500.4050, L501.2450 #### [facility] [address] [place], [address] FINGERSTICK GLU 170 mg/dL High 74-106 [facility] Comment on above: Result Comment: NYASIA GEMENT OF PATIENT CARE PER NURSING PROTOCOL Performed By: #### L 501.2300, L500.2500, L501.5200, L100.0100 #### [facility] [address] [place], [address] FINGERSTICK GLU 87 mg/dL Normal 74-106 [facility] Comment on above: Result Comment: NYASIA GEMENT OF PATIENT CARE PER NURSING PROTOCOL Performed By: #### L 501.2300, L500.2500, L501.5200, L100.0100 #### [facility] [address] [place], [address] Bilirubin, totalOrdered By: Annetta Mar on 08-11-2024 Bilirubin [Mass/Vol] 0.22 mg/dL 0.00-1.30 [facility] Blood manual differential co mment interpretation (narrative result)Ordered By: Annetta Mar on 08-11-2024 Manual differential comment Julio (Bld) [Interp] SCANNED [facility] Comment on above: EOSINOPHILLIA PRESEN TLEFT SHIFT: BANDS PRESENT 1+ CRPon 08-11-2024 C-REACTIVE PROT 10.40 mg/L High 0.0-3.0 [facility] Comment on above: Performed By: #### L 501.080 #### [facility] [address] [place], [address] CRP [Mass/Vol]Ordered By: Ra aman Brito on 08-11-2024 C-Reactive Protein Extended Range 10.40 mg/L High 0.0-3.0 [facility] Centromere B antibody assayO rdered By: Bipin Brito on 08-11-2024 Centromere B Antibody <0.2 AI 0.0-0.9 [facility] Comment on above: Previous reported re sult: TNP AIEdited by: JIMENA on 08/12/24:1308 AMENDED REPORT 08/12/24 1308 ANTI-CENT B previously reported as: Test not performed Chitobioside IgA IA QnOrdere d By: Bipin Brito on 08-11-2024 Chitobioside Carbohydrat (ACCA) IgA 33 units 0-90 [facility] Comment on above: Negative: <80 Equivo yobany: 80-90 Positive: >90 Chitobioside IgA antibody as sayOrdered By: Bipin Brito on 08-11-2024 Chitobioside IgA IA Qn 33 units 0-90 [facility] Comment on above: Negative: <80 Equivo yobany: 80-90 Positive: >90 Chromatin antibody assayOrde red By: Bipin Brito on 08-11-2024 Antichromatin Antibodies <0.2 AI 0.0-0.9 [facility] Comment on above: Previous reported re sult: TNP AIEdited by: JIMENA on 08/12/24:1308 AMENDED REPORT 08/12/24 1308 ANTICHROMATIN previously reported as: Test not performed Colonoscopy Reporton 025 Colonoscopy Report [facility] Medical Records Department [address] [place] [id number] Colonoscopy Report MR#: [id number] Acct: [id number] Name: PEDRO KARIMI Rep #: [id number] : 1965 58 From: Bipin Brito DO PCP: Dr. Margot Mai MD Status:ADM IN Patient Name: Pedro Karimi Procedure Date: 08/11/2024 12:12 PM Date of : 1965 Age: 58 Procedure: Colonoscopy Indications: Clinically significant diarrhea of unexplained origin Providers: Bipin Brito DO Medicines: Monitored Anesthesia Care Patient Profile: This is a 58 year old male. Refer to note in patient chart for documentation of history and physical. Patient has symptoms of acute abdominal cramping and acute epigastric abdominal pain. Last Colonoscopy: 1 year ago. Complications: No immediate complications. Procedure: Pre-Anesthesia Assessment: - Prior to the procedure, a History and Physical was performed, and patient medications and allergies were reviewed. The patient is competent. The risks and benefits of the procedure and the sedation options and risks were discussed with the patient. All questions were answered and informed consent was obtained. Patient identification and proposed procedure were verified by the physician in the pre-procedure area. Mental Status Examination: alert and oriented. Airway Examination: normal oropharyngeal airway and neck mobility. Respiratory Examination: clear to auscultation. CV Examination: normal. ASA Grade Assessment: II - A patient with mild systemic disease. After reviewing the risks and benefits, the patient was deemed in satisfactory condition to undergo the procedure. The anesthesia plan was to use monitored anesthesia care (MAC). Immediately prior to administration of medications, the patient was re-assessed for adequacy to receive sedatives. The heart rate, respiratory rate, oxygen saturations, blood pressure, adequacy of pulmonary ventilation, and response to care were monitored throughout the procedure. The physical status of the patient was re-assessed after the procedure. After I obtained informed consent, the scope was passed under direct vision. Throughout the procedure, the patient's blood pressure, pulse, and oxygen saturations were monitored continuously. The Colonoscope was introduced through the anus and advanced to the terminal ileum. The colonoscopy was performed without difficulty. The patient tolerated the procedure well. The quality of the bowel preparation was adequate. The terminal ileum, ileocecal valve, appendiceal orifice, and rectum were photographed. Scope In: 12:14:13 PM Scope Withdrawal Time 0 hours 19 minutes 25 seconds Scope Out: 12:42:18 PM Total Procedure Duration Time 0 hours 28 minutes 5 seconds Findings: The perianal and digital rectal examinations were normal. Multiple small and large-mouthed diverticula were found in the entire colon. Two sessile polyps were found in the transverse colon and ascending colon. The polyps were 1 to 2 mm in size. These polyps were removed with a hot snare. Resection and retrieval were complete. Verification of patient identification for the specimen was done. Estimated blood loss was minimal. An area of mildly congested mucosa was found in the entire colon. Biopsies were taken with a cold forceps for histology. Verification of patient identification for the specimen was done. Estimated blood loss was minimal. Patchy mild inflammation characterized by erythema was found in the distal ileum and in the terminal ileum. Biopsies were taken with a cold forceps for histology. Verification of patient identification for the specimen was done. Estimated blood loss was minimal. Impression: - Diverticulosis in the entire examined colon. - Two 1 to 2 mm polyps in the transverse colon and in the ascending colon, removed with a hot snare. Resected and retrieved. - Congested mucosa in the entire examined colon. Biopsied. - Mild inflammation was found in the ileum secondary to ileitis. Biopsied. Recommendation: - [facility]. - Diabetic (ADA) diet. - Continue present medications. - Await pathology results. - Repeat colonoscopy in 1 year for surveillance. Procedure Code(s): --- Professional --- 56072, Colonoscopy, flexible; with removal of tumor(s), polyp(s), or other lesion(s) by snare technique 75705, 59, Colonoscopy, flexible; with biopsy, single or multiple CPT copyright 2021 [employer]. All rights reserved. The codes documented in this report are preliminary and upon front office developer review may be revised to meet current compliance requirements. Bipin Brito DO 08/11/2024 12:54:42 PM This report has been signed electronically. Number of Addenda: 0 Note Initiated On: 08/11/2024 12:12 PM 08/11/24 1254 (more content not included)... Normal [facility] Comprehensive Metabolic Prof ilon 08-11-2024 Albumin [Mass/Vol] 2.9 g/dL Low 3.5-5.0 [facility] Comment on above: Performed By: #### L 501.080 #### [facility] [address] [facility] [place], [address] Albumin/Globulin [Mass ratio] 1.6 {ratio} Normal 0.9-2.4 [facility] Comment on above: Performed By: #### L 501.080 #### [facility] [address] [place], [address] ALK PHOS 71 U/L Normal 40-129 [facility] Comment on above: Performed By: #### L 501.080 #### [facility] [address] [facility] [place], [address] ALT [Catalytic activity/Vol] 7 U/L Normal <=46 [facility] Comment on above: Performed By: #### L 501.080 #### [facility] [address] [place], [address] AST [Catalytic activity/Vol] 12 U/L Normal <=37 [facility] Comment on above: Performed By: #### L 501.080 #### [facility] [address] [place], [address] Bilirubin [Mass/Vol] 0.22 mg/dL Normal 0.00-1.30 [facility] Comment on above: Performed By: #### L 501.080 #### [facility] [address] [place], [address] BUN/CRE 17.2 RATIO Normal 10-20 [facility] Comment on above: Performed By: #### L 501.080 #### [facility] [address] [place], [address] Calcium [Mass/Vol] 8.2 mg/dL Normal 7.6-11.0 [facility] Comment on above: Performed By: #### L 501.080 #### [facility] [address] [place], [address] Chloride [Moles/Vol] 105 mmol/L Normal 98-108 [facility] Comment on above: Performed By: #### L 501.080 #### [facility] [address] [place], [address] CO2 [Moles/Vol] 19.6 mmol/L Low 21.0-32.0 [facility] Comment on above: Performed By: #### L 501.080 #### [facility] [address] [place], [address] Creatinine [Mass/Vol] 1.12 mg/dL Normal 0.70-1.20 [facility] Comment on above: Performed By: #### L 501.080 #### [facility] [address] [place], [address] ECRCL 104.02 ml/min Normal 50-250 [facility] Comment on above: Performed By: #### L 501.080 #### [facility] [address] [place], [address] GAP 10 Normal 5-15 [facility] Comment on above: Performed By: #### L 501.080 #### [facility] [address] [place], [address] GFR/1.73 sq M.predicted among non-blacks MDRD (S/P/Bld) [Vol rate/Area] 76 mL/min/{1.73_m2} Normal >60 [facility] Comment on above: Result Comment: mL/m in/1.73m2 CKD-EPI Creatinine Equation (2020) Performed By: #### L 501.080 #### [facility] [address] [place], [address] Globulin (S) [Mass/Vol] 1.9 g/dL Low 2.2-4.2 [facility] Comment on above: Performed By: #### L 501.080 #### [facility] [address] [place], [address] Glucose [Mass/Vol] 77 mg/dL Normal 70-99 [facility] Comment on above: Performed By: #### L 501.080 #### [facility] [address] [place], [address] Potassium [Moles/Vol] 3.4 mmol/L Normal 3.3-5.1 [facility] Comment on above: Performed By: #### L 501.080 #### [facility] [address] [place], [address] Sodium [Moles/Vol] 134 mmol/L Normal 133-145 [facility] Comment on above: Performed By: #### L 501.080 #### [facility] [address] [place], [address] T PROT 4.8 g/dL Low 5.9-8.4 [facility] Comment on above: Performed By: #### L 501.080 #### [facility] [address] [place], [id number] Urea nitrogen [Mass/Vol] 19 mg/dL Normal 4-19 [facility] Comment on above: Performed By: #### L 501.080 #### [facility] [address] [place], [place], [address] Creatinine, Urine (random)on 08-11-2024 UR CREAT 82.00 mg/dL Normal 39.00-259. 00 [facility] Comment on above: Performed By: #### L 501.080 #### [facility] [address] [place], [place], [address] DNA double strand Ab Qn (S)O rdered By: Bipin Brito on 08-11-2024 Anti-Double Strand DNA Antibody <1 IU/mL 0-9 [facility] Comment on above: Negative <5 Equivoca l 5 - 9 Positive >9 EGD Reporton 08-11-2024 EGD Report [facility] Medical Records Department [address] [place] [address] EGD Report MR#: [id number] Acct: [id number] Name: PEDRO KARIMI Rep #: [id number] : 1965 58 From: Bipin Brito DO PCP: Dr. Margot Mai MD Status:ADM IN Patient Name: Pedro Karimi Procedure Date: 08/11/2024 11:22 AM Date of : 1965 Age: 58 Procedure: Upper GI endoscopy Indications: Epigastric abdominal pain Providers: Bipin Brito DO Medicines: Monitored Anesthesia Care Patient Profile: This is a 58 year old male. Refer to note in patient chart for documentation of history and physical. Patient has symptoms of acute abdominal cramping and acute epigastric abdominal pain. Complications: No immediate complications. Procedure: Pre-Anesthesia Assessment: - Prior to the procedure, a History and Physical was performed, and patient medications and allergies were reviewed. The patient is competent. The risks and benefits of the procedure and the sedation options and risks were discussed with the patient. All questions were answered and informed consent was obtained. Patient identification and proposed procedure were verified by the physician in the pre-procedure area. Mental Status Examination: alert and oriented. Airway Examination: normal oropharyngeal airway and neck mobility. Respiratory Examination: clear to auscultation. CV Examination: normal. ASA Grade Assessment: II - A patient with mild systemic disease. After reviewing the risks and benefits, the patient was deemed in satisfactory condition to undergo the procedure. The anesthesia plan was to use monitored anesthesia care (MAC). Immediately prior to administration of medications, the patient was re-assessed for adequacy to receive sedatives. The heart rate, respiratory rate, oxygen saturations, blood pressure, adequacy of pulmonary ventilation, and response to care were monitored throughout the procedure. The physical status of the patient was re-assessed after the procedure. After obtaining informed consent, the endoscope was passed under direct vision. Throughout the procedure, the patient's blood pressure, pulse, and oxygen saturations were monitored continuously. The Colonoscope was introduced through the mouth, and advanced to the fourth part of the duodenum. Small bowel enteroscopy was deemed necessary. The upper GI endoscopy was accomplished without difficulty. The patient tolerated the procedure well. Scope In: 12:06:02 PM Scope Out: 12:12:41 PM Total Procedure Duration Time 0 hours 6 minutes 39 seconds Findings: LA Grade B (one or more mucosal breaks greater than 5 mm, not extending between the tops of two mucosal folds) esophagitis with no bleeding was found 36 to 38 cm from the incisors. Biopsies were taken with a cold forceps for histology. Verification of patient identification for the specimen was done. Estimated blood loss was minimal. Localized moderate inflammation characterized by erosions and erythema was found in the gastric body. Biopsies were taken with a cold forceps for histology. Verification of patient identification for the specimen was done. Estimated blood loss was minimal. Biopsies were taken with a cold forceps for Helicobacter pylori testing. Verification of patient identification for the specimen was done. Estimated blood loss was minimal. Patchy mild inflammation characterized by erythema was found in the first portion of the duodenum, in the second portion of the duodenum, in the third portion of the duodenum and in the fourth portion of the duodenum. Biopsies were taken with a cold forceps for histology. Verification of patient identification for the specimen was done. Estimated blood loss was minimal. Impression: - LA Grade B erosive esophagitis with no bleeding. Biopsied. - Acute gastritis. Biopsied. - Erosive duodenitis. Biopsied. Recommendation: - [facility]. - Resume previous diet. - Continue present medications. - Await pathology results. Procedure Code(s): --- Professional --- 40974, Small intestinal endoscopy, enteroscopy beyond second portion of duodenum, not including ileum; with biopsy, single or multiple CPT copyright 2021 [employer]. All rights reserved. The codes documented in this report are preliminary and upon front office developer review may be revised to meet current compliance requirements. Bipin Brito DO 08/11/2024 12:50:41 PM This report has been signed electronically. Number of Addenda: 0 Note Initiated On: 08/11/2024 11:22 AM 08/11/24 1250 Date Bipin Brito DO Cosigner Signature: Date (if indicated) CC: Dr. Margot Mai MD; Bipin Brito DO (more content not included)... Normal [facility] Erythrocyte Sed Rateon 08-11 SED RATE 2 mm/hr Normal 0-20 [facility] Comment on above: Performed By: #### L 501.080 #### [facility] [address] [place], [address] Erythrocyte sedimentation ra teOrdered By: Bipin Brito on 08-11-2024 ESR (Bld) [Velocity] 2 mm/h 0-20 [facility] IgEOrdered By: Bipin lujan on 08-11-2024 IgE 176 IU/mL 6-495 [facility] Immunohistochemical Stainson 08-11-2024 Immunohistochemical Stains --------- ---- Patient Age/Sex Location Account Attending Physician ---- PEDRO KARIMI 58/M [facility] [id number] Dr. Yfn Mccarthy MD ---- Specimen: [id number] Received: 08/11/24 Status: EVETTE Dumas Num: [id number] Spec Type: COLON BX Subm Dr: Bipin Brito DO HEADER OPERATION: Colonoscopy with polypectomy and biopsy, EGD with biopsy PRE-OP DIAGNOSIS: Bloody diarrhea, nausea and vomiting TISSUE SUBMITTED: A- Duodenum biopsy, B- Gastric body biopsy, C- Distal esophagus biopsy,D- Transverse polyp, E- Ascending colon polyp, F- Terminal ileum biopsy, G- Random colon biopsy ---- MICROSCOPIC DIAGNOSIS A. Small Intestine, Duodenum, Biopsy: * Mild acute inflammation with increased eosinophils and Julius gland hyperplasia - see note. * Essentially normal villous architecture, negative for increased intraepithelial lymphocytes. Note: Acute inflammation with Julius gland hyperplasia is suggestive of peptic injury. B. Stomach, Gastric Body, Biopsy: * Active chronic gastritis with scattered eosinophils. * IHC negative for H pylori organisms. C. Distal Esophagus, Biopsy: * Squamous mucosa negative for eosinophils. * Columnar mucosa negative for goblet cell metaplasia. D. Transverse Colon, Polyp, Biopsy: * Tubular adenoma - see note. Note: The tissue is distorted with cautery artifact. E. Ascending Colon, Polyp, Biopsy: * Tubular adenoma. Note: The tissue is distorted with cautery artifact. F. Small Intestine, Terminal Ileum, Biopsy: * No specific pathologic change. G. Colon, Random, Biopsy: * No specific pathologic change. * The histologic features of microscopic colitis are not demonstrated. MICROSCOPIC DESCRIPTION Slides are reviewed. Matched controls reacted appropriately. ---- Patient Age/Sex Location Account Attending Physician ---- PEDRO KARIMI 58/M [facility] [id number] Dr. Yfn Mccarthy MD ---- GROSS DESCRIPTION A. Received in formalin in a container labeled with the patient's name, date of , and duodenum are multiple keller-pink fragments of mucosal tissue measuring 1.0 x 0.7 x 0.3 cm in aggregate. Entirely submitted in A1.B. Received in formalin in a container labeled with the patient's name, date of , and gastric body biopsy for H. pylori and path are multiple keller-pink fragments of mucosal tissue measuring 0.8 x 0.6 x 0.3 cm in aggregate. Entirely submitted in B1. C. Received in formalin in a container labeled with the patient's name, date of , and distal esophagus biopsy are 2 keller-pink fragments of mucosal tissue, each measuring 0.5 x 0.5 x 0.2 cm. Entirely submitted in C1. D. Received in formalin in a container labeled with the patient's name, date of , and transverse polyp are multiple, tiny keller-pink fragments of mucosal tissue measuring 0.8 x 0.7 x 0.2 cm in aggregate. Entirely submitted in D1. E. Received in formalin in a container labeled with the patient's name, date of , and ascending colon polyp are multiple keller-pink fragments of soft tissue and fecal debris measuring 2.5 x 1.0 x 0.3 cm in aggregate. Entirely submitted in E1. F. Received in formalin in a container labeled with the patient's name, date of , and terminal ileum biopsy are 3 keller-pink fragments of mucosal tissue, each measuring 0.3 x 0.2 x 0.2 cm. Entirely submitted in F1. G. Received in formalin in a container labeled with the patient's name, date of , and random colon biopsy are multiple keller-pink fragments of mucosal tissue measuring 1.4 x 0.7 x 0.3 cm in aggregate. Entirely submitted in G1. [facility] 08-11-2024 [facility]:[id number] ---- Patient Age/Sex Location Account Attending Physician ---- PEDRO KARIMI 58/M [facility] [id number] Dr. Yfn Mccarthy MD ---- Signed (signature on file) Dr. Gwendolyn James MD 08/14/24 1534 ---- Normal [facility] Comment on above: Performed By: #### L 501.080 #### [facility] [place], [address] Interpretation of serum or p lasma protein pattern by immunofixation (narrative resultOrdered By: Bipin Brito on 08-11-2024 Protein Fractions Immunofixation Julio [Interp] Not Observed g/dL Not Observed [facility] Bebe-1 antibody assayOrdered B y: Bipin Brito on 08-11-2024 BEBE-1 Antibody <0.2 AI 0.0-0.9 [facility] Comment on above: Previous reported re sult: TNP AIEdited by: JIMENA on 08/12/24:1308 AMENDED REPORT 08/12/24 1308 ANTI-BEBE previously reported as: Test not performed Kidney and Bladderon 025 Kidney and Bladder [facility] Imaging Services [address] [place], [place] [address] Kidney and Bladder MR#: [id number] Acct: [id number] Name: PEDRO KARIMI Rep #: [id number] : 1965 M 58 From: Jr sue MD PCP: Dr. Margot Mai MD Status: ADM IN Study: Kidney and Bladder Date of Exam: 08/11/24 Exam# [id number] Ordering Dr: Annetta Mar DO PROCEDURE: KIDNEY AND BLADDER 08/11/2024 REASON FOR EXAM: FRANSISCA TECHNIQUE: Bilateral renal ultrasound. 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 [place]: No hydronephrosis seen. Cysts or Masses: No cysts or large solid renal masses. RIGHT Kidney Size: 14.4 cm x 5.9 cm x 4.5 cm Cortical Thickness (if discernible): 2.1 cm (>6mm is normal) LEFT Kidney Size: 10.9 cm x 5.4 cm x 3.5 cm Cortical Thickness (if discernible): 1.5 cm (>6mm is normal) The urinary bladder is only partially filled. There is thickening of the urinary bladder wall most likely due to incomplete distention. US/Kidney and Bladder IMPRESSION: Horseshoe kidney. No evidence of hydronephrosis. Partial distention of the urinary bladder with mild bladder wall thickening. Reading Location: [place] [address] CC: Dr. Margot Mai MD; Dr. Annetta Mar DO Tour Director: Signed Normal [facility] LDHon 08-11-2024 LDH 184 U/L Normal 87-241 [facility] Comment on above: Performed By: #### L 501.080 #### [facility] [address] [place], [address] Laboratory - Chemistry and C hemistry - challengeOrdered By: Annetta Mar on 08-11-2024 AST [Catalytic activity/Vol] 12 U/L <38 [facility] Laboratory - Miscellaneous t estsOrdered By: Bipin Brito on 08-11-2024 Laboratory comment Julio (Report) Comment . [facility] Comment on above: Pattern is not sugge stive of Inflammatory Bowel DiseasePerformed at: [facility] [id number] Director: Moustapha Tellez MD, Phone: [phone] Laboratory comment Julio (Repo rt)Ordered By: iBpin Brito on 08-11-2024 IBD Serology Comment Comment . [facility] Comment on above: Pattern is not sugge stive of Inflammatory Bowel DiseasePerformed at: [facility] [id number] Director: Moustapha Tellez MD, Phone: [phone] Lactate dehydrogenase (LDH) measurementOrdered By: Bipin Brito on 08-11-2024 LDH [Catalytic activity/Vol] 184 U/L 87-241 [facility] Laminaribioside IgG IA QnOrd ered By: Bipin Brito on 08-11-2024 Laminaribioside Carbohyd (ALCA) IgG 0 units 0-60 [facility] Comment on above: Negative:<55 Equivoc al: 55-60 Positive: >60 Laminaribioside carbohydrate IgG antibody assayOrdered By: Bipin Brito on 08-11-2024 Laminaribioside IgG IA Qn 0 units 0-60 [facility] Comment on above: Negative:<55 Equivoc al: 55-60 Positive: >60 MR/POSTOP.ANEon 08-11-2024 MR/POSTOP.ANE [facility] Medical Records Department [address] [place] [address] Anesthesia Postop Eval I 08/11/24 1254 MR#: [id number] Acct: [id number] Name: PEDRO KARIMI Rep #: [id number] : 1965 58 From: Alexx Reyes PCP: Dr. Margot Mai MD Status:ADM IN Y Race: C Location: [place] [address] Anesthesia: Postop Eval I Current Vital Signs Temperature: 97 F Pulse Rate: 62 Blood Pressure: 103/48 Respiratory Rate: 16 Pulse Ox: 98 Oxygen Delivery Method: Room Air Assessment Airway patent: Yes Spontaneous unlabored respirations: Yes Mental status: Awake and Calm nausea: No Vomiting: No Anesthesia Complication: No Fluid Hydration Crystalloid volume administer (ml): 90 Total IV fluid infused: 90 Progress Note Anesthesia document: Postop Eval 1 completed: Yes 08/11/24 1256 Date Alexx Catrer Signature: Date CC: Signed Normal [facility] MR/[id number] 08-11-2024 [facility] Medical Records Department [address] [place] [address] Anesthesia Postop Eval II 08/11/24 1346 MR#: [id number] Acct: [id number] Name: PEDRO KARIMI Rep #: [id number] : 1965 58 From: Jayant Archuleta MD PCP: Dr. Margot Mai MD Status:ADM IN Y Race: C Location: [place] [address] Anesthesia Postop Eval I Sum Postop Eval Completion status Anesthesia document: Postop Eval 1 completed: Yes Anesthesia Postop Eval I Summary Anesthesia Postop Eval I Summary: Anesthesia Postop Eval I: Assessment Summary Airway patent Yes 08/11/24 12:56 [email or web address] Spontaneous unlabored Yes 08/11/24 12:56 [email or web address] respirations Mental status Awake,Calm 08/11/24 12:56 [email or web address] nausea No 08/11/24 12:56 [email or web address] Vomiting No 08/11/24 12:56 [email or web address] Anesthesia Postop Eval I: Fluid Summary Crystalloid volume administer 90 08/11/24 12:56 [email or web address] (ml) Colloids volume administered ( ml) Blood Product volume administered (ml) Total IV fluid infused 90 08/11/24 12:56 [email or web address] Anesthesia Postop Eval I: Summary Notes Anesthesia Complication No 08/11/24 12:56 [email or web address] Anesthesia Complication Comment: Post-operative progress note Anesthesia: Postop Eval II Evaluation Mental status: Awake Pain Level: 0 nausea: No Vomiting: No 08/11/24 1346 Date Jayant Rickignnas Signature: Date CC: Signed Normal [facility] Mannobioside IgG IA QnOrdere d By: Bipin Brito on 08-11-2024 Mannobioside Carbohydrat (AMCA) IgG 37 units 0-100 [facility] Comment on above: Negative: <90 Equivo yobany: 90-100 Positive: >100 This test was developed and its performance characteristics determined by [facility]. It has not been cleared or approved by the Food and Drug Administration. The FDA has determined that such clearance or approval is not necessary. Manual differential comment Julio (Bld) [Interp]Ordered By: Annetta Mar on 08-11-2024 Differential Comment SCANNED [facility] Comment on above: EOSINOPHILLIA PRESEN TLEFT SHIFT: BANDS PRESENT 1+ Myelocyte %Ordered By: Kacey Mar on 08-11-2024 Myelocytes/100 WBC (Bld) 2 % High 0-0 [facility] Neutrophil cytoplasmic Ab.pe rinuclear.atypical IF (S) [Titer]Ordered By: Bipin Brito on 08-11-2024 Atypical p-ANCA Negative Negative [facility] No Panel InformationOrdered By: Bipin Brito on 08-11-2024 Addendum Document Comment . [facility] Comment on above: Protein electrophore sis scan will follow via computer,mail, or prefabricated houses trimmer delivery. Tissue Transglutaminase IgG Ab 5 U/mL 0-5 [facility] Comment on above: Negative 0 - 5 Weak Positive 6 - 9 Positive >9 [employer] SUPERVISOR abOrdered By: Bipin Brown iend on 08-11-2024 [employer]MENT SUPERVISOR Antibody <0.2 AI 0.0-0.9 [facility] Comment on above: Previous reported re sult: TNP AIEdited by: JIMENA on 08/12/24:1308 AMENDED REPORT 08/12/24 1308 [employer] SUPERVISOR Ab previously reported as: Test not performed Reactive lymphocyte countOrd ered By: Annetta Mar on 08-11-2024 Reactive Lymphocytes 1+ [facility] SCL-70 extractable nuclear A b Qn (S)Ordered By: Bipin Brito on 08-11-2024 Scl-70 (Scleroderma) Antibody <0.2 AI 0.0-0.9 [facility] SS-A IgG antibody assayOrder ed By: Bipin Brito on 08-11-2024 SS-A/Ro IgG Antibody < 0.2 AI 0.0-0.9 [facility] Comment on above: Previous reported re sult: TNP AIEdited by: JIMENA on 08/12/24:1308 AMENDED REPORT 08/12/24 1308 Anti-SS-A previously reported as: Test not performed SS-B IgG antibody assayOrder ed By: Bipin Brito on 08-11-2024 SS-B/La IgG Antibody < 0.2 AI 0.0-0.9 [facility] Comment on above: Previous reported re sult: TNP AIEdited by: JIMENA on 08/12/24:1308 AMENDED REPORT 08/12/24 1308 Anti-SS-B previously reported as: Test not performed Serum DNA double strand anti body assay (units/volume)Ordered By: Bipin Brito on 08-11-2024 DNA double strand Ab Qn (S) [IU]/mL 0-9 [facility] Comment on above: Negative <5 Equivoca l 5 - 9 Positive >9 Serum IgG subclass 1 measure ment (mass/volume)Ordered By: Bipin Brito on 08-11-2024 IgG subclass 1 (S) [Mass/Vol] 225 mg/dL Low 248-810 [facility] Serum IgG subclass 2 measure ment (mass/volume)Ordered By: Bipin Brito on 08-11-2024 IgG subclass 2 (S) [Mass/Vol] 205 mg/dL 130-555 [facility] Serum IgG subclass 3 measure ment (mass/volume)Ordered By: Bipin Brito on 08-11-2024 IgG subclass 3 (S) [Mass/Vol] 31 mg/dL 15-102 [facility] Serum Scl-70 antibody assay (units/volume)Ordered By: Bipin Brito on 08-11-2024 SCL-70 extractable nuclear Ab Qn (S) <0.2 AI 0.0-0.9 [facility] Serum classic neutrophil cyt oplasmic antibody assay (units/volume)Ordered By: Bipin Brito on 08-11-2024 Neutrophil cytoplasmic Ab.classic Qn (S) <1:20 titer Neg:<1:20 [facility] Serum globulin measurementOr dered By: Annetta Mar on 08-11-2024 Globulin (S) [Mass/Vol] 1.9 g/dL Low 2.2-4.2 [facility] Serum globulin measurement ( mass/volume)Ordered By: Bipin Brito on 08-11-2024 Globulin (S) [Mass/Vol] 2.5 g/dL 2.2-3.9 [facility] Serum or plasma C reactive p rotein measurement (mass/volume)Ordered By: Bipin Brito on 08-11-2024 CRP [Mass/Vol] 10.40 mg/L High 0.0-3.0 [facility] Serum or plasma IgA measurem ent (mass/volume)Ordered By: Bipin Brito on 08-11-2024 IgA [Mass/Vol] 242 mg/dL 90-386 [facility] Serum or plasma IgG measurem ent (mass/volume)Ordered By: Bipin Brito on 08-11-2024 IgG [Mass/Vol] 637 mg/dL 603-1613 [facility] IgG [Mass/Vol] TNP [facility] Comment on above: Test not performed Serum or plasma alanine casey otransferase (ALT) measurementOrdered By: Annetta Mar on 08-11-2024 ALT [Catalytic activity/Vol] 7 U/L <47 [facility] Serum or plasma albumin brian urement (mass/volume)Ordered By: Annetta Mar on 08-11-2024 Albumin [Mass/Vol] 2.9 g/dL Low 3.5-5.0 [facility] Serum or plasma albumin/glob ulin mass ratioOrdered By: Annetta Mar on 08-11-2024 Albumin/Globulin [Mass ratio] 1.6 {ratio} 0.9-2.4 [facility] Serum or plasma alkaline moriah sphatase measurementOrdered By: Annetta Mar on 08-11-2024 ALP [Catalytic activity/Vol] 71 U/L 40-129 [facility] Serum or plasma alpha 1 glob ulin measurement by electrophoresis (mass/volume)Ordered By: Bipin Brito on 08-11-2024 Alpha 1 globulin Elph [Mass/Vol] 0.3 g/dL 0.0-0.4 [facility] Alpha 1 globulin Elph [Mass/Vol] 0.8 g/dL 0.4-1.0 [facility] Serum or plasma beta globuli n measurement by electrophoresis (mass/volume)Ordered By: Bipin Brito on 08-11-2024 Beta globulin Elph [Mass/Vol] 0.9 g/dL 0.7-1.3 [facility] Serum or plasma gamma globul in measurement by electrophoresis (mass/volume)Ordered By: Bipin Brito on 08-11-2024 Gamma globulin Elph [Mass/Vol] 0.5 g/dL 0.4-1.8 [facility] Serum or plasma immunoelectr ophoresis interpretation (nominal result)Ordered By: Bipin Brito on 08-11-2024 Interpretation IEP [Interp] Comment . [facility] Comment on above: No monoclonality det ected. Serum or plasma mannobioside IgG antibody assay by immunoassay (units/volume)Ordered By: Bipin Brito on 08-11-2024 Mannobioside IgG IA Qn 37 units 0-100 [facility] Comment on above: Negative: <90 Equivo yobany: 90-100 Positive: >100 This test was developed and its performance characteristics determined by [employer]. It has not been cleared or approved by the Food and Drug Administration. The FDA has determined that such clearance or approval is not necessary. Serum perinuclear neutrophil cytoplasmic antibody titer by immunofluorescenceOrdered By: Bipin Brito on 08-11-2024 Neutrophil cytoplasmic Ab.perinuclear IF (S) [Titer] <1:20 titer Neg:<1:20 [facility] Comment on above: The presence of posi tive fluorescence exhibiting P-ANCA orC-ANCA patterns alone is not specific for the diagnosis ofWegener's Granulomatosis (WG) or microscopic polyangiitis.Decisions about treatment should not be based solely onANCA IFA results. The International ANCA Group Consensusrecommends follow up testing of positive sera with both ND-3 and MPO-ANCA enzyme immunoassays. As many as 5% serumsamples are positive only by EIA. Ref. AM J Clin Ulzygu3452;111:507-513. Serum tissue transglutaminas e (tTG) IgA antibody assay (units/volume)Ordered By: Bipin Brito on 08-11-2024 tTG IgA Qn (S) <2 U/mL 0-3 [facility] Comment on above: Negative 0 - 3 Weak Positive 4 - 10 Positive >10 Tissue Transglutaminase (tTG) has been identified as the endomysial antigen. Studies have demonstr- ated that endomysial IgA antibodies have over 99% specificity for gluten sensitive enteropathy. Roe antibody assayOrdered By: Bipin Brito on 08-11-2024 SM Antibody <0.2 AI 0.0-0.9 [facility] Comment on above: Previous reported re sult: TNP AIEdited by: JIMENA on 08/12/24:1308 AMENDED REPORT 08/12/24 1308 ROE Ab previously reported as: Test not performed Total proteinOrdered By: Tamica Mar on 08-11-2024 Protein [Mass/Vol] 4.8 g/dL Low 6.0-8.5 [facility] Urinalysis, Completeon 08-11 BACTERIA 0 SEEN Normal None Seen [facility] Comment on above: Order Comment: CLEAN CATCH Performed By: #### L 501.080 #### [facility] [address] [place], [address] EPI,SQUAMOUS 0 SEEN Normal 0-5 [facility] Comment on above: Order Comment: CLEAN CATCH Performed By: #### L 501.080 #### [facility] [address] [place], [address] Mucus Ql (Urine sed) 0 SEEN Normal [facility] Comment on above: Order Comment: CLEAN CATCH Performed By: #### L 501.080 #### [facility] [address] [place], [address] RBC 0 SEEN Normal 0-5 [facility] Comment on above: Order Comment: CLEAN CATCH Performed By: #### L 501.080 #### [facility] [address] [place], [address] WBC 0 SEEN Normal 0-5 [facility] Comment on above: Order Comment: CLEAN CATCH Performed By: #### L 501.080 #### [facility] [address] [place], [address] Urine Sodiumon 08-11-2024 UR NA < 20 Normal Not Establ. [facility] Comment on above: Performed By: #### L 501.080 #### [facility] [address] [place], [address] Basic Metabolic Profile (BMP )on 08-10-2024 BUN/CRE 18.5 RATIO Normal 10-20 [facility] Comment on above: Performed By: #### L 100.0100, L500.4050, L501.2450 #### [facility] [address] [place], [address] Calcium [Mass/Vol] 8.2 mg/dL Normal 7.6-11.0 [facility] Comment on above: Performed By: #### L 100.0100, L500.4050, L501.2450 #### [facility] [address] [place], [address] Chloride [Moles/Vol] 101 mmol/L Normal 98-108 [facility] Comment on above: Performed By: #### L 100.0100, L500.4050, L501.2450 #### [facility] [address] [place], [address] CO2 [Moles/Vol] 20.6 mmol/L Low 21.0-32.0 [facility] Comment on above: Performed By: #### L 100.0100, L500.4050, L501.2450 #### [facility] [address] [place], [address] Creatinine [Mass/Vol] 1.49 mg/dL High 0.70-1.20 [facility] Comment on above: Performed By: #### L 100.0100, L500.4050, L501.2450 #### [facility] [address] [place], [address] ECRCL 78.19 ml/min Normal 50-250 [facility] Comment on above: Performed By: #### L 100.0100, L500.4050, L501.2450 #### [facility] [address] [place], [address] GAP 11 Normal 5-15 [facility] Comment on above: Performed By: #### L 100.0100, L500.4050, L501.2450 #### [facility] [address] [place], [address] GFR/1.73 sq M.predicted among non-blacks MDRD (S/P/Bld) [Vol rate/Area] 54 mL/min/{1.73_m2} Low >60 [facility] Comment on above: Result Comment: mL/m in/1.73m2 CKD-EPI Creatinine Equation (2020) Performed By: #### L 100.0100, L500.4050, L501.2450 #### [facility] [address] [place], [address] Glucose [Mass/Vol] 156 mg/dL High 70-99 [facility] Comment on above: Performed By: #### L 100.0100, L500.4050, L501.2450 #### [facility] [address] [place], [address] Potassium [Moles/Vol] 3.1 mmol/L Low 3.3-5.1 [facility] Comment on above: Performed By: #### L 100.0100, L500.4050, L501.2450 #### [facility] [address] [place], [address] Sodium [Moles/Vol] 132 mmol/L Low 133-145 [facility] Comment on above: Performed By: #### L 100.0100, L500.4050, L501.2450 #### [facility] [address] [place], [address] Urea nitrogen [Mass/Vol] 28 mg/dL High 4-19 [facility] Comment on above: Performed By: #### L 100.0100, L500.4050, L501.2450 #### [facility] [address] [place], [address] Bedside Glucoseon 08-10-2024 FINGERSTICK GLU 158 mg/dL High 74-106 [facility] Comment on above: Result Comment: NYASIA SIMON OF PATIENT CARE PER NURSING PROTOCOL Performed By: #### L 100.1300 #### [facility] [address] [place], [address] FINGERSTICK GLU 131 mg/dL High 74-106 [facility] Comment on above: Result Comment: NYASIA GEMENT OF PATIENT CARE PER NURSING PROTOCOL Performed By: #### L 501.2300, L500.2500, L501.5200, L100.0100 #### [facility] [address] [place], [address] FINGERSTICK GLU 166 mg/dL High 74-106 [facility] Comment on above: Result Comment: NYASIA GEMENT OF PATIENT CARE PER NURSING PROTOCOL Performed By: #### L 100.0100, L500.4050, L501.2450 #### [facility] [address] [place], [address] FINGERSTICK GLU 125 mg/dL High 74-106 [facility] Comment on above: Result Comment: NYASIA GEMENT OF PATIENT CARE PER NURSING PROTOCOL Performed By: #### L 100.0100, L500.4050, L501.2450 #### [facility] [address] [place], [address] Bilirubin Test strip Ql (U)O rdered By: Annetta Mar on 08-10-2024 Bilirubin Ql (U) Negative Negative [facility] Blood cultureOrdered By: Tamica Mar on 08-10-2024 Bacteria identified Cx Nom (Bld) No growth in 5 days. [facility] Bacteria identified Cx Nom (Bld) No growth in 5 days. [facility] CBC W/Diff, Automatedon 07-14 Absolute Lymph 3.98 X10 3/uL Normal 0.83-4.51 [facility] Comment on above: Performed By: #### L 501.2300, L500.2500, L501.5200, L100.0100 #### [facility] [address] [place], [address] Absolute Neut 10.5 X10 3/uL High 2.0-7.7 [facility] Comment on above: Performed By: #### L 501.2300, L500.2500, L501.5200, L100.0100 #### [facility] [address] [place], [address] Comprehensive Metabolic Prof ilon 08-10-2024 Albumin [Mass/Vol] 2.9 g/dL Low 3.5-5.0 [facility] Comment on above: Performed By: #### L 501.2300, L500.2500, L501.5200, L100.0100 #### [facility] [address] [place], [address] Albumin/Globulin [Mass ratio] 1.3 {ratio} Normal 0.9-2.4 [facility] Comment on above: Performed By: #### L 501.2300, L500.2500, L501.5200, L100.0100 #### [facility] [address] [place], [address] ALK PHOS 71 U/L Normal 40-129 [facility] Comment on above: Performed By: #### L 501.2300, L500.2500, L501.5200, L100.0100 #### [facility] [address] [place], [address] ALT [Catalytic activity/Vol] 5 U/L Normal <=46 [facility] Comment on above: Performed By: #### L 501.2300, L500.2500, L501.5200, L100.0100 #### [facility] [address] [place], [address] AST [Catalytic activity/Vol] 9 U/L Normal <=37 [facility] Comment on above: Performed By: #### L 501.2300, L500.2500, L501.5200, L100.0100 #### [facility] [address] [place], [address] Bilirubin [Mass/Vol] 0.25 mg/dL Normal 0.00-1.30 [facility] Comment on above: Performed By: #### L 501.2300, L500.2500, L501.5200, L100.0100 #### [facility] [address] [place], [address] BUN/CRE 15.8 RATIO Normal 10-20 [facility] Comment on above: Performed By: #### L 501.2300, L500.2500, L501.5200, L100.0100 #### [facility] [address] [place], [address] Calcium [Mass/Vol] 7.8 mg/dL Normal 7.6-11.0 [facility] Comment on above: Performed By: #### L 501.2300, L500.2500, L501.5200, L100.0100 #### [facility] [address] [place], [address] Chloride [Moles/Vol] 101 mmol/L Normal 98-108 [facility] Comment on above: Performed By: #### L 501.2300, L500.2500, L501.5200, L100.0100 #### [facility] [address] [place], [address] CO2 [Moles/Vol] 18.8 mmol/L Low 21.0-32.0 [facility] Comment on above: Performed By: #### L 501.2300, L500.2500, L501.5200, L100.0100 #### [facility] [address] [place], [address] Creatinine [Mass/Vol] 1.99 mg/dL High 0.70-1.20 [facility] Comment on above: Performed By: #### L 501.2300, L500.2500, L501.5200, L100.0100 #### [facility] [address] [place], [address] ECRCL 58.55 ml/min Normal 50-250 [facility] Comment on above: Performed By: #### L 501.2300, L500.2500, L501.5200, L100.0100 #### [facility] [address] [place], [address] GAP 12 Normal 5-15 [facility] Comment on above: Performed By: #### L 501.2300, L500.2500, L501.5200, L100.0100 #### [facility] [address] [place], [address] GFR/1.73 sq M.predicted among non-blacks MDRD (S/P/Bld) [Vol rate/Area] 38 mL/min/{1.73_m2} Low >60 [facility] Comment on above: Result Comment: mL/m in/1.73m2 CKD-EPI Creatinine Equation (2020) Performed By: #### L 501.2300, L500.2500, L501.5200, L100.0100 #### [facility] [address] [place], [address] Globulin (S) [Mass/Vol] 2.2 g/dL Normal 2.2-4.2 [facility] Comment on above: Performed By: #### L 501.2300, L500.2500, L501.5200, L100.0100 #### [facility] [address] [place], [address] Glucose [Mass/Vol] 135 mg/dL High 70-99 [facility] Comment on above: Performed By: #### L 501.2300, L500.2500, L501.5200, L100.0100 #### [facility] [address] [place], [address] Potassium [Moles/Vol] 3.0 mmol/L Low 3.3-5.1 [facility] Comment on above: Performed By: #### L 501.2300, L500.2500, L501.5200, L100.0100 #### [facility] [address] [place], [address] Sodium [Moles/Vol] 131 mmol/L Low 133-145 [facility] [facility] Comment on above: Performed By: #### L 501.2300, L500.2500, L501.5200, L100.0100 #### [facility] [address] [place], [address] T PROT 5.0 g/dL Low 5.9-8.4 [facility] Comment on above: Performed By: #### L 501.2300, L500.2500, L501.5200, L100.0100 #### [facility] [address] [place], [address] Urea nitrogen [Mass/Vol] 31 mg/dL High 4-19 [facility] Comment on above: Performed By: #### L 501.2300, L500.2500, L501.5200, L100.0100 #### [facility] [address] [place], [address] Creatinine Unsp time (U) [Ma ss/Vol]Ordered By: Annetta Mar on 08-10-2024 Creatinine (U) [Mass/Vol] 82.00 mg/dL 39 .00-259. 00 [facility] Epithelial cells.squamous LM Ql (Urine sed)Ordered By: Annetta Mar on 08-10-2024 Epithelial cells.squamous LM.HPF (Urine sed) [#/Area] 0 /[HPF] 0-5 [facility] Glucose Ql (U)Ordered By: Dyan Mar on 08-10-2024 Urine Glucose (UA) Normal mg/dl Normal [facility] Ketones Test strip Ql (U)Ord ered By: Annetta Mar on 08-10-2024 Ketones Ql (U) Negative Negative [facility] Magnesiumon 08-10-2024 Magnesium [Mass/Vol] 1.8 mg/dL Normal 1.5-2.2 [facility] Comment on above: Performed By: #### L 501.2300, L500.2500, L501.5200, L100.0100 #### [facility] [address] [place], [place], [address] Microscopic analysis of urin e for red blood cells (RBC)Ordered By: Annetta Mar on 08-10-2024 Microscopic analysis of urine for red blood cells (RBC) 0 SEEN /hpf 0-5 [facility] Urine RBC 0 SEEN /hpf 0-5 [facility] Mucus LM Ql (Urine sed)Order ed By: Annetta Mar on 08-10-2024 Mucus Ql (Urine sed) 0 SEEN /hpf [facility] Nitrite Test strip Ql (U)Ord ered By: Annetta Mar on 08-10-2024 Nitrite Ql (U) Negative Negative [facility] Phosphoruson 08-10-2024 Phosphate [Mass/Vol] 5.2 mg/dL High 2.7-4.5 [facility] Comment on above: Performed By: #### L 501.2300, L500.2500, L501.5200, L100.0100 #### [facility] [address] [place], [address] Protein Test strip Ql (U)Ord ered By: Annetta Mar on 08-10-2024 Protein Ql (U) 15 mg/dl High Negative [facility] Prothrombin Time w/INRon INR Coag (PPP) [Relative time] 4.5 {INR} Invalid Interpretation Code [facility] Comment on above: Order Comment: CRITI YOBANY VALUE CALLED TO [facility]08/10/24 08Kerwin Rios.RESULTS READ BACK BY SAME. Performed By: #### L 501.2300, L500.2500, L501.5200, L100.0100 #### [facility] [address] [place], [address] PT Coag (PPP) [Time] 43.9 s High 11.7-14.9 [facility] Comment on above: Order Comment: CRITI YOBANY VALUE CALLED TO [facility]08/10/24 0820 Chantell Rios.RESULTS READ BACK BY SAME. Performed By: #### L 501.2300, L500.2500, L501.5200, L100.0100 #### [facility] [address] [place], [address] Random urine creatinine brian urement (mass/volume)Ordered By: Annetta Mar on 08-10-2024 Creatinine Unsp time (U) [Mass/Vol] 82.00 mg/dL 39.00-259. 00 [facility] Sodium (U) [Moles/Vol]Ordere d By: Annetta Mar on 08-10-2024 Urine Random Sodium < 20 mmol/L Not Establ. [facility] Squamous epithelial cells de tection in urine sediment by light microscopyOrdered By: Annetta Mar on 08-10-2024 Epithelial cells.squamous LM Ql (Urine sed) 0 SEEN /hpf 0-5 [facility] Urine blood detectionOrdered By: Annetta Mar on 08-10-2024 Urine Occult Blood Negative Negative [facility] Urine clarityOrdered By: Tamica Mar on 08-10-2024 Clarity (U) Clear Clear [facility] Urine color determinationOrd ered By: Annetta Mar on 08-10-2024 Color (U) Yellow Yellow [facility] Urine glucose detectionOrder ed By: Annetta Mar on 08-10-2024 Glucose Ql (U) Normal mg/dl Normal [facility] Urine leukocyte esterase det ection by dipstickOrdered By: Annetta Mar on 08-10-2024 Leukocyte esterase Test strip Ql (U) 25 /ul High Negative [facility] Urine pHOrdered By: Annetta Mar on 08-10-2024 pH (U) 6.0 [pH] 5.0 - 8.0 [facility] Urine sediment bacteria coun t by microscopy (number/high power field)Ordered By: Annetta Mar on 08-10-2024 Bacteria LM.HPF (Urine sed) [#/Area] 0 /[HPF] None Seen [facility] Urine sodium measurement (mo les/volume)Ordered By: Annetta Mar on 08-10-2024 Sodium (U) [Moles/Vol] mmol/L Not Establ. [facility] Urine specific gravity measu rementOrdered By: Annetta Mar on 08-10-2024 Specific gravity (U) [Rel density] 1.010 1.002-1.03 0 [facility] Urine urobilinogen measureme ntOrdered By: Annetta Mar on 08-10-2024 Urobilinogen Ql (U) Normal mg/dl Normal [facility] Urobilinogen Ql (U)Ordered B y: Annetta Mar on 08-10-2024 Urine Urobilinogen Normal mg/dl Normal [facility] White blood cell countOrdere d By: Annetta Mar on 08-10-2024 Urine WBC 0 SEEN /hpf 0-5 [facility] White blood cell count 0 SEEN /hpf 0-5 [facility] Basic Metabolic Profile (BMP )on 08-09-2024 BUN/CRE 15.1 RATIO Normal 10-20 [facility] Comment on above: Performed By: #### L 501.2300, L500.2500, L501.5200, L100.0100 #### [facility] [address] [place], [address] Calcium [Mass/Vol] 8.2 mg/dL Normal 7.6-11.0 [facility] Comment on above: Performed By: #### L 501.2300, L500.2500, L501.5200, L100.0100 #### [facility] [address] [place], [address] Chloride [Moles/Vol] 99 mmol/L Normal 98-108 [facility] Comment on above: Performed By: #### L 501.2300, L500.2500, L501.5200, L100.0100 #### [facility] [address] [place], [address] CO2 [Moles/Vol] 17.5 mmol/L Low 21.0-32.0 [facility] Comment on above: Performed By: #### L 501.2300, L500.2500, L501.5200, L100.0100 #### [facility] [address] [place], [address] Creatinine [Mass/Vol] 1.73 mg/dL High 0.70-1.20 [facility] Comment on above: Performed By: #### L 501.2300, L500.2500, L501.5200, L100.0100 #### [facility] [address] [place], [address] ECRCL 67.35 ml/min Normal 50-250 [facility] Comment on above: Performed By: #### L 501.2300, L500.2500, L501.5200, L100.0100 #### [facility] [address] [place], [address] GAP 13 Normal 5-15 [facility] Comment on above: Performed By: #### L 501.2300, L500.2500, L501.5200, L100.0100 #### [facility] [address] [place], [address] GFR/1.73 sq M.predicted among non-blacks MDRD (S/P/Bld) [Vol rate/Area] 45 mL/min/{1.73_m2} Low >60 [facility] Comment on above: Result Comment: mL/m in/1.73m2 CKD-EPI Creatinine Equation (2020) Performed By: #### L 501.2300, L500.2500, L501.5200, L100.0100 #### [facility] [address] [place], [address] Glucose [Mass/Vol] 193 mg/dL High 70-99 [facility] Comment on above: Performed By: #### L 501.2300, L500.2500, L501.5200, L100.0100 #### [facility] [address] [place], [address] Potassium [Moles/Vol] 3.5 mmol/L Normal 3.3-5.1 [facility] Comment on above: Performed By: #### L 501.2300, L500.2500, L501.5200, L100.0100 #### [facility] [address] [place], [address] Sodium [Moles/Vol] 130 mmol/L Low 133-145 [facility] Comment on above: Performed By: #### L 501.2300, L500.2500, L501.5200, L100.0100 #### [facility] [address] [place], [address] Urea nitrogen [Mass/Vol] 26 mg/dL High 4-19 [facility] Comment on above: Performed By: #### L 501.2300, L500.2500, L501.5200, L100.0100 #### [facility] [address] [place], [address] BUN/CRE 12.7 RATIO Normal 10-20 [facility] Comment on above: Performed By: #### L 501.080 #### [facility] [address] [place], [address] Calcium [Mass/Vol] 8.4 mg/dL Normal 7.6-11.0 [facility] Comment on above: Performed By: #### L 501.080 #### [facility] [address] [place], [address] Chloride [Moles/Vol] 97 mmol/L Low 98-108 [facility] Comment on above: Performed By: #### L 501.080 #### [facility] [address] [place], [address] CO2 [Moles/Vol] 18.8 mmol/L Low 21.0-32.0 [facility] Comment on above: Performed By: #### L 501.080 #### [facility] [address] [place], [address] Creatinine [Mass/Vol] 1.94 mg/dL High 0.70-1.20 [facility] Comment on above: Performed By: #### L 501.080 #### [facility] [address] [place], [address] ECRCL 61.31 ml/min Normal 50-250 [facility] Comment on above: Performed By: #### L 501.080 #### [facility] [address] [place], [address] GAP 15 Normal 5-15 [facility] Comment on above: Performed By: #### L 501.080 #### [facility] [address] [place], [address] GFR/1.73 sq M.predicted among non-blacks MDRD (S/P/Bld) [Vol rate/Area] 39 mL/min/{1.73_m2} Low >60 [facility] Comment on above: Result Comment: mL/m in/1.73m2 CKD-EPI Creatinine Equation (2020) Performed By: #### L 501.080 #### [facility] [address] [place], [address] Glucose [Mass/Vol] 189 mg/dL High 70-99 [facility] Comment on above: Performed By: #### L 501.080 #### [facility] [address] [place], [address] Potassium [Moles/Vol] 3.5 mmol/L Normal 3.3-5.1 [facility] Comment on above: Performed By: #### L 501.080 #### [facility] [address] [place], [address] Sodium [Moles/Vol] 131 mmol/L Low 133-145 [facility] Comment on above: Performed By: #### L 501.080 #### [facility] [address] [place], [address] Urea nitrogen [Mass/Vol] 25 mg/dL High 4-19 [facility] Comment on above: Performed By: #### L 501.080 #### [facility] [address] [place], [address] Bedside Glucoseon 08-09-2024 FINGERSTICK GLU 233 mg/dL High 74-106 [facility] Comment on above: Result Comment: NYASIA GEMENT OF PATIENT CARE PER NURSING PROTOCOL Performed By: #### L 100.0100, L500.4050, L501.2450 #### [facility] [address] [place], [address] FINGERSTICK GLU 177 mg/dL High 74-106 [facility] Comment on above: Result Comment: NYASIA GEMENT OF PATIENT CARE PER NURSING PROTOCOL Performed By: #### L 100.0100, L500.4050, L501.2450 #### [facility] [address] [place], [address] FINGERSTICK GLU 179 mg/dL High 74-106 [facility] Comment on above: Result Comment: NYASIA GEMENT OF PATIENT CARE PER NURSING PROTOCOL Performed By: #### L 100.0100, L500.4050, L501.2450 #### [facility] [address] [place], [address] FINGERSTICK GLU 204 mg/dL High 74-106 [facility] Comment on above: Result Comment: NYASIA GEMENT OF PATIENT CARE PER NURSING PROTOCOL Performed By: #### L 100.1300 #### [facility] [address] [place], [address] Blood promyelocytes/100 leuk ocytesOrdered By: Annetta Mar on 08-09-2024 Promyelocytes/100 WBC (Bld) 1 % High 0-0 [facility] MR/CON.PCM.GIon 08-09-2024 MR/CON.PCM.GI [facility] Medical Records Department [address] [place] [address] Consultation - GI 08/09/242205 MR#: [id number] Acct: [id number] Name: PEDRO KARIMI Rep #: [id number] : 1965 58 From: Bipin Brito DO PCP: Dr. Margot Mai MD Status:ADM [facility] Consult Data Date of Consult: 08/09/24 HPI Narrative Reason for Consultation: Diarrhea HPI Narrative: PEDRO KARIMI, is a 58 M presented for evaluation of nausea, vomiting, diarrhea. Patient states on he ate an egg which he believes was bad as it tasted gross. 3 days ago he developed nonbloody diarrhea. Patient states it has become more dark in color today. He denies any recent antibiotic use. Patient states he is having some nausea and nonbloody emesis today. His last colonoscopy by Dr. Tamayo in May 2022. In the ER he was noted to have supratherapeutic INR of 5.3 secondary to warfarin causing Bloody Diarrhea followed by a CT scan of the abdomen pelvis with IV contrast that revealed limited examination due to contrast bolus timing with increased density within the small bowel and large bowel which may represent areas of active bleeding with GI input recommended. Stool studies - negative for Cdiff and enteric pathogens I was asked to see him because of persistent diarrhea [facility] History Wears glasses MRSA infection Insulin dependent diabetes mellitus Restless legs Former smoker CPAP (continuous positive airway pressure) dependence Sleep apnea History of echocardiogram Cardiology follow-up encounter History of atrial fibrillation Hx of colonic polyps Non-ischemic cardiomyopathy HFrEF (heart failure with reduced ejection fraction) 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 Essential 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 Atrial fibrillation with rapid ventricular response MARIELLA (obstructive sleep apnea) Diabetes COPD (chronic obstructive pulmonary disease) Home Medications ???Medication ???Instructions ???Recorded ???Last Taken ???Type bupropion HCl 150 mg tablet,12 hr 150 mg PO BID antidepressant 08/0205/23/22 History sustained-release metformin 1,000 mg tablet 1,000 mg PO BID dm 08/14/21 History lisinopril 2.5 mg tablet 2.5 mg PO DAILY 05/22/22 05/24/22 History insulin glargine 100 unit/mL (3 30 unit subcut BID 05/17/23 Unknow n History mL) subcutaneous pen (Lantus Solostar U-100 Insulin) diltiazem HCl 120 mg 120 mg PO DAILY #90 caps 09/24/23 Unknown Rx capsule,extended release 24 hr spironolactone 25 mg tablet See Rx Instructions .Route 4 Unknown Rx .COMPLEX #30 tabs potassium chloride 10 mEq 10 meq PO DAILY #90 tabs 07/18/24 Unknown Rx tablet,extended release furosemide 40 mg tablet 80 mg PO DAILY 08/05/24 Unknown Hi story metoprolol tartrate 75 mg tablet 75 mg PO Q12H 08/05/24 Unknown His tory warfarin 2 mg tablet 2 mg PO WETH 08/05/24 Unknown Hist ory warfarin 5 mg tablet 10 mg PO DAILY 08/05/24 Unknown Hi story Allergy/AdvReac Type Severity Reaction Status Date / Time Penicillins Allergy PT UNSURE Verified 08/05/24 20:31 OF REACTION Family History Other COPD (chronic obstructive pulmonary disease) Colon cancer Heart disease Lung cancer Testicular cancer Surgical History History of cardiac catheterization Status post cryoablation of arrhythmia (03/01/22) History of cardioversion (10/27/21) Bunion H/O hernia repair Social History Smoking Status: Former smoker alcohol intake: never substance use type: does not use caffeine: Yes Type: coffee Number of servings: 1 ROS ROS Narrative Review of Systems: Constitutional: Patient denies fever or chills. Eyes: Patient denies changes in vision or discharge from eyes. ENT: Patient denies runny nose, sore throat or ear pain. Resp: Patient denies shortness of breath or cough. CV: Patient denies chest pain, palpitations, heart racing or lower extremity edema. GI: Patient admits to mild epigastric abdominal pain with nausea and bilious emesis in addition to bloody diarrhea with dark stools as per HPI. : Patient denies dysuria or hematuria. MSK: Patient denies arthralgias or myalgias. Skin: Patient denies rash, abscess, wounds or jaundice. Psych: Patient denies symptoms of uncontrolled depression or anxiety. Neuro: Patient denies headache, paresthesias or focal neurologic deficits. Allergy: Patient denies lip swelling, tongue swelling or urticaria. Hematology: Patient admits to bloody diarrhea as per HPI. Endocrinology: Patient denies polyuria, polydipsia, po (more content not included)... Normal [facility] Manual nucleated erythrocyte s countOrdered By: Annetta Mar on 08-09-2024 Nucleated Red Blood Cells/100 WBC 1 % 0-5 [facility] Promyelocytes/100 WBC (Bld)O rdered By: Annetta Mar on 08-09-2024 Promyelocytes % 1 % High 0-0 [facility] Prothrombin Time w/INRon INR Coag (PPP) [Relative time] 5.2 {INR} Invalid Interpretation Code [facility] Comment on above: Order Comment: CRITI YOBANY VALUE CALLED TO [facility]08/09/24 Raz Rios.RESULTS READ BACK BY SAME. Performed By: #### L 501.080 #### [facility] [address] [place], [address] PT Coag (PPP) [Time] 49.0 s High 11.7-14.9 [facility] Comment on above: Order Comment: CRITI YOBANY VALUE CALLED TO [facility]08/09/24 0859 Chantell Rios.RESULTS READ BACK BY SAME. Performed By: #### L 501.080 #### [facility] [address] [place], [place], [id number] Bedside Glucoseon 08-08-2024 FINGERSTICK GLU 249 mg/dL High 74-106 [facility] Comment on above: Result Comment: NYASIA JANINEENT OF PATIENT CARE PER NURSING PROTOCOL Performed By: #### L 100.0100, L500.4050, L501.2450 #### [facility] [address] [place], [address] FINGERSTICK GLU 189 mg/dL High 74-106 [facility] Comment on above: Result Comment: NYASIA GEMENT OF PATIENT CARE PER NURSING PROTOCOL Performed By: #### L 100.0100, L500.4050, L501.2450 #### [facility] [address] [place], [address] FINGERSTICK GLU 229 mg/dL High 74-106 [facility] Comment on above: Result Comment: NYASIA GEMENT OF PATIENT CARE PER NURSING PROTOCOL Performed By: #### L 501.2300, L500.2500, L501.5200, L100.0100 #### [facility] [address] [place], [address] FINGERSTICK GLU 190 mg/dL High 74-106 [facility] Comment on above: Result Comment: NYASIA GEMENT OF PATIENT CARE PER NURSING PROTOCOL Performed By: #### L 100.0100, L500.4050, L501.2450 #### [facility] [address] [place], [address] Blood polychromasia detectio n by light microscopyOrdered By: Annetta Mar on 08-08-2024 Polychromasia LM Ql (Bld) 1+ [facility] CBC W/Diff, Automatedon 07-13 Absolute Lymph 3.03 X10 3/uL Normal 0.83-4.51 [facility] Comment on above: Performed By: #### L 100.0100, L500.4050, L501.2450 #### [facility] [address] [place], [address] Absolute Neut 7.4 X10 3/uL Normal 2.0-7.7 [facility] Comment on above: Performed By: #### L 100.0100, L500.4050, L501.2450 #### [facility] [address] [place], [address] CRPon 08-08-2024 C-REACTIVE PROT 9.20 mg/L High 0.0-3.0 [facility] Comment on above: Performed By: #### L 501.2300, L500.2500, L501.5200, L100.0100 #### [facility] [address] [place], [address] Comprehensive Metabolic Prof ilon 08-08-2024 Albumin [Mass/Vol] 3.4 g/dL Low 3.5-5.0 [facility] Comment on above: Performed By: #### L 100.0100, L500.4050, L501.2450 #### [facility] [address] [place], [address] Albumin/Globulin [Mass ratio] 1.2 {ratio} Normal 0.9-2.4 [facility] Comment on above: Performed By: #### L 100.0100, L500.4050, L501.2450 #### [facility] [address] [place], [address] ALK PHOS 102 U/L Normal 40-129 [facility] Comment on above: Performed By: #### L 100.0100, L500.4050, L501.2450 #### [facility] [address] [place], [address] ALT [Catalytic activity/Vol] 7 U/L Normal <=46 [facility] Comment on above: Performed By: #### L 100.0100, L500.4050, L501.2450 #### [facility] [address] [place], [address] AST [Catalytic activity/Vol] 11 U/L Normal <=37 [facility] Comment on above: Performed By: #### L 100.0100, L500.4050, L501.2450 #### [facility] [address] [place], [address] Bilirubin [Mass/Vol] 0.21 mg/dL Normal 0.00-1.30 [facility] Comment on above: Performed By: #### L 100.0100, L500.4050, L501.2450 #### [facility] [address] [place], [address] BUN/CRE 12.8 RATIO Normal 10-20 [facility] Comment on above: Performed By: #### L 100.0100, L500.4050, L501.2450 #### [facility] [address] [place], [address] Calcium [Mass/Vol] 8.4 mg/dL Normal 7.6-11.0 [facility] Comment on above: Performed By: #### L 100.0100, L500.4050, L501.2450 #### [facility] [address] [place], [address] Chloride [Moles/Vol] 105 mmol/L Normal 98-108 [facility] Comment on above: Performed By: #### L 100.0100, L500.4050, L501.2450 #### [facility] [address] [place], [address] CO2 [Moles/Vol] 16.8 mmol/L Low 21.0-32.0 [facility] Comment on above: Performed By: #### L 100.0100, L500.4050, L501.2450 #### [facility] [address] [place], [address] Creatinine [Mass/Vol] 1.00 mg/dL Normal 0.70-1.20 [facility] Comment on above: Performed By: #### L 100.0100, L500.4050, L501.2450 #### [facility] [address] [place], [address] ECRCL 118.95 ml/min Normal 50-250 [facility] Comment on above: Performed By: #### L 100.0100, L500.4050, L501.2450 #### [facility] [address] [place], [address] GAP 12 Normal 5-15 [facility] Comment on above: Performed By: #### L 100.0100, L500.4050, L501.2450 #### [facility] [address] [place], [address] GFR/1.73 sq M.predicted among non-blacks MDRD (S/P/Bld) [Vol rate/Area] 87 mL/min/{1.73_m2} Normal >60 [facility] Comment on above: Result Comment: mL/m in/1.73m2 CKD-EPI Creatinine Equation (2020) Performed By: #### L 100.0100, L500.4050, L501.2450 #### [facility] [address] [place], [address] Globulin (S) [Mass/Vol] 2.8 g/dL Normal 2.2-4.2 [facility] Comment on above: Performed By: #### L 100.0100, L500.4050, L501.2450 #### [facility] [address] [place], [address] Glucose [Mass/Vol] 191 mg/dL High 70-99 [facility] Comment on above: Performed By: #### L 100.0100, L500.4050, L501.2450 #### [facility] [address] [place], [address] Potassium [Moles/Vol] 3.9 mmol/L Normal 3.3-5.1 [facility] Comment on above: Performed By: #### L 100.0100, L500.4050, L501.2450 #### [facility] [address] [place], [address] Sodium [Moles/Vol] 133 mmol/L Normal 133-145 [facility] Comment on above: Performed By: #### L 100.0100, L500.4050, L501.2450 #### [facility] [address] [place], [address] T PROT 6.2 g/dL Normal 5.9-8.4 [facility] Comment on above: Performed By: #### L 100.0100, L500.4050, L501.2450 #### [facility] [address] [place], [address] Urea nitrogen [Mass/Vol] 13 mg/dL Normal 4-19 [facility] Comment on above: Performed By: #### L 100.0100, L500.4050, L501.2450 #### [facility] [address] [place], [address] Erythrocyte Sed Rateon 08-08 SED RATE 12 mm/hr Normal 0-20 [facility] Comment on above: Performed By: #### L 501.2300, L500.2500, L501.5200, L100.0100 #### [facility] [address] [place], [address] Phosphoruson 08-08-2024 Phosphate [Mass/Vol] 3.4 mg/dL Normal 2.7-4.5 [facility] Comment on above: Performed By: #### L 100.0100, L500.4050, L501.2450 #### [facility] [address] [place], [address] Polychromasia LM Ql (Bld)Ord ered By: Annetta Mar on 08-08-2024 Polychromasia 1+ [facility] Prothrombin Time w/INRon INR Coag (PPP) [Relative time] 5.9 {INR} Invalid Interpretation Code [facility] Comment on above: Result Comment: CRIT ICAL VALUE CALLED TO MYRIAM SAVAGE ([facility]) 08/08/24 0856 Lucas Lovett. RESULTS READ BACK BY SAME. Performed By: #### L 100.0100, L500.4050, L501.2450 #### [facility] [address] [place], [address] PT Coag (PPP) [Time] 54.0 s High 11.7-14.9 [facility] Comment on above: Performed By: #### L 100.0100, L500.4050, L501.2450 #### [facility] [address] [place], [address] Basic Metabolic Profile (BMP )on 08-07-2024 BUN/CRE 17.6 RATIO Normal 10-20 [facility] Comment on above: Performed By: #### L 501.2300, L500.2500, L501.5200, L100.0100 #### [facility] [address] [place], [address] Calcium [Mass/Vol] 7.3 mg/dL Low 7.6-11.0 [facility] Comment on above: Performed By: #### L 501.2300, L500.2500, L501.5200, L100.0100 #### [facility] [address] [place], [address] Chloride [Moles/Vol] 107 mmol/L Normal 98-108 [facility] Comment on above: Performed By: #### L 501.2300, L500.2500, L501.5200, L100.0100 #### [facility] [address] [place], [address] CO2 [Moles/Vol] 18.4 mmol/L Low 21.0-32.0 [facility] Comment on above: Performed By: #### L 501.2300, L500.2500, L501.5200, L100.0100 #### [facility] [address] [place], [address] Creatinine [Mass/Vol] 0.76 mg/dL Normal 0.70-1.20 [facility] Comment on above: Performed By: #### L 501.2300, L500.2500, L501.5200, L100.0100 #### [facility] [address] [place], [address] ECRCL 156.27 ml/min Normal 50-250 [facility] Comment on above: Performed By: #### L 501.2300, L500.2500, L501.5200, L100.0100 #### [facility] [address] [place], [address] GAP 10 Normal 5-15 [facility] Comment on above: Performed By: #### L 501.2300, L500.2500, L501.5200, L100.0100 #### [facility] [address] [place], [address] GFR/1.73 sq M.predicted among non-blacks MDRD (S/P/Bld) [Vol rate/Area] 104 mL/min/{1.73_m2} Normal >60 [facility] Comment on above: Result Comment: mL/m in/1.73m2 CKD-EPI Creatinine Equation (2020) Performed By: #### L 501.2300, L500.2500, L501.5200, L100.0100 #### [facility] [address] [place], [address] Glucose [Mass/Vol] 196 mg/dL High 70-99 [facility] Comment on above: Performed By: #### L 501.2300, L500.2500, L501.5200, L100.0100 #### [facility] [address] [place], [address] Potassium [Moles/Vol] 3.4 mmol/L Normal 3.3-5.1 [facility] Comment on above: Performed By: #### L 501.2300, L500.2500, L501.5200, L100.0100 #### [facility] [address] [place], [address] Sodium [Moles/Vol] 135 mmol/L Normal 133-145 [facility] Comment on above: Performed By: #### L 501.2300, L500.2500, L501.5200, L100.0100 #### [facility] [address] [place], [address] Urea nitrogen [Mass/Vol] 13 mg/dL Normal 4-19 [facility] Comment on above: Performed By: #### L 501.2300, L500.2500, L501.5200, L100.0100 #### [facility] [address] [place], [address] Bedside Glucoseon 08-07-2024 FINGERSTICK GLU 163 mg/dL High 74-106 [facility] Comment on above: Result Comment: NYASIA GEMENT OF PATIENT CARE PER NURSING PROTOCOL Performed By: #### L 501.2300, L500.2500, L501.5200, L100.0100 #### [facility] [address] [place], [address] FINGERSTICK GLU 182 mg/dL High 74-106 [facility] Comment on above: Result Comment: NYASIA GEMENT OF PATIENT CARE PER NURSING PROTOCOL Performed By: #### L 501.2300, L500.2500, L501.5200, L100.0100 #### [facility] [address] [place], [address] FINGERSTICK GLU 180 mg/dL High 74-106 [facility] Comment on above: Result Comment: NYASIA GEMENT OF PATIENT CARE PER NURSING PROTOCOL Performed By: #### L 501.2300, L500.2500, L501.5200, L100.0100 #### [facility] [address] [place], [address] FINGERSTICK GLU 191 mg/dL High 74-106 [facility] Comment on above: Result Comment: NYASIA GEMENT OF PATIENT CARE PER NURSING PROTOCOL Performed By: #### L 501.080 #### [facility] [address] [place], [address] Blood leukocytes other/100 l eukocytesOrdered By: Annetta Mar on 08-07-2024 WBC other/100 WBC (Bld) 3 % [facility] Magnesiumon 08-07-2024 Magnesium [Mass/Vol] 1.9 mg/dL Normal 1.5-2.2 [facility] Comment on above: Performed By: #### L 501.2300, L500.2500, L501.5200, L100.0100 #### [facility] [address] [place], [address] Phosphoruson 08-07-2024 Phosphate [Mass/Vol] 2.2 mg/dL Low 2.7-4.5 [facility] Comment on above: Performed By: #### L 501.2300, L500.2500, L501.5200, L100.0100 #### [facility] [address] [place], [address] Prothrombin Time w/INRon PT Coag (PPP) [Time] 68.7 s High 11.7-14.9 [facility] Comment on above: Result Comment: CRIT ICAL VALUE CALLED TO STAN 08/07/24 0856 Chantell Rios. RESULTS READ BACK BY NEIL. Performed By: #### L 100.0100, L500.4050, L501.2450 #### [facility] [address] [place], [address] INR Coag (PPP) [Relative time] 8.0 {INR} Invalid Interpretation Code [facility] Comment on above: Performed By: #### L 100.0100, L500.4050, L501.2450 #### [facility] [address] [place], [address] WBC other/100 WBC (Bld)Order ed By: Annetta Mar on 08-07-2024 Other Cells % 3 % [facility] Bedside Glucoseon 08-06-2024 FINGERSTICK GLU 195 mg/dL High 74-106 [facility] Comment on above: Result Comment: NYASIA GEMENT OF PATIENT CARE PER NURSING PROTOCOL Performed By: #### L 501.2300, L500.2500, L501.5200, L100.0100 #### [facility] [address] [place], [address] FINGERSTICK GLU 207 mg/dL High 74-106 [facility] Comment on above: Result Comment: NYASIA GEMENT OF PATIENT CARE PER NURSING PROTOCOL Performed By: #### L 501.080 #### [facility] [address] [place], [address] FINGERSTICK GLU 196 mg/dL High 74-106 [facility] Comment on above: Result Comment: NYASIA GEMENT OF PATIENT CARE PER NURSING PROTOCOL Performed By: #### L 501.2300, L500.2500, L501.5200, L100.0100 #### [facility] [address] [place], [address] C. difficile DNA CLEMENT+probe Q l (Unsp spec)Ordered By: Yfn Keyes on 08-06-2024 Clostridioides difficile (PCR) [facility] CBC W/Diff, Automatedon 07-13 Absolute Lymph 0.90 X10 3/uL Normal 0.83-4.51 [facility] Comment on above: Performed By: #### L 501.2300, L500.2500, L501.5200, L100.0100 #### [facility] [address] [place], [address] Absolute Neut 3.6 X10 3/uL Normal 2.0-7.7 [facility] Comment on above: Performed By: #### L 501.2300, L500.2500, L501.5200, L100.0100 #### [facility] [address] [place], [address] BAND 18 High 0-5 [facility] Comment on above: Performed By: #### L 501.2300, L500.2500, L501.5200, L100.0100 #### [facility] [address] [place], [address] Eosinophils/100 WBC (Bld) 7 % High 0-5 [facility] Comment on above: Performed By: #### L 501.2300, L500.2500, L501.5200, L100.0100 #### [facility] [address] [place], [address] Lymphocytes (Bld) [#/Vol] 15 10*3/uL Low 19-41 [facility] Comment on above: Performed By: #### L 501.2300, L500.2500, L501.5200, L100.0100 #### [facility] [address] [place], [address] META 7 High 0-1 [facility] Comment on above: Performed By: #### L 501.2300, L500.2500, L501.5200, L100.0100 #### [facility] [address] [place], [address] Metamyelocytes/100 WBC (Bld) 1 % High 0-0 [facility] Comment on above: Performed By: #### L 501.2300, L500.2500, L501.5200, L100.0100 #### [facility] [address] [place], [address] MONOCYTE 11 High 0-10 [facility] Comment on above: Performed By: #### L 501.2300, L500.2500, L501.5200, L100.0100 #### [facility] [address] [place], [address] SEGS 41 Low 47-70 [facility] Comment on above: Performed By: #### L 501.2300, L500.2500, L501.5200, L100.0100 #### [facility] [address] [place], [address] TOTAL CELLS 100 Normal MANUAL DIFF [facility] Comment on above: Performed By: #### L 501.2300, L500.2500, L501.5200, L100.0100 #### [facility] [address] [place], [address] CDIFF (PCR)on 08-06-2024 CDIFF Is the patient receiving laxatives? N New/unexplained onset of 3 or more stools in past 24 hrs? Y Pending 027 027 NAP1-B1 Presumptive Negative *for epidemiolologic???use C. Diff PCR Negative- No toxigenic C. Diff Detected Normal [facility] Comment on above: Performed By: #### L 100.0100, L500.4050, L501.2450 #### [facility] [address] [place], [address] Clostridium difficile detect ion by polymerase chain reactionOrdered By: Yfn Keyes on 08-06-2024 C. difficile DNA CLEMENT+probe Ql (Unsp spec) [facility] Comprehensive Metabolic Prof ilon 08-06-2024 Albumin [Mass/Vol] 3.0 g/dL Low 3.5-5.0 [facility] Comment on above: Performed By: #### L 501.2300, L500.2500, L501.5200, L100.0100 #### [facility] [address] [place], [address] Albumin/Globulin [Mass ratio] 1.4 {ratio} Normal 0.9-2.4 [facility] Comment on above: Performed By: #### L 501.2300, L500.2500, L501.5200, L100.0100 #### [facility] [address] [place], [address] ALK PHOS 75 U/L Normal 40-129 [facility] Comment on above: Performed By: #### L 501.2300, L500.2500, L501.5200, L100.0100 #### [facility] [address] [place], [address] ALT [Catalytic activity/Vol] 6 U/L Normal <=46 [facility] Comment on above: Performed By: #### L 501.2300, L500.2500, L501.5200, L100.0100 #### [facility] [address] [place], [address] AST [Catalytic activity/Vol] 11 U/L Normal <=37 [facility] Comment on above: Performed By: #### L 501.2300, L500.2500, L501.5200, L100.0100 #### [facility] [address] [place], [address] Bilirubin [Mass/Vol] 0.24 mg/dL Normal 0.00-1.30 [facility] Comment on above: Performed By: #### L 501.2300, L500.2500, L501.5200, L100.0100 #### [facility] [address] [place], [address] BUN/CRE 22.2 RATIO High 10-20 [facility] Comment on above: Performed By: #### L 501.2300, L500.2500, L501.5200, L100.0100 #### [facility] [address] [place], [address] Calcium [Mass/Vol] 7.2 mg/dL Low 7.6-11.0 [facility] Comment on above: Performed By: #### L 501.2300, L500.2500, L501.5200, L100.0100 #### [facility] [address] [place], [address] Chloride [Moles/Vol] 106 mmol/L Normal 98-108 [facility] Comment on above: Performed By: #### L 501.2300, L500.2500, L501.5200, L100.0100 #### [facility] [address] [place], [address] CO2 [Moles/Vol] 16.8 mmol/L Low 21.0-32.0 [facility] Comment on above: Performed By: #### L 501.2300, L500.2500, L501.5200, L100.0100 #### [facility] [address] [place], [address] Creatinine [Mass/Vol] 0.80 mg/dL Normal 0.70-1.20 [facility] Comment on above: Performed By: #### L 501.2300, L500.2500, L501.5200, L100.0100 #### [facility] [address] [place], [address] ECRCL 148.00 ml/min Normal 50-250 [facility] Comment on above: Performed By: #### L 501.2300, L500.2500, L501.5200, L100.0100 #### [facility] [address] [place], [address] GAP 11 Normal 5-15 [facility] Comment on above: Performed By: #### L 501.2300, L500.2500, L501.5200, L100.0100 #### [facility] [address] [place], [address] GFR/1.73 sq M.predicted among non-blacks MDRD (S/P/Bld) [Vol rate/Area] 103 mL/min/{1.73_m2} Normal >60 [facility] Comment on above: Result Comment: mL/m in/1.73m2 CKD-EPI Creatinine Equation (2020) Performed By: #### L 501.2300, L500.2500, L501.5200, L100.0100 #### [facility] [address] [place], [address] Globulin (S) [Mass/Vol] 2.2 g/dL Normal 2.2-4.2 [facility] Comment on above: Performed By: #### L 501.2300, L500.2500, L501.5200, L100.0100 #### [facility] [address] [place], [address] Glucose [Mass/Vol] 171 mg/dL High 70-99 [facility] Comment on above: Performed By: #### L 501.2300, L500.2500, L501.5200, L100.0100 #### [facility] [address] [place], [address] Potassium [Moles/Vol] 3.5 mmol/L Normal 3.3-5.1 [facility] Comment on above: Performed By: #### L 501.2300, L500.2500, L501.5200, L100.0100 #### [facility] [address] [place], [address] Sodium [Moles/Vol] 133 mmol/L Normal 133-145 [facility] Comment on above: Performed By: #### L 501.2300, L500.2500, L501.5200, L100.0100 #### [facility] [address] [place], [address] T PROT 5.2 g/dL Low 5.9-8.4 [facility] Comment on above: Performed By: #### L 501.2300, L500.2500, L501.5200, L100.0100 #### [facility] [address] [place], [address] Urea nitrogen [Mass/Vol] 18 mg/dL Normal 4-19 [facility] Comment on above: Performed By: #### L 501.2300, L500.2500, L501.5200, L100.0100 #### [facility] [address] [place], [address] ENTERIC PATHOGEN PANEL STOOL on 08-06-2024 EP PANEL Normal Reference Ran ge = Not Detected Nucleic acid amplification test method Not detected for Campylobacter group, Salmonella species, Shigella species, Vibrio Group, Yersinia enterocolitica, EHEC (Shiga Toxin 1, Shiga Toxin 2), Norovirus Gl/Gll, and Rotavirus A. Other common stool pathogens are not detected on this panel include: Aeromonas/Plesiomonas or parasites. Order testing for these organisms separately if suspected. This is an amplified DNA test which makes it both specific and sensitive. CAMPYLOBACTER Not Detected Norovirus Not Detected Rotavirus Not Detected Salmonella Not Detected Shiga Toxin Not Detected Shigella sp. Not Detected VIBRIO Not Detected Yersinia Not Detected Normal [facility] Comment on above: Performed By: #### L 100.0100, L500.4050, L501.2450 #### [facility] [address] [place], [address] H AND P Exam - Hospitaliston 08-06-2024 H&P Exam - Hospitalist [facility] Medical Records Department [address] [place] [address] H P Exam - Hospitalist 08/06/24106 MR#: [id number] Acct: [id number] Name: PEDRO KARIMI Rep #: [id number] : 1965 58 From: Yfn Dietz DO PCP: Dr. Margot Mai MD Status:ADM IN Location: PCU [id number] [facility] - General General Date of Admission: 08/06/24 Date of Service: 08/06/24 Chief Complaint: Nausea, Vomiting and Bloody Diarrhea. HPI Haley KARIMI, is a 58 M with a past medical history of essential 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; on lisinopril, metoprolol, spironolactone and furosemide, obesity; with BMI of 37.1 this admission, MARIELLA; on CPAP, former tobacco abuse, DM-2; of unknown control on metformin and insulin glargine 30 units sq twice daily, history of paroxysmal atrial fibrillation/flutter; with history of failed DCCV (10/2021) and history of cryoablation (02/2022) on diltiazem and warfarin, history of chronic diastolic CHF; with preserved LVEF, history of nonischemic cardiomyopathy, RLS, history of MRSA on extremities (2020), depression; on bupropion twice daily, history of hernia; s/p repair and history of diverticulosis and multiple colon polyps; s/p colonoscopy by Dr. Tamayo in May 2022 who presents to [facility] ER complaining of nausea, vomiting and bloody diarrhea. Mr. Karimi reports his symptoms began 3 days ago after eating egg which tasted terrible with subsequent development of initially nonbloody diarrhea. Then on the evening of August 05, 2024 his stools became more dark in color. He also admits to mild epigastric discomfort due to nausea and bilious emesis earlier today but he denies bloody or coffee-ground emesis. He states he has persistent taste abnormality residual from his recent rotten egg ingestion that has lasted 3 days. He denies recent antibiotic use or known sick contacts. He also denies associated fever, chills, chest pain, palpitations, heart racing shortness of breath, headache or rash. In the ER he was noted to have supratherapeutic INR of 5.3 present on admission with corresponding Hemoccult positive stools due to Adverse Drug Reaction to warfarin causing Bloody Diarrhea followed by a CT scan of the abdomen pelvis with IV contrast that revealed limited examination due to contrast bolus timing with increased density within the small bowel and large bowel which may represent areas of active bleeding with GI input recommended. He was then admitted to the PCU for ongoing care for a stay that is expected to extend beyond 2 midnights. [facility] Medical History Wears glasses MRSA infection Insulin dependent diabetes mellitus Restless legs Former smoker CPAP (continuous positive airway pressure) dependence Sleep apnea History of echocardiogram Cardiology follow-up encounter History of atrial fibrillation Hx of colonic polyps Non-ischemic cardiomyopathy HFrEF (heart failure with reduced ejection fraction) Persistent atrial fibrillation assisted current use of anticoagulant Essential 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 Atrial fibrillation with rapid ventricular response MARIELLA (obstructive sleep apnea) Diabetes COPD (chronic obstructive pulmonary disease) Home Medications ???Medication ???Instructions ???Recorded ???Last Taken ???Type bupropion HCl 150 mg tablet,12 hr 150 mg PO BID antidepressant 08/0205/23/22 History sustained-release metformin 1,000 mg tablet 1,000 mg PO BID dm 08/14/21 History lisinopril 2.5 mg tablet 2.5 mg PO DAILY 05/22/22 05/24/22 History insulin glargine 100 unit/mL (3 30 unit subcut BID 05/17/23 Unknow n History mL) subcutaneous pen (Lantus Solostar U-100 Insulin) diltiazem HCl 120 mg 120 mg PO DAILY #90 caps 09/24/23 Unknown Rx capsule,extended release 24 hr spironolactone 25 mg tablet See Rx Instructions .Route 4 Unknown Rx .COMPLEX #30 tabs potassium chloride 10 mEq 10 meq PO DAILY #90 tabs 07/18/24 Unknown Rx tablet,extended release furosemide 40 mg tablet 80 mg PO DAILY 08/05/24 Unknown Hi story metoprolol tartrate 75 mg tablet 75 mg PO Q12H 08/05/24 Unknown His tory warfarin 2 mg tablet 2 mg PO WETH 08/05/24 Unknown Hist ory warfarin 5 mg tablet 10 mg PO DAILY 08/05/24 Unknown Hi story Allergy/AdvReac Type Severity Reaction Status Date / Time Penicillins Allergy PT UNSURE Verified 08/05/24 20:31 OF REACTION Family History Other COPD (chronic obstructive pulmonary disease) Colon cancer Heart disease Lung cancer Testicular cancer Surgical History History of cardiac catheterization Status post cryoablation of arrhythmia (03/01/22) History of cardioversion (10/27/21) (more content not included)... Normal [facility] Hemoglobinon 08-06-2024 Hemoglobin (Bld) [Mass/Vol] 13.2 g/dL Normal 13.0-16. 5 [facility] Comment on above: Performed By: #### L 100.1300 #### [facility] [address] [place], [address] Hemoglobin (Bld) [Mass/Vol] 13.7 g/dL Normal 13.0-16. 5 [facility] Comment on above: Performed By: #### L 100.1300 #### [facility] [address] [place], [address] Hemoglobin (Bld) [Mass/Vol] 14.2 g/dL Normal 13.0-16. 5 [facility] Comment on above: Performed By: #### L 501.2300, L500.2500, L501.5200, L100.0100 #### [facility] [address] [place], [address] Hemoglobin A1con 08-06-2024 HbA1c (Bld) [Mass fraction] 8.2 % Normal <=5.6 [facility] Comment on above: Performed By: #### L 501.2300, L500.2500, L501.5200, L100.0100 #### [facility] [address] [place], [address] Lactic Acidon 08-06-2024 Lactate [Moles/Vol] mmol/L Normal 0.0-2.0 [facility] Comment on above: Order Comment: Y Performed By: #### L 100.1300 #### [facility] [address] [place], [address] Lactoferrin IA Ql (Stl)Order ed By: Yfn Keyes on 08-06-2024 Stool Lactoferrin [facility] Magnesiumon 08-06-2024 Magnesium [Mass/Vol] 1.5 mg/dL Normal 1.5-2.2 [facility] Comment on above: Performed By: #### L 100.1300 #### [facility] [address] [place], [address] Phosphoruson 08-06-2024 Phosphate [Mass/Vol] 2.2 mg/dL Low 2.7-4.5 [facility] Comment on above: Performed By: #### L 501.2300, L500.2500, L501.5200, L100.0100 #### [facility] [address] [place], [address] Prothrombin Time w/INRon INR Coag (PPP) [Relative time] 6.5 {INR} Invalid Interpretation Code [facility] Comment on above: Result Comment: CRIT ICAL VALUE CALLED TO SAMUEL SAVAGE ([facility]) 08/06/24 0958 Lucas Lovett. RESULTS READ BACK BY SAME. Performed By: #### L 501.2300, L500.2500, L501.5200, L100.0100 #### [facility] [address] [place], [address] PT Coag (PPP) [Time] 58.7 s High 11.7-14.9 [facility] Comment on above: Performed By: #### L 501.2300, L500.2500, L501.5200, L100.0100 #### [facility] [address] [place], [address] Stool Lactoferrin/WBCon 07-13 WBCST Is the patient receiving laxatives? N New/unexplained onset of 3 or more stools in past 24 hrs? Y Normal Reference Range = Negative Fecal WBC Lactoferrin Negative: No Fecal WBC Lactoferrin present Normal [facility] Comment on above: Performed By: #### L 100.0100, L500.4050, L501.2450 #### [facility] [address] [place], [address] Stool enteric pathogen panel by probe and target amplification methodOrdered By: Yfn Keyes on 08-06-2024 Enteric Bacteriology [facility] Stool lactoferrin detection by immunoassayOrdered By: Yfn Keyes on 08-06-2024 Lactoferrin IA Ql (Stl) W [facility] Thyroid Stim Hormone (TSH)on 08-06-2024 TSH 4.200 uIU/mL Normal 0.300-4.20 0 [facility] Comment on above: Performed By: #### L 501.2300, L500.2500, L501.5200, L100.0100 #### [facility] [address] [place], [address] Type AND Screenon 08-06-2024 ABO and Rh group Nom (Bld) Blood group A Rh(D) positive Normal [facility] Comment on above: Order Comment: HGI Performed By: #### L 100.1300 #### [facility] [address] [place], [address] Abdomen/Pelvis W IV Cont ONL Yon 08-05-2024 Abdomen/Pelvis W IV Cont ONLY [facility] [address] [place] [address] Abdomen/Pelvis W IV Cont ONLY MR#: [id number] Acct: [id number] Name: PEDRO KARIMI Rep #: [id number] : 1965 M 58 From: Almas Cary i, MD PCP: Dr. Margot Mai MD Status: REG ER Study: Abdomen/Pelvis W IV Cont ONLY Date of Exam: Exam# [id number] Ordering Dr: Jose Juan Gotti DO EXAM: CT of the abdomen and pelvis with IV contrast. CLINICAL HISTORY: GI bleed, diarrhea. COMPARISON: None. TECHNIQUE: CT of the abdomen was performed without IV contrast. Multiplanar reformats were obtained afterwards. FINDINGS: Calcified granuloma seen within the right lower lung zone. Otherwise the lung bases are clear. There is no free air within the abdomen or pelvis. The liver, gallbladder, spleen, adrenals, pancreas are within normal limits. 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 There is no hydronephrosis present. Urinary bladder is within normal limits. The prostate is nonenlarged. There is no bowel obstruction. Area of increased attenuation seen within the small bowel loop within the left lower abdominal quadrant best seen on image 34/158 and image 80/141. Similar-appearing area is also present within the sigmoid colon best seen on image 47/158. These findings may represent areas of active bleeding. The appendix is normal. Abdominal wall mesh is noted. Multilevel degenerative changes seen within the spine. CT/Abdomen/Pelvis W IV Cont ONLY IMPRESSION: Limited examination due to contrast bolus timing. There are areas of increased density within the small bowel and large bowel as described above. These may represent areas of active bleeding. Although multiphase CT scan of the abdomen may be helpful. In addition, nuclear medicine biliary scan may be helpful to delineate the exact location of the bleeding. Recommend GI input. Red Alert: Limited examination due to contrast bolus timing. There are areas of increased density within the small bowel and large bowel as described above. These may represent areas of active bleeding. Although multiphase CT scan of the abdomen may be helpful. In addition, nuclear medicine biliary scan may be helpful to delineate the exact location of the bleeding. Recommend GI input. The critical information above was relayed directly by me by telephone to Jose Juan Gotti on 08/05/2024 at 10:55 pm with readback verification. Reading Location: [id number] CC: Dr. Jose Juan Gotti, DO; Dr. Margot Mai MD Tour Director: Signed Normal [facility] Absolute neutrophil countOrd ered By: Jose Juan Gotti on 08-05-2024 Neutrophils (Bld) [#/Vol] 4.9 10*3/uL 2.0-7.7 [facility] Anion gap in Serum or Plasma Ordered By: Jose Juan Gotti on 08-05-2024 Anion gap [Moles/Vol] 12 mmol/L 5-15 [facility] BUN/creatinine ratioOrdered By: Jose Juan Gotti on 08-05-2024 Urea nitrogen/Creatinine [Mass ratio] 20.0 mg/mg 10-20 [facility] Bilirubin Test strip Ql (U)O rdered By: Jose Juan Gotti on 08-05-2024 Bilirubin Ql (U) Negative Negative [facility] Bilirubin, totalOrdered By: Jose Juan Gotti on 08-05-2024 Bilirubin [Mass/Vol] 0.24 mg/dL 0.00-1.30 [facility] Blood band neutrophil count as percentage of total leukocytesOrdered By: Jose Juan Gotti on 08-05-2024 Band form neutrophils/100 WBC (Bld) 26 % High 0-5 [facility] Blood eosinophils/100 leukoc ytesOrdered By: Jose Juan Gotti on 08-05-2024 Eosinophils/100 WBC (Bld) 2 % 0-5 [facility] Blood lymphocytes/100 leukoc ytesOrdered By: Jose Juan Gotti on 08-05-2024 Lymphocytes/100 WBC (Bld) 20 % 19-41 [facility] Blood metamyelocytes/100 joan kocytesOrdered By: Jose Juan Gotti on 08-05-2024 Metamyelocytes/100 WBC (Bld) 1 % 0-1 [facility] Blood monocytes/100 leukocyt esOrdered By: Jose Juan Gotti on 08-05-2024 Monocytes/100 WBC (Bld) 10 % 0-10 [facility] Carbon dioxide, total [Moles /volume] in Central venous bloodOrdered By: Jose Juan Gotti on 08-05-2024 CO2 [Moles/Vol] 21.5 mmol/L 21.0-32.0 [facility] Cells counted Molgen (Bld/Ti ss) [#]Ordered By: Jose Juan Gotti on 08-05-2024 Differential Total Cells Counted 100 MANUAL DIFF [facility] Chloride assayOrdered By: Luis Antonio Gotti on 03-25-2025 Chloride [Moles/Vol] 100 mmol/L 98-108 [facility] Comprehensive Metabolic Prof ilon 08-05-2024 Albumin [Mass/Vol] 3.6 g/dL Normal 3.5-5.0 [facility] Comment on above: Performed By: #### L 100.0100, L500.4050, L501.2450 #### [facility] [address] [place], [address] Albumin/Globulin [Mass ratio] 1.3 {ratio} Normal 0.9-2.4 [facility] Comment on above: Performed By: #### L 100.0100, L500.4050, L501.2450 #### [facility] [address] [place], [address] ALK PHOS 93 U/L Normal 40-129 [facility] Comment on above: Performed By: #### L 100.0100, L500.4050, L501.2450 #### [facility] [address] [place], [address] ALT [Catalytic activity/Vol] 9 U/L Normal <=46 [facility] Comment on above: Performed By: #### L 100.0100, L500.4050, L501.2450 #### [facility] [address] [place], [address] AST [Catalytic activity/Vol] 12 U/L Normal <=37 [facility] Comment on above: Performed By: #### L 100.0100, L500.4050, L501.2450 #### [facility] [address] [place], [address] Bilirubin [Mass/Vol] 0.24 mg/dL Normal 0.00-1.30 [facility] Comment on above: Performed By: #### L 100.0100, L500.4050, L501.2450 #### [facility] [address] [place], [address] BUN/CRE 20.0 RATIO Normal 10-20 [facility] Comment on above: Performed By: #### L 100.0100, L500.4050, L501.2450 #### [facility] [address] [place], [address] Calcium [Mass/Vol] 7.7 mg/dL Normal 7.6-11.0 [facility] Comment on above: Performed By: #### L 100.0100, L500.4050, L501.2450 #### [facility] [address] [place], [address] Chloride [Moles/Vol] 100 mmol/L Normal 98-108 [facility] Comment on above: Performed By: #### L 100.0100, L500.4050, L501.2450 #### [facility] [address] [place], [address] CO2 [Moles/Vol] 21.5 mmol/L Normal 21.0-32.0 [facility] Comment on above: Performed By: #### L 100.0100, L500.4050, L501.2450 #### [facility] [address] [place], [address] Creatinine [Mass/Vol] 0.96 mg/dL Normal 0.70-1.20 [facility] Comment on above: Performed By: #### L 100.0100, L500.4050, L501.2450 #### [facility] [address] [place], [address] ECRCL 120.72 ml/min Normal 50-250 [facility] Comment on above: Performed By: #### L 100.0100, L500.4050, L501.2450 #### [facility] [address] [place], [address] GAP 12 Normal 5-15 [facility] Comment on above: Performed By: #### L 100.0100, L500.4050, L501.2450 #### [facility] [address] [place], [address] GFR/1.73 sq M.predicted among non-blacks MDRD (S/P/Bld) [Vol rate/Area] 92 mL/min/{1.73_m2} Normal >60 [facility] Comment on above: Result Comment: mL/m in/1.73m2 CKD-EPI Creatinine Equation (2020) Performed By: #### L 100.0100, L500.4050, L501.2450 #### [facility] [address] [place], [address] Globulin (S) [Mass/Vol] 2.8 g/dL Normal 2.2-4.2 [facility] Comment on above: Performed By: #### L 100.0100, L500.4050, L501.2450 #### [facility] [address] [place], [address] Glucose [Mass/Vol] 200 mg/dL High 70-99 [facility] Comment on above: Performed By: #### L 100.0100, L500.4050, L501.2450 #### [facility] [address] [place], [address] Potassium [Moles/Vol] 3.4 mmol/L Normal 3.3-5.1 [facility] Comment on above: Performed By: #### L 100.0100, L500.4050, L501.2450 #### [facility] [address] [place], [address] Sodium [Moles/Vol] 133 mmol/L Normal 133-145 [facility] Comment on above: Performed By: #### L 100.0100, L500.4050, L501.2450 #### [facility] [address] [place], [address] T PROT 6.5 g/dL Normal 5.9-8.4 [facility] Comment on above: Performed By: #### L 100.0100, L500.4050, L501.2450 #### [facility] [address] [place], [address] Urea nitrogen [Mass/Vol] 19 mg/dL Normal 4-19 [facility] Comment on above: Performed By: #### L 100.0100, L500.4050, L501.2450 #### [facility] [address] [place], [address] Emergency Department Summary on 08-05-2024 Emergency Department Summary [facility] Medical Records Department [address] [place] [address] Emergency Department Summary 08/05/24 MR#: [id number] Acct: [id number] Name: PEDRO KARIMI Rep #: [id number] : 1965 58 From: Jose Juan Gotti DO PCP: Dr. Margot Mai MD Status:REG ER Location: ED ADDENDUM by Dr. Ameya Rueda DO on 08/06/24 at 0109 Care of the patient was turned over to me pending callback from hospitalist. Case was discussed with the hospitalist. He recommended giving the patient vitamin K. This was ordered. He will admit patient for observation. Patient understood and was agreeable with the plan. All questions were answered. 08/06/24108 Cosigner Signature (if applicable): cc: Dr. Margot Mai MD * Signed ADDENDUM by Dr. Jose Juan Gotti DO on 08/06/24 at 0041 Hospitalist was paged for admission. Awaiting callback. Patient signed out to night physician who will speak with the hospitalist service for admission. 08/06/2440 Cosigner Signature (if applicable): cc: Dr. Margot Mai MD * Signed HPI History of Present Illness Chief Complaint: Nausea/Vomiting/Diarrh ea Narrative Narrative: Chief complaint and HPI: Nausea, vomiting, diarrhea. 58-year-old male with past medical history of proximal atrial fibrillation on warfarin, HFrEF, DM, COPD presents for evaluation of nausea, v omiting, diarrhea. Patient states on he ate an egg which he believes was bad as it tasted gross. 3 days ago he developed nonbloody diarrhea. Patient states it has become more dark in color today. He denies any recent antibiotic use. Patient states he is having some nausea and nonbloody emesis today. He denies any fever, chills, shortness of breath, chest pain, dysuria. States he has mild epigastric discomfort from vomiting. Review of systems: See HPI Medications: As listed on the chart Allergies: As listed on the chart PFSH: Per chart Vital signs: As listed on the chart. Reviewed. Physical exam: Gen: A O x3, NAD Head: Normocephalic, atraumatic Eyes: No sclera icterus, conjunctiva clear ENT: Moist mucous membranes Neck: Trachea midline, No JVD CV: RRR, no murmurs, no peripheral edema Resp: Lungs CTA BL, no w/r/c GI: Abd soft, non-distended, non-tender, no r/r/g Rectal: Normal external examination. No evidence of hemorrhoids or fissures. Normal tone and sensation. No masses, fluctuance, or tenderness. No pain out of proportion. : No CVA tenderness Musc: Full ROM, no deformity Skin: Warm, dry Neuro: Alert, oriented, grossly intact, sensation intact Psych: Cooperative, appropriate mood and affect [facility] Medical History Wears glasses MRSA infection Insulin dependent diabetes mellitus Restless legs Former smoker CPAP (continuous positive airway pressure) dependence Sleep apnea History of echocardiogram Cardiology follow-up encounter History of atrial fibrillation Hx of colonic polyps Non-ischemic cardiomyopathy HFrEF (heart failure with reduced ejection fraction) Persistent atrial fibrillation assisted current use of anticoagulant Essential 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 Atrial fibrillation with rapid ventricular response MARIELLA (obstructive sleep apnea) Diabetes COPD (chronic obstructive pulmonary disease) Home Medications ???Medication ???Instructions ???Recorded ???Last Taken ???Type bupropion HCl 150 mg tablet,12 hr 150 mg PO BID antidepressant 08/0223 History sustained-release metformin 1,000 mg tablet 1,000 mg PO BID dm 08/14/21 History lisinopril 2.5 mg tablet 2.5 mg PO DAILY 05/22/22 05/24/22 History insulin glargine 100 unit/mL (3 30 unit subcut BID 05/17/23 Unknow n History mL) subcutaneous pen (Lantus Solostar U-100 Insulin) diltiazem HCl 120 mg 120 mg PO DAILY #90 caps 09/24/23 Unknown Rx capsule,extended release 24 hr spironolactone 25 mg tablet See Rx Instructions .Route 4 Unknown Rx .COMPLEX #30 tabs potassium chloride 10 mEq 10 meq PO DAILY #90 tabs 07/18/24 Unknown Rx tablet,extended release furosemide 40 mg tablet 80 mg PO DAILY 08/05/24 Unknown Hi story metoprolol tartrate 75 mg tablet 75 mg PO Q12H 08/05/24 Unknown His tory warfarin 2 mg tablet 2 mg PO WETH 08/05/24 Unknown Hist ory warfarin 5 mg tablet 10 mg PO DAILY 08/05/24 Unknown Hi story Allergy/AdvReac Type Severity Reaction Status Date / Time Penicillins Allergy PT UNSURE Verified 08/05/24 20:31 OF REACTION Family History Other COPD (chronic obstructive pulmonary disease) Colon cancer Heart disease Lung cancer Testicular cancer Surgical History History of cardiac catheter (more content not included)... Normal [facility] Epithelial cells.squamous LM Ql (Urine sed)Ordered By: Jose Juan Gotti on 08-05-2024 Epithelial cells.squamous LM.HPF (Urine sed) [#/Area] 0 /[HPF] 0-5 [facility] Erythrocyte distribution wid th ratioOrdered By: Jose Juan Gotti on 08-05-2024 Erythrocyte distribution width (RBC) [Ratio] 14.3 % 11.6-14.6 [facility] Erythrocyte distribution wid th standard deviationOrdered By: Jose Juan Ravi on 08-05-2024 Erythrocyte distribution width (RBC) [Entitic vol] 42.5 fL 35.1-43.9 [facility] Estimation of creatinine vince aranceOrdered By: Jose Juan Gotti on 08-05-2024 Estimated Creatinine Clearance Calc 120.72 ml/min 50-250 [facility] GFR/1.73 sq M.predicted reagan g non-blacks MDRD (S/P/Bld) [Vol rate/Area]Ordered By: Jose Juan Gotti on 08-05-2024 Estimated GFR (MDRD) Non-Af Amer 92 >60 [facility] Comment on above: mL/min/1.73m2 CKD-EP I Creatinine Equation (2020) Glucose Ql (U)Ordered By: Luis Antonio Gotti on 08-05-2024 Urine Glucose (UA) Normal mg/dl Normal [facility] Hematocrit Auto (Bld) [Volum e fraction]Ordered By: Jose Juan Gotti on 08-05-2024 Hematocrit (Bld) [Volume fraction] 44.9 % 40-54 [facility] Hemoglobin A1c percentageOrd ered By: Yfn Keyes on 08-05-2024 HbA1c (Bld) [Mass fraction] 8.2 % >5.7 [facility] Hemoglobin measurementOrdere d By: Jose Juan Gotti on 08-05-2024 Hemoglobin (Bld) [Mass/Vol] 15.1 g/dL 13.0-16. 5 [facility] [employer] normalized rat io (INR) calculationOrdered By: Jose Juan Gotti on 08-05-2024 INR Coag (Bld) [Relative time] 5.3 {INR} High [facility] Comment on above: CRITICAL VALUE PETERS D TO [id number]/25/25 2348 Tyson Treadwell.RESULTS READ BACK BY SAME. Ketones Test strip Ql (U)Ord ered By: Jose Juan Gotti on 08-05-2024 Ketones Ql (U) Negative Negative [facility] - Chemistry and C hemistry - challengeOrdered By: Jose Juan Gotti on 08-05-2024 AST [Catalytic activity/Vol] 12 U/L <38 [facility] Lactic acid measurementOrder ed By: Jose Juan Gotti on 08-05-2024 Lactate [Moles/Vol] mmol/L 0.0-2.0 [facility] Lipaseon 08-05-2024 Lipase [Catalytic activity/Vol] 20 U/L Normal 13-75 [facility] Comment on above: Result Comment: Dia rojo note: LIPASE revised reference range effective 22. New Lipase methodology. Expected to produce lower values than the previous assay method. NEW Reference Range: 13 - 75 U/L Performed By: #### L 100.0100, L500.4050, L501.2450 #### [facility] [address] [place], [address] Lipase measurementOrdered By : Jose Juan Gotti on 08-05-2024 Lipase [Catalytic activity/Vol] 20 U/L 13-75 [facility] Comment on above: Please note:LIPASE r evised reference range effective 22. New Lipase methodology. Expected to produce lower values than the previous assay method. NEW Reference Range: 13 - 75 U/L Lower GI hemoglobin IA Ql (S tl)Ordered By: Jose Juan Gotti on 08-05-2024 Stool Occult Blood (EDUARD) Positive Abnormal [facility] Lymphocytes Auto (Unsp spec) [#/Vol]Ordered By: Jose Juan Gotti on 08-05-2024 Lymphocytes (Bld) [#/Vol] 1.54 10*3/uL 0.83-4.5 1 [facility] MCV (mean corpuscular volume ) determinationOrdered By: Jose Juan Gotti on 08-05-2024 MCV (RBC) [Entitic vol] 82.5 fL 80-94 [facility] Manual differential comment Julio (Bld) [Interp]Ordered By: Jose Juan Gotti on 08-05-2024 Differential Comment SCANNED [facility] Comment on above: LEFT SHIFT: BANDS ND ESENT 2+ Mean corpuscular hemoglobin (MCH) determinationOrdered By: Jose Juan Gotti on 08-05-2024 MCH (RBC) [Entitic mass] 27.8 pg 27.0-32.0 [facility] Mean corpuscular hemoglobin concentration (MCHC) determinationOrdered By: Jose Juan Gotti on 08-05-2024 MCHC (RBC) [Mass/Vol] 33.6 g/dL 32-36 [facility] Mean platelet volume determi nationOrdered By: Jose Juan Gotti on 08-05-2024 Platelet mean volume (Bld) [Entitic vol] 11.1 fL 6.2-12.0 [facility] Microscopic analysis of urin e for red blood cells (RBC)Ordered By: Jose Juan Gotti on 08-05-2024 Urine RBC 0 SEEN /hpf 0-5 [facility] Mucus LM Ql (Urine sed)Order ed By: Jose Juan Gotti on 08-05-2024 Mucus Ql (Urine sed) 0 SEEN /hpf [facility] Myelocyte %Ordered By: Jose Juan Gotti on 08-05-2024 Myelocytes/100 WBC (Bld) 3 % High 0-0 [facility] Neutrophil percentageOrdered By: Jose Juan Gotti on 08-05-2024 Neutrophils (%) (Auto) Not Reportable [facility] Nitrite Test strip Ql (U)Ord ered By: Jose Juan Gotti on 08-05-2024 Nitrite Ql (U) Negative Negative [facility] Pathologist review Julio (Unsp spec) [Interp]Ordered By: Jose Juan Gotti on 08-05-2024 Differential Pathologist's Review May estuardo [facility] Platelet countOrdered By: Luis Antonio Gotti on 08-05-2024 Platelets (Bld) [#/Vol] 207 10*3/uL 150-450 [facility] Potassium (Unsp spec) [Mass/ Vol]Ordered By: Jose Juan Gotti on 08-05-2024 Potassium [Moles/Vol] 3.4 mmol/L 3.3-5.1 [facility] Protein Test strip Ql (U)Ord ered By: Jose Juan Gotti on 08-05-2024 Protein Ql (U) 30 mg/dl High Negative [facility] Prothrombin Time w/INRon INR Coag (PPP) [Relative time] 5.3 {INR} Invalid Interpretation Code [facility] Comment on above: Result Comment: CRIT ICAL VALUE CALLED TO MMARTIAN 08/05/24 2348 Tyson Treadwell. RESULTS READ BACK BY SAME. Performed By: #### L 501.2300, L500.2500, L501.5200, L100.0100 #### [facility] [address] [place], [address] PT Coag (PPP) [Time] 50.1 s High 11.7-14.9 [facility] Comment on above: Performed By: #### L 501.2300, L500.2500, L501.5200, L100.0100 #### [facility] [address] [place], [address] Prothrombin timeOrdered By: Jose Juan Gotti on 08-05-2024 PT Coag (PPP) [Time] 50.1 s High 11.7-14.9 [facility] RBC Auto (Bld) [#/Vol]Ordere d By: Jose Juan Gotti on 08-05-2024 RBC (Bld) [#/Vol] 5.44 10*6/uL 4.6-6.2 [facility] Reactive lymphocyte countOrd ered By: Jose Juan Gotti on 08-05-2024 Reactive Lymphocytes 2+ [facility] Segmented neutrophils/100 WB C (Bld)Ordered By: Jose Juan Gotti on 08-05-2024 Neutrophils/100 WBC (Bld) 38 % Low 47-70 [facility] Serum creatinine measurement (mass/volume)Ordered By: Jose Juan Gotti on 08-05-2024 Creatinine [Mass/Vol] 0.96 mg/dL 0.70-1.20 [facility] Serum globulin measurementOr dered By: Jose Juan Gotti on 08-05-2024 Globulin (S) [Mass/Vol] 2.8 g/dL 2.2-4.2 [facility] Serum glucose measurement (m ass/volume)Ordered By: Jose Juan Gotti on 08-05-2024 Glucose [Mass/Vol] 200 mg/dL High 70-99 [facility] Serum or plasma alanine casey otransferase (ALT) measurementOrdered By: Jose Juan Gotti on 08-05-2024 ALT [Catalytic activity/Vol] 9 U/L <47 [facility] [facility] Serum or plasma albumin brian urement (mass/volume)Ordered By: Jose Juan Ravi on 08-05-2024 Albumin [Mass/Vol] 3.6 g/dL 3.5-5.0 [facility] Serum or plasma albumin/glob ulin mass ratioOrdered By: Jose Juan Gotti on 08-05-2024 Albumin/Globulin [Mass ratio] 1.3 {ratio} 0.9-2.4 [facility] Serum or plasma alkaline moriah sphatase measurementOrdered By: Jose Juan Gotti on 08-05-2024 ALP [Catalytic activity/Vol] 93 U/L 40-129 [facility] Serum or plasma calcium brian urement (mass/volume)Ordered By: Jose Juan Ravi on 08-05-2024 Calcium [Mass/Vol] 7.7 mg/dL 7.6-11.0 [facility] Serum or plasma urea nitroge n measurement (mass/volume)Ordered By: Jose Juan Gotti on 08-05-2024 Urea nitrogen [Mass/Vol] 19 mg/dL 4-19 [facility] Sodium levelOrdered By: Bob Gotti on 08-05-2024 Sodium [Moles/Vol] 133 mmol/L 133-145 [facility] Stool Occult Blood iFOBon STOB Positive Normal [facility] Comment on above: Performed By: #### L 100.0100, L500.4050, L501.2450 #### [facility] [place], [address] Stool gastrointestinal hemog lobin detection by immunologic methodOrdered By: Jose Juan Ana María on 08-05-2024 Lower GI hemoglobin IA Ql (Stl) Positive Abnormal [facility] TSH DL <= 0.005 mIU/L QnOrde red By: Yfn Keyes on 08-05-2024 Thyroid Stimulating Hormone (TSH) 4.200 uIU/mL 0.300-4.20 0 [facility] TSH Qn 4.200 uIU/mL 0.300-4.20 0 [facility] Total proteinOrdered By: Fam pedersen Ana María on 08-05-2024 Protein [Mass/Vol] 6.5 g/dL 5.9-8.4 [facility] Urinalysis, Completeon 08-05 RBC 0 SEEN Normal 0-5 [facility] Comment on above: Order Comment: CLEAN CATCH Performed By: #### L 501.2300, L500.2500, L501.5200, L100.0100 #### [facility] [address] [place], [address] BACTERIA 0 SEEN Normal None Seen [facility] Comment on above: Order Comment: CLEAN CATCH Performed By: #### L 501.2300, L500.2500, L501.5200, L100.0100 #### [facility] [address] [place], [address] EPI,SQUAMOUS 0 SEEN Normal 0-5 [facility] Comment on above: Order Comment: CLEAN CATCH Performed By: #### L 501.2300, L500.2500, L501.5200, L100.0100 #### [facility] [address] [place], [address] Mucus Ql (Urine sed) 0 SEEN Normal [facility] Comment on above: Order Comment: CLEAN CATCH Performed By: #### L 501.2300, L500.2500, L501.5200, L100.0100 #### [facility] [address] [place], [address] WBC 0 SEEN Normal 0-5 [facility] Comment on above: Order Comment: CLEAN CATCH Performed By: #### L 501.2300, L500.2500, L501.5200, L100.0100 #### [facility] [address] [place], [address] Urine blood detectionOrdered By: Jose Juan Gotti on 08-05-2024 Urine Occult Blood 10 /ul High Negative [facility] Urine clarityOrdered By: Fam Gotti on 08-05-2024 Clarity (U) Clear Clear [facility] Urine color determinationOrd ered By: Jose Juan Gotti on 08-05-2024 Color (U) Yellow Yellow [facility] Urine leukocyte esterase det ection by dipstickOrdered By: Jose Juan Gotti on 08-05-2024 Leukocyte esterase Test strip Ql (U) 25 /ul High Negative [facility] Urine pHOrdered By: Jose Juan Faith on 08-05-2024 pH (U) 6.0 [pH] 5.0 - 8.0 [facility] Urine sediment bacteria coun t by microscopy (number/high power field)Ordered By: Jose Juan Gotti on 08-05-2024 Bacteria LM.HPF (Urine sed) [#/Area] 0 /[HPF] None Seen [facility] Urine specific gravity measu rementOrdered By: Jose Juan Gotti on 08-05-2024 Specific gravity (U) [Rel density] 1.010 1.002-1.03 0 [facility] Urobilinogen Ql (U)Ordered B y: Jose Juan Gotti on 08-05-2024 Urine Urobilinogen Normal mg/dl Normal [facility] White blood cell (WBC) count Ordered By: Jose Juan Gotti on 08-05-2024 WBC (Bld) [#/Vol] 7.7 10*3/uL 4.4-11.0 [facility] White blood cell countOrdere d By: Jose Juan Gotti on 08-05-2024 Urine WBC 0 SEEN /hpf 0-5 [facility] Surgery Visit Reporton 07-28 Surgery Visit Report [facility] [address] [place] [address] OFFICE VISIT Date of Service: 07/28/24 MR#: [id number] Acct: [id number] Name: PEDRO KARIMI Rep #: [id number] : 1965 Provider: Dr. 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 Is patient in pain?: No Allergies Penicillins Allergy (Verified 07/28/24 15:00) PT UNSURE OF REACTION Medications ???Medication ???Instructions ???Recorded ???Confirmed ???Type bupropion HCl 150 mg tablet,12 hr 150 mg PO DAILY antidepressant 07/28/24 History sustained-release metformin 1,000 mg tablet 1,000 mg PO BID dm 08/14/21 History lisinopril 2.5 mg tablet 2.5 mg PO DAILY 05/22/22 07/28/24 History insulin glargine 100 unit/mL (3 60 unit subcut QHS 05/17/23 History mL) subcutaneous pen (Lantus Solostar U-100 Insulin) warfarin 2 mg tablet 2 mg PO .COMPLEX #90 tabs 06/07/23 07/28/24 Rx furosemide 40 mg tablet 40 mg PO BID #60 tabs 09/04/23 Rx diltiazem HCl 120 mg 120 mg PO DAILY #90 caps 09/24/23 07/28/24 Rx capsule,extended release 24 hr spironolactone 25 mg tablet See Rx Instructions .Route 4 07/28/24 Rx .COMPLEX #30 tabs warfarin 5 mg tablet 5 mg PO .COMPLEX #90 tabs 04/15/24 07/28/24 Rx metoprolol tartrate 50 mg tablet 50 mg PO BID #180 tabs 04/17/24 Rx potassium chloride 10 mEq 10 meq PO DAILY #90 tabs 07/18/24 07/28/24 Rx tablet,extended release Have you fallen in the past year?: No PFSH Medical History Wears glasses MRSA infection Insulin dependent diabetes mellitus Restless legs Former smoker CPAP (continuous positive airway pressure) dependence Sleep apnea History of echocardiogram Cardiology follow-up encounter History of atrial fibrillation Hx of colonic polyps Non-ischemic cardiomyopathy 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 (heart failure with reduced ejection fraction) 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 Essential 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 Atrial fibrillation with rapid ventricular response MARIELLA (obstructive sleep apnea) Diabetes COPD (chronic obstructive pulmonary disease) Surgical History History of cardiac catheterization Status post cryoablation of arrhythmia (03/01/22) History of cardioversion (10/27/21) Bunion H/O hernia repair Family History Other COPD (chronic obstructive pulmonary disease) Colon cancer Heart disease Lung cancer Testicular cancer Social History Smoking Status: Former smoker alcohol intake: never substance use type: does not use caffeine: Yes Type: coffee Number of servings: 1 HPI HPI HPI: 58-year-old male presents due to history of colon polyps for repeat colonoscopy. Patient last colon anoscopy was May 2022. Patient is on Coumadin due to A-fib which he underwent cardioversion last month which currently heart rate is regular in office. Patient's INR is normally 2.9-3.3 per patient. Patient is scheduled for an ablation with Dr. Miller in a few months at [facility]. Patient has bowel moods daily denies any blood. Patient denies any chronic abdominal pain/nausea/vomiting/r eflux. Patient denies any family history of colon cancer. ROS General General: No weight change, appetite, fatigue, colon cancer or breast cancer HEENT HEENT: Yes eye injury and eye surgery; No difficulty swallowing, swollen glands or hoarseness Endo Endocrine: Yes diabetes mellitus; No thyroid disease, thyroid cancer, Hair loss, heat intolerance or cold intolerance Skin Skin: No rash or changing moles Musc Musculoskeletal: No back problems, arthritis, rheumatoid arthritis, gout or joint pain Cardio Cardiovascular: Yes atrial fibrillation; No murmur, pacemaker, heart disease, high blood pressure, heart attack, heart stent, palpitations, shortness of breath with exertion or chest pain Psych Psychiatric: No depression, anxiety or hearing voices Resp Respiratory: Yes shortness of breath, Yes sleep apnea, No cough, No COPD, No asthma, No emphysema and No wheezing Gastro Gastrointestinal: No abdominal pain, No nausea or vomiting, No diarrhea, No constipation, No blood in stool, No acid reflux, No hemorrhoids, No ulcers, No gallbladder problem and No black,tarry stools He (more content not included)... [facility] Office Visit (PODIWS ) PEDRO KARIMI ([id number]) 1965 M Date Time Provider Department 07/25/24 3:40 PM LUCAS LUTZ PODIWS During your visit today, we recorded the following information about you: Lucas Lutz 07/25/2024 3:47 PM Signed Diabetes Foot Care Instructions When you have [...] (or decreased sensation in your feet) a grading machine operator should always cut your toenails. Be Careful [...] Go to your health care provider or grading machine operator to treat these conditions. Lucas Lutz 07/25/2024 5:59 PM Signed Last time saw pcp: not in chart Subjective: Patient presents to clinic c/o painful toenails. They state that the nails are especially painful with shoe gear and pressure. Patient also reports more swelling and occasional pain in left 2nd toe. No other pedal complaints at this time. Patient states no change in medications or medical history since last visit. Objective: Patient presents to clinic ambulating in boots Vasc: DP and PT pulses are palpable bilateral. CFT is less than 5 seconds bilateral. Skin temperature is warm to cool proximal to distal bilateral. There is moderate edema or varicosities noted. Neuro: Protective sensation is decreased to the foot and toes when tested with the 5.07 SWM bilateral. Vi (more content not included)... Normal [facility] 07-09-2024 CNPN Telephone (AGCARDHWG ) PEDRO KARIMI ([id number]) 1965 M Date Time Provider Department 07/09/24 LAMAR NOGUEIRA AGCARDHWG During your visit today, we recorded the following information about you: Missy Cruz LPN 07/09/2024 8:13 AM Signed Pedro Karimi states he had a cardioversion on 07/08/24, patient stated he woke up having trouble breathing. Advised patient to go to ER , Patient stated he has an appointment with his PCP in less then an hour and will wait to see what his PCP states. Missy Cruz LPN July 09, 2024 8:12 AM Lamar Nogueira MD 07/09/2024 2:06 PM Signed [facility] General Electrophysiology (EP) Reviewed. If he is seeing PCP right away that is acceptable, hopefully nothing serious going on. Lamar Nogueira MD July 09, 2024 2:05 PM Missy Cruz LPN 07/09/2024 2:15 PM Signed Followed up with Pedro Karimi he stated PCP did a chest x-ray ( that didn't find anything ) she also prescribed the patient an inhaler. Missy Cruz LPN July 09, 2024 2:15 PM Allergies As of Date: 07/09/2024 Noted Allergy Reaction PENICILLINS 06/12/2008 2 - Rash Comments: Had reaction as a baby Date Reviewed: 07/08/2024 Reviewed by: Lamar Nogueira MD - Fully Assessed Prescriptions as of 07/09/2024 - metoprolol tartrate, short acting, 75 mg tab Take 1 tablet by mouth every 12 hours. - dilTIAZem CD (CARDIZEM CD, CARTIA XT) 120 mg 24 hr capsule Take 120 mg by mouth once daily. - FREESTYLE ANNEL 2 READER USE DIRECTED TO CHECK AT LEAST 4 TIMES DAILY - FREESTYLE ANNEL 2 SENSOR kit USE 1 SENSOR EVERY 14 DAYS. - warfarin (COUMADIN) 4 mg tablet Take 8 mg by mouth once daily. - insulin glargine (LANTUS SOLOSTAR, BASAGLAR KWIKPEN) 100 unit/mL (3 mL) Inject 50 Units subcutaneously. Once daily - insulin lispro (HUMALOG KWIKPEN) 100 unit/mL INJECT 5 TO 15 UNITS SUBCUTANEOUSLY WITH MEALS - pen needle, diabetic 31 gauge x 15/64 ndle USE 4 NEEDLES DAILY - warfarin (COUMADIN) 5 mg tablet Take 10 mg by mouth once daily. Currently as of 09/27/2022 he takes 10 mg daily except Wed and Terri takes 12 mg - furosemide (LASIX) 40 mg tablet Take 80 mg by mouth once daily. - spironolactone (ALDACTONE) 25 mg tablet Take 25 mg by mouth once daily. - potassium chloride (K-TAB) 10 mEq tablet Take 10 mEq by mouth once daily. - buPROPion SR (ZYBAN SR; WELLBUTRIN SR) 150 mg 12 hr tablet Take 1 tablet by mouth twice daily. - lisinopril (ZESTRIL) 2.5 mg tablet Take 1 tablet by mouth once daily. - metFORMIN (GLUCOPHAGE) 1,000 mg tablet Take 1 tablet by mouth twice daily with meals. Problem List As Of Date 07/09/2024 Noted Resolved BENIGN NEOPLASM LG BOWEL [D12.6] 06/12/2008 MARIELLA on CPAP [G47.33] 06/12/2008 Type II diabetes mellitus, uncontrolled (HCC) [*06/12/2008 Sebaceous cyst [L72.3] 07/20/2008 09/19/2010 Ingrowing nail [L60.0] 04/12/2009 09/19/2010 Personal history of colonic polyps [Z86.0100] 10/03/2010 09/29/2011 Family history of colon cancer [Z80.0] 10/03/2010 Other acquired deformity of toe [M20.5X9] 05/29/2011 09/29/2011 Hallux valgus (acquired) [M20.10] 05/29/2011 09/29/2011 Abnormality of gait [R26.9] 05/29/2011 09/29/2011 Obesity, Class III, BMI 40-49.9 (morbid obesity*09/29/2011 Tobacco use disorder [F17.200] 05/17/2012 12/31/2021 Routine medical exam [Z00.00] Depressive disorder [F32.A] 08/03/2012 Venous insufficiency (chronic) (peripheral) [I8*01/14/2015 Persistent atrial fibrillation (HCC) [I48.19] 12/31/2021 Primary cardiomyopathy (HCC) [I42.9] 12/31/2021 Chronic HFrEF (heart failure with reduced eject*12/31/2021 At risk for stroke [Z91.89] 12/31/2021 Anticoagulant long-term use [Z79.01] 12/31/2021 Essential (primary) 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 [I10] 10/04/2021 Status post catheter ablation of atrial fibrill*03/01/2022 Atypical atrial flutter (HCC) [I48.4] 06/16/2022 Type 2 diabetes mellitus (HCC) [E11.9] 07/31/2023 Encounter Status:Closed by LAMAR NOGUEIRA on 07/09/24 Normal [facility] Chest PA and Lateralon 07-09 Chest PA and Lateral [facility] [address] [place], [place] [address] Chest PA and Lateral MR#: [id number] Acct: [id number] Name: PEDRO KARIMI Rep #: [id number] : 1965 M 58 From: Reilly negron MD PCP: Dr. Margot Mai MD Status: REG CLI Study: Chest PA and Lateral Date of Exam: 07/09/24 Exam# [id number] Ordering Dr: Lala Galvez HYDROELECTRIC MACHINERY MECHANIC HELPER-[place] PROCEDURE: CHEST PA AND LATERAL REASON FOR EXAM: AFib. Short of breath. TECHNIQUE: Frontal and lateral views of the chest. COMPARISON: 08/14/2021. FINDINGS: The heart size is borderline in size. Aortic calcifications are noted. Chronic increased interstitial markings are noted without evidence of focal consolidation, pleural effusion or pneumothorax. The visualized osseous structures demonstrate degenerative changes. RAD/Chest PA and Lateral IMPRESSION: Chronic increased interstitial markings are noted without evidence of focal consolidation, pleural effusion or pneumothorax. Findings are similar to the prior study. Correlate clinically to exclude congestive heart failure with pulmonary edema versus chronic interstitial lung disease. Reading Location: [id number] CC: HYDROELECTRIC MACHINERY MECHANIC HELPER-C Lala Galvez; Dr. Margot Mai MD Tour Director: Signed Normal [facility] ANES POSTPROC EVALon 025 ANES POSTPROC EVAL HNO ID: [id number] Author: DEISY CARSON MD Service: Anesthesiology Author Type: Anesthesiologist Type: Anesthesia Postprocedure Evaluation Filed: 07/08/2024 13:51 Note Text: POST ANESTHESIA EVALUATION NOTE : 1965 Procedure Summary Date: 07/08/24 Room / Location: [facility] / [facility] Anesthesia Start: 08 Anesthesia Stop: 905 Procedure: CARDIOVERSION EXTERNAL ELECTIVE (Cardiac) Diagnosis: Persistent atrial fibrillation (HCC) (Persistent atrial fibrillation (HCC) [I48.19]) Surgeons: Lamar Nogueira MD Responsible Provider: Deisy Carson MD Anesthesia Type: MAC ASA Status: 3 Anesthesia Type: MAC Last Vitals Vitals Value Taken Time BP 101/66 07/08/24 1000 Temp 07/08/24 1351 HR SpO2 68 07/08/24 1002 Resp 15 07/08/24 1003 SpO2 98 % 07/08/24 1002 Vitals shown include unfiled device data. Post Anesthesia Patient Status Patient Evaluation: PACU. PACU/ICU Patient Condition: stable. Neurological Status: aware and responsive. Pulmonary Status: breathing comfortably on supplemental oxygen Airway Control: returned to baseline unsupported. Cardiovascular Status: stable. Pain Management: clinically adequate Postoperative Hydration: acceptable. Intraoperative Events: no significant anesthesia events Post Operative Nausea/Vomiting Status: no significant post operative nausea or vomiting Recommendation: continue current plan of care. Anesthesia Observations No Documentation SIGNATURE: Deisy Carson MD PATIENT NAME: Pedro Karimi DATE: July 08, 2024 TIME: 1:51 PM CSN: [id number] Normal [facility] ANES PRE-OPon 07-08-2024 ANES PRE-OP HNO ID: [id number] Author: DEISY CARSON MD Service: Anesthesiology Author Type: Anesthesiologist Type: Anesthesia Preprocedure Evaluation Filed: 07/08/2024 08:20 Note Text: ANESTHESIOLOGY DAY OF SURGERY NOTE Cardioversion Afib - metop, warfarin, diltiazem CHF - spironolactone, furosemide HTN - lisinopril DM - metformin, insulin Bupropion Echo 2022 EF = 55% Mares 2, grade 1 : 1965 Procedure Information Date/Time: 07/08/24 0800 Procedure: CARDIOVERSION EXTERNAL ELECTIVE (Cardiac) - *needs hANDp fingerstick INR Schedule electrical cardioversion for he within the next couple weeks. Any doctor. He is on warfarin, will need documentation of previous month of INRs. 06/25/24= 3.0 04/24/24= 2.9 01/25/24= 2.6 NO MEDS THAT NEED HELD POD; SAME DAY D/C Location: [facility] / [facility] Surgeons: Lamar Nogueira MD Estimated body mass index is 41.09 kg/m? as calculated from the following: Height as of this encounter: 188 cm (6' 2). Weight as of this encounter: 145.2 kg (320 lb). Most recent hematocrit and potassium results: Hematocrit 40.5 07/08/2024 Potassium 4.4 10/27/2022 Relevant Problems ANESTHESIA (+) MARIELLA on CPAP CARDIO (+) Atypical atrial flutter (HCC) (+) Essential (primary) 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 (+) Persistent atrial fibrillation (HCC) (+) Venous insufficiency (chronic) (peripheral) ENDO (+) Type 2 diabetes mellitus (HCC) (+) Type II diabetes mellitus, uncontrolled PULMONARY (+) MARIELLA on CPAP I - PHYSICAL EVALUATION AIRWAY Patient intubated: No. Tracheostomy tube not present Mallampati: III. TM distance: >3 FB. Neck ROM: full ROM without neurological symptoms. Mouth opening: adequate. Short neck: no. Thick neck: yes II - ANESTHESIA PLAN ASA Score: 3 Anesthetic Plan: MAC NPO Status: adequate Beta Jada Monitoring Plan Monitoring plan: standard ASA. Post Procedure Analgesic Plan Postoperative analgesic plan: multimodal analgesia. Informed Consent Anesthetic risks, benefits, alternatives, personnel and consent discussed: yes. Patient / Responsible Alliance Party agrees to proceed: yes Patient / Surrogate agrees to blood products: blood products not planned Potential Anesthesia issues that may suggest increased risk of complications or contraindication to planned procedure: none. Vitals Value Taken Time BP 125/75 07/08/24 0734 Pulse 116 07/08/24 0734 Resp 17 07/08/24 0734 Temp 35.9 ?C (96.6 ?F) 07/08/24 0734 SpO2 95 % 07/08/24 0734 No current facility-administered medications on file as of 07/08/2024. Outpatient Medications as of 07/08/2024 Medication Sig dilTIAZem CD (CARDIZEM CD, CARTIA XT) 120 mg 24 hr capsule Take 120 mg by mouth once daily. warfarin (COUMADIN) 4 mg tablet Take 8 mg by mouth once daily. insulin glargine (LANTUS SOLOSTAR, BASAGLAR KWIKPEN) 100 unit/mL (3 mL) Inject 50 Units subcutaneously. Once daily insulin lispro (HUMALOG KWIKPEN) 100 unit/mL INJECT 5 TO 15 UNITS SUBCUTANEOUSLY WITH MEALS warfarin (COUMADIN) 5 mg tablet Take 10 mg by mouth once daily. Currently as of 09/27/2022 he takes 10 mg daily except Wed and Terri takes 12 mg furosemide (LASIX) 40 mg tablet Take 80 [...] tablet by mouth twice daily with meals. FREESTYLE ANNEL 2 READER USE DIRECTED TO CHECK AT LEAST 4 TIMES DAILY FREESTYLE ANNEL 2 SENSOR kit USE 1 SENSOR EVERY 14 DAYS. pen needle, diabetic 31 gauge x 15/64 ndle USE 4 NEEDLES DAILY warfarin (COUMADIN) 2 mg tablet 10 mg. I have interviewed and examined the patient. I have reviewed the medical record and/or the pre-anesthesia evaluation, pertinent labs, and test results. This contains updated information obtained within 48 hours of Surgery/Procedure. SIGNATURE: Deisy Carson MD PATIENT NAME: Pedro Karimi DATE: July 08, 2024 TIME: 7:57 AM CSN: [id number] Normal [facility] Basic metabolic 2000 panelon 07-08-2024 Anion gap [Moles/Vol] 12 mmol/L Normal 8-15 [facility] Comment on above: Order Comment: Speci men Type: BLOOD SPECIMENOrdering Facility: [facility] Address: [address] [place] [address] Performed By: #### 2 4321-2 ####[facility] LABORATORYCLIA [id number] [place] [address] [place] Calcium [Mass/Vol] 8.9 mg/dL Normal 8.5-10.2 [facility] Comment on above: Order Comment: Speci men Type: BLOOD SPECIMENOrdering Facility: [facility] Address: [address] [place] [address] Performed By: #### 2 4321-2 ####[facility] LABORATORYCLIA [id number] [place] [address] [place] Chloride [Moles/Vol] 104 mmol/L Normal 98-107 [facility] Comment on above: Order Comment: Speci men Type: BLOOD SPECIMENOrdering Facility: [facility] Address: [address] [place] [address] Performed By: #### 2 4321-2 ####[facility] LABORATORYCLIA [id number] [place] [address] [place] CO2 [Moles/Vol] 23 mmol/L Normal 22-30 [facility] Comment on above: Order Comment: Speci men Type: BLOOD SPECIMENOrdering Facility: [facility] Address: [address] [place] [address] Performed By: #### 2 4321-2 ####[facility] LABORATORYCLIA [id number] [place] [address] [place] Creatinine [Mass/Vol] 0.75 mg/dL Normal 0.73-1.22 [facility] Comment on above: Order Comment: Speci men Type: BLOOD SPECIMENOrdering Facility: [facility] Address: [address] [place] [address] Performed By: #### 2 4321-2 ####[facility] LABORATORYCLIA [id number] [address] [place] Creatinine and Glomerular filtration rate.predicted panel (S/P/Bld) 105 mL/min/1.73m??? Normal >=60 [facility] Comment on above: Order Comment: Arvin gar Type: BLOOD SPECIMENOrdering Facility: [facility] Address: [address] [place] [address] Result Comment: Leyla mated Glomerular Filtration Rate (eGFR) is calculated using the 2020 CKD-EPI creatinine equation. This equation utilizes serum creatinine, sex, and age as parameters. The creatinine assay has traceable calibration to isotope dilution-mass spectrometry. Refer to KDIGO guidelines for clinical interpretation. In patients with unstable renal function, e.g. those with acute kidney injury, the eGFR may not accurately reflect actual GFR. Performed By: #### 2 4321-2 ####[facility] LABORATORYCLIA [id number] [place] [address] [place] Glucose [Mass/Vol] 198 mg/dL High 74-99 [facility] Comment on above: Order Comment: Arvin gar Type: BLOOD SPECIMENOrdering Facility: [facility] Address: [address] [place] [address] Result Comment: The [place] [employer] (ADA) provides guidance for cutoff values for fasting glucose and random glucose. The ADA defines fasting as no caloric intake for at least 8 hours. Fasting plasma glucose results between 100 to 125 mg/dL indicate increased risk for diabetes (prediabetes). Fasting plasma glucose results greater than or equal to 126 mg/dL meet the criteria for diagnosis of diabetes. In the absence of unequivocal hyperglycemia, results should be confirmed by repeat testing. In a patient with classic symptoms of hyperglycemia or hyperglycemic crisis, random plasma glucose results greater than or equal to 200 mg/dL meet the criteria for diagnosis of diabetes. Reference: Standards of Medical Care in Diabetes 2016, [place] [employer]. Diabetes Care. 2016.39(Suppl 1). Performed By: #### 2 4321-2 ####[facility] LABORATORYCLIA [id number] [place] [address] [place] Potassium [Moles/Vol] 4.5 mmol/L Normal 3.7-5.1 [facility] Comment on above: Order Comment: Arvin gar Type: BLOOD SPECIMENOrdering Facility: [facility] Address: [address] [place] [address] Performed By: #### 2 4321-2 ####[facility] [id number] [place] [id number] [place] Sodium [Moles/Vol] 139 mmol/L Normal 136-144 [facility] Comment on above: Order Comment: Speci men Type: BLOOD SPECIMENOrdering Facility: [facility] Address: [address] [place] [address] Performed By: #### 2 4321-2 ####[facility] LABORATORYCLIA [id number] [address] [place] Urea nitrogen [Mass/Vol] 23 mg/dL Normal 9-24 [facility] Comment on above: Order Comment: Speci men Type: BLOOD SPECIMENOrdering Facility: [facility] Address: [address] [place] [address] Performed By: #### 2 4321-2 ####[facility] LABORATORYCLIA [id number] [address] CBC panel Auto (Bld)on 07-08 Erythrocyte distribution width (RBC) [Ratio] 14.6 % Normal 11.5-15.0 [facility] Comment on above: Order Comment: Speci men Type: BLOOD SPECIMENOrdering Facility: [facility] Address: [address] [place] [address] Performed By: #### 5 8410-2 ####[facility] LABORATORYCLIA [id number] [address] [place] Hematocrit (Bld) [Volume fraction] 40.5 % Normal 39.0-51.0 [facility] Comment on above: Order Comment: Speci men Type: BLOOD SPECIMENOrdering Facility: [facility] Address: [address] [place] [address] Performed By: #### 5 8410-2 ####[facility]ORATORYCLIA [id number] [address] Hemoglobin (Bld) [Mass/Vol] 13.1 g/dL Normal 13.0-17. 0 [facility] Comment on above: Order Comment: Speci men Type: BLOOD SPECIMENOrdering Facility: [facility] Address: [address] [place] [address] Performed By: #### 5 8410-2 ####[facility] LABORATORYCLIA [id number] [address] MCH (RBC) [Entitic mass] 27.3 pg Normal 26.0-34.0 [facility] Comment on above: Order Comment: Speci men Type: BLOOD SPECIMENOrdering Facility: [facility] Address: [address] [place] [address] Performed By: #### 5 8410-2 ####[facility] LABORATORYCLIA [id number] [address] MCHC (RBC) [Mass/Vol] 32.3 g/dL Normal 30.5-36.0 [facility] Comment on above: Order Comment: Speci men Type: BLOOD SPECIMENOrdering Facility: [facility] Address: [address] [place] [address] Performed By: #### 5 8410-2 ####[facility]ATORYCLIA [id number] [address] MCV (RBC) [Entitic vol] 84.6 fL Normal 80.0-100.0 [facility] Comment on above: Order Comment: Speci men Type: BLOOD SPECIMENOrdering Facility: [facility] Address: [address] [place] [address] Performed By: #### 5 8410-2 ####[facility] LABORATORYCLIA [id number] [address] Nucleated RBC (Bld) [#/Vol] 10*3/uL Normal <0.01 [facility] Comment on above: Order Comment: Speci men Type: BLOOD SPECIMENOrdering Facility: [facility] Address: [address] [place] [address] Performed By: #### 5 8410-2 ####[facility] LAB[facility]ATORYCLIA [id number] [address] Platelet mean volume (Bld) [Entitic vol] 10.7 fL Normal 9.0-12.7 [facility] Comment on above: Order Comment: Speci men Type: BLOOD SPECIMENOrdering Facility: [facility] Address: [address] [place] [address] Performed By: #### 5 8410-2 ####[facility] LABORATORYCLIA [id number] [address] [place] Platelets (Bld) [#/Vol] 180 10*3/uL Normal 150-400 [facility] Comment on above: Order Comment: Speci men Type: BLOOD SPECIMENOrdering Facility: [facility] Address: [address] [place] [address] Performed By: #### 5 8410-2 ####[facility] LAB[facility]ATORYCLIA [id number] [address] STATES OF [facility] RBC (Bld) [#/Vol] 4.79 10*6/uL Normal 4.20-6.00 [facility] Comment on above: Order Comment: Speci men Type: BLOOD SPECIMENOrdering Facility: [facility] Address: [address] [place] [address] Performed By: #### 5 8410-2 ####[facility] LABORATORYCLIA [id number] [address] WBC (Bld) [#/Vol] 4.57 10*3/uL Normal 3.70-11.00 [facility] Comment on above: Order Comment: Speci men Type: BLOOD SPECIMENOrdering Facility: [facility] Address: [address] [place] [address] Performed By: #### 5 8410-2 ####[facility] LABORATORYCLIA [id number] [address] CNDSon 07-08-2024 CNDS HNO ID: [id number] Author: LAMAR NOGUEIRA MD Service: Electrophysiology Author Type: Physician Type: Discharge Summary Filed: 07/08/2024 09:01 Note Text: DISCHARGE NOTE (Patient Admitted Less than 48 Hours) [facility] Electrophysiology (EP) SERVICE DATE: 07/08/2024 SERVICE TIME: 8:59 AM ADMISSION DATE: 07/08/2024 DISCHARGE DATE: 07/08/2024 DISCHARGE DISPOSITION: Home with Self Care PROCEDURE: electrical cardioversion 07/08/2024 (successful) DIET: Diabetic, Low salt, low cholesterol, Cardiac ACTIVITY AFTER DISCHARGE: Resume pre-hospital activity No driving for one days. No driving or operating machinery or power tools today 07/08/2024 FOLLOW UP CARE REQUIRED: follow up as already scheduled with Dr. Nogueira in October 2024 DISCHARGE MEDICATIONS: Medication List CONTINUE taking these medications buPROPion SR 150 mg 12 hr tablet Commonly known as: WELLBUTRIN SR Take 1 tablet by mouth twice daily. dilTIAZem CD 120 mg 24 hr capsule Commonly known as: CARDIZEM CD, CARTIA XT FREESTYLE ANNEL 2 READER Generic drug: flash glucose scanning reader FREESTYLE ANNEL 2 SENSOR Kit Generic drug: flash glucose sensor furosemide 40 mg tablet Commonly known as: LASIX insulin glargine 100 unit/mL (3 mL) insulin lispro 100 unit/mL Commonly known as: HumaLOG KWIKPEN lisinopril 2.5 mg tablet Commonly known as: ZestriL Take 1 tablet by mouth once daily. metFORMIN 1,000 mg tablet Commonly known as: GLUCOPHAGE Take 1 tablet by mouth twice daily with meals. metoprolol tartrate 75 mg Tab Take 1 tablet by mouth every 12 hours. pen needle, diabetic 31 gauge x 15/64 Ndle potassium chloride 10 mEq tablet Commonly known as: K-TAB spironolactone 25 mg tablet Commonly known as: ALDACTONE * warfarin 5 mg tablet Commonly known as: COUMADIN * warfarin 4 mg tablet Commonly known as: COUMADIN * This list has 2 medication(s) that are the same as other medications prescribed for you. Read the directions carefully, and ask your doctor or other care provider to review them with you. FINAL DIAGNOSIS: atrial flutter SIGNATURE: Lamar Nogueira MD PATIENT NAME: Pedro Karimi DATE: July 08, 2024 TIME: 8:59 AM Normal [facility] HISTORY PHYSICALon HISTORY PHYSICAL HNO ID: [id number] Author: KENY ALEXANDER APRN.DOOR HANGER Service: Electrophysiology Author Type: Nurse Practitioner Type: H&P Filed: 07/08/2024 07:57 Note Text: HISTORY AND PHYSICAL: ELECTROPHYSIOLOGY SERVICE SERVICE DATE: 07/08/2024 SERVICE TIME: 7:41 AM PCP: Margot Mai MD ATTENDING: Lamar Nogueira MD Subjective CHIEF COMPLAINT: Persistent atrial fibrillation (HCC) [I48.19] HISTORY OF PRESENT ILLNESS: Sang is a pleasant chronically ill 58 year old male who presents today for cardioversion with Dr. Nogueira. Originally diagnosed with atrial fibrillation in August 2021. Previously underwent cryo PVI in February 2022. Sang reports he is continue to feel poor. He endorses shortness of breath, fatigue, as well as palpitations/flutterin g. In particular he has noticed the shortness of breath/fatigue has gotten worse. He exerts himself physically working at [employer] and is typically on his feet for at least 9 hours at a time lifting a significant amount of weight. Recent 14-day event monitor from May 2024 revealed 100% AF burden with an average heart rate of 120. At that time Lopressor was increased to 75 mg twice daily. Patient denies any improvement in symptoms with this. He has been monitoring his heart rate at home on [employer] mobile and reports rates in the 120s consistently. [id number] of at least 3 secondary to CHF, diabetes, and 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. N.p.o. since 1930 yesterday. He did take his medications with small sips of water this morning. Compliance with Coumadin and denies missing any doses in the last 3 weeks. He takes 12 mg on Wednesdays and with 10 mg on all other days. Medications, allergies, medical history reviewed with patient. Echo from December 2022 revealed normal EF 55% with no significant valvular abnormalities and normal size left atrium. This morning's INR 3.1. INR from 06/25/2024 resulted at 3.0, 04/24/2024 2.9, and 01/25/2024 2.6. Plan is for eventual repeat catheter ablation. Lengthy discussion was had with patient regarding what to expect pre-/intra-/post cardioversion. Topics included procedure overview, risk/benefits, MAC, recovery, post restrictions, and follow-up. Benefits being jewish of normal sinus rhythm. Very low risk of stroke or . Sang verbalized understanding and that he had no further questions at this time. PAST MEDICAL HISTORY Diagnosis Date Anticoagulant long-term use indication: stroke prevention atrial fibrillation At risk for stroke [id number] = 2 (CHF, DM) Atypical atrial flutter [...] balloon catheter cryoablation/PVAI for atrial fibrillation 03/01/2022; [facility] Dr. Nogueira Type II or unspecified type diabetes mellitus without mention of complication, uncontrolled 06/12/2008 PAST SURGICAL HISTORY Procedure Laterality Date AFIB ABLATION/PULM VEIN ISOLATION 03/01/2022 balloon catheter cryoablation/PVAI for atrial fibrillation; [facility] Dr. Nogueira CARDIOVERSION, ELECTIVE, ELECTRICAL 10/27/2021 unsuccessful x2 [facility] CARDIOVERSION, ELECTIVE, ELECTRICAL 09/30/2021 [facility] - Unsuccessful CARDIOVERSION, ELECTIVE, ELECTRICAL 09/27/2022 COLONOSCOPY FLX DX W/COLLJ SPEC WHEN PFRMD 2004 Colonoscopy COLONOSCOPY FLX DX W/COLLJ SPEC WHEN PFRMD 10/14/2010 Colonoscopy/repeat in 10/2015 COLONOSCOPY FLX DX W/COLLJ SPEC WHEN PFRMD 10/29/2015 CORRECT BUNION,SIMPLE 05/14/[address] Velasquez right CORRECT BUNION,SIMPLE 05/31/2011 Bunion, Left ECHO 08/15/2021 EF 15%- [facility] ECHOCARDIOGRAM 01/20/2022 [facility]; see scanned documents LEFT HEART CATH,PERCUTANEOUS 11/25/2021 no significant CAD; LVEF 20%; [facility] REM LESIO TRUNK,ARM,LEG 1.1 -2.0CM [...] Maternal Grandmother Diabetes Paternal Grandmother Social History (more content not included)... Normal [facility] NURSING PROGon 07-08-2024 NURSING PROG HNO ID: [id number] Author: SHANNAN VILLEGAS RN Service: ? Author Type: Registered Nurse Type: Nursing Progress Note Filed: 07/08/2024 07:39 Note Text: 0738 patient admitted to POD, INR 3.1 pre procedure teaching at bedside, review of medications with patient. Normal [facility] PT panel Coag (PPP)on 2024 INR Coag (PPP) [Relative time] 3.3 {INR} High 0.9-1.3 [facility] Comment on above: Order Comment: Speci men Type: BLOOD SPECIMENOrdering Facility: [facility] Address: [address] [place] [address] Result Comment: Allison min K Antagonist (VKA) Therapeutic Range: INR 2 to 3 (Target INR of 2.5) Note: For patients treated with VKA drugs, such as warfarin, the [place] [employer] 2012 Guideline recommends a therapeutic INR range of 2 to 3 (target INR of 2.5). This recommendation includes high-risk patients with antiphospholipid syndrome with previous arterial or venous thromboembolism, current-generation mechanical or bioprosthetic aortic heart valve replacement. Note: Patients with mechanical aortic valve replacement and additional risk factors for thromboembolic events (atrial fibrillation, previous thromboembolism, LV dysfunction, hypercoagulable conditions) or an older generation mechanical AVR (i.e., ball in-Cage) or any mechanical MVR should have a INR therapeutic range of 2.5 to 3.5 (target INR of 3). Amado SEARS, et al. Chest 2012, 141:7S-47S Bernadine SOLANO et al. [facility] 2017, 70: 252-289 Performed By: #### 3 4528-0 ####[facility] LABORATORYCLIA [id number] [place] [address] [place] PT Coag (PPP) [Time] 32.9 s High 9.7-13.0 [facility] Comment on above: Order Comment: Speci men Type: BLOOD SPECIMENOrdering Facility: [facility] Address: [address] [place] [address] Performed By: #### 3 4528-0 ####[facility] LABORATORYCLIA [id number] [place] [address] [facility] CNPNon 06-26-2024 CNPN Telephone (AGCARDPOB ) PEDRO KARIMI ([id number]) 1965 M Date Time Provider Department 06/26/24 LAMAR NOGUEIRA AGCARDPOB During your visit today, we recorded the following information about you: Deisy Smith 06/26/2024 11:40 AM Signed Patient is scheduled for a Cardioversion on 07/[address] Nogueira. The hospital will call the day before between 2-5pm with your arrival time. You should not eat or drink after midnight the day before the procedure. You will need a ice delivery driver when released from the hospital You should continue to take medications as prescribed the morning of the procedure with just a sip of water unless otherwise instructed. *patient to call provider managing insulin for instructions on how/if to hold Spoke with Pedro Karimi on June 26, 2024. Informed of instructions as stated above. Patient verbalized understanding. Claire Pérez RN 06/26/2024 1:59 PM Signed Pt's name has been added to chun procedure board. JANETTE Petersen Stacey, RN 06/26/2024 3:58 PM Addendum PCP faxed most recent INRs 06/25/24= 3.0 04/24/24= 2.9 01/25/24= 2.6 I left message asking pt call our office to confirm if he has only had 3 INR checks in the last year. JANETTE Petersen Taylor, LPN 06/26/2024 3:46 PM Addendum Spoke to Mr. Karimi about INR's. Patient states he had more then 3 INRs in past year. Patient noted he had one done in April of 2024 as well. Patient plans to reach out to PCP to have them send that result as well. Patient also notes he plans to have another INR drawn next week as well at this time. SIOBHAN Edwards Stacey, RN 06/27/2024 7:46 AM Signed Lamar Nogueira MD You14 hours ago (4:59 PM) Yes, they do. Dandy You Lamar Nogueira MD15 hours ago (3:59 PM) SB Do these INRs suffice for DCCV 07/08/24? Claire Holder RN 06/27/2024 8:35 AM Signed Left message on pt's personal voicemail notifying him the INRs from Jan 2024, Apr 2024 and 06/25/24 do suffice for DCCV 07/08/24. Pt encouraged to keep INR visit next week. Office phone number provided for any questions or concerns. Claire Holder RN Allergies As of Date: 06/26/2024 Noted Allergy Reaction PENICILLINS 06/12/2008 2 - Rash Comments: Had reaction as a baby Date Reviewed: 04/22/2024 Reviewed by: Christiane Roe LPN - Fully Assessed Reason for Visit: Preparations For Procedures [899] Prescriptions as of 06/27/2024 - metoprolol tartrate, short acting, 75 mg tab Take 1 tablet by mouth every 12 hours. - dilTIAZem CD (CARDIZEM CD, CARTIA XT) 120 mg 24 hr capsule Take 120 mg by mouth once daily. - FREESTYLE ANNEL 2 READER USE DIRECTED TO CHECK AT LEAST 4 TIMES DAILY - FREESTYLE ANNEL 2 SENSOR kit USE 1 SENSOR EVERY 14 DAYS. - warfarin (COUMADIN) 4 mg tablet Take 8 mg by mouth once daily. - insulin glargine (LANTUS SOLOSTAR, BASAGLAR KWIKPEN) 100 unit/mL (3 mL) Inject 50 Units subcutaneously. Once daily - insulin lispro (HUMALOG KWIKPEN) 100 unit/mL INJECT 5 TO 15 UNITS SUBCUTANEOUSLY WITH MEALS - pen needle, diabetic 31 gauge x 15/64 ndle USE 4 NEEDLES DAILY - warfarin (COUMADIN) 2 mg tablet 10 mg. - warfarin (COUMADIN) 5 mg tablet Take 10 mg by mouth once daily. Currently as of 09/27/2022 he takes 10 mg daily except Wed and Terri takes 12 mg - furosemide (LASIX) 40 mg tablet Take 80 mg by mouth once daily. - spironolactone (ALDACTONE) 25 mg tablet Take 25 mg by mouth once daily. - potassium chloride (K-TAB) 10 mEq tablet Take 10 mEq by mouth once daily. - buPROPion SR (ZYBAN SR; WELLBUTRIN SR) 150 mg 12 hr tablet Take 1 tablet by mouth twice daily. - lisinopril (ZESTRIL) 2.5 mg tablet Take 1 tablet by mouth once daily. - metFORMIN (GLUCOPHAGE) 1,000 mg tablet Take 1 tablet by mouth twice daily with meals. Problem List As Of Date 06/26/2024 Noted Resolved BENIGN NEOPLASM LG BOWEL [D12.6] 06/12/2008 MARIELLA on CPAP [G47.33] 06/12/2008 Type II diabetes mellitus, uncontrolled (HCC) [*06/12/2008 Sebaceous cyst [L72.3] 07/20/2008 09/19/2010 Ingrowing nail [L60.0] 04/12/2009 09/19/2010 Personal history of colonic polyps [Z86.0100] 10/03/2010 09/29/2011 Family history of colon cancer [Z80.0] 10/03/2010 Other acquired deformity of toe [M20.5X9] 05/29/2011 09/29/2011 Hallux valgus (acquired) [M20.10] 05/29/2011 09/29/2011 Abnormality of gait [R26.9] 05/29/2011 09/29/2011 Obesity, Class III, BMI 40-49.9 (morbid obesity*09/29/2011 Tobacco use disorder [F17.200] 05/17/2012 12/31/2021 Routine medical exam [Z00.00] Depressive disorder [F32.A] 08/03/2012 Venous insufficiency (chronic) (peripheral) [I8*01/14/2015 Persistent atrial fibrillation (HCC) [I48.19] 12/31/2021 Primary cardiomyopathy (HCC) [I42.9] 12/31/2021 Chronic HFrEF (heart failure with reduced eject*12/31/2021 At risk for stroke [Z91.89] 12/31/2021 Ant (more content not included)... Normal [facility] CNPN Telephone (AGCARDPOB ) PEDRO KARIMI ([id number]) 1965 M Date Time Provider Department 06/26/24 LAMAR NOGUEIRA AGCARDPOMarla During your visit today, we recorded the following information about you: Shameka Matias 06/26/2024 8:01 AM Signed Received INR's from PCP patient wanted Dr. Nogueira to have a copy. Thanks Shameka Matias Allergies As of Date: 06/26/2024 Noted Allergy Reaction PENICILLINS 06/12/2008 2 - Rash Comments: Had reaction as a baby Date Reviewed: 04/22/2024 Reviewed by: Christiane Roe LPN - Fully Assessed Prescriptions as of 06/26/2024 - metoprolol tartrate, short acting, 75 mg tab Take 1 tablet by mouth every 12 hours. - dilTIAZem CD (CARDIZEM CD, CARTIA XT) 120 mg 24 hr capsule Take 120 mg by mouth once daily. - FREESTYLE ANNEL 2 READER USE DIRECTED TO CHECK AT LEAST 4 TIMES DAILY - FREESTYLE ANNEL 2 SENSOR kit USE 1 SENSOR EVERY 14 DAYS. - warfarin (COUMADIN) 4 mg tablet Take 8 mg by mouth once daily. - insulin glargine (LANTUS SOLOSTAR, BASAGLAR KWIKPEN) 100 unit/mL (3 mL) Inject 50 Units subcutaneously. Once daily - insulin lispro (HUMALOG KWIKPEN) 100 unit/mL INJECT 5 TO 15 UNITS SUBCUTANEOUSLY WITH MEALS - pen needle, diabetic 31 gauge x 15/64 ndle USE 4 NEEDLES DAILY - warfarin (COUMADIN) 2 mg tablet 10 mg. - warfarin (COUMADIN) 5 mg tablet Take 10 mg by mouth once daily. Currently as of 09/27/2022 he takes 10 mg daily except Wed and Terri takes 12 mg - furosemide (LASIX) 40 mg tablet Take 80 mg by mouth once daily. - spironolactone (ALDACTONE) 25 mg tablet Take 25 mg by mouth once daily. - potassium chloride (K-TAB) 10 mEq tablet Take 10 mEq by mouth once daily. - buPROPion SR (ZYBAN SR; WELLBUTRIN SR) 150 mg 12 hr tablet Take 1 tablet by mouth twice daily. - lisinopril (ZESTRIL) 2.5 mg tablet Take 1 tablet by mouth once daily. - metFORMIN (GLUCOPHAGE) 1,000 mg tablet Take 1 tablet by mouth twice daily with meals. Problem List As Of Date 06/26/2024 Noted Resolved BENIGN NEOPLASM LG BOWEL [D12.6] 06/12/2008 MARILELA on CPAP [G47.33] 06/12/2008 Type II diabetes mellitus, uncontrolled (HCC) [*06/12/2008 Sebaceous cyst [L72.3] 07/20/2008 09/19/2010 Ingrowing nail [L60.0] 04/12/2009 09/19/2010 Personal history of colonic polyps [Z86.0100] 10/03/2010 09/29/2011 Family history of colon cancer [Z80.0] 10/03/2010 Other acquired deformity of toe [M20.5X9] 05/29/2011 09/29/2011 Hallux valgus (acquired) [M20.10] 05/29/2011 09/29/2011 Abnormality of gait [R26.9] 05/29/2011 09/29/2011 Obesity, Class III, BMI 40-49.9 (morbid obesity*09/29/2011 Tobacco use disorder [F17.200] 05/17/2012 12/31/2021 Routine medical exam [Z00.00] Depressive disorder [F32.A] 08/03/2012 Venous insufficiency (chronic) (peripheral) [I8*01/14/2015 Persistent atrial fibrillation (HCC) [I48.19] 12/31/2021 Primary cardiomyopathy (HCC) [I42.9] 12/31/2021 Chronic HFrEF (heart failure with reduced eject*12/31/2021 At risk for stroke [Z91.89] 12/31/2021 Anticoagulant long-term use [Z79.01] 12/31/2021 Essential (primary) 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 [I10] 10/04/2021 Status post catheter ablation of atrial fibrill*03/01/2022 Atypical atrial flutter (HCC) [I48.4] 06/16/2022 Type 2 diabetes mellitus (HCC) [E11.9] 07/31/2023 Encounter Status:Closed by SHAME[facility] MATIAS [facility] FRANCISCA Tele[facility] (AGCARDPOB ) PEDRO KARIMI ([id number]) 1965 M Date Time Provider Department 06/23/24 KENY ALEXANDER During your visit today, we recorded the following information about you: Keny Alexander APRN.DOOR HANGER 06/23/2024 4:[address] Nogueira, We previously discussed in March 2024 when I saw patient in office that if his 14-day event monitor revealed persistent atrial fibrillation we would move forward with ablation. Unfortunately patient did not have this hooked up until 05/30/2024. Results indicated 100% AF burden with accelerated average rate of 120. Surface echo from 05/20/2024 revealed normal LV size with mildly decreased systolic function with an EF of 45%. Moderate biatrial dilatation. I made patient aware his drop in ejection fraction is likely due to ongoing A-fib with accelerated rates. Discussed with patient increase of Lopressor to 75 mg twice daily. Patient is additionally on diltiazem CD 120 mg daily as well as Coumadin. We discussed potential ablation to which patient is agreeable to. Please advise. Thanks, Keny Alexander APRN.DOOR HANGER June 23, 2024 4:48 PM Lamar Nogueira MD 06/23/2024 7:40 PM Signed [facility] Electrophysiology (EP) Procedure request submitted for electrical cardioversion which will be scheduled he. He will need documentation of his last month INRs. Procedure request submitted for repeat catheter ablation. This is scheduling out several months. Lamar Nogueira MD June 23, 2024 7:40 PM Lamar Nogueira MD 06/23/2024 7:48 PM Signed Addended by: LAMAR NOGUEIRA on: 06/23/2024 07:48 PM Modules accepted: Claire Kerns RN 06/24/2024 8:54 AM Signed Left message on voicemail requesting pt return call for Dr Nogueira's recommendation and INR results. Office phone number provided. JANETTE Petersen Taylor, LPN 06/24/2024 9:20 AM Addendum Spoke with Pedro Karimi on June 24, 2024. Informed of recommendations / instructions as stated above. Patient notes he has been having his INR checked every 3 months by his PCP. Patient will have his INR results faxed over to for review along with planning to have a new INR taken. Patient would like to move forward with plans per Dr. Nogueira of cardioversion being he then ablation several months later. SIOBHAN Edwards Robert A, MD 06/24/2024 5:46 PM Signed [facility] General Electrophysiology (EP) Noted. Lamar Nogueira MD June 24, 2024 5:46 PM Allergies As of Date: 06/23/2024 Noted Allergy Reaction PENICILLINS 06/12/2008 2 - Rash Comments: Had reaction as a baby Date Reviewed: 04/22/2024 Reviewed by: Christiane Roe LPN - Fully Assessed Reason for Visit: Patient Update [1234] Orders [681] Primary Visit Diagnosis:Persistent atrial fibrillation (HCC) [I48.19] Order(s):metoprolol tartrate, short acting, 75 mg tabTake 1 tablet by mouth every 12 hours.Disp: 180 tabletRfl: 1 SURGICAL REQUEST - ELECTIVE (12/2019) [1031320] Order #: [id number]: 1 SURGICAL REQUEST - ELECTIVE (12/2019) [3502771] Order #: [id number]: 1 Prescriptions as of 06/24/2024 - metoprolol tartrate, short acting, 75 mg tab Take 1 tablet by mouth every 12 hours. - dilTIAZem CD (CARDIZEM CD, CARTIA XT) 120 mg 24 hr capsule Take 120 mg by mouth once daily. - FREESTYLE ANNEL 2 READER USE DIRECTED TO CHECK AT LEAST 4 TIMES DAILY - FREESTYLE ANNEL 2 SENSOR kit USE 1 SENSOR EVERY 14 DAYS. - warfarin (COUMADIN) 4 mg tablet Take 8 mg by mouth once daily. - insulin glargine (LANTUS SOLOSTAR, BASAGLAR KWIKPEN) 100 unit/mL (3 mL) Inject 50 Units subcutaneously. Once daily - insulin lispro (HUMALOG KWIKPEN) 100 unit/mL INJECT 5 TO 15 UNITS SUBCUTANEOUSLY WITH MEALS - pen needle, diabetic 31 gauge x 15/64 ndle USE 4 NEEDLES DAILY - warfarin (COUMADIN) 2 mg tablet 10 mg. - warfarin (COUMADIN) 5 mg tablet Take 10 mg by mouth once daily. Currently as of 09/27/2022 he takes 10 mg daily except Wed and Terri takes 12 mg - furosemide (LASIX) 40 mg tablet Take 80 mg by mouth once daily. - spironolactone (ALDACTONE) 25 mg tablet Take 25 mg by mouth once daily. - potassium chloride (K-TAB) 10 mEq tablet Take 10 mEq by mouth once daily. - buPROPion SR (ZYBAN SR; WELLBUTRIN SR) 150 mg 12 hr tablet Take 1 tablet by mouth twice daily. - lisinopril (ZESTRIL) 2.5 mg tablet Take 1 tablet by mouth once daily. - metFORMIN (GLUCOPHAGE) 1,000 mg tablet Take 1 tablet by mouth twice daily with meals. Problem List As Of Date 06/23/2024 Noted Resolved BENIGN NEOPLASM LG BOWEL [D12.6] 06/12/2008 MARIELLA on CPAP [G47.33] 06/12/2008 Type II diabetes mellitus, uncontrolled (HCC) [*06/12/2008 Sebaceous cyst [L72.3] 07/20/2008 09/19/2010 Ingrowing nail [L60.0] 04/12/2009 09/19/2010 Personal history of (more content not included)... Normal [facility] CNPNon 06-19-2024 CNPN Telephone (ENRIQUETA) PEDRO KARIMI ([id number]) 1965 M Date Time Provider Department 06/19/24 ANISA FERNANDEZ During your visit today, we recorded the following information about you: Allergies As of Date: 06/19/2024 Noted Allergy Reaction PENICILLINS 06/12/2008 2 - Rash Comments: Had reaction as a baby Date Reviewed: 04/22/2024 Reviewed by: Christiane Roe LPN - Fully Assessed Prescriptions as of 06/19/2024 - metoprolol tartrate, short acting, (LOPRESSOR) 50 mg tablet Take 1 tablet by mouth every 12 hours. - metoprolol succinate ER (TOPROL XL) 25 mg 24 hr tablet Take 0.5 tablets by mouth two times a day. - dilTIAZem CD (CARDIZEM CD, CARTIA XT) 120 mg 24 hr capsule Take 120 mg by mouth once daily. - FREESTYLE ANNEL 2 READER USE DIRECTED TO CHECK AT LEAST 4 TIMES DAILY - FREESTYLE ANNEL 2 SENSOR kit USE 1 SENSOR EVERY 14 DAYS. - warfarin (COUMADIN) 4 mg tablet Take 8 mg by mouth once daily. - insulin glargine (LANTUS SOLOSTAR, BASAGLAR KWIKPEN) 100 unit/mL (3 mL) Inject 50 Units subcutaneously. Once daily - insulin lispro (HUMALOG KWIKPEN) 100 unit/mL INJECT 5 TO 15 UNITS SUBCUTANEOUSLY WITH MEALS - pen needle, diabetic 31 gauge x 15/64 ndle USE 4 NEEDLES DAILY - warfarin (COUMADIN) 2 mg tablet 10 mg. - warfarin (COUMADIN) 5 mg tablet Take 10 mg by mouth once daily. Currently as of 09/27/2022 he takes 10 mg daily except Wed and Terri takes 12 mg - furosemide (LASIX) 40 mg tablet Take 80 mg by mouth once daily. - spironolactone (ALDACTONE) 25 mg tablet Take 25 mg by mouth once daily. - potassium chloride (K-TAB) 10 mEq tablet Take 10 mEq by mouth once daily. - buPROPion SR (ZYBAN SR; WELLBUTRIN SR) 150 mg 12 hr tablet Take 1 tablet by mouth twice daily. - lisinopril (ZESTRIL) 2.5 mg tablet Take 1 tablet by mouth once daily. - metFORMIN (GLUCOPHAGE) 1,000 mg tablet Take 1 tablet by mouth twice daily with meals. Problem List As Of Date 06/19/2024 Noted Resolved BENIGN NEOPLASM LG BOWEL [D12.6] 06/12/2008 MARIELLA on CPAP [G47.33] 06/12/2008 Type II diabetes mellitus, uncontrolled (HCC) [*06/12/2008 Sebaceous cyst [L72.3] 07/20/2008 09/19/2010 Ingrowing nail [L60.0] 04/12/2009 09/19/2010 Personal history of colonic polyps [Z86.0100] 10/03/2010 09/29/2011 Family history of colon cancer [Z80.0] 10/03/2010 Other acquired deformity of toe [M20.5X9] 05/29/2011 09/29/2011 Hallux valgus (acquired) [M20.10] 05/29/2011 09/29/2011 Abnormality of gait [R26.9] 05/29/2011 09/29/2011 Obesity, Class III, BMI 40-49.9 (morbid obesity*09/29/2011 Tobacco use disorder [F17.200] 05/17/2012 12/31/2021 Routine medical exam [Z00.00] Depressive disorder [F32.A] 08/03/2012 Venous insufficiency (chronic) (peripheral) [I8*01/14/2015 Persistent atrial fibrillation (HCC) [I48.19] 12/31/2021 Primary cardiomyopathy (HCC) [I42.9] 12/31/2021 Chronic HFrEF (heart failure with reduced eject*12/31/2021 At risk for stroke [Z91.89] 12/31/2021 Anticoagulant long-term use [Z79.01] 12/31/2021 Essential (primary) 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 [I10] 10/04/2021 Status post catheter ablation of atrial fibrill*03/01/2022 Atypical atrial flutter (HCC) [I48.4] 06/16/2022 Type 2 diabetes mellitus (HCC) [E11.9] 07/31/2023 Encounter Status:Closed by ANISA CRENSHAW on 06/19/24 Normal [facility] Echo Complete W/ Contraston 05-20-2024 Echo Complete W/ Contrast [facility] [address] [place] [address] Echo Complete W/ Contrast 05/20/24 1459 MR#: [id number] Acct: [id number] Name: PEDRO KARIMI Rep #: [id number] : 1965 58 From: Buster Harvey MD Attending Dr: Dr. Buster Harvey MD Status: REG CLI Ordering Dr: Buster Harvey MD Date: 05/20/24 Location: [facility] Sex: M C Admitted: Reason For Study: Arrhythmia Procedure This was a 2D Doppler, Color Flow transthoracic echocardiogram. Contrast injection was performed. The study was technically difficult. Exam performed in department. Left Ventricle Mild concentric left ventricular hypertrophy. Normal LV size. Borderline LV systolic function. Estimated LVEF 45%. Stage I diastolic dysfunction. Right Ventricle Normal right ventricle. Atria There is moderate biatrial dilatation. Mitral Valve Trivial mitral valve insufficiency. Tricuspid Valve Mild tricuspid valve insufficiency. Right ventricular systolic pressure estimated to be 43 mmHg. Aortic Valve Trisinus/trileaflet aortic valve. Mild focal aortic valve calcification. Pulmonic Valve The pulmonic valve is not well visualized. Great Vessels Mildly dilated aortic root. Pericardium/Pleural No pericardial effusion. Medication Diluted definity 3ml given slow IV push to enhance endocardial definition. MMode/2D Measurements Calculations LVIDd: 4.7 cm IVSd: 1.3 cm asc Aorta Diam: 3.8 cm LVIDs: 3.3 cm LVPWd: 1.2 cm RVDd: 4.5 cm FS: 28.9 % LAV(MOD-bp): 55.5 ml LVAd ap4: 30.0 cm2 SV(MOD-sp4): 49.0 ml LAV(MOD-bp) Indexed: 21.2 ml/m2 LVLd ap4: 7.5 cm SI(MOD-sp4): 18.7 ml/m2 LAV(MOD-sp2): 70.5 ml EDV(MOD-sp4): 97.0 ml LAV(MOD-sp4): 43.0 ml EDV(sp4-el): 102.5 ml LVAs ap4: 19.2 cm2 LVLs ap4: 6.3 cm ESV(MOD-sp4): 47.9 ml ESV(sp4-el): 49.4 ml EF(MOD-sp4): 50.6 % EF(sp4-el): 51.8 % SV(sp4-el): 53.1 ml LA A4 area: 17.6 cm2 LA dimension(2D): 4.5 cm RA A4 area: 16.7 cm2 TAPSE: 2.0 cm Doppler Measurements Calculations MV E max shawanda: 110.4 cm/sec Lat Peak E' Shawanda: 15.1 cm/sec Med Peak E' Shawanda: 10.2 cm/sec E/E' lat: 7.3 E/E' med: 10.9 Ao V2 max: 110.9 cm/sec LV V1 max: 82.3 cm/sec PA V2 max: 78.6 cm/sec Ao max P.9 mmHg LV V1 max P.7 mmHg Ao V2 mean: 85.9 cm/sec Ao mean P.1 mmHg Ao V2 VTI: 19.0 cm TR max shawanda: 266.6 cm/sec TR max P.4 mmHg ECHO/Echo Complete W/ Contrast Interpretation Summary The study was technically difficult. Mild concentric left ventricular hypertrophy. Borderline LV systolic function. Estimated LVEF 45%. Stage I diastolic dysfunction. Mild tricuspid valve insufficiency. Right ventricular systolic pressure estimated to be 43 mmHg. Mildly dilated aortic root. Ordering Physician: Buster Harvey Referring Physician: Margot Mai Performed By: Lala Lemons, JAIDEN, RVT 05/22/24 0841 Date Buster Harvey MD CC: Dr. Buster Harvey MD; Dr. Margot Mai MD Date Dictated: 05/20/24 1459 Date Transcribed: 05/22/24 0841 Tour Director: Signed [facility] 04-22-2024 [facility] Office Visit (PODIWS ) PEDRO KARIMI ([id number]) 1965 M Date Time Provider Department 04/22/24 3:45 PM LUCAS LUTZ PODIWS During your visit today, we recorded the following information about you: Christiane Roe LPN 04/22/2024 6:19 PM Signed AMB ROOMING INTAKE FLOWSHEET DATA Risk Screening Do you have concerns about personal safety or safety in the home?: No Patient presents with: Left Foot - Established Patient, Follow Up, Diabetic Foot Check Right Foot - Established Patient, Follow Up, Diabetic Foot Check SIOBHAN Eller Matthew 04/22/2024 6:19 PM Signed Last saw pcp: not in chart Subjective: This 58 year old male presents to clinic for diabetic foot check. Patient has the following complaints: painful toenails. He states the nails on the left foot cause him pain. He would like to discuss removal of his toenails once his A1c is below 8. He is here also with callus of both feet. Patient admits to being diabetic for multiple years now. Patient +B/T/N in feet at [...] prevention atrial fibrillation At risk for stroke [id number] = 2 (CHF, DM) Atypical atrial flutter [...] cryoablation/PVAI for atrial fibrillation 03/01/2022; [facility] Dr. Nogueira Type II or unspecified type diabetes mellitus without mention of complication, uncontrolled 06/12/2008 Current Outpatient Medications Medication Sig metoprolol tartrate, short acting, (LOPRESSOR) 50 mg tablet Take 1 tablet by mouth every 12 hours. metoprolol succinate ER (TOPROL XL) 25 mg 24 hr tablet Take 0.5 tablets by mouth two times a day. dilTIAZem CD (CARDIZEM CD, CARTIA XT) 120 mg 24 hr capsule Take 120 mg by mouth once daily. FREESTYLE ANNEL 2 READER USE DIRECTED TO CHECK AT LEAST 4 TIMES DAILY FREESTYLE ANNEL 2 SENSOR kit USE 1 SENSOR EVERY [...] except Wed and Terri takes 12 mg furosemide (LASIX) 40 mg tablet Take 80 [...] tablet by mouth twice daily with meals. No current facility-administered medications for this visit. ALLERGIES Allergen Reactions Penicillins Rash Had reaction as a baby PAST SURGICAL HISTORY Procedure Laterality Date AFIB ABLATION/PULM VEIN ISOLATION 03/01/2022 balloon catheter cryoablation/PVAI for atrial fibrillation; [facility] Dr. Nogueira CARDIOVERSION, ELECTIVE, ELECTRICAL 10/27/2021 unsuccessful x2 [facility] CARDIOVERSION, ELECTIVE, ELECTRICAL 09/30/2021 [facility] - Unsuccessful CARDIOVERSION, ELECTIVE, ELECTRICAL 09/27/2022 COLONOSCOPY FLX DX W/COLLJ SPEC WHEN PFRMD 2004 Colonoscopy COLONOSCOPY FLX DX W/COLLJ SPEC WHEN PFRMD 10/14/2010 Colonoscopy/repeat in 10/2015 COLONOSCOPY FLX DX W/COLLJ SPEC WHEN PFRMD 10/29/2015 CORRECT BUNION,SIMPLE 05/14/[address] Velasquez right CORRECT BUNION,SIMPLE 05/31/2011 Bunion, Left ECHO 08/15/2021 EF 15%- [facility] (more content not included)... Normal [facility] Office Visit Reporton 2023 Office Visit Report [facility] [address] [place] [address] OFFICE VISIT Date of Service: 04/21/24 MR#: [id number] Acct: [id number] Patient: PEDRO KARIMI Rep #: [id number] : 1965 Provider: Dr. Buster Harvey MD Age/Sex: 58/M Location: [facility] Status: Signed Intake Vital Signs 04/17/24 08:59 04/21/24 16:03 Height 6 ft 2 in Weight: 313 lb BMI 40.1 BP 127/85 H 126/87 H Blood Pressure Location Lt brachial Lt brachial Position Sitting Sitting Respiration 18 16 Pulse 132 H 126 H Pulse Source NIBP NIBP Intake Visit Reasons: BP CHECK Chief Complaint: Consult Cscope Allergies Penicillins Allergy (Verified 04/17/24 14:48) PT UNSURE OF REACTION Nursing Note Patient presents for BP/HR check. Denies any acute pain, discomfort, or needs at this time. BP: 126/87; HR: 126. Asymptomatic at this time. 06/12/24 1126 Date Buster Harvey MD Cosigner Signature: Date (if applicable) CC: Normal [facility] 12 Lead EKG performed by [facility] on 04-17-2024 12 Lead EKG performed by [id number] [place] [address] 12 Lead EKG performed by [facility] 04/17/24 1447 MR#: [id number] Acct: [id number] Name: PEDRO KARIMI Rep #: [id number] : 1965 58 From: Buster Harvey MD Attending Dr: Dr. Buster Harvey MD Status: DEP AMB Ordering Dr: Buster Harvey MD Date: 04/17/24 Location: [facility] Sex: M C Admitted: [facility]/12 Lead EKG performed by [facility] ECG Report Interpretation ----Atrial fibrillation -RSR(V1) -nondiagnostic. ABNORMAL RHYTHMElectronically signed on 06/09/2024 at 11:[address] Buster Harvey [employer] Version [id number] 06/09/24 1135 Date Buster Harvey MD CC: Dr. Margot Mai MD Date Dictated: 12/05/24 1447 Date Transcribed: 04/17/241446 Tour Director: LUIS ANTONIO Signed Normal [facility] Cardiology Visit Reporton Cardiology Visit Report [facility] [address] [place] [address] OFFICE VISIT Date of Service: 04/17/24 MR#: [id number] Acct: [id number] Name: PEDRO KARIMI Rep #: [id number] : 1965 Provider: Dr. Buster Harvey MD Age/Sex: 58/M Location: [facility] Status: Signed HPI HPI History of Present Illness Details: This pleasant gentleman is here for follow-up visit. He has history of atrial fibrillation having failed an ablation in the past. Also history of nonischemic cardiomyopathy, most likely tachycardia induced. EF improved from 15% to 47% on last echocardiogram done in 2021. Coronary angiography failed to show any angiographic CAD. About 2 months ago, patient ran out of his carvedilol. He was taking 25 mg twice daily. According to him, he made a call to our office for refill but that was never refilled. He resumed that it was to be discontinued. 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 He has been taking metoprolol 12.5 mg twice daily. Denies any chest pains. Chronic shortness of breath with exertion. Denies any palpitations. No orthopnea or PND. Chronic lower extremity edema for which he wears compression stockings. He has sleep apnea and wears CPAP at night. Intake Vital Signs 05/17/23 08:39 04/17/24 08:59 Height 6 ft 2 in 6 ft 2 in Weight: 313 lb BMI 40.1 BP 127/85 H Blood Pressure Location Lt brachial Position Sitting Respiration 18 Pulse 132 H Pulse Source NIBP Intake Visit Reasons: OVERDUE FOR OV/LAST SEEN 06/06--NEEDS EKG Automotive Upholsterer Required: No Accompanied by: Self Is patient in pain?: No Allergies Penicillins Allergy (Verified 04/17/24 14:48) PT UNSURE OF REACTION Medications ???Medication ???Instructions ???Recorded ???Confirmed ???Type bupropion HCl 150 mg tablet,12 hr 150 mg PO DAILY antidepressant 08/14/21 04/14/24 History sustained-release metformin 1,000 mg tablet 1,000 mg PO BID dm 08/14/21 04/14/24 History lisinopril 2.5 mg tablet 2.5 mg PO DAILY 05/22/22 04/14/24 History insulin glargine 100 unit/mL (3 60 unit subcut QHS 05/17/23 04/14/24 History mL) subcutaneous pen (Lantus Solostar U-100 Insulin) potassium chloride 10 mEq 10 meq PO DAILY 05/17/23 04/14/24 History tablet,extended release warfarin 2 mg tablet 2 mg PO .COMPLEX #90 tabs 06/07/23 04/14/24 Rx furosemide 40 mg tablet 40 mg PO BID #60 tabs 09/04/23 04/14/24 Rx diltiazem HCl 120 mg 120 mg PO DAILY #90 caps 09/24/23 04/14/24 Rx capsule,extended release 24 hr spironolactone 25 mg tablet See Rx Instructions .Route 09/24/23 04/14/24 Rx .COMPLEX #30 tabs warfarin 5 mg tablet 5 mg PO .COMPLEX #90 tabs 04/15/24 04/17/24 Rx metoprolol succinate 25 mg 12.5 mg PO BID 04/17/24 04/17/24 History tablet,extended release 24 hr Ejection fraction %: 47 PFSH Medical History Atrial fibrillation with rapid ventricular response Cardiology follow-up encounter COPD (chronic obstructive pulmonary disease) CPAP (continuous positive airway pressure) dependence Diabetes Essential 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 Former smoker HFrEF (heart failure with reduced ejection fraction) History of atrial fibrillation History of echocardiogram Hx of colonic polyps Insulin dependent diabetes mellitus assisted current use of anticoagulant MRSA infection Non-ischemic cardiomyopathy MARIELLA (obstructive sleep apnea) Persistent atrial fibrillation Restless legs Sleep apnea Wears glasses Surgical History Bunion H/O hernia repair History of cardiac catheterization History of cardioversion (10/27/21) Status post cryoablation of arrhythmia (03/01/22) Family History Other COPD (chronic obstructive pulmonary disease) Colon cancer Heart disease Lung cancer Testicular cancer Social History Smoking Status: Former smoker alcohol intake: never substance use type: does not use caffeine: Yes Type: coffee Number of servings: 1 ROS Const Const: Negative for fatigue, weakness, headache(s) or weight gain ENT ENT: Negative for headache(s), dizziness, Nosebleed/epistaxis or balance problems Cardio Chest Pain: No Palpitations: Yes Edema: Bilateral Muscle aches with walking: None Resp Respiratory: Positive for SOB with activity; Negative for SOB at rest or SOB orthopnea SOB lying down GI GI: Negative nausea, vomiting or heartburn Musc Musc: Negative for muscle aches/ myalgia, muscle weakness, joint pain or balance problems Neuro Neuro: Negative for dizziness, lightheadedness, near syncope, syncope, headache(s) or weakness Endo Endo: Negati (more content not included)... Normal [facility] 04-04-2024 FRANCISCA Telephone ([facility]) PEDRO KARIMI ([id number]) 1965 M Date Time Provider Department 04/04/24 KENY ALEXANDER During your visit today, we recorded the following information about you: Keny Alexander APRN.CNP 04/04/2024 8:29 AM Signed Please let patient know per our discussion during his office visit on 03/24/2024 he needs to have an EKG completed. His Coreg was discontinued at that time and he was placed on Toprol XL twice daily for accelerated rates. I do not have the capability of ordering a EKG at [facility]. I have placed a physical standing order for EKG. I do recommend he follows up with Dr. Marcus's office given this is his established general continuous pickling line pickler helper and if I remember correctly he was overdue for follow-up. Please remind patient of importance of having 14-day extended quality assurance monitor hooked up/provide central scheduling's number to arrange. Should monitor reveal persistent atrial fibrillation plan would be to move forward with cardioversion as well as potential repeat catheter ablation. Thanks, Keny Alexander APRN.DOOR HANGER April 04, 2024 8:26 AM Lexis Hendrix RN 04/07/2024 12:15 PM Signed Left message for pt to call back to discuss. JANETTE Frausto Jessica, LPN 04/07/2024 4:34 PM Signed I spoke to Pedro Karimi and informed them of Keny's response and recommendations. Patient voiced understanding and states he will set up monitor and EKG in [place]. Zee Joya LPN Allergies As of Date: 04/04/2024 Noted Allergy Reaction PENICILLINS 06/12/2008 2 - Rash Comments: Had reaction as a baby Date Reviewed: 03/24/2024 Reviewed by: Keny Alexander APRN.DOOR HANGER - Fully Assessed Reason for Visit: Patient Update [1234] Orders [681] Primary Visit Diagnosis:Persistent atrial fibrillation (HCC) [I48.19] Order(s):ECG COMPLETE [ECG01] Order #: [id number] FUTURE Prescriptions as of 04/07/2024 - metoprolol succinate ER (TOPROL XL) 25 mg 24 hr tablet Take 0.5 tablets by mouth two times a day. - dilTIAZem CD (CARDIZEM CD, CARTIA XT) 120 mg 24 hr capsule Take 120 mg by mouth once daily. - FREESTYLE ANNEL 2 READER USE DIRECTED TO CHECK AT LEAST 4 TIMES DAILY - FREESTYLE ANNEL 2 SENSOR kit USE 1 SENSOR EVERY 14 DAYS. - warfarin (COUMADIN) 4 mg tablet Take 8 mg by mouth once daily. - insulin glargine (LANTUS SOLOSTAR, BASAGLAR KWIKPEN) 100 unit/mL (3 mL) Inject 50 Units subcutaneously. Once daily - insulin lispro (HUMALOG KWIKPEN) 100 unit/mL INJECT 5 TO 15 UNITS SUBCUTANEOUSLY WITH MEALS - pen needle, diabetic 31 gauge x 15/64 ndle USE 4 NEEDLES DAILY - warfarin (COUMADIN) 2 mg tablet 10 mg. - warfarin (COUMADIN) 5 mg tablet Take 10 mg by mouth once daily. Currently as of 09/27/2022 he takes 10 mg daily except Wed and Terri takes 12 mg - furosemide (LASIX) 40 mg tablet Take 80 mg by mouth once daily. - spironolactone (ALDACTONE) 25 mg tablet Take 25 mg by mouth once daily. - potassium chloride (K-TAB) 10 mEq tablet Take 10 mEq by mouth once daily. - buPROPion SR (ZYBAN SR; WELLBUTRIN SR) 150 mg 12 hr tablet Take 1 tablet by mouth twice daily. - lisinopril (ZESTRIL) 2.5 mg tablet Take 1 tablet by mouth once daily. - metFORMIN (GLUCOPHAGE) 1,000 mg tablet Take 1 tablet by mouth twice daily with meals. Problem List As Of Date 04/04/2024 Noted Resolved BENIGN NEOPLASM LG BOWEL [D12.6] 06/12/2008 MARIELLA on CPAP [G47.33] 06/12/2008 Type II diabetes mellitus, uncontrolled (HCC) [*06/12/2008 Sebaceous cyst [L72.3] 07/20/2008 09/19/2010 Ingrowing nail [L60.0] 04/12/2009 09/19/2010 Personal history of colonic polyps [Z86.0100] 10/03/2010 09/29/2011 Family history of colon cancer [Z80.0] 10/03/2010 Other acquired deformity of toe [M20.5X9] 05/29/2011 09/29/2011 Hallux valgus (acquired) [M20.10] 05/29/2011 09/29/2011 Abnormality of gait [R26.9] 05/29/2011 09/29/2011 Obesity, Class III, BMI 40-49.9 (morbid obesity*09/29/2011 Tobacco use disorder [F17.200] 05/17/2012 12/31/2021 Routine medical exam [Z00.00] Depressive disorder [F32.A] 08/03/2012 Venous insufficiency (chronic) (peripheral) [I8*01/14/2015 Persistent atrial fibrillation (HCC) [I48.19] 12/31/2021 Primary cardiomyopathy (HCC) [I42.9] 12/31/2021 Chronic HFrEF (heart failure with reduced eject*12/31/2021 At risk for stroke [Z91.89] 12/31/2021 Anticoagulant long-term use [Z79.01] 12/31/2021 Essential (primary) 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 [I10] 10/04/2021 Status post catheter ablation of atrial fibrill*03/01/2022 Atypical atrial flutter (HCC) [I48.4] 06/16/2022 Type 2 diabetes mellitus (HCC) [E11.9] 07/31/2023 Encounter Status:Closed by KENY ALEXANDER on 04/04/24 Normal [facility] CNOVon 03-24-2024 CNOV Office Visit (AGCARDPOB) PEDRO KARIMI ([id number]) 1965 M Date Time Provider Department 03/24/24 8:30 AM KENY ALEXANDER AGCARDPOB During your visit today, we recorded the following information about you: Pulse Blood pressure Weight Height 132/minute 116/73 137 kg 1.88 m Sulma [place] MA 03/24/2024 8:19 AM Signed Patient has no cardiac complaints today. Keny Alexander APRN.DOOR HANGER 03/24/2024 8:51 AM Signed [facility] Cardiology Electrophysiology PRIMARY CARE PHYSICIAN: Margot Mai [address] [place] [address] CHIEF COMPLAINT: Persistent atrial fibrillation. HISTORY OF PRESENT ILLNESS copied from Dr. Nogueira's office note on 09/17/2023: Mr. Karimi presents for follow up evaluation for arrhythmia. He has [employer], checks his heart rhythm regularly, initially once a week but more recently about once a month. No symptoms suggestive of arrhythmia but he did not have much symptoms previously. He denies chest pain, shortness of breath, orthopnea, palpitations, PND, lightheadedness or syncope. I have confirmed and edited as necessary, the PFSH and ROS obtained by others. Interval History: Mr. Karimi is a pleasant 58-year-old gentleman who presents today for follow-up regarding history of persistent atrial fibrillation. Overall Mr. Karimi reports he has been feeling well. He works for [employer] and is on his feet for 9 hours at a time. He reports his job is physical requiring a lot of lifting and walking. He attributes this to his success as to why has been feeling better and has been able to lose significant amount of weight. Currently down 46 pounds from her visit last year and I congratulated him on this. We did discuss unfortunately he is out of rhythm. He denies any symptoms. EKG showed atrial flutter with a ventricular rate of 125. He did mention he has been off of his Coreg for a few months now. He apparently had requested a refill through his established general continuous pickling line pickler helper to [place] but did not hear back. I advised patient his Coreg is more indicated for blood pressure control we will switch him to Topol XL 12.5 mg twice daily to reduce the excitability of the heart/improve rates. I advised patient I would like to check a 14-day extended quality assurance monitor. I will contact his continuous pickling line pickler helper in [place] and request they perform an EKG in a week. We discussed potential treatment options including cardioversion, repeat catheter ablation, as well as drug loading. Patient verbalized he does not have a preference. Will discuss with attending. Requested patient get a blood pressure cuff and check his BP and heart rate in the mornings after starting Toprol-XL for 1 week. Also requested he check an EKG on Melinta daily. Patient previously underwent cryo PVI in February 2022. He is compliant with his Coumadin taking 10 mg all days of the week except for Wednesdays and when he takes 12 mg. INR is monitored by his PCP every 3 months and he reports most recent of 2.9. Hypothetical follow-up for 6 months. PAST MEDICAL HISTORY Diagnosis Date Anticoagulant long-term use indication: stroke prevention atrial fibrillation At risk for stroke [id number] = 2 (CHF, DM) Atypical atrial flutter [...] balloon catheter cryoablation/PVAI for atrial fibrillation 03/01/2022; [facility] Dr. Nogueira Type II or unspecified type diabetes mellitus without mention of complication, uncontrolled 06/12/2008 PAST SURGICAL HISTORY Procedure Laterality Date AFIB ABLATION/PULM VEIN ISOLATION 03/01/2022 balloon catheter cryoablation/PVAI for atrial fibrillation; [facility] Dr. Nogueira CARDIOVERSION, ELECTIVE, ELECTRICAL 10/27/2021 unsuccessful x2 [facility] CARDIOVERSION, ELECTIVE, ELECTRICAL 09/30/2021 [facility] - Unsuccessful CARDIOVERSION, ELECTIVE, ELECTRICAL 09/27/2022 COLONOSCOPY FLX DX W/COLLJ SPEC WHEN PFRMD 2004 Colonoscopy COLONOSCOPY FLX DX W/COLLJ SPEC WHEN PFRMD 10/14/2010 Colonoscopy/repeat in 10/2015 COLONOSCOPY FLX DX W/COLLJ SPEC WHEN PFRMD 10/29/2015 CORRECT BUNION,SIMPLE 05/14/[address] Ron reich (more content not included)... [facility] PEDRO KARIMI ([id number]) 1965 M Date Time Provider Department 03/24/24 KENY ALEXANDER During your visit today, we recorded the following information about you: Keny Alexander APRN.DOOR HANGER 03/24/2024 9:[address] Nogueira, I saw Pedro in office today. He has been doing well. He is down over 40 pounds since our last visit in March 2023. 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 He has been tolerating this well. Unfortunately EKG showed atrial flutter with RVR today at a rate of 125. Asymptomatic with arrhythmia. He has been off his Coreg for a few months. I discontinued this and started him on Toprol-XL 12.5 mg twice daily. Ordered a 14-day extended quality assurance monitor and requested he have an EKG performed the Dr. Marcus's office in about a week. I spoke with their coordinator Deedee regarding this. We discussed various treatment options including cardioversion, repeat PVI, or drug loading. Patient does not have a preference. Please advise. Thanks, Keny Alexander APRN.DOOR HANGER March 24, 2024 8:59 AM Lamar Nogueira MD 03/25/2024 3:25 PM Signed [facility] General Electrophysiology (EP) Reviewed case. If the arrhythmia is persistent I recommend electrical cardioversion and also set up repeat catheter ablation. Lamar Nogueira MD March 25, 2024 3:25 PM Allergies As of Date: 03/24/2024 Noted Allergy Reaction PENICILLINS 06/12/2008 2 - Rash Comments: Had reaction as a baby Date Reviewed: 03/24/2024 Reviewed by: Keny Alexander APRN.DOOR HANGER - Fully Assessed Reason for Visit: Patient Update [1234] Results [95] Prescriptions as of 03/25/2024 - metoprolol succinate ER (TOPROL XL) 25 mg 24 hr tablet Take 0.5 tablets by mouth two times a day. - dilTIAZem CD (CARDIZEM CD, CARTIA XT) 120 mg 24 hr capsule Take 120 mg by mouth once daily. - FREESTYLE ANNEL 2 READER USE DIRECTED TO CHECK AT LEAST 4 TIMES DAILY - FREESTYLE ANNEL 2 SENSOR kit USE 1 SENSOR EVERY 14 DAYS. - warfarin (COUMADIN) 4 mg tablet Take 8 mg by mouth once daily. - insulin glargine (LANTUS SOLOSTAR, BASAGLAR KWIKPEN) 100 unit/mL (3 mL) Inject 50 Units subcutaneously. Once daily - insulin lispro (HUMALOG KWIKPEN) 100 unit/mL INJECT 5 TO 15 UNITS SUBCUTANEOUSLY WITH MEALS - pen needle, diabetic 31 gauge x 15/64 ndle USE 4 NEEDLES DAILY - warfarin (COUMADIN) 2 mg tablet 10 mg. - warfarin (COUMADIN) 5 mg tablet Take 10 mg by mouth once daily. Currently as of 09/27/2022 he takes 10 mg daily except Wed and Terri takes 12 mg - furosemide (LASIX) 40 mg tablet Take 80 mg by mouth once daily. - spironolactone (ALDACTONE) 25 mg tablet Take 25 mg by mouth once daily. - potassium chloride (K-TAB) 10 mEq tablet Take 10 mEq by mouth once daily. - buPROPion SR (ZYBAN SR; WELLBUTRIN SR) 150 mg 12 hr tablet Take 1 tablet by mouth twice daily. - lisinopril (ZESTRIL) 2.5 mg tablet Take 1 tablet by mouth once daily. - metFORMIN (GLUCOPHAGE) 1,000 mg tablet Take 1 tablet by mouth twice daily with meals. Problem List As Of Date 03/24/2024 Noted Resolved BENIGN NEOPLASM LG BOWEL [D12.6] 06/12/2008 MARIELLA on CPAP [G47.33] 06/12/2008 Type II diabetes mellitus, uncontrolled (HCC) [*06/12/2008 Sebaceous cyst [L72.3] 07/20/2008 09/19/2010 Ingrowing nail [L60.0] 04/12/2009 09/19/2010 Personal history of colonic polyps [Z86.0100] 10/03/2010 09/29/2011 Family history of colon cancer [Z80.0] 10/03/2010 Other acquired deformity of toe [M20.5X9] 05/29/2011 09/29/2011 Hallux valgus (acquired) [M20.10] 05/29/2011 09/29/2011 Abnormality of gait [R26.9] 05/29/2011 09/29/2011 Obesity, Class III, BMI 40-49.9 (morbid obesity*09/29/2011 Tobacco use disorder [F17.200] 05/17/2012 12/31/2021 Routine medical exam [Z00.00] Depressive disorder [F32.A] 08/03/2012 Venous insufficiency (chronic) (peripheral) [I8*01/14/2015 Persistent atrial fibrillation (HCC) [I48.19] 12/31/2021 Primary cardiomyopathy (HCC) [I42.9] 12/31/2021 Chronic HFrEF (heart failure with reduced eject*12/31/2021 At risk for stroke [Z91.89] 12/31/2021 Anticoagulant long-term use [Z79.01] 12/31/2021 Essential (primary) 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 [I10] 10/04/2021 Status post catheter ablation of atrial fibrill*03/01/2022 Atypical atrial flutter (HCC) [I48.4] 06/16/2022 Type 2 diabetes mellitus (HCC) [E11.9] 07/31/2023 Encounter Status:Closed by KENY ALEXANDER on 03/24/24 Normal [facility] ECG B/O W INTERP (MED OFFICE )on 03-24-2024 Atrial flutter with RVR with ventricular rate of 125. QRS 92. QTc 479. [facility] CNOVon 01-15-2024 CNOV Office Visit (PODIWS ) PEDRO KARIMI ([id number]) 1965 M Date Time Provider Department 01/15/24 3:45 PM LUCAS LUTZ PODIWS During your visit today, we recorded the following information about you: Kelsea Constantino RN 01/16/2024 7:43 AM Signed Patient presents with: Left Foot - Established Patient, Follow Up, Diabetic Foot Check Right Foot - Established Patient, Follow Up, Diabetic Foot Check Patient presents for 3 month follow up diabetic foot/nail care. Also due for diabetic foot exam. SHE 10/11/23 Lucas Lutz 01/16/2024 7:43 AM Signed Last saw pcp: not in chart Subjective: Patient presents to clinic c/o painful toenails. They state that the nails are especially painful with shoe gear and pressure. Patient admits to being diabetic. No other pedal complaints at this time. Patient states no change in medications or medical history since last visit. Objective: Patient presents to clinic ambulating in sneakers Vasc: DP and PT pulses are palpable bilateral. CFT is less than 5 seconds bilateral. Skin temperature is warm to cool proximal to distal bilateral. There is no edema or varicosities noted. Neuro: Protective sensation is intact to the foot and toes when tested with the 5.07 SWM bilateral. Vibratory sensation is decreased at the hallux IPJ bilateral. The hallux is downgoing bilateral. Derm: Nails 1-5 left and 2-5 right are painful, discolored-yellow, thick, crumbly, dystrophic and with subungal debris. Skin is of normal turgor, texture and hair growth is present bilateral. There are no hyperkeratosis, ulcerations, scars, verruca or other lesions noted. Healed blister of left hallux. Ortho: Muscle strength is 5/5 for all pedal groups tested. Ankle joint DF is full with the knee extended with no pain or crepitus noted. 1st MPJ ROM is full bilateral. Recurrent hallux valgus deformity b/l. Assessment: (E11.42) Diabetic polyneuropathy associated with type 2 diabetes mellitus (HCC) (primary encounter diagnosis) (B35.1) Onychomycosis (M79.675) Pain in toe of left foot (M79.674) Pain in toe of right foot (L84) Callus of foot Plan: Patient was seen and evaluated. Nails 1-5 left and 2-5 right were debrided in length and thickness. Discussed removal of toenails but needs to have A1c below 8. Discussed healed blister of left hallux. Likely caused by rubbing in shoes. Would recommend wider shoes. Patient was instructed on the continued importance of diabetic foot care along with proper diet and keeping their blood sugar under control to prevent complications. Patient is to RTC in 3-4 months. YOLIE Vazquez Matthew 01/15/2024 4:32 PM Signed Diabetes Foot Care Instructions When you have [...] (or decreased sensation in your feet) a grading machine operator should always cut your toenails. Be Careful [...] wool, or a cotton-wool blend). Wear special (more content not included)... Normal [facility] ECG B/O W INTERP (MED OFFICE )on 09-17-2023 Sinus rhythm 71 bpm; normal conduction intervals (ND 196 ms, QRS 94 ms); QTc 428 ms [facility] No Panel InformationOrdered By: Margot Mai on 07-26-2023 Urine Microalbumin/Creatinine Ratio TNP [facility] Comment on above: Test not performed Thin prep Papanicolaou smear with manual screeningOrdered By: Margot Mai on 07-26-2023 Thin prep Papanicolaou smear with manual screening < 5.0 mg/L NO RANGE EST. [facility] Urine creatinine measurement (mass/volume)Ordered By: Margot Mai on 07-26-2023 Creatinine (U) [Mass/Vol] mg/dL NO RANGE EST. [facility] Absolute lymphocyte countOrd ered By: Monisha Torrez on 04-28-2023 Lymphocytes Auto (Unsp spec) [#/Vol] 0.90 10*3/uL 0.83-4.51 [facility] Basophil percentageOrdered B y: Monisha Torrez on 04-28-2023 Basophils/100 WBC (Bld) 0.7 % 0-1 [facility] Bilirubin [Mass/Vol] 0.30 mg/dL 0.20-1.00 [facility] Comment on above: For patients on eltr ombopag therapy, use of Dimension [place] TBIL is not recommended. Chloride [Moles/Vol] 104 mmol/L 98-107 [facility] Cholesterol [Mass/Vol] 148 mg/dL <200 [facility] Comment on above: <200 mg/dL Desirable 200-240 mg/dL Borderline >240 mg/dL High Risk Eosinophils/100 WBC (Bld) 3.0 % 0-5 [facility] Glucose [Mass/Vol] 262 mg/dL 74-106 [facility] Comment on above: Glucose result great er than or equal to 200 mg/dLsuggests DIABETES MELLITUS per A.D.A. criteria. Neutrophils (Bld) [#/Vol] 3.5 10*3/uL 2.0-7.7 [facility] Neutrophils/100 WBC (Bld) 66.3 % 47-70 [facility] Potassium [Moles/Vol] 4.5 mmol/L 3.5-5.1 [facility] Protein [Mass/Vol] 7.5 g/dL 6.4-8.2 [facility] Sodium [Moles/Vol] 135 mmol/L 136-145 [facility] Triglyceride [Mass/Vol] 138 mg/dL <199 [facility] Comment on above: The drugs N-Acetylcy steine and Metamizole may falsely depress this assay.Serum Triglycerides Reference Interval Normal <150 mg/dL Borderline high 150 - 199 mg/dL High 200 - 499 mg/dL Very High > or = 500 mg/dL WBC (Bld) [#/Vol] 5.3 10*3/uL 4.4-11.0 [facility] Blood erythrocytes count (nu mber/volume)Ordered By: Monisha Torrez on 04-28-2023 RBC (Bld) [#/Vol] 5.00 10*6/uL 4.6-6.2 [facility] Blood hemoglobin measurement (mass/volume)Ordered By: Monisha Torrez on 04-28-2023 Hemoglobin (Bld) [Mass/Vol] 12.7 g/dL 13.0-16. 5 [facility] Blood lymphocytes/100 leukoc ytesOrdered By: Monisha Torrez on 04-28-2023 Lymphocytes/100 WBC (Bld) 16.9 % 19-41 [facility] Blood monocytes/100 leukocyt esOrdered By: Monisha Torrez on 04-28-2023 Monocytes/100 WBC (Bld) 8.8 % 0-10 [facility] Blood platelet mean volumeOr dered By: Monisha Torrez on 04-28-2023 Platelet mean volume (Bld) [Entitic vol] 10.9 fL 6.2-12.0 [facility] Determination of erythrocyte mean corpuscular volume (MCV)Ordered By: Monisha Torrez on 04-28-2023 MCV (RBC) [Entitic vol] 82.8 fL 80-94 [facility] Hematocrit Auto (Bld) [Volum e fraction]Ordered By: Monisha Torrez on 04-28-2023 Hematocrit (Bld) [Volume fraction] 41.4 % 40-54 [facility] INR in Blood by Coagulation assayOrdered By: Monisha Torrez on 04-28-2023 INR Coag (Bld) [Relative time] 3.2 {INR} [facility] Laboratory - Chemistry and C hemistry - challengeOrdered By: Monisha Torrez on 04-28-2023 ALP [Catalytic activity/Vol] 87 U/L 45-117 [facility] ALT [Catalytic activity/Vol] 25 U/L 16-61 [facility] CO2 [Moles/Vol] 29.0 mmol/L 21.0-32.0 [facility] Globulin (S) [Mass/Vol] 4.3 g/dL 2.2-4.2 [facility] Urea nitrogen/Creatinine [Mass ratio] 21.4 mg/mg 10-20 [facility] Laboratory - CoagulationOrde red By: Monisha Torrez on 04-28-2023 PT Coag (PPP) [Time] 33.1 s 11.7-14.9 [facility] Laboratory - Hematology and Cell countsOrdered By: Monisha Torrez on 04-28-2023 Erythrocyte distribution width (RBC) [Entitic vol] 45.8 fL 35.1-43.9 [facility] Erythrocyte distribution width (RBC) [Ratio] 15.2 % 11.6-14.6 [facility] Immature granulocytes/100 WBC (Bld) 4.300 % 0.0-0.9 [facility] Comment on above: IG% - Immature Granu locytes (promyelocytes, myelocytes and metamyelocytes) > 1% indicates that a LEFT SHIFT is Present. MCH (RBC) [Entitic mass] 25.4 pg 27.0-32.0 [facility] Nucleated RBC/100 WBC (Bld) [Ratio] 0 % 0-5 [facility] MCHC Auto (RBC) [Mass/Vol]Or dered By: Monisha Torrez on 04-28-2023 MCHC (RBC) [Mass/Vol] 30.7 g/dL 32-36 [facility] No Panel InformationOrdered By: Monisha Torrez on 04-28-2023 Estimated GFR (MDRD) Amer 107 mL/min >60 [facility] Comment on above: GFR Calc Estimated GFR (MDRD) Non-Af Amer 89 mL/min >60 [facility] Comment on above: Non- GFR Calc Platelets bldOrdered By: Eduard Torrez on 04-28-2023 Platelets (Bld) [#/Vol] 210 10*3/uL 150-450 [facility] Serum or plasma albumin brian urement (mass/volume)Ordered By: Monisha Torrez on 04-28-2023 Albumin [Mass/Vol] 3.2 g/dL 3.2-5.0 [facility] Serum or plasma albumin/glob ulin mass ratioOrdered By: Monisha Torrez on 04-28-2023 Albumin/Globulin [Mass ratio] 0.7 {ratio} 0.9-2.4 [facility] Serum or plasma calcium brian urement (mass/volume)Ordered By: Monisha Torrez on 04-28-2023 Calcium [Mass/Vol] 9.1 mg/dL 8.5-10.1 [facility] Serum or plasma cholesterol in HDL measurement (mass/volume)Ordered By: Monisha Torrez on 04-28-2023 Cholesterol in HDL [Mass/Vol] 49 mg/dL >40 [facility] Comment on above: The drugs N-Acetylcy steine and Metamizole may falsely depress this assay. Reference Range HDL <40 mg/dL Low HDL Cholesterol HDL >or= 60 mg/dL High HDL Cholesterol Serum or plasma cholesterol in VLDL measurement (mass/volume)Ordered By: Monisha Torrez on 04-28-2023 Cholesterol in VLDL [Mass/Vol] 28 mg/dL 5-40 [facility] Serum or plasma creatinine m easurement (mass/volume)Ordered By: Monisha Torrez on 04-28-2023 Creatinine [Mass/Vol] 0.93 mg/dL 0.70-1.30 [facility] Comment on above: The validity of the calculated GFR & GFRAA in patients over 70 years has not been determined. Clinical correlation is essential. Serum or plasma low density lipoprotein (LDL) cholesterol measurement (mass/volume)Ordered By: Monisha Torrez on 04-28-2023 Cholesterol in LDL [Mass/Vol] 71 mg/dL 0-130 [facility] Serum or plasma urea nitroge n measurement (mass/volume)Ordered By: Monisha Torrez on 04-28-2023 Urea nitrogen [Mass/Vol] 20 mg/dL 7-18 [facility] Thin prep Papanicolaou smear with manual screeningOrdered By: Monisha Torrez on 04-28-2023 Thin prep Papanicolaou smear with manual screening 15 U/L 15-37 [facility] Thin prep Papanicolaou smear with manual screening 2 5-15 [facility] Laboratory - CoagulationOrde red By: Monisha Torrez on 02-17-2023 INR Coag (Bld) [Relative time] 2.7 {INR} [facility] Comment on above: Critical Value > 4.0 Whole blood prothrombin time Ordered By: Monisha Torrez on 02-17-2023 PT Coag (Bld) [Time] 28.7 s 11.7-14.9 [facility] Laboratory - CoagulationOrde red By: Monisha Torrez on 01-13-2023 INR Coag (Bld) [Relative time] 3.0 {INR} [facility] Comment on above: Critical Value > 4.0 Whole blood prothrombin time Ordered By: Monisha Torrez on 01-13-2023 PT Coag (Bld) [Time] 31.8 s 11.7-14.9 [facility] Laboratory - CoagulationOrde red By: Monisha Torrez on 11-27-2022 INR Coag (Bld) [Relative time] 2.5 {INR} [facility] Comment on above: Critical Value > 4.0 Whole blood prothrombin time Ordered By: Monisha Torrez on 11-27-2022 PT Coag (Bld) [Time] 27.2 s 11.7-14.9 [facility] Laboratory - CoagulationOrde red By: Monisha Torrez on 10-20-2022 INR Coag (Bld) [Relative time] 2.5 {INR} [facility] Comment on above: Critical Value > 4.0 Whole blood prothrombin time Ordered By: Monisha Torrez on 10-20-2022 PT Coag (Bld) [Time] 27.2 s 11.7-14.9 [facility] Laboratory - CoagulationOrde red By: Monisha Torrez on 09-19-2022 INR Coag (Bld) [Relative time] 3.0 {INR} [facility] Comment on above: Critical Value > 4.0 Whole blood prothrombin time Ordered By: Monisha Torrez on 09-19-2022 PT Coag (Bld) [Time] 31.7 s 11.7-14.9 [facility] INR in Blood by Coagulation assayOrdered By: Monisha Torrez on 09-05-2022 INR Coag (Bld) [Relative time] 2.7 {INR} [facility] Laboratory - CoagulationOrde red By: Monisha Torrez on 09-05-2022 PT Coag (PPP) [Time] 28.0 s 11.7-14.9 [facility] INR in Blood by Coagulation assayOrdered By: Monisha Torrez on 08-08-2022 INR Coag (Bld) [Relative time] 2.3 {INR} [facility] Laboratory - CoagulationOrde red By: Monisha Torrez on 08-08-2022 PT Coag (PPP) [Time] 25.1 s 11.7-14.9 [facility] INR in Blood by Coagulation assayOrdered By: Monisha Torrez on 07-10-2022 INR Coag (Bld) [Relative time] 2.3 {INR} [facility] Laboratory - CoagulationOrde red By: Monisha Torrez on 07-10-2022 PT Coag (PPP) [Time] 24.8 s 11.7-14.9 [facility] INR in Blood by Coagulation assayOrdered By: Monisha Torrez on 06-13-2022 INR Coag (Bld) [Relative time] 2.0 {INR} [facility] Laboratory - CoagulationOrde red By: Monisha Torrez on 06-13-2022 PT Coag (PPP) [Time] 22.5 s 11.7-14.9 [facility] ECHOon 06-06-2022 [facility] Glucose Glucometer (dC) [M ass/Vol]Ordered By: Dr. Tamayo on 05-24-2022 Glucose [Mass/Vol] 255 mg/dL 74-106 [facility] Comment on above: MANAGEMENT OF PATIEN T CARE PER NURSING PROTOCOL INR in Blood by Coagulation assayOrdered By: Monisha Torrez on 05-11-2022 INR Coag (Bld) [Relative time] 1.7 {INR} [facility] Laboratory - CoagulationOrde red By: Monisha Torrez on 05-11-2022 PT Coag (PPP) [Time] 19.5 s 11.7-14.9 [facility] INR in Blood by Coagulation assayOrdered By: Monisha Torrez on 03-29-2022 INR Coag (Bld) [Relative time] 2.5 {INR} [facility] Laboratory - CoagulationOrde red By: Monisha Torrez on 03-29-2022 PT Coag (PPP) [Time] 26.6 s 11.7-14.9 [facility] INR in Blood by Coagulation assayOrdered By: Monisha Torrez on 02-28-2022 INR Coag (Bld) [Relative time] 2.0 {INR} [facility] Laboratory - CoagulationOrd red By: Monisha Torrez on 02-28-2022 PT Coag (PPP) [Time] 22.7 s 11.7-14.9 [facility] INR in Blood by Coagulation assayon 02-07-2022 INR Coag (Bld) [Relative time] 3.1 {INR} [facility] Work Phone: [phone] Laboratory - Coagulationon 0 02-07-2022 PT Coag (PPP) [Time] 31.7 s 11.7-14.9 [facility] Work Phone: INR in Blood by Coagulation assayon 01-24-2022 INR Coag (Bld) [Relative time] 2.5 {INR} [facility] Work Phone: Laboratory - Coagulationon 0 01-24-2022 PT Coag (PPP) [Time] 26.8 s 11.7-14.9 [facility] Work Phone: INR in Blood by Coagulation assayon 01-10-2022 INR Coag (Bld) [Relative time] 2.4 {INR} [facility] Work Phone: [phone] Laboratory - Coagulationon 0 01-10-2022 PT Coag (PPP) [Time] 25.7 s 11.7-14.9 [facility] Work Phone: CNPNon 11-28-2021 [facility] Telephone (AGCARDPOB ) PEDRO KARIMI ([id number]) 1965 M Date Time Provider Department 11/28/21 AG CARD AGCARDPOB During your visit today, we recorded the following information about you: Deisy Smith 11/28/2021 9:54 AM Signed Patient waiting on Financial Clearance. 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 - glimepiride (AMARYL) 4 mg tablet Take 1 tablet by mouth twice daily with meals. - lisinopril (ZESTRIL) 2.5 mg tablet Take 1 tablet by mouth once daily. - metFORMIN (GLUCOPHAGE) 1,000 mg tablet Take 1 tablet by mouth twice daily with meals. - dulaglutide (TRULICITY) 0.75 mg/0.5 mL pnij Inject 0.75 mg subcutaneously once each week. Inject dose once per week. Discard Pen After - blood sugar diagnostic (FREESTYLE INSULINX TEST STRIPS) test strip UAD to test blood glucose twice daily Dx. Code: E11.65 - ASCORBIC ACID (VITAMIN C ORAL) Take by mouth once daily. - vitamin b complex(B COMPLETE TAB) Take one(1) tablet daily. Problem List As Of Date 11/28/2021 Noted Resolved BENIGN NEOPLASM LG BOWEL [D12.6] 06/12/2008 MARIELLA on CPAP [G47.33, Z99.89] 06/12/2008 Type II diabetes mellitus, uncontrolled (HCC) [*06/12/2008 Sebaceous cyst [L72.3] 07/20/2008 09/19/2010 Ingrowing nail [L60.0] 04/12/2009 09/19/2010 Personal history of colonic polyps [Z86.010] 10/03/2010 09/29/2011 Family history of colon cancer [Z80.0] 10/03/2010 Other acquired deformity of toe [M20.5X9] 05/29/2011 09/29/2011 Hallux valgus (acquired) [M20.10] 05/29/2011 09/29/2011 Abnormality of gait [R26.9] 05/29/2011 09/29/2011 Obesity, Class III, BMI 40-49.9 (morbid obesity*09/29/2011 Tobacco use disorder [F17.200] 05/17/2012 Routine medical exam [Z00.00] Depressive disorder [F32.A] 08/03/2012 Venous insufficiency (chronic) (peripheral) [I8*01/14/2015 Encounter Status:Closed by DEISY SMITH on 11/28/21 Normal [facility] Laboratory - Coagulationon 0 11-25-2021 INR Coag (Bld) [Relative time] 1.1 {INR} [facility] Work Phone: Comment on above: Critical Value > 4.0 Whole blood prothrombin time on 11-25-2021 PT Coag (Bld) [Time] 13.5 s 11.7-14.9 [facility] Work Phone: Absolute lymphocyte counton 11-16-2021 Lymphocytes Auto (Unsp spec) [#/Vol] 1.05 10*3/uL 0.83-4.51 [facility] Work Phone: Basophil percentageon 2021 Basophils/100 WBC (Bld) 1.2 % 0-1 [facility] Work Phone: [phone] Chloride [Moles/Vol] 102 mmol/L 98-107 [facility] Work Phone: [phone] Eosinophils/100 WBC (Bld) 3.0 % 0-5 [facility] Work Phone: Glucose [Mass/Vol] 394 mg/dL 74-106 [facility] Work Phone: [phone] Comment on above: Glucose result great er than or equal to 200 mg/dLsuggests DIABETES MELLITUS per A.D.A. criteria. Neutrophils (Bld) [#/Vol] 3.6 10*3/uL 2.0-7.7 [facility] Work Phone: Neutrophils/100 WBC (Bld) 64.4 % 47-70 [facility] Work Phone: Potassium [Moles/Vol] 4.5 mmol/L 3.5-5.1 [facility] Work Phone: Sodium [Moles/Vol] 135 mmol/L 136-145 [facility] Work Phone: WBC (Bld) [#/Vol] 5.6 10*3/uL 4.4-11.0 [facility] Work Phone: [phone] Blood erythrocytes count (nu mber/volume)on 11-16-2021 RBC (Bld) [#/Vol] 4.96 10*6/uL 4.6-6.2 [facility] Work Phone: [phone] Blood hemoglobin measurement (mass/volume)on 11-16-2021 Hemoglobin (Bld) [Mass/Vol] 14.0 g/dL 13.0-16. 5 [facility] Work Phone: Blood lymphocytes/100 leukoc yteson 11-16-2021 Lymphocytes/100 WBC (Bld) 18.6 % 19-41 [facility] Work Phone: Blood monocytes/100 leukocyt eson 11-16-2021 Monocytes/100 WBC (Bld) 8.5 % 0-10 [facility] Work Phone: Blood platelet mean volumeon 11-16-2021 Platelet mean volume (Bld) [Entitic vol] 11.5 fL 6.2-12.0 [facility] Work Phone: [phone] Determination of erythrocyte mean corpuscular volume (MCV)on 11-16-2021 MCV (RBC) [Entitic vol] 86.9 fL 80-94 [facility] Work Phone: Hematocrit Auto (Bld) [Volum e fraction]on 11-16-2021 Hematocrit (Bld) [Volume fraction] 43.1 % 40-54 [facility] Work Phone: INR in Blood by Coagulation assayon 11-16-2021 INR Coag (Bld) [Relative time] 2.0 {INR} [facility] Work Phone: Laboratory - Chemistry and C hemistry - challengeon 11-16-2021 CO2 [Moles/Vol] 28.0 mmol/L 21.0-32.0 [facility] Work Phone: Urea nitrogen/Creatinine [Mass ratio] 20.5 mg/mg 10-20 [facility] Work Phone: Laboratory - Coagulationon 0 11-16-2021 aPTT Coag (Bld) [Time] 33.3 s 24.1-36.2 [facility] Work Phone: PT Coag (PPP) [Time] 22.7 s 11.7-14.[address] [facility] Work Phone: Laboratory - Hematology and Cell countson 11-16-2021 Erythrocyte distribution width (RBC) [Entitic vol] 50.8 fL 35.1-43.9 [facility] Work Phone: [phone] Erythrocyte distribution width (RBC) [Ratio] 16.1 % 11.6-14.6 [facility] Work Phone: Immature granulocytes/100 WBC (Bld) 4.300 % 0.0-0.9 [facility] Work Phone: Comment on above: IG% - Immature Granu locytes (promyelocytes, myelocytes and metamyelocytes) > 1% indicates that a LEFT SHIFT is Present. MCH (RBC) [Entitic mass] 28.2 pg 27.0-32.0 [facility] Work Phone: Nucleated RBC/100 WBC (Bld) [Ratio] 0 % 0-5 [facility] Work Phone: MCHC Auto (RBC) [Mass/Vol]on 11-16-2021 MCHC (RBC) [Mass/Vol] 32.5 g/dL 32-36 [facility] Work Phone: No Panel Informationon 11-16 Estimated GFR (MDRD) Amer 87 mL/min >60 [facility] Work Phone: Comment on above: GFR Calc Estimated GFR (MDRD) Non-Af Amer 72 mL/min >60 [facility] Work Phone: Comment on above: Non- GFR Calc Platelets bldon 11-16-2021 Platelets (Bld) [#/Vol] 185 10*3/uL 150-450 [facility] Work Phone: Serum or plasma calcium brian urement (mass/volume)on 11-16-2021 Calcium [Mass/Vol] 9.0 mg/dL 8.5-10.1 [facility] Work Phone: Serum or plasma creatinine m easurement (mass/volume)on 11-16-2021 Creatinine [Mass/Vol] 1.12 mg/dL 0.70-1.30 [facility] Work Phone: Comment on above: The validity of the calculated GFR & GFRAA in patients over 70 years has not been determined. Clinical correlation is essential. Serum or plasma urea nitroge n measurement (mass/volume)on 11-16-2021 Urea nitrogen [Mass/Vol] 23 mg/dL 7-18 [facility] Work Phone: Thin prep Papanicolaou smear with manual screeningon 11-16-2021 Thin prep Papanicolaou smear with manual screening 5 5-15 [facility] Work Phone: Laboratory - Coagulationon 0 10-27-2021 INR Coag (Bld) [Relative time] 2.9 {INR} [facility] Work Phone: Comment on above: Critical Value > 4.0 Whole blood prothrombin time on 10-27-2021 PT Coag (Bld) [Time] 33.4 s 11.7-14.9 [facility] Work Phone: INR in Blood by Coagulation assayon 10-25-2021 INR Coag (Bld) [Relative time] 2.9 {INR} [facility] Work Phone: Laboratory - Coagulationon 0 10-25-2021 PT Coag (PPP) [Time] 29.9 s 11.7-14.9 [facility] Work Phone: Basophil percentageon 2021 Chloride [Moles/Vol] 101 mmol/L 98-107 [facility] Work Phone: Glucose [Mass/Vol] 281 mg/dL 74-106 [facility] Work Phone: Comment on above: Glucose result great er than or equal to 200 mg/dLsuggests DIABETES MELLITUS per A.D.A. criteria. Potassium [Moles/Vol] 4.7 mmol/L 3.5-5.1 [facility] Work Phone: Sodium [Moles/Vol] 135 mmol/L 136-145 [facility] Work Phone: Laboratory - Chemistry and C hemistry - challengeon 10-11-2021 CO2 [Moles/Vol] 30.0 mmol/L 21.0-32.0 [facility] Work Phone: Urea nitrogen/Creatinine [Mass ratio] 25.6 mg/mg 10-20 [facility] Work Phone: No Panel Informationon 10-11 Estimated GFR (MDRD) Amer 77 mL/min >60 [facility] Work Phone: Comment on above: GFR Calc Estimated GFR (MDRD) Non-Af Amer 64 mL/min >60 [facility] Work Phone: Comment on above: Non- GFR Calc Serum or plasma calcium brian urement (mass/volume)on 10-11-2021 Calcium [Mass/Vol] 9.1 mg/dL 8.5-10.1 [facility] Work Phone: Serum or plasma creatinine m easurement (mass/volume)on 10-11-2021 Creatinine [Mass/Vol] 1.25 mg/dL 0.70-1.30 [facility] Work Phone: Comment on above: The validity of the calculated GFR & GFRAA in patients over 70 years has not been determined. Clinical correlation is essential. Serum or plasma urea nitroge n measurement (mass/volume)on 10-11-2021 Urea nitrogen [Mass/Vol] 32 mg/dL 11-28 [facility] Work Phone: Thin prep Papanicolaou smear with manual screeningon 10-11-2021 Thin prep Papanicolaou smear with manual screening 4 5-15 [facility] Work Phone: INR in Blood by Coagulation assayon 10-04-2021 INR Coag (Bld) [Relative time] 4.4 {INR} [facility] Work Phone: Comment on above: CRITICAL VALUE VERIF IED. CALLED TO JANETTE MYLES [id number]/ [id number].RESULTS READ BACK BY SAME . Laboratory - Coagulationon 0 - PT Coag (PPP) [Time] 41.5 s 11.7-14.9 [facility] Work Phone: Laboratory - Coagulationon 0 - INR Coag (Bld) [Relative time] 3.1 {INR} [facility] Work Phone: Comment on above: Critical Value > 4.0 Whole blood prothrombin time on 09-30-2021 PT Coag (Bld) [Time] 35.1 s 11.7-14.9 [facility] Work Phone: Basophil percentageon 2021 Chloride [Moles/Vol] 103 mmol/L 98-107 [facility] Work Phone: Glucose [Mass/Vol] 154 mg/dL 74-106 [facility] Work Phone: Comment on above: Fasting Glucose resu lt greater than or equal to 126 mg/dL suggests DIABETES MELLITUS per A.D.A. criteria. Potassium [Moles/Vol] 4.3 mmol/L 3.5-5.1 [facility] Work Phone: Sodium [Moles/Vol] 138 mmol/L 136-145 [facility] Work Phone: Laboratory - Chemistry and C hemistry - challengeon 09-28-2021 CO2 [Moles/Vol] 30.0 mmol/L 21.0-32.0 [facility] Work Phone: Urea nitrogen/Creatinine [Mass ratio] 26.7 mg/mg 10-20 [facility] Work Phone: No Panel Informationon 09-28 Estimated GFR (MDRD) Amer 94 mL/min >60 [facility] Work Phone: Comment on above: GFR Calc Estimated GFR (MDRD) Non-Af Amer 78 mL/min >60 [facility] Work Phone: Comment on above: Non- GFR Calc Serum or plasma calcium brian urement (mass/volume)on 09-28-2021 Calcium [Mass/Vol] 8.7 mg/dL 8.5-10.1 [facility] Work Phone: Serum or plasma creatinine m easurement (mass/volume)on 09-28-2021 Creatinine [Mass/Vol] 1.05 mg/dL 0.70-1.30 [facility] Work Phone: Comment on above: The validity of the calculated GFR & GFRAA in patients over 70 years has not been determined. Clinical correlation is essential. Serum or plasma urea nitroge n measurement (mass/volume)on 09-28-2021 Urea nitrogen [Mass/Vol] 28 mg/dL 11-28 [facility] Work Phone: Thin prep Papanicolaou smear with manual screeningon 09-28-2021 Thin prep Papanicolaou smear with manual screening 5 5-15 [facility] Work Phone: INR in Blood by Coagulation assayon 09-21-2021 INR Coag (Bld) [Relative time] 2.8 {INR} [facility] Work Phone: Laboratory - Coagulationon 0 09-21-2021 PT Coag (PPP) [Time] 28.8 s 11.7-14.9 [facility] Work Phone: Basophil percentageon 2021 Chloride [Moles/Vol] 101 mmol/L 98-107 [facility] Work Phone: Glucose [Mass/Vol] 245 mg/dL 74-106 [facility] Work Phone: Comment on above: Glucose result great er than or equal to 200 mg/dLsuggests DIABETES MELLITUS per A.D.A. criteria. Potassium [Moles/Vol] 4.7 mmol/L 3.5-5.1 [facility] Work Phone: Sodium [Moles/Vol] 137 mmol/L 136-145 [facility] Work Phone: INR in Blood by Coagulation assayon 09-07-2021 INR Coag (Bld) [Relative time] 2.4 {INR} [facility] Work Phone: Laboratory - Chemistry and C hemistry - challengeon 09-07-2021 CO2 [Moles/Vol] 29.0 mmol/L 21.0-32.0 [facility] Work Phone: Urea nitrogen/Creatinine [Mass ratio] 26.7 mg/mg 10-20 [facility] Work Phone: Laboratory - Coagulationon 0 09-07-2021 PT Coag (PPP) [Time] 25.7 s 11.7-14.9 [facility] Work Phone: No Panel Informationon 09-07 Estimated GFR (MDRD) Amer 94 mL/min >60 [facility] Work Phone: Comment on above: GFR Calc Estimated GFR (MDRD) Non-Af Amer 78 mL/min >60 [facility] Work Phone: Comment on above: Non- GFR Calc Serum or plasma calcium brian urement (mass/volume)on 09-07-2021 Calcium [Mass/Vol] 8.5 mg/dL 8.5-10.1 [facility] Work Phone: Serum or plasma creatinine m easurement (mass/volume)on 09-07-2021 Creatinine [Mass/Vol] 1.05 mg/dL 0.70-1.30 [facility] Work Phone: Comment on above: The validity of the calculated GFR & GFRAA in patients over 70 years has not been determined. Clinical correlation is essential. Serum or plasma urea nitroge n measurement (mass/volume)on 09-07-2021 Urea nitrogen [Mass/Vol] 28 mg/dL 7-18 [facility] Work Phone: Thin prep Papanicolaou smear with manual screeningon 09-07-2021 Thin prep Papanicolaou smear with manual screening 7 5-15 [facility] Work Phone: Basophil percentageon 2021 Chloride [Moles/Vol] 103 mmol/L 98-107 [facility] Work Phone: Glucose [Mass/Vol] 179 mg/dL 74-106 [facility] Work Phone: Comment on above: Fasting Glucose resu lt greater than or equal to 126 mg/dL suggests DIABETES MELLITUS per A.D.A. criteria. Potassium [Moles/Vol] 4.6 mmol/L 3.5-5.1 [facility] Work Phone: Sodium [Moles/Vol] 137 mmol/L 136-145 [facility] Work Phone: INR in Blood by Coagulation assayon 08-22-2021 INR Coag (Bld) [Relative time] 1.6 {INR} [facility] Work Phone: Laboratory - Chemistry and C hemistry - challengeon 08-22-2021 CO2 [Moles/Vol] 31.0 mmol/L 21.0-32.0 [facility] Work Phone: Urea nitrogen/Creatinine [Mass ratio] 21.8 mg/mg 10-20 [facility] Work Phone: Laboratory - Coagulationon 0 08-22-2021 PT Coag (PPP) [Time] 17.9 s 11.7-14.9 [facility] Work Phone: No Panel Informationon 08-22 Estimated GFR (MDRD) Amer 81 mL/min >60 [facility] Work Phone: Comment on above: GFR Calc Estimated GFR (MDRD) Non-Af Amer 67 mL/min >60 [facility] Work Phone: Comment on above: Non- GFR Calc Serum or plasma calcium brian urement (mass/volume)on 08-22-2021 Calcium [Mass/Vol] 8.5 mg/dL 8.5-10.1 [facility] Work Phone: Serum or plasma creatinine m easurement (mass/volume)on 08-22-2021 Creatinine [Mass/Vol] 1.19 mg/dL 0.70-1.30 [facility] Work Phone: Comment on above: The validity of the calculated GFR & GFRAA in patients over 70 years has not been determined. Clinical correlation is essential. Serum or plasma urea nitroge n measurement (mass/volume)on 08-22-2021 Urea nitrogen [Mass/Vol] 26 mg/dL 7-18 [facility] Work Phone: Thin prep Papanicolaou smear with manual screeningon 08-22-2021 Thin prep Papanicolaou smear with manual screening 3 5-15 [facility] Work Phone: Absolute lymphocyte counton 08-16-2021 Lymphocytes Auto (Unsp spec) [#/Vol] 1.81 10*3/uL 0.83-4.51 [facility] Work Phone: Basophil percentageon 2021 Basophils/100 WBC (Bld) 0.9 % 0-1 [facility] Work Phone: Bilirubin [Mass/Vol] 0.50 mg/dL 0.20-1.00 [facility] Work Phone: Comment on above: For patients on eltr ombopag therapy, use of Dimension [place] TBIL is not recommended. Chloride [Moles/Vol] 104 mmol/L 98-107 [facility] Work Phone: Eosinophils/100 WBC (Bld) 1.1 % 0-5 [facility] Work Phone: Glucose [Mass/Vol] 114 mg/dL 74-106 [facility] Work Phone: Comment on above: Fasting Glucose resu lt from 100 to 125 mg/dL suggests IMPAIRED HOMEOSTASIS per A.D.A. criteria. Neutrophils (Bld) [#/Vol] 3.8 10*3/uL 2.0-7.7 [facility] Work Phone: Neutrophils/100 WBC (Bld) 57.5 % 47-70 [facility] Work Phone: Potassium [Moles/Vol] 4.1 mmol/L 3.5-5.1 [facility] Work Phone: Protein [Mass/Vol] 6.3 g/dL 6.4-8.2 [facility] Work Phone: Sodium [Moles/Vol] 136 mmol/L 136-145 [facility] Work Phone: WBC (Bld) [#/Vol] 6.7 10*3/uL 4.4-11.0 [facility] Work Phone: Blood erythrocytes count (nu mber/volume)on 08-16-2021 RBC (Bld) [#/Vol] 4.94 10*6/uL 4.6-6.2 [facility] Work Phone: Blood hemoglobin measurement (mass/volume)on 08-16-2021 Hemoglobin (Bld) [Mass/Vol] 13.3 g/dL 13.0-16. 5 [facility] Work Phone: Blood lymphocytes/100 leukoc yteson 08-16-2021 Lymphocytes/100 WBC (Bld) 27.2 % 19-41 [facility] Work Phone: Blood monocytes/100 leukocyt eson 08-16-2021 Monocytes/100 WBC (Bld) 12.2 % 0-10 [facility] Work Phone: Blood platelet mean volumeon 08-16-2021 Platelet mean volume (Bld) [Entitic vol] 11.3 fL 6.2-12.0 [facility] Work Phone: [phone] Determination of erythrocyte mean corpuscular volume (MCV)on 08-16-2021 MCV (RBC) [Entitic vol] 86.0 fL 80-94 [facility] Work Phone: [phone] Glucose Glucometer (BldC) [M ass/Vol]on 08-16-2021 Glucose [Mass/Vol] 185 mg/dL 74-106 [facility] Work Phone: Comment on above: MANAGEMENT OF PATIEN T CARE PER NURSING PROTOCOL Hematocrit Auto (Bld) [Volum e fraction]on 08-16-2021 Hematocrit (Bld) [Volume fraction] 42.5 % 40-54 [facility] Work Phone: INR in Blood by Coagulation assayon 08-16-2021 INR Coag (Bld) [Relative time] 1.4 {INR} [facility] Work Phone: [phone] Laboratory - Chemistry and C hemistry - challengeon 08-16-2021 ALP [Catalytic activity/Vol] 57 U/L 45-117 [facility] Work Phone: ALT [Catalytic activity/Vol] 22 U/L 16-61 [facility] Work Phone: [phone] CO2 [Moles/Vol] 28.0 mmol/L 21.0-32.0 [facility] Work Phone: [phone] Globulin (S) [Mass/Vol] 3.3 g/dL 2.2-4.2 [facility] Work Phone: [phone] Urea nitrogen/Creatinine [Mass ratio] 28.4 mg/mg 10-20 [facility] Work Phone: Laboratory - Coagulationon 0 08-16-2021 PT Coag (PPP) [Time] 16.4 s 11.7-14.9 [facility] Work Phone: Laboratory - Hematology and Cell countson 08-16-2021 Erythrocyte distribution width (RBC) [Entitic vol] 45.5 fL 35.1-43.9 [facility] Work Phone: Erythrocyte distribution width (RBC) [Ratio] 14.5 % 11.6-14.6 [facility] Work Phone: Immature granulocytes/100 WBC (Bld) 1.100 % 0.0-0.9 [facility] Work Phone: Comment on above: IG% - Immature Granu locytes (promyelocytes, myelocytes and metamyelocytes) > 1% indicates that a LEFT SHIFT is Present. MCH (RBC) [Entitic mass] 26.9 pg 27.0-32.0 [facility] Work Phone: Nucleated RBC/100 WBC (Bld) [Ratio] 0 % 0-5 [facility] Work Phone: MCHC Auto (RBC) [Mass/Vol]on 08-16-2021 MCHC (RBC) [Mass/Vol] 31.3 g/dL 32-36 [facility] Work Phone: No Panel Informationon 08-16 Estimated Creatinine Clearance Calc 95.14 ml/min [facility] Work Phone: Estimated GFR (MDRD) Amer 97 mL/min >60 [facility] Work Phone: Comment on above: GFR Calc Estimated GFR (MDRD) Non-Af Amer 80 mL/min >60 [facility] Work Phone: Comment on above: Non- GFR Calc Platelets bldon 08-16-2021 Platelets (Bld) [#/Vol] 171 10*3/uL 150-450 [facility] Work Phone: Serum or plasma albumin brian urement (mass/volume)on 08-16-2021 Albumin [Mass/Vol] 3.0 g/dL 3.2-5.0 [facility] Work Phone: Serum or plasma albumin/glob ulin mass ratioon 08-16-2021 Albumin/Globulin [Mass ratio] 0.9 {ratio} 0.9-2.4 [facility] Work Phone: Serum or plasma calcium brian urement (mass/volume)on 08-16-2021 Calcium [Mass/Vol] 9.0 mg/dL 8.5-10.1 [facility] Work Phone: Serum or plasma creatinine m easurement (mass/volume)on 08-16-2021 Creatinine [Mass/Vol] 1.02 mg/dL 0.70-1.30 [facility] Work Phone: Comment on above: The validity of the calculated GFR & GFRAA in patients over 70 years has not been determined. Clinical correlation is essential. Serum or plasma urea nitroge n measurement (mass/volume)on 08-16-2021 Urea nitrogen [Mass/Vol] 29 mg/dL 7-18 [facility] Work Phone: Thin prep Papanicolaou smear with manual screeningon 08-16-2021 Thin prep Papanicolaou smear with manual screening 15 U/L 15-37 [facility] Work Phone: Thin prep Papanicolaou smear with manual screening 4 5-15 [facility] Work Phone: Basophil percentageon 2021 Cholesterol [Mass/Vol] 129 mg/dL <200 [facility] Work Phone: Comment on above: <200 mg/dL Desirable 200-240 mg/dL Borderline >240 mg/dL High Risk Triglyceride [Mass/Vol] 85 mg/dL <199 [facility] Work Phone: Comment on above: The drugs N-Acetylcy steine and Metamizole may falsely depress this assay.Serum Triglycerides Reference Interval Normal <150 mg/dL Borderline high 150 - 199 mg/dL High 200 - 499 mg/dL Very High > or = 500 mg/dL No Panel Informationon 08-15 Thyroid Stimulating Hormone (TSH) 3.54 uIU/mL 0.358-3.74 [facility] Work Phone: Troponin I High Sensitivity 31 pg/mL 3.0-78.0 [facility] Work Phone: Comment on above: Please Note: New Annie t Units and Gender Specific Reference Ranges. For more information see Policy Stat Procedure [place] High Sensitivity Troponin (TNIH) and attachments. Serum or plasma cholesterol in HDL measurement (mass/volume)on 08-15-2021 Cholesterol in HDL [Mass/Vol] 42 mg/dL >40 [facility] Work Phone: Comment on above: The drugs N-Acetylcy steine and Metamizole may falsely depress this assay. Reference Range HDL <40 mg/dL Low HDL Cholesterol HDL >or= 60 mg/dL High HDL Cholesterol Serum or plasma cholesterol in VLDL measurement (mass/volume)on 08-15-2021 Cholesterol in VLDL [Mass/Vol] 17 mg/dL 5-40 [facility] Work Phone: Serum or plasma low density lipoprotein (LDL) cholesterol measurement (mass/volume)on 08-15-2021 Cholesterol in LDL [Mass/Vol] 70 mg/dL 0-130 [facility] Work Phone: Absolute lymphocyte counton 08-14-2021 Lymphocytes Auto (Unsp spec) [#/Vol] 1.86 10*3/uL 0.83-4.51 [facility] Work Phone: Basophil percentageon 2021 Basophils/100 WBC (Bld) 0.9 % 0-1 [facility] Work Phone: Chloride [Moles/Vol] 105 mmol/L 98-107 [facility] Work Phone: Eosinophils/100 WBC (Bld) 1.3 % 0-5 [facility] Work Phone: Glucose [Mass/Vol] 214 mg/dL 74-106 [facility] [facility] Work Phone: [phone] Comment on above: Glucose result great er than or equal to 200 mg/dLsuggests DIABETES MELLITUS per A.D.A. criteria. Neutrophils (Bld) [#/Vol] 4.0 10*3/uL 2.0-7.7 [facility] Work Phone: Neutrophils/100 WBC (Bld) 59.5 % 47-70 [facility] Work Phone: Potassium [Moles/Vol] 4.6 mmol/L 3.5-5.1 [facility] Work Phone: Sodium [Moles/Vol] 134 mmol/L 136-145 [facility] Work Phone: WBC (Bld) [#/Vol] 6.8 10*3/uL 4.4-11.0 [facility] Work Phone: [phone] Blood erythrocytes count (nu mber/volume)on 08-14-2021 RBC (Bld) [#/Vol] 5.30 10*6/uL 4.6-6.2 [facility]: [phone] Blood hemoglobin measurement (mass/volume)on 08-14-2021 Hemoglobin (Bld) [Mass/Vol] 14.3 g/dL 13.0-16. 5 [facility] Work Phone: Blood lymphocytes/100 leukoc yteson 08-14-2021 Lymphocytes/100 WBC (Bld) 27.5 % 19-41 [facility] Work Phone: Blood monocytes/100 leukocyt eson 08-14-2021 Monocytes/100 WBC (Bld) 8.7 % 0-10 [facility] Work Phone: Blood platelet mean volumeon 08-14-2021 Platelet mean volume (Bld) [Entitic vol] 11.5 fL 6.2-12.0 [facility] Work Phone: [phone] Determination of erythrocyte mean corpuscular volume (MCV)on 08-14-2021 MCV (RBC) [Entitic vol] 85.8 fL 80-94 [facility] Work Phone: Hematocrit Auto (Bld) [Volum e fraction]on 08-14-2021 Hematocrit (Bld) [Volume fraction] 45.5 % 40-54 [facility] Work Phone: Laboratory - Chemistry and C hemistry - challengeon 08-14-2021 CO2 [Moles/Vol] 24.0 mmol/L 21.0-32.0 [facility] Work Phone: [phone] Magnesium [Mass/Vol] 2.0 mg/dL 1.6-2.6 [facility] Work Phone: [phone] Natriuretic peptide B (Bld) [Mass/Vol] 653.4 pg/mL 0-100 [facility] Work Phone: [phone] Urea nitrogen/Creatinine [Mass ratio] 29.5 mg/mg 10-20 [facility] Work Phone: [phone] Laboratory - Hematology and Cell countson 08-14-2021 Erythrocyte distribution width (RBC) [Entitic vol] 44.8 fL 35.1-43.9 [facility] Work Phone: [phone] Erythrocyte distribution width (RBC) [Ratio] 14.3 % 11.6-14.6 [facility] Work Phone: [phone] Immature granulocytes/100 WBC (Bld) 2.100 % 0.0-0.9 [facility] Work Phone: [phone] Comment on above: IG% - Immature Granu locytes (promyelocytes, myelocytes and metamyelocytes) > 1% indicates that a LEFT SHIFT is Present. MCH (RBC) [Entitic mass] 27.0 pg 27.0-32.0 [facility] Work Phone: [phone] Nucleated RBC/100 WBC (Bld) [Ratio] 0 % 0-5 [facility] Work Phone: [phone] MCHC Auto (RBC) [Mass/Vol]on 08-14-2021 MCHC (RBC) [Mass/Vol] 31.4 g/dL 32-36 [facility] Work Phone: No Panel Informationon 08-14 D-Dimer Quantitative (PE/DVT) 0.45 FEU/ug/m 0.27-0.49 [facility] Work Phone: Comment on above: NORMAL D-Dimer level (<0.50) indicates no DVT or PE. Estimated Creatinine Clearance Calc 92.42 ml/min [facility] Work Phone: Estimated GFR (MDRD) Amer 94 mL/min >60 [facility] Work Phone: Comment on above: GFR Calc Estimated GFR (MDRD) Non-Af Amer 78 mL/min >60 [facility] Work Phone: Comment on above: Non- GFR Calc Troponin I High Sensitivity 37 pg/mL 3.0-78.0 [facility] Work Phone: Comment on above: Please Note: New Annie t Units and Gender Specific Reference Ranges. For more information see Policy Stat Procedure [place] High Sensitivity Troponin (TNIH) and attachments. Platelets bldon 08-14-2021 Platelets (Bld) [#/Vol] 243 10*3/uL 150-450 [facility] Work Phone: Serum or plasma calcium brian urement (mass/volume)on 08-14-2021 Calcium [Mass/Vol] 8.7 mg/dL 8.5-10.1 [facility] Work Phone: Serum or plasma creatinine m easurement (mass/volume)on 08-14-2021 Creatinine [Mass/Vol] 1.05 mg/dL 0.70-1.30 [facility] Work Phone: Comment on above: The validity of the calculated GFR & GFRAA in patients over 70 years has not been determined. Clinical correlation is essential. Serum or plasma urea nitroge n measurement (mass/volume)on 08-14-2021 Urea nitrogen [Mass/Vol] 31 mg/dL 7-18 [facility] Work Phone: Thin prep Papanicolaou smear with manual screeningon 08-14-2021 Thin prep Papanicolaou smear with manual screening 5 5-15 [facility] Work Phone: No Panel Information [facility] Vital Signs Date Time Vital Sign Value Performing Clinician Alma funes 11-20-2024 08:33-0400 Body height 187.[address] Margot Mai MD Work Phone: [facility] 11-20-2024 08:33-0400 Body mass index (BMI) [Ratio] 39.6 kg/m2 Dr. Margot Mai MD Work Phone: [facility] 11-20-2024 08:33-0400 Body weight 140.[address] Margot Mai MD Work Phone: [facility] 11-20-2024 08:33-0400 Diastolic blood pressure 70 mm[Hg] Dr. Margot Mai MD Work Phone: [facility] 11-20-2024 08:33-0400 Heart rate 70 /min Dr. Margot Mai MD Work Phone: [facility] 11-20-2024 08:33-0400 Respiratory rate 16 /min Dr. Margot Mai MD Work Phone: [facility] 11-20-2024 08:33-0400 Systolic blood pressure 115 mm[Hg] Dr. Margot Mai MD Work Phone: [facility] 11-11-2024 15:39-0400 Body height 187.[address] Margot Mai MD Work Phone: [facility] 11-11-2024 15:39-0400 Body mass index (BMI) [Ratio] 39.2 kg/m2 Dr. Margot Mai MD Work Phone: [facility] 11-11-2024 15:39-0400 Body temperature 97.8 [degF] Dr. Margot Mai MD Work Phone: [facility] 11-11-2024 15:39-0400 Body weight 138.[address] Margot Mai MD Work Phone: [facility] 11-11-2024 15:39-0400 Diastolic blood pressure 73 mm[Hg] Dr. Margot Mai MD Work Phone: [facility] 11-11-2024 15:39-0400 Heart rate 74 /min Dr. Margot Mai MD Work Phone: [facility] 11-11-2024 15:39-0400 Respiratory rate 18 /min Dr. Margot Mai MD Work Phone: [facility] 11-11-2024 15:39-0400 SaO2% (BldA) [Mass fraction] 95 % Dr. Margot Mai MD Work Phone: [facility] 11-11-2024 15:39-0400 Systolic blood pressure 108 mm[Hg] Dr. Margot Mai MD Work Phone: [facility] 10-13-2024 08:01-0400 Body mass index (BMI) [Ratio] 38.39 kg/m2 Lamar Nogueira MD Work Phone: [facility] 10-13-2024 08:01-0400 Body weight 135.63 kg Lamar Nogueira MD Work Phone: [facility] 10-13-2024 08:01-0400 Diastolic blood pressure 78 mm[Hg] Lamar Nogueira MD Work Phone: [facility] 10-13-2024 08:01-0400 Heart rate 66 /min Lamar Nogueira MD Work Phone: [facility] 10-13-2024 08:01-0400 SaO2% (BldA) [Mass fraction] 98 % Lamar Nogueira MD Work Phone: [facility] 10-13-2024 08:01-0400 Systolic blood pressure 125 mm[Hg] Lamar Nogueira MD Work Phone: [facility] 08-14-2024 09:08-0400 Body height 187.[address] Margot Mai MD Work Phone: [facility] 08-14-2024 09:08-0400 Body mass index (BMI) [Ratio] 40 kg/m2 Dr. Margot Mai MD Work Phone: [facility] 08-14-2024 09:08-0400 Body weight 141.[address] Margot Mai MD Work Phone: [facility] 08-14-2024 09:08-0400 Diastolic blood pressure 75 mm[Hg] Dr. Margot Mai MD Work Phone: [facility] 08-14-2024 09:08-0400 Heart rate 68 /min Dr. Margot Mai MD Work Phone: [facility] 08-14-2024 09:08-0400 Respiratory rate 18 /min Dr. Margot Mai MD Work Phone: [facility] 08-14-2024 09:08-0400 SaO2% (BldA) [Mass fraction] 97 % Dr. Margot Mai MD Work Phone: [facility] 08-14-2024 09:08-0400 Systolic blood pressure 115 mm[Hg] Dr. Margot Mai MD Work Phone: [facility] 08-12-2024 15:04-0400 Body mass index (BMI) [Ratio] 39.6 kg/m2 Dr. Margot Mai MD Work Phone: [facility] 08-12-2024 15:04-0400 Body weight 140.[address] Margot Mai MD Work Phone: [facility] 08-12-2024 15:04-0400 Diastolic blood pressure 64 mm[Hg] Dr. Margot Mai MD Work Phone: [facility] 08-12-2024 15:04-0400 Heart rate 71 /min Dr. Margot Mai MD Work Phone: [facility] 08-12-2024 15:04-0400 Respiratory rate 18 /min Dr. Margot Mai MD Work Phone: [facility] 08-12-2024 15:04-0400 Systolic blood pressure 99 mm[Hg] Dr. Margot Mai MD Work Phone: [facility] 08-12-2024 11:55-0400 Diastolic blood pressure 71 mm[Hg] Dr. Margot Mai MD Work Phone: [facility] 08-12-2024 11:55-0400 Heart rate 66 /min Dr. Margot Mai MD Work Phone: [facility] 08-12-2024 11:55-0400 Systolic blood pressure 122 mm[Hg] Dr. Margot Mai MD Work Phone: [facility] 08-12-2024 11:45-0400 Body temperature 97.6 [degF] Dr. Margot Mai MD Work Phone: [facility] 08-12-2024 11:45-0400 Respiratory rate 18 /min Dr. Margot Mai MD Work Phone: [facility] 08-12-2024 11:45-0400 SaO2% (BldA) [Mass fraction] 100 % Dr. Margot Mai MD Work Phone: [facility] 08-12-2024 05:15-0400 Body mass index (BMI) [Ratio] 38.6 kg/m2 Dr. Margot Mai MD Work Phone: [facility] 08-12-2024 05:15-0400 Body weight 136.[address] Margot Mai MD Work Phone: [facility] 08-11-2024 14:51-0400 Body height 187.[address] Margot Mai MD Work Phone: [facility] 08-06-2024 00:21-0400 Body temperature 98.6 [degF] Dr. Margot Mai MD Work Phone: [facility] 08-06-2024 00:21-0400 Diastolic blood pressure 74 mm[Hg] Dr. Margot Mai MD Work Phone: [facility] 08-06-2024 00:21-0400 Heart rate 72 /min Dr. Margot Mai MD Work Phone: [facility] 08-06-2024 00:21-0400 Respiratory rate 14 /min Dr. Margot Mai MD Work Phone: [facility] 08-06-2024 00:21-0400 SaO2% (BldA) [Mass fraction] 96 % Dr. Margot Mai MD Work Phone: [facility] 08-06-2024 00:21-0400 Systolic blood pressure 117 mm[Hg] Dr. Margot Mai MD Work Phone: [facility] 08-05-2024 20:31-0400 Body height 187.[address] Margot Mai MD Work Phone: [facility] 08-05-2024 20:31-0400 Body mass index (BMI) [Ratio] 37 kg/m2 Dr. Margot Mai MD Work Phone: [facility] 08-05-2024 20:31-0400 Body weight 131.[address] Margot Mai MD Work Phone: [facility] 07-28-2024 14:59-0400 Body mass index (BMI) [Ratio] 40.6 kg/m2 Dr. Margot Mai MD Work Phone: [facility] 07-28-2024 14:59-0400 Body weight 143.[address] Margot Mai MD Work Phone: [facility] 07-28-2024 14:59-0400 Diastolic blood pressure 68 mm[Hg] Dr. Margot Mai MD Work Phone: [facility] 07-28-2024 14:59-0400 Respiratory rate 16 /min Dr. Margot Mai MD Work Phone: [facility] 07-28-2024 14:59-0400 Systolic blood pressure 108 mm[Hg] Dr. Margot Mai MD Work Phone: [phone] [place] [address] 04-21-2024 16:03-0500 Diastolic blood pressure 87 mm[Hg] Dr. Margot Mai MD Work Phone: [phone] [place] [address] 04-21-2024 16:03-0500 Heart rate 126 /min Dr. Margot Mai MD Work Phone: [facility] 04-21-2024 16:03-0500 Respiratory rate 16 /min Dr. Margot Mai MD Work Phone: [facility] 04-21-2024 16:03-0500 Systolic blood pressure 126 mm[Hg] Dr. Margot Mai MD Work Phone: [facility] 04-17-2024 08:59-0500 Body height 187.[address] Margot Mai MD Work Phone: [facility] 04-17-2024 08:59-0500 Body mass index (BMI) [Ratio] 40.1 kg/m2 Dr. Margot Mai MD Work Phone: [facility] 04-17-2024 08:59-0500 Body weight 141.[address] Margot Mia MD Work Phone: [facility] 04-17-2024 08:59-0500 Diastolic blood pressure 85 mm[Hg] Dr. Margot Mai MD Work Phone: [facility] 04-17-2024 08:59-0500 Heart rate 132 /min Dr. Margot Mai MD Work Phone: [facility] 04-17-2024 08:59-0500 Respiratory rate 18 /min Dr. Margot Mai MD Work Phone: [facility] 04-17-2024 08:59-0500 Systolic blood pressure 127 mm[Hg] Dr. Margot Mai MD Work Phone: [facility] 03-24-2024 08:13-0500 Body height 188 cm Keny Alexander APRN.[employer] Work Phone: [facility] 03-24-2024 08:13-0500 Body mass index (BMI) [Ratio] 38.77 kg/m2 Keny Alexander APRN.[employer] Work Phone: [facility] 03-24-2024 08:13-0500 Body weight 136.99 kg Keny Alexander APRN.[employer] Work Phone: [facility] 03-24-2024 08:13-0500 Diastolic blood pressure 73 mm[Hg] Keny Alexander APRN.[employer] Work Phone: [facility] 03-24-2024 08:13-0500 Heart rate 132 /min Keny Alexander APRN.[employer] Work Phone: [facility] 03-24-2024 08:13-0500 SaO2% (BldA) [Mass fraction] 97 % Keny Alexander APRN.[employer] Work Phone: [facility] 03-24-2024 08:13-0500 Systolic blood pressure 116 mm[Hg] Keny Alexander APRN.[employer] Work Phone: [facility] 09-17-2023 08:12-0400 Body height 188 cm Lamar Nogueira MD Work Phone: [facility] 09-17-2023 08:12-0400 Body mass index (BMI) [Ratio] 41.98 kg/m2 Lamar Nogueira MD Work Phone: [facility] 09-17-2023 08:12-0400 Body weight 148.33 kg Lamar Nogueira MD Work Phone: [facility] 09-17-2023 08:12-0400 Diastolic blood pressure 79 mm[Hg] Lamar Nogueira MD Work Phone: [facility] 09-17-2023 08:12-0400 Heart rate 76 /min Lamar Nogueira MD Work Phone: [facility] 09-17-2023 08:12-0400 Respiratory rate 16 /min Lamar Nogueira MD Work Phone: [facility] 09-17-2023 08:12-0400 SaO2% (BldA) [Mass fraction] 95 % Lamar Nogueira MD Work Phone: [facility] 09-17-2023 08:12-0400 Systolic blood pressure 143 mm[Hg] Lamar Nogueira MD Work Phone: [facility] 05-17-2023 08:39-0500 Body height 187.[address] Margot Mai Work Phone: [facility] 05-17-2023 08:39-0500 Body mass index (BMI) [Ratio] 44 kg/m2 Dr. Margot Mai Work Phone: [facility] 05-17-2023 08:39-0500 Body weight 155.[address] Margot Mai Work Phone: [facility] 05-17-2023 08:39-0500 Diastolic blood pressure 70 mm[Hg] Dr. Margot Mai Work Phone: [facility] 05-17-2023 08:39-0500 Heart rate 77 /min Dr. Margot Mai Work Phone: [facility] 05-17-2023 08:39-0500 Respiratory rate 18 /min Dr. Margot Mai Work Phone: [facility] 05-17-2023 08:39-0500 SaO2% (BldA) [Mass fraction] 97 % Dr. Margot Mai Work Phone: [facility] 05-17-2023 08:39-0500 Systolic blood pressure 118 mm[Hg] Dr. Margot Mai Work Phone: [facility] 12-28-2022 08:45-0400 Body height 188 cm Lucas Lutz Work Phone: [facility] 12-28-2022 08:45-0400 Body weight 158.76 kg Lucas Lutz Work Phone: [facility] 12-19-2022 09:21-0400 Body height 188 cm Keny Alexander APRN.[employer] Work Phone: [facility] 12-19-2022 09:21-0400 Body weight 161.93 kg Keny Alexander APRN.[employer] Work Phone: [facility] 12-19-2022 09:21-0400 Diastolic blood pressure 73 mm[Hg] Keny Alexander APRN.[employer] Work Phone: [facility] 12-19-2022 09:21-0400 Heart rate 68 /min Keny Alexander APRN.[employer] Work Phone: [facility] 12-19-2022 09:21-0400 SaO2% (BldA) [Mass fraction] 98 % Keny Alexander APRN.[employer] Work Phone: [facility] 12-19-2022 09:21-0400 Systolic blood pressure 104 mm[Hg] Keny Alexander APRN.[employer] Work Phone: [facility] 11-28-2022 08:54-0400 Body height 187.[address] Margot Mai Work Phone: [facility] 11-28-2022 08:54-0400 Body mass index (BMI) [Ratio] 46.2 kg/m2 Dr. Margot Mai Work Phone: [facility] 11-28-2022 08:54-0400 Body weight 163.[address] Margot Mai Work Phone: [facility] 11-28-2022 08:54-0400 Diastolic blood pressure 72 mm[Hg] Dr. Margot Mai Work Phone: [facility] 11-28-2022 08:54-0400 Heart rate 68 /min Dr. Margot Mai Work Phone: [facility] 11-28-2022 08:54-0400 Respiratory rate 18 /min Dr. Margot Mai Work Phone: [facility] 11-28-2022 08:54-0400 SaO2% (BldA) [Mass fraction] 97 % Dr. Margot Mai Work Phone: [facility] 11-28-2022 08:54-0400 Systolic blood pressure 115 mm[Hg] Dr. Margot Mai Work Phone: [facility] 08-01-2022 13:06-0400 Body height 187.[address] Margot Mai Work Phone: [facility] 08-01-2022 13:06-0400 Body mass index (BMI) [Ratio] 44.1 kg/m2 Dr. Margot Mai Work Phone: [facility] 08-01-2022 13:06-0400 Body weight 156.[address] Margot Mai Work Phone: [facility] 08-01-2022 13:06-0400 Diastolic blood pressure 82 mm[Hg] Dr. Margot Mai Work Phone: [facility] 08-01-2022 13:06-0400 Heart rate 103 /min Dr. Margot Mai Work Phone: [facility] 08-01-2022 13:06-0400 Respiratory rate 22 /min Dr. Margot Mai Work Phone: [facility] 08-01-2022 13:06-0400 SaO2% (BldA) [Mass fraction] 96 % Dr. Margot Mai Work Phone: [facility] 08-01-2022 13:06-0400 Systolic blood pressure 121 mm[Hg] Dr. Margot Mai Work Phone: [facility] 06-06-2022 13:23-0500 Body height 188 cm Keny Alexander APRN.[employer] Work Phone: [facility] 06-06-2022 13:23-0500 Body weight 154.22 kg Keny Alexander APRN.[employer] Work Phone: [facility] 06-06-2022 13:23-0500 Diastolic blood pressure 82 mm[Hg] Keny Alexander APRN.[employer] Work Phone: [facility] 06-06-2022 13:23-0500 Heart rate 131 /min Keny Alexander APRN.[employer] Work Phone: [facility] 06-06-2022 13:23-0500 SaO2% (BldA) [Mass fraction] 98 % Keny Alexander APRN.[employer] Work Phone: [facility] 06-06-2022 13:23-0500 Systolic blood pressure 118 mm[Hg] Keny Alexander APRN.[employer] Work Phone: [facility] 06-02-2022 10:47-0500 Body height 187.[address] Margot Mai Work Phone: [facility] 06-02-2022 10:47-0500 Body mass index (BMI) [Ratio] 43.5 kg/m2 Dr. Margot Mai Work Phone: [facility] 06-02-2022 10:47-0500 Body weight 153.[address] Margot Mai Work Phone: [facility] 06-02-2022 10:47-0500 Diastolic blood pressure 88 mm[Hg] Dr. Margot Mai Work Phone: [facility] 06-02-2022 10:47-0500 Heart rate 130 /min Dr. Margot Mai Work Phone: [facility] 06-02-2022 10:47-0500 Respiratory rate 18 /min Dr. Margot Mai Work Phone: [facility] 06-02-2022 10:47-0500 Systolic blood pressure 136 mm[Hg] Dr. Margot Mai Work Phone: [facility] 05-24-2022 11:41-0500 Body temperature 96.9 [degF] Dr. Margot Mai Work Phone: [facility] 05-24-2022 11:41-0500 Diastolic blood pressure 75 mm[Hg] Dr. Margot Mai Work Phone: [facility] 05-24-2022 11:41-0500 Heart rate 117 /min Dr. Margot Mai Work Phone: [facility] 05-24-2022 11:41-0500 Respiratory rate 16 /min Dr. Margot Mai Work Phone: [facility] 05-24-2022 11:41-0500 SaO2% (BldA) [Mass fraction] 99 % Dr. Margot Mai Work Phone: [facility] 05-24-2022 11:41-0500 Systolic blood pressure 114 mm[Hg] Dr. Margot Mai Work Phone: [facility] 05-24-2022 08:47-0500 Body height 187.[address] Margot Mai Work Phone: [facility] Work Phone: 05-24-2022 08:47-0500 Body mass index (BMI) [Ratio] 43 kg/m2 Dr. Margot Mai Work Phone: [facility] 05-24-2022 08:47-0500 Body weight 151.[address] Margot Mai Work Phone: [facility] 05-11-2022 09:31-0500 Body height 187.[address] Margot Mai Work Phone: [facility] Work Phone: 05-11-2022 09:31-0500 Body mass index (BMI) [Ratio] 43.9 kg/m2 Dr. Margot Mai Work Phone: [facility] 05-11-2022 09:31-0500 Body temperature 97.2 [degF] Dr. Margot Mai Work Phone: [facility] 05-11-2022 09:31-0500 Body weight 155.[address] Margot Mai Work Phone: [facility] 05-11-2022 09:31-0500 Diastolic blood pressure 84 mm[Hg] Dr. Margot Mai Work Phone: [facility] 05-11-2022 09:31-0500 Heart rate 133 /min Dr. Margot Mai Work Phone: [facility] 05-11-2022 09:31-0500 Respiratory rate 18 /min Dr. Margot Mai Work Phone: [facility] 05-11-2022 09:31-0500 SaO2% (BldA) [Mass fraction] 96 % Dr. Margot Mai Work Phone: [facility] 05-11-2022 09:31-0500 Systolic blood pressure 122 mm[Hg] Dr. Margot Mai Work Phone: [facility] 02-27-2022 10:30-0400 Body height 188 cm Keny Linardi AURICULAR THERAPIST.[employer] Work Phone: [facility] 02-27-2022 10:30-0400 Body weight 152.41 kg Keny Linardi AURICULAR THERAPIST.[employer] Work Phone: [facility] 02-27-2022 10:30-0400 Diastolic blood pressure 75 mm[Hg] Keny Linardi AURICULAR THERAPIST.[employer] H[employer]ER Work Phone: [facility] 02-27-2022 10:30-0400 Heart rate 123 /min Keny Linardi AURICULAR THERAPIST.[employer]ER Work Phone: [facility] 02-27-2022 10:30-0400 Respiratory rate 18 /min Keny Linardi AURICULAR THERAPIST.DO[employer]ER Work Phone: [facility] 02-27-2022 10:30-0400 SaO2% (BldA) [Mass fraction] 97 % Keny Linardi AURICULAR THERAPIST.[employer]ER Work Phone: [facility] 02-27-2022 10:30-0400 Systolic blood pressure 105 mm[Hg] Keny Linardi AURICULAR THERAPIST.[employer] H[employer]ER Work Phone: [facility] 01-02-2022 09:02-0400 Body height 188 cm Lamar Nogueira MD Work Phone: [facility] 01-02-2022 09:02-0400 Body weight 152.41 kg Lamar Nogueira MD Work Phone: [facility] 01-02-2022 09:02-0400 Diastolic blood pressure 80 mm[Hg] Lamar Nogueira MD Work Phone: [facility] 01-02-2022 09:02-0400 Heart rate 65 /min Lamar Nogueira MD Work Phone: [facility] 01-02-2022 09:02-0400 Respiratory rate 18 /min Lamar Nogueira MD Work Phone: [facility] 01-02-2022 09:02-0400 SaO2% (BldA) [Mass fraction] 96 % Lamar Nogueira MD Work Phone: [facility] 01-02-2022 09:02-0400 Systolic blood pressure 116 mm[Hg] Lamar Nogueira MD Work Phone: [facility] 11-25-2021 09:21-0400 Body height 187.[address] Margot Mai Work Phone: [facility] Work Phone: 11-25-2021 09:21-0400 Body weight 151.[address] Margot Mai Work Phone: [facility] Work Phone: 11-24-2021 12:39-0400 Body mass index (BMI) [Ratio] 42.7 kg/m2 Dr. Margot Mai Work Phone: [facility] Work Phone: 11-16-2021 09:28-0400 Heart rate 80 /min Dr. Margot Mai Work Phone: [facility] Work Phone: 11-16-2021 09:28-0400 Body mass index (BMI) [Ratio] 42.7 kg/m2 Dr. Margot Mai Work Phone: [facility] Work Phone: 11-16-2021 09:28-0400 Body weight 151.[address] Margot Mai Work Phone: [facility] Work Phone: 11-16-2021 09:28-0400 Diastolic blood pressure 83 mm[Hg] Dr. Margot Mai Work Phone: [facility] Work Phone: 11-16-2021 09:28-0400 Respiratory rate 20 /min Dr. Margot Mai Work Phone: [facility] Work Phone: 11-16-2021 09:28-0400 SaO2% (BldA) [Mass fraction] 96 % Dr. Margot Mai Work Phone: [facility] Work Phone: 11-16-2021 09:28-0400 Systolic blood pressure 116 mm[Hg] Dr. Margot Mai Work Phone: [facility] Work Phone: 10-27-2021 10:59-0400 Body height 187.[address] Margot Mai Work Phone: [facility] Work Phone: 10-27-2021 10:59-0400 Body weight 150.[address] Margot Mai Work Phone: [facility] Work Phone: 10-26-2021 09:28-0400 Body mass index (BMI) [Ratio] 42.5 kg/m2 Dr. Margot Mai Work Phone: [facility] Work Phone: 10-04-2021 09:55-0400 Body mass index (BMI) [Ratio] 41.7 kg/m2 Dr. Margot Mai Work Phone: [facility] Work Phone: 10-04-2021 09:55-0400 Body weight 147.[address] Margot Mai Work Phone: [facility] Work Phone: 10-04-2021 09:55-0400 Heart rate 107 /min Dr. Margot Mai Work Phone: [facility] Work Phone: 10-04-2021 09:55-0400 Respiratory rate 18 /min Dr. Margot Mai Work Phone: [facility] Work Phone: 10-04-2021 09:55-0400 SaO2% (BldA) [Mass fraction] 100 % Dr. Margot Mai Work Phone: [facility] Work Phone: 10-04-2021 09:55-0400 Body height 187.[address] Margot Mai Work Phone: [facility] Work Phone: 10-04-2021 09:55-0400 Body mass index (BMI) [Ratio] 41.7 kg/m2 Dr. Margot Mai Work Phone: [facility] Work Phone: 10-04-2021 09:55-0400 Body weight 147.[address] Margot Mai Work Phone: [facility] Work Phone: 10-04-2021 09:55-0400 Heart rate 107 /min Dr. Margot Mai Work Phone: [facility] Work Phone: 10-04-2021 09:55-0400 Respiratory rate 18 /min Dr. Margot Mai Work Phone: [facility] Work Phone: 10-04-2021 09:55-0400 SaO2% (BldA) [Mass fraction] 100 % Dr. Margot Mai Work Phone: [facility] Work Phone: 09-30-2021 10:53-0400 Body height 187.[address] Margot Mai Work Phone: [facility] Work Phone: 09-30-2021 10:53-0400 Body weight 150.[address] Margot Mai Work Phone: [facility] Work Phone: 09-29-2021 08:39-0400 Body mass index (BMI) [Ratio] 42.5 kg/m2 Dr. Margot Mai Work Phone: [facility] Work Phone: 09-07-2021 10:09-0400 Heart rate 88 /min Dr. Margot Mai Work Phone: [facility] Work Phone: 09-07-2021 10:09-0400 Heart rate 88 /min Dr. Margot Mai Work Phone: [facility] Work Phone: 09-07-2021 09:33-0400 Body mass index (BMI) [Ratio] 42.5 kg/m2 Dr. Margot Mai Work Phone: [facility] Work Phone: 09-07-2021 09:33-0400 Body weight 150.[address] Margot Mai Work Phone: [facility] Work Phone: 09-07-2021 09:33-0400 Diastolic blood pressure 85 mm[Hg] Dr. Margot Mai Work Phone: [facility] Work Phone: 09-07-2021 09:33-0400 Respiratory rate 18 /min Dr. Margot Mai Work Phone: [facility] Work Phone: 09-07-2021 09:33-0400 SaO2% (BldA) [Mass fraction] 100 % Dr. Margot Mai Work Phone: [facility] Work Phone: 09-07-2021 09:33-0400 Systolic blood pressure 130 mm[Hg] Dr. Margot Mai Work Phone: [facility] Work Phone: 09-07-2021 09:33-0400 Body height 187.[address] Margot Mai Work Phone: [facility] Work Phone: 09-07-2021 09:33-0400 Body mass index (BMI) [Ratio] 42.5 kg/m2 Dr. Margot Mai Work Phone: [facility] Work Phone: 09-07-2021 09:33-0400 Body weight 150.[address] Margot Mai Work Phone: [facility] Work Phone: 09-07-2021 09:33-0400 Diastolic blood pressure 85 mm[Hg] Dr. Margot Mai Work Phone: [facility] Work Phone: 09-07-2021 09:33-0400 Respiratory rate 18 /min Dr. Margot Mai Work Phone: [facility] Work Phone: 09-07-2021 09:33-0400 SaO2% (BldA) [Mass fraction] 100 % Dr. Margot Mai Work Phone: [facility] Work Phone: 09-07-2021 09:33-0400 Systolic blood pressure 130 mm[Hg] Dr. Margot Mai Work Phone: [facility] Work Phone: 08-16-2021 18:00-0400 Body temperature 97.2 [degF] Dr. Margot Mai Work Phone: [facility] Work Phone: 08-16-2021 18:00-0400 Diastolic blood pressure 68 mm[Hg] Dr. Margot Mai Work Phone: [facility] Work Phone: 08-16-2021 18:00-0400 Heart rate 85 /min Dr. Margot Mai Work Phone: [facility] Work Phone: 08-16-2021 18:00-0400 Respiratory rate 18 /min Dr. Margot Mai Work Phone: [facility] Work Phone: 08-16-2021 18:00-0400 SaO2% (BldA) [Mass fraction] 97 % Dr. Margot Mai Work Phone: [facility] Work Phone: 08-16-2021 18:00-0400 Systolic blood pressure 118 mm[Hg] Dr. Margot Mai Work Phone: [facility] Work Phone: 08-16-2021 05:34-0400 Body weight 154.[address] Margot Mai Work Phone: [facility] Work Phone: 08-15-2021 15:47-0400 Body height 187.[address] Margot Mai Work Phone: [facility] Work Phone: 08-15-2021 01:29-0400 Body mass index (BMI) [Ratio] 44 kg/m2 Dr. Margot Mai Work Phone: [facility] Work Phone: 08-15-2021 00:45-0400 Diastolic blood pressure 69 mm[Hg] Dr. Margot Mai Work Phone: [facility] Work Phone: 08-15-2021 00:45-0400 Heart rate 128 /min Dr. Margot aMi Work Phone: [facility] Work Phone: 08-15-2021 00:45-0400 Respiratory rate 16 /min Dr. Margot Mai Work Phone: [facility] Work Phone: 08-15-2021 00:45-0400 SaO2% (BldA) [Mass fraction] 96 % Dr. Margot Mai Work Phone: [facility] Work Phone: 08-15-2021 00:45-0400 Systolic blood pressure 109 mm[Hg] Dr. Margot Mai Work Phone: [facility] Work Phone: 08-15-2021 00:03-0400 Body temperature 97.9 [degF] Dr. Margot Mai Work Phone: [facility] Work Phone: 08-14-2021 21:03-0400 Body height 187.[address] Margot Mai Work Phone: [facility] Work Phone: 08-14-2021 21:03-0400 Body mass index (BMI) [Ratio] 43.6 kg/m2 Dr. Margot Mai Work Phone: [facility] Work Phone: 08-14-2021 21:03-0400 Body weight 154.[address] Margot Mai Work Phone: [facility] Work Phone: Encounters Encounter Date Encounter Type Care Provider Facility Start: 12-10-2024 ambulatory Bipin Friend Facility :[facility] Start: 11-27-2024 End: 11-27-2024 Patient encounter procedure Lucas Lutz Work Phone: Podiatry Comment on above: Ulcer of toe of left foot, with fat layer exposed (HCC) (Primary Dx); Acquired hallux valgus of left foot; Hammer toe of left foot; Diabetic polyneuropathy associated with type 2 diabetes mellitus (HCC) Start: 11-27-2024 End: 11-27-2024 ambulatory LUCAS LUTZ Facility:[facility] Start: 11-20-2024 End: 11-20-2024 Patient encounter procedure Carmen WHIPPLE -[facility] Work Phone: Start: 11-20-2024 End: 11-20-[address] Margot Mai MD Work Phone: [facility] Start: 11-13-2024 End: 11-13-2024 Subsequent hospital visit by physician [facility] [employer] Work Phone: Radiology Comment on above: Ulcer of toe of left foot, with fat layer exposed (HCC) [L97.522] Start: 11-13-2024 End: 11-13-2024 Patient encounter procedure Lucas Lutz Work Phone: Podiatry Comment on above: Ulcer of toe of left foot, with fat layer exposed (HCC) (Primary Dx); Acquired hallux valgus of left foot; Hammer toe of left foot Start: 11-13-2024 End: 11-13-2024 ambulatory LUCAS LUTZ Facility:[facility] Start: 11-11-2024 End: 11-11-2024 Patient encounter procedure Nella WHIPPLE -[facility] Work Phone: Start: 11-11-2024 End: 11-11-[address] Margot Mai MD Work Phone: [facility] Start: 11-04-2024 End: 11-11-2024 Follow-up encounter Lucas Lutz Work Phone: Podiatry Start: 10-28-2024 End: 10-28-2024 Subsequent hospital visit by physician Xr [facility] [employer] Work Phone: Radiology Comment on above: Acquired hallux valg us of left foot [M20.12] Start: 10-28-2024 End: 10-28-2024 ambulatory LUCAS LUTZ Facility:[facility] Start: 10-28-2024 End: 10-28-2024 Patient encounter procedure Lucas Lutz Work Phone: Podiatry Comment on above: Onychomycosis (Prima ry Dx); Pain in toe of left foot; Pain in toe of right foot; Diabetic polyneuropathy associated with type 2 diabetes mellitus (HCC); Acquired hallux valgus of left foot; Skin ulcer of toe with fat layer exposed, unspecified laterality (HCC) Start: 10-14-2024 End: 10-14-[address] Margot Mai MD Work Phone: [facility] Work Phone: Start: 10-14-2024 End: 10-14-2024 Patient encounter procedure Nella WHIPPLE -Laboratory Work Phone: Start: 10-13-2024 End: 10-13-2024 Office outpatient visit 25 minutes Lamar Nogueira MD Work Phone: [facility] Cardiology [place] Comment on above: Persistent atrial fi brillation (HCC) (Primary Dx); Status post catheter ablation of atrial fibrillation; Atypical atrial flutter (HCC); At risk for stroke; Anticoagulant long-term use; Primary cardiomyopathy (HCC); Chronic HFrEF (heart failure with reduced ejection fraction) (HCC); Obesity, Class III, BMI 40-49.9 (morbid obesity); MARIELLA on CPAP Start: 10-13-2024 End: 10-14-2024 ambulatory LAMAR NOGUEIRA Facility:[facility] Start: 2024 End: [address] Margot Mai MD Work Phone: [facility] Work Phone: Start: 2024 End: [address] Margot Mai MD -Laboratory Work Phone: Start: 2024 End: 2024 ambulatory Margot Mai Facility:[facility] Start: 08-18-2024 ambulatory Yvonne Mix y:[facility] Start: 08-14-2024 End: 08-14-2024 Patient encounter procedure Nella WHIPPLE -[facility] Work Phone: Start: 08-14-2024 End: 08-14-2024 ambulatory Nella Hopkins Facility:[facility] Start: 08-12-2024 End: 08-12-[address] Buster Harvey MD -[facility] Work Phone: Start: 08-12-2024 End: 08-12-2024 ambulatory Buster Harvey Facility:[facility] Start: 08-12-2024 Non-patient / Non-visit Dr. Yfn stanley MD -[facility] Work Phone: Start: 08-11-2024 Non-patient / Non-visit Dr. Yfn stanley MD -[facility] Work Phone: Start: 08-10-2024 Non-patient / Non-visit Dr. Annetta Mar [facility] Work Phone: Start: 08-09-2024 Non-patient / Non-visit Bipin Cárdenas nd [facility] Start: 08-09-2024 Non-patient / Non-visit Dr. Annetta Mar [facility] Work Phone: Start: 08-08-2024 Non-patient / Non-visit Dr. Annetta Mar [facility] Work Phone: Start: 08-07-2024 Non-patient / Non-visit Dr. Annetta Mar [facility] Work Phone: Start: 08-06-2024 ambulatory Yfn Moran ty:[facility] Start: 08-06-2024 End: 08-12-2024 Evaluation and management of inpatient Dr. Yfn Mccarthy MD -Progressive Care Unit Work Phone: Start: 08-05-2024 End: 08-06-2024 Emergency department patient visit Dr. Margot Mai MD Work Phone: -Emergency Department Work Phone: Start: 07-28-2024 End: 07-28-[address] Yvonne Tamayo MD -[facility] Work Phone: Start: 07-28-2024 End: 07-28-2024 ambulatory Yvonne Tamayo Facility:[facility] Start: 07-25-2024 End: 07-25-2024 ambulatory LUCAS LAURITAGE Facility:[facility] Start: 07-25-2024 End: 07-25-2024 Patient encounter procedure Lucas Lutz Work Phone: Podiatry Comment on above: Onychomycosis (Prima ry Dx); Pain in toe of left foot; Pain in toe of right foot; Diabetic polyneuropathy associated with type 2 diabetes mellitus (HCC); Hallux valgus of left foot; Hammer toe of left foot Start: 07-09-2024 End: 07-09-2024 Telephone encounter Lamar Nogueira MD Work Phone: [facility] [place] Start: 07-09-2024 End: 07-09-[address] Margot Mai MD Work Phone: [facility] Work Phone: Start: 07-09-2024 End: 07-09-2024 Patient encounter procedure aLla Galvez NP-C -Radiology, [place] Work Phone: Start: 07-08-2024 End: 07-09-2024 ambulatory LAMAR NOGUEIRA Facility:[facility] Start: 06-26-2024 End: 06-26-2024 Telephone encounter Lamar Nogueira MD Work Phone: [facility] [place] Comment on above: Preparations For Pro cedures Start: 06-23-2024 End: 06-24-2024 ambulatory Keny Alexander APRN.DOOR HANGER Work Phone: [facility] [place] Comment on above: Metoprolol Start: 06-23-2024 End: 06-23-2024 Telephone encounter Keny Alexander APRN.DOOR HANGER Work Phone: [facility] Cardiology [place] Comment on above: Patient Update; Makeda rs Start: 06-19-2024 End: 06-19-2024 Telephone encounter Anisa [facility] Start: 05-30-2024 ambulatory KENY ALEXANDER Facility:[facility] Start: 05-30-2024 End: 05-30-2024 Subsequent hospital visit by physician Ekg/Holter/Event Monitor [place] [facility] Comment on above: Persistent atrial fi brillation (HCC) [I48.19] Start: 05-20-2024 ambulatory Buster Wes Facility:[facility] Start: 05-20-2024 Non-patient / Non-visit Dr. Buster neves MD -[facility] Start: 05-20-2024 End: 05-20-[address] Buster Harvey MD -[facility] Work Phone: Start: 05-20-2024 End: 05-20-2024 ambulatory Buster Harvey Facility:[facility] Start: 04-22-2024 End: 04-22-2024 [facility] Start: 04-22-2024 End: 04-22-2024 Patient encounter procedure Lucas Lutz Work Phone: Podiatry Comment on above: Diabetic polyneuropa thy associated with type 2 diabetes mellitus (HCC) (Primary Dx); Onychomycosis; Pain in toe of left foot; Pain in toe of right foot; Callus of foot Start: 04-21-2024 End: 04-21-[address] Buster Harvey MD -[facility] Work Phone: Start: 04-21-2024 End: 04-21-2024 ambulatory Buster Wes Facility:[facility] Start: 04-17-2024 End: 04-17-[address] Buster Harvey MD -[facility] Work Phone: Start: 04-17-2024 End: 04-17-2024 ambulatory Buster Wes Facility:[facility] Start: 04-04-2024 End: 04-04-2024 Telephone encounter Keny Alexander APRN.DOOR HANGER Work Phone: [place] [facility] Comment on above: Patient Update; Orde rs Start: 03-26-2024 End: 03-26-2024 ambulatory Keny Alexander APRN.DOOR HANGER Work Phone: [facility] [place] Comment on above: EKG Start: 03-24-2024 End: 03-24-2024 Telephone encounter Keny Alexander APRN.DOOR HANGER Work Phone: [facility] [place] Comment on above: Patient Update; Resu lts Start: 03-24-2024 End: 03-24-2024 Patient encounter procedure Keny Alexander APRN.DOOR HANGER Work Phone: [facility] [place] Comment on above: Persistent atrial fi brillation (HCC) (Primary Dx); Status post catheter ablation of atrial fibrillation; Atypical atrial flutter (HCC); Chronic HFrEF (heart failure with reduced ejection fraction) (HCC); Essential (primary) 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; MARIELLA on CPAP; At risk for stroke; Obesity, Class III, BMI 40-49.9 (morbid obesity) (HCC) Start: 03-24-2024 End: 03-24-2024 ambulatory KENY ALEXANDER Facility:[facility] Start: 01-15-2024 End: 01-15-2024 ambulatory LUCAS LUTZ Facility:[facility] Start: 01-15-2024 End: 01-15-2024 Patient encounter procedure Lucas Lutz Work Phone: Podiatry Comment on above: Diabetic polyneuropa thy associated with type 2 diabetes mellitus (HCC) (Primary Dx); Onychomycosis; Pain in toe of left foot; Pain in toe of right foot; Callus of foot Start: 10-11-2023 End: 10-11-2023 Patient encounter procedure Lucas Lutz Work Phone: Podiatry Comment on above: Diabetic polyneuropa thy associated with type 2 diabetes mellitus (HCC) (Primary Dx); Onychomycosis; Pain in toe of left foot; Pain in toe of right foot; Callus of foot Start: 09-17-2023 End: 09-17-2023 Patient encounter procedure Lamar Nogueira MD Work Phone: [facility] Cardiology [place] Comment on above: Persistent atrial fi brillation (HCC) (Primary Dx); Status post catheter ablation of atrial fibrillation; Primary cardiomyopathy (HCC); MARIELLA on CPAP; At risk for stroke; Anticoagulant long-term use Start: 08-24-2023 End: 08-24-2023 Patient encounter procedure Lucas Lutz Work Phone: Podiatry Comment on above: Callus of foot (Prim stephanie Dx); Hallux valgus of left foot; Other diabetic neurological complication associated with type 2 diabetes mellitus (HCC) Start: 07-26-2023 End: 07-26-[address] Margot Mai Work Phone: [facility] Work Phone: Start: 07-26-2023 End: 07-26-[address] Margot Mai Work Phone: [facility]-Laboratory, Specimen Work Phone: Start: 07-20-2023 End: 07-20-[address] Margot Mai Work Phone: [facility] Work Phone: Start: 07-12-2023 End: 07-12-2023 Subsequent hospital visit by physician [facility] Work Phone: Radiology Comment on above: Ulcer of toe of left foot, with fat layer exposed (HCC) [L97.522] Start: 07-12-2023 End: 07-12-2023 Patient encounter procedure Lucas Lutz Work Phone: Podiatry Comment on above: Other diabetic neuro logical complication associated with type 2 diabetes mellitus (HCC) (Primary Dx); Onychomycosis; Pain in toe of left foot; Pain in toe of right foot; Hallux valgus of left foot; Ulcer of toe of left foot, with fat layer exposed (HCC) Start: 05-17-2023 End: 05-17-[address] Margot Mai Work Phone: [facility] Work Phone: Start: 04-28-2023 End: 05-13-2023 ambulatory [facility] Work Phone: Start: 04-28-2023 End: 05-13-2023 [facility] Start: 04-09-2023 End: 04-09-2023 Patient encounter procedure Lucas Lutz Work Phone: Podiatry Comment on above: Other diabetic neuro logical complication associated with type 2 diabetes mellitus (HCC) (Primary Dx); Onychomycosis; Pain in toe of left foot; Pain in toe of right foot Start: 02-17-2023 End: 02-17-[address] Margot Mai Work Phone: [facility] Work Phone: Start: 02-17-2023 End: 02-17-[address] Margot Mai Work Phone: [facility] Work Phone: Start: 01-13-2023 End: 01-13-[address] Margot Mai Work Phone: [facility] Work Phone: Start: 01-13-2023 End: 01-13-[address] Margot Mai Work Phone: [facility] Work Phone: Start: 01-09-2023 Telephone encounter Keny taylor APRN.CNP Work Phone: [facility] Cardiology [place] Comment on above: Results Start: 12-28-2022 End: 12-28-2022 Patient encounter procedure Lucas Gonzalesge Work Phone: Podiatry Comment on above: Other diabetic neuro logical complication associated with type 2 diabetes mellitus (HCC) (Primary Dx); Hyperkeratosis; Onychomycosis; Pain in toe of left foot; Pain in toe of right foot Start: 12-19-2022 End: 12-19-2022 Patient encounter procedure Keny Alexander APRN.CNP Work Phone: [facility] [place] Comment on above: Persistent atrial fi brillation (HCC) (Primary Dx); Status post catheter ablation of atrial fibrillation; Essential (primary) 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; MARIELLA on CPAP; At risk for stroke; Obesity, Class III, BMI 40-49.9 (morbid obesity) (HCC) Start: 11-28-2022 End: 11-28-[address] Margot Mai Work Phone: [facility] Work Phone: Start: 11-27-2022 End: 12-11-[address] Margot Mai Work Phone: [facility] Work Phone: Start: 11-27-2022 End: 12-11-[address] Margot Mai Work Phone: [facility] Work Phone: Start: 10-20-2022 End: 10-20-[address] Margot Mai Work Phone: [facility] Work Phone: Start: 10-20-2022 End: 10-20-[address] 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 Margot Mai Work Phone: [facility] Work Phone: Start: 09-19-2022 End: 10-11-[address] Margot Mai Work Phone: [facility]Laboratory Start: 09-05-2022 End: 09-10-[address] Margot Mai Work Phone: [facility] Work Phone: Start: 09-05-2022 End: 09-10-[address] 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 Margot Mai Work Phone: [facility] Work Phone: Start: 08-08-2022 End: 08-11-[address] Margot Mai Work Phone: [facility]Laboratory Start: 08-01-2022 End: 08-01-[address] Margot Mai Work Phone: [facility] Start: 07-19-2022 Non-patient / Non-visit Dr. Mariano Mai Work Phone: [facility] Start: 07-17-2022 Telephone encounter Lamar zambrano MD Work Phone: [facility] [place] Comment on above: Fiscal Accountant - O ther Start: 07-10-2022 End: 07-10-[address] Margot Mai Work Phone: [facility] Work Phone: Start: 07-10-2022 End: 07-10-[address] Margot Mai Work Phone: [facility]Laboratory Start: 06-13-2022 End: 06-13-[address] Margot Mai Work Phone: [facility] Work Phone: Start: 06-13-2022 End: 06-13-[address] Margot Mai Work Phone: [facility]Labor[facility] Start: 06-12-2022 Telephone encounter Lamar zambrano MD Work Phone: [facility] [place] Comment on above: Preparations For Pro cedures Start: 06-07-2022 Telephone encounter Keny taylor APRN.DOOR HANGER Work Phone: [facility] [place] Comment on above: Fiscal Accountant - O ther (Diltiazem CR Prior Auth) Start: 06-06-2022 Telephone encounter Keny taylor APRN.DOOR HANGER Work Phone: [facility] [place] Comment on above: Orders; Treatment Pl anning Start: 06-06-2022 End: 06-06-2022 Patient encounter procedure Keny Alexander APRN.DOOR HANGER Work Phone: [facility] [place] Comment on above: Status post catheter ablation of atrial fibrillation (Primary Dx); Chronic HFrEF (heart failure with reduced ejection fraction) (HCC); Persistent atrial fibrillation (HCC); At risk for stroke Start: 06-06-2022 End: 06-06-2022 Subsequent hospital visit by physician Holter/Event Monitor [place] [facility] Comment on above: Dyspnea, unspecified type [R06.00] Start: 06-02-2022 End: 06-02-[address] Margot Mai Work Phone: [facility] Start: 05-24-2022 End: 05-24-2022 Non-patient / Non-visit Dr. Margot Mai Work Phone: [facility] Start: 05-24-2022 End: 05-24-2022 Admission to same day surgery center Dr. Margot Mai Work Phone: [facility]-Endoscopy Start: 05-24-2022 End: 05-24-[address] Margot Mai Work Phone: [facility] Work Phone: Start: 05-11-2022 End: 05-13-[address] Margot Mai Work Phone: [facility] Work Phone: Start: 05-11-2022 End: 05-13-[address] Margot Mai Work Phone: [facility]-Laboratory, [facility] Start: 05-11-2022 End: 05-11-[address] Margot Mai Work Phone: [facility] Start: 03-29-2022 End: 04-12-[address] Margot Mai Work Phone: [facility] Work Phone: Start: 03-29-2022 End: 04-12-[address] Margot Mai Work Phone: [facility] Start: 03-10-2022 Non-patient / Non-visit Dr. Mariano Mai Work Phone: [facility] Start: 03-08-2022 Telephone encounter Lamar zambrano MD Work Phone: [facility] Comment on above: Orders Start: 02-28-2022 End: 02-28-[address] Margot Mai Work Phone: [facility] Work Phone: Start: 02-28-2022 End: 02-28-[address] Margot Mai Work Phone: [facility]-Laboratory Start: 02-27-2022 End: 02-27-2022 Patient encounter procedure Keny Alexander APRN.CNP Work Phone: [facility] Comment on above: Persistent atrial fi brillation (HCC) (Primary Dx); Chronic HFrEF (heart failure with reduced ejection fraction) (HCC); At risk for stroke; MARIELLA on CPAP; Obesity, Class III, BMI 40-49.9 (morbid obesity) (HCC) Start: 02-20-2022 Telephone encounter Lamar zambrano MD Work Phone: [facility] Comment on above: Preparations For Pro cedures Start: 02-07-2022 End: 02-07-[address] Margot Mai Work Phone: [facility] Work Phone: Start: 02-07-2022 End: 02-07-[address] Margot Mai Work Phone: [facility] Start: 01-25-2022 Telephone encounter Lamar zambrano MD Work Phone: [facility] Comment on above: Results (INR levels from [facility]) Start: 01-24-[address] Lolis Mai Work Phone: [facility]Laboratory Start: 01-20-2022 Non-patient / Non-visit Dr. Mariano Mai Work Phone: [facility] Start: 01-20-2022 End: 01-20-[address] Margot Mai Work Phone: [facility] Work Phone: Start: 01-20-2022 End: 01-20-[address] Margot Mai Work Phone: [facility]-Cardiovascular Services Start: 01-10-2022 End: 01-10-[address] Margot Mai Work Phone: [facility] Work Phone: Start: 01-10-2022 End: 01-10-[address] Margot Mai Work Phone: [facility]Laboratory Start: 01-02-2022 End: 01-02-2022 Patient encounter procedure Lamar Nogueira MD Work Phone: [facility] [place] Comment on above: Persistent atrial fi brillation (HCC) (Primary Dx); At risk for stroke; Anticoagulant long-term use; Primary cardiomyopathy (HCC); Chronic HFrEF (heart failure with reduced ejection fraction) (HCC); MARIELLA on CPAP; Obesity, Class III, BMI 40-49.9 (morbid obesity) (HCC) Start: 11-28-2021 Telephone encounter Ag Card Work Phone: [facility] [place] Comment on above: Appointment Start: 11-25-2021 End: 11-25-2021 Admission to same day surgery center Dr. Margot Mai Work Phone: [facility]-Technical Support Technician/Special Procedures Start: 11-25-2021 Non-patient / Non-visit Dr. Mariano Mai Work Phone: [facility] Start: 11-16-2021 End: 12-11-[address] Margot Mai Work Phone: [facility]-Laboratory Start: 11-16-[address] Lolis Mai Work Phone: [facility] Start: 11-16-2021 End: 11-16-[address] Margot Mai Work Phone: [facility] Start: 10-27-2021 Non-patient / Non-visit Dr. Mariano Mai Work Phone: [facility] Start: 10-27-2021 End: 10-27-2021 Admission to same day surgery center Dr. Margot Mai Work Phone: [facility]-Technical Support Technician/Special Procedures Start: 10-25-2021 End: 10-25-[address] Margot Mai Work Phone: [facility] Start: 10-25-[address] Lolis Mai Work Phone: [facility] Start: 10-11-2021 End: 10-11-[address] Margot Mai Work Phone: [facility] Start: 10-04-2021 End: 10-04-[address] Margot Mai Work Phone: [facility] Start: 09-30-2021 Non-patient / Non-visit Dr. Mariano Mai Work Phone: [facility] Start: 09-30-2021 End: 09-30-2021 Admission to same day surgery center Dr. Margot Mai Work Phone: [facility]-Technical Support Technician/Special Procedures Start: 09-28-2021 End: 09-28-[address] Margot Mai Work Phone: [facility]-Laboratory Start: 09-21-[address] Lolis Mai Work Phone: [facility] Start: 09-07-2021 End: 09-07-[address] Margot Mai Work Phone: [facility] Start: 08-22-2021 End: 08-22-[address] Margot Mai Work Phone: [facility] Start: 08-16-2021 Non-patient / Non-visit Dr. Mariano Mai Work Phone: [facility] Start: 08-16-2021 Non-patient / Non-visit Dr. Mariano Mai Work Phone: [facility] Start: 08-15-2021 Non-patient / Non-visit Dr. Mariano Mai Work Phone: [facility] Start: 08-15-2021 Non-patient / Non-visit Dr. Mariano Mai Work Phone: [facility] Start: 08-14-2021 Non-patient / Non-visit Dr. Mariano Mai Work Phone: [facility] Start: 08-14-2021 End: 08-16-2021 Evaluation and management of inpatient Dr. Margot Mai Work Phone: [facility] Start: 11-11-2013 Patient encounter status Ag Card Work Phone: [facility] Work Phone: Procedures Date Procedure Procedure Detail Performing Clinician Start: 11-13-2024 Radex toe minimum 2 views Lucas Lutz Work Phone: Start: 10-28-2024 Cul bact xcpt urine blood/stool aerobic isol Lucas Lutz Work Phone: Start: 10-14-2024 Flow cytometry cell surf marker techl only 1st Dr. Margot Mai MD Work Phone: Start: 10-13-2024 Ecg routine ecg w/le ast 12 lds w/i&r Lamar Nogueira MD Work Phone: Start: 08-12-2024 Flow cytometry cell surf marker techl only 1st Dr. Margot Mai MD Work Phone: Start: 08-12-[address] Margot Mai MD Work Phone: Start: 08-12-2024 Serum inorganic phos phate measurement Dr. Margot Mai MD Work Phone: Start: 08-11-[address] Margot Mai MD Work Phone: Start: 08-11-2024 Complete ultrasound of kidneys and bladder Dr. Margot Mai MD Work Phone: Start: 08-11-2024 Albumin/Globulin ratio Dr. Margot Mai MD Work Phone: Start: 08-11-[address] Lima Mai MD Work Phone: Comment on above: The atypical pANCA p attern has been observed in asignificant percentage of patients with ulcerative colitis,primary sclerosing cholangitis and autoimmune hepatitis.Performed at: [facility] [address] [id number] Director: Clay Agustin PhD, Phone: [phone] at: [facility] [id number] Director: Moustapha Tellez MD, Phone: [phone] Start: 08-11-2024 Antibody to centrome re measurement Dr. Margot Mai MD Work Phone: Comment on above: Previous reported re sult: TNP AIEdited by: INFCE on 08/12/24:1308 AMENDED REPORT 08/12/24 1308 ANTI-CENT B previously reported as: Test not performed Start: 08-11-2024 Antibody to extracta ble nuclear antigen measurement Dr. Margot Mai MD Work Phone: Comment on above: Previous reported re sult: TNP AIEdited by: INFCE on 08/12/24:1308 AMENDED REPORT 08/12/24 1308 ROE Ab previously reported as: Test not performed Start: 08-11-2024 Antibody to BEBE-[address] Margot Mai MD Work Phone: Comment on above: Previous reported re sult: TNP AIEdited by: INFCE on 08/12/24:1308 AMENDED REPORT 08/12/24 1308 ANTI-BEBE previously reported as: Test not performed Start: 08-11-2024 Antibody to lupus La protein measurement Dr. Margot Mai MD Work Phone: Comment on above: Previous reported re sult: TNP AIEdited by: INFCE on 08/12/24:1308 AMENDED REPORT 08/12/24 1308 Anti-SS-B previously reported as: Test not performed Start: 08-11-2024 Antibody to SS-A measurement Dr. Margot Mai MD Work Phone: Comment on above: Previous reported re sult: TNP AIEdited by: INFCE on 08/12/24:1308 AMENDED REPORT 08/12/24 1308 Anti-SS-A previously reported as: Test not performed Start: 08-11-[address] Margot Mai MD Work Phone: Comment on above: Previous reported re sult: TNP AIEdited by: INFCE on 08/12/24:1308 AMENDED REPORT 08/12/24 1308 ANTICHROMATIN previously reported as: Test not performed Start: 08-11-2024 Endomysial antibody IgA level Dr. Margot Mai MD Work Phone: Start: 08-11-2024 Gliadin antibody, Ig A measurement Dr. Margot Mai MD Work Phone: Comment on above: Negative 0 - 19 Weak Positive 20 - 30 Moderate to Strong Positive >30 Start: 08-11-2024 Gliadin antibody, Ig G measurement Dr. Margot Mai MD Work Phone: Comment on above: Negative 0 - 19 Weak Positive 20 - 30 Moderate to Strong Positive >30 Start: 08-11-2024 Immunoglobulin G sub class, G4 measurement Dr. Margot Mai MD Work Phone: Start: 08-11-[address] Margot Mai MD Work Phone: Start: 08-11-2024 Measurement of funga l antibody Dr. Margot Mai MD Work Phone: Comment on above: Negative: <45 Equivo yobany: 45-50 Positive: >50 Start: 08-11-[address] Margot Mai MD Work Phone: Start: 08-11-2024 WINDING DEPARTMENT SUPERVISOR antibody measurement Dr. Margot Mai MD Work Phone: Comment on above: Previous reported re sult: TNP AIEdited by: [email or web address] on 08/12/24:1308 AMENDED REPORT 08/12/24 1308 WINDING DEPARTMENT SUPERVISOR Ab previously reported as: Test not performed Start: 08-10-2024 Urnls dip stick/tabl et reagent auto microscopy Dr. Margot Mai MD Work Phone: Start: 08-10-[address] Lolis Mai MD Work Phone: Start: 08-09-2024 Nucleated red blood cell count procedure Dr. Margot Mai MD Work Phone: Start: 08-06-2024 Clostridium difficil e detection Dr. Margot Mai MD Work Phone: Start: 08-06-[address] Margot Mai MD Work Phone: Start: 08-06-[address] Margot Mai MD Work Phone: Start: 08-06-2024 Iadna-dna/rna gi pth gn multiplex probe tq 6-11 Dr. Margot Mai MD Work Phone: Start: 08-05-2024 Computed tomography of abdomen and pelvis with intravenous contrast Dr. Margot Mai MD Work Phone: Start: 08-05-2024 Measurement of occul t blood in stool specimen using immunoassay Dr. Margot Mai MD Work Phone: Start: 07-09-2024 X-ray of chest, PA a nd lateral views Dr. Margot Mai MD Work Phone: Start: 04-17-2024 Evaluation of diagno stic study results Dr. Margot Mai MD Work Phone: Start: 03-24-2024 Ecg routine ecg w/le ast 12 lds w/i&r Keny Linardi AURICULAR THERAPIST.DOOR HANGER Work Phone: Start: 09-17-2023 Ecg routine ecg w/le ast 12 lds w/i&r Lamar Nogueira MD Work Phone: Start: 12-19-2022 Ecg routine ecg w/le ast 12 lds w/i&r Keny Linardi AURICULAR THERAPIST.DOOR HANGER Work Phone: Start: 06-06-2022 Ecg routine ecg w/le ast 12 lds w/i&r Keny Linardi AURICULAR THERAPIST.DOOR HANGER Work Phone: Start: 06-06-2022 Echo tthrc r-t 2d w/wom-mode compl spec&colr d Lamar Nogueira MD Work Phone: Start: 05-24-[address] Margot Mai Work Phone: Start: 02-27-2022 Ecg routine ecg w/le ast 12 lds w/i&r Keny Alexander AURICULAR THERAPIST.DOOR HANGER Work Phone: Start: 01-02-2022 Ecg routine ecg w/le ast 12 lds w/i&r Lamar Nogueira MD Work Phone: Start: 08-14-2021 Plain chest X-ray Dr. Tino Mai Work Phone: Start: 10-29-2015 Colonoscopy Ag Card Work Phone: Plan of Treatment Date Care Activity Detail Author Start: 10-13-2025 BP Controlled (<130/80) BP Con trolled (<130/80) [facility] Start: 05-14-2025 Subsequent hospital visit by physician 05/14/2025 Hospital Encounter [address] [address] Lamar Nogueira MD [address] [address] Persistent atrial fibrillation (HCC) [I48.19] [facility] Comment on above: Persistent atrial fi brillation (HCC) [I48.19] Start: 04-20-2025 End: 04-20-2025 Patient encounter procedure 04/20/2025 8:00 AM EST Office Visit [facility] [address] [address] Keny Alexander, AURICULAR THERAPIST.DOOR HANGER [address] [place], [place] [id number] 6 month follow up- hlk [facility] Comment on above: 6 month follow up- h lk Start: 03-24-2025 BP Controlled (<130/80) BP Con trolled (<130/80) [facility] Start: 01-16-2025 End: 01-16-2025 Patient encounter procedure 01/16/2025 8:00 AM EDT Office Visit Podiatry [address] [place] [address] Lucas Lutz [address] [place] [address] x: Acquired hallux valgus of left foot [M20.12]; Skin ulcer of toe with fat layer exposed, unspecified laterality (HCC) [L97.502] Podiatry Comment on above: x: Acquired hallux v algus of left foot [M20.12]; Skin ulcer of toe with fat layer exposed, unspecified laterality (HCC) [L97.502] Start: 01-14-2025 Diabetic foot examination Diabetic F oot Exam [facility] Start: 01-12-2025 Influenza vaccination Influenza Vacc ine (#1) [facility] Start: 01-02-2025 End: 01-02-2025 Patient encounter procedure 01/02/2025 8:00 AM EDT Office Visit Podiatry [address] [place] [address] Lucas Lutz [address] [place] [address] x: Acquired hallux valgus of left foot [M20.12]; Skin ulcer of toe with fat layer exposed, unspecified laterality (HCC) [L97.502] Podiatry Comment on above: x: Acquired hallux v algus of left foot [M20.12]; Skin ulcer of toe with fat layer exposed, unspecified laterality (HCC) [L97.502] Start: 12-18-2024 End: 12-18-2024 Patient encounter procedure 12/18/2024 8:00 AM EDT Office Visit Podiatry [address] [place] [address] Lucas Lutz [address] [place] [address] x: Acquired hallux valgus of left foot [M20.12]; Skin ulcer of toe with fat layer exposed, unspecified laterality (HCC) [L97.502] Podiatry Comment on above: x: Acquired hallux v algus of left foot [M20.12]; Skin ulcer of toe with fat layer exposed, unspecified laterality (HCC) [L97.502] Start: 11-27-2024 End: 11-27-2024 Patient encounter procedure 11/27/2024 8:15 AM EDT Office Visit Podiatry [address] [place] [address] Lucas Lutz [address] [address] x: Acquired hallux valgus of left foot [M20.12]; Skin ulcer of toe with fat layer exposed, unspecified laterality (HCC) [L97.502] Podiatry Comment on above: x: Acquired hallux v algus of left foot [M20.12]; Skin ulcer of toe with fat layer exposed, unspecified laterality (HCC) [L97.502] Start: 11-13-2024 End: 11-13-2024 Patient encounter procedure 11/13/2024 8:00 AM EDT Office Visit Podiatry [address] [place] [address] Lucas Lutz [address] [facility] [place] [address] x: Acquired hallux valgus of left foot [M20.12]; Skin ulcer of toe with fat layer exposed, unspecified laterality (HCC) [L97.502] Podiatry Comment on above: x: Acquired hallux v algus of left foot [M20.12]; Skin ulcer of toe with fat layer exposed, unspecified laterality (HCC) [L97.502] Start: 10-31-2024 Subsequent hospital visit by physician 10/31/2024 Hospital Encounter [facility] [address] [place] [address] Lamar Nogueira MD [address] [place] [id number] Persistent atrial fibrillation (HCC) [I48.19] [facility] Comment on above: Persistent atrial fi brillation (HCC) [I48.19] Start: 10-28-2024 End: 10-28-2024 Patient encounter procedure Podiatry Comment on above: 3 month follow up na il care Start: 10-13-2024 End: 10-13-2024 Patient encounter procedure 10/13/2024 8:00 AM EDT Office Visit [facility] [address] [place] [address] Lamar Nogueira MD [address] [place] [phone] 6 month follow up for HCC [facility] Comment on above: 6 month follow up fo r HCC Start: 08-14-2024 Prothrombin time [facility] Start: 08-13-2024 Prothrombin time [facility] Start: 08-12-2024 Patient discharge [facility] Start: 08-11-2024 Immunoglobulin measurement [facility] Start: 08-11-2024 Laboratory test [facility] Start: 08-11-2024 Serum immunofixation [facility] Start: 08-11-2024 [facility] Start: 08-10-2024 Blood culture Blood Culture [facility] Start: 08-10-2024 [facility] Start: 08-09-2024 [facility] Start: 08-08-2024 Referral to gastroenterology service [facility] Start: 08-07-2024 [facility] Start: 08-06-2024 Ova and Parasites Ova and Parasites [facility] Start: 08-06-2024 Application of inter mittent pneumatic compression device [facility] Start: 08-06-2024 Following clinical p athway protocol [facility] Start: 08-06-2024 Assessment of risk o f venous thromboembolism [facility] Start: 08-06-2024 Care regimes management [facility] Start: 08-06-2024 Insertion of cathete r into peripheral vein [facility] Start: 08-06-2024 Measuring intake and output [facility] Start: 08-06-2024 Notification of physician [facility] Start: 08-06-2024 Providing care accor ding to standard [facility] Start: 08-06-2024 Provision of activit y privileges [facility] Start: 08-06-2024 Referral to service [facility] Start: 08-06-2024 End: 08-06-2024 [facility] Start: 08-06-2024 Admission procedure [facility] Start: 08-06-2024 Hospital admission, emergency, from emergency room, medical nature [facility] Start: 07-25-2024 End: 07-25-2024 Patient encounter procedure 07/25/2024 3:40 PM EDT Office Visit Podiatry [address] [place] [address] Lucas Lutz [address] [address] 3 mo follow up nail care Podiatry Comment on above: 3 mo follow up nail care Start: 07-08-2024 End: 07-08-2024 Admission to same day surgery center 07/08/2024 8:00 AM EST - 07/08/2024 9:30 AM EST [facility] [address] [place] [address] Lamar Nogueira MD [address] [place] [address] CARDIOVERSION EXTERNAL ELECTIVE [facility] Comment on above: CARDIOVERSION BACTERIOLOGY PROFESSOR AL ELECTIVE Start: 07-08-2024 End: 07-08-2024 Cardioversion elective arrhythmia external CARDIOVERSION EXTERNAL ELECTIVE Persistent atrial fibrillation (HCC) 07/08/2024 8:00 AM EST [facility] Start: 07-08-2024 Subsequent hospital visit by physician 07/08/2024 8:00 AM EST Hospital Encounter [facility] [address] [place] [address] Lamar Nogueira MD [address] [place] [address] Persistent atrial fibrillation (HCC) [I48.19] [facility] Comment on above: Persistent atrial fi brillation (HCC) [I48.19] Start: 04-22-2024 End: 04-22-2024 Patient encounter procedure Podiatry Comment on above: 3 month follow up na il care Start: 03-24-2024 End: 03-24-2024 Patient encounter procedure 03/24/2024 8:30 AM EST Office Visit [facility] [address] [place], [place] [phone] Keny Alexander APRN.DOOR HANGER [address] [place] [address] 6 month follow up with RONA HERRERANLima hebert [facility] Comment on above: 6 month follow up wi th RONA SHAH nd Start: 01-15-2024 End: 01-15-2024 Patient encounter procedure 01/15/2024 3:45 PM EDT Office Visit Podiatry [address] [place], [place] [phone] Lucas Lutz [address] [place] [address] 3 month follow up nail care Podiatry Comment on above: 3 month follow up na ny care Start: 01-13-2024 Covid-19 Vaccine ( season) Covid-19 Vaccine ( season) [facility] Start: 01-13-2024 Covid-19 Vaccine ( season) Covid-19 Vaccine ( season) [facility] Start: 01-13-2024 Influenza vaccination Influenza Vacc ine (#1) [facility] Start: 12-29-2023 3 comp foot exam completed DIABETIC FOOT EXAM [facility] Start: 12-29-2023 Diabetic foot examination Diabetic F oot Exam [facility] Start: 12-20-2023 BP CONTROLLED (<130/80) BP CON TROLLED (<130/80) [facility] Start: 10-28-2023 Hepatitis B screening URINE ALBUMIN:CREATININE RATIO [facility] Start: 10-28-2023 Hepatitis B surface antibody level LDL CHOLESTEROL [facility] Start: 10-11-2023 End: 10-11-2023 Patient encounter procedure 10/11/2023 8:00 AM EDT Office Visit Podiatry [address] [place] [phone] Lucas Lutz [address] [address] 3 REBEKAH FOLLOW UP NAIL CARE Podiatry Comment on above: 3 REBEKAH FOLLOW UP HUNG L CARE Start: 02-27-2023 BP CONTROLLED (<130/80) BP CON TROLLED (<130/80) [facility] Start: 01-12-2023 Covid-19 Vaccine () Covid-19 Vaccine () [facility] Start: 01-12-2023 Influenza vaccination [facility] Start: 08-01-2022 Evaluation of diagno stic study results [facility] Start: 06-01-2022 End: 03-08-2023 Echocardiography ECHO Cardiology Routine Dyspnea, unspecified type Persistent atrial fibrillation (HCC) Expected: 06/01/2022, Expires: 03/08/2023 [facility] Work Phone: Comment on above: Expected: 06/01/2022 , Expires: 03/08/2023 Start: 06-01-2022 End: 03-08-2023 HOLTER MONITOR 24 HOUR HOLTER MONITOR 24 HOUR ECG Routine Dyspnea, unspecified type Persistent atrial fibrillation (HCC) Expected: 06/01/2022, Expires: 03/08/2023 [facility] Work Phone: Comment on above: Expected: 06/01/2022 , Expires: 03/08/2023 Start: 05-24-2022 Colsc flx w/rmvl of tumor polyp lesion snare tq COLONOSCOPY W/LESION REMOVAL [facility] Start: 05-24-2022 Patient discharge [facility] Start: 01-20-2022 Echo tthrc r-t 2d w/wom-mode compl spec&colr d TTE W/DOPPLER COMPLETE [facility] Work Phone: Start: 01-12-2022 Influenza vaccination INFLUENZA (#1) [facility] Start: 08-16-2021 Patient discharge [facility] Work Phone: Start: 08-16-2021 Care planning and pr oblem solving actions [facility] Work Phone: Start: 08-15-2021 Referral to continuous pickling line pickler helper [facility] Work Phone: Start: 08-15-2021 Patient referral to dietitian [facility] Work Phone: Start: 08-15-2021 Care planning and pr oblem solving actions [facility] Work Phone: Start: 08-15-2021 Following clinical p athway protocol [facility] Work Phone: Start: 08-15-2021 Application of elast ic bandage [facility] Work Phone: Start: 08-15-2021 Assessment of risk o f venous thromboembolism [facility] Work Phone: Start: 08-15-2021 Care regimes management [facility] Work Phone: Start: 08-15-2021 Catheterization of vein [facility] Work Phone: Start: 08-15-2021 Continuous positive airway pressure ventilation treatment [facility] Work Phone: Start: 08-15-2021 Elevation of affecte d extremity [facility] Work Phone: Start: 08-15-2021 Insertion of cathete r into peripheral vein [facility] Work Phone: Start: 08-15-2021 Measuring intake and output [facility] Work Phone: Start: 08-15-2021 Medication education [facility] Work Phone: Start: 08-15-2021 Notification of physician [facility] Work Phone: Start: 08-15-2021 Oxygen therapy [facility] Work Phone: Start: 08-15-2021 Patient education [facility] Work Phone: Start: 08-15-2021 Providing care accor ding to standard [facility] Work Phone: Start: 08-15-2021 Provision of activit y privileges [facility] Work Phone: Start: 08-15-[facility] Start: 08-14-2021 Admission procedure [facility] Work Phone: Start: 10-28-2020 Colonoscopy COLONOSCOPY [facility] Start: 10-28-2020 COLORECTAL CANCER SCREENING CO LORECTAL CANCER SCREENING [facility] Start: 10-28-2020 Screening for malign ant neoplasm of colon [facility] Start: 2020 PROSTATE CANCER SCRE ENING DISCUSSION PROSTATE CANCER SCREENING DISCUSSION [facility] Start: 2020 Prostate specific an tigen measurement Prostate Cancer Screening Discussion [facility] Start: 09-18-2018 Urine microalbumin profile [facility] Start: 03-16-2018 3 comp foot exam completed DIABETIC FOOT EXAM [facility] Start: 03-16-2018 ANNUAL PCP TEAM SURVEYING TECHNICIAN JOLEEN DISEASE VISIT ANNUAL PCP TEAM CHRONIC DISEASE VISIT [facility] Start: 03-16-2018 Hepatitis B screening URINE ALBUMIN:CREATININE RATIO [facility] Start: 11-25-2017 Hepatitis B surface antibody level LDL CHOLESTEROL [facility] Start: 09-08-2017 Hemoglobin A1c/Hemoglobin.total in Blood HBA1C [facility] Start: 06-10-2017 Hemoglobin A1c measurement HbA1C [facility] Start: 06-10-2017 Hemoglobin A1c/Hemoglobin.total in Blood HBA1C [facility] Start: 01-31-2016 Glaucoma screening Dilated Retinal E xam [facility] Start: 01-31-2016 Hepatitis C antibody , confirmatory test DILATED RETINAL EXAM [facility] Start: 08-26-2015 Influenza vaccination LUNG CANCER SC REENING [facility] Start: 08-26-2015 Screening for malign ant neoplasm of lung Lung Cancer Screening [facility] Start: 08-26-2015 SHINGRIX VACCINE (1 of 2) WILSON GRIX VACCINE (1 of 2) [facility] Start: 2010 COLOGUARD (FIT-DNA) COLOGUARD (FIT-D NA) [facility] Start: [address] COLONOGRAPHY [facility] Start: 2010 FECAL OCCULT BLOOD FECAL OCCULT BLOO D [facility] Start: 2010 Prostate specific an tigen measurement Prostate Cancer Screening Discussion [facility] Start: 2010 Screening for malign ant neoplasm of colon [facility] Start: 2010 SIGMOIDOSCOPY SIGMOIDOSCOPY [facility] Start: 03-26-2010 PNEUMOCOCCAL (2 - PCV) PNEUMOCOCCAL (2 - PCV) [facility] Start: 03-26-2010 Pneumococcal vaccination [facility] Start: 03-26-2010 Pneumococcal Vaccine : 50+ (2 of 2 - PCV) Pneumococcal Vaccine: 50+ (2 of 2 - PCV) [facility] Start: 1984 Hepatitis B Vaccine (1 of 3 - 19+ 3-dose series) Hepatitis B Vaccine (1 of 3 - 19+ 3-dose series) [facility] Start: 08-26-1983 ANNUAL PCP TEAM SURVEYING TECHNICIAN JOLEEN DISEASE VISIT ANNUAL PCP TEAM CHRONIC DISEASE VISIT [facility] Start: 08-26-1983 Anxiety Screening Anxiety Screening [facility] Start: 08-26-1983 BP CONTROLLED (<130/80) BP CON TROLLED (<130/80) [facility] Start: 08-26-1983 HEPATITIS C SCREENING HEPATITIS C [facility] Start: 08-26-1983 Hepatitis C screening Hepatitis C [facility] Start: 08-26-1983 HIV SCREENING HIV SCREENING [facility] Start: 08-26-1983 HIV screening HIV Screening [facility] Start: 1977 Adult depression scr [facility] assessment DEPRESSION SCREENING [facility] Start: 02-24-1966 COVID-19 VACCINE (#1) COVID-19 VACCI NE (#1) [facility] Start: 1965 HEPATITIS B (1 of 3 - 3-dose series) HEPATITIS B (1 of 3 - 3-dose series) [facility] Start: 1965 Hepatitis B Vaccine (1 of 3 - 3-dose series) Hepatitis B Vaccine (1 of 3 - 3-dose series) [facility] Albumin [Moles/volum e] in Serum or Plasma [facility] Albumin/Globulin ratio [facility] identified in Wound by Culture BACTERIAL CULTURE AND GRAM STAIN, ABSCESS AND WOUND (AEROBIC CULTURE) Microbiology Routine Skin ulcer of toe with fat layer exposed, unspecified laterality (HCC) 10/28/2024 4:37 PM EDT [facility] Cardioversion [facility] Work Phone: Cardioversion electi ve arrhythmia external CARDIOVERSION EXTERNAL ELECTIVE Persistent atrial fibrillation (HCC) [place] [facility] CBC W Auto Different ial panel - Blood [facility] Chitobioside IgA Ab [Units/volume] in Serum or Plasma by Immunoassay [facility] Colonoscopy [facility] Work Phone: Colonoscopy [facility] Colonoscopy [facility] End: 04-04-2025 ECG COMPLETE ECG COMPLETE ECG Routine Persistent atrial fibrillation (HCC) 1 Occurrences starting 04/04/2024 until 04/04/2025 [facility] Work Phone: Comment on above: 1 Occurrences starti ng 04/04/2024 until 04/04/2025 End: 12-20-2023 Echocardiography ECHO Cardiology Routine Persistent atrial fibrillation (HCC) 1 Occurrences starting 12/19/2022 until 12/20/2023 [facility] Work Phone: Comment on above: 1 Occurrences starti ng 12/19/2022 until 12/20/2023 Electrophoresis: [id number] [facility] Electrophoresis: andrea ma globulin [facility] Ephys evl trnsptl tx atrial fib isolat pulm vein COMPRE EP EVAL ABLTJ ATR FIB PULM VEIN ISOLATION Persistent atrial fibrillation (HCC) [facility] End: 03-24-2025 EXTENDED WEAR DRY KILN OPERATOR PATCH EXTENDED WEAR DRY KILN OPERATOR PATCH ECG Routine Persistent atrial fibrillation (HCC) 1 Occurrences starting 03/24/2024 until 03/24/2025 [facility] Work Phone: Comment on above: 1 Occurrences starti ng 03/24/2024 until 03/24/2025 End: 05-30-2024 EXTENDED WEAR DRY KILN OPERATOR PATCH EXTENDED WEAR DRY KILN OPERATOR PATCH ECG Routine Persistent atrial fibrillation (HCC) 1 Occurrences starting 05/30/2024 until 05/30/2024 [facility] Work Phone: Comment on above: 1 Occurrences starti ng 05/30/2024 until 05/30/2024 Gliadin peptide IgA Ab [Units/volume] in Serum [facility] Gliadin peptide IgG Ab [Units/volume] in Serum [facility] Globulin measurement [facility] End: 06-06-2022 HOLTER MONITOR 24 HOUR HOLTER MONITOR 24 HOUR ECG Routine Dyspnea, unspecified type Persistent atrial fibrillation (HCC) 1 Occurrences starting 06/06/2022 until 06/06/2022 [facility] Work Phone: Comment on above: 1 Occurrences starti ng 06/06/2022 until 06/06/2022 IgA [Mass/volume] in Serum or Plasma [facility] IgE [Units/volume] i n Serum or Plasma [facility] IgG [Mass/volume] in Serum or Plasma [facility] IgG subclass 1 [Mass/volume] in Serum [facility] IgG subclass 2 [Mass/volume] in Serum [facility] IgG subclass 3 [Mass/volume] in Serum [facility] IgG subclass 4 [Mass/volume] in Serum [facility] IgM [Mass/volume] in Serum or Plasma [facility] Laboratory data interpretation [facility] Laminaribioside IgG Ab [Units/volume] in Serum or Plasma by Immunoassay [facility] Magnesium measurement [facility] Mannobioside IgG Ab [Units/volume] in Serum or Plasma by Immunoassay [facility] Measurement of funga l antibody [facility] Measurement of immunoglobulin A in serum specimen [facility] Neutrophil cytoplasm ic Ab.classic [Units/volume] in Serum [facility] Neutrophil cytoplasm ic Ab.perinuclear.atypical [Titer] in Serum by Immunofluorescence [facility] NM Heart Views W str ess and W radionuclide IV [facility] Work Phone: Ova OR parasites identification [facility] Ova OR parasites identification [facility] P-ANCA measurement [facility] Patient referral [facility] Work Phone: Protein electrophore sis panel - Serum or Plasma [facility] Tissue transglutamin ase IgA Ab [Units/volume] in Serum [facility] End: 08-10-2024 XR Foot - left AP and Lateral and oblique XR FOOT GENERAL 3V AP/LAT/OBL LEFT Radiology Routine Ulcer of toe of left foot, with fat layer exposed (HCC) 1 Occurrences starting 07/12/2023 until 08/10/2024 [facility] Work Phone: Comment on above: 1 Occurrences starti ng 07/12/2023 until 08/10/2024 XR Foot - left AP an d Lateral and oblique XR FOOT GENERAL 3V AP/LAT/OBL LEFT Radiology Routine Ulcer of toe of left foot, with fat layer exposed (HCC) 07/12/2023 9:09 AM EST [facility] Work Phone: XR Foot - left AP an d Lateral and oblique XR FOOT GENERAL 3V AP/LAT/OBL LEFT Radiology Routine Acquired hallux valgus of left foot Skin ulcer of toe with fat layer exposed, unspecified laterality (HCC) 10/28/2024 5:01 PM EDT [facility] Work Phone: End: 11-27-2025 XR Foot - left AP and Lateral and oblique XR FOOT GENERAL 3V AP/LAT/OBL LEFT Radiology Routine Acquired hallux valgus of left foot Skin ulcer of toe with fat layer exposed, unspecified laterality (HCC) 1 Occurrences starting 10/28/2024 until 11/27/2025 [facility] Work Phone: Comment on above: 1 Occurrences starti ng 10/28/2024 until 11/27/2025 XR Toes - left 3 Views XR TOE AP /LAT/OBL LEFT Radiology STAT Acquired hallux valgus of left foot Skin ulcer of toe with fat layer exposed, unspecified laterality (HCC) 10/28/2024 5:01 PM T [facility] End: 11-27-2025 XR Toes - left 3 Views XR TOE AP/LAT/OBL LEFT Radiology STAT Acquired hallux valgus of left foot Skin ulcer of toe with fat layer exposed, unspecified laterality (HCC) 1 Occurrences starting 10/28/2024 until 11/27/2025 [facility] Comment on above: 1 Occurrences starti ng 10/28/2024 until 11/27/2025 [place] [facility] [place] [facility] Immunizations Immunization Date Immunization Notes Care Provider Gerda hennessy 04-24-2024 influenza, seasonal, injectable, preservative free Lamar Nogueira MD Work Phone: [facility] 04-24-2024 influenza virus vacc ine, unspecified formulation Lucas Lutz Work Phone: [facility] 04-26-2023 influenza, injectabl e, quadrivalent, preservative free Lamar Nogueira MD Work Phone: [facility] 04-26-2023 influenza virus vacc ine, unspecified formulation Lucas Lutz Work Phone: [facility] 02-03-2022 influenza, injectabl e, quadrivalent, preservative free Lamar Nogueira MD Work Phone: [facility] Work Phone: 02-03-2022 influenza virus vacc ine, unspecified formulation Lucas Shaandesire Work Phone: [facility] 04-18-2021 influenza, injectabl e, quadrivalent, preservative free Dr. Margot Mai Work Phone: [facility] 04-18-2021 influenza, seasonal, injectable Dr. Margot Mai Work Phone: [facility] Work Phone: 05-09-2017 Influenza, injectabl e, Madin [place] Canine Kidney, preservative free, quadrivalent Lamar Nogueira MD Work Phone: [facility] Work Phone: 03-07-2016 influenza, injectabl e, quadrivalent, preservative free Lamar Nogueira MD Work Phone: [facility] Work Phone: 02-16-2016 influenza, seasonal, injectable Ag Card Work Phone: [facility] 03-18-2015 influenza, seasonal, injectable, preservative free Lamar Nogueira MD Work Phone: [facility] Work Phone: 01-12-2015 influenza, seasonal, injectable Ag Card Work Phone: [facility] Work Phone: 02-15-2012 influenza virus vacc ine, unspecified formulation Ag Card Work Phone: [facility] Work Phone: 02-03-2011 influenza virus vacc ine, unspecified formulation Ag Card Work Phone: [facility] Work Phone: 03-26-2009 pneumococcal polysaccharide vaccine, 23 valent Ag Card Work Phone: [facility] 09-18-2008 tetanus toxoid, redu nguyễn diphtheria toxoid, and acellular pertussis vaccine, adsorbed Ag Card Work Phone: [facility] Payers Date Payer Category Payer Self-pay [id number] 2023 Blue Cross Blue Shield [id number] 2023 Unknown ANTHEM BLUE ACCE SS PPO [id number] 2023-Present [phone] [address] [place] [address] PPO [id number] 2023 Unknown [id number] 2022 Private Health Insurance HUMANA HUMANA MEDICAID [facility] [id number] 2022-Present [address] [address] [place] [address] Medicaid [id number] 2021 Medicaid [id number] 2017 Unknown [employer] [place] [id number] 2017-Present [phone] [address] [place] [address] Indemnity [id number] 2010 Unknown [id number] Medicaid [id number] Unknown [id number] Unknown [id number] 2.16.840.1.067324.3.579.2. 462 Unknown [id number] 2.16.840.1.601204.3.579.2. 462 Unknown [id number] 2.16.840.1.513328.3.579.2. 462 Unknown [id number] 2.16.840.1.925205.3.579.2. 462 Unknown [id number] 2.16.840.1.227168.3.579.2. 462 Unknown [id number] 2.16.840.1.073718.3.579.2. 462 Unknown [id number] 2.16.840.1.967267.3.579.2. 462 Unknown [id number] 2.16.840.1.069873.3.579.2. 462 Unknown [id number] 2.16.840.1.273754.3.579.2. 462 Unknown [id number] 2.16.840.1.647941.3.579.2. 462 Unknown [id number] 2.16.840.1.257621.3.579.2. 462 Unknown [id number] 2.16.840.1.328469.3.579.2. 462 Unknown [id number] 2.16.840.1.520760.3.579.2. 462 Unknown [id number] 2.16.840.1.776793.3.579.2. 462 Unknown [id number] 2.16.840.1.952322.3.579.2. 462 Unknown [id number] 2.16.840.1.529947.3.579.2. 462 Unknown [id number] 2.16.840.1.533181.3.579.2. 462 Unknown [id number] 2.16.840.1.518059.3.579.2. 462 Unknown [id number] 2.16.840.1.507464.3.579.2. 462 Unknown [id number] 2.16.840.1.322087.3.579.2. 462 Unknown [id number] 2.16.840.1.169343.3.579.2. 462 Unknown [id number] 2.16.840.1.130098.3.579.2. 462 Unknown [id number] 2.16.840.1.844771.3.579.2. 462 Unknown [id number] 2.16.840.1.740417.3.579.2. 462 Social History Date Type Detail Facility Start: 08-14-2021 End: 07-20-2023 Tobacco smoking status [facility] Unknown if ever smoked [facility] Start: 1965 Sex Assigned At Male W [facility] Start: 11-28-2021 End: 07-25-2024 Tobacco smoking status CTIS Ex-smoker [facility] Start: 05-14-1974 End: 08-11-2021 History of tobacco use Cigarette Smoker [facility] Start: 11-28-2021 End: 03-24-2024 Cigarettes smoked current (pack per day) - Reported 1 [facility] Start: 11-28-2021 End: 07-25-2024 Tobacco use and exposure Smokeless tobacco non-user [facility] Start: 11-28-2021 End: 11-27-2024 Alcohol intake Current drinker of alcohol (finding) [facility] Start: 06-12-2008 History SDOH Alcohol Comment on occasion. [facility] Start: 03-24-2016 Tobacco Comment Trying to quit [facility] Start: 1965 Sex Assigned At Not on file [facility] Start: 05-14-1974 End: 08-11-2021 History of tobacco use Current smoker [facility] Work Phone: Start: 12-23-2021 End: 03-01-2022 Exposure to SARS-CoV-2 (event) Not sure [facility] Start: 12-19-2022 End: 03-24-2024 Tobacco use panel [facility] National Score (1-10 0), lower number is lower risk 99 [facility] Start: 07-23-2024 End: 08-27-2024 Sex Male (finding) [facility] Medical Equipment Procedure Code Equipment Code Equipment Original Text Equipment Identifier Dates Kdc-Qe-N-Kind Implant - [id number] Start: 05-31-2011 Comment on above: Description: ASNIS 3 .0MM CANNULATED SCREW 20MM Rba-Pl-H-Kind Implant - [id number] Start: 05-31-2011 Comment on above: Description: PLATE 2 HOLE LOCKING P-NOT Cvp-Ol-Y-Kind Implant - [id number] Start: 05-31-2011 Comment on above: Description: SCREW 2 .4MM X 16MM LOCKING Kax-Wi-K-Kind Implant - [id number] Start: 05-31-2011 Comment on above: Description: SCREW 2 .4MM X 22MM LOCKING Zzn-Wy-K-Kind Implant - [id number] Start: 05-31-2011 Comment on above: Description: BIOPRO SMALL STAPLE [id number] Start: 07-10-2016 Comment on above: UAD to test blood gl ucose twice daily Dx. Code: E11.65 USE WITH INSULIN ONC E DAILY USE TO CHECK GLUCOSE 3-4 TIMES DAILY USE 4 NEEDLES DAILY Goals Date Patient Goal Desired Activity /State Personal health goal Functional Status Date Assessment Result Facility 08-12-2024 Functional status Ambulates [facility] Work Phone: 03-02-2022 Are you deaf, or do you have serious difficulty hearing No 03/02/2022 10:36 AM Олег Pepper, JANETTE No [facility] 03-02-2022 Are you blind, or do you have serious difficulty seeing, even when wearing glasses No 03/02/2022 10:36 AM EDT Олег Sheppard RN No [facility] 03-02-2022 Do you have serious difficulty walking or climbing stairs No 03/02/2022 10:36 AM EDT Олег Sheppard RN No [facility] 03-02-2022 Do you have difficul ty dressing or bathing No 03/02/2022 10:36 AM EDT Олег Sheppard RN No [facility] 03-02-2022 Because of a physica l, mental, or emotional condition, do you have difficulty doing errands alone such as visiting a physician's office or shopping No 03/02/2022 10:36 AM EDT Олег Sheppard RN No [facility] 08-16-2021 Functional status Ambulates [facility] Work Phone: Mental Status Date Assessment Result Facility 08-12-2024 Cognitive function Voice/Name [facility] Work Phone: 05-24-2022 Cognitive function Voice/Name [facility] Work Phone: 03-02-2022 Because of a physica l, mental, or emotional condition, do you have serious difficulty concentrating, remembering, or making decisions No 03/02/2022 10:36 AM EDT Олег Sheppard RN No [facility] 08-16-2021 Cognitive function Voice/Name [facility] Work Phone: 08-14-2021 Cognitive function Level Of Cons ciousness Awake;Alert;Appropriate [facility] Work Phone: Clinical Notes 05-29-2011 to 11-27-2024 Lucas Lutz - 11/27/2024 9:01 AM Christiane Escobar LPN - 11/27/2024 9:00 AM Dari Erickson RN - 11/27/2024 8:09 AM EDTPatiChristiane Rasmussen LPN - 11/13/2024 9:42 AM EDT Note Date & Type Note Facility 11-27-2024 Note HNO ID: [id number] Author: LUCAS LUTZ, ? Service: ? Author Type: Physician Type: Progress Notes Filed: 11/27/2024 09:10 Note Text: Subjective Pedro Karimi is a 59-year-old male presenting for follow-up of a left second toe ulcer. Left Second Toe Ulcer: - Using Aquacel on the wound. - Gel toe spacer broke; requests a replacement. - Denies using a toe cap. - Denies pain during debridement. Skin: (+) ulcer left second toe Neurological: (+) decreased sensation left foot PAST MEDICAL HISTORY Diagnosis Date Anticoagulant long-term use indication: stroke prevention atrial fibrillation At risk for stroke [id number] = 2 (CHF, DM) Atypical atrial flutter (HCC) 06/16/2022 Benign neoplasm of colon 06/12/2008 Tubular adenoma. Chronic fatigue syndrome Chronic HFrEF (heart failure with reduced ejection fraction) (HCC) Crohn's disease (HCC) Depressive disorder, not elsewhere classified 08/03/2012 [...] cryoablation/PVAI for atrial fibrillation 03/01/2022; [facility] Dr. Nogueira Type II or unspecified type diabetes mellitus without mention of complication, uncontrolled 06/12/2008 Current Outpatient Medications Medication Sig Dispense Refill budesonide (ORTIKOS) 9 mg capsule, extended release 9 mg. albuterol HFA (PROVENTIL HFA, VENTOLIN HFA) 90 mcg/actuation inhaler Inhale 2 puffs as instructed every 4 hours as needed for wheezing/shortness of breath. ELIQUIS 5 mg tab(s) TAKE 1 TABLET BY MOUTH 2 TIMES A DAY. START 08/21/24 OZEMPIC 0.25 mg or 0.5 mg (2 mg/3 mL) pen INJECT 0.25 MG SUBCUTANEOUSLY ONCE WEEKLY FOR 4 WEEKS, THEN INJECT 0.5 MG WEEKLY FOR 2 WEEKS potassium chloride ER (KLOR-CON M10) 10 mEq tablet Take 1 tablet by mouth once daily. metoprolol tartrate, short acting, 75 mg tab Take 1 tablet by mouth every 12 hours. 180 tablet 1 dilTIAZem CD (CARDIZEM CD, CARTIA XT) 120 mg 24 hr capsule Take 120 mg by mouth once daily. insulin glargine (LANTUS SOLOSTAR, BASAGLAR KWIKPEN) 100 unit/mL (3 mL) Inject 50 Units subcutaneously. Once daily insulin lispro (HUMALOG KWIKPEN) 100 unit/mL INJECT 5 TO 15 UNITS SUBCUTANEOUSLY WITH MEALS furosemide (LASIX) 40 mg tablet Take 80 mg by mouth once daily. buPROPion SR (ZYBAN SR; WELLBUTRIN SR) 150 mg 12 hr tablet Take 1 tablet by mouth twice daily. 180 tablet 1 lisinopril (ZESTRIL) 2.5 mg tablet Take 1 tablet by mouth once daily. 90 tablet 1 metFORMIN (GLUCOPHAGE) 1,000 mg tablet Take 1 tablet by mouth twice daily with meals. 180 tablet 1 cephALEXin (KEFLEX) 500 mg capsule Take 1 capsule by mouth three times a day. 21 capsule 0 TRUEPLUS PEN NEEDLE 31 gauge x 1/4 ndle USE 4 NEEDLES DAILY FOR INJECTIONS FREESTYLE ANNEL 2 READER USE DIRECTED TO CHECK AT LEAST 4 TIMES DAILY FREESTYLE ANNEL 2 SENSOR kit USE 1 SENSOR EVERY 14 DAYS. pen needle, diabetic 31 gauge x 15/64 ndle USE 4 NEEDLES DAILY potassium chloride (K-TAB) 10 mEq tablet Take 10 mEq by mouth once daily. No current facility-administered medications for this visit. Family History Problem Relation Age of Onset Stroke Mother COPD Mother Colon Cancer Father Heart Sister he's not sure, something involving an implant ? pacemaker No Known Problems Sister Alcohol abuse Brother Alcohol abuse Brother No Known Problems Brother Heart Failure Maternal Grandmother Diabetes Paternal Grandmother Objective There were no vitals taken for this visit. - Cardiovascular: Dorsalis pedis and posterior tibial pulses palpable bilaterally; capillary refill time <5 seconds; skin temperature warm from proximal to distal bilaterally. - Skin: Callus formation along the medial aspect of the left hallux, left first metatarsal, and plantar aspect of left second metatarsal head; prior ulceration on the left medial second toe with a very small pinpoint opening (~1mm); no erythema, drainage, or signs of infection noted. - musculoskeletal: recurrent bunion deformity of left first ray. slightly cocked up 2nd toe. Imaging: (10/28) Toe X-ray: No evidence of bone destruction or acute osteomyelitis. Assessment AND Plan 1. Ulcer of toe of left foot, with fat layer exposed (HCC) (L97.522) - Ulcer on the left second toe showing significant improvement; currently a very small pinpoint opening (~1 mm) with no signs of infection, erythema, or drainage. - X-ray findings show no evidence of bone destruction or acute osteomyelitis. - Continue daily application of Aquacel and gauze to promote healing and reduce friction (more content not included)... [facility] 11-27-2024 History of Present illness Narrative Subjective Pedro Karimi is a 59-year-old male presenting for follow-up of a left second toe ulcer. Left Second Toe Ulcer: - Using Aquacel on the wound. - Gel toe spacer broke; requests a replacement. - Denies using a toe cap. - Denies pain during debridement. Skin: (+) ulcer left second toe Neurological: (+) decreased sensation left foot PAST MEDICAL HISTORY Diagnosis Date Anticoagulant long-term use indication: stroke prevention atrial fibrillation At risk for stroke [id number] = 2 (CHF, DM) Atypical atrial flutter (HCC) 06/16/2022 Benign neoplasm of colon 06/12/2008 Tubular adenoma. Chronic fatigue syndrome Chronic HFrEF (heart failure with reduced ejection fraction) (HCC) Crohn's disease (HCC) Depressive disorder, not elsewhere classified 08/03/2012 [...] cryoablation/PVAI for atrial fibrillation 03/01/2022; [facility] Dr. Nogueira Type II or unspecified type diabetes mellitus without mention of complication, uncontrolled 06/12/2008 Current Outpatient Medications Medication Sig Dispense Refill budesonide (ORTIKOS) 9 mg capsule, extended release 9 mg. albuterol HFA (PROVENTIL HFA, VENTOLIN HFA) 90 mcg/actuation inhaler Inhale 2 puffs as instructed every 4 hours as needed for wheezing/shortness of breath. ELIQUIS 5 mg tab(s) TAKE 1 TABLET BY MOUTH 2 TIMES A DAY. START 08/21/24 OZEMPIC 0.25 mg or 0.5 mg (2 mg/3 mL) pen INJECT 0.25 MG SUBCUTANEOUSLY ONCE WEEKLY FOR 4 WEEKS, THEN INJECT 0.5 MG WEEKLY FOR 2 WEEKS potassium chloride ER (KLOR-CON M10) 10 mEq tablet Take 1 tablet by mouth once daily. metoprolol tartrate, short acting, 75 mg tab Take 1 tablet by mouth every 12 hours. 180 tablet 1 dilTIAZem CD (CARDIZEM CD, CARTIA XT) 120 mg 24 hr capsule Take 120 mg by mouth once daily. insulin glargine (LANTUS SOLOSTAR, BASAGLAR KWIKPEN) 100 unit/mL (3 mL) Inject 50 Units subcutaneously. Once daily insulin lispro (HUMALOG KWIKPEN) 100 unit/mL INJECT 5 TO 15 UNITS SUBCUTANEOUSLY WITH MEALS furosemide (LASIX) 40 mg tablet Take 80 mg by mouth once daily. buPROPion SR (ZYBAN SR; WELLBUTRIN SR) 150 mg 12 hr tablet Take 1 tablet by mouth twice daily. 180 tablet 1 lisinopril (ZESTRIL) 2.5 mg tablet Take 1 tablet by mouth once daily. 90 tablet 1 metFORMIN (GLUCOPHAGE) 1,000 mg tablet Take 1 tablet by mouth twice daily with meals. 180 tablet 1 cephALEXin (KEFLEX) 500 mg capsule Take 1 capsule by mouth three times a day. 21 capsule 0 TRUEPLUS PEN NEEDLE 31 gauge x 1/4 ndle USE 4 NEEDLES DAILY FOR INJECTIONS FREESTYLE ANNEL 2 READER USE DIRECTED TO CHECK AT LEAST 4 TIMES DAILY FREESTYLE ANNEL 2 SENSOR kit USE 1 SENSOR EVERY 14 DAYS. pen needle, diabetic 31 gauge x 15/64 ndle USE 4 NEEDLES DAILY potassium chloride (K-TAB) 10 mEq tablet Take 10 mEq by mouth once daily. No current facility-administered medications for this visit. Family History Problem Relation Age of Onset Stroke Mother COPD Mother Colon Cancer Father Heart Sister he's not sure, something involving an implant ? pacemaker No Known Problems Sister Alcohol abuse Brother Alcohol abuse Brother No Known Problems Brother Heart Failure Maternal Grandmother Diabetes Paternal Grandmother Objective There were no vitals taken for this visit. - Cardiovascular: Dorsalis pedis and posterior tibial pulses palpable bilaterally; capillary refill time <5 seconds; skin temperature warm from proximal to distal bilaterally. - Skin: Callus formation along the medial aspect of the left hallux, left first metatarsal, and plantar aspect of left second metatarsal head; prior ulceration on the left medial second toe with a very small pinpoint opening (~1mm); no erythema, drainage, or signs of infection noted. - musculoskeletal: recurrent bunion deformity of left first ray. slightly cocked up 2nd toe. Imaging: (10/28) Toe X-ray: No evidence of bone destruction or acute osteomyelitis. Assessment & Plan 1. Ulcer of toe of left foot, with fat layer exposed (HCC) (L97.522) - Ulcer on the left second toe showing significant improvement; currently a very small pinpoint opening (~1 mm) with no signs of infection, erythema, or drainage. - X-ray findings show no evidence of bone destruction or acute osteomyelitis. - Continue daily application of Aquacel and gauze to promote healing and reduce friction. - wound was sharply debrided thru dermis today with tissue nippers. total debridement was 1 mm x 1 mm. no bleeding present. - Provided a new gel toe spacer to help alleviate pressure. - Scheduled follow-up in 3 weeks to monitor healing progress. 2. Acquired hallux valgus of left foot (M20.12) - Hallux valgus deformity contributing to ulcer formation due to rubbing. - Discussed surgical options including fusion of the toe joint and extensor tendon lengthening to correct deformity of 2nd toe and prevent recurrence of ulcers. - Patient advised that surgery would require 2-3 months of limited weight-bearing; discussed potential use of a knee scooter post-operatively. - Patient considering surgical correction during a slower work period in winter. 3. Hammer toe of left foot (M20.42) - Deformity noted on examination; contributing to pressure and ulcer formation on the second toe. - Discussed surgical correction options including tendon lengthening to alleviate deformity. - Patient advised on the importance of addressing both hallux valgus and hammer toe to prevent future ulcers. 4. Diabetic polyneuropathy associated with type 2 diabetes mellitus (HCC) (E11.42) - No specific discussion or changes in management during this visit. follow-up in 3 weeks Recording using [employer] software for draft documentation of the visit was discussed with the patient/authorized kiosk sales representative; all questions welcomed and answered. Patient/authorized kiosk sales representative agreed to proceed Lucas Lutz DPM Patient declined dressing. Patient was provided Aquacel for dressing changes. Christiane Roe LPN Patient presents with: Left Foot - Ulcer: Healing, per patient decreased redness. Patient reports improvement. documented in this encounter [facility] 11-27-2024 Note HNO ID: [id number] Author: CHRISTIANE ROE LPN Service: ? Author Type: LICENSED NURSE Type: Progress Notes Filed: 11/27/2024 09:10 Note Text: Patient declined dressing. Patient was provided Aquacel for dressing changes. Christiane Roe LPN [facility] 11-27-2024 Instructions Lucas Lutz - 11/27/2024 8:49 AM EDT - Clean the second-toe wound daily and apply a fresh Aquacel dressing secured with gauze. - Change the dressing once a day; keep it dry and gently pat it dry if it becomes wet. - Use the gel toe spacer provided to off-load pressure on the ulcer site. - Place the pressure-relief pads in your shoe as directed to further reduce rubbing on the second toe. - Avoid direct pressure or friction on the second toe when walking. - After the wound fully closes, you may stop the daily dressings and continue using the toe spacer for protection. - Return in three weeks for a wound check to confirm complete healing and discuss next steps. documented in this encounter [facility] 11-27-2024 Note HNO ID: [id number] Author: DARI SANCHEZ RN Service: ? Author Type: Registered Nurse Type: Progress Notes Filed: 11/27/2024 09:10 Note Text: Patient presents with: Left Foot - Ulcer: Healing, per patient decreased redness. Patient reports improvement. [facility] 11-13-2024 Note HNO ID: [id number] Author: CHRISTIANE ROE LPN Service: ? Author Type: LICENSED NURSE Type: Progress Notes Filed: 11/13/2024 09:43 Note Text: Per Dr. Lutz, Pedro wound was dressed with Aquacel, non adherent telfa, 2 in roll gauze.Instructed/educated in its application, wear, and care. All questions were answered, and patient was able to demonstrate competence with the necessary skills to utilize the above equipment. Christiane Roe LPN [facility] 11-13-2024 History of Present illness Narrative Per Dr. Lutz, Pedro wound was dressed with Aquacel, non adherent telfa, 2 in roll gauze.Instructed/educated in its application, wear, and care. All questions were answered, and patient was able to demonstrate competence with the necessary skills to utilize the above equipment. Christiane Roe LPN Subjective Pedro Karimi is a 59-year-old male with a history of diabetes mellitus, presenting for follow-up of a left second toe ulceration. Left Second Toe Ulceration: - Ulceration on the left second toe was initially noted on 10/28. - Ulceration measured 5 mm x 5 mm on 10/28; currently measures 2 mm x 2 mm. - Ulceration is reportedly improving with the use of Aquacel. - Bunion splint provided previously is not effectively reducing pressure on the toe. - Previous bunion surgery on the left foot; bunion has recurred, causing rubbing on the second toe. - Recent x-ray suggested a possible fracture in the middle phalanx of the second toe. - Recent wound culture showed skin mello; currently on Keflex. - Changed jobs recently; insurance status is currently being resolved. Neurological: (+) numbness of left second toe PAST MEDICAL HISTORY Diagnosis Date Anticoagulant long-term use indication: stroke prevention atrial fibrillation At risk for stroke [id number] = 2 (CHF, DM) Atypical atrial flutter (HCC) 06/16/2022 Benign neoplasm of colon 06/12/2008 Tubular adenoma. Chronic fatigue syndrome Chronic HFrEF (heart failure with reduced ejection fraction) (HCC) Crohn's disease (HCC) Depressive disorder, not elsewhere classified 08/03/2012 [...] cryoablation/PVAI for atrial fibrillation 03/01/2022; [facility] Dr. Nogueira Type II or unspecified type diabetes mellitus without mention of complication, uncontrolled 06/12/2008 Current Outpatient Medications Medication Sig Dispense Refill cephALEXin (KEFLEX) 500 mg capsule Take 1 capsule by mouth three times a day. 21 capsule 0 budesonide (ORTIKOS) 9 mg capsule, extended release 9 mg. albuterol HFA (PROVENTIL HFA, VENTOLIN HFA) 90 mcg/actuation inhaler Inhale 2 puffs as instructed every 4 hours as needed for wheezing/shortness of breath. ELIQUIS 5 mg tab(s) TAKE 1 TABLET BY MOUTH 2 TIMES A DAY. START 08/21/24 OZEMPIC 0.25 mg or 0.5 mg (2 mg/3 mL) pen INJECT 0.25 MG SUBCUTANEOUSLY ONCE WEEKLY FOR 4 WEEKS, THEN INJECT 0.5 MG WEEKLY FOR 2 WEEKS TRUEPLUS PEN NEEDLE 31 gauge x 05/17 ndle USE 4 NEEDLES DAILY FOR INJECTIONS potassium chloride ER (KLOR-CON M10) 10 mEq tablet Take 1 tablet by mouth once daily. metoprolol tartrate, short acting, 75 mg tab Take 1 tablet by mouth every 12 hours. 180 tablet 1 dilTIAZem CD (CARDIZEM CD, CARTIA XT) 120 mg 24 hr capsule Take 120 mg by mouth once daily. FREESTYLE ANNEL 2 READER USE DIRECTED TO CHECK AT LEAST 4 TIMES DAILY FREESTYLE ANNEL 2 SENSOR kit USE 1 SENSOR EVERY 14 DAYS. insulin glargine (LANTUS SOLOSTAR, BASAGLAR KWIKPEN) 100 unit/mL (3 mL) Inject 50 Units subcutaneously. Once daily insulin lispro (HUMALOG KWIKPEN) 100 unit/mL INJECT 5 TO 15 UNITS SUBCUTANEOUSLY WITH MEALS pen needle, diabetic 31 gauge x 15/64 ndle USE 4 NEEDLES DAILY furosemide (LASIX) 40 mg tablet Take 80 mg by mouth once daily. potassium chloride (K-TAB) 10 mEq tablet Take 10 mEq by mouth once daily. buPROPion SR (ZYBAN SR; WELLBUTRIN SR) 150 mg 12 hr tablet Take 1 tablet by mouth twice daily. 180 tablet 1 lisinopril (ZESTRIL) 2.5 mg tablet Take 1 tablet by mouth once daily. 90 tablet 1 metFORMIN (GLUCOPHAGE) 1,000 mg tablet Take 1 tablet by mouth twice daily with meals. 180 tablet 1 No current facility-administered medications for this visit. Family History Problem Relation Age of Onset Stroke Mother COPD Mother Colon Cancer Father Heart Sister he's not sure, something involving an implant ? pacemaker No Known Problems Sister Alcohol abuse Brother Alcohol abuse Brother No Known Problems Brother Heart Failure Maternal Grandmother Diabetes Paternal Grandmother Objective There were no vitals taken for this visit. - Cardiovascular: Dorsalis pedis and posterior tibial pulses palpable bilaterally; capillary refill time <5 seconds; skin temperature warm bilaterally. - Skin: No erythema noted bilaterally. - Musculoskeletal: - Left Foot: - Ulceration on the medial aspect of the second toe with a granular base and callie-wound hyperkeratosis; no drainage, no exposed tendon or bone, no signs of infection. ulceration was debrided and there is full thickness ulceration with granular base that measures 2 mm x 2 mm. no exposed tendon or bone. no local signs of infection. - Callus formation on the plantar aspect of the second metatarsal and medial aspect of the hallux. Labs: - Bacterial wound culture: Growth of skin mello, likely contaminant Imaging: - (10/28) Foot X-ray: Distal phalanx of the second digit slightly blunted and irregular, possible middle phalanx fracture with sclerosis and thick periosteal new bone, no periosteal reaction to support bone infection Assessment & Plan 1. Ulcer of toe of left foot, with fat layer exposed (HCC) (L97.522) - Ulceration on the medial aspect of the left second toe has reduced in size from 5mm x 5mm on October 28 to 2mm x 2mm today; no exposed tendon or bone, no signs of infection. - Bacterial wound culture showed skin mello, likely contamination; no clinical signs of infection observed. - X-ray from October 28 showed no periosteal reaction to support a bone infection; repeat x-ray ordered today to evaluate for any changes. - Wound debrided of non-viable tissue thru subcutaneous tissue with tissue nippers. total debridement was 2 mm x 2 mm. continue using Aquacel to absorb moisture and promote healing. - Discussed use of toe spacer to reduce pressure and prevent further rubbing. - Consideration of surgical options if wound does not heal, including toe amputation to prevent potential bone infection. 2. Acquired hallux valgus of left foot (M20.12) - Hallux valgus contributing to pressure and rubbing on the second toe, exacerbating ulceration. - Current bunion splint providing limited relief; discussed potential surgical correction to straighten the toe and fuse the joint. - Educated on the use of a bunion toe spacer to alleviate pressure. - Discussed risks and benefits of surgical intervention versus conservative management with spacers and splints. - patient not interested in surgery at this time. I informed him that this deformity does place him at risk of recurrent sores. 3. Hammer toe of left foot (M20.42) - Hammer toe deformity observed in the second toe, contributing to ulceration due to abnormal pressure and rubbing. - Discussed surgical options to correct the deformity and prevent recurrence of ulceration. - Educated on the use of toe caps post-healing to maintain alignment and reduce moisture accumulation. - Monitoring for signs of infection or worsening deformity; follow-up based on x-ray results and healing progress. Recording using [employer] software for draft documentation of the visit was discussed with the patient/authorized kiosk sales representative; all questions welcomed and answered. Patient/authorized kiosk sales representative agreed to proceed Lucas Lutz DPM AMB ROOMING INTAKE FLOWSHEET DATA Patient presents with: Right 2nd Toe - Established Patient, Follow Up, Diabetic Foot Ulcer, Numbness, Swelling Christiane Roe LPN documented in this encounter [facility] 11-13-2024 Note HNO ID: [id number] Author: LUCAS LUTZ, ? Service: ? Author Type: Physician Type: Progress Notes Filed: 11/13/2024 09:09 Note Text: Subjective Pedro Karimi is a 59-year-old male with a history of diabetes mellitus, presenting for follow-up of a left second toe ulceration. Left Second Toe Ulceration: - Ulceration on the left second toe was initially noted on 10/28. - Ulceration measured 5 mm x 5 mm on 10/28; currently measures 2 mm x 2 mm. - Ulceration is reportedly improving with the use of Aquacel. - Bunion splint provided previously is not effectively reducing pressure on the toe. - Previous bunion surgery on the left foot; bunion has recurred, causing rubbing on the second toe. - Recent x-ray suggested a possible fracture in the middle phalanx of the second toe. - Recent wound culture showed skin mello; currently on Keflex. - Changed jobs recently; insurance status is currently being resolved. Neurological: (+) numbness of left second toe PAST MEDICAL HISTORY Diagnosis Date Anticoagulant long-term use indication: stroke prevention atrial fibrillation At risk for stroke [id number] = 2 (CHF, DM) Atypical atrial flutter (HCC) 06/16/2022 Benign neoplasm of colon 06/12/2008 Tubular adenoma. Chronic fatigue syndrome Chronic HFrEF (heart failure with reduced ejection fraction) (HCC) Crohn's disease (HCC) Depressive disorder, not elsewhere classified 08/03/2012 [...] cryoablation/PVAI for atrial fibrillation 03/01/2022; [facility] Dr. Nogueira Type II or unspecified type diabetes mellitus without mention of complication, uncontrolled 06/12/2008 Current Outpatient Medications Medication Sig Dispense Refill cephALEXin (KEFLEX) 500 mg capsule Take 1 capsule by mouth three times a day. 21 capsule 0 budesonide (ORTIKOS) 9 mg capsule, extended release 9 mg. albuterol HFA (PROVENTIL HFA, VENTOLIN HFA) 90 mcg/actuation inhaler Inhale 2 puffs as instructed every 4 hours as needed for wheezing/shortness of breath. ELIQUIS 5 mg tab(s) TAKE 1 TABLET BY MOUTH 2 TIMES A DAY. START 08/21/24 OZEMPIC 0.25 mg or 0.5 mg (2 mg/3 mL) pen INJECT 0.25 MG SUBCUTANEOUSLY ONCE WEEKLY FOR 4 WEEKS, THEN INJECT 0.5 MG WEEKLY FOR 2 WEEKS TRUEPLUS PEN NEEDLE 31 gauge x 1/4 ndle USE 4 NEEDLES DAILY FOR INJECTIONS potassium chloride ER (KLOR-CON M10) 10 mEq tablet Take 1 tablet by mouth once daily. metoprolol tartrate, short acting, 75 mg tab Take 1 tablet by mouth every 12 hours. 180 tablet 1 dilTIAZem CD (CARDIZEM CD, CARTIA XT) 120 mg 24 hr capsule Take 120 mg by mouth once daily. FREESTYLE ANNEL 2 READER USE DIRECTED TO CHECK AT LEAST 4 TIMES DAILY FREESTYLE ANNEL 2 SENSOR kit USE 1 SENSOR EVERY 14 DAYS. insulin glargine (LANTUS SOLOSTAR, BASAGLAR KWIKPEN) 100 unit/mL (3 mL) Inject 50 Units subcutaneously. Once daily insulin lispro (HUMALOG KWIKPEN) 100 unit/mL INJECT 5 TO 15 UNITS SUBCUTANEOUSLY WITH MEALS pen needle, diabetic 31 gauge x 15/64 ndle USE 4 NEEDLES DAILY furosemide (LASIX) 40 mg tablet Take 80 mg by mouth once daily. potassium chloride (K-TAB) 10 mEq tablet Take 10 mEq by mouth once daily. buPROPion SR (ZYBAN SR; WELLBUTRIN SR) 150 mg 12 hr tablet Take 1 tablet by mouth twice daily. 180 tablet 1 lisinopril (ZESTRIL) 2.5 mg tablet Take 1 tablet by mouth once daily. 90 tablet 1 metFORMIN (GLUCOPHAGE) 1,000 mg tablet Take 1 tablet by mouth twice daily with meals. 180 tablet 1 No current facility-administered medications for this visit. Family History Problem Relation Age of Onset Stroke Mother COPD Mother Colon Cancer Father Heart Sister he's not sure, something involving an implant ? pacemaker No Known Problems Sister Alcohol abuse Brother Alcohol abuse Brother No Known Problems Brother Heart Failure Maternal Grandmother Diabetes Paternal Grandmother Objective There were no vitals taken for this visit. - Cardiovascular: Dorsalis pedis and posterior tibial pulses palpable bilaterally; capillary refill time <5 seconds; skin temperature warm bilaterally. - Skin: No erythema noted bilaterally. - Musculoskeletal: - Left Foot: - Ulceration on the medial aspect of the second toe with a granular base and callie-wound hyperkeratosis; no drainage, no exposed tendon or bone, no signs of infection. ulceration was debrided and there is full thickness ulceration with granular base that measures 2 mm x 2 mm. no exposed tendon or bone. no local signs of infection. - Callus formation on (more content not included)... [facility] 11-13-2024 History of Present illness Narrative Radiology Service Progress Note PATIENT NAME: Pedro Karimi DATE OF SERVICE: November 13, 2024 TIME: 11:52 AM PATIENT IDENTITY VERIFICATION COMPLETED USING TWO (2) IDENTIFIERS: Name and Date of confirmed by patient verbally. FALL SCREENING: Has the patient had 2 falls in the last year or 1 fall with injury or currently using an Ambulatory Assistive Device (Walker, Cane, Wheelchair, Crutches, etc.)? No PATIENT GENDER DATA: Assigned male at PATIENT RELEVANT IMPLANT DATA REVIEWED: Not Applicable PATIENT PRESENTS WITH AN IMPLANTABLE OR ATTACHED WATER POLLUTION CONTROL INSPECTOR: Yes [facility] RADIOLOGY DEPARTMENT: General X-ray: Exam(s) Completed: Lower Extremity X-Ray(s): Toes, Left, 2ND TOE PERIPHERAL IV DATA: Not applicable SIGNED BY: RT Richard(Jacki) November 13, 2024 11:52 AM documented in this encounter [facility] 11-13-2024 Note HNO ID: [id number] Author: YINA STRONG RT(Jacki) Service: ? Author Type: Technologist Type: Progress Notes Filed: 11/13/2024 11:53 Note Text: Radiology Service Progress Note PATIENT NAME: Pedro Karimi DATE OF SERVICE: November 13, 2024 TIME: 11:52 AM PATIENT IDENTITY VERIFICATION COMPLETED USING TWO (2) IDENTIFIERS: Name and Date of confirmed by patient verbally. FALL SCREENING: Has the patient had 2 falls in the last year or 1 fall with injury or currently using an Ambulatory Assistive Device (Walker, Cane, Wheelchair, Crutches, etc.)? No PATIENT GENDER DATA: Assigned male at PATIENT RELEVANT IMPLANT DATA REVIEWED: Not Applicable PATIENT PRESENTS WITH AN IMPLANTABLE OR ATTACHED WATER POLLUTION CONTROL INSPECTOR: Yes [facility] RADIOLOGY DEPARTMENT: General X-ray: Exam(s) Completed: Lower Extremity X-Ray(s): Toes, Left, 2ND TOE PERIPHERAL IV DATA: Not applicable SIGNED BY: Yina Strong RT(R) November 13, 2024 11:52 AM [facility] 11-13-2024 Instructions Lucas Lutz - 11/13/2024 8:34 AM EDT - Keep using the Aquacel dressing on your left second toe; cover it with a clean gauze to hold it in place and change the dressing per instructions. - Wear the bunion splint placed between your big toe and second toe to reduce pressure on the wound. - Use the toe-spacer device between your big toe and second toe to maintain separation; remove it if you notice excessive moisture. - Obtain a repeat X-ray of your left second toe today to compare with the October 28 images and evaluate for any bone infection. - Monitor the wound s healing--if you see increased redness, swelling, drainage, or pain, contact the clinic promptly. documented in this encounter [facility] 11-13-2024 Note HNO ID: [id number] Author: CHRISTIANE ROE LPN Service: ? Author Type: LICENSED NURSE Type: Progress Notes Filed: 11/13/2024 09:09 Note Text: AMB ROOMING INTAKE FLOWSHEET DATA Patient presents with: Right 2nd Toe - Established Patient, Follow Up, Diabetic Foot Ulcer, Numbness, Swelling Christiane Roe LPN [facility] 10-28-2024 Note HNO ID: [id number] Author: CHRISTIANE ROE LPN Service: ? Author Type: LICENSED NURSE Type: Progress Notes Filed: 11/01/2024 07:43 Note Text: Per Pedro Soria wound to left 2nd toe was dressed with Aquacel, non adherent and roll gauze. Patient was also provided bunion splint and instructed/educated in its application, wear, and care. All questions were answered, and patient was able to demonstrate competence with the necessary skills to utilize the above equipment. Christiane Roe LPN [facility] 10-28-2024 History of Present illness Narrative Per Dr. Lutz Pedro wound to left 2nd toe was dressed with Aquacel, non adherent and roll gauze. Patient was also provided bunion splint and instructed/educated in its application, wear, and care. All questions were answered, and patient was able to demonstrate competence with the necessary skills to utilize the above equipment. Christiane Roe LPN Last saw pcp: not in chart Subjective: Patient presents to clinic c/o painful toenails. They state that the nails are especially painful with shoe gear and pressure. Patient admits to being diabetic. Has no other complaints. No other pedal complaints at this time. Patient states no change in medications or medical history since last visit. Objective: Patient presents to clinic ambulating in [facility] Vasc: DP and PT pulses are palpable bilateral. CFT is less than 5 seconds bilateral. Skin temperature is warm to cool proximal to distal bilateral. There is moderate edema or varicosities noted. Edema is noted in left 2nd toe Neuro: Protective sensation is absent to the foot and toes when tested with the 5.07 SWM bilateral. Vibratory sensation is absent at the hallux IPJ bilateral. The hallux is downgoing bilateral. Derm: Nails 1-5 b/l are painful, discolored-yellow, thick, crumbly, dystrophic and with subungal debris. Skin is of normal turgor, texture and hair growth is decreased bilateral. Ulceration #1 Location: left 2nd toe medial aspect Measurement: 5 mm x 5 mm Base: granular tissue with periwound hyperkeratosis Mild serous drainage. No exposed tendon or bone. Ortho: Muscle strength is 5/5 for all pedal groups tested. Ankle joint DF is decreased with the knee extended with no pain or crepitus noted. 1st MPJ ROM is decreased bilateral. Swelling is noted of left 2nd toe. Hallux valgus deformity (recurrent) of left lower extremity. Assessment: (B35.1) Onychomycosis (primary encounter diagnosis) (M79.675) Pain in toe of left foot (M79.674) Pain in toe of right foot (E11.42) Diabetic polyneuropathy associated with type 2 diabetes mellitus (HCC) (M20.12) Acquired hallux valgus of left foot (L97.502) Skin ulcer of toe with fat layer exposed, unspecified laterality (HCC) Plan: Patient was seen and evaluated. Nails 1-5 bilateral were debrided in length and thickness. Patient was instructed on the continued importance of diabetic foot care along with proper diet and keeping their blood sugar under control to prevent complications. I stressed the importance of avoiding barefoot walking, wearing good shoes and inspection of feet. I discussed the new ulceration of left 2nd toe. There is ulceration of left 2nd toe with serous drainage. I am going to culture the 2nd toe and place him on antibiotic. I debrided the ulceration today with tissue nippers. Debridement was performed thru subcutaneous tissu with tissue nippers. Total debridement was 5 mm x 5 mm x 2 mm. Will treat with aquacel and guaze to the 2nd toe. Will provide him with bunion splint to help eliminate stress to the 2nd toe. Will obtain xrays. I discussed this ulceration as the result of recurrent bunion. Discussed options for the bunion not limited to correction of bunion vs 2nd toe amputation. I will review xrays. Will discuss options in 1 week after reviewing xrays and culture Lucas Lutz DPM AMB ROOMING INTAKE FLOWSHEET DATA Patient presents with: Left Foot - Established Patient, Follow Up, Diabetic Foot Care Right Foot - Established Patient, Follow Up, Numbness, Diabetic Foot Care Right 3rd Toe - Wound Check, Numbness, Established Patient Patient states last week he ripped off right 3rd toenail 1 week ago. Christiane Roe LPN documented in this encounter [facility] 10-28-2024 History of Present illness Narrative Radiology Service Progress Note PATIENT NAME: Pedro Karimi DATE OF SERVICE: October 28, 2024 TIME: 4:48 PM PATIENT IDENTITY VERIFICATION COMPLETED USING TWO (2) IDENTIFIERS: Name and Date of confirmed by patient verbally. FALL SCREENING: Has the patient had 2 falls in the last year or 1 fall with injury or currently using an Ambulatory Assistive Device (Walker, Cane, Wheelchair, Crutches, etc.)? No PATIENT GENDER DATA: Assigned male at PATIENT RELEVANT IMPLANT DATA REVIEWED: Not Applicable PATIENT PRESENTS WITH AN IMPLANTABLE OR ATTACHED WATER POLLUTION CONTROL INSPECTOR: No RADIOLOGY DEPARTMENT: General X-ray: Exam(s) Completed: Lower Extremity X-Ray(s): Foot, Left and Wt. Bearing and Toes, Left PERIPHERAL IV DATA: Not applicable SIGNED BY: RT Fatimah(R) October 28, 2024 5:01 PM documented in this encounter [facility] 10-28-2024 Note HNO ID: [id number] Author: IVÁN PETTIT RT(Jacki) Service: Radiology Author Type: Technologist Type: Progress Notes Filed: 10/28/2024 17:02 Note Text: Radiology Service Progress Note PATIENT NAME: Pedro Karimi DATE OF SERVICE: October 28, 2024 TIME: 4:48 PM PATIENT IDENTITY VERIFICATION COMPLETED USING TWO (2) IDENTIFIERS: Name and Date of confirmed by patient verbally. FALL SCREENING: Has the patient had 2 falls in the last year or 1 fall with injury or currently using an Ambulatory Assistive Device (Walker, Cane, Wheelchair, Crutches, etc.)? No PATIENT GENDER DATA: Assigned male at PATIENT RELEVANT IMPLANT DATA REVIEWED: Not Applicable PATIENT PRESENTS WITH AN IMPLANTABLE OR ATTACHED WATER POLLUTION CONTROL INSPECTOR: No RADIOLOGY DEPARTMENT: General X-ray: Exam(s) Completed: Lower Extremity X-Ray(s): Foot, Left and Wt. Bearing and Toes, Left PERIPHERAL IV DATA: Not applicable SIGNED BY: RT Fatimah(R) October 28, 2024 5:01 PM [facility] 10-28-2024 Lucas Alcantar 10/28/2024 4:30 PM EDT You have a wound of left 2nd toe, inside aspect Cleanse this wound daily with soap and water. Apply aquacel to the wound. Secure with guaze wrap Use a bunion splint to help straighten the toe. This will not straighten the toe ferry terminal supervisor, only while wearing, it will help to reduce pressure on the 2nd toe Obtain xrays today of foot and toe. If the toe xray confirms bone infection, then will need to discuss options. Antibiotics vs amputation. You have a bunion of left foot that may likely continue to contribute to rubbing. Once this wound heals, will need to either use splint, or consider surgery on the bunion or consider toe amputation of the 2nd toe. Wear a wider shoe to avoid rubbing. Could consider surgical shoe to help reduce pressure. Diabetes Foot Care Instructions When you have [...] (or decreased sensation in your feet) a grading machine operator should always cut your toenails. Be Careful [...] Go to your health care provider or grading machine operator to treat these conditions. documented in this encounter [facility] 10-28-2024 Note HNO ID: [id number] Author: LUCAS LUTZ, ? Service: ? Author Type: Physician Type: Progress Notes Filed: 11/01/2024 07:43 Note Text: Last saw pcp: not in chart Subjective: Patient presents to clinic c/o painful toenails. They state that the nails are especially painful with shoe gear and pressure. Patient admits to being diabetic. Has no other complaints. No other pedal complaints at this time. Patient states no change in medications or medical history since last visit. Objective: Patient presents to clinic ambulating in [facility] Vasc: DP and PT pulses are palpable bilateral. CFT is less than 5 seconds bilateral. Skin temperature is warm to cool proximal to distal bilateral. There is moderate edema or varicosities noted. Edema is noted in left 2nd toe Neuro: Protective sensation is absent to the foot and toes when tested with the 5.07 SWM bilateral. Vibratory sensation is absent at the hallux IPJ bilateral. The hallux is downgoing bilateral. Derm: Nails 1-5 b/l are painful, discolored-yellow, thick, crumbly, dystrophic and with subungal debris. Skin is of normal turgor, texture and hair growth is decreased bilateral. Ulceration #1 Location: left 2nd toe medial aspect Measurement: 5 mm x 5 mm Base: granular tissue with periwound hyperkeratosis Mild serous drainage. No exposed tendon or bone. Ortho: Muscle strength is 5/5 for all pedal groups tested. Ankle joint DF is decreased with the knee extended with no pain or crepitus noted. 1st MPJ ROM is decreased bilateral. Swelling is noted of left 2nd toe. Hallux valgus deformity (recurrent) of left lower extremity. Assessment: (B35.1) Onychomycosis (primary encounter diagnosis) (M79.675) Pain in toe of left foot (M79.674) Pain in toe of right foot (E11.42) Diabetic polyneuropathy associated with type 2 diabetes mellitus (HCC) (M20.12) Acquired hallux valgus of left foot (L97.502) Skin ulcer of toe with fat layer exposed, unspecified laterality (HCC) Plan: Patient was seen and evaluated. Nails 1-5 bilateral were debrided in length and thickness. Patient was instructed on the continued importance of diabetic foot care along with proper diet and keeping their blood sugar under control to prevent complications. I stressed the importance of avoiding barefoot walking, wearing good shoes and inspection of feet. I discussed the new ulceration of left 2nd toe. There is ulceration of left 2nd toe with serous drainage. I am going to culture the 2nd toe and place him on antibiotic. I debrided the ulceration today with tissue nippers. Debridement was performed thru subcutaneous tissu with tissue nippers. Total debridement was 5 mm x 5 mm x 2 mm. Will treat with aquacel and guaze to the 2nd toe. Will provide him with bunion splint to help eliminate stress to the 2nd toe. Will obtain xrays. I discussed this ulceration as the result of recurrent bunion. Discussed options for the bunion not limited to correction of bunion vs 2nd toe amputation. I will review xrays. Will discuss options in 1 week after reviewing xrays and culture Lucas Lutz DPM [facility] 10-28-2024 Note HNO ID: [id number] Author: CHRISTIANE ROE LPN Service: ? Author Type: LICENSED NURSE Type: Progress Notes Filed: 11/01/2024 07:43 Note Text: AMB ROOMING INTAKE FLOWSHEET DATA Patient presents with: Left Foot - Established Patient, Follow Up, Diabetic Foot Care Right Foot - Established Patient, Follow Up, Numbness, Diabetic Foot Care Right 3rd Toe - Wound Check, Numbness, Established Patient Patient states last week he ripped off right 3rd toenail 1 week ago. Christiane Roe LPN [facility] 10-13-2024 Instructions Lamar Nogueira MD - 10/13/2024 8:26 AM EDT We discussed your atrial fibrillation and heart health: - Your EKG today shows normal rhythm, and you are currently in sinus rhythm. Continue monitoring your heart rhythm monthly using your CardioMobile device. - You are currently taking the following medications for your heart: - Diltiazem (Cardizem) once daily. - Eliquis 5 mg twice daily to prevent stroke. You reported no bleeding issues with this medication. - Metoprolol succinate 75 mg twice daily. - You reported no chest pain, shortness of breath, or other symptoms of atrial fibrillation. Please let us know if these symptoms develop. - We will continue to monitor your condition with follow-up appointments every six months. Your next visit is scheduled for six months from now. We discussed your recent diagnosis of Crohn s disease: - You were hospitalized in late July for severe diarrhea and bleeding, which led to this diagnosis. A colonoscopy and upper GI endoscopy were performed during your hospital stay. - You are currently taking Budesonide (Ortikos) 9 mg daily for Crohn s disease. You mentioned that you have run out of this medication and are waiting for a refill. Please follow up with your prescribing provider to ensure you have an adequate supply. - You are scheduled for a follow-up upper GI endoscopy on either the or of this month to assess healing. Please confirm the date with your nutritional health coach. - You reported no ongoing gastrointestinal symptoms such as nausea, vomiting, diarrhea, or bleeding. Please notify your nutritional health coach if these symptoms return. We discussed your overall health and lifestyle: - You have successfully lost 46 pounds over the past year, which is a significant achievement for your health. Continue maintaining a healthy lifestyle. - You recently missed two weeks of work due to your Crohn s disease but are now feeling better and starting a new job soon. Congratulations on this new opportunity. Follow-Up: - Your next cardiology follow-up is scheduled for six months from now. Please contact our office if you experience any new or worsening symptoms before then. - Continue to follow up with your nutritional health coach for management of your Crohn s disease and upcoming procedures. Please reach out if you have any questions or concerns about your care plan. documented in this encounter [facility] 10-13-2024 History of Present illness Narrative PRIMARY CARE PHYSICIAN: Margot Mai [address] [place] [address] Patient Care Team: Margot Mai MD as PCP - General (Family Medicine) Lazaro Marcus MD as Specialty Basin Cleaner (Cardiology) Lamar Nogueira MD as Specialty Basin Cleaner (Cardiology) Buster Harvey MD as Specialty Basin Cleaner (Cardiology) CHIEF COMPLAINT: Follow up for arrhythmia HISTORY OF PRESENT ILLNESS: Mr. Karimi is a 59 year old male who presents today for a cardiovascular medicine follow-up visit. Recording using ambient AI software for draft documentation of the visit was discussed with the patient/authorized kiosk sales representative; all questions welcomed and answered. Patient/authorized kiosk sales representative agreed to proceed History from previous notes, edited as needed and/or generated by dictation with use of AI.: Patient Overview: Mr. Irene has a history of atrial fibrillation diagnosed in August 2021. He had been experiencing exertional shortness of breath starting in late 2020, which progressively worsened and became severe by August 2021. Initially, he thought this was due to a pulmonary condition related to his 46-year smoking history, though he quit in July 2021. However, in August 2021, he was found to have severe dilated cardiomyopathy with heart failure and an LVEF of 15%, at which time atrial fibrillation was diagnosed. He was treated with amiodarone and underwent electrical cardioversion in September and October 2021, both of which failed to restore sinus rhythm. Amiodarone was discontinued. A heart catheterization in November 2021 revealed no significant coronary artery disease. He has sleep apnea and is compliant with CPAP therapy. Antiarrhythmic drug options were limited due to cardiomyopathy and heart failure. He underwent atrial fibrillation catheter ablation with cryoballoon ablation in February 2022. Unfortunately, he developed a recurrence of atrial fibrillation after the catheter ablation and underwent electrical cardioversion to restore sinus rhythm in September 2022. Diltiazem dosage was reduced to 120 mg daily due to lower extremity swelling. During an office follow-up with Keny Alexander APN, on March 24, 2024, he reported losing about 46 pounds in a year. However, an EKG revealed recurrence of atrial fibrillation or atrial flutter with a ventricular rate of 125 bpm. He admitted to being off carvedilol for a couple of months as he had run out of the medication. Carvedilol was discontinued, and he was prescribed metoprolol succinate. He underwent electrical cardioversion to restore sinus rhythm from atrial flutter on October 05, 2024. Diagnostic Results: - EKG (March 24, 2024): Recurrence of atrial fibrillation or atrial flutter with ventricular rate 125 bpm. - Echocardiogram (January 02, 2023): - Normal left ventricular size and systolic function, LVEF 55% - Moderate concentric LVH with an intraventricular septum of 1.3 cm - Normal left atrial and right atrial dimensions - No significant valvular abnormalities Interim History Dr. Nogueira 10/13/2024: The patient is a 59-year-old male with a history of atrial fibrillation, dilated cardiomyopathy, and heart failure, presenting for follow-up. The patient was diagnosed with atrial fibrillation in August 2021, following severe exertional dyspnea that began in late 2020. Initially attributed to a pulmonary condition due to a 46-year smoking history, he quit smoking in July 2021. In August 2021, he was diagnosed with severe dilated cardiomyopathy and heart failure with an LVEF of 15%. He was treated with amiodarone and underwent electrical cardioversion in September and October 2021, both of which failed to restore sinus rhythm. A heart catheterization in November 2021 revealed no significant CAD. Due to limited antiarrhythmic options, he underwent cryoballoon ablation in February 2022. Despite this, he experienced recurrent atrial fibrillation and underwent another electrical cardioversion in September 2022. An echocardiogram on 01/02/2023 showed normal LV size and systolic function with an LVEF of 55%, moderate concentric LVH, and no significant valvular abnormalities. In March 2024, he was found to have recurrent atrial fibrillation or atrial flutter with a ventricular rate of 125 bpm. He had been off carvedilol for a couple of months. Carvedilol was discontinued, and he was prescribed metoprolol succinate. He underwent electrical cardioversion on October 05, 2024, to restore sinus rhythm from atrial flutter. He denies awareness of any recurrent atrial fibrillation and monitors his heart rhythm monthly using a KardiaMobile device. He denies chest pain or dyspnea. He was recently diagnosed with Crohn's disease after experiencing four days of diarrhea and hematochezia, leading to a week-long hospitalization at the end of July. A colonoscopy and upper GI endoscopy revealed significant inflammation. He denies current GI symptoms such as nausea, vomiting, or diarrhea and did not require a blood transfusion. He missed two weeks of work due to his condition. He reports a weight loss of 46 pounds over the past year. He is compliant with CPAP therapy for sleep apnea. He denies any recent surgeries. He currently takes diltiazem 120 mg once daily, Eliquis 5 mg BID, metoprolol 75 mg BID, Ozempic once weekly, and budesonide 9 mg capsules. He denies any bleeding problems with Eliquis. I have confirmed and edited as necessary, the PFSH and ROS obtained by others. PAST MEDICAL HISTORY Diagnosis Date Anticoagulant long-term use indication: stroke prevention atrial fibrillation At risk for stroke [id number] = 2 (CHF, DM) Atypical atrial flutter (HCC) 06/16/2022 Benign neoplasm of colon 06/12/2008 Tubular adenoma. Chronic fatigue syndrome Chronic HFrEF (heart failure with reduced ejection fraction) (HCC) Crohn's disease (HCC) Depressive disorder, not elsewhere classified 08/03/2012 [...] catheter cryoablation/PVAI for atrial fibrillation 03/01/2022; JELENA Nogueira Type II or unspecified type diabetes mellitus without mention of complication, uncontrolled 06/12/2008 PAST SURGICAL HISTORY Procedure Laterality Date AFIB ABLATION/PULM VEIN ISOLATION 03/01/2022 balloon catheter cryoablation/PVAI for atrial fibrillation; JELENA Nogueira CARDIOVERSION, ELECTIVE, ELECTRICAL 10/27/2021 unsuccessful x2 [facility] CARDIOVERSION, ELECTIVE, ELECTRICAL 09/30/2021 [facility] - Unsuccessful CARDIOVERSION, ELECTIVE, ELECTRICAL 09/27/2022 CARDIOVERSION, ELECTIVE, ELECTRICAL 07/08/2024 successful jewish of sinus rhythm from atrial flutter; JELENA Nogueira COLONOSCOPY FLX DX W/COLLJ SPEC WHEN PFRMD 2000, 2004 Colonoscopy COLONOSCOPY FLX DX W/COLLJ SPEC WHEN PFRMD 10/14/2010 Colonoscopy/repeat in 10/2015 COLONOSCOPY FLX DX W/COLLJ SPEC WHEN PFRMD 10/29/2015 COLONOSCOPY SCREENING 08/2024 CORRECT BUNION,SIMPLE 05/14/[address] Velasquez right CORRECT BUNION,SIMPLE 05/31/2011 Bunion, Left ECHO 08/15/2021 EF 15%- [facility] ECHOCARDIOGRAM 01/20/2022 [facility]; see scanned documents EGD W/O [facility] SPEC VARICIES INJ 08/2024 LEFT HEART CATH,PERCUTANEOUS 11/25/2021 no significant CAD; LVEF 20%; [facility] REM LESIO TRUNK,ARM,LEG 1.1 -2.0CM 08/08/2008 Exc. ruptured emilie cyst right upper chest REPAIR INCISIONAL HERNIA,REDUCIBLE RPR UMBILICAL HRNA 5 YRS/> REDUCIBLE 05/14/2000 Hernia repair, umbilical >5yr SOCIAL HISTORY Social History Tobacco Use Smoking status: Former Current packs/day: 0.00 Average packs/day: 1 pack/day for 47.2 years (47.2 ttl pk-yrs) Types: Cigarettes Start date: 1974 Quit date: 08/11/2021 Years since quittin.1 Smokeless tobacco: Never Vaping Use Vaping status: Never Used Substance Use Topics Alcohol use: Yes Comment: [...] Rash Had reaction as a baby MEDICATIONS: budesonide (ORTIKOS) 9 mg capsule, extended release 9 mg. albuterol HFA (PROVENTIL HFA, VENTOLIN HFA) 90 mcg/actuation inhaler Inhale 2 puffs as instructed every 4 hours as needed for wheezing/shortness of breath. ELIQUIS 5 mg tab(s) TAKE 1 TABLET BY MOUTH 2 TIMES A DAY. START 08/21/24 OZEMPIC 0.25 mg or 0.5 mg (2 mg/3 mL) pen INJECT 0.25 MG SUBCUTANEOUSLY ONCE WEEKLY FOR 4 WEEKS, THEN INJECT 0.5 MG WEEKLY FOR 2 WEEKS TRUEPLUS PEN NEEDLE 31 gauge x 1/4 ndle USE 4 NEEDLES DAILY FOR INJECTIONS potassium chloride ER (KLOR-CON M10) 10 mEq tablet Take 1 tablet by mouth once daily. metoprolol tartrate, short acting, 75 mg tab Take 1 tablet by mouth every 12 hours. dilTIAZem CD (CARDIZEM CD, CARTIA XT) 120 mg 24 hr capsule Take 120 mg by mouth once daily. FREESTYLE ANNEL 2 READER USE DIRECTED TO CHECK AT LEAST 4 TIMES DAILY FREESTYLE ANNEL 2 SENSOR kit USE 1 SENSOR EVERY 14 DAYS. insulin glargine (LANTUS SOLOSTAR, BASAGLAR KWIKPEN) 100 unit/mL (3 mL) Inject 50 Units subcutaneously. Once daily insulin lispro (HUMALOG KWIKPEN) 100 unit/mL INJECT 5 TO 15 UNITS SUBCUTANEOUSLY WITH MEALS pen needle, diabetic 31 gauge x 15/64 ndle USE 4 NEEDLES DAILY furosemide (LASIX) 40 mg tablet Take 80 mg by mouth once daily. potassium chloride (K-TAB) 10 mEq tablet Take 10 mEq by mouth once daily. buPROPion SR (ZYBAN SR; WELLBUTRIN SR) 150 mg 12 hr tablet Take 1 tablet by mouth twice daily. lisinopril (ZESTRIL) 2.5 mg tablet Take 1 tablet by mouth once daily. metFORMIN (GLUCOPHAGE) 1,000 mg tablet Take 1 tablet by mouth twice daily with meals. Review of Systems Constitutional: Negative for chills and fever. Respiratory: Negative for cough, hemoptysis, sputum production and shortness of breath. Cardiovascular: Negative for chest pain, palpitations, orthopnea and PND. Gastrointestinal: Negative for abdominal pain, blood in stool (not now but did have rectal bleeding in July/August 2024 and was diagnosed with Crohn's disease), melena, nausea and vomiting. Genitourinary: Negative for dysuria, flank pain and hematuria. Musculoskeletal: Negative for falls. Skin: Negative for rash. Neurological: Negative for focal weakness, seizures and loss of consciousness. PHYSICAL EXAMINATION: BP 125/78 Pulse 66 Wt 299 lb (135.6kg) SpO2 98% Physical Exam Vitals reviewed. Constitutional: General: He is not in acute distress. Appearance: He is obese. HENT: Head: Normocephalic and atraumatic. Cardiovascular: Rate and Rhythm: Normal rate and regular rhythm. Heart sounds: Normal heart sounds, S1 normal and S2 normal. No murmur heard. No friction rub. Pulmonary: Effort: Pulmonary effort is normal. No respiratory distress. Breath sounds: Normal breath sounds. No wheezing, rhonchi or rales. Musculoskeletal: Cervical back: Neck supple. Skin: General: Skin is warm and dry. Neurological: General: No focal deficit present. Mental Status: He is alert and oriented to person, place, and time. Psychiatric: Mood and Affect: Mood normal. Behavior: Behavior normal. Thought Content: Thought content normal. CARDIOVASCULAR MEDICINE TESTING: Electrocardiogram: Sinus rhythm 65 bpm; normal conduction intervals (ND 186 ms, QRS 84 ms); QTc 413 ms I have personally reviewed the Electrocardiogram. I spent a total of 30 minutes on the date of the service which included preparing to see the patient, [id number] patient care, completing clinical documentation, obtaining and/or reviewing separately obtained history, performing a medically appropriate examination, counseling and educating the patient/family/caregiver, ordering medications, tests, or procedures, communicating with other HCPs (not separately reported), independently interpreting results (not separately reported), communicating results to the patient/family/caregiver, and care coordination (not separately reported). 1. Persistent atrial fibrillation (HCC) - ICD9: 427.31, ICD10: I48.19 (primary diagnosis) 2. Status post catheter ablation of atrial fibrillation - ICD9: V45.89, ICD10: Z98.890 3. Atypical atrial flutter (HCC) - ICD9: 427.32, ICD10: I48.4 4. At risk for stroke - ICD9: V15.89, ICD10: Z91.89 5. Anticoagulant long-term use - ICD9: V58.61, ICD10: Z79.01 6. Primary cardiomyopathy (HCC) - ICD9: 425.4, ICD10: I42.9 7. Chronic HFrEF (heart failure with reduced ejection fraction) (HCC) - ICD9: 428.22, ICD10: I50.22 8. Obesity, Class III, BMI 40-49.9 (morbid obesity) - ICD9: 278.01, ICD10: E66.813 9. MARIELLA on CPAP - ICD9: 327.23, ICD10: G47.33 CHADS2-Vasc Score Breakdown 3 Total Score 1 History of CHF 1 History of 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 1 History of diabetes mellitus IMPRESSION: 1. Persistent atrial fibrillation (HCC) (I48.19) Status post catheter ablation of atrial fibrillation (Z98.890) Atypical atrial flutter (HCC) (I48.4) Recurrent atrial fibrillation and atrial flutter despite previous catheter ablation and multiple electrical cardioversions. Currently in normal sinus rhythm as confirmed by today's EKG. - He states compliance with prescribed CPAP therapy for sleep apnea which is important to help reduce the chance of recurrent atrial arrhythmia - Weight loss would be important to help reduce the chances of recurrent atrial arrhythmia - Continue monitoring with periodic EKGs. - Follow-up in 6 months to reassess rhythm status. 2. At risk for stroke (Z91.89) Anticoagulant long-term use (Z79.01) High risk for stroke due to persistent atrial fibrillation and atrial flutter. Currently on Eliquis 5 mg BID with no reported bleeding complications. - Continue Eliquis 5 mg BID. - Monitor for any signs of bleeding. 3. Primary cardiomyopathy (HCC) (I42.9) Chronic HFrEF (heart failure with reduced ejection fraction) (HCC) (I50.22) Severe dilated cardiomyopathy with heart failure diagnosed in August 2021. Recent echocardiogram on 01/02/2023 showed normal LVEF of 55% and moderate concentric LVH. - Continue current heart failure management. - Follow-up with cardiology as scheduled. 4. Obesity, Class III, BMI 40-49.9 (morbid obesity) (E66.813) Significant weight loss of 46 pounds over the past year. Currently on Ozempic once a week. - Continue Ozempic as prescribed. - Monitor weight and BMI. 5. MARIELLA on CPAP (G47.33) Obstructive sleep apnea, compliant with CPAP therapy. - Continue CPAP therapy. PLAN AND RECOMMENDATIONS: As above. Continue with current plan of care from EP standpoint. Defer atrial fibrillation catheter ablation for now due to change in insurance as he is changing jobs. He will consider it for possibly in 2025. I had a detailed discussion with Mr. Karimi regarding my evaluation and recommendations. After our discussion, Mr. Karimi expressed his understanding and I answered all his questions to his apparent satisfaction. Return in about 6 months (around 04/14/2025) for EP RECORDS MANAGEMENT COORDINATOR. Lamar Nogueira MD 10/13/2024 Medical Decision Making: Problems: Moderate: 2+ stable chronic illnesses Data: Unique test result(s) reviewed: 2 Unique test(s) ordered: 1 Risk: Moderate: Moderate risk from testing/treatment, Decision on minor surgery w/ risk factors and Drug management Medical Decision Making Level: 4 - Moderate documented in this encounter [facility] 10-13-2024 Note HNO ID: [id number] Author: LAMAR NOGUEIRA MD Service: ? Author Type: Physician Type: Progress Notes Filed: 10/13/2024 12:56 Note Text: PRIMARY CARE PHYSICIAN: Margot Mai [address] [place] [address] Patient Care Team: Margot Mai MD as PCP - General (Family Medicine) Lazaro Marcus MD as Specialty Basin Cleaner (Cardiology) Lamar Nogueira MD as Specialty Basin Cleaner (Cardiology) Buster Harvey MD as Specialty Basin Cleaner (Cardiology) CHIEF COMPLAINT: Follow up for arrhythmia HISTORY OF PRESENT ILLNESS: Mr. Karimi is a 59 year old male who presents today for a cardiovascular medicine follow-up visit. Recording using ambient AI software for draft documentation of the visit was discussed with the patient/authorized kiosk sales representative; all questions welcomed and answered. Patient/authorized kiosk sales representative agreed to proceed History from previous notes, edited as needed and/or generated by dictation with use of AI.: Patient Overview: Mr. Irene has a history of atrial fibrillation diagnosed in August 2021. He had been experiencing exertional shortness of breath starting in late 2020, which progressively worsened and became severe by August 2021. Initially, he thought this was due to a pulmonary condition related to his 46-year smoking history, though he quit in July 2021. However, in August 2021, he was found to have severe dilated cardiomyopathy with heart failure and an LVEF of 15%, at which time atrial fibrillation was diagnosed. He was treated with amiodarone and underwent electrical cardioversion in September and October 2021, both of which failed to restore sinus rhythm. Amiodarone was discontinued. A heart catheterization in November 2021 revealed no significant coronary artery disease. He has sleep apnea and is compliant with CPAP therapy. Antiarrhythmic drug options were limited due to cardiomyopathy and heart failure. He underwent atrial fibrillation catheter ablation with cryoballoon ablation in February 2022. Unfortunately, he developed a recurrence of atrial fibrillation after the catheter ablation and underwent electrical cardioversion to restore sinus rhythm in September 2022. Diltiazem dosage was reduced to 120 mg daily due to lower extremity swelling. During an office follow-up with Keny Alexander APN, on March 24, 2024, he reported losing about 46 pounds in a year. However, an EKG revealed recurrence of atrial fibrillation or atrial flutter with a ventricular rate of 125 bpm. He admitted to being off carvedilol for a couple of months as he had run out of the medication. Carvedilol was discontinued, and he was prescribed metoprolol succinate. He underwent electrical cardioversion to restore sinus rhythm from atrial flutter on October 05, 2024. Diagnostic Results: - EKG (March 24, 2024): Recurrence of atrial fibrillation or atrial flutter with ventricular rate 125 bpm. - Echocardiogram (January 02, 2023): - Normal left ventricular size and systolic function, LVEF 55% - Moderate concentric LVH with an intraventricular septum of 1.3 cm - Normal left atrial and right atrial dimensions - No significant valvular abnormalities Interim History Dr. Nogueira 10/13/2024: The patient is a 59-year-old male with a history of atrial fibrillation, dilated cardiomyopathy, and heart failure, presenting for follow-up. The patient was diagnosed with atrial fibrillation in August 2021, following severe exertional dyspnea that began in late 2020. Initially attributed to a pulmonary condition due to a 46-year smoking history, he quit smoking in July 2021. In August 2021, he was diagnosed with severe dilated cardiomyopathy and heart failure with an LVEF of 15%. He was treated with amiodarone and underwent electrical cardioversion in September and October 2021, both of which failed to restore sinus rhythm. A heart catheterization in November 2021 revealed no significant CAD. Due to limited antiarrhythmic options, he underwent cryoballoon ablation in February 2022. Despite this, he experienced recurrent atrial fibrillation and underwent another electrical cardioversion in September 2022. An echocardiogram on 01/02/2023 showed normal LV size and systolic function with an LVEF of 55%, moderate concentric LVH, and no significant valvular abnormalities. In March 2024, he was found to have recurrent atrial fibrillation or atrial flutter with a ventricular rate of 125 bpm. He had been off carvedilol for a couple of months. Carvedilol was discontinued, and he was prescribed metoprolol succinate. He underwent electrical cardioversion on October 05, 2024, to restore sinus rhythm from atrial flutter. He denies awareness of any recurrent atrial fibrillation and monitors his heart rhythm monthly using a Kardia[employer] device. He denies chest pain or dyspnea. He was recently diagnosed with Crohn's disease after experiencing four days of diar (more content not included)... [facility] 08-12-2024 Consult note [facility] 08-12-2024 Progress note Note Date/Time August 12, 2024 10:11am [facility] Medical Records Department [address] [place] [id number] Progress Note - Hospitalist 08/12/24 0816 MR#: [id number] Acct: [id number] Name: PEDRO KARIMI Rep #:[id number] : 1965 58 From: Yfn Mccarthy MD PCP: Dr. Margot Mai MD Status:ADM IN Location: [place] [address] Reason for Visit Reason for Visit: Diagnoses Bacterial foodborne intoxication, unspecified (08/06/24) Obesity, unspecified (08/06/24) Obstructive sleep apnea (adult) (pediatric) (08/06/24) Paroxysmal atrial fibrillation (08/06/24) Bilious vomiting (08/06/24) Diarrhea, unspecified (08/06/24) Abnormal coagulation profile (08/06/24) Adverse effect of unspecified drugs, medicaments and biological substances, initial encounter (08/06/24) Personal history of colon polyps (08/06/24) Personal history of other diseases of the digestive system (08/06/24) Subjective Subjective Patient seen bleeding has subsided. INR down to 1.8. Plan is for patient to beassessed for possible discharge Objective Data Objective Data Vital Signs: Vital Signs Temp Pulse Resp BP Pulse Ox O2 Del Method 97.7 F L 65 18 150/74 H 99 Room Air 08/12/24 07:57 08/12/24 07:57 08/12/24 07:57 08/12/24 07:57 08/12/24 07:57 08/12/24 07:57 Oxygen Delivery Method Room Air Weight: 136.6 kg Body Mass Index (BMI) 38.6 Intake & Output: Intake and Output for Last 24 Hours 08/10/24 08/11/24 08/12/24 23:59 23:59 23:59 Intake Total 8027.5 / 8027.5 3500 / 3500 Output Total 300 / 300 Balance 8027.5 / 7777.5 3200 / 3200 Lab / Micro Data 08/12/24 05:28 08/12/24 05:24 Labs: Laboratory Results - last 24 hr 08/11/24 04:27: ESR 2, Lactate Dehydrogenase 184, C-React Prot Ext Range 10.40 H, BEBE-1 Antibody TNP, SS-A/Ro IgG Antibody TNP, SS-B/La IgG Antibody TNP, Sm (Roe) Antibody TNP, WINDING DEPARTMENT SUPERVISOR Antibody TNP, Antichromatin Antibodies TNP, CentromereB Antibody TNP 08/11/24 11:04: POC Glucose 87 08/11/24 16:36: POC Glucose 170 H 08/11/24 21:49: POC Glucose 210 H 08/12/24 05:24: Sodium 137, Potassium 3.1 L, Chloride 109 H, Carbon Dioxide 16.8L, Anion Gap 12, BUN 13, Creatinine 0.78, Estim Creat Clear Calc 151.79, Est GFR(MDRD) Non-Af 103, BUN/Creatinine Ratio 17.2, Glucose 189 H, Calcium 7.9, Phosphorus 3.0, Magnesium 1.6 08/12/24 05:28: WBC 11.1 H, RBC 4.42 L, Hgb 12.4 L, Hct 36.7 L, MCV 83.0, MCH 28.1, MCHC 33.8, RDW Std Deviation 45.1 H, RDW Coeff of Jett 15.0 H, Plt Count 162, MPV 11.0, Neut % (Auto) Not Reportable, Absolute Neuts (auto) 6.5, AbsoluteLymphs (auto) 2.11, Total Counted 100, Neutrophils % (Manual) 54, Band Neutrophils % 4, Lymphocytes % (Manual) 19, Monocytes % (Manual) 8, Eosinophils % (Manual) 13 H, Basophils % (Manual) 1, Metamyelocytes % 1, Diff Path Review May foll, Platelet Estimate ADEQUATE, RBC Morphology NORM C+C, PT 21.1 H, INR 1.8 08/12/24 06:20: POC Glucose 199 H Micro: Microbiology 08/06/24 03:00 Stool Enteric Bacteriology - Final 08/06/24 03:00 Stool Stool Lactoferrin - Final 08/06/24 03:00 Stool Clostridioides difficile (PCR) - Final 08/05/24 21:24 Stool Stool Occult Blood (EDUARD) - Final Occult Blood Positive Radiography Diagnostic Testing: Radiology Impression Renal Ultrasound 08/11/24 08:32 IMPRESSION: Horseshoe kidney. No evidence of hydronephrosis. Partial distention of the urinary bladder with mild bladder wall thickening. Reading Location: [place] [address] Physical Exam Narrative GENERAL: cooperative HEENT: Atraumatic; normocephalic EYES; Anicteric, Normal Conjunctiva NECK; supple, normal thyroid, RESPIRATORY: Diminished to auscultation CARDIOVASCULAR: Regular S1 S2, GI: soft, normoactive bowel sounds, : No Renal angle tenderness; EXTREMITIES: No edema, no clubbing, MUSCULOSKELETAL: no muscle wasting NEURO: Awake; no lateralizing signs. SKIN: No Rash PSYCH; Flat affect Assessment & Plan Assessment/Plan (1) Bloody diarrhea: (2) Nausea and vomiting: QUALIFIERS: Vomiting type: bilious vomiting Qualified Code(s): R11.14 - Bilious vomiting (3) Supratherapeutic INR: (4) Paroxysmal atrial fibrillation: (5) Obesity (BMI 30-39.9): (6) MARIELLA (obstructive sleep apnea): PLAN: Plan Patient is a 58-year-old Male with history of paroxysmal A-fib flutter on systemic anticoagulation with warfarin who presented with nausea vomiting as well as diarrhea of 3 days duration. She did develop bright red blood per rectum. Admitted to monitored bed with consultation placed to GI 1. Bloody diarrhea ? Patient admitted to monitored bed patient is on systemic anticoagulation with Coumadin held. Patient was apparently scheduled to undergo outpatient colonoscopy on 08/18/2024, given her presentation consult was placed to Dr. Friendfor endoscopic evaluation was in the hospital. Patient was found to have leukocytosis with bandemia subsequently started on antibiotic therapy with ciprofloxacin and Flagyl. Dr. Brito also ordered DAISY with reflex panel to ruleout inflammatory bowel disease -Colonoscopy performed on 08/11/[address] Brito did show Impressions : - Diverticulosis in the entire examined colon. - Two 1 to 2 mm polyps in the transverse colon and in the ascending colon, removed with a hot snare. Resected and retrieved. - Congested mucosa in the entire examined colon. Biopsied. - Mild inflammation was found in the ileum secondary to ileitis. Biopsied. 08/12/2024 Patient seen bleeding has subsided. INR down to 1.8. Plan is for patient to be assessed for possible discharge 2.Paroxysmal atrial fibrillation/flutter -Previous failed DCCV in 2021; cryoablation in 2021 patient is on rate controlling agent with diltiazem as well as metoprolol continued. Also on systemic anticoagulation with Coumadin she however presented with supratherapeutic INR and given her bleeding per rectum Coumadin was held 3. Coumadin induced coagulopathy ? Patient did receive vitamin K subsequent monitoring with daily INR ordered ? 08/12/2024; INR down to 1.8 4. Hypokalemia -Corrected per protocol ? 08/12/2024 additional replacement given. 5. Acute kidney injury ? Secondary to severe dehydration from diarrhea and decreased oral intake patient resuscitated with IV fluid with subsequent monitoring with daily BMPs ordered ? 08/12/2024; FRANSISCA resolved 6. Metabolic acidosis ? Secondary to FRANSSICA do expect improvement with treatment of underlying etiology 7. Diabetes mellitus type II -patient's oral hypoglycemics held. Placed on long acting insulin, Accu-Cheks a.c. and at bedtime and covered with sliding scale insulin 8. Essential 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 ? Patient blood pressure remained stable patient is on Lasix and lisinopril heldgiven her presentation 9. Class II obesity with BMI of 38.5 ? Complicating care weight loss advised 10. Nonischemic cardiomyopathy ? Thought to be tachycardia mediated monitored with serial echoes as outpatient 11. Chronic congestive heart failure with preserved ejection fraction ? Patient is on diuretic therapy held given her presentation?FRANSISCA 12. Tobacco dependence ? Counseled on cessation, offered nicotine patch for tobacco cravings 13.Depression -Continued home Wellbutrin 14. DVT prophylaxis -INR remains supratherapeutic Time spent in the patient's overall evaluation,decision-making process, review of diagnostic data, adjustment of management, discussion with other providers, nursing nursing and ancillary staff involved in patient's care documentation, 38 Minutes 08/12/24 1011 <Electronically signed by Yfn Mccarthy MD> Cosigner Signature (if applicable): CC: ~ Signed [facility] Work Phone: [phone]) 879-481504-01-2025 Discharge summary [facility] Medical Records Department [address] [place] [address] Discharge Summary 08/12/24 1128 MR#: [id number] Acct: [id number] Name: PEDRO KARIMI Rep #:[id number] : 1965 58 From: Yfn Mccarthy MD PCP: Dr. Margot Mai MD Status:ADM IN Location: [place] [address] Providers Date of Admission: 08/06/24 Date of Discharge: 08/12/24 Primary Care Physician: Dr. Margot Mai MD Consultations 08/08/24 11:21 Consult: Gastroenterology Routine Consulting Provider: [facility] Reason for Consult: Intractable diarrhea EMERGENT Consult: No MD Notified: Yes Date Notified: 08/08/24 Time Notified: 11:21 Method of Notification: Text Reason For Visit: BLOODY DIARRHEA WITH N/V, FOOD POISONING AND Diagnosis Discharge Diagnosis (1) Bloody diarrhea: Status: Acute Code(s): R19.7 - Diarrhea, unspecified (2) Nausea and vomiting: Status: Acute Code(s): R11.2 - Nausea with vomiting, unspecified Qualifiers: Vomiting type: bilious vomiting Qualified Code(s): R11.14 - Bilious vomiting (3) Supratherapeutic INR: Status: Acute Code(s): R79.1 - Abnormal coagulation profile (4) Paroxysmal atrial fibrillation: Status: Acute Code(s): I48.0 - Paroxysmal atrial fibrillation (5) Obesity (BMI 30-39.9): Status: Acute Code(s): E66.9 - Obesity, unspecified (6) MARIELLA (obstructive sleep apnea): Status: Chronic Code(s): G47.33 - Obstructive sleep apnea (adult) (pediatric) Plan Patient is a 58-year-old Male with history of paroxysmal A-fib flutter on systemic anticoagulation with warfarin who presented with nausea vomiting as well as diarrhea of 3 days duration. She did develop bright red blood per rectum. Admitted to monitored bed with consultation placed to GI 1. Bloody diarrhea ? Patient admitted to monitored bed patient is on systemic anticoagulation with Coumadin held. Patient was apparently scheduled to undergo outpatient colonoscopy on 08/18/2024, given her presentation consult was placed to Dr. Britofor endoscopic evaluation was in the hospital. Patient was found to have leukocytosis with bandemia subsequently started on antibiotic therapy with ciprofloxacin and Flagyl. Dr. Brito also ordered DAISY with reflex panel to ruleout inflammatory bowel disease -Colonoscopy performed on 08/11/[address] Brito did show Impressions : - Diverticulosis in the entire examined colon. - Two 1 to 2 mm polyps in the transverse colon and in the ascending colon, removed with a hot snare. Resected and retrieved. - Congested mucosa in the entire examined colon. Biopsied. - Mild inflammation was found in the ileum secondary to ileitis. Biopsied. 08/12/2024 Patient seen bleeding has subsided. Patient was discharged on ciprofloxacin, Flagyl, budesonide. With plans for patient to follow-up with in 2 weeks time 2.Paroxysmal atrial fibrillation/flutter -Previous failed DCCV in 2021; cryoablation in 2021 patient is on rate controlling agent with diltiazem as well as metoprolol continued. Also on systemic anticoagulation with Coumadin she however presented with supratherapeutic INR and given her bleeding per rectum Coumadin was held 3. Coumadin induced coagulopathy ? Patient did receive vitamin K subsequent monitoring with daily INR ordered ? 08/12/2024; INR down to 1.8. Patient instructed to resume Coumadin on 08/15/2024 and to follow-up with primary care physician to have repeat INR to be drawn on 08/18/2024 4. Hypokalemia -Corrected per protocol ? 08/12/2024 additional replacement given. 5. Acute kidney injury ? Secondary to severe dehydration from diarrhea and decreased oral intake patient resuscitated withIV fluid with subsequent monitoring with daily BMPs ordered ? 08/12/2024; FRANSISCA resolved 6. Metabolic acidosis ? Secondary to FRANSISCA do expect improvement with treatment of underlying etiology 7. Diabetes mellitus type II -patient's oral hypoglycemics held. Placed on long acting insulin, Accu-Cheks a.c. and at bedtime and covered with sliding scale insulin 8. Essential 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 ? Patient blood pressure remained stable patient is on Lasix and lisinopril heldgiven her presentation 9. Class II obesity with BMI of 38.5 ? Complicating care weight loss advised 10. Nonischemic cardiomyopathy ? Thought to be tachycardia mediated monitored with serial echoes as outpatient 11. Chronic congestive heart failure with preserved ejection fraction ? Patient is on diuretic therapy held given her presentation?FRANSISCA 12. Tobacco dependence ? Counseled on cessation, offered nicotine patch for tobacco cravings 13.Depression -Continued home Wellbutrin 14. DVT prophylaxis -INR remains supratherapeutic Time spent in the patient's overall evaluation,decision-making process, review of diagnostic data, adjustment of management, discussion with other providers, nursing nursing and ancillary staff involved in patient's care documentation, 38 Minutes Medications at Discharge Home Medications bupropion HCl 150 mg tablet,12 hr sustained-release 150 mg PO BID [id number]/22 metformin 1,000 mg tablet 1,000 mg PO BID dm 08/14/21 lisinopril 2.5 mg tablet 2.5 mg PO DAILY 05/22/22 insulin glargine 100 unit/mL (3 mL) subcutaneous pen (Lantus Solostar U-100 Insulin) 30 unit subcutBID 05/17/23 diltiazem HCl 120 mg capsule,extended release 24 hr 120 mg PO DAILY #90 caps 09/24/23 spironolactone 25 mg tablet See Rx Instructions .Route .COMPLEX #30 tabs 09/24/23 potassium chloride 10 mEq tablet,extended release 10 meq PO DAILY #90 tabs 07/18/24 furosemide 40 mg tablet 80 mg PO DAILY 08/05/24 metoprolol tartrate 75 mg tablet 75 mg PO Q12H 08/05/24 warfarin 2 mg tablet 2 mg PO WETH 08/05/24 Held on 08/12/24. Instructions: Resume on 08/15/24. warfarin 5 mg tablet 10 mg PO DAILY 08/05/24 Held on 08/12/24. Instructions: Resume on 08/15/24. budesonide 3 mg capsule,delayed,extended release 9 mg (3 x 3 mg) PO DAILY 60 days #180 ea 08/12/24 ciprofloxacin HCl 500 mg tablet (Cipro) 500 mg PO BID #10 tabs 08/12/24 colestipol 1 gram tablet 2 g (2 x 1 gram) PO 599,1999 30 days #120 tabs 08/12/24 loperamide 2 mg capsule 2 mg PO TID PRN loose stool #30 caps 08/12/24 metronidazole 500 mg tablet 500 mg PO Q8H 5 days #15 tabs 08/12/24 potassium chloride 20 mEq tablet,extended release(part/cryst) 20 meq PO BIDCM 5 days #10 tabs 08/12/24 psyllium husk (aspartame) 3 gram oral powder packet (Daily Fiber (psyllium- aspartame)) 1 packet PO BID #54 ea 08/12/24 Physical Exam Narrative GENERAL: cooperative HEENT: Atraumatic; normocephalic EYES; Anicteric, Normal Conjunctiva NECK; supple, normal thyroid, RESPIRATORY: Diminished to auscultation CARDIOVASCULAR: Regular S1 S2, GI: soft, normoactive bowel sounds, : No Renal angle tenderness; EXTREMITIES: No edema, no clubbing, MUSCULOSKELETAL: no muscle wasting NEURO: Awake; no lateralizing signs. SKIN: No Rash PSYCH; Flat affect Weight / BMI Weight Weight: 136.6 kg Body Mass Index (BMI) 38.6 ABG / Lab / Microbiology Data 08/12/24 05:28 08/12/24 05:24 Laboratory: Laboratory Results - last 24 hr 08/11/24 11:04: POC Glucose 87 08/11/24 16:36: POC Glucose 170 H 08/11/24 21:49: POC Glucose 210 H 08/12/24 05:24: Sodium 137, Potassium 3.1 L, Chloride 109 H, Carbon Dioxide 16.8L, Anion Gap 12, BUN 13, Creatinine 0.78, Estim Creat Clear Calc 151.79, Est GFR(MDRD) Non-Af 103, BUN/Creatinine Ratio17.2, Glucose 189 H, Calcium 7.9, Phosphorus 3.0, Magnesium 1.6 08/12/24 05:28: WBC 11.1 H, RBC 4.42 L, Hgb 12.4 L, Hct 36.7 L, MCV 83.0, MCH 28.1, MCHC 33.8, RDW Std Deviation 45.1 H, RDW Coeff of Jett 15.0 H, Plt Count 162, MPV 11.0, Neut % (Auto) Not Reportable, Absolute Neuts (auto) 6.5, AbsoluteLymphs (auto) 2.11, Total Counted 100, Neutrophils % (Manual) 54, Band Neutrophils % 4, Lymphocytes % (Manual) 19, Monocytes % (Manual) 8, Eosinophils % (Manual) 13 H, Basophils % (Manual) 1, Metamyelocytes % 1, Diff Path Review May , Platelet Estimate ADEQUATE, RBC Morphology NORM C+C, PT 21.1 H, INR 1.8 08/12/24 06:20: POC Glucose 199 H 08/12/24 09:13: POC Glucose 147 H Microbiology: Microbiology 08/10/24 09:15 Blood Culture (Wb) - Anticubital Left Blood Culture - Preliminary No growth in 48 hours. 08/10/24 09:10 Blood Culture (Wb) - Left Wrist Blood Culture - Preliminary No growth in 48 hours. 08/06/24 03:00 Stool Enteric Bacteriology - Final 08/06/24 03:00 Stool Stool Lactoferrin - Final 08/06/24 03:00 Stool Clostridioides difficile (PCR) - Final 08/05/24 21:24 Stool Stool Occult Blood (EDUARD) - Final Occult Blood Positive D/C Instructions Discharge Diet: 1800 Calorie Control Diet Discharge Activity: Return to Normal Activity Call your doctor if you observe: Fever of 101 or Higher, Shortness of breath, Fainting spells and Chest pain DC O2, CPAP, BIPAP Needs Home O2 Discharge instructions: No Meaningful Use Info Meaningful Use Meaningful Use Diagnoses (Choose all that apply): None applicable Ischemic Stroke Statin Dosing Therapy Reference: STATIN DOSE THERAPY REFERENCE: * Patients > 75 years receive moderate or high dose statin therapy. * Patients 75 years or YOUNGER should receive HIGH intensity statin dose unless contraindicated. You will be required to document reason for non-treatment if statin daily dose does not meet guidelines. HIGH DOSE STATIN THERAPY DAILY Atorvastatin > than or = to 40 mg Rosuvastatin > than or = to 20 mg Amlodipine + Atorvastatin > than or = to 2.5/40 mg Ezetimibe + Simvastatin 10/80 mg Simvastatin 80mg Discharge Plan Admission Admit Date/Time: 08/06/24 01:35 Attending Provider: Yfn Mccarthy Primary Care Provider: Margot Mai Consulting Providers: Yfn Dietz; Annetta Mar Discharge Orders/Prescriptions Prescriptions: New loperamide 2 mg Capsule 2 mg PO TID PRN (Reason: loose stool) Qty: 30 0RF potassium chloride 20 mEq Tablet,Er Particles/Crystals 20 meq PO BIDCM 5 Days Qty: 10 0RF budesonide 3 mg Capsule,Delayed,Extend.Release 9 mg PO DAILY 60 Days Qty: 180 0RF colestipol 1 gram Tablet 2 g PO 0600,1999 30 Days Qty: 120 0RF Daily Fiber (psyllium-aspart) 3 gram Powder In Packet 1 packet PO BID Qty: 54 0RF metronidazole 500 mg tablet 500 mg PO Q8H 5 Days Qty: 15 0RF ciprofloxacin HCl [Cipro] 500 mg tablet 500 mg PO BID Qty: 10 0RF Continued bupropion HCl 150 mg tablet sustained-release 12 hr 150 mg PO BID Patient Comments: TAKE 1 TABLET BY MOUTH TWICE DAILY metformin 1,000 mg tablet 1,000 mg PO BID Patient Comments: TAKE 1 TABLET BY MOUTH TWICE DAILY lisinopril 2.5 mg tablet 2.5 mg PO DAILY Patient Comments: TAKE 1 TABLET BY MOUTH ONCE DAILY insulin glargine [Lantus Solostar U-100 Insulin] 100 unit/mL (3 mL) insulin pen 30 unit SUBCUT BID Patient Comments: INJECT 30 UNITS in AM, and 30 UNITS in PM. metoprolol tartrate 75 mg tablet 75 mg PO Q12H furosemide 40 mg tablet 80 mg PO DAILY spironolactone 25 mg tablet See Rx Instructions .ROUTE .COMPLEX Qty: 30 12RF Dose Instruction: Take 1 tablet by mouth once daily Rx Instructions: Take 1 tablet by mouth once daily diltiazem HCl 120 mg capsule,extended release 24hr 120 mg PO DAILY Qty: 90 3RF potassium chloride 10 mEq tablet extended release 10 meq PO DAILY Qty: 90 3RF Held warfarin 2 mg tablet 2 mg PO WETH Hold Instructions: Resume on 08/15/24. Protocol: Dose Management Condition: Sunday Dose/Route: 10 mg Instruction: 2 x 5 mg tablets Condition: Sunday Dose/Route: 10 mg Instruction: 2 x 5 mg tablets Condition: Sunday Dose/Route: 10 mg Instruction: 2 x 5 mg tablets Condition: Sunday Dose/Route: 12 mg Instruction: 1 x 2 mg tablet, 2 x 5 mg tablets Condition: Dose/Route: 12 mg Instruction: 1 x 2 mg tablet, 2 x 5 mg tablets Condition: Sunday Dose/Route: 10 mg Instruction: 2 x 5 mg tablets Condition: Sunday Dose/Route: 10 mg Instruction: 2 x 5 mg tablets Protocol Text: Adjustment Start Date: 06/07/23 INR Value: 3.2 INR Date: 04/28/23 Recheck Date: 06/08/23 Rx Instructions: 2 mg orally daily with a two 5 mg tablet to =12 mg on ; or as directed warfarin 5 mg tablet 10 mg PO DAILY Hold Instructions: Resume on 08/15/24. Protocol: Dose Management Condition: Sunday Dose/Route: 10 mg Instruction: 2 x 5 mg tablets Condition: Sunday Dose/Route: 10 mg Instruction: 2 x 5 mg tablets Condition: Sunday Dose/Route: 10 mg Instruction: 2 x 5 mg tablets Condition: Sunday Dose/Route: 12 mg Instruction: 1 x 2 mg tablet, 2 x 5 mg tablets Condition: Dose/Route: 12 mg Instruction: 1 x 2 mg tablet, 2 x 5 mg tablets Condition: Sunday Dose/Route: 10 mg Instruction: 2 x 5 mg tablets Condition: Sunday Dose/Route: 10 mg Instruction: 2 x 5 mg tablets Protocol Text: Adjustment Start Date: 06/07/23 INR Value: 3.2 INR Date: 04/28/23 Recheck Date: 06/08/23 Rx Instructions: Two 5 mg orally daily (10mg daily and 12mg on ); as directed Referrals / Follow Up: Margot Mai MD [Primary Care Provider] - In 1 Week (For repeat INR on 08/18/2024) Bipin Brito DO [Med Staff - Active Staff] - Within 1 Week Disposition Disposition (needs filled in before D/C Order can be placed): Home, Self Care Charges/Coding Visit Charges Inpatient E&M: 72629 Disch Hosp >30min 08/12/24 1130 Cosigner Signature (if applicable): CC: Dr. Yfn Mccarthy MD; Dr. Margot Mai MD~ [facility]04-01-2025 [facility] Medical Records Department [address] [place] [id number] Discharge Summary 08/12/24 1128 MR#: [id number] Acct: [id number] Name: PEDRO KARIMI Rep #: [id number] : 1965 58 From: Yfn Mccarthy MD PCP: Dr. Margot Mai MD Status:ADM IN Location: [place] [address] Providers Date of Admission: 08/06/24 Date of Discharge: 08/12/24 Primary Care Physician: Dr. Margot Mai MD Consultations 08/08/24 11:21 Consult: Gastroenterology Routine Consulting Provider: [facility] Reason for Consult: Intractable diarrhea EMERGENT Consult: No MD Notified: Yes Date Notified: 08/08/24 Time Notified: 11:21 Method of Notification: Text Reason For Visit: BLOODY DIARRHEA WITH N/V, FOOD POISONING AND Diagnosis Discharge Diagnosis (1) Bloody diarrhea: Status: Acute Code(s): R19.7 - Diarrhea, unspecified (2) Nausea and vomiting: Status: Acute Code(s): R11.2 - Nausea with vomiting, unspecified Qualifiers: Vomiting type: bilious vomiting Qualified Code(s): R11.14 - Bilious vomiting (3) Supratherapeutic INR: Status: Acute Code(s): R79.1 - Abnormal coagulation profile (4) Paroxysmal atrial fibrillation: Status: Acute Code(s): I48.0 - Paroxysmal atrial fibrillation (5) Obesity (BMI 30-39.9): Status: Acute Code(s): E66.9 - Obesity, unspecified (6) MARIELLA (obstructive sleep apnea): Status: Chronic Code(s): G47.33 - Obstructive sleep apnea (adult) (pediatric) Plan Patient is a 58-year-old Male with history of paroxysmal A-fib flutter on systemic anticoagulation with warfarin who presented with nausea vomiting as well as diarrhea of 3 days duration. She did develop bright red blood per rectum. Admitted to monitored bed with consultation placed to GI 1. Bloody diarrhea ??? Patient admitted to monitored bed patient is on systemic anticoagulation with Coumadin held. Patient was apparently scheduled to undergo outpatient colonoscopy on 08/18/2024, given her presentation consult was placed to Dr. Brito for endoscopic evaluation was in the hospital. Patient was found to have leukocytosis with bandemia subsequently started on antibiotic therapy with ciprofloxacin and Flagyl. Dr. Brito also ordered DAISY with reflex panel to rule out inflammatory bowel disease -Colonoscopy performed on 08/11/[address] Brito did show Impressions : - Diverticulosis in the entire examined colon. - Two 1 to 2 mm polyps in the transverse colon and in the ascending colon, removed with a hot snare. Resected and retrieved. - Congested mucosa in the entire examined colon. Biopsied. - Mild inflammation was found in the ileum secondary to ileitis. Biopsied. 08/12/2024 Patient seen bleeding has subsided. Patient was discharged on ciprofloxacin, Flagyl, budesonide. With plans for patient to follow-up with Dr. Brito in 2 weeks time 2.Paroxysmal atrial fibrillation/flutter -Previous failed DCCV in 2021; cryoablation in 2021 patient is on rate controlling agent with diltiazem as well as metoprolol continued. Also on systemic anticoagulation with Coumadin she however presented with supratherapeutic INR and given her bleeding per rectum Coumadin was held 3. Coumadin induced coagulopathy ??? Patient did receive vitamin K subsequent monitoring with daily INR ordered ??? 08/12/2024; INR down to 1.8. Patient instructed to resume Coumadin on 08/15/2024 and to follow-up with primary care physician to have repeat INR to be drawn on 08/18/2024 4. Hypokalemia -Corrected per protocol ??? 08/12/2024 additional replacement given. 5. Acute kidney injury ??? Secondary to severe dehydration from diarrhea and decreased oral intake patient resuscitated with IV fluid with subsequent monitoring with daily BMPs ordered ??? 08/12/2024; FRANSISCA resolved 6. Metabolic acidosis ??? Secondary to FRANSISCA do expect improvement with treatment of underlying etiology 7. Diabetes mellitus type II -patient's oral hypoglycemics held. Placed on long acting insulin, Accu-Cheks a.c. and at bedtime and covered with sliding scale insulin 8. Essential 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 ??? Patient blood pressure remained stable patient is on Lasix and lisinopril held given her presentation 9. Class II obesity with BMI of 38.5 ??? Complicating care weight loss advised 10. Nonischemic cardiomyopathy ??? Thought to be tachycardia mediated monitored with serial echoes as outpatient 11. Chronic congestive heart failure with preserved ejection fraction ??? Patient is on diuretic therapy held given her presentation???FRANSISCA 12. Tobacco dependence ??? Counseled on cessation, offered nicotine patch for tobacco cravings 13.Depression -Continued home Wellbutrin 14. DVT prophylaxis -INR remains supratherapeutic Time spent in the patient's overall evaluation,decision-making process, review of diagnostic data, adjustment of manageme (more content not included)...[facility] 08-12-[address] [facility] Medical Records Department [address] [place] [address] Progress Note - Hospitalist 08/12/24 0816 MR#: [id number] Acct: [id number] Name: PEDRO KARIMI Rep #:[id number] : 1965 58 From: Yfn Mccarthy MD PCP: Dr. Margot Mai MD Status:ADM IN Location: [place] [address] Reason for Visit Reason for Visit: Diagnoses Bacterial foodborne intoxication, unspecified (08/06/24) Obesity, unspecified (08/06/24) Obstructive sleep apnea (adult) (pediatric) (08/06/24) Paroxysmal atrial fibrillation (08/06/24) Bilious vomiting (08/06/24) Diarrhea, unspecified (08/06/24) Abnormal coagulation profile (08/06/24) Adverse effect of unspecified drugs, medicaments and biological substances, initial encounter (08/06/24) Personal history of colon polyps (08/06/24) Personal history of other diseases of the digestive system (08/06/24) Subjective Subjective Patient seen bleeding has subsided. INR down to 1.8. Plan is for patient to beassessed for possibledischarge Objective Data Objective Data Vital Signs: Vital Signs Temp Pulse Resp BP Pulse Ox O2 Del Method 97.7 F L 65 18 150/74 H 99 Room Air 08/12/24 07:57 08/12/24 07:57 08/12/24 07:57 08/12/24 07:57 08/12/24 07:57 08/12/24 07:57 Oxygen Delivery Method Room Air Weight: 136.6 kg Body Mass Index (BMI) 38.6 Intake & Output: Intake and Output for Last 24 Hours 08/10/24 08/11/24 08/12/24 23:59 23:59 23:59 Intake Total 8027.5 / 8027.5 3500 / 3500 Output Total 300 / 300 Balance 8027.5 / 7777.5 3200 / 3200 Lab / Micro Data 08/12/24 05:28 08/12/24 05:24 Labs: Laboratory Results - last 24 hr 08/11/24 04:27: ESR 2, Lactate Dehydrogenase 184, C-React Prot Ext Range 10.40 H, BEBE-1 Antibody TNP, SS-A/Ro IgG Antibody TNP, SS-B/La IgG Antibody TNP, Sm (Roe) Antibody TNP, W[employer]PER[employer]OR Antibody TNP, Antichromatin Antibodies TNP, CentromereB Antibody TNP 08/11/24 11:04: POC Glucose 87 08/11/24 16:36: POC Glucose 170 H 08/11/24 21:49: POC Glucose 210 H 08/12/24 05:24: Sodium 137, Potassium 3.1 L, Chloride 109 H, Carbon Dioxide 16.8L, Anion Gap 12, BUN 13, Creatinine 0.78, Estim Creat Clear Calc 151.79, Est GFR(MDRD) Non-Af 103, BUN/Creatinine Ratio17.2, Glucose 189 H, Calcium 7.9, Phosphorus 3.0, Magnesium 1.6 08/12/24 05:28: WBC 11.1 H, RBC 4.42 L, Hgb 12.4 L, Hct 36.7 L, MCV 83.0, MCH 28.1, MCHC 33.8, RDW Std Deviation 45.1 H, RDW Coeff of Jett 15.0 H, Plt Count 162, MPV 11.0, Neut % (Auto) Not Reportable, Absolute Neuts (auto) 6.5, AbsoluteLymphs (auto) 2.11, Total Counted 100, Neutrophils % (Manual) 54, Band Neutrophils % 4, Lymphocytes % (Manual) 19, Monocytes % (Manual) 8, Eosinophils % (Manual) 13 H, Basophils % (Manual) 1, Metamyelocytes % 1, Diff Path Review September, Platelet Estimate ADEQUATE, RBC Morphology NORM C+C, PT 21.1 H, INR 1.8 08/12/24 06:20: POC Glucose 199 H Micro: Microbiology 08/06/24 03:00 Stool Enteric Bacteriology - Final 08/06/24 03:00 Stool Stool Lactoferrin - Final 08/06/24 03:00 Stool Clostridioides difficile (PCR) - Final 08/05/24 21:24 Stool Stool Occult Blood (EDUARD) - Final Occult Blood Positive Radiography Diagnostic Testing: Radiology Impression Renal Ultrasound 08/11/24 08:32 IMPRESSION: Horseshoe kidney. No evidence of hydronephrosis. Partial distention of the urinary bladder with mild bladder wall thickening. Reading Location: [facility] Physical Exam Narrative GENERAL: cooperative HEENT: Atraumatic; normocephalic EYES; Anicteric, Normal Conjunctiva NECK; supple, normal thyroid, RESPIRATORY: Diminished to auscultation CARDIOVASCULAR: Regular S1 S2, GI: soft, normoactive bowel sounds, : No Renal angle tenderness; EXTREMITIES: No edema, no clubbing, MUSCULOSKELETAL: no muscle wasting NEURO: Awake; no lateralizing signs. SKIN: No Rash PSYCH; Flat affect Assessment & Plan Assessment/Plan (1) Bloody diarrhea: (2) Nausea and vomiting: QUALIFIERS: Vomiting type: bilious vomiting Qualified Code(s): R11.14 - Bilious vomiting (3) Supratherapeutic INR: (4) Paroxysmal atrial fibrillation: (5) Obesity (BMI 30-39.9): (6) MARIELLA (obstructive sleep apnea): PLAN: Plan Patient is a 58-year-old Male with history of paroxysmal A-fib flutter on systemic anticoagulation with warfarin who presented with nausea vomiting as well as diarrhea of 3 days duration. She did develop bright red blood per rectum. Admitted to monitored bed with consultation placed to GI 1. Bloody diarrhea ? Patient admitted to monitored bed patient is on systemic anticoagulation with Coumadin held. Patient was apparently scheduled to undergo outpatient colonoscopy on 08/18/2024, given her presentation consult was placed to Dr. Britofor endoscopic evaluation was in the hospital. Patient was found to have leukocytosis with bandemia subsequently started on antibiotic therapy with ciprofloxacin and Flagyl. Dr. Brito also ordered DAISY with reflex panel to ruleout inflammatory bowel disease -Colonoscopy performed on 08/11/[address] Brito did show Impressions : - Diverticulosis in the entire examined colon. - Two 1 to 2 mm polyps in the transverse colon and in the ascending colon, removed with a hot snare. Resected and retrieved. - Congested mucosa in the entire examined colon. Biopsied. - Mild inflammation was found in the ileum secondary to ileitis. Biopsied. 08/12/2024 Patient seen bleeding has subsided. INR down to 1.8. Plan is for patient to be assessed for possible discharge 2.Paroxysmal atrial fibrillation/flutter -Previous failed DCCV in 2021; cryoablation in 2021 patient is on rate controlling agent with diltiazem as well as metoprolol continued. Also on systemic anticoagulation with Coumadin she however presented with supratherapeutic INR and given her bleeding per rectum Coumadin was held 3. Coumadin induced coagulopathy ? Patient did receive vitamin K subsequent monitoring with daily INR ordered ? 08/12/2024; INR down to 1.8 4. Hypokalemia -Corrected per protocol ? 08/12/2024 additional replacement given. 5. Acute kidney injury ? Secondary to severe dehydration from diarrhea and decreased oral intake patient resuscitated withIV fluid with subsequent monitoring with daily BMPs ordered ? 08/12/2024; FRANSISCA resolved 6. Metabolic acidosis ? Secondary to FRANSISCA do expect improvement with treatment of underlying etiology 7. Diabetes mellitus type II -patient's oral hypoglycemics held. Placed on long acting insulin, Accu-Cheks a.c. and at bedtime and covered with sliding scale insulin 8. Essential 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 ? Patient blood pressure remained stable patient is on Lasix and lisinopril heldgiven her presentation 9. Class II obesity with BMI of 38.5 ? Complicating care weight loss advised 10. Nonischemic cardiomyopathy ? Thought to be tachycardia mediated monitored with serial echoes as outpatient 11. Chronic congestive heart failure with preserved ejection fraction ? Patient is on diuretic therapy held given her presentation?FRANSISCA 12. Tobacco dependence ? Counseled on cessation, offered nicotine patch for tobacco cravings 13.Depression -Continued home Wellbutrin 14. DVT prophylaxis -INR remains supratherapeutic Time spent in the patient's overall evaluation,decision-making process, review of diagnostic data, adjustment of management, discussion with other providers, nursing nursing and ancillary staff involved in patient's care documentation, 38 Minutes 08/12/24 1011 Cosigner Signature (if applicable): CC: ~ Signed [facility]03-31-2025 Progress note Author Yfn Mccarthy [facility] Note Date/Time August 11, 2024 2:[address] [facility] Medical Records Department [address] [place] [address] Progress Note - Hospitalist 08/11/24 1154 MR#: [id number] Acct: [id number] Name: PEDRO KARIMI Rep #:[id number] : 1965 58 From: Yfn Mccarthy MD PCP: Dr. Margot Mai MD Status:ADM IN Location: [place] [address] Reason for Visit Reason for Visit: Diagnoses Bacterial foodborne intoxication, unspecified (08/06/24) Obesity, unspecified (08/06/24) Obstructive sleep apnea (adult) (pediatric) (08/06/24) Paroxysmal atrial fibrillation (08/06/24) Bilious vomiting (08/06/24) Diarrhea, unspecified (08/06/24) Abnormal coagulation profile (08/06/24) Adverse effect of unspecified drugs, medicaments and biological substances, initial encounter (08/06/24) Personal history of colon polyps (08/06/24) Personal history of other diseases of the digestive system (08/06/24) Subjective Subjective Patient is a 58-year-old Male with history of paroxysmal A-fib flutter on systemic anticoagulation with warfarin who presented with nausea vomiting as well as diarrhea of 3 days duration. She did develop bright red blood per rectum. Admitted to monitored bed with consultation placed to GI Objective Data Objective Data Vital Signs: Vital Signs Temp Pulse Resp BP Pulse Ox O2 Del Method 98.0 F 62 18 111/67 99 Room Air 08/11/24 11:39 08/11/24 11:39 08/11/24 11:39 08/11/24 11:39 08/11/24 11:39 08/11/24 09:03 Oxygen Delivery Method Room Air Weight: 136.1 kg Body Mass Index (BMI) 38.5 Intake & Output: Intake and Output for Last 24 Hours 08/09/24 08/10/24 08/11/24 23:59 23:59 23:59 Intake Total 3595.0 / 3595.0 8027.5 / 8027.5 1100 / 1100 Output Total 300 / 300 Balance 3595.0 / 3595.0 8027.5 / 7777.5 800 / 800 Lab / Micro Data 08/11/24 04:27 08/11/24 04:27 Labs: Laboratory Results - last 24 hr 08/10/24 12:07: POC Glucose 166 H 08/10/24 13:30: Sodium 132 L, Potassium 3.1 L, Chloride 101, Carbon Dioxide 20.6L, Anion Gap 11, BUN 28 H, Creatinine 1.49 H, Estim Creat Clear Calc 78.19, Est GFR (MDRD) Non-Af 54 L, BUN/Creatinine Ratio 18.5, Glucose 156 H, Calcium 8.2 08/10/24 17:39: POC Glucose 131 H 08/10/24 21:57: POC Glucose 158 H 08/10/24 22:20: Urine Color Yellow, Urine Clarity Clear, Urine pH 6.0, Ur Specific [employer] 1.010, Urine Protein 15 H, Urine Glucose (UA) Normal, Urine Ketones Negative, Urine Occult Blood Negative, Urine Nitrite Negative, Urine Bilirubin Negative, Urine Urobilinogen Normal, Ur Leukocyte Esterase 25 H, UrineRBC 0 SEEN, Urine WBC 0 SEEN, Ur Squamous Epith Cells 0 SEEN, Urine Bacteria 0 SEEN, Urine Mucus 0 SEEN, Ur Random Sodium < 20, Urine Creatinine 82.00 08/11/24 04:27: WBC 15.5 H, RBC 4.78, Hgb 13.3, Hct 38.6 L, MCV 80.8, MCH 27.8, MCHC 34.5, RDW Std Deviation 43.1, RDW Coeff of Jett 14.9 H, Plt Count 198, MPV 10.7, Neut % (Auto) Not Reportable, Absolute Neuts (auto) 9.0 H, Absolute Lymphs(auto) 4.19, Total Counted 100, Neutrophils % (Manual) 39 L, Band Neutrophils % 19 H, Metamyelocytes % 2 H, Myelocytes % 2 H, Differential Comment SCANNED, DiffPath Review May foll, Reactive Lymphocytes 1+, ESR 2, Sodium 134, Potassium 3.4,Chloride 105, Carbon Dioxide 19.6 L, Anion Gap 10, BUN 19, Creatinine 1.12, Estim Creat Clear Calc 104.02, Est GFR (MDRD) Non-Af 76, BUN/Creatinine Ratio 17.2, Glucose 77, Calcium 8.2, Total Bilirubin 0.22, AST 12, ALT 7, Alkaline Phosphatase 71, Lactate Dehydrogenase 184, C-React Prot Ext Range 10.40 H, TotalProtein 4.8 L, Albumin 2.9 L, Globulin 1.9 L, Albumin/Globulin Ratio 1.6, BEBE-1 Antibody TNP, SS-A/Ro IgG Antibody TNP, SS- B/La IgG Antibody TNP, Sm (Roe) Antibody TNP, W[employer] SUPER[employer]OR Antibody TNP, Antichromatin Antibodies TNP, Centromere B Antibody TNP Micro: Microbiology 08/06/24 03:00 Stool Enteric Bacteriology - Final 08/06/24 03:00 Stool Stool Lactoferrin - Final 08/06/24 03:00 Stool Clostridioides difficile (PCR) - Final 08/05/24 21:24 Stool Stool Occult Blood (EDUARD) - Final Occult Blood Positive Radiography Diagnostic Testing: Radiology Impression Renal Ultrasound 08/11/24 08:32 IMPRESSION: Horseshoe kidney. No evidence of hydronephrosis. Partial distention of the urinary bladder with mild bladder wall thickening. Reading Location: [place] [address] Physical Exam Narrative GENERAL: cooperative HEENT: Atraumatic; normocephalic EYES; Anicteric, Normal Conjunctiva NECK; supple, normal thyroid, RESPIRATORY: Diminished to auscultation CARDIOVASCULAR: Regular S1 S2, GI: soft, normoactive bowel sounds, : No Renal angle tenderness; EXTREMITIES: No edema, no clubbing, MUSCULOSKELETAL: no muscle wasting NEURO: Awake; no lateralizing signs. SKIN: No Rash PSYCH; Flat affect Assessment & Plan Assessment/Plan (1) Bloody diarrhea: (2) Nausea and vomiting: QUALIFIERS: Vomiting type: bilious vomiting Qualified Code(s): R11.14 - Bilious vomiting (3) Supratherapeutic INR: (4) Paroxysmal atrial fibrillation: (5) Obesity (BMI 30-39.9): (6) MARIELLA (obstructive sleep apnea): PLAN: Plan Patient is a 58-year-old Male with history of paroxysmal A-fib flutter on systemic anticoagulation with warfarin who presented with nausea vomiting as well as diarrhea of 3 days duration. She did develop bright red blood per rectum. Admitted to monitored bed with consultation placed to GI 1. Bloody diarrhea ? Patient admitted to monitored bed patient is on systemic anticoagulation with Coumadin held. Patient was apparently scheduled to undergo outpatient colonoscopy on 08/18/2024, given her presentation consult was placed to Dr. Britofor endoscopic evaluation was in the hospital. Patient was found to have leukocytosis with bandemia subsequently started on antibiotic therapy with ciprofloxacin and Flagyl. Dr. Brito also ordered DAISY with reflex panel to ruleout inflammatory bowel disease -Colonoscopy performed on 08/11/[address] Brito did show Impressions : - Diverticulosis in the entire examined colon. - Two 1 to 2 mm polyps in the transverse colon and in the ascending colon, removed with a hot snare. Resected and retrieved. - Congested mucosa in the entire examined colon. Biopsied. - Mild inflammation was found in the ileum secondary to ileitis. Biopsied. 2.Paroxysmal atrial fibrillation/flutter -Previous failed DCCV in 2021; cryoablation in 2021 patient is on rate controlling agent with diltiazem as well as metoprolol continued. Also on systemic anticoagulation with Coumadin she however presented with supratherapeutic INR and given her bleeding per rectum Coumadin was held 3. Coumadin induced coagulopathy ? Patient did receive vitamin K subsequent monitoring with daily INR ordered 4. Hypokalemia -Corrected per protocol 5. Acute kidney injury ? Secondary to severe dehydration from diarrhea and decreased oral intake patient resuscitated with IV fluid with subsequent monitoring with daily BMPs ordered 6. Metabolic acidosis ? Secondary to FRANSISCA do expect improvement with treatment of underlying etiology 7. Diabetes mellitus type II -patient's oral hypoglycemics held. Placed on long acting insulin, Accu-Cheks a.c. and at bedtime and covered with sliding scale insulin 8. Essential 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 ? Patient blood pressure remained stable patient is on Lasix and lisinopril heldgiven her presentation 9. Class II obesity with BMI of 38.5 ? Complicating care weight loss advised 10. Nonischemic cardiomyopathy ? Thought to be tachycardia mediated monitored with serial echoes as outpatient 11. Chronic congestive heart failure with preserved ejection fraction ? Patient is on diuretic therapy held given her presentation?FRANSISCA 12. Tobacco dependence ? Counseled on cessation, offered nicotine patch for tobacco cravings 13.Depression -Continued home Wellbutrin 14. DVT prophylaxis -INR remains supratherapeutic Time spent in the patient's overall evaluation,decision-making process, review of diagnostic data, adjustment of management, discussion with other providers, nursing nursing and ancillary staff involved in patient's care documentation, 50 Minutes Charges/Coding Visit Charges Inpatient E&M: 72527 Subs Hosp L3 08/11/24 1418 <Electronically signed by Yfn Mccarthy MD> Cosigner Signature (if applicable): CC: ~ Signed [facility] Work Phone: [phone] Consult note Author Jayant Archuleta [facility] Note Date/Time August 12, 2024 1:21 pm [facility] Medical Records Department [address] [place] [address] Anesthesia Postop Eval II 08/11/24 1346 MR#: [id number] Acct: [id number] Name: PEDRO KARIMI Rep #:[id number] : 1965 58 From: Jayant Archuleta MD PCP: Dr. Margot Mai MD Status:ADM IN Y Race: C Location: [place] [address] Anesthesia Postop Eval I Sum Postop Eval Completion status Anesthesia document: Postop Eval 1 completed: Yes Anesthesia Postop Eval I Summary Anesthesia Postop Eval I Summary: Anesthesia Postop Eval I: Assessment Summary 3 Airway patent Yes 08/11/24 12:56 [email or web address] Spontaneous unlabored Yes 08/11/24 12:56 [email or web address] respirations Mental status Awake,Calm 08/11/24 12:56 [email or web address] nausea No 08/11/24 12:56 [email or web address] Vomiting No 08/11/24 12:56 [email or web address] Anesthesia Postop Eval I: Fluid Summary Crystalloid volume administer 90 08/11/24 12:56 [email or web address] (ml) Colloids volume administered ( ml) Blood Product volume administered (ml) Total IV fluid infused 90 08/11/24 12:56 [email or web address] Anesthesia Postop Eval I: Summary Notes Anesthesia Complication No 08/11/24 12:56 [email or web address] Anesthesia Complication Comment: Post-operative progress note Anesthesia: Postop Eval II Evaluation Mental status: Awake Pain Level: 0 nausea: No Vomiting: No 08/11/24 1346 <Electronically signed by Jayant Archuleta MD > Date _ Jayant Carter Signature: Date CC: ~ Signed [facility] Work Phone: [phone] 606-891303-31-2025 Consult note Author Alexx Reyes [facility] Note Date/Time August 11, 2024 12: 56pm [facility] Medical Records Department [address] [place] [address] Anesthesia Postop Eval I 08/11/24 1254 MR#: [id number] Acct: [id number] Name: PEDRO KARIMI Rep #:[id number] : 1965 58 From: Alexx Reyes PCP: Dr. Margot Mai MD Status:ADM IN Y Race: C Location: [place] [address] Anesthesia: Postop Eval I Current Vital Signs Temperature: 97 F Pulse Rate: 62 Blood Pressure: 103/48 Respiratory Rate: 16 Pulse Ox: 98 Oxygen Delivery Method: Room Air Assessment Airway patent: Yes Spontaneous unlabored respirations: Yes Mental status: Awake and Calm nausea: No Vomiting: No Anesthesia Complication: No Fluid Hydration Crystalloid volume administer (ml): 90 Total IV fluid infused: 90 Progress Note Anesthesia document: Postop Eval 1 completed: Yes 08/11/24 1256 <Electronically signed by Alexx Reyes > Date _ Alexx Carter Signature: Date CC: ~ Signed [facility] Work Phone: 1(233) 628-605003-31-[address] [facility] Medical Records Department [address] [place] [address] Progress Note - Hospitalist 08/11/24 1154 MR#: [id number] Acct: [id number] Name: PEDRO KARIMI Rep #:[id number] : 1965 58 From: Yfn Mccarthy MD PCP: Dr. Margot Mai MD Status:ADM IN Location: [place] [address] Reason for Visit Reason for Visit: Diagnoses Bacterial foodborne intoxication, unspecified (08/06/24) Obesity, unspecified (08/06/24) Obstructive sleep apnea (adult) (pediatric) (08/06/24) Paroxysmal atrial fibrillation (08/06/24) Bilious vomiting (08/06/24) Diarrhea, unspecified (08/06/24) Abnormal coagulation profile (08/06/24) Adverse effect of unspecified drugs, medicaments and biological substances, initial encounter (08/06/24) Personal history of colon polyps (08/06/24) Personal history of other diseases of the digestive system (08/06/24) Subjective Subjective Patient is a 58-year-old Male with history of paroxysmal A-fib flutter on systemic anticoagulation with warfarin who presented with nausea vomiting as well as diarrhea of 3 days duration. She did develop bright red blood per rectum. Admitted to monitored bed with consultation placed to GI Objective Data Objective Data Vital Signs: Vital Signs Temp Pulse Resp BP Pulse Ox O2 Del Method 98.0 F 62 18 111/67 99 Room Air 08/11/24 11:39 08/11/24 11:39 08/11/24 11:39 08/11/24 11:39 08/11/24 11:39 08/11/24 09:03 Oxygen Delivery Method Room Air Weight: 136.1 kg Body Mass Index (BMI) 38.5 Intake & Output: Intake and Output for Last 24 Hours 08/09/24 08/10/24 08/11/24 23:59 23:59 23:59 Intake Total 3595.0 / 3595.0 8027.5 / 8027.5 1100 / 1100 Output Total 300 / 300 Balance 3595.0 / 3595.0 8027.5 / 7777.5 800 / 800 Lab / Micro Data 08/11/24 04:27 08/11/24 04:27 Labs: Laboratory Results - last 24 hr 08/10/24 12:07: POC Glucose 166 H 08/10/24 13:30: Sodium 132 L, Potassium 3.1 L, Chloride 101, Carbon Dioxide 20.6L, Anion Gap 11, BUN 28 H, Creatinine 1.49 H, Estim Creat Clear Calc 78.19, Est GFR (MDRD) Non-Af 54 L, BUN/Creatinine Ratio 18.5, Glucose 156 H, Calcium 8.2 08/10/24 17:39: POC Glucose 131 H 08/10/24 21:57: POC Glucose 158 H 08/10/24 22:20: Urine Color Yellow, Urine Clarity Clear, Urine pH 6.0, Ur Specific [employer] 1.010, Urine Protein 15 H, Urine Glucose (UA) Normal, Urine Ketones Negative, Urine Occult Blood Negative, Urine Nitrite Negative, Urine Bilirubin Negative, Urine Urobilinogen Normal, Ur Leukocyte Esterase 25H, UrineRBC 0 SEEN, Urine WBC 0 SEEN, Ur Squamous Epith Cells 0 SEEN, Urine Bacteria 0 SEEN, Urine Mucus 0 SEEN, Ur Random Sodium < 20, Urine Creatinine 82.00 08/11/24 04:27: WBC 15.5 H, RBC 4.78, Hgb 13.3, Hct 38.6 L, MCV 80.8, MCH 27.8, MCHC 34.5, RDW Std Deviation 43.1, RDW Coeff of Jett 14.9 H, Plt Count 198, MPV 10.7, Neut % (Auto) Not Reportable, Absolute Neuts (auto) 9.0 H, Absolute Lymphs(auto) 4.19, Total Counted 100, Neutrophils % (Manual) 39 L,Band Neutrophils % 19 H, Metamyelocytes % 2 H, Myelocytes % 2 H, Differential Comment SCANNED, DiffPath Review May foll, Reactive Lymphocytes 1+, ESR 2, Sodium 134, Potassium 3.4,Chloride 105, CarbonDioxide 19.6 L, Anion Gap 10, BUN 19, Creatinine 1.12, Estim Creat Clear Calc 104.02, Est GFR (MDRD) Non-Af 76, BUN/Creatinine Ratio 17.2, Glucose 77, Calcium 8.2, Total Bilirubin 0.22, AST 12, ALT 7, Alkaline Phosphatase 71, Lactate Dehydrogenase 184, C-React Prot Ext Range 10.40 H, TotalProtein 4.8 L, Albumin 2.9 L, Globulin 1.9 L, Albumin/Globulin Ratio 1.6, BEBE-1 Antibody TNP, SS-A/Ro IgG Antibody TNP, SS-B/La IgG Antibody TNP, Sm (Roe) Antibody TNP, [employer] Antibody TNP, Antichromatin Antibodies TNP, Centromere B Antibody TNP Micro: Microbiology 08/06/24 03:00 Stool Enteric Bacteriology - Final 08/06/24 03:00 Stool Stool Lactoferrin - Final 08/06/24 03:00 Stool Clostridioides difficile (PCR) - Final 08/05/24 21:24 Stool Stool Occult Blood (EDUARD) - Final Occult Blood Positive Radiography Diagnostic Testing: Radiology Impression Renal Ultrasound 08/11/24 08:32 IMPRESSION: Horseshoe kidney. No evidence of hydronephrosis. Partial distention of the urinary bladder with mild bladder wall thickening. Reading Location: [place] [address] Physical Exam Narrative GENERAL: cooperative HEENT: Atraumatic; normocephalic EYES; Anicteric, Normal Conjunctiva NECK; supple, normal thyroid, RESPIRATORY: Diminished to auscultation CARDIOVASCULAR: Regular S1 S2, GI: soft, normoactive bowel sounds, : No Renal angle tenderness; EXTREMITIES: No edema, no clubbing, MUSCULOSKELETAL: no muscle wasting NEURO: Awake; no lateralizing signs. SKIN: No Rash PSYCH; Flat affect Assessment & Plan Assessment/Plan (1) Bloody diarrhea: (2) Nausea and vomiting: QUALIFIERS: Vomiting type: bilious vomiting Qualified Code(s): R11.14 - Bilious vomiting (3) Supratherapeutic INR: (4) Paroxysmal atrial fibrillation: (5) Obesity (BMI 30-39.9): (6) MARIELLA (obstructive sleep apnea): PLAN: Plan Patient is a 58-year-old Male with history of paroxysmal A-fib flutter on systemic anticoagulation with warfarin who presented with nausea vomiting as well as diarrhea of 3 days duration. She did develop bright red blood per rectum. Admitted to monitored bed with consultation placed to GI 1. Bloody diarrhea ? Patient admitted to monitored bed patient is on systemic anticoagulation with Coumadin held. Patient was apparently scheduled to undergo outpatient colonoscopy on 08/18/2024, given her presentation consult was placed to Dr. Britofor endoscopic evaluation was in the hospital. Patient was found to have leukocytosis with bandemia subsequently started on antibiotic therapy with ciprofloxacin and Flagyl. Dr. Brito also ordered DAISY with reflex panel to ruleout inflammatory bowel disease -Colonoscopy performed on 08/11/[address] Brito did show Impressions : - Diverticulosis in the entire examined colon. - Two 1 to 2 mm polyps in the transverse colon and in the ascending colon, removed with a hot snare. Resected and retrieved. - Congested mucosa in the entire examined colon. Biopsied. - Mild inflammation was found in the ileum secondary to ileitis. Biopsied. 2.Paroxysmal atrial fibrillation/flutter -Previous failed DCCV in 2021; cryoablation in 2021 patient is on rate controlling agent with diltiazem as well as metoprolol continued. Also on systemic anticoagulation with Coumadin she however presented with supratherapeutic INR and given her bleeding per rectum Coumadin was held 3. Coumadin induced coagulopathy ? Patient did receive vitamin K subsequent monitoring with daily INR ordered 4. Hypokalemia -Corrected per protocol 5. Acute kidney injury ? Secondary to severe dehydration from diarrhea and decreased oral intake patient resuscitated withIV fluid with subsequent monitoring with daily BMPs ordered 6. Metabolic acidosis ? Secondary to FRANSISCA do expect improvement with treatment of underlying etiology 7. Diabetes mellitus type II -patient's oral hypoglycemics held. Placed on long acting insulin, Accu-Cheks a.c. and at bedtime and covered with sliding scale insulin 8. Essential 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 ? Patient blood pressure remained stable patient is on Lasix and lisinopril heldgiven her presentation 9. Class II obesity with BMI of 38.5 ? Complicating care weight loss advised 10. Nonischemic cardiomyopathy ? Thought to be tachycardia mediated monitored with serial echoes as outpatient 11. Chronic congestive heart failure with preserved ejection fraction ? Patient is on diuretic therapy held given her presentation?FRANSISCA 12. Tobacco dependence ? Counseled on cessation, offered nicotine patch for tobacco cravings 13.Depression -Continued home Wellbutrin 14. DVT prophylaxis -INR remains supratherapeutic Time spent in the patient's overall evaluation,decision-making process, review of diagnostic data, adjustment of management, discussion with other providers, nursing nursing and ancillary staff involved in patient's care documentation, 50 Minutes Charges/Coding Visit Charges Inpatient E&M: 20122 [facility] Hosp 08/11/24 8648 Cosigner Signature (if applicable): CC: ~ Signed [facility]03-31-2025 Progress note Author Bipin Friend [facility] Note Date/Time August 11, 2024 11: 56am [facility] Medical Records Department [address] [place] [address] Progress Note 08/11/24 1153 MR#: [id number] Acct: [id number] Name: PEDRO KARIMI Rep #:[id number] : 1965 58 From: Bipin Brito DO PCP: Dr. Margot Mai MD Status:ADM IN Location: [place] [address] Progress Note The patient prep for colonoscopy and upper endoscopy today. He is not having abdominal pain. All questions concerns answered. Physical Exam Const alert, oriented x3, no apparent distress and well nourished; Negative for average body habitus or healthy appearing Constitutional Narrative: Morbidly obese, white male, sitting up in a chair at the bedside, appears well, nontoxic appearing, watching television General Appearance: cooperative HEENT normocephalic, head/scalp atraumatic, hearing grossly normal bilaterally and moist oral mucous membranes HEENT Narrative: Mallampati 4, no thrush Eyes conjunctivae normal Eyes Narrative: No scleral icterus Neck supple Neck Narrative: Neck is short and thick and trachea is midline Resp normal respiratory effort, no retractions, no use of accessory muscles and clearto auscultation bilaterally Cardio regular rate, regular rhythm, S1 normal heart sound, S2 normal heart sound, no murmurs, no rub, no gallops and no clicks GI normal to inspection, nondistended, normoactive bowel sounds, soft to palpation and non-tender Extremity no clubbing, cyanosis or edema Extremity Narrative: Pedal and radial pulses are 2+ Skin skin turgor normal, no jaundice, no petechiae and no mottling Neuro oriented x3, moves all extremities and no focal motor deficits Speech: speech normal Psych affect normal Psych Narrative: Very pleasant, interacts appropriately, eye contact is good, seems a bit less frustrated today Assessment & Plan Assessment/Plan (1) Bloody diarrhea: (2) Nausea and vomiting: QUALIFIERS: Vomiting type: bilious vomiting Qualified Code(s): R11.14 - Bilious vomiting (3) Food poisoning: (4) Supratherapeutic INR: (5) Paroxysmal atrial fibrillation: (6) Obesity (BMI 30-39.9): (7) MARIELLA (obstructive sleep apnea): PLAN: Plan 58 yo with Bloody Diarrhea with Nausea and Vomiting causing Bilious Emesis initially triggered by suspected Food Poisoning with CT scan of abdomen/pelvis Differential Diagnosis- Inflammatory bowel disease, Microscopic colitis, IBS with diarrhea. PLAN: Persistent intractable diarrhea -Etiology remains unclear at this time -Plan is for EGD and colonoscopy tomorrow without the diagnosis -C. difficile is negative -Enteric panel is negative -Lactoferrin is negative -Sed rate and CRP are both unremarkable -Continue cholestyramine and Metamucil -Continue Imodium 2 mg p.o. 3 times daily per GI -White count remains elevated but bandemia seems to be improving -Blood cultures pending -Continue Flagyl and Cipro for now-->Cipro is renally dosed -He will get an egd and colonoscopy on 08/11/2024 today Visit Charges Inpatient E&M: 56183 Subs Hosp L3 08/11/24 1156 <Electronically signed by Bipin Brito DO> Bipin Brito DO Cosigner Signature (if applicable): CC: ~ Signed [facility] Work Phone: [phone]) 379-956803-31-2025 Consult note Author Jayant Archuleta [facility] Note Date/Time August 11, 2024 11: 40am [facility] Medical Records Department [address] [place] [address] Pre-Anesthesia Evaluation 08/11/24 1139 MR#: [id number] Acct: [id number] Name: PEDRO KARIMI Rep #:[id number] : 1965 58 From: Jayant Archuleta MD PCP: Dr. Margot Mai MD Status:ADM IN Y Race: C Location: [place] [address] ASA Classification* ASA Classification ASA Classification: 3 Assessment & Plan Anesthesia* Anesthesia Assessment Anesthesia Assessment: Discussed sedation and/or anesthesia options, risks, benefits, and alternatives with patient/parents/legal guardian/POA. Questions invited. The patient/parents/legal guardian/POA seems to understand and agrees to proceedwith anesthesia plan. Reviewed the physical assessment, medical history, allergy history and patient home medications list prior to surgery/procedure/anesthetic and documented any changes. Performed airway and anesthesia risk assessments. Anesthesia Type Anesthesia Type: MAC Anesthesia Focused Assessment* Temperature: 98.0 F Pulse Rate: 62 Blood Pressure: 111/67 Respiratory Rate: 18 Pulse Ox: 99 Airway Assessment Mouth opens: >3 cm Mallampati Score: II Focused Labs Anesthesia Preop lab: CBC WBC 15.5 K/mm3 (4.4-11.0) H 08/11/24 04:27 5 RBC 4.78 M/mm3 (4.6-6.2) 08/11/24 04:27 08/11/24 Hgb 13.3 g/dL (13.0-16.5) 08/11/24 04:27 08/11/24 Hct 38.6 % (40-54) L 08/11/24 04:27 08/11/24 Plt Count 198 K/mm3 (150-450) 08/11/24 04:27 08/11/24 CHEMISTRY Potassium 3.4 mmol/L (3.3-5.1) 08/11/24 04:27 08/11/24 Sodium 134 mmol/L (133-145) 08/11/24 04:27 08/11/24 Magnesium 1.8 mg/dL (1.5-2.2) 08/10/24 04:47 08/10/24 Phosphorus 5.2 mg/dL (2.7-4.5) H 08/10/24 04:47 08/10/24 BUN 19 mg/dL (4-19) 08/11/24 04:27 08/11/24 Creatinine 1.12 mg/dL (0.70-1.20) 08/11/24 04:27 08/11/24 Glucose 77 mg/dL (70-99) 08/11/24 04:27 08/11/24 POC Glucose 158 mg/dL (74-106) H 08/10/24 21:57 08/10/24 TSH 4.200 uIU/mL (0.300-4.200) 08/05/24 21:20 03/10/05 COAG PT 43.9 SECONDS (11.7-14.9) H 08/10/24 04:47 07/14 Pre-Assessment Diagnosis/Proposed Procedure Planned Operative Procedure(s): EGD, colonoscopy. Anesthesia History Anesthesia History - weight engineer: Anesthesia History - weight engineer Hx Hospitalization Yes: [facility] 03/0405/22/22 14:12 Any Problems With Anesthesia No 05/22/22 14:12 Cholinesterase deficiency No 05/22/22 14:12 You/Your Family Experience No 05/22/22 14:12 fever (hyperthermia) with Relationship Recent Exposure to Contagious No 05/24/22 08:47 Disease Does patient have nerve No 05/22/22 14:12 stimulator Patient instructed to have device shut off --Does patient have Pacemaker or ICD? When Was Last Pacemaker Check QUESTION #4 FULL TEXT: You/Your Family Experience fever (hyperthermia) with Anesthesia Last Oral Intake Last Oral intake: Last Oral Intake NPO since Meds taken in AM with sips of water? Meds patient instructed to take am of surgery PONV PONV - weight engineer: PONV - weight engineer Female HX of Motion Sickness HX of N/V After Surgery Non-Smoker Duration of Surgery greater than 60 minutes Number of Risk Factors PONV Score Height & Weight Height & Weight: Anesthesia: Height & Weight Height 6 ft 2 in 08/06/24 16:18 Weight: 136.1 kg 08/11/24 06:00 Body Mass Index (BMI) 38.5 08/11/24 06:00 Respiratory Assessment Respiratory Assessment - weight engineer: Respiratory Tract Infection Hx - weight engineer Hx Respiratory Tract Infection No 05/22/22 14:12 STOP Sleep Apnea STOP Sleep Apnea - weight engineer: STOP Sleep Apnea - weight engineer Hx Hypertension Yes 08/06/24 02:06 Hx Sleep Apnea Yes 08/06/24 02:06 CPAP Yes 08/06/24 02:06 BIPAP No 08/06/24 02:06 Do you snore loudly (louder than talking or can be heard Do you often feel tired/ fatigued/ sleepy during daytime? Has anyone observed you stop breathing during sleep? STOP Results Positive 08/06/24 02:06 QUESTION #5 FULL TEXT : Do you snore loudly (louder than talking or can be heard through closed doors)? Tobacco Use History Tobacco Use History - weight engineer: Tobacco Use History - weight engineer Tobacco Use Smoking Status Former smoker 08/06/24 18:49 Hx Tobacco Use Yes 08/06/24 02:06 Years Smoking Packs Smoked per Day Smoking Cessation Date was No - quit smoking greater 08/06/24 02:06 within the last 15 years than 15 years ago Hx Smoking Cessation Date 08/12/21 08/06/24 02:06 Hx Smoking Cessation Counseling Hematologic Medial History Hematologic Hx - weight engineer: Hematologic Medical Hx - contact center professional Hx of Blood Transfusion No 08/06/24 02:06 Hx of Transfusion in last 3 No 08/06/24 02:06 Months Date of Last Transfusion (if within last 3 months) Ever experience any problems No 08/06/24 02:06 with transfusion(s)? Specify any problems Hx of Preganancy in last 3 N/A 08/06/24 02:06 Months Nurse Filling Out Transfusion MBAUTZ 08/06/24 02:06 & Questions: Date: 08/06/24 08/06/24 02:06 Time: 02:08/06/24 02:06 Patient unable to answer at this time (ie. confused, unrespo /Reproduction History /Reproductive History - weight engineer: /Reproductive Hx- weight engineer Hx Now Gestational Age (in weeks): EDC: Hx Hx Para Hx Section SAB Active Medications Active Medications: Current Medications Generic Name Dose Route Start Last Admin Trade Name Freq PRN Reason Stop Dose Admin Bupropion HCl 150 mg 08/06/24 22:00 08/11/24 10:12 Bupropion (Sr) 150 Mg Tablet.Sa PO Not Given BID AMRIT Cholestyramine Resin 4 gm 08/07/24 14:24 08/11/24 05:58 Cholestyramine/Sucrose 4 Gm/Packet PO Not Given BIDAC AMRIT Diltiazem HCl 120 mg 08/07/24 10:00 08/09/24 09:39 Diltiazem Cd 120 Mg Capsule PO 120 mg DAILY AMRIT Administration Protocol Glucagon 1 mg 08/06/24 02:04 Glucagon 1 Mg/Ml Syringe IM X1 PRN HYPOGLYCEMIA Protocol Hydralazine HCl 5 mg 08/06/24 02:04 Hydralazine 20 Mg/Ml Vial IV Q8H PRN PRN SBP GREATER THAN 160 Protocol Dextrose 250 mls @ 0 mls/hr 08/06/24 02:04 Dextrose 10%-Water IV .Q0M PRN HYPOGLYCEMIA Protocol As Directed Sodium Chloride 100 mls @ 15 mls/hr 08/06/24 02:18 IV .Q6H40M PRN Saline Flush Sodium Chloride 100 mls @ 15 mls/hr 08/06/24 02:18 IV .Q6H40M PRN Additional IVPB Infusion Ciprofloxacin 200 mg in 100 mls @ 100 mls/hr 08/09/24 10:00 08/11/24 10:14 Cipro IV 100 mls/hr Q12 AMRIT Administration Metronidazole 500 mg in 100 mls @ 100 mls/hr 08/09/24 09:03 08/11/24 06:57 Flagyl IV Infused Q8 AMRIT Infusion Lactated Ringer's 1,000 mls @ 200 mls/hr 08/09/24 16:15 08/11/24 05:58 IV 08/11/24 16:16 200 mls/hr .Q5H AMRIT Administration Insulin Glargine 35 unit 08/08/24 22:00 08/11/24 10:11 Insulin Glargine-Yfgn 100 Unit/Ml Pen SC Not Given BID AMRIT Insulin Human Lispro 0 unit 08/06/24 16:00 08/11/24 06:00 Insulin Lispro 100 Unit/Ml Insuln.Pen SC Not Given ACHS [facility] Protocol Lisinopril 2.5 mg 08/07/24 10:00 08/09/24 09:39 Lisinopril 2.5 Mg Tablet PO 2.5 mg DAILY AMRIT Administration Protocol Loperamide HCl 2 mg 08/08/24 22:00 08/11/24 05:57 Loperamide 2 Mg Capsule PO Not Given TID AMRIT Metoprolol Tartrate 75 mg 08/06/24 11:30 08/11/24 10:14 Metoprolol Tartrate 25 Mg Tablet PO 75 mg Q12H AMRIT Administration Morphine Sulfate 2 mg 08/06/24 02:04 Morphine 2 Mg/Ml Syringe IV Q4H PRN PRN Pain Score 6-10 Ondansetron HCl 4 mg 08/06/24 02:04 Ondansetron 4 Mg/2 Ml Vial IV Q6H PRN PRN NAUSEA/VOMITING Promethazine HCl 12.5 mg 08/06/24 02:04 Promethazine 25 Mg/Ml Syringe IM Q4H PRN PRN BREAKTHROUGH NAUSEA Psyllium Hydrophilic Mucilloid 1 packet 08/07/24 14:25 08/11/24 05:57 Psyllium 1 Packet PO Not Given TID AMRIT Sodium Chloride 10 - 40 ml 08/06/24 02:18 08/11/24 10:15 0.9% Saline Lock 10 Ml Syringe IV 10 ml UD PRN Administration SALINE FLUSH PFSH Medical History Wears glasses MRSA infection Insulin dependent diabetes mellitus Restless legs Former smoker CPAP (continuous positive airway pressure) dependence Sleep apnea History of echocardiogram Cardiology follow-up encounter History of atrial fibrillation Hx of colonic polyps Non-ischemic cardiomyopathy HFrEF (heart failure with reduced ejection fraction) Persistent atrial fibrillation assisted current use of anticoagulant Essential 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 Atrial fibrillation with rapid ventricular response MARIELLA (obstructive sleep apnea) Diabetes COPD (chronic obstructive pulmonary disease) Home Medications ?Medication ?Instructions ?Recorded ?Last Taken ?Type bupropion HCl 150 mg tablet,12 hr 150 mg PO BID antide pressant 08/14/21 05/23/22 History sustained-release metformin 1,000 mg tablet 1,000 mg PO BID dm 08/14/21 05/23/22 History lisinopril 2.5 mg tablet 2.5 mg PO DAILY 05/22/2204/05 History insulin glargine 100 unit/mL (3 30 unit subcut BID 09/04 Unknown History mL) subcutaneous pen (Lantus Solostar U-100 Insulin) diltiazem HCl 120 mg 120 mg PO DAILY #90 caps Unknown Rx capsule,extended release 24 hr spironolactone 25 mg tablet See Rx Instructions .Route 09/24/23 Unknown Rx .COMPLEX #30 tabs potassium chloride 10 mEq 10 meq PO DAILY #90 tabs 12/05 Unknown Rx tablet,extended release furosemide 40 mg tablet 80 mg PO DAILY 08/05/24 Unkn own History metoprolol tartrate 75 mg tablet 75 mg PO Q12H 5 Unknown History warfarin 2 mg tablet 2 mg PO WETH 08/05/24 Unknow n History warfarin 5 mg tablet 10 mg PO DAILY 08/05/24 Unkn own History Allergy/AdvReac Type Severity Reaction Status Date / Time Penicillins Allergy PT UNSURE Verified 08/05/24 20:31 OF REACTION Family History Other COPD (chronic obstructive pulmonary disease) Colon cancer Heart disease Lung cancer Testicular cancer Surgical History History of cardiac catheterization Status post cryoablation of arrhythmia (03/01/22) History of cardioversion (10/27/21) Bunion H/O hernia repair Social History Smoking Status: Former smoker alcohol intake: never substance use type: does not use caffeine: Yes Type: coffee Number of servings: 1 Review of Systems (Anesthesia) ROS Narrative System reviewed and no additional complaints, except as documented. 08/11/24 1140 <Electronically signed by Jayant Archuleta MD > Date _ Jayant Archuleta MD Cosigner Signature: Date CC: ~ Signed [facility] Work Phone: [phone] Consult note [facility] Medical Records Department [address] [place] [id number] Anesthesia Postop Eval I 08/11/24 1254 MR#: [id number] Acct: [id number] Name: PEDRO KARIMI Rep #:[id number] : 1965 58 From: Alexx Reyes PCP: Dr. Margot Mai MD Status:ADM IN Y Race: C Location: [place] [address] Anesthesia: Postop Eval I Current Vital Signs Temperature: 97 F Pulse Rate: 62 Blood Pressure: 103/48 Respiratory Rate: 16 Pulse Ox: 98 Oxygen Delivery Method: Room Air Assessment Airway patent: Yes Spontaneous unlabored respirations: Yes Mental status: Awake and Calm nausea: No Vomiting: No Anesthesia Complication: No Fluid Hydration Crystalloid volume administer (ml): 90 Total IV fluid infused: 90 Progress Note Anesthesia document: Postop Eval 1 completed: Yes 08/11/24 1256 > Date _ Alexx Carter Signature: Date CC: ~ Signed [facility]03-31-2025 Procedure note [facility] Medical Records Department [address] [place] [address] Colonoscopy Report MR#: [id number] Acct: [id number] Name: PEDRO KRAIMI Rep #:[id number] : 1965 58 From: Bipin Brito DO PCP: Dr. Margot Mai MD Status:ADM IN Patient Name: Pedro Karimi Procedure Date: 08/11/2024 12:12 PM Date of : 1965 Age: 58 Procedure: Colonoscopy Indications: Clinically significant diarrhea of unexplained origin Providers: Bipin Brito DO Medicines: Monitored Anesthesia Care Patient Profile: This is a 58 year old male. Refer to note in patient chart for documentation of history and physical. Patient has symptoms of acute abdominal cramping and acute epigastric abdominal pain. Last Colonoscopy: 1 year ago. Complications: No immediate complications. Procedure: Pre-Anesthesia Assessment: - Prior to the procedure, a History and Physical was performed, and patient medications and allergies were reviewed. The patient is competent. The risks and benefits of the procedure and the sedation options and risks were discussed with the patient. All questions were answered and informed consent was obtained. Patient identification and proposed procedure were verified by the physician in the pre-procedure area. Mental Status Examination: alert and oriented. Airway Examination: normal oropharyngeal airway and neck mobility. Respiratory Examination: clear to auscultation. CV Examination: normal. ASA Grade Assessment: II - A patient with mild systemic disease. After reviewing the risks and benefits, the patient was deemed in satisfactory condition to undergo the procedure. The anesthesia plan was to use monitored anesthesia care (MAC). Immediately prior to administration of medications, the patient was re-assessed for adequacy to receive sedatives. The heart rate, respiratory rate, oxygen saturations, blood pressure, adequacy of pulmonary ventilation, and response to care were monitored throughout the procedure. The physical status of the patient was re-assessed after the procedure. After I obtained informed consent, the scope was passed under direct vision. Throughout the procedure, the patient's blood pressure, pulse, and oxygen saturations were monitored continuously. The Colonoscope was introduced through the anus and advanced to the terminal ileum. The colonoscopy was performed without difficulty. The patient tolerated the procedure well. The quality of the bowel preparation was adequate. The terminal ileum, ileocecal valve, appendiceal orifice, and rectum were photographed. Scope In: 12:14:13 PM Scope Withdrawal Time 0 hours 19 minutes 25 seconds Scope Out: 12:42:18 PM Total Procedure Duration Time 0 hours 28 minutes 5 seconds Findings: The perianal and digital rectal examinations were normal. Multiple small and large-mouthed diverticula were found in the entire colon. Two sessile polyps were found in the transverse colon and ascending colon. The polyps were 1 to 2 mm in size. These polyps were removed with a hot snare. Resection and retrieval were complete. Verification of patient identification for the specimen was done. Estimated blood loss was minimal. An area of mildly congested mucosa was found in the entire colon. Biopsies were taken with a cold forceps for histology. Verification of patient identification for the specimen was done. Estimated blood loss was minimal. Patchy mild inflammation characterized by erythema was found in the distal ileum and in the terminal ileum. Biopsies were taken with a cold forceps for histology. Verification of patient identification for the specimen was done. Estimated blood loss was minimal. Impression: - Diverticulosis in the entire examined colon. - Two 1 to 2 mm polyps in the transverse colon and in the ascending colon, removed with a hot snare. Resected and retrieved. - Congested mucosa in the entire examined colon. Biopsied. - Mild inflammation was found in the ileum secondary to ileitis. Biopsied. Recommendation: - [facility]. - Diabetic (ADA) diet. - Continue present medications. - Await pathology results. - Repeat colonoscopy in 1 year for surveillance. Procedure Code(s): --- Professional --- 97964, Colonoscopy, flexible; with removal of tumor(s), polyp(s), or other lesion(s) by snare technique 30095, 59, Colonoscopy, flexible; with biopsy, single or multiple CPT copyright 2021 [employer]. All rights reserved. The codes documented in this report are preliminary and upon front office developer review may be revised to meet current compliance requirements. Bipin Brito DO 08/11/2024 12:54:42 PM This report has been signed electronically. Number of Addenda: 0 Note Initiated On: 08/11/2024 12:12 PM 08/11/24 1254 Date _ Bipin Brito DO Cosigner Signature: Date (if indicated) CC: Dr. Margot Mai MD; Bipin Brito DO ~ Date Dictated: 08/11/24 1212 Date Transcribed: Tour Director: RF Signed [facility]03-31-2025 Procedure note [facility] Medical Records Department [address] [place] [address] [place] [address] Operative Report - CC Letter MR#: [id number] Acct: [id number] Name: PEDRO KARIMI Rep #:[id number] : 1965 58 From: Bipin Brito DO PCP: Dr. Margot Mai MD Status:ADM IN 08/11/2024 Margot Mai [address] [place] [address] Re : Colonoscopy procedure for Pedro Karimi Dear Dr. Mai This procedure was performed on Sunday, August 11, 2024. My impressions and recommendations are as follows: Impressions : - Diverticulosis in the entire examined colon. - Two 1 to 2 mm polyps in the transverse colon and in the ascending colon, removed with a hot snare. Resected and retrieved. - Congested mucosa in the entire examined colon. Biopsied. - Mild inflammation was found in the ileum secondary to ileitis. Biopsied. Recommendations : - [facility]. - Diabetic (ADA) diet. - Continue present medications. - Await pathology results. - Repeat colonoscopy in 1 year for surveillance. My findings are described in the full procedure note, which is enclosed. If I can be of further assistance, please feel free to contact me at . Sincerely, Bipin Brito DO 08/11/2024 12:54:42 PM This report has been signed electronically. 08/11/24 1254 Date _ Bipin Brito DO Cosigner Signature: Date (if indicated) CC: Dr. Yfn Mccarthy MD; Dr. Yfn Dietz DO; Dr. Margot Mai MD; Dr. Annetta Mar DO ~ Date Dictated: 08/11/24 1212 Date Transcribed: Tour Director: RF Signed [facility]03-31-2025 Procedure note [facility] Medical Records Department [address] [place] [address] EGD Report MR#: [id number] Acct: [id number] Name: PEDRO KARIMI Rep #:[id number] : 1965 58 From: Bipin Brito DO PCP: Dr. Margot Mai MD Status:ADM IN Patient Name: Pedro Karimi Procedure Date: 08/11/2024 11:22 AM Date of : 1965 Age: 58 Procedure: Upper GI endoscopy Indications: Epigastric abdominal pain Providers: Bipin Brito DO Medicines: Monitored Anesthesia Care Patient Profile: This is a 58 year old male. Refer to note in patient chart for documentation of history and physical. Patient has symptoms of acute abdominal cramping and acute epigastric abdominal pain. Complications: No immediate complications. Procedure: Pre-Anesthesia Assessment: - Prior to the procedure, a History and Physical was performed, and patient medications and allergies were reviewed. The patient is competent. The risks and benefits of the procedure and the sedation options and risks were discussed with the patient. All questions were answered and informed consent was obtained. Patient identification and proposed procedure were verified by the physician in the pre-procedure area. Mental Status Examination: alert and oriented. Airway Examination: normal oropharyngeal airway and neck mobility. Respiratory Examination: clear to auscultation. CV Examination: normal. ASA Grade Assessment: II - A patient with mild systemic disease. After reviewing the risks and benefits, the patient was deemed in satisfactory condition to undergo the procedure. The anesthesia plan was to use monitored anesthesia care (MAC). Immediately prior to administration of medications, the patient was re-assessed for adequacy to receive sedatives. The heart rate, respiratory rate, oxygen saturations, blood pressure, adequacy of pulmonary ventilation, and response to care were monitored throughout the procedure. The physical status of the patient was re-assessed after the procedure. After obtaining informed consent, the endoscope was passed under direct vision. Throughout the procedure, the patient's blood pressure, pulse, and oxygen saturations were monitored continuously. The Colonoscope was introduced through the mouth, and advanced to the fourth part of the duodenum. Small bowel enteroscopy was deemed necessary. The upper GI endoscopy was accomplished without difficulty. The patient tolerated the procedure well. Scope In: 12:06:02 PM Scope Out: 12:12:41 PM Total Procedure Duration Time 0 hours 6 minutes 39 seconds Findings: LA Grade B (one or more mucosal breaks greater than 5 mm, not extending between the tops of two mucosal folds) esophagitis with no bleeding was found 36 to 38 cm from the incisors. Biopsies were taken with a cold forceps for histology. Verification of patient identification for the specimen was done. Estimated blood loss was minimal. Localized moderate inflammation characterized by erosions and erythema was found in the gastric body. Biopsies were taken with a cold forceps for histology. Verification of patient identification for the specimen was done. Estimated blood loss was minimal. Biopsies were taken with a cold forceps for Helicobacter pylori testing. Verification of patient identification for the specimen was done. Estimated blood loss was minimal. Patchy mild inflammation characterized by erythema was found in the first portion of the duodenum, in the second portion of the duodenum, in the third portion of the duodenum and in the fourth portion of the duodenum. Biopsies were taken with a cold forceps for histology. Verification of patient identification for the specimen was done. Estimated blood loss was minimal. Impression: - LA Grade B erosive esophagitis with no bleeding. Biopsied. - Acute gastritis. Biopsied. - Erosive duodenitis. Biopsied. Recommendation: - [facility]. - Resume previous diet. - Continue present medications. - Await pathology results. Procedure Code(s): --- Professional --- 43608, Small intestinal endoscopy, enteroscopy beyond second portion of duodenum, not including ileum; with biopsy, single or multiple CPT copyright 2021 [employer]. All rights reserved. The codes documented in this report are preliminary and upon front office developer review may be revised to meet current compliance requirements. Bipin Brito DO 08/11/2024 12:50:41 PM This report has been signed electronically. Number of Addenda: 0 Note Initiated On: 08/11/2024 11:22 AM 08/11/24 1250 Date _ Bipin Brito DO Cosigner Signature: Date (if indicated) CC: Dr. Margot Mai MD; Bipin Brito DO ~ Date Dictated: 08/11/24 1122 Date Transcribed: Tour Director: RF Signed [facility]03-31-2025 Procedure note [facility] Medical Records Department [address] [place] [address] Operative Report - CC Letter MR#: [id number] Acct: [id number] Name: PEDRO KARIMI Rep #:[id number] : 1965 58 From: Bipin Brito DO PCP: Dr. Margot Mai MD Status:ADM IN 08/11/2024 Margot Mai [address] [place] [address] Re : Upper GI endoscopy procedure for Pedro Karimi Dear Dr. Mai This procedure was performed on Sunday, August 11, 2024. My impressions and recommendations are as follows: Impressions : - LA Grade B erosive esophagitis with no bleeding. Biopsied. - Acute gastritis. Biopsied. - Erosive duodenitis. Biopsied. Recommendations : - [facility]. - Resume previous diet. - Continue present medications. - Await pathology results. My findings are described in the full procedure note, which is enclosed. If I can be of further assistance, please feel free to contact me at . Sincerely, Bipin Brito DO 08/11/2024 12:50:41 PM This report has been signed electronically. 08/11/24 1250 Date _ Bipin Brito DO Cosigner Signature: Date (if indicated) CC: Dr. Yfn Mccarthy MD; Dr. Yfn Dietz DO; Dr. Margot Mai MD; Dr. Annetta Mar DO ~ Date Dictated: 08/11/24 1122 Date Transcribed: Tour Director: RF Signed [facility]03-31-[address] [facility] Medical Records Department [address] [place] [address] Progress Note 08/11/24 1153 MR#: [id number] Acct: [id number] Name: PEDRO KARIMI Rep #:[id number] : 1965 58 From: Bipin Brito DO PCP: Dr. Margot Mai MD Status:ADM IN Location: [place] [address] Progress Note The patient prep for colonoscopy and upper endoscopy today. He is not having abdominal pain. All questions concerns answered. Physical Exam Const alert, oriented x3, no apparent distress and well nourished; Negative for average body habitus or healthy appearing Constitutional Narrative: Morbidly obese, white male, sitting up in a chair at the bedside, appears well, nontoxic appearing,watching television General Appearance: cooperative HEENT normocephalic, head/scalp atraumatic, hearing grossly normal bilaterally and moist oral mucous membranes HEENT Narrative: Mallampati 4, no thrush Eyes conjunctivae normal Eyes Narrative: No scleral icterus Neck supple Neck Narrative: Neck is short and thick and trachea is midline Resp normal respiratory effort, no retractions, no use of accessory muscles and clearto auscultation bilaterally Cardio regular rate, regular rhythm, S1 normal heart sound, S2 normal heart sound, no murmurs, no rub, no gallops and no clicks GI normal to inspection, nondistended, normoactive bowel sounds, soft to palpation and non-tender Extremity no clubbing, cyanosis or edema Extremity Narrative: Pedal and radial pulses are 2+ Skin skin turgor normal, no jaundice, no petechiae and no mottling Neuro oriented x3, moves all extremities and no focal motor deficits Speech: speech normal Psych affect normal Psych Narrative: Very pleasant, interacts appropriately, eye contact is good, seems a bit less frustrated today Assessment & Plan Assessment/Plan (1) Bloody diarrhea: (2) Nausea and vomiting: QUALIFIERS: Vomiting type: bilious vomiting Qualified Code(s): R11.14 - Bilious vomiting (3) Food poisoning: (4) Supratherapeutic INR: (5) Paroxysmal atrial fibrillation: (6) Obesity (BMI 30-39.9): (7) MARIELLA (obstructive sleep apnea): PLAN: Plan 58 yo with Bloody Diarrhea with Nausea and Vomiting causing Bilious Emesis initially triggered by suspected Food Poisoning with CT scan of abdomen/pelvis Differential Diagnosis- Inflammatory bowel disease, Microscopic colitis, IBS with diarrhea. PLAN: Persistent intractable diarrhea -Etiology remains unclear at this time -Plan is for EGD and colonoscopy tomorrow without the diagnosis -C. difficile is negative -Enteric panel is negative -Lactoferrin is negative -Sed rate and CRP are both unremarkable -Continue cholestyramine and Metamucil -Continue Imodium 2 mg p.o. 3 times daily per GI -White count remains elevated but bandemia seems to be improving -Blood cultures pending -Continue Flagyl and Cipro for now-->Cipro is renally dosed -He will get an egd and colonoscopy on 08/11/2024 today Visit Charges Inpatient E&M: 90989 Subs Hosp L3 08/11/24 1156 Bipin Friend DO Cosigner Signature (if applicable): CC: ~ Signed [facility]03-31-2025 Consult note [facility] Medical Records Department [address] [place] [address] Pre-Anesthesia Evaluation 08/11/24 1139 MR#: [id number] Acct: [id number] Name: PEDRO KARIMI Rep #:[id number] : 1965 58 From: Jayant Archuleta MD PCP: Dr. Margot Mai MD Status:ADM IN Y Race: C Location: [place] [address] ASA Classification* ASA Classification ASA Classification: 3 Assessment & Plan Anesthesia* Anesthesia Assessment Anesthesia Assessment: Discussed sedation and/or anesthesia options, risks, benefits, and alternatives with patient/parents/legal guardian/POA. Questions invited. The patient/parents/legal guardian/POA seems to understand and agrees to proceedwith anesthesia plan. Reviewed the physical assessment, medical history, allergy history and patient home medications list prior to surgery/procedure/anesthetic and documented any changes. Performed airway and anesthesia risk assessments. Anesthesia Type Anesthesia Type: MAC Anesthesia Focused Assessment* Temperature: 98.0 F Pulse Rate: 62 Blood Pressure: 111/67 Respiratory Rate: 18 Pulse Ox: 99 Airway Assessment Mouth opens: >3 cm Mallampati Score: II Focused Labs Anesthesia Preop lab: CBC WBC 15.5 K/mm3 (4.4-11.0) H 08/11/24 04:27 5 RBC 4.78 M/mm3 (4.6-6.2) 08/11/24 04:27 08/11/24 Hgb 13.3 g/dL (13.0-16.5) 08/11/24 04:27 08/11/24 Hct 38.6 % (40-54) L 08/11/24 04:27 08/11/24 Plt Count 198 K/mm3 (150-450) 08/11/24 04:27 08/11/24 CHEMISTRY Potassium 3.4 mmol/L (3.3-5.1) 08/11/24 04:27 08/11/24 Sodium 134 mmol/L (133-145) 08/11/24 04:27 08/11/24 Magnesium 1.8 mg/dL (1.5-2.2) 08/10/24 04:47 08/10/24 Phosphorus 5.2 mg/dL (2.7-4.5) H 08/10/24 04:47 08/10/24 BUN 19 mg/dL (4-19) 08/11/24 04:27 08/11/24 Creatinine 1.12 mg/dL (0.70-1.20) 08/11/24 04:27 08/11/24 Glucose 77 mg/dL (70-99) 08/11/24 04:27 08/11/24 POC Glucose 158 mg/dL (74-106) H 08/10/24 21:57 08/10/24 TSH 4.200 uIU/mL (0.300-4.200) 08/05/24 21:20 /10/05 COAG PT 43.9 SECONDS (11.7-14.9) H 08/10/24 04:47 07/14 Pre-Assessment Diagnosis/Proposed Procedure Planned Operative Procedure(s): EGD, colonoscopy. Anesthesia History Anesthesia History - weight engineer: Anesthesia History - weight engineer Hx Hospitalization Yes: [facility] 03/0405/22/22 14:12 Any Problems With Anesthesia No 05/22/22 14:12 Cholinesterase deficiency No 05/22/22 14:12 You/Your Family Experience No 05/22/22 14:12 fever (hyperthermia) with Relationship Recent Exposure to Contagious No 05/24/22 08:47 Disease Does patient have nerve No 05/22/22 14:12 stimulator Patient instructed to have device shut off --Does patient have Pacemaker or ICD? When Was Last Pacemaker Check QUESTION #4 FULL TEXT: You/Your Family Experience fever (hyperthermia) with Anesthesia Last Oral Intake Last Oral intake: Last Oral Intake NPO since Meds taken in AM with sips of water? Meds patient instructed to take am of surgery PONV PONV - weight engineer: PONV - weight engineer Female HX of Motion Sickness HX of N/V After Surgery Non-Smoker Duration of Surgery greater than 60 minutes Number of Risk Factors PONV Score Height & Weight Height & Weight: Anesthesia: Height & Weight Height 6 ft 2 in 08/06/24 16:18 Weight: 136.1 kg 08/11/24 06:00 Body Mass Index (BMI) 38.5 08/11/24 06:00 Respiratory Assessment Respiratory Assessment - weight engineer: Respiratory Tract Infection Hx - weight engineer Hx Respiratory Tract Infection No 05/22/22 14:12 STOP Sleep Apnea STOP Sleep Apnea - weight engineer: STOP Sleep Apnea - weight engineer Hx Hypertension Yes 08/06/24 02:06 Hx Sleep Apnea Yes 08/06/24 02:06 CPAP Yes 08/06/24 02:06 BIPAP No 08/06/24 02:06 Do you snore loudly (louder than talking or can be heard Do you often feel tired/ fatigued/ sleepy during daytime? Has anyone observed you stop breathing during sleep? STOP Results Positive 08/06/24 02:06 QUESTION #5 FULL TEXT : Do you snore loudly (louder than talking or can be heard through closeddoors)? Tobacco Use History Tobacco Use History - weight engineer: Tobacco Use History - weight engineer Tobacco Use Smoking Status Former smoker 08/06/24 18:49 Hx Tobacco Use Yes 08/06/24 02:06 Years Smoking Packs Smoked per Day Smoking Cessation Date was No - quit smoking greater 08/06/24 02:06 within the last 15 years than 15 years ago Hx Smoking Cessation Date 08/12/21 08/06/24 02:06 Hx Smoking Cessation Counseling Hematologic Medial History Hematologic Hx - weight engineer: Hematologic Medical Hx - contact center professional Hx of Blood Transfusion No 08/06/24 02:06 Hx of Transfusion in last 3 No 08/06/24 02:06 Months Date of Last Transfusion (if within last 3 months) Ever experience any problems No 08/06/24 02:06 with transfusion(s)? Specify any problems Hx of Preganancy in last 3 N/A 08/06/24 02:06 Months Nurse Filling Out Transfusion ANKUR 08/06/24 02:06 & Questions: Date: 08/06/24 08/06/24 02:06 Time: :08/06/24 02:06 Patient unable to answer at this time (ie. confused, unrespo /Reproduction History /Reproductive History - weight engineer: /Reproductive Hx- weight engineer Hx Now Gestational Age (in weeks): EDC: Hx Hx Para Hx Section SAB Active Medications Active Medications: Current Medications Generic Name Dose Route Start Last Admin Trade Name Freq PRN Reason Stop Dose Admin Bupropion HCl 150 mg 08/06/24 22:00 08/11/24 10:12 Bupropion (Sr) 150 Mg Tablet.Sa PO Not Given BID AMRIT Cholestyramine Resin 4 gm 08/07/24 14:24 08/11/24 05:58 Cholestyramine/Sucrose 4 Gm/Packet PO Not Given BIDAC [facility]RIT Diltiazem HCl 120 mg 08/07/24 10:00 08/09/24 09:39 Diltiazem Cd 120 Mg Capsule PO 120 mg DAILY AMRIT Administration Protocol Glucagon 1 mg 08/06/24 02:04 Glucagon 1 Mg/Ml Syringe IM X1 PRN HYPOGLYCEMIA Protocol Hydralazine HCl 5 mg 08/06/24 02:04 Hydralazine 20 Mg/Ml Vial IV Q8H PRN PRN SBP GREATER THAN 160 Protocol Dextrose 250 mls @ 0 mls/hr 08/06/24 02:04 Dextrose 10%-Water IV .Q0M PRN HYPOGLYCEMIA Protocol As Directed Sodium Chloride 100 mls @ 15 mls/hr 08/06/24 02:18 IV .Q6H40M PRN Saline Flush Sodium Chloride 100 mls @ 15 mls/hr 08/06/24 02:18 IV .Q6H40M PRN Additional IVPB Infusion Ciprofloxacin 200 mg in 100 mls @ 100 mls/hr 08/09/24 10:00 08/11/24 10:14 Cipro IV 100 mls/hr Q12 AMRIT Administration Metronidazole 500 mg in 100 mls @ 100 mls/hr 08/09/24 09:03 08/11/24 06:57 Flagyl IV Infused Q8 AMRIT Infusion Lactated Ringer's 1,000 mls @ 200 mls/hr 08/09/24 16:15 08/11/24 05:58 IV 08/11/24 16:16 200 mls/hr .Q5H [facility]RIT Administration Insulin Glargine 35 unit 08/08/24 22:00 08/11/24 10:11 Insulin Glargine-Yfgn 100 Unit/Ml Pen SC Not Given BID [facility] Insulin Human Lispro 0 unit 08/06/24 16:00 08/11/24 06:00 Insulin Lispro 100 Unit/Ml Insuln.Pen SC Not Given ACHS [facility] Protocol Lisinopril 2.5 mg 08/07/24 10:00 08/09/24 09:39 Lisinopril 2.5 Mg Tablet PO 2.5 mg DAILY [facility] Administration Protocol Loperamide HCl 2 mg 08/08/24 22:00 08/11/24 05:57 Loperamide 2 Mg Capsule PO Not Given TID [facility] Metoprolol Tartrate 75 mg 08/06/24 11:30 08/11/24 10:14 Metoprolol Tartrate 25 Mg Tablet PO 75 mg Q12H [facility] Administration Morphine Sulfate 2 mg 08/06/24 02:04 Morphine 2 Mg/Ml Syringe IV Q4H PRN PRN Pain Score 6-10 Ondansetron HCl 4 mg 08/06/24 02:04 Ondansetron 4 Mg/2 Ml Vial IV Q6H PRN PRN NAUSEA/VOMITING Promethazine HCl 12.5 mg 08/06/24 02:04 Promethazine 25 Mg/Ml Syringe IM Q4H PRN PRN BREAKTHROUGH NAUSEA Psyllium Hydrophilic Mucilloid 1 packet 08/07/24 14:25 08/11/24 05:57 Psyllium 1 Packet PO Not Given TID [facility] Sodium Chloride 10 - 40 ml 08/06/24 02:18 08/11/24 10:15 0.9% Saline Lock 10 Ml Syringe IV 10 ml UD PRN Administration SALINE FLUSH PFS Medical History Wears glasses MRSA infection Insulin dependent diabetes mellitus Restless legs Former smoker CPAP (continuous positive airway pressure) dependence Sleep apnea History of echocardiogram Cardiology follow-up encounter History of atrial fibrillation Hx of colonic polyps Non-ischemic cardiomyopathy HFrEF (heart failure with reduced ejection fraction) 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 Essential 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 Atrial fibrillation with rapid ventricular response MARIELLA (obstructive sleep apnea) Diabetes COPD (chronic obstructive pulmonary disease) Home Medications ?Medication ?Instructions ?Recorded ?Last Taken ?Type bupropion HCl 150 mg tablet,12 hr 150 mg PO BID antide pressant 08/14/21 05/23/22 History sustained-release metformin 1,000 mg tablet 1,000 mg PO BID dm 08/14/21 05/23/22 History lisinopril 2.5 mg tablet 2.5 mg PO DAILY 05/22/2204/05 History insulin glargine 100 unit/mL (3 30 unit subcut BID 09/04 Unknown History mL) subcutaneous pen (Lantus Solostar U-100 Insulin) diltiazem HCl 120 mg 120 mg PO DAILY #90 caps Unknown Rx capsule,extended release 24 hr spironolactone 25 mg tablet See Rx Instructions .Route 09/24/23 Unknown Rx .COMPLEX #30 tabs potassium chloride 10 mEq 10 meq PO DAILY #90 tabs 12/05 Unknown Rx tablet,extended release furosemide 40 mg tablet 80 mg PO DAILY 08/05/24 Unkn own History metoprolol tartrate 75 mg tablet 75 mg PO Q12H 5 Unknown History warfarin 2 mg tablet 2 mg PO WETH 08/05/24 Unknow n History warfarin 5 mg tablet 10 mg PO DAILY 08/05/24 Unkn own History Allergy/AdvReac Type Severity Reaction Status Date / Time Penicillins Allergy PT UNSURE Verified 08/05/24 20:31 OF REACTION Family History Other COPD (chronic obstructive pulmonary disease) Colon cancer Heart disease Lung cancer Testicular cancer Surgical History History of cardiac catheterization Status post cryoablation of arrhythmia (03/01/22) History of cardioversion (10/27/21) Bunion H/O hernia repair Social History Smoking Status: Former smoker alcohol intake: never substance use type: does not use caffeine: Yes Type: coffee Number of servings: 1 Review of Systems (Anesthesia) ROS Narrative System reviewed and no additional complaints, except as documented. 08/11/24 1140 > Date _ Jayant Rickignnas Signature: Date CC: ~ Signed [facility]03-31-2025 Radiology Diagnostic study note [facility] Imaging Services [address] [place], [place] [address] Kidney and Bladder MR#: [id number] Acct: [id number] Name: PEDRO KARIMI Rep #: [id number] : 1965 M 58 From: Vincent Luna MD PCP: Dr. Margot Mai MD Status: ADM IN Study:Kidney and Bladder Date of Exam: 0 08/11/24 Exam# [id number] Ordering Dr: Araceli Mar DO PROCEDURE: KIDNEY AND BLADDER 08/11/2024 REASON FOR EXAM: FRANSISCA TECHNIQUE: Bilateral renal ultrasound. 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 [place]: No hydronephrosis seen. Cysts or Masses: No cysts or large solid renal masses. RIGHT Kidney Size: 14.4 cm x 5.9 cm x 4.5 cm Cortical Thickness (if discernible): 2.1 cm (>6mm is normal) LEFT Kidney Size: 10.9 cm x 5.4 cm x 3.5 cm Cortical Thickness (if discernible): 1.5 cm (>6mm is normal) The urinary bladder is only partially filled. There is thickening of the urinary bladder wall most likely due to incomplete distention. US/Kidney and Bladder IMPRESSION: Horseshoe kidney. No evidence of hydronephrosis. Partial distention of the urinary bladder with mild bladder wall thickening. Reading [facility] CC: Dr. Margot Mai MD; Dr. Annetta Mar DO ~ Tour Director: Signed [facility]03-30-2025 Progress note Author Annetta Mar [facility] Note Date/Time August 10, 2024 12: 46pm [facility] Medical Records Department [address] [place] [address] Progress Note - Hospitalist 08/10/24 0843 MR#: [id number] Acct: [id number] Name: PEDRO KARIMI Rep #:[id number] : 1965 58 From: Annetta Mar DO PCP: Dr. Margot Mai MD Status:ADM IN Location: [place] [address] Reason for Visit Reason for Visit: Bright red blood per rectum/diarrhea Subjective Subjective Patient states he is feeling fine. Denies any significant abdominal pain no nausea or vomiting. Eating well. No fevers no chills. Blood pressure was low this morning. Creatinine is up again despite bolus and IV fluids through the night. It had gone down and then trended back up again. Alterations made in medications and further fluid boluses given. Plan is to obtain EGD and colonoscopy tomorrow Objective Data Objective Data Vital Signs: Vital Signs Temp Pulse Resp BP Pulse Ox O2 Del Method 97.5 F L 18 L 18 84/52 L 99 Room Air 08/10/24 08:32 08/10/24 08:32 08/10/24 08:32 08/10/24 08:32 08/10/24 08:32 08/10/24 08:32 Oxygen Delivery Method Room Air Weight: 132.449 kg Body Mass Index (BMI) 37.5 Intake & Output: Intake and Output for Last 24 Hours 08/08/24 08/09/24 08/10/24 23:59 23:59 23:59 Intake Total 1000 / 1000 3595.0 / 3595.0 1200 / 1200 Balance 1000 / 1000 3595.0 / 3595.0 1200 / 1200 Lab / Micro Data 08/10/24 04:47 08/10/24 04:47 Labs: Laboratory Results - last 24 hr 08/09/24 06:35: Diff Path Review September foll, PT 49.0 H, INR 5.2 H* 08/09/24 11:46: POC Glucose 179 H 08/09/24 14:15: Sodium 130 L, Potassium 3.5, Chloride 99, Carbon Dioxide 17.5 L,Anion Gap 13, BUN 26 H, Creatinine 1.73 H, Estim Creat Clear Calc 67.35, Est GFR(MDRD) Non-Af 45 L, BUN/Creatinine Ratio 15.1, Glucose 193 H, Calcium 8.2 08/09/24 16:08: POC Glucose 177 H 08/09/24 21:35: POC Glucose 233 H 08/10/24 04:47: PT 43.9 H, INR 4.5 H*, Sodium 131 L, Potassium 3.0 L, Chloride 101, Carbon Dioxide 18.8 L, Anion Gap 12, BUN 31 H, Creatinine 1.99 H, Estim Creat Clear Calc 58.55, Est GFR (MDRD) Non-Af 38 L, BUN/Creatinine Ratio 15.8, Glucose 135 H, Calcium 7.8, Phosphorus 5.2 H, Magnesium 1.8, Total Bilirubin 0.25, AST 9, ALT 5, Alkaline Phosphatase 71, Total Protein 5.0 L, Albumin 2.9 L,Globulin 2.2, Albumin/Globulin Ratio 1.3 Micro: Microbiology 08/06/24 03:00 Stool Enteric Bacteriology - Final 08/06/24 03:00 Stool Stool Lactoferrin - Final 08/06/24 03:00 Stool Clostridioides difficile (PCR) - Final 08/05/24 21:24 Stool Stool Occult Blood (EDUARD) - Final Occult Blood Positive Physical Exam Const alert, oriented x3, no apparent distress and well nourished; Negative for average body habitus or healthy appearing Constitutional Narrative: Morbidly obese, white male, sitting up in a chair at the bedside, appears well, nontoxic appearing, watching television General Appearance: cooperative HEENT normocephalic, head/scalp atraumatic, hearing grossly normal bilaterally and moist oral mucous membranes HEENT Narrative: Mallampati 4, no thrush Eyes conjunctivae normal Eyes Narrative: No scleral icterus Neck supple Neck Narrative: Neck is short and thick and trachea is midline Resp normal respiratory effort, no retractions, no use of accessory muscles and clearto auscultation bilaterally Cardio regular rate, regular rhythm, S1 normal heart sound, S2 normal heart sound, no murmurs, no rub, no gallops and no clicks GI normal to inspection, nondistended, normoactive bowel sounds, soft to palpation and non-tender Extremity no clubbing, cyanosis or edema Extremity Narrative: Pedal and radial pulses are 2+ Skin skin turgor normal, no jaundice, no petechiae and no mottling Neuro oriented x3, moves all extremities and no focal motor deficits Speech: speech normal Psych affect normal Psych Narrative: Very pleasant, interacts appropriately, eye contact is good, seems a bit less frustrated today Assessment & Plan Assessment/Plan (1) Bloody diarrhea: (2) Nausea and vomiting: QUALIFIERS: Vomiting type: bilious vomiting Qualified Code(s): R11.14 - Bilious vomiting (3) Supratherapeutic INR: (4) Paroxysmal atrial fibrillation: (5) Obesity (BMI 30-39.9): (6) MARIELLA (obstructive sleep apnea): PLAN: Plan Persistent intractable diarrhea -Etiology remains unclear at this time -Plan is for EGD and colonoscopy tomorrow without the diagnosis -C. difficile is negative -Enteric panel is negative -Lactoferrin is negative -Sed rate and CRP are both unremarkable -Continue cholestyramine and Metamucil -Continue Imodium 2 mg p.o. 3 times daily per GI -White count remains elevated but bandemia seems to be improving -Blood cultures pending -Continue Flagyl and Cipro for now-->Cipro is renally dosed -Has outpatient colonoscopy pending for 08/18/2024 there is no acute reason to perform colonoscopy at this time. -GI following and plan is for scopes tomorrow Bright red blood per rectum -Resolved and hemoglobin stable Supratherapeutic INR -INR is trending down and now 4.5 from a peak of 8.0 -1 dose of vitamin K was given on 08/07/2024 5 mg IV -Continue to hold Coumadin -Repeat INR in a.m. -No bleeding at this time Hypokalemia -60 mill colons p.o. potassium Can repeat lab in a.m. -magnesium is within normal limits FRANSISCA -Dehydration likely related to profuse diarrhea and lack of sufficient oral intake - we did give him 2 L of IV fluids yesterday and his creatinine trended down andwill ask them on LR at 125 cc/h but his creatinine worsened again this morning. -2 more liters given today and will run fluids with LR at 200 cc/h to follow continuously -Check retroperitoneal ultrasound -Patient states urine output has been fine -Check urine lites with urine sodium and urine creatinine -Avoid nephrotoxins -Hold most of his antihypertensives as his blood pressure has been trending down Metabolic acidosis -Mild -Suspect related to FRANSISCA and ongoing diarrhea -Repeat lab in a.m. DM-2 -Continue basal insulin at 35 units -Fasting sugar 135 -Continue SSI -Continue Accu-Cheks as ordered -Hold home oral agents -Cardiac/carb controlled diet Paroxysmal atrial fibrillation/flutter -Previous failed DCCV in 2021 -History of cryoablation in 2021 -Hold diltiazem and continue metoprolol with hold parameters -Continue to hold Coumadin due to supratherapeutic INR -Currently in sinus rhythm Essential 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 -Hold home diltiazem -Hold home Lasix -Hold home lisinopril -Continue home metoprolol with hold parameters -Hold home Aldactone Nonischemic cardiomyopathy -EF has improved -This was suspected to be tachycardia mediated -Continue goal-directed therapy as noted History of tobacco abuse -Remote -Encouraged ongoing cessation History of chronic diastolic heart failure with preserved ejection fraction -Continue home diuretics -Remains euvolemic Restless leg syndrome -Stable Depression -Continue home Wellbutrin Morbid obesity -recommend weight loss -Complicates treatment, prognosis, outcomes DVT prophylaxis -INR remains supratherapeutic CODE STATUS Full code Charges/Coding Visit Charges Inpatient E&M: 01159 Subs Hosp L3 08/10/24 1246 <Electronically signed by Annetta Mar DO> Cosigner Signature (if applicable): CC: ~ Signed [facility] Work Phone: [phone] 331-705403-30-[address] [facility] Medical Records Department [address] [place] [id number] Progress Note - Hospitalist 08/10/24 0843 MR#: [id number] Acct: [id number] Name: PEDRO KARIMI Rep #:[id number] : 1965 58 From: Annetta Mar DO PCP: Dr. Margot Mai MD Status:ADM IN Location: [place] [address]- Reason for Visit Reason for Visit: Bright red blood per rectum/diarrhea Subjective Subjective Patient states he is feeling fine. Denies any significant abdominal pain no nausea or vomiting. Eating well. No fevers no chills. Blood pressure was low this morning. Creatinine is up again despite bolus and IV fluids through the night. It had gone down and then trended back up again. Alterations made in medications and further fluid boluses given. Plan is to obtain EGD and colonoscopy tomorrow Objective Data Objective Data Vital Signs: Vital Signs Temp Pulse Resp BP Pulse Ox O2 Del Method 97.5 F L 18 L 18 84/52 L 99 Room Air 08/10/24 08:32 08/10/24 08:32 08/10/24 08:32 08/10/24 08:32 08/10/24 08:32 08/10/24 08:32 Oxygen Delivery Method Room Air Weight: 132.449 kg Body Mass Index (BMI) 37.5 Intake & Output: Intake and Output for Last 24 Hours 08/08/24 08/09/24 08/10/24 23:59 23:59 23:59 Intake Total 1000 / 1000 3595.0 / 3595.0 1200 / 1200 Balance 1000 / 1000 3595.0 / 3595.0 1200 / 1200 Lab / Micro Data 08/10/24 04:47 08/10/24 04:47 Labs: Laboratory Results - last 24 hr 08/09/24 06:35: Diff Path Review September, PT 49.0 H, INR 5.2 H* 08/09/24 11:46: POC Glucose 179 H 08/09/24 14:15: Sodium 130 L, Potassium 3.5, Chloride 99, Carbon Dioxide 17.5 L,Anion Gap 13, BUN 26 H, Creatinine 1.73 H, Estim Creat Clear Calc 67.35, Est GFR(MDRD) Non-Af 45 L, BUN/Creatinine Ratio 15.1, Glucose 193 H, Calcium 8.2 08/09/24 16:08: POC Glucose 177 H 08/09/24 21:35: POC Glucose 233 H 08/10/24 04:47: PT 43.9 H, INR 4.5 H*, Sodium 131 L, Potassium 3.0 L, Chloride 101, Carbon Dioxide 18.8 L, Anion Gap 12, BUN 31 H, Creatinine 1.99 H, Estim Creat Clear Calc 58.55, Est GFR (MDRD) Non-Af 38 L, BUN/Creatinine Ratio 15.8, Glucose 135 H, Calcium 7.8, Phosphorus 5.2 H, Magnesium 1.8, Total Bilirubin 0.25, AST 9, ALT 5, Alkaline Phosphatase 71, Total Protein 5.0 L, Albumin 2.9 L,Globulin 2.2, Albumin/Globulin Ratio 1.3 Micro: Microbiology 08/06/24 03:00 Stool Enteric Bacteriology - Final 08/06/24 03:00 Stool Stool Lactoferrin - Final 08/06/24 03:00 Stool Clostridioides difficile (PCR) - Final 08/05/24 21:24 Stool Stool Occult Blood (EDUARD) - Final Occult Blood Positive Physical Exam Const alert, oriented x3, no apparent distress and well nourished; Negative for average body habitus or healthy appearing Constitutional Narrative: Morbidly obese, white male, sitting up in a chair at the bedside, appears well, nontoxic appearing,watching television General Appearance: cooperative HEENT normocephalic, head/scalp atraumatic, hearing grossly normal bilaterally and moist oral mucous membranes HEENT Narrative: Mallampati 4, no thrush Eyes conjunctivae normal Eyes Narrative: No scleral icterus Neck supple Neck Narrative: Neck is short and thick and trachea is midline Resp normal respiratory effort, no retractions, no use of accessory muscles and clearto auscultation bilaterally Cardio regular rate, regular rhythm, S1 normal heart sound, S2 normal heart sound, no murmurs, no rub, no gallops and no clicks GI normal to inspection, nondistended, normoactive bowel sounds, soft to palpation and non-tender Extremity no clubbing, cyanosis or edema Extremity Narrative: Pedal and radial pulses are 2+ Skin skin turgor normal, no jaundice, no petechiae and no mottling Neuro oriented x3, moves all extremities and no focal motor deficits Speech: speech normal Psych affect normal Psych Narrative: Very pleasant, interacts appropriately, eye contact is good, seems a bit less frustrated today Assessment & Plan Assessment/Plan (1) Bloody diarrhea: (2) Nausea and vomiting: QUALIFIERS: Vomiting type: bilious vomiting Qualified Code(s): R11.14 - Bilious vomiting (3) Supratherapeutic INR: (4) Paroxysmal atrial fibrillation: (5) Obesity (BMI 30-39.9): (6) MARIELLA (obstructive sleep apnea): PLAN: Plan Persistent intractable diarrhea -Etiology remains unclear at this time -Plan is for EGD and colonoscopy tomorrow without the diagnosis -C. difficile is negative -Enteric panel is negative -Lactoferrin is negative -Sed rate and CRP are both unremarkable -Continue cholestyramine and Metamucil -Continue Imodium 2 mg p.o. 3 times daily per GI -White count remains elevated but bandemia seems to be improving -Blood cultures pending -Continue Flagyl and Cipro for now-->Cipro is renally dosed -Has outpatient colonoscopy pending for 08/18/2024 there is no acute reason to perform colonoscopy atthis time. -GI following and plan is for scopes tomorrow Bright red blood per rectum -Resolved and hemoglobin stable Supratherapeutic INR -INR is trending down and now 4.5 from a peak of 8.0 -1 dose of vitamin K was given on 08/07/2024 5 mg IV -Continue to hold Coumadin -Repeat INR in a.m. -No bleeding at this time Hypokalemia -60 mill colons p.o. potassium Can repeat lab in a.m. -magnesium is within normal limits FRANSISCA -Dehydration likely related to profuse diarrhea and lack of sufficient oral intake - we did give him 2 L of IV fluids yesterday and his creatinine trended down andwill ask them on LRat 125 cc/h but his creatinine worsened again this morning. -2 more liters given today and will run fluids with LR at 200 cc/h to follow continuously -Check retroperitoneal ultrasound -Patient states urine output has been fine -Check urine lites with urine sodium and urine creatinine -Avoid nephrotoxins -Hold most of his antihypertensives as his blood pressure has been trending down Metabolic acidosis -Mild -Suspect related to FRANSISCA and ongoing diarrhea -Repeat lab in a.m. DM-2 -Continue basal insulin at 35 units -Fasting sugar 135 -Continue SSI -Continue Accu-Cheks as ordered -Hold home oral agents -Cardiac/carb controlled diet Paroxysmal atrial fibrillation/flutter -Previous failed DCCV in 2021 -History of cryoablation in 2021 -Hold diltiazem and continue metoprolol with hold parameters -Continue to hold Coumadin due to supratherapeutic INR -Currently in sinus rhythm Essential 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 -Hold home diltiazem -Hold home Lasix -Hold home lisinopril -Continue home metoprolol with hold parameters -Hold home Aldactone Nonischemic cardiomyopathy -EF has improved -This was suspected to be tachycardia mediated -Continue goal-directed therapy as noted History of tobacco abuse -Remote -Encouraged ongoing cessation History of chronic diastolic heart failure with preserved ejection fraction -Continue home diuretics -Remains euvolemic Restless leg syndrome -Stable Depression -Continue home Wellbutrin Morbid obesity -recommend weight loss -Complicates treatment, prognosis, outcomes DVT prophylaxis -INR remains supratherapeutic CODE STATUS Full code Charges/Coding Visit Charges Inpatient E&M: 48038 Subs Hosp L3 08/10/24 1246 Cosigner Signature (if applicable): CC: ~ Signed [facility]03-30-2025 Consult note Author Bipin Brito [facility] Note Date/Time August 09, 2024 10: 23pm [facility] Medical Records Department [address] [place] [address] Consultation - GI 08/09/246 MR#: [id number] Acct: [id number] Name: PEDRO KARIMI Rep #:[id number] : 1965 58 From: Bipin Brito DO PCP: Dr. Margot Mai MD Status:ADM IN Location: [place] [address] HPI Consult Data Date of Consult: 08/09/24 HPI Narrative Reason for Consultation: Diarrhea HPI Narrative: PEDRO KARIMI, is a 58 M presented for evaluation of nausea, vomiting, diarrhea. Patient states on he ate an egg which he believes was bad asit tasted gross. 3 days ago he developed nonbloody diarrhea. Patient states ithas become more dark in color today. He denies any recent antibiotic use. Patient states he is having some nausea and nonbloody emesis today. His last colonoscopy by Dr. Tamayo in May 2022. In the ER he was noted to have supratherapeutic INR of 5.3 secondary to warfarin causing Bloody Diarrhea followed by a CT scan of the abdomen pelvis with IV contrast that revealed limited examination due to contrast bolus timing with increased density within the small bowel and large bowel which may represent areas of active bleeding with GI input recommended. Stool studies - negative for Cdiff and enteric pathogens I was asked to see him because of persistent diarrhea 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 Essential 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 Atrial fibrillation with rapid ventricular response MARIELLA (obstructive sleep apnea) Diabetes COPD (chronic obstructive pulmonary disease) Home Medications ?Medication ?Instructions ?Recorded ?Last Taken ?Type bupropion HCl 150 mg tablet,12 hr 150 mg PO BID antide pressant 08/14/21 05/23/22 History sustained-release metformin 1,000 mg tablet 1,000 mg PO BID dm 08/14/21 05/23/22 History lisinopril 2.5 mg tablet 2.5 mg PO DAILY 05/22/2204/05 History insulin glargine 100 unit/mL (3 30 unit subcut BID 09/04 Unknown History mL) subcutaneous pen (Lantus Solostar U-100 Insulin) diltiazem HCl 120 mg 120 mg PO DAILY #90 caps Unknown Rx capsule,extended release 24 hr spironolactone 25 mg tablet See Rx Instructions .Route 09/24/23 Unknown Rx .COMPLEX #30 tabs potassium chloride 10 mEq 10 meq PO DAILY #90 tabs 12/05 Unknown Rx tablet,extended release furosemide 40 mg tablet 80 mg PO DAILY 08/05/24 Unkn own History metoprolol tartrate 75 mg tablet 75 mg PO Q12H 5 Unknown History warfarin 2 mg tablet 2 mg PO WETH 08/05/24 Unknow n History warfarin 5 mg tablet 10 mg PO DAILY 08/05/24 Unkn own History Allergy/AdvReac Type Severity Reaction Status Date / Time Penicillins Allergy PT UNSURE Verified 08/05/24 20:31 OF REACTION Family History Other COPD (chronic obstructive pulmonary disease) Colon cancer Heart disease Lung cancer Testicular cancer Surgical History History of cardiac catheterization Status post cryoablation of arrhythmia (03/01/22) History of cardioversion (10/27/21) Bunion H/O hernia repair Social History Smoking Status: Former smoker alcohol intake: never substance use type: does not use caffeine: Yes Type: coffee Number of servings: 1 ROS ROS Narrative Review of Systems: Constitutional: Patient denies fever or chills. Eyes: Patient denies changes in vision or discharge from eyes. ENT: Patient denies runny nose, sore throat or ear pain. Resp: Patient denies shortness of breath or cough. CV: Patient denies chest pain, palpitations, heart racing or lower extremity edema. GI: Patient admits to mild epigastric abdominal pain with nausea and bilious emesis in addition to bloody diarrhea with dark stools as per HPI. : Patient denies dysuria or hematuria. MSK: Patient denies arthralgias or myalgias. Skin: Patient denies rash, abscess, wounds or jaundice. Psych: Patient denies symptoms of uncontrolled depression or anxiety. Neuro: Patient denies headache, paresthesias or focal neurologic deficits. Allergy: Patient denies lip swelling, tongue swelling or urticaria. Hematology: Patient admits to bloody diarrhea as per HPI. Endocrinology: Patient denies polyuria, polydipsia, polyphagia or heat/cold intolerance. 14 point ROS otherwise negative save for positives noted above in HPI. Physical Exam Const alert, oriented x3, no apparent distress and healthy appearing General Appearance: cooperative GI normal to inspection, nondistended, normoactive bowel sounds, soft to palpation,non-tender and non-distended Percussion: normal to percussion Rectal Exam: deferred Lab / Micro Data 08/09/24 06:35 08/09/24 14:15 Labs: Laboratory Results - last 24 hr 08/08/24 21:49: POC Glucose 249 H 08/09/24 06:34: POC Glucose 204 H 08/09/24 06:35: WBC 19.7 H, RBC 6.41 H, Hgb 17.5 H, Hct 52.6, MCV 82.1, MCH 27.3, MCHC 33.3, RDW Std Deviation 45.2 H, RDW Coeff of Jett 15.9 H, Plt Count 326, MPV 10.8, Neut % (Auto) Not Reportable, Absolute Neuts (auto) 10.5 H, Absolute Lymphs (auto) 5.52 H, Total Counted 100, Neutrophils % (Manual) 41 L, Band Neutrophils % 12 H, Lymphocytes % (Manual) 28, Monocytes % (Manual) 3, Eosinophils % (Manual) 10 H, Metamyelocytes % 3 H, Myelocytes % 2 H, Promyelocytes % 1 H, Nucleated RBCs/100 WBC 1, Platelet Estimate ADEQUATE, RBC Morphology NORM C+C, PT 49.0 H, INR 5.2 H*, Sodium 131 L, Potassium 3.5, Chloride 97 L, Carbon Dioxide 18.8 L, Anion Gap 15, BUN 25 H, Creatinine 1.94 H, Estim Creat Clear Calc 61.31, Est GFR (MDRD) Non-Af 39 L, BUN/Creatinine Ratio 12.7, Glucose 189 H, Calcium 8.4 08/09/24 11:46: POC Glucose 179 H 08/09/24 14:15: Sodium 130 L, Potassium 3.5, Chloride 99, Carbon Dioxide 17.5 L,Anion Gap 13, BUN 26 H, Creatinine 1.73 H, Estim Creat Clear Calc 67.35, Est GFR(MDRD) Non-Af 45 L, BUN/Creatinine Ratio 15.1, Glucose 193 H, Calcium 8.2 08/09/24 16:08: POC Glucose 177 H Assessment & Plan Assessment/Plan (1) Bloody diarrhea: (2) Nausea and vomiting: QUALIFIERS: Vomiting type: bilious vomiting Qualified Code(s): R11.14 - Bilious vomiting (3) Food poisoning: (4) Supratherapeutic INR: PLAN: Plan 58 yo with Bloody Diarrhea with Nausea and Vomiting causing Bilious Emesis initially triggered by suspected Food Poisoning with CT scan of abdomen/pelvis Differential Diagnosis- Inflammatory bowel disease, Microscopic colitis, IBS with diarrhea. He will get an egd and colonoscopy on 08/11/2024 Charges/Coding Visit Charges Inpatient E&M: 01264 Init Hosp L3 08/09/242222 <Electronically signed by Bipin Brito DO> Cosigner Signature (if applicable): CC: Dr. Margot Mai MD~ Signed [facility] Work Phone: [phone] 320-371903-29-[address] [facility] Medical Records Department [address] [place] [address] Consultation - GI 08/09/242205 MR#: [id number] Acct: [id number] Name: PEDRO KARIMI Rep #:[id number] : 1965 58 From: Bipin Brito DO PCP: Dr. Margot Mai MD Status:ADM IN Location: [facility] [id number] HPI Consult Data Date of Consult: 08/09/24 HPI Narrative Reason for Consultation: Diarrhea HPI Narrative: PEDRO KARIMI, is a 58 M presented for evaluation of nausea, vomiting, diarrhea. Patient states onThursday he ate an egg which he believes was bad asit tasted gross. 3 days ago he developed nonbloody diarrhea. Patient states ithas become more dark in color today. He denies any recent antibiotic use. Patient states he is having some nausea and nonbloody emesis today. His last colonoscopy by Dr. Tamayo in May 2022. In the ER he was noted to have supratherapeutic INR of 5.3 secondary to warfarin causing Bloody Diarrhea followed by a CT scan of the abdomen pelvis with IV contrast that revealed limited examinationdue to contrast bolus timing with increased density within the small bowel and large bowel which may represent areas of active bleeding with GI input recommended. Stool studies - negative for Cdiff and enteric pathogens I was asked to see him because of persistent diarrhea 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 Essential 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 Atrial fibrillation with rapid ventricular response MARIELLA (obstructive sleep apnea) Diabetes COPD (chronic obstructive pulmonary disease) Home Medications ?Medication ?Instructions ?Recorded ?Last Taken ?Type bupropion HCl 150 mg tablet,12 hr 150 mg PO BID antide pressant 08/14/21 05/23/22 History sustained-release metformin 1,000 mg tablet 1,000 mg PO BID dm 08/14/21 05/23/22 History lisinopril 2.5 mg tablet 2.5 mg PO DAILY 05/22/2204/05 History insulin glargine 100 unit/mL (3 30 unit subcut BID 09/04 Unknown History mL) subcutaneous pen (Lantus Solostar U-100 Insulin) diltiazem HCl 120 mg 120 mg PO DAILY #90 caps Unknown Rx capsule,extended release 24 hr spironolactone 25 mg tablet See Rx Instructions .Route 09/24/23 Unknown Rx .COMPLEX #30 tabs potassium chloride 10 mEq 10 meq PO DAILY #90 tabs 12/05 Unknown Rx tablet,extended release furosemide 40 mg tablet 80 mg PO DAILY 08/05/24 Unkn own History metoprolol tartrate 75 mg tablet 75 mg PO Q12H 5 Unknown History warfarin 2 mg tablet 2 mg PO WETH 08/05/24 Unknow n History warfarin 5 mg tablet 10 mg PO DAILY 08/05/24 Unkn own History Allergy/AdvReac Type Severity Reaction Status Date / Time Penicillins Allergy PT UNSURE Verified 08/05/24 20:31 OF REACTION Family History Other COPD (chronic obstructive pulmonary disease) Colon cancer Heart disease Lung cancer Testicular cancer Surgical History History of cardiac catheterization Status post cryoablation of arrhythmia (03/01/22) History of cardioversion (10/27/21) Bunion H/O hernia repair Social History Smoking Status: Former smoker alcohol intake: never substance use type: does not use caffeine: Yes Type: coffee Number of servings: 1 ROS ROS Narrative Review of Systems: Constitutional: Patient denies fever or chills. Eyes: Patient denies changes in vision or discharge from eyes. ENT: Patient denies runny nose, sore throat or ear pain. Resp: Patient denies shortness of breath or cough. CV: Patient denies chest pain, palpitations, heart racing or lower extremity edema. GI: Patient admits to mild epigastric abdominal pain with nausea and bilious emesis in addition to bloody diarrhea with dark stools as per HPI. : Patient denies dysuria or hematuria. MSK: Patient denies arthralgias or myalgias. Skin: Patient denies rash, abscess, wounds or jaundice. Psych: Patient denies symptoms of uncontrolled depression or anxiety. Neuro: Patient denies headache, paresthesias or focal neurologic deficits. Allergy: Patient denies lip swelling, tongue swelling or urticaria. Hematology: Patient admits to bloody diarrhea as per HPI. Endocrinology: Patient denies polyuria, polydipsia, polyphagia or heat/cold intolerance. 14 point ROS otherwise negative save for positives noted above in HPI. Physical Exam Const alert, oriented x3, no apparent distress and healthy appearing General Appearance: cooperative GI normal to inspection, nondistended, normoactive bowel sounds, soft to palpation,non-tender and non-distended Percussion: normal to percussion Rectal Exam: deferred Lab / Micro Data 08/09/24 06:35 08/09/24 14:15 Labs: Laboratory Results - last 24 hr 08/08/24 21:49: POC Glucose 249 H 08/09/24 06:34: POC Glucose 204 H 08/09/24 06:35: WBC 19.7 H, RBC 6.41 H, Hgb 17.5 H, Hct 52.6, MCV 82.1, MCH 27.3, MCHC 33.3, RDW Std Deviation 45.2 H, RDW Coeff of Jett 15.9 H, Plt Count 326, MPV 10.8, Neut % (Auto) Not Reportable, Absolute Neuts (auto) 10.5 H, Absolute Lymphs (auto) 5.52 H, Total Counted 100, Neutrophils % (Manual) 41 L, Band Neutrophils % 12 H, Lymphocytes % (Manual) 28, Monocytes % (Manual) 3, Eosinophils % (Manual) 10 H, Metamyelocytes % 3 H, Myelocytes % 2 H, Promyelocytes % 1 H, Nucleated RBCs/100 WBC 1,Platelet Estimate ADEQUATE, RBC Morphology NORM C+C, PT 49.0 H, INR 5.2 H*, Sodium 131 L, Potassium3.5, Chloride 97 L, Carbon Dioxide 18.8 L, Anion Gap 15, BUN 25 H, Creatinine 1.94 H, Estim Creat Clear Calc 61.31, Est GFR (MDRD) Non-Af 39 L, BUN/Creatinine Ratio 12.7, Glucose 189 H, Calcium 8.4 08/09/24 11:46: POC Glucose 179 H 08/09/24 14:15: Sodium 130 L, Potassium 3.5, Chloride 99, Carbon Dioxide 17.5 L,Anion Gap 13, BUN 26 H, Creatinine 1.73 H, Estim Creat Clear Calc 67.35, Est GFR(MDRD) Non-Af 45 L, BUN/Creatinine Ratio 15.1, Glucose 193 H, Calcium 8.2 08/09/24 16:08: POC Glucose 177 H Assessment & Plan Assessment/Plan (1) Bloody diarrhea: (2) Nausea and vomiting: QUALIFIERS: Vomiting type: bilious vomiting Qualified Code(s): R11.14 - Bilious vomiting (3) Food poisoning: (4) Supratherapeutic INR: PLAN: Plan 58 yo with Bloody Diarrhea with Nausea and Vomiting causing Bilious Emesis initially triggered by suspected Food Poisoning with CT scan of abdomen/pelvis Differential Diagnosis- Inflammatory bowel disease, Microscopic colitis, IBS with diarrhea. He willget an egd and colonoscopy on 08/11/2024 Charges/Coding Visit Charges Inpatient E&M: 37921 Init Hosp L3 08/09/242222 Cosigner Signature (if applicable): CC: Dr. Margot Mai MD~ Signed [facility]03-29-2025 Progress note Author Annetta Mar [facility] Note Date/Time August 09, 2024 5:[address] [facility] Medical Records Department [address] [place] [address] Progress Note - Hospitalist 08/09/24 0904 MR#: [id number] Acct: [id number] Name: PEDRO KARIMI Rep #:[id number] : 1965 58 From: Annetta Mar DO PCP: Dr. Margot Mai MD Status:ADM IN Location: [place] [address] Reason for Visit Reason for Visit: Bright red blood per rectum/diarrhea Subjective Subjective Patient with ongoing diarrhea but states the frequency seems to be slowing some. Still with a leukocytosis and bandemia. Denies any fever chills abdominal painnausea, vomiting. Tolerating a diet okay. Objective Data Objective Data Vital Signs: Vital Signs Temp Pulse Resp BP Pulse Ox O2 Del Method 97.8 F 71 16 100/62 97 Room Air 08/09/24 03:09 08/09/24 03:09 08/09/24 03:09 08/09/24 03:09 08/09/24 03:09 08/09/24 03:09 Oxygen Delivery Method Room Air Weight: 137.8 kg Body Mass Index (BMI) 38.9 Intake & Output: Intake and Output for Last 24 Hours 08/07/24 08/08/24 08/09/24 23:59 23:59 23:59 Intake Total 1000 / 1000 1000 / 1000 Balance 1000 / 1000 1000 / 1000 Lab / Micro Data 08/09/24 06:35 08/09/24 14:15 Labs: Laboratory Results - last 24 hr 08/08/24 07:17: Absolute Neuts (auto) 7.4, Absolute Lymphs (auto) 3.03, Total Counted 100, Neutrophils % (Manual) 47, Band Neutrophils % 9 H, Lymphocytes % (Manual) 23, Monocytes % (Manual) 8, Eosinophils % (Manual) 4, Metamyelocytes % 6 H, Myelocytes % 3 H, Platelet Estimate A, Polychromasia 1+, ESR 12, Sodium 133, Potassium 3.9, Chloride 105, Carbon Dioxide 16.8 L, Anion Gap 12, BUN 13, Creatinine 1.00, Estim Creat Clear Calc 118.95, Est GFR (MDRD) Non-Af 87, BUN/Creatinine Ratio 12.8, Glucose 191 H, Calcium 8.4, Phosphorus 3.4, Total Bilirubin 0.21, AST 11, ALT 7, Alkaline Phosphatase 102, C-React Prot Ext Range 9.20 H, Total Protein 6.2, Albumin 3.4 L, Globulin 2.8, Albumin/Globulin Ratio 1.2 08/08/24 11:48: POC Glucose 229 H 08/08/24 16:34: POC Glucose 189 H 08/08/24 21:49: POC Glucose 249 H 08/09/24 06:34: POC Glucose 204 H 08/09/24 06:35: WBC 19.7 H, RBC 6.41 H, Hgb 17.5 H, Hct 52.6, MCV 82.1, MCH 27.3, MCHC 33.3, RDW Std Deviation 45.2 H, RDW Coeff of Jett 15.9 H, Plt Count 326, MPV 10.8, Neut % (Auto) Not Reportable, Absolute Neuts (auto) 10.5 H, Absolute Lymphs (auto) 5.52 H, Total Counted 100, Neutrophils % (Manual) 41 L, Band Neutrophils % 12 H, Lymphocytes % (Manual) 28, Monocytes % (Manual) 3, Eosinophils % (Manual) 10 H, Metamyelocytes % 3 H, Myelocytes % 2 H, Promyelocytes % 1 H, Nucleated RBCs/100 WBC 1, Platelet Estimate ADEQUATE, RBC Morphology NORM C+C, PT 49.0 H, INR 5.2 H*, Sodium 131 L, Potassium 3.5, Chloride 97 L, Carbon Dioxide 18.8 L, Anion Gap 15, BUN 25 H, Creatinine 1.94 H, Estim Creat Clear Calc 61.31, Est GFR (MDRD) Non-Af 39 L, BUN/Creatinine Ratio 12.7, Glucose 189 H, Calcium 8.4 Micro: Microbiology 08/06/24 03:00 Stool Enteric Bacteriology - Final 08/06/24 03:00 Stool Stool Lactoferrin - Final 08/06/24 03:00 Stool Clostridioides difficile (PCR) - Final 08/05/24 21:24 Stool Stool Occult Blood (EDUARD) - Final Occult Blood Positive Physical Exam Const alert, oriented x3, no apparent distress and well nourished; Negative for average body habitus or healthy appearing Constitutional Narrative: Morbidly obese, white male, lying in bed, appears comfortable, does not look toxic, watching television General Appearance: cooperative HEENT normocephalic, head/scalp atraumatic and moist oral mucous membranes HEENT Narrative: Mallampati 3-4, no thrush Resp normal respiratory effort, no retractions, no use of accessory muscles and clearto auscultation bilaterally Cardio regular rate, regular rhythm, S1 normal heart sound, S2 normal heart sound, no murmurs, no rub, no gallops and no clicks GI normal to inspection, nondistended, normoactive bowel sounds, soft to palpation and non-tender GI Narrative: No abdominal tenderness noted all Extremity no clubbing, cyanosis or edema Extremity Narrative: Pedal and radial pulses are 2+ Neuro oriented x3, moves all extremities and no focal motor deficits Speech: speech normal Psych affect normal Psych Narrative: Frustrated but pleasant Assessment & Plan Assessment/Plan (1) Bloody diarrhea: (2) Nausea and vomiting: QUALIFIERS: Vomiting type: bilious vomiting Qualified Code(s): R11.14 - Bilious vomiting (3) Supratherapeutic INR: (4) Paroxysmal atrial fibrillation: (5) Obesity (BMI 30-39.9): (6) MARIELLA (obstructive sleep apnea): PLAN: Plan Ongoing diarrhea -Etiology remains unclear at this time -C. difficile is negative -Enteric panel is negative -Lactoferrin is negative -Sed rate and CRP are both unremarkable -Continue cholestyramine and Metamucil -Continue Imodium 2 mg p.o. 3 times daily per GI -With white count elevation and bandemia will we will go ahead and start antibiotics -Has outpatient colonoscopy pending for 08/18/2024 there is no acute reason to perform colonoscopy at this time. -GI consulted awaiting formal consult-discussed with Dr. Brito Bright red blood per rectum -Resolved and hemoglobin stable Supratherapeutic INR -INR is stabilizing and down to 5.2 from 5.9 -1 dose of vitamin K was given on 08/07/2024 5 mg IV -Continue to hold Coumadin -Repeat INR in a.m. -No bleeding at this time FRANSISCA -Dehydration likely related to profuse diarrhea and lack of sufficient oral intake -2 L IV fluids given bolus and then will continue IV fluids 125 mg an hour through tomorrow morning and reassess -Avoid nephrotoxins Metabolic acidosis -Mild -Suspect related to FRANSISCA -Repeat lab in a.m. DM-2 -Continue basal insulin at 35 units -Continue SSI -Continue Accu-Cheks as ordered -Hold home oral agents -Cardiac/carb controlled diet Paroxysmal atrial fibrillation/flutter -Previous failed DCCV in 2021 -History of cryoablation in 2021 -Continue diltiazem and metoprolol -Continue to hold Coumadin due to supratherapeutic INR -Currently in sinus rhythm Essential 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 -Continue home diltiazem -Continue home Lasix -continue home lisinopril -Continue home metoprolol -continue home Aldactone Nonischemic cardiomyopathy -EF has improved -This was suspected to be tachycardia mediated -Continue goal-directed therapy as noted History of tobacco abuse -Remote -Encouraged ongoing cessation History of chronic diastolic heart failure with preserved ejection fraction -Continue home diuretics -Remains euvolemic Restless leg syndrome -Stable Depression -Continue home Wellbutrin Morbid obesity -recommend weight loss -Complicates treatment, prognosis, outcomes DVT prophylaxis -INR remains supratherapeutic CODE STATUS Full code Charges/Coding Visit Charges Inpatient E&M: 06039 Subs Hosp L2 08/09/24 4412 <Electronically signed by Annetta Mar DO> Cosigner Signature (if applicable): CC: ~ Signed [facility] Work Phone: [phone] [facility] Medical Records Department [address] [place] [address] Progress Note - Hospitalist 08/09/24903 MR#: [id number] Acct: [id number] Name: PEDRO KARIMI Rep #:[id number] : 1965 58 From: Annetta Mar DO PCP: Dr. Margot Mai MD Status:ADM IN Location: [place] [address] Reason for Visit Reason for Visit: Bright red blood per rectum/diarrhea Subjective Subjective Patient with ongoing diarrhea but states the frequency seems to be slowing some. Still with a leukocytosis and bandemia. Denies any fever chills abdominal painnausea, vomiting. Tolerating a diet okay. Objective Data Objective Data Vital Signs: Vital Signs Temp Pulse Resp BP Pulse Ox O2 Del Method 97.8 F 71 16 100/62 97 Room Air 08/09/24 03:09 08/09/24 03:09 08/09/24 03:09 08/09/24 03:09 08/09/24 03:09 08/09/24 03:09 Oxygen Delivery Method Room Air Weight: 137.8 kg Body Mass Index (BMI) 38.9 Intake & Output: Intake and Output for Last 24 Hours 08/07/24 08/08/24 08/09/24 23:59 23:59 23:59 Intake Total 1000 / 1000 1000 / 1000 Balance 1000 / 1000 1000 / 1000 Lab / Micro Data 08/09/24 06:35 08/09/24 14:15 Labs: Laboratory Results - last 24 hr 08/08/24 07:17: Absolute Neuts (auto) 7.4, Absolute Lymphs (auto) 3.03, Total Counted 100, Neutrophils % (Manual) 47, Band Neutrophils % 9 H, Lymphocytes % (Manual) 23, Monocytes % (Manual) 8, Eosinophils % (Manual) 4, Metamyelocytes % 6 H, Myelocytes % 3 H, Platelet Estimate A, Polychromasia 1+, ESR 12, Sodium 133, Potassium 3.9, Chloride 105, Carbon Dioxide 16.8 L, Anion Gap 12, BUN 13, Creatinine 1.00, Estim Creat Clear Calc 118.95, Est GFR (MDRD) Non-Af 87, BUN/Creatinine Ratio 12.8, Glucose 191 H, Calcium 8.4, Phosphorus 3.4, Total Bilirubin 0.21, AST 11, ALT 7, Alkaline Phosphatase 102,C-React Prot Ext Range 9.20 H, Total Protein 6.2, Albumin 3.4 L, Globulin 2.8, Albumin/Globulin Ratio 1.2 08/08/24 11:48: POC Glucose 229 H 08/08/24 16:34: POC Glucose 189 H 08/08/24 21:49: POC Glucose 249 H 08/09/24 06:34: POC Glucose 204 H 08/09/24 06:35: WBC 19.7 H, RBC 6.41 H, Hgb 17.5 H, Hct 52.6, MCV 82.1, MCH 27.3, MCHC 33.3, RDW Std Deviation 45.2 H, RDW Coeff of Jett 15.9 H, Plt Count 326, MPV 10.8, Neut % (Auto) Not Reportable, Absolute Neuts (auto) 10.5 H, Absolute Lymphs (auto) 5.52 H, Total Counted 100, Neutrophils % (Manual) 41 L, Band Neutrophils % 12 H, Lymphocytes % (Manual) 28, Monocytes % (Manual) 3, Eosinophils % (Manual) 10 H, Metamyelocytes % 3 H, Myelocytes % 2 H, Promyelocytes % 1 H, Nucleated RBCs/100 WBC 1,Platelet Estimate ADEQUATE, RBC Morphology NORM C+C, PT 49.0 H, INR 5.2 H*, Sodium 131 L, Potassium3.5, Chloride 97 L, Carbon Dioxide 18.8 L, Anion Gap 15, BUN 25 H, Creatinine 1.94 H, Estim Creat Clear Calc 61.31, Est GFR (MDRD) Non-Af 39 L, BUN/Creatinine Ratio 12.7, Glucose 189 H, Calcium 8.4 Micro: Microbiology 08/06/24 03:00 Stool Enteric Bacteriology - Final 08/06/24 03:00 Stool Stool Lactoferrin - Final 08/06/24 03:00 Stool Clostridioides difficile (PCR) - Final 08/05/24 21:24 Stool Stool Occult Blood (EDUARD) - Final Occult Blood Positive Physical Exam Const alert, oriented x3, no apparent distress and well nourished; Negative for average body habitus or healthy appearing Constitutional Narrative: Morbidly obese, white male, lying in bed, appears comfortable, does not look toxic, watching television General Appearance: cooperative HEENT normocephalic, head/scalp atraumatic and moist oral mucous membranes HEENT Narrative: Mallampati 3-4, no thrush Resp normal respiratory effort, no retractions, no use of accessory muscles and clearto auscultation bilaterally Cardio regular rate, regular rhythm, S1 normal heart sound, S2 normal heart sound, no murmurs, no rub, no gallops and no clicks GI normal to inspection, nondistended, normoactive bowel sounds, soft to palpation and non-tender GI Narrative: No abdominal tenderness noted all Extremity no clubbing, cyanosis or edema Extremity Narrative: Pedal and radial pulses are 2+ Neuro oriented x3, moves all extremities and no focal motor deficits Speech: speech normal Psych affect normal Psych Narrative: Frustrated but pleasant Assessment & Plan Assessment/Plan (1) Bloody diarrhea: (2) Nausea and vomiting: QUALIFIERS: Vomiting type: bilious vomiting Qualified Code(s): R11.14 - Bilious vomiting (3) Supratherapeutic INR: (4) Paroxysmal atrial fibrillation: (5) Obesity (BMI 30-39.9): (6) MARIELLA (obstructive sleep apnea): PLAN: Plan Ongoing diarrhea -Etiology remains unclear at this time -C. difficile is negative -Enteric panel is negative -Lactoferrin is negative -Sed rate and CRP are both unremarkable -Continue cholestyramine and Metamucil -Continue Imodium 2 mg p.o. 3 times daily per GI -With white count elevation and bandemia will we will go ahead and start antibiotics -Has outpatient colonoscopy pending for 08/18/2024 there is no acute reason to perform colonoscopy atthis time. -GI consulted awaiting formal consult-discussed with Dr. Brito Bright red blood per rectum -Resolved and hemoglobin stable Supratherapeutic INR -INR is stabilizing and down to 5.2 from 5.9 -1 dose of vitamin K was given on 08/07/2024 5 mg IV -Continue to hold Coumadin -Repeat INR in a.m. -No bleeding at this time FRANSISCA -Dehydration likely related to profuse diarrhea and lack of sufficient oral intake -2 L IV fluids given bolus and then will continue IV fluids 125 mg an hour through tomorrow morningand reassess -Avoid nephrotoxins Metabolic acidosis -Mild -Suspect related to FRANSISCA -Repeat lab in a.m. DM-2 -Continue basal insulin at 35 units -Continue SSI -Continue Accu-Cheks as ordered -Hold home oral agents -Cardiac/carb controlled diet Paroxysmal atrial fibrillation/flutter -Previous failed DCCV in 2021 -History of cryoablation in 2021 -Continue diltiazem and metoprolol -Continue to hold Coumadin due to supratherapeutic INR -Currently in sinus rhythm Essential 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 -Continue home diltiazem -Continue home Lasix -continue home lisinopril -Continue home metoprolol -continue home Aldactone Nonischemic cardiomyopathy -EF has improved -This was suspected to be tachycardia mediated -Continue goal-directed therapy as noted History of tobacco abuse -Remote -Encouraged ongoing cessation History of chronic diastolic heart failure with preserved ejection fraction -Continue home diuretics -Remains euvolemic Restless leg syndrome -Stable Depression -Continue home Wellbutrin Morbid obesity -recommend weight loss -Complicates treatment, prognosis, outcomes DVT prophylaxis -INR remains supratherapeutic CODE STATUS Full code Charges/Coding Visit Charges Inpatient E&M: 76936 Subs Hosp L2 08/09/24 8958 Cosigner Signature (if applicable): CC: ~ Signed [facility]03-28-2025 Progress note Author Annetta Mar [facility] Note Date/Time August 08, 2024 11: 40am [facility] Medical Records Department [address] [place] [id number] Progress Note - Hospitalist 08/08/24 1122 MR#: [id number] Acct: [id number] Name: PEDRO KARIMI Rep #:[id number] : 1965 58 From: Annetta Mar DO PCP: Dr. Margot Mai MD Status:ADM IN Location: [place] [address] 1 Reason for Visit Reason for Visit: Bright red blood per rectum/diarrhea intractable Subjective Subjective Patient still having diarrhea. States that his stool is normal bulk formed despite the addition of fiber and cholestyramine yesterday. Still denies any significant abdominal pain. Eating well. No nausea or vomiting. Blood sugars are fairly well-controlled overall Objective Data Objective Data Vital Signs: Vital Signs Temp Pulse Resp BP Pulse Ox O2 Del Method 97.4 F L 72 16 115/71 96 Room Air 08/08/24 08:45 08/08/24 08:48 08/08/24 08:45 08/08/24 08:45 08/08/24 08:45 08/08/24 08:45 Oxygen Delivery Method Room Air Weight: 137.8 kg Body Mass Index (BMI) 38.9 Intake & Output: Intake and Output for Last 24 Hours 08/06/24 08/07/24 08/08/24 23:59 23:59 23:59 Intake Total 2241.33 / 2241.33 1000 / 1000 Balance 2241.33 / 2241.33 1000 / 1000 Lab / Micro Data 08/08/24 07:17 08/08/24 07:17 Labs: Laboratory Results - last 24 hr 08/07/24 11:16: POC Glucose 180 H 08/07/24 16:47: POC Glucose 182 H 08/07/24 22:54: POC Glucose 163 H 08/08/24 06:20: POC Glucose 190 H 08/08/24 07:17: WBC 13.2 H, RBC 6.06, Hgb 16.8 H, Hct 50.1, MCV 82.7, MCH 27.7, MCHC 33.5, RDW Std Deviation 45.2 H, RDW Coeff of Jett 15.2 H, Plt Count 272, MPV11.1, Neut % (Auto) Not Reportable, PT 54.0 H, INR 5.9 H*, Sodium 133, Potassium3.9, Chloride 105, Carbon Dioxide 16.8 L, Anion Gap 12, BUN 13, Creatinine 1.00,Estim Creat Clear Calc 118.95, Est GFR (MDRD) Non-Af 87, BUN/Creatinine Ratio 12.8, Glucose 191 H, Calcium 8.4, Phosphorus 3.4, Total Bilirubin 0.21, AST 11, ALT 7, Alkaline Phosphatase 102, Total Protein 6.2, Albumin 3.4 L, Globulin 2.8,Albumin/Globulin Ratio 1.2 Micro: Microbiology 08/06/24 03:00 Stool Enteric Bacteriology - Final 08/06/24 03:00 Stool Stool Lactoferrin - Final 08/06/24 03:00 Stool Clostridioides difficile (PCR) - Final 08/05/24 21:24 Stool Stool Occult Blood (EDUARD) - Final Occult Blood Positive Physical Exam Const alert, oriented x3, no apparent distress and well nourished; Negative for average body habitus or healthy appearing Constitutional Narrative: Morbidly obese, white male, lying in bed, appears comfortable, does not look toxic, watching television General Appearance: cooperative HEENT normocephalic, head/scalp atraumatic and moist oral mucous membranes Resp normal respiratory effort, no retractions, no use of accessory muscles and clearto auscultation bilaterally Cardio regular rate, regular rhythm, S1 normal heart sound, S2 normal heart sound, no murmurs, no rub, no gallops and no clicks GI normal to inspection, nondistended, normoactive bowel sounds, soft to palpation and non-tender GI Narrative: No significant tenderness noted, Extremity no clubbing, cyanosis or edema Neuro oriented x3, moves all extremities and no focal motor deficits Speech: speech normal Psych affect normal Assessment & Plan Assessment/Plan (1) Bloody diarrhea: (2) Nausea and vomiting: QUALIFIERS: Vomiting type: bilious vomiting Qualified Code(s): R11.14 - Bilious vomiting (3) Supratherapeutic INR: (4) Paroxysmal atrial fibrillation: (5) Obesity (BMI 30-39.9): (6) MARIELLA (obstructive sleep apnea): PLAN: Plan Ongoing diarrhea -Etiology remains unclear at this time -C. difficile is negative -Enteric panel is negative -Lactoferrin is negative -Check sed rate and CRP -Utilizing as needed Imodium, have started on scheduled cholestyramine and Metamucil with no change in stool activity -Has outpatient colonoscopy pending for 08/18/2024 there is no acute reason to perform colonoscopy at this time. -Given the fact he said no change on current therapy will consult GI-discussed with Dr. Brito Bright red blood per rectum -Highly suspect related to diarrhea and supratherapeutic INR -Hemoglobin is normal with no significant downtrend -No further bleeding despite INR still being elevated -No need for acute scope -CT of his abdomen pelvis did show some abnormalities however clinically it doesnot quite make sense Supratherapeutic INR -Down to 5.9 today from 8 yesterday -Continue to hold Coumadin -Repeat INR in a.m. -No bleeding at this time DM-2 -Increase basal insulin from 30-35 -Fasting sugars are still high -Continue SSI -Continue Accu-Cheks as ordered -Hold home oral agents -Cardiac/carb controlled diet Paroxysmal atrial fibrillation/flutter -Previous failed DCCV in 2021 -History of cryoablation in 2021 -Continue diltiazem and metoprolol -Continue to hold Coumadin due to supratherapeutic INR -Currently in sinus rhythm Essential 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 -Continue home diltiazem -Continue home Lasix -continue home lisinopril -Continue home metoprolol -continue home Aldactone Nonischemic cardiomyopathy -EF has improved -This was suspected to be tachycardia mediated -Continue goal-directed therapy as noted History of tobacco abuse -Remote -Encouraged ongoing cessation History of chronic diastolic heart failure with preserved ejection fraction -Continue home diuretics -Remains euvolemic Restless leg syndrome -Stable Depression -Continue home Wellbutrin Morbid obesity -recommend weight loss -Complicates treatment, prognosis, outcomes DVT prophylaxis -INR remains supratherapeutic CODE STATUS Full code Charges/Coding Visit Charges Inpatient E&M: 94645 Subs Hosp L2 08/08/24 1140 <Electronically signed by Annetta Mar DO> Cosigner Signature (if applicable): CC: ~ Signed [facility] Work Phone: [phone]) 554-777703-28-2025 Progress note [facility] Medical Records Department [address] [place] [address] Progress Note - Hospitalist 08/08/24 1122 MR#: [id number] Acct: [id number] Name: PEDRO KARIMI Rep #:[id number] : 1965 58 From: Annetta Mar DO PCP: Dr. Margot Mai MD Status:ADM IN Location: [place] [address] Reason for Visit Reason for Visit: Bright red blood per rectum/diarrhea intractable Subjective Subjective Patient still having diarrhea. States that his stool is normal bulk formed despite the addition of fiber and cholestyramine yesterday. Still denies any significant abdominal pain. Eating well. No nausea or vomiting. Blood sugars are fairly well-controlled overall Objective Data Objective Data Vital Signs: Vital Signs Temp Pulse Resp BP Pulse Ox O2 Del Method 97.4 F L 72 16 115/71 96 Room Air 08/08/24 08:45 08/08/24 08:48 08/08/24 08:45 08/08/24 08:45 08/08/24 08:45 08/08/24 08:45 Oxygen Delivery Method Room Air Weight: 137.8 kg Body Mass Index (BMI) 38.9 Intake & Output: Intake and Output for Last 24 Hours 08/06/24 08/07/24 08/08/24 23:59 23:59 23:59 Intake Total 2241.33 / 2241.33 1000 / 1000 Balance 2241.33 / 2241.33 1000 / 1000 Lab / Micro Data 08/08/24 07:17 08/08/24 07:17 Labs: Laboratory Results - last 24 hr 08/07/24 11:16: POC Glucose 180 H 08/07/24 16:47: POC Glucose 182 H 08/07/24 22:54: POC Glucose 163 H 08/08/24 06:20: POC Glucose 190 H 08/08/24 07:17: WBC 13.2 H, RBC 6.06, Hgb 16.8 H, Hct 50.1, MCV 82.7, MCH 27.7, MCHC 33.5, RDW Std Deviation 45.2 H, RDW Coeff of Jett 15.2 H, Plt Count 272, MPV11.1, Neut % (Auto) Not Reportable, PT 54.0 H, INR 5.9 H*, Sodium 133, Potassium3.9, Chloride 105, Carbon Dioxide 16.8 L, Anion Gap 12, BUN13, Creatinine 1.00,Estim Creat Clear Calc 118.95, Est GFR (MDRD) Non-Af 87, BUN/Creatinine Ratio 12.8, Glucose 191 H, Calcium 8.4, Phosphorus 3.4, Total Bilirubin 0.21, AST 11, ALT 7, Alkaline Phosphatase 102, Total Protein 6.2, Albumin 3.4 L, Globulin 2.8,Albumin/Globulin Ratio 1.2 Micro: Microbiology 08/06/24 03:00 Stool Enteric Bacteriology - Final 08/06/24 03:00 Stool Stool Lactoferrin - Final 08/06/24 03:00 Stool Clostridioides difficile (PCR) - Final 08/05/24 21:24 Stool Stool Occult Blood (EDUARD) - Final Occult Blood Positive Physical Exam Const alert, oriented x3, no apparent distress and well nourished; Negative for average body habitus or healthy appearing Constitutional Narrative: Morbidly obese, white male, lying in bed, appears comfortable, does not look toxic, watching television General Appearance: cooperative HEENT normocephalic, head/scalp atraumatic and moist oral mucous membranes Resp normal respiratory effort, no retractions, no use of accessory muscles and clearto auscultation bilaterally Cardio regular rate, regular rhythm, S1 normal heart sound, S2 normal heart sound, no murmurs, no rub, no gallops and no clicks GI normal to inspection, nondistended, normoactive bowel sounds, soft to palpation and non-tender GI Narrative: No significant tenderness noted, Extremity no clubbing, cyanosis or edema Neuro oriented x3, moves all extremities and no focal motor deficits Speech: speech normal Psych affect normal Assessment & Plan Assessment/Plan (1) Bloody diarrhea: (2) Nausea and vomiting: QUALIFIERS: Vomiting type: bilious vomiting Qualified Code(s): R11.14 - Bilious vomiting (3) Supratherapeutic INR: (4) Paroxysmal atrial fibrillation: (5) Obesity (BMI 30-39.9): (6) MARIELLA (obstructive sleep apnea): PLAN: Plan Ongoing diarrhea -Etiology remains unclear at this time -C. difficile is negative -Enteric panel is negative -Lactoferrin is negative -Check sed rate and CRP -Utilizing as needed Imodium, have started on scheduled cholestyramine and Metamucil with no changein stool activity -Has outpatient colonoscopy pending for 08/18/2024 there is no acute reason to perform colonoscopy atthis time. -Given the fact he said no change on current therapy will consult GI-discussed with Dr. Brito Bright red blood per rectum -Highly suspect related to diarrhea and supratherapeutic INR -Hemoglobin is normal with no significant downtrend -No further bleeding despite INR still being elevated -No need for acute scope -CT of his abdomen pelvis did show some abnormalities however clinically it doesnot quite make sense Supratherapeutic INR -Down to 5.9 today from 8 yesterday -Continue to hold Coumadin -Repeat INR in a.m. -No bleeding at this time DM-2 -Increase basal insulin from 30-35 -Fasting sugars are still high -Continue SSI -Continue Accu-Cheks as ordered -Hold home oral agents -Cardiac/carb controlled diet Paroxysmal atrial fibrillation/flutter -Previous failed DCCV in 2021 -History of cryoablation in 2021 -Continue diltiazem and metoprolol -Continue to hold Coumadin due to supratherapeutic INR -Currently in sinus rhythm Essential 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 -Continue home diltiazem -Continue home Lasix -continue home lisinopril -Continue home metoprolol -continue home Aldactone Nonischemic cardiomyopathy -EF has improved -This was suspected to be tachycardia mediated -Continue goal-directed therapy as noted History of tobacco abuse -Remote -Encouraged ongoing cessation History of chronic diastolic heart failure with preserved ejection fraction -Continue home diuretics -Remains euvolemic Restless leg syndrome -Stable Depression -Continue home Wellbutrin Morbid obesity -recommend weight loss -Complicates treatment, prognosis, outcomes DVT prophylaxis -INR remains supratherapeutic CODE STATUS Full code Charges/Coding Visit Charges Inpatient E&M: 88496 Subs Hosp L2 08/08/24 1140 Cosigner Signature (if applicable): CC: ~ Signed [facility]03-27-2025 Progress note Author Annetta Mar [facility] Note Date/Time August 07, 2024 6:2 1pm [facility] Medical Records Department [address] [place] [address] Progress Note - Hospitalist 08/07/24 1807 MR#: [id number] Acct: [id number] Name: PEDRO KARIMI Rep #:[id number] : 1965 58 From: Annetta Mar DO PCP: Dr. Margot Mai MD Status:ADM IN Location: [place] [address] Reason for Visit Reason for Visit: Bright red blood per rectum/diarrhea Subjective Subjective Blood per in stool any longer but still having pretty significant diarrhea. We discussed that his C. difficile was negative his enteric panel was negative ova and parasites are still pending however he has a negative lactoferrin so my suspicion for any infectious etiology is extremely low. He is not taking an significant amount of milk products at this time. He states that his stool is all liquid but like muddy water. Having mild abdominal discomfort but no significant discomfort with palpation on exam. Bowel sounds are normal. Objective Data Objective Data Vital Signs: Vital Signs Temp Pulse Resp BP Pulse Ox O2 Del Method 97.4 F L 69 13 125/71 H 94 Room Air 0327/25 17:37 08/07/24 17:37 08/07/24 17:37 08/07/24 17:37 08/07/24 17:37 08/07/24 17:37 Oxygen Delivery Method Room Air Weight: 137.4 kg Body Mass Index (BMI) 38.9 Intake & Output: Intake and Output for Last 24 Hours 08/05/24 08/06/24 08/07/24 23:59 23:59 23:59 Intake Total 1000 / 1000 2241.33 / 2241.33 1000 / 1000 Balance 1000 / 1000 2241.33 / 2241.33 1000 / 1000 Lab / Micro Data 08/07/24 05:38 08/07/24 05:38 Labs: Laboratory Results - last 24 hr 08/06/24 21:22: Hgb 13.2 08/06/24 21:48: POC Glucose 195 H 08/07/24 05:38: WBC 8.7, RBC 4.92, Hgb 13.4, Hct 40.2, MCV 81.7, MCH 27.2, MCHC 33.3, RDW Std Deviation 43.3, RDW Coeff of Jett 14.7 H, Plt Count 190, MPV 10.8, Neut % (Auto) Not Reportable, Absolute Neuts (auto) 5.4, Absolute Lymphs (auto) 1.48, Total Counted 100, Neutrophils % (Manual) 47, Band Neutrophils % 15 H, Lymphocytes % (Manual) 17 L, Monocytes % (Manual) 9, Eosinophils % (Manual) 2, Metamyelocytes % 6 H, Myelocytes % 1 H, Other Cells % 3, Diff Path Review September, Sodium 135, Potassium 3.4, Chloride 107, Carbon Dioxide 18.4 L, Anion Gap 10, BUN 13, Creatinine 0.76, Estim Creat Clear Calc 156.27, Est GFR (MDRD) Non-Af 104, BUN/Creatinine Ratio 17.6, Glucose 196 H, Calcium 7.3 L, Phosphorus 2.2 L, Magnesium 1.9 08/07/24 06:18: POC Glucose 191 H 08/07/24 08:10: PT 68.7 H, INR 8.0 H* 08/07/24 11:16: POC Glucose 180 H 08/07/24 16:47: POC Glucose 182 H Micro: Microbiology 08/06/24 03:00 Stool Enteric Bacteriology - Final 08/06/24 03:00 Stool Stool Lactoferrin - Final 08/06/24 03:00 Stool Clostridioides difficile (PCR) - Final 08/05/24 21:24 Stool Stool Occult Blood (EDUARD) - Final Occult Blood Positive Physical Exam Const alert, oriented x3, no apparent distress and well nourished; Negative for average body habitus or healthy appearing Constitutional Narrative: Morbidly obese, white male, lying in bed, appears comfortable, does not look toxic General Appearance: cooperative HEENT normocephalic, head/scalp atraumatic and moist oral mucous membranes HEENT Narrative: Mallampati 4 Resp normal respiratory effort, no retractions, no use of accessory muscles and clearto auscultation bilaterally Cardio regular rate, regular rhythm, S1 normal heart sound, S2 normal heart sound, no murmurs, no rub, no gallops and no clicks GI normal to inspection, nondistended, normoactive bowel sounds and soft to palpation GI Narrative: Very minimal diffuse tenderness, despite diarrhea bowel sounds are not hyperactive Extremity normal to inspection, full ROM and no clubbing, cyanosis or edema Neuro oriented x3, moves all extremities and no focal motor deficits Speech: speech normal Psych affect normal Assessment & Plan Assessment/Plan (1) Bloody diarrhea: (2) Nausea and vomiting: QUALIFIERS: Vomiting type: bilious vomiting Qualified Code(s): R11.14 - Bilious vomiting (3) Supratherapeutic INR: (4) Paroxysmal atrial fibrillation: (5) Obesity (BMI 30-39.9): (6) MARIELLA (obstructive sleep apnea): PLAN: Plan Ongoing diarrhea -Etiology is unclear at this time -C. difficile is negative -Enteric panel is negative -Lactoferrin is negative -Utilizing as needed Imodium -Will add Metamucil for bulk forming and cholestyramine -Has outpatient colonoscopy pending for 08/18/2024 there is no acute reason to perform colonoscopy at this time. Bright red blood per rectum -Highly suspect related to diarrhea and supratherapeutic INR -No further bleeding and hemoglobin is stable and in normal range despite INR still being elevated -No need for acute scope -CT of his abdomen pelvis did show some abnormalities however clinically it doesnot quite make sense Supratherapeutic INR -INR is now elevated to 8 -Continue to hold Coumadin -Will give 5 of vitamin K as his INR continues to go up likely related to GI tract issues -Repeat INR in a.m. -No bleeding at this time DM-2 -Continue current dose of insulin -Continue SSI -Continue Accu-Cheks as ordered -Hold home oral agents -Cardiac/carb controlled diet Paroxysmal atrial fibrillation/flutter -Previous failed DCCV in 2021 -History of cryoablation in 2021 -Continue diltiazem and metoprolol -Hold Coumadin due to supratherapeutic INR -Currently in sinus rhythm Essential 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 continue home diltiazem -Continue home Lasix -continue home lisinopril -Continue home metoprolol next-continue home Aldactone Nonischemic cardiomyopathy -EF has improved -This was suspected to be tachycardia mediated -Continue goal-directed therapy as noted History of tobacco abuse -Remote -Encouraged ongoing cessation History of chronic diastolic heart failure with preserved ejection fraction -Continue home diuretics -Currently euvolemic Restless leg syndrome -Stable Depression -Continue home Wellbutrin Morbid obesity -recommend weight loss -Complicates treatment, prognosis, outcomes DVT prophylaxis -INR supratherapeutic CODE STATUS Full code Charges/Coding Visit Charges Inpatient E&M: 05142 Subs Hosp L2 08/07/24 1821 <Electronically signed by Annetta Mar DO> Cosigner Signature (if applicable): CC: ~ Signed [facility] Work Phone: 1(510) 379-326303-27-[address] [facility] Medical Records Department [address] [place] [address] Progress Note - Hospitalist 08/07/24 1807 MR#: [id number] Acct: [id number] Name: PEDRO KARIMI Rep #:[id number] : 1965 58 From: Annetta Mar DO PCP: Dr. Margot Mai MD Status:ADM IN Location: [place] [id number] [id number] Reason for Visit Reason for Visit: Bright red blood per rectum/diarrhea Subjective Subjective Blood per in stool any longer but still having pretty significant diarrhea. We discussed that his C. difficile was negative his enteric panel was negative ova and parasites are still pending however he has a negative lactoferrin so my suspicion for any infectious etiology is extremely low. He is not taking an significant amount of milk products at this time. He states that his stool is all liquidbut like muddy water. Having mild abdominal discomfort but no significant discomfort with palpationon exam. Bowel sounds are normal. Objective Data Objective Data Vital Signs: Vital Signs Temp Pulse Resp BP Pulse Ox O2 Del Method 97.4 F L 69 13 125/71 H 94 Room Air 08/07/24 17:37 08/07/24 17:37 08/07/24 17:37 08/07/24 17:37 08/07/24 17:37 08/07/24 17:37 Oxygen Delivery Method Room Air Weight: 137.4 kg Body Mass Index (BMI) 38.9 Intake & Output: Intake and Output for Last 24 Hours 08/05/24 08/06/24 08/07/24 23:59 23:59 23:59 Intake Total 1000 / 1000 2241.33 / 2241.33 1000 / 1000 Balance 1000 / 1000 2241.33 / 2241.33 1000 / 1000 Lab / Micro Data 08/07/24 05:38 08/07/24 05:38 Labs: Laboratory Results - last 24 hr 08/06/24 21:22: Hgb 13.2 08/06/24 21:48: POC Glucose 195 H 08/07/24 05:38: WBC 8.7, RBC 4.92, Hgb 13.4, Hct 40.2, MCV 81.7, MCH 27.2, MCHC 33.3, RDW Std Deviation 43.3, RDW Coeff of Jett 14.7 H, Plt Count 190, MPV 10.8, Neut % (Auto) Not Reportable, Absolute Neuts (auto) 5.4, Absolute Lymphs (auto) 1.48, Total Counted 100, Neutrophils % (Manual) 47, Band Neutrophils % 15 H, Lymphocytes % (Manual) 17 L, Monocytes % (Manual) 9, Eosinophils % (Manual) 2, Metamyelocytes % 6 H, Myelocytes % 1 H, Other Cells % 3, Diff Path Review May foll, Sodium 135, Potassium 3.4, Chloride 107, Carbon Dioxide 18.4 L, Anion Gap 10, BUN 13, Creatinine 0.76, Estim Creat Clear Calc 156.27, Est GFR (MDRD) Non- Af 104, BUN/Creatinine Ratio 17.6, Glucose 196 H, Calcium 7.3 L, Phosphorus 2.2 L, Magnesium 1.9 08/07/24 06:18: POC Glucose 191 H 08/07/24 08:10: PT 68.7 H, INR 8.0 H* 08/07/24 11:16: POC Glucose 180 H 08/07/24 16:47: POC Glucose 182 H Micro: Microbiology 08/06/24 03:00 Stool Enteric Bacteriology - Final 08/06/24 03:00 Stool Stool Lactoferrin - Final 08/06/24 03:00 Stool Clostridioides difficile (PCR) - Final 08/05/24 21:24 Stool Stool Occult Blood (EDUARD) - Final Occult Blood Positive Physical Exam Const alert, oriented x3, no apparent distress and well nourished; Negative for average body habitus or healthy appearing Constitutional Narrative: Morbidly obese, white male, lying in bed, appears comfortable, does not look toxic General Appearance: cooperative HEENT normocephalic, head/scalp atraumatic and moist oral mucous membranes HEENT Narrative: Mallampati 4 Resp normal respiratory effort, no retractions, no use of accessory muscles and clearto auscultation bilaterally Cardio regular rate, regular rhythm, S1 normal heart sound, S2 normal heart sound, no murmurs, no rub, no gallops and no clicks GI normal to inspection, nondistended, normoactive bowel sounds and soft to palpation GI Narrative: Very minimal diffuse tenderness, despite diarrhea bowel sounds are not hyperactive Extremity normal to inspection, full ROM and no clubbing, cyanosis or edema Neuro oriented x3, moves all extremities and no focal motor deficits Speech: speech normal Psych affect normal Assessment & Plan Assessment/Plan (1) Bloody diarrhea: (2) Nausea and vomiting: QUALIFIERS: Vomiting type: bilious vomiting Qualified Code(s): R11.14 - Bilious vomiting (3) Supratherapeutic INR: (4) Paroxysmal atrial fibrillation: (5) Obesity (BMI 30-39.9): (6) MARIELLA (obstructive sleep apnea): PLAN: Plan Ongoing diarrhea -Etiology is unclear at this time -C. difficile is negative -Enteric panel is negative -Lactoferrin is negative -Utilizing as needed Imodium -Will add Metamucil for bulk forming and cholestyramine -Has outpatient colonoscopy pending for 08/18/2024 there is no acute reason to perform colonoscopy atthis time. Bright red blood per rectum -Highly suspect related to diarrhea and supratherapeutic INR -No further bleeding and hemoglobin is stable and in normal range despite INR still being elevated -No need for acute scope -CT of his abdomen pelvis did show some abnormalities however clinically it doesnot quite make sense Supratherapeutic INR -INR is now elevated to 8 -Continue to hold Coumadin -Will give 5 of vitamin K as his INR continues to go up likely related to GI tract issues -Repeat INR in a.m. -No bleeding at this time DM-2 -Continue current dose of insulin -Continue SSI -Continue Accu-Cheks as ordered -Hold home oral agents -Cardiac/carb controlled diet Paroxysmal atrial fibrillation/flutter -Previous failed DCCV in 2021 -History of cryoablation in 2021 -Continue diltiazem and metoprolol -Hold Coumadin due to supratherapeutic INR -Currently in sinus rhythm Essential 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 continue home diltiazem -Continue home Lasix -continue home lisinopril -Continue home metoprolol next-continue home Aldactone Nonischemic cardiomyopathy -EF has improved -This was suspected to be tachycardia mediated -Continue goal-directed therapy as noted History of tobacco abuse -Remote -Encouraged ongoing cessation History of chronic diastolic heart failure with preserved ejection fraction -Continue home diuretics -Currently euvolemic Restless leg syndrome -Stable Depression -Continue home Wellbutrin Morbid obesity -recommend weight loss -Complicates treatment, prognosis, outcomes DVT prophylaxis -INR supratherapeutic CODE STATUS Full code Charges/Coding Visit Charges Inpatient E&M: 37384 Subs Hosp L2 08/07/24 1821 Cosigner Signature (if applicable): CC: ~ Signed [facility]03-26-2025 Progress note Author Annetta Mar [facility] Note Date/Time August 06, 2024 5:2 6pm [facility] Medical Records Department [address] [place] [address] Progress Note - Hospitalist 08/06/24 1718 MR#: [id number] Acct: [id number] Name: PEDRO KARIMI Rep #:[id number] : 1965 58 From: Annetta Mar DO PCP: Dr. Margot Mai MD Status:ADM IN Location: [id number] Hospitalist Note Patient is a 58-year-old male who presents emergency department [facility] early this morning on 08/06/2024 with nausea, vomiting, and bloody diarrhea. Patient is on anticoagulation for history of paroxysmal atrialfibrillation. Patient reported that about 3 days prior to presentation he ate an egg which tasted terrible and subsequently developed nonbloody diarrhea. On the evening of 08/05/2024 his stools became darker in color and he also complained of some mild epigastric discomfort and nausea with bilious emesis. He denied any bloody or coffee-ground emesis at the time of presentation. He hadno fever or chills no chest pain palpitations shortness of breath or any significant abdominal pain. His INR was supratherapeutic at the time of presentation of 5.3. Hemoccult was done in the emergency department found to bepositive. Vital signs at presentation showed temperature of 97, heart rate 88, respiratory rate was 20, blood pressure was 06/09/1984 pulse ox was 98% on room air. CBC was unremarkable with a hemoglobin of 15.1. Platelets were normal. He did have some mild bandemia which is improving. His hemoglobin has been relatively stable since admission. And his diarrhea has improved significantly. There is no blood in his diarrhea at this time. I think we can hold off on colonoscopy during his hospitalization as long as his hemoglobin remained stable. The patient does state he has an outpatient colonoscopy scheduled for 08/18/2024. As long as he remains stable I will discharge him tomorrow and have him pursue outpatient colonoscopy. INR 6.5 today so we will continue to hold Coumadin and likely hold at discharge potentially through his colonoscopy. C. difficile is negative. Enteric panel was negative. Ova and parasites is still pending. Will have patient's start diet and see how he does clinically with this as well as trend his hemoglobin. Again if he remains stable clinically we will have him follow-up as an outpatient for colonoscopy on the seventh. 08/06/24 1726 <Electronically signed by Annetta Mar DO> Cosigner Signature (if applicable): CC: ~ Signed [facility] Work Phone: 1(245) 230-954903-26-[address] [facility] Medical Records Department [address] [place] [address] Progress Note - Hospitalist 08/06/24 1718 MR#: [id number] Acct: [id number] Name: PEDRO KARIMI Rep #:[id number] : 1965 58 From: Annetta Mar DO PCP: Dr. Margot Mai MD Status:ADM IN Location: [place] [address] Hospitalist Note Patient is a 58-year-old male who presents emergency department [facility] early this morning on 08/06/2024 with nausea, vomiting, and bloody diarrhea. Patient is on anticoagulation for history of paroxysmal atrialfibrillation. Patient reported that about 3 days prior to presentationhe ate an egg which tasted terrible and subsequently developed nonbloody diarrhea. On the evening of 08/05/2024 his stools became darker in color and he also complained of some mild epigastric discomfort and nausea with bilious emesis. He denied any bloody or coffee-ground emesis at the time of presentation. He hadno fever or chills no chest pain palpitations shortness of breath or any significantabdominal pain. His INR was supratherapeutic at the time of presentation of 5.3. Hemoccult was donein the emergency department found to bepositive. Vital signs at presentation showed temperature of 97, heart rate 88, respiratory rate was 20, blood pressure was 06/09/1984 pulse ox was 98% on room air. CBC was unremarkable with a hemoglobin of 15.1. Platelets were normal. He did have some mild bandemia which is improving. His hemoglobin has been relatively stable since admission. And his diarrheahas improved significantly. There is no blood in his diarrhea at this time. I think we can hold offon colonoscopy during his hospitalization as long as his hemoglobin remained stable. The patient does state he has an outpatient colonoscopy scheduled for 08/18/2024. As long as he remains stable I will discharge him tomorrow and have him pursue outpatient colonoscopy. INR 6.5 today so we will continue to hold Coumadin and likely hold at discharge potentially through his colonoscopy. C. difficile is negative. Enteric panel was negative. Ova and parasites is still pending. Will have patient's start diet and see how he does clinically with this as well as trend his hemoglobin. Again if he remainsstable clinically we will have him follow-up as an outpatient for colonoscopy on the seventh. 08/06/24 1726 Cosigner Signature (if applicable): CC: ~ Signed [facility]03-26-2025 History and physical note Author Yfn Keyes [facility] Note Date/Time August 06, 2024 6:[address] [facility] Medical Records Department [address] [place] [address] H&P Exam - Hospitalist 08/06/24 0107 MR#: [id number] Acct: [id number] Name: PEDRO KARIMI Rep #:[id number] : 1965 58 From: Yfn Ruelas DO PCP: Dr. Margot Mai MD Status:ADM IN Location: [facility] [id number] HPI - General General Date of Admission: 08/06/24 Date of Service: 08/06/24 Chief Complaint: Nausea, Vomiting and Bloody Diarrhea. HPI Narrative PEDRO KARIMI, is a 58 M with a past medical history of essential 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;on lisinopril, metoprolol, spironolactone and furosemide, obesity; with BMI of 37.1 this admission, MARIELLA; on CPAP, former tobacco abuse, DM-2; of unknown control on metformin and insulin glargine 30 units sq twice daily, history of paroxysmal atrial fibrillation/flutter; with history of failed DCCV (10/2021) andhistory of cryoablation (02/2022) on diltiazem and warfarin, history of chronic diastolic CHF; with preserved LVEF, history of nonischemic cardiomyopathy, RLS, history of MRSA on extremities (2020), depression; on bupropion twice daily, history of hernia; s/p repair and history of diverticulosis and multiple colon polyps; s/p colonoscopy by Dr. Tamayo in May 2022 who presents to [facility] ER complaining of nausea, vomiting and bloody diarrhea. Mr. Karimi reports his symptoms began 3 days ago after eating egg which tasted terrible with subsequent development of initially nonbloody diarrhea. Then on the evening of August 05, 2024 his stools became more dark in color. He also admits to mild epigastric discomfort due to nausea and bilious emesis earlier today but he denies bloody or coffee-ground emesis. He states he has persistenttaste abnormality residual from his recent rotten egg ingestion that has lasted ~3 days. He denies recent antibiotic use or known sick contacts. He also denies associated fever, chills, chest pain, palpitations, heart racing shortness of breath, headache or rash. In the ER he was noted to have supratherapeutic INR of 5.3 present on admission with corresponding Hemoccult positive stools due to Adverse Drug Reaction to warfarin causing Bloody Diarrheafollowed by a CT scan of the abdomen pelvis with IV contrast that revealed limited examination due to contrast bolus timing with increased density within the small bowel and large bowel which may represent areas of active bleeding with GI input recommended. He was then admitted to the PCU for ongoing care fora stay that is expected to extend beyond 2 midnights. [facility] Medical History Wears glasses MRSA infection Insulin dependent diabetes mellitus Restless legs Former smoker CPAP (continuous positive airway pressure) dependence Sleep apnea History of echocardiogram Cardiology follow-up encounter History of atrial fibrillation Hx of colonic polyps Non-ischemic cardiomyopathy HFrEF (heart failure with reduced ejection fraction) Persistent atrial fibrillation assisted current use of anticoagulant Essential 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 Atrial fibrillation with rapid ventricular response MARIELLA (obstructive sleep apnea) Diabetes COPD (chronic obstructive pulmonary disease) Home Medications ?Medication ?Instructions ?Recorded ?Last Taken ?Type bupropion HCl 150 mg tablet,12 hr 150 mg PO BID antide pressant 08/14/21 05/23/22 History sustained-release metformin 1,000 mg tablet 1,000 mg PO BID dm 08/14/21 05/23/22 History lisinopril 2.5 mg tablet 2.5 mg PO DAILY 05/22/2204/05 History insulin glargine 100 unit/mL (3 30 unit subcut BID 09/04 Unknown History mL) subcutaneous pen (Lantus Solostar U-100 Insulin) diltiazem HCl 120 mg 120 mg PO DAILY #90 caps Unknown Rx capsule,extended release 24 hr spironolactone 25 mg tablet See Rx Instructions .Route 09/24/23 Unknown Rx .COMPLEX #30 tabs potassium chloride 10 mEq 10 meq PO DAILY #90 tabs 12/05 Unknown Rx tablet,extended release furosemide 40 mg tablet 80 mg PO DAILY 08/05/24 Unkn own History metoprolol tartrate 75 mg tablet 75 mg PO Q12H 5 Unknown History warfarin 2 mg tablet 2 mg PO WETH 08/05/24 Unknow n History warfarin 5 mg tablet 10 mg PO DAILY 08/05/24 Unkn own History Allergy/AdvReac Type Severity Reaction Status Date / Time Penicillins Allergy PT UNSURE Verified 08/05/24 20:31 OF REACTION Family History Other COPD (chronic obstructive pulmonary disease) Colon cancer Heart disease Lung cancer Testicular cancer Surgical History History of cardiac catheterization Status post cryoablation of arrhythmia (03/01/22) History of cardioversion (10/27/21) Bunion H/O hernia repair Social History Smoking Status: Former smoker alcohol intake: never substance use type: does not use caffeine: Yes Type: coffee Number of servings: 1 ROS ROS Narrative Review of Systems: Constitutional: Patient denies fever or chills. Eyes: Patient denies changes in vision or discharge from eyes. ENT: Patient denies runny nose, sore throat or ear pain. Resp: Patient denies shortness of breath or cough. CV: Patient denies chest pain, palpitations, heart racing or lower extremity edema. GI: Patient admits to mild epigastric abdominal pain with nausea and bilious emesis in addition to bloody diarrhea with dark stools as per HPI. : Patient denies dysuria or hematuria. MSK: Patient denies arthralgias or myalgias. Skin: Patient denies rash, abscess, wounds or jaundice. Psych: Patient denies symptoms of uncontrolled depression or anxiety. Neuro: Patient denies headache, paresthesias or focal neurologic deficits. Allergy: Patient denies lip swelling, tongue swelling or urticaria. Hematology: Patient admits to bloody diarrhea as per HPI. Endocrinology: Patient denies polyuria, polydipsia, polyphagia or heat/cold intolerance. 14 point ROS otherwise negative save for positives noted above in HPI. Vital Signs Vital Signs Vital Signs: 08/05/24 20:31 08/05/24 22:00 08/06/24 00:21 Temperature 97 F L 98.6 F Temperature Source Temporal Pulse Rate 88 74 72 Respiratory Rate 20 H 16 14 Blood Pressure 127/85 H 111/67 117/74 Blood Pressure Mean 99 81 88 Pulse Ox 98 97 96 Oxygen Delivery Method Room Air Room Air Weight Weight: 289 lb 0.416 oz Body Mass Index (BMI) 37.0 Physical Exam Const alert, oriented x3 and no apparent distress Constitutional Narrative: Obese. General Appearance: cooperative HEENT normocephalic, head/scalp atraumatic, hearing grossly normal bilaterally and moist oral mucous membranes Eyes PERRL, EOMs intact bilaterally and conjunctivae normal Neck no lymphadenopathy and supple Resp normal respiratory effort, no retractions, no use of accessory muscles and clearto auscultation bilaterally Cardio regular rate and regular rhythm GI normal to inspection, nondistended, normoactive bowel sounds, soft to palpation,non-tender and non-distended Extremity normal to inspection, full ROM and no clubbing, cyanosis or edema Skin Skin Narrative: Patient has evidence of rash, abscess, wounds or jaundice. Neuro oriented x3, CN's II-XII intact bilaterally, moves all extremities and no focal motor deficits Sensorium / Orientation: awake, alert, oriented to person, oriented to place andoriented to time Speech: speech normal Psych affect normal Results Medical Records Data Attestation: I reviewed the patient's medical records Lab / Micro Data Attestation: I reviewed the patient's lab results. 08/05/24 21:20 08/05/24 21:20 Labs: Laboratory Results - last 24 hr 08/05/24 21:20: WBC 7.7, RBC 5.44, Hgb 15.1, Hct 44.9, MCV 82.5, MCH 27.8, MCHC 33.6, RDW Std Deviation 42.5, RDW Coeff of Jett 14.3, Plt Count 207, MPV 11.1, Neut % (Auto) Not Reportable, Absolute Neuts (auto) 4.9, Absolute Lymphs (auto) 1.54, Total Counted 100, Neutrophils % (Manual) 38 L, Band Neutrophils % 26 H, Lymphocytes % (Manual) 20, Monocytes % (Manual) 10, Eosinophils % (Manual) 2, Metamyelocytes % 1, Myelocytes % 3 H, Differential Comment SCANNED, Diff Path Review May foll, Reactive Lymphocytes 2+, PT 50.1 H, INR 5.3 H*, Sodium 133, Potassium 3.4, Chloride 100, Carbon Dioxide 21.5, Anion Gap 12, BUN 19, Creatinine 0.96, Estim Creat Clear Calc 120.72, Est GFR (MDRD) Non-Af 92, BUN/Creatinine Ratio 20.0, Glucose 200 H, Calcium 7.7, Total Bilirubin 0.24, AST12, ALT 9, Alkaline Phosphatase 93, Total Protein 6.5, Albumin 3.6, Globulin 2.8, Albumin/Globulin Ratio 1.3, Lipase 20 08/05/24 22:45: Urine Color Yellow, Urine Clarity Clear, Urine pH 6.0, Ur Specific [employer] 1.010, Urine Protein 30 H, Urine Glucose (UA) Normal, Urine Ketones Negative, Urine Occult Blood 10 H, Urine Nitrite Negative, Urine Bilirubin Negative, Urine Urobilinogen Normal, Ur Leukocyte Esterase 25 H, UrineRBC 0 SEEN, Urine WBC 0 SEEN, Ur Squamous Epith Cells 0 SEEN, Urine Bacteria 0 SEEN, Urine Mucus 0 SEEN 08/05/24 23:20: Lactic Acid < 1.0 Micro: Microbiology 08/05/24 21:24 Stool Stool Occult Blood (EDUARD) - Final Occult Blood Positive Imaging Radiology Impression Abdomen/Pelvis CT 08/05/24 22:08 IMPRESSION: Limited examination due to contrast bolus timing. There are areas of increased density within the small bowel and large bowel as described above. These may represent areas of active bleeding. Although multiphase CT scan of the abdomen may be helpful. In addition, nuclear medicine biliary scan may be helpful to delineate the exact location of the bleeding. Recommend GI input. Red Alert: Limited examination due to contrast bolus timing. There are areas ofincreased density within the small bowel and large bowel as described above. These may represent areas of active bleeding. Although multiphase CT scan of the abdomen may be helpful. In addition, nuclear medicine biliary scan may be helpful to delineate the exact location of the bleeding. Recommend GI input. The critical information above was relayed directly by me by telephone to Jose Juan Gotti on 08/05/2024 at 10:55 pm with readback verification. Reading Location: [facility] Assessment & Plan Assessment/Plan (1) Bloody diarrhea: (2) Nausea and vomiting: QUALIFIERS: Vomiting type: bilious vomiting Qualified Code(s): R11.14 - Bilious vomiting (3) Food poisoning: (4) Supratherapeutic INR: (5) Adverse drug reaction: QUALIFIERS: Encounter type: initial encounter Qualified Code(s): T50.905A - Adverse effect of unspecified drugs, medicaments and biological substances, initial encounter (6) Paroxysmal atrial fibrillation: (7) Hx of colonic polyps: (8) History of diverticulosis: (9) Obesity (BMI 30-39.9): (10) MARIELLA (obstructive sleep apnea): PLAN: Plan 1. Bloody Diarrhea with Nausea and Vomiting causing Bilious Emesis initially triggered by suspected Food Poisoning with CT scan of abdomen/pelvis this admission revealing increased density within the large and small bowel which mayrepresent areas of bleeding - Admit to PCU. Keep strict n.p.o. and start pantoprazole IV drip. Type & screen blood and transfuse for hemoglobin less than 7 g/dL. Check stool studies and placed on enteric precautions. Give ondansetron IV as needed nausea vomiting. Give promethazine IM as needed for breakthrough nausea. Finally, we will consult gastroenterology to see this patient on rounds in the a.m. for further recommendations regarding panendoscopythis admission with help appreciated in advance. 2. Supratherapeutic INR of 5.3 present on admission due to adverse drug reaction to warfarin causing bleeding outlined in #1 - Stop warfarin. Patient treated with vitamin K in ER. Check PT/INR daily. 3. History of paroxysmal atrial fibrillation/flutter; with history of failed DCCV (10/2021) and history of cryoablation (02/2022) on diltiazem and warfarin complicating #1 & #2 - Hold oral medications for now and give IV diltiazem if patient develops atrial fibrillation. 4. History of diverticulosis and multiple colon polyps; s/p colonoscopy by Dr. Tamayo in May 2022 compounding #1 - #3 - Noted. 5. Obesity; with BMI of 37.1 this admission plus MARIELLA; on CPAP adding to the burden of disease outlined from #1 - #4 - Weight loss will be recommended. Check TSH. Hold CPAP to avoid insufflating bowel and potentially worsening bleeding. This complicates his case and may hamper recovery. 6. Essential Hypertension; on lisinopril, metoprolol, spironolactone and furosemide - Hold scheduled antihypertensives until bleeding outlined in #1 has been neutralized and patient restarted on oral intake. Give IV hydralazine as needed for systolic blood pressure greater than 160 mmHg. 7. Former tobacco abuse - Noted. 8. DM-2; of unknown control on metformin and insulin glargine 30 units sq twicedaily - Hold metformin while inpatient in addition to 72 hours after recent contrast dye administration. Cut insulin glargine dose to 10 units subcu daily plus give the lowest intensity SSI. Check hemoglobin A1c to objectively assess quality of diabetic control. 9. History of chronic diastolic CHF; with preserved LVEF - Noted with no signs of volume overload at this time. 10. History of nonischemic cardiomyopathy - Noted. 11. RLS - Stable. 12. History of MRSA on extremities (2020) - Noted with no signs of recurrence at this time. 13. Depression; on bupropion twice daily - Restart this agent when patient is restarted on oral intake. 14. History of hernia; s/p repair - Noted. 15. DVT prophylaxis - Place SCD's. Supratherapeutic INR of 5.3 present on admission also diminishes risk of VTE. Check INR daily. Total time: Approximately (but not less than) 75 minutes. Charges/Coding Visit Charges Inpatient E&M: 99928 Init Hosp L3 08/06/24 0633 <Electronically signed by Yfn Dietz DO> Cosigner Signature (if applicable): CC: Dr. Yfn Dietz DO; Dr. Margot Mai MD~ Signed [facility] Work Phone: [phone]) 463-358103-26-2025 History and physical note [facility] Medical Records Department [address] [place] [address] H&P Exam - Hospitalist 08/06/24106 MR#: [id number] Acct: [id number] Name: PEDRO KARIMI Rep #:[id number] : 1965 58 From: Yfn Ruelas DO PCP: Dr. Margot Mai MD Status:ADM IN Location: [facility] [id number] HPI - General General Date of Admission: 08/06/24 Date of Service: 08/06/24 Chief Complaint: Nausea, Vomiting and Bloody Diarrhea. HPI Haley KARIMI, is a 58 M with a past medical history of essential 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;on lisinopril, metoprolol, spironolactone and furosemide, obesity; with BMI of 37.1 this admission, MARIELLA; on CPAP, former tobacco abuse, DM-2; of unknown control on metformin and insulin glargine 30 units sq twice daily, history of paroxysmal atrial fibrillation/flutter; with history of failed DCCV (10/2021) andhistory of cryoablation (02/2022) on diltiazem and warfarin, history of chronic diastolic CHF; with preserved LVEF, history of nonischemic cardiomyopathy, RLS, history of MRSA on extremities (2020), depression; on bupropion twice daily, history of hernia; s/p repair and history of diverticulosis and multiple colon polyps; s/p colonoscopy by Dr. Tamayo in May 2022 who presents to [facility] ER complaining of nausea, vomiting and bloody diarrhea. Mr. Karimi reports his symptoms began 3 days ago after eating egg which tasted terrible with subsequent development of initially nonbloody diarrhea. Then on the evening of August 05, 2024 his stools became more dark in color. He also admits to mild epigastric discomfort due to nausea and bilious emesis earlier today but he denies bloody or coffee-ground emesis. He states he has persistenttaste abnormality residual from his recent rotten egg ingestion that has lasted ~3 days. He denies recent antibiotic use or known sick contacts. He also denies associated fever, chills, chest pain, palpitations, heart racing shortness of breath, headache or rash. In the ER he was noted to have supratherapeutic INR of 5.3 present on admission with corresponding Hemoccult positive stools due to Adverse Drug Reaction to warfarin causing Bloody Diarrheafollowed by a CT scan of the abdomen pelvis with IV contrast that revealed limited examination due to contrast bolus timing with increased density within the small bowel and large bowel which may represent areas of active bleeding with GI input recommended. He was then admitted to the PCU for ongoing care fora stay that is expected to extend beyond 2 midnights. [facility] Medical History Wears glasses MRSA infection Insulin dependent diabetes mellitus Restless legs Former smoker CPAP (continuous positive airway pressure) dependence Sleep apnea History of echocardiogram Cardiology follow-up encounter History of atrial fibrillation Hx of colonic polyps Non-ischemic cardiomyopathy HFrEF (heart failure with reduced ejection fraction) 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 Essential 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 Atrial fibrillation with rapid ventricular response MARIELLA (obstructive sleep apnea) Diabetes COPD (chronic obstructive pulmonary disease) Home Medications ?Medication ?Instructions ?Recorded ?Last Taken ?Type bupropion HCl 150 mg tablet,12 hr 150 mg PO BID antide pressant 08/14/21 05/23/22 History sustained-release metformin 1,000 mg tablet 1,000 mg PO BID dm 08/14/21 05/23/22 History lisinopril 2.5 mg tablet 2.5 mg PO DAILY 05/22/2204/05 History insulin glargine 100 unit/mL (3 30 unit subcut BID 09/04 Unknown History mL) subcutaneous pen (Lantus Solostar U-100 Insulin) diltiazem HCl 120 mg 120 mg PO DAILY #90 caps Unknown Rx capsule,extended release 24 hr spironolactone 25 mg tablet See Rx Instructions .Route 09/24/23 Unknown Rx .COMPLEX #30 tabs potassium chloride 10 mEq 10 meq PO DAILY #90 tabs 12/05 Unknown Rx tablet,extended release furosemide 40 mg tablet 80 mg PO DAILY 08/05/24 Unkn own History metoprolol tartrate 75 mg tablet 75 mg PO Q12H 5 Unknown History warfarin 2 mg tablet 2 mg PO WETH 08/05/24 Unknow n History warfarin 5 mg tablet 10 mg PO DAILY 08/05/24 Unkn own History Allergy/AdvReac Type Severity Reaction Status Date / Time Penicillins Allergy PT UNSURE Verified 08/05/24 20:31 OF REACTION Family History Other COPD (chronic obstructive pulmonary disease) Colon cancer Heart disease Lung cancer Testicular cancer Surgical History History of cardiac catheterization Status post cryoablation of arrhythmia (03/01/22) History of cardioversion (10/27/21) Bunion H/O hernia repair Social History Smoking Status: Former smoker alcohol intake: never substance use type: does not use caffeine: Yes Type: coffee Number of servings: 1 ROS ROS Narrative Review of Systems: Constitutional: Patient denies fever or chills. Eyes: Patient denies changes in vision or discharge from eyes. ENT: Patient denies runny nose, sore throat or ear pain. Resp: Patient denies shortness of breath or cough. CV: Patient denies chest pain, palpitations, heart racing or lower extremity edema. GI: Patient admits to mild epigastric abdominal pain with nausea and bilious emesis in addition to bloody diarrhea with dark stools as per HPI. : Patient denies dysuria or hematuria. MSK: Patient denies arthralgias or myalgias. Skin: Patient denies rash, abscess, wounds or jaundice. Psych: Patient denies symptoms of uncontrolled depression or anxiety. Neuro: Patient denies headache, paresthesias or focal neurologic deficits. Allergy: Patient denies lip swelling, tongue swelling or urticaria. Hematology: Patient admits to bloody diarrhea as per HPI. Endocrinology: Patient denies polyuria, polydipsia, polyphagia or heat/cold intolerance. 14 point ROS otherwise negative save for positives noted above in HPI. Vital Signs Vital Signs Vital Signs: 08/05/24 20:31 08/05/24 22:00 08/06/24 00:21 Temperature 97 F L 98.6 F Temperature Source Temporal Pulse Rate 88 74 72 Respiratory Rate 20 H 16 14 Blood Pressure 127/85 H 111/67 117/74 Blood Pressure Mean 99 81 88 Pulse Ox 98 97 96 Oxygen Delivery Method Room Air Room Air Weight Weight: 289 lb 0.416 oz Body Mass Index (BMI) 37.0 Physical Exam Const alert, oriented x3 and no apparent distress Constitutional Narrative: Obese. General Appearance: cooperative HEENT normocephalic, head/scalp atraumatic, hearing grossly normal bilaterally and moist oral mucous membranes Eyes PERRL, EOMs intact bilaterally and conjunctivae normal Neck no lymphadenopathy and supple Resp normal respiratory effort, no retractions, no use of accessory muscles and clearto auscultation bilaterally Cardio regular rate and regular rhythm GI normal to inspection, nondistended, normoactive bowel sounds, soft to palpation,non-tender and non-distended Extremity normal to inspection, full ROM and no clubbing, cyanosis or edema Skin Skin Narrative: Patient has evidence of rash, abscess, wounds or jaundice. Neuro oriented x3, CN's II-XII intact bilaterally, moves all extremities and no focal motor deficits Sensorium / Orientation: awake, alert, oriented to person, oriented to place andoriented to time Speech: speech normal Psych affect normal Results Medical Records Data Attestation: I reviewed the patient's medical records Lab / Micro Data Attestation: I reviewed the patient's lab results. 08/05/24 21:20 08/05/24 21:20 Labs: Laboratory Results - last 24 hr 08/05/24 21:20: WBC 7.7, RBC 5.44, Hgb 15.1, Hct 44.9, MCV 82.5, MCH 27.8, MCHC 33.6, RDW Std Deviation 42.5, RDW Coeff of Jett 14.3, Plt Count 207, MPV 11.1, Neut % (Auto) Not Reportable, Absolute Neuts (auto) 4.9, Absolute Lymphs (auto) 1.54, Total Counted 100, Neutrophils % (Manual) 38 L, Band Neutrophils % 26 H, Lymphocytes % (Manual) 20, Monocytes % (Manual) 10, Eosinophils % (Manual) 2, Metamyelocytes % 1, Myelocytes % 3 H, Differential Comment SCANNED, Diff Path Review May foll, Reactive Lymphocytes 2+, PT 50.1 H, INR 5.3 H*, Sodium 133, Potassium 3.4, Chloride 100, Carbon Dioxide 21.5,Anion Gap 12, BUN 19, Creatinine 0.96, Estim Creat Clear Calc 120.72, Est GFR (MDRD) Non-Af 92, BUN/ Creatinine Ratio 20.0, Glucose 200 H, Calcium 7.7, Total Bilirubin 0.24, AST12, ALT 9, Alkaline Phosphatase 93, Total Protein 6.5, Albumin 3.6, Globulin 2.8, Albumin/Globulin Ratio 1.3, Lipase 20 08/05/24 22:45: Urine Color Yellow, Urine Clarity Clear, Urine pH 6.0, Ur Specific [employer] 1.010, Urine Protein 30 H, Urine Glucose (UA) Normal, Urine Ketones Negative, Urine Occult Blood 10 H, UrineNitrite Negative, Urine Bilirubin Negative, Urine Urobilinogen Normal, Ur Leukocyte Esterase 25 H, U rineRBC 0 SEEN, Urine WBC 0 SEEN, Ur Squamous Epith Cells 0 SEEN, Urine Bacteria 0 SEEN, Urine Mucus 0 SEEN 08/05/24 23:20: Lactic Acid < 1.0 Micro: Microbiology 08/05/24 21:24 Stool Stool Occult Blood (EDUARD) - Final Occult Blood Positive Imaging Radiology Impression Abdomen/Pelvis CT 08/05/24 22:08 IMPRESSION: Limited examination due to contrast bolus timing. There are areas of increased density within the small bowel and large bowel as described above. These may represent areas of active bleeding. Although multiphase CT scan of the abdomen may be helpful. In addition, nuclear medicine biliary scan may be helpful to delineate the exact location of the bleeding. Recommend GI input. Red Alert: Limited examination due to contrast bolus timing. There are areas ofincreased density within the small bowel and large bowel as described above. These may represent areas of active bleeding. Although multiphase CT scan of the abdomen may be helpful. In addition, nuclear medicine biliary scan may be helpful to delineate the exact location of the bleeding. Recommend GI input. The critical information above was relayed directly by me by telephone to Jose Juan Gotti on 08/05/2024 at 10:55 pm with readback verification. Reading Location: [id number] Assessment & Plan Assessment/Plan (1) Bloody diarrhea: (2) Nausea and vomiting: QUALIFIERS: Vomiting type: bilious vomiting Qualified Code(s): R11.14 - Bilious vomiting (3) Food poisoning: (4) Supratherapeutic INR: (5) Adverse drug reaction: QUALIFIERS: Encounter type: initial encounter Qualified Code(s): T50.905A - Adverse effect of unspecified drugs, medicaments and biological substances, initial encounter (6) Paroxysmal atrial fibrillation: (7) Hx of colonic polyps: (8) History of diverticulosis: (9) Obesity (BMI 30-39.9): (10) MARIELLA (obstructive sleep apnea): PLAN: Plan 1. Bloody Diarrhea with Nausea and Vomiting causing Bilious Emesis initially triggered by suspectedFood Poisoning with CT scan of abdomen/pelvis this admission revealing increased density within thelarge and small bowel which mayrepresent areas of bleeding - Admit to PCU. Keep strict n.p.o. and start pantoprazole IV drip. Type & screen blood and transfuse for hemoglobin less than 7 g/dL. Check stool studies and placed on enteric precautions. Give ondansetron IV as needed nausea vomiting. Give promethazine IM as needed for breakthrough nausea. Finally, we will consult gastroenterology tosee this patient on rounds in the a.m. for further recommendations regarding panendoscopythis admission with help appreciated in advance. 2. Supratherapeutic INR of 5.3 present on admission due to adverse drug reaction to warfarin causing bleeding outlined in #1 - Stop warfarin. Patient treated with vitamin K in ER. Check PT/INR daily. 3. History of paroxysmal atrial fibrillation/flutter; with history of failed DCCV (10/2021) and history of cryoablation (02/2022) on diltiazem and warfarin complicating #1 & #2 - Hold oral medications for now and give IV diltiazem if patient develops atrial fibrillation. 4. History of diverticulosis and multiple colon polyps; s/p colonoscopy by Dr. Tamayo in May 2022 compounding #1 - #3 - Noted. 5. Obesity; with BMI of 37.1 this admission plus MARIELLA; on CPAP adding to the burden of disease outlined from #1 - #4 - Weight loss will be recommended. Check TSH. Hold CPAP to avoid insufflating boweland potentially worsening bleeding. This complicates his case and may hamper recovery. 6. Essential Hypertension; on lisinopril, metoprolol, spironolactone and furosemide - Hold scheduled antihypertensives until bleeding outlined in #1 has been neutralized and patient restarted on oralintake. Give IV hydralazine as needed for systolic blood pressure greater than 160 mmHg. 7. Former tobacco abuse - Noted. 8. DM-2; of unknown control on metformin and insulin glargine 30 units sq twicedaily - Hold metformin while inpatient in addition to 72 hours after recent contrast dye administration. Cut insulin glargine dose to 10 units subcu daily plus give the lowest intensity SSI. Check hemoglobin A1c to objectively assess quality of diabetic control. 9. History of chronic diastolic CHF; with preserved LVEF - Noted with no signs of volume overload at this time. 10. History of nonischemic cardiomyopathy - Noted. 11. RLS - Stable. 12. History of MRSA on extremities (2020) - Noted with no signs of recurrence at this time. 13. Depression; on bupropion twice daily - Restart this agent when patient is restarted on oral intake. 14. History of hernia; s/p repair - Noted. 15. DVT prophylaxis - Place SCD's. Supratherapeutic INR of 5.3 present on admission also diminishesrisk of VTE. Check INR daily. Total time: Approximately (but not less than) 75 minutes. Charges/Coding Visit Charges Inpatient E&M: 96785 Init Hosp L3 08/06/24 0633 Cosigner Signature (if applicable): CC: Dr. Yfn Dietz DO; Dr. Margot Mai MD~ Signed [facility]03-26-2025 Discharge summary Author Jose Juan Gotti [facility] Note Date/Time August 06, 2024 1:0 9am [facility] Medical Records Department [address] [place] [address] Emergency Department Summary 08/05/24 MR#: [id number] Acct: [id number] Name: PEDRO KARIMI Rep #:[id number] : 1965 58 From: Jose Juan black DO PCP: Dr. Margot Mai MD Status:[facility] ER Location: ED ADDENDUM by Dr. Ameya Rueda DO on 08/06/24 at 0109 Care of the patient was turned over to me pending callback from hospitalist. Case was discussed with the hospitalist. He recommended giving the patient vitamin K. This was ordered. He will admit patient for observation. Patient understood and was agreeable with the plan. All questions were answered. 08/06/24 0109<Electronically signed by Ameya Rueda DO> Cosigner Signature (if applicable): cc: Dr. Margot Mai MD ~* Signed ADDENDUM by Dr. Jose Juan Gotti DO on 08/06/24 at 0041 Hospitalist was paged for admission. Awaiting callback. Patient signed out to night physician who will speak with the hospitalist service for admission. 08/06/24 0041<Electronically signed by Jose Juan Gotti DO> Cosigner Signature (if applicable): cc: Dr. Margot Mai MD ~* Signed HPI History of Present Illness Chief Complaint: Nausea/Vomiting/Diarrhea Narrative Narrative: Chief complaint and HPI: Nausea, vomiting, diarrhea. 58-year-old male with pastmedical history of proximal atrial fibrillation on warfarin, HFrEF, DM, COPD presents for evaluation of nausea, vomiting, diarrhea. Patient states on he ate an egg which he believes was bad as it tasted gross. 3 days agohe developed nonbloody diarrhea. Patient states it has become more dark in color today. He denies any recent antibiotic use. Patient states he is having some nausea and nonbloody emesis today. He denies any fever, chills, shortness of breath, chest pain, dysuria. States he has mild epigastric discomfort from vomiting. Review of systems: See HPI Medications: As listed on the chart Allergies: As listed on the chart PFSH: Per chart Vital signs: As listed on the chart. Reviewed. Physical exam: Gen: A&O x3, NAD Head: Normocephalic, atraumatic Eyes: No sclera icterus, conjunctiva clear ENT: Moist mucous membranes Neck: Trachea midline, No JVD CV: RRR, no murmurs, no peripheral edema Resp: Lungs CTA BL, no w/r/c GI: Abd soft, non-distended, non-tender, no r/r/g Rectal: Normal external examination. No evidence of hemorrhoids or fissures. Normal tone and sensation. No masses, fluctuance, or tenderness. No pain out of proportion. 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 Essential 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 Atrial fibrillation with rapid ventricular response MARIELLA (obstructive sleep apnea) Diabetes COPD (chronic obstructive pulmonary disease) Home Medications ?Medication ?Instructions ?Recorded ?Last Taken ?Type bupropion HCl 150 mg tablet,12 hr 150 mg PO BID antide pressant 08/14/21 05/23/22 History sustained-release metformin 1,000 mg tablet 1,000 mg PO BID dm 08/14/21 05/23/22 History lisinopril 2.5 mg tablet 2.5 mg PO DAILY 05/22/2204/05 History insulin glargine 100 unit/mL (3 30 unit subcut BID 09/04 Unknown History mL) subcutaneous pen (Lantus Solostar U-100 Insulin) diltiazem HCl 120 mg 120 mg PO DAILY #90 caps Unknown Rx capsule,extended release 24 hr spironolactone 25 mg tablet See Rx Instructions .Route 09/24/23 Unknown Rx .COMPLEX #30 tabs potassium chloride 10 mEq 10 meq PO DAILY #90 tabs 12/05 Unknown Rx tablet,extended release furosemide 40 mg tablet 80 mg PO DAILY 08/05/24 Unkn own History metoprolol tartrate 75 mg tablet 75 mg PO Q12H 5 Unknown History warfarin 2 mg tablet 2 mg PO WETH 08/05/24 Unknow n History warfarin 5 mg tablet 10 mg PO DAILY 08/05/24 Unkn own History Allergy/AdvReac Type Severity Reaction Status Date / Time Penicillins Allergy PT UNSURE Verified 08/05/24 20:31 OF REACTION Family History Other COPD (chronic obstructive pulmonary disease) Colon cancer Heart disease Lung cancer Testicular cancer Surgical History History of cardiac catheterization Status post cryoablation of arrhythmia (03/01/22) History of cardioversion (10/27/21) Bunion H/O hernia repair Social History Smoking Status: Former smoker alcohol intake: never substance use type: does not use caffeine: Yes Type: coffee Number of servings: 1 EXAM Physical Exam Const Vital Signs: 08/05/24 20:31 08/05/24 22:00 Temperature 97 F L Temperature Source Temporal Pulse Rate 88 74 Respiratory Rate 20 H 16 Blood Pressure 127/85 H 111/67 Blood Pressure Mean 99 81 Pulse Ox 98 97 Oxygen Delivery Method Room Air Room Air MDM MDM MDM Narrative Medical decision making narrative: 58-year-old male with past medical history of proximal atrial fibrillation on warfarin, HFrEF, DM, COPD presents for evaluation of nausea, vomiting, diarrhea. Differential diagnosis includes but is not limited to viral gastroenteritis, electrolyte abnormality, dehydration, GI bleed, other intra-abdominal pathology,UTI. Patient is abdominal exam is benign therefore do not think any imaging is needed at this time. NS bolus and Zofran ordered for symptoms. Laboratory workup ordered. On chart review, patient had a colonoscopy with Dr. Tamayo May 2022. At that time he had diverticulosis as well as multiple polyps. CBC without leukocytosis or anemia. CMP relatively unremarkable. Lipase unremarkable. UA negative for UTI. Patient's occult is positive. Given his history of diverticulosis with positive occult and vague abdominal pain we will get CT abdomen and pelvis. Will add on lactic acid and INR. Both are pending at this time.CT abdomen pelvis shows areas of increased density within the smalland large bowel. May represent areas of active bleeding. Recommend GI input. Given CT abdomen pelvis findings, I spoke with GI physician, Dr. Brito. Given that patient's vital signs are stable, labs without anemia or elevated BUN to creatinine ratio, and no bright red blood per rectum suspect more of a small bleed than what CT abdomen pelvis read indicates. States this may be infectiousfrom the possible bad egg that he ate. Does not recommend antibiotics as this could be Shigella. INR is still pending at this time. Plan will be for discharge home and follow-up in his office next week if INR unremarkable. Lactic acid unremarkable however INR is elevated at 5.3. On reevaluation, patient states his abdominal pain is improved although he states he has had 2 bowel movements here in the emergency department states they are less dark in color however given that patient has supratherapeutic INR with GI bleed and continued bowel movements I do feel patient would benefit from admission for observation. He is in agreement. He states he does not feel comfortable discharging home. Impression: 1. GI bleed, suspect infectious 2. Supratherapeutic INR on Coumadin 3. Mild dehydration Lab Data Labs: Laboratory Results - last 24 hr 08/05/24 08/05/24 08/05/24 21:20 22:45 23:20 WBC 7.7 RBC 5.44 Hgb 15.1 Hct 44.9 MCV 82.5 MCH 27.8 MCHC 33.6 RDW Std Deviation 42.5 RDW Coeff of Jett 14.3 Plt Count 207 MPV 11.1 Neut % (Auto) Not Reportable Absolute Neuts (auto) 4.9 Absolute Lymphs (auto) 1.54 Total Counted 100 Neutrophils % (Manual) 38 L Band Neutrophils % 26 H Lymphocytes % (Manual) 20 Monocytes % (Manual) 10 Eosinophils % (Manual) 2 Metamyelocytes % 1 Myelocytes % 3 H Differential Comment SCANNED Diff Path Review May foll Reactive Lymphocytes 2+ PT 50.1 H INR 5.3 H* Sodium 133 Potassium 3.4 Chloride 100 Carbon Dioxide 21.5 Anion Gap 12 BUN 19 Creatinine 0.96 Estim Creat Clear Calc 120.72 Est GFR (MDRD) Non-Af 92 BUN/Creatinine Ratio 20.0 Glucose 200 H Lactic Acid < 1.0 Calcium 7.7 Total Bilirubin 0.24 AST 12 ALT 9 Alkaline Phosphatase 93 Total Protein 6.5 Albumin 3.6 Globulin 2.8 Albumin/Globulin Ratio 1.3 Lipase 20 Urine Color Yellow Urine Clarity Clear Urine pH 6.0 Ur Specific [employer] 1.010 Urine Protein 30 H Urine Glucose (UA) Normal Urine Ketones Negative Urine Occult Blood 10 H Urine Nitrite Negative Urine Bilirubin Negative Urine Urobilinogen Normal Ur Leukocyte Esterase 25 H Urine RBC 0 SEEN Urine WBC 0 SEEN Ur Squamous Epith Cells 0 SEEN Urine Bacteria 0 SEEN Urine Mucus 0 SEEN Radiography Diagnostic Testing: Clinical Impression(s) from Imaging Studies Abdomen/Pelvis CT 08/05/24 22:08 IMPRESSION: Limited examination due to contrast bolus timing. There are areas of increased density within the small bowel and large bowel as described above. These may represent areas of active bleeding. Although multiphase CT scan of the abdomen may be helpful. In addition, nuclear medicine biliary scan may be helpful to delineate the exact location of the bleeding. Recommend GI input. Red Alert: Limited examination due to contrast bolus timing. There are areas ofincreased density within the small bowel and large bowel as described above. These may represent areas of active bleeding. Although multiphase CT scan of the abdomen may be helpful. In addition, nuclear medicine biliary scan may be helpful to delineate the exact location of the bleeding. Recommend GI input. The critical information above was relayed directly by me by telephone to Jose Juan Gotti on 08/05/2024 at 10:55 pm with readback verification. Reading Location: [facility] Discharge Plan Triage Chief Complaint: Nausea/Vomiting/Diarrhea ED Provider: Jose Juan Gotti Dx/Rx/DC Orders Prescriptions: No Action bupropion HCl 150 mg tablet sustained-release 12 hr 150 mg PO BID Patient Comments: TAKE 1 TABLET BY MOUTH TWICE DAILY metformin 1,000 mg tablet 1,000 mg PO BID Patient Comments: TAKE 1 TABLET BY MOUTH TWICE DAILY lisinopril 2.5 mg tablet 2.5 mg PO DAILY Patient Comments: TAKE 1 TABLET BY MOUTH ONCE DAILY insulin glargine [Lantus Solostar U-100 Insulin] 100 unit/mL (3 mL) insulin pen 30 unit SUBCUT BID Patient Comments: INJECT 30 UNITS in AM, and 30 UNITS in PM. metoprolol tartrate 75 mg tablet 75 mg PO Q12H furosemide 40 mg tablet 80 mg PO DAILY warfarin 2 mg tablet 2 mg PO WETH Protocol: Dose Management Condition: Sunday Dose/Route: 10 mg Instruction: 2 x 5 mg tablets Condition: Sunday Dose/Route: 10 mg Instruction: 2 x 5 mg tablets Condition: Sunday Dose/Route: 10 mg Instruction: 2 x 5 mg tablets Condition: Sunday Dose/Route: 12 mg Instruction: 1 x 2 mg tablet, 2 x 5 mg tablets Condition: Dose/Route: 12 mg Instruction: 1 x 2 mg tablet, 2 x 5 mg tablets Condition: Sunday Dose/Route: 10 mg Instruction: 2 x 5 mg tablets Condition: Sunday Dose/Route: 10 mg Instruction: 2 x 5 mg tablets Protocol Text: Adjustment Start Date: 06/07/23 INR Value: 3.2 INR Date: 04/28/23 Recheck Date: 06/08/23 Rx Instructions: 2 mg orally daily with a two 5 mg tablet to =12 mg on Sun/; or as directed warfarin 5 mg tablet 10 mg PO DAILY Protocol: Dose Management Condition: Sunday Dose/Route: 10 mg Instruction: 2 x 5 mg tablets Condition: Sunday Dose/Route: 10 mg Instruction: 2 x 5 mg tablets Condition: Sunday Dose/Route: 10 mg Instruction: 2 x 5 mg tablets Condition: Sunday Dose/Route: 12 mg Instruction: 1 x 2 mg tablet, 2 x 5 mg tablets Condition: Dose/Route: 12 mg Instruction: 1 x 2 mg tablet, 2 x 5 mg tablets Condition: Sunday Dose/Route: 10 mg Instruction: 2 x 5 mg tablets Condition: Sunday Dose/Route: 10 mg Instruction: 2 x 5 mg tablets Protocol Text: Adjustment Start Date: 06/07/23 INR Value: 3.2 INR Date: 04/28/23 Recheck Date: 06/08/23 Rx Instructions: Two 5 mg orally daily (10mg daily and 12mg on ); as directed spironolactone 25 mg tablet See Rx Instructions .ROUTE .COMPLEX Qty: 30 12RF Dose Instruction: Take 1 tablet by mouth once daily Rx Instructions: Take 1 tablet by mouth once daily diltiazem HCl 120 mg capsule,extended release 24hr 120 mg PO DAILY Qty: 90 3RF potassium chloride 10 mEq tablet extended release 10 meq PO DAILY Qty: 90 3RF Primary Care Provider: Margot Mai Referrals: Margot Mai MD [Primary Care Provider] - Print Language: [place]an What to do if you have Problems For any increased pain, shortness of breath, bleeding, nausea or vomiting, chestpain, or any unexpected problems, contact your Primary Care Provider. Call [facility] ([phone]) or report to the closest Emergency Room. Call 911 if necessary. 08/06/24 004 <Electronically signed by Jose Juan Gotti DO> Cosigner Signature (if applicable): CC: Dr. Margot Mai MD ~ Signed [facility] Work Phone: [phone] [facility] Medical Records Department [address] [place] [address] Emergency Department Summary 08/05/24 MR#: [id number] Acct: [id number] Name: SACHIPEDROSREE SANTANA Rep #:[id number] : 1965 58 From: Jose Juan black DO PCP: Dr. Margot Mai MD Status:REG ER Location: ED ADDENDUM by Dr. Ameya Rueda DO on 08/06/24 at 0109 Care of the patient was turned over to me pending callback from hospitalist. Case was discussed with the hospitalist. He recommended giving the patient vitamin K. This was ordered. He will admit patient for observation. Patient understood and was agreeable with the plan. All questions were answered. 08/06/24 010 Cosigner Signature (if applicable): cc: Dr. Margot Mai MD ~* Signed ADDENDUM by Dr. Jose Juan Gotti DO on 08/06/24 at 0041 Hospitalist was paged for admission. Awaiting callback. Patient signed out to night physician who will speak with the hospitalist service for admission. 08/06/24 0041 Cosigner Signature (if applicable): cc: Dr. Margot Mai MD ~* Signed HPI History of Present Illness Chief Complaint: Nausea/Vomiting/Diarrhea Narrative Narrative: Chief complaint and HPI: Nausea, vomiting, diarrhea. 58-year-old male with pastmedical history of proximal atrial fibrillation on warfarin, HFrEF, DM, COPD presents for evaluation of nausea, vomiting, diarrhea. Patient states on he ate an egg which he believes was bad as it tasted gross. 3days agohe developed nonbloody diarrhea. Patient states it has become more dark in color today. He denies any recent antibiotic use. Patient states he is having some nausea and nonbloody emesis today. He denies any fever, chills, shortness of breath, chest pain, dysuria. States he has mild epigastric discomfort from vomiting. Review of systems: See HPI Medications: As listed on the chart Allergies: As listed on the chart PFSH: Per chart Vital signs: As listed on the chart. Reviewed. Physical exam: Gen: A&O x3, NAD Head: Normocephalic, atraumatic Eyes: No sclera icterus, conjunctiva clear ENT: Moist mucous membranes Neck: Trachea midline, No JVD CV: RRR, no murmurs, no peripheral edema Resp: Lungs CTA BL, no w/r/c GI: Abd soft, non-distended, non-tender, no r/r/g Rectal: Normal external examination. No evidence of hemorrhoids or fissures. Normal tone and sensation. No masses, fluctuance, or tenderness. No pain out of proportion. : No CVA tenderness Musc: Full ROM, no deformity Skin: Warm, dry Neuro: Alert, oriented, grossly intact, sensation intact Psych: Cooperative, appropriate mood and affect PFSH PFSH Medical History Wears glasses MRSA infection Insulin dependent diabetes mellitus Restless legs Former smoker CPAP (continuous positive airway pressure) dependence Sleep apnea History of echocardiogram Cardiology follow-up encounter History of atrial fibrillation Hx of colonic polyps Non-ischemic cardiomyopathy HFrEF (heart failure with reduced ejection fraction) Persistent atrial fibrillation assisted current use of anticoagulant Essential 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 Atrial fibrillation with rapid ventricular response MARIELLA (obstructive sleep apnea) Diabetes COPD (chronic obstructive pulmonary disease) Home Medications ?Medication ?Instructions ?Recorded ?Last Taken ?Type bupropion HCl 150 mg tablet,12 hr 150 mg PO BID antide pressant 08/14/21 05/23/22 History sustained-release metformin 1,000 mg tablet 1,000 mg PO BID dm 08/14/21 05/23/22 History lisinopril 2.5 mg tablet 2.5 mg PO DAILY 05/22/2204/05 History insulin glargine 100 unit/mL (3 30 unit subcut BID 09/04 Unknown History mL) subcutaneous pen (Lantus Solostar U-100 Insulin) diltiazem HCl 120 mg 120 mg PO DAILY #90 caps Unknown Rx capsule,extended release 24 hr spironolactone 25 mg tablet See Rx Instructions .Route 09/24/23 Unknown Rx .COMPLEX #30 tabs potassium chloride 10 mEq 10 meq PO DAILY #90 tabs 12/05 Unknown Rx tablet,extended release furosemide 40 mg tablet 80 mg PO DAILY 08/05/24 Unkn own History metoprolol tartrate 75 mg tablet 75 mg PO Q12H 5 Unknown History warfarin 2 mg tablet 2 mg PO WETH 08/05/24 Unknow n History warfarin 5 mg tablet 10 mg PO DAILY 08/05/24 Unkn own History Allergy/AdvReac Type Severity Reaction Status Date / Time Penicillins Allergy PT UNSURE Verified 08/05/24 20:31 OF REACTION Family History Other COPD (chronic obstructive pulmonary disease) Colon cancer Heart disease Lung cancer Testicular cancer Surgical History History of cardiac catheterization Status post cryoablation of arrhythmia (03/01/22) History of cardioversion (10/27/21) Bunion H/O hernia repair Social History Smoking Status: Former smoker alcohol intake: never substance use type: does not use caffeine: Yes Type: coffee Number of servings: 1 EXAM Physical Exam Const Vital Signs: 08/05/24 20:31 08/05/24 22:00 Temperature 97 F L Temperature Source Temporal Pulse Rate 88 74 Respiratory Rate 20 H 16 Blood Pressure 127/85 H 111/67 Blood Pressure Mean 99 81 Pulse Ox 98 97 Oxygen Delivery Method Room Air Room Air MDM MDM MDM Narrative Medical decision making narrative: 58-year-old male with past medical history of proximal atrial fibrillation on warfarin, HFrEF, DM, COPD presents for evaluation of nausea, vomiting, diarrhea. Differential diagnosis includes but is not limited to viral gastroenteritis, electrolyte abnormality, dehydration, GI bleed, other intra-abdominal pathology,UTI. Patient is abdominal exam is benign therefore do not think any imaging is needed at this time. NS bolus and Zofran ordered for symptoms. Laboratory workup ordered. On chart review, patient had a colonoscopy with Dr. Tamayo May 2022. At that time he had diverticulosis as well as multiple polyps. CBC without leukocytosis or anemia. CMP relatively unremarkable. Lipase unremarkable. UA negative for UTI. Patient's occult is positive. Given his history of diverticulosis with positive occult and vague abdominal pain we will get CT abdomen and pelvis. Will add on lactic acid and INR. Both are pending at this time.CT abdomen pelvis shows areas of increased density within the smalland large bowel. May represent areas of active bleeding. Recommend GI input. Given CT abdomen pelvis findings, I spoke with GI physician, Dr. Brito. Given that patient's vital signs are stable, labs without anemia or elevated BUN to creatinine ratio, and no bright red blood per rectum suspect more of a small bleed than what CT abdomen pelvis read indicates. States this may be infectiousfrom the possible bad egg that he ate. Does not recommend antibiotics as this could be Shigella. INR is still pending at this time. Plan will be for discharge home and follow-up in his office next week if INR unremarkable. Lactic acid unremarkable however INR is elevated at 5.3. On reevaluation, patient states his abdominal pain is improved although he states he has had 2 bowel movements here in theemergency department states they are less dark in color however given that patient has supratherapeutic INR with GI bleed and continued bowel movements I do feel patient would benefit from admission for observation. He is in agreement. He states he does not feel comfortable discharging home. Impression: 1. GI bleed, suspect infectious 2. Supratherapeutic INR on Coumadin 3. Mild dehydration Lab Data Labs: Laboratory Results - last 24 hr 08/05/24 08/05/24 08/05/24 21:20 22:45 23:20 WBC 7.7 RBC 5.44 Hgb 15.1 Hct 44.9 MCV 82.5 MCH 27.8 MCHC 33.6 RDW Std Deviation 42.5 RDW Coeff of Jett 14.3 Plt Count 207 MPV 11.1 Neut % (Auto) Not Reportable Absolute Neuts (auto) 4.9 Absolute Lymphs (auto) 1.54 Total Counted 100 Neutrophils % (Manual) 38 L Band Neutrophils % 26 H Lymphocytes % (Manual) 20 Monocytes % (Manual) 10 Eosinophils % (Manual) 2 Metamyelocytes % 1 Myelocytes % 3 H Differential Comment SCANNED Diff Path Review May foll Reactive Lymphocytes 2+ PT 50.1 H INR 5.3 H* Sodium 133 Potassium 3.4 Chloride 100 Carbon Dioxide 21.5 Anion Gap 12 BUN 19 Creatinine 0.96 Estim Creat Clear Calc 120.72 Est GFR (MDRD) Non-Af 92 BUN/Creatinine Ratio 20.0 Glucose 200 H Lactic Acid < 1.0 Calcium 7.7 Total Bilirubin 0.24 AST 12 ALT 9 Alkaline Phosphatase 93 Total Protein 6.5 Albumin 3.6 Globulin 2.8 Albumin/Globulin Ratio 1.3 Lipase 20 Urine Color Yellow Urine Clarity Clear Urine pH 6.0 Ur Specific [employer] 1.010 Urine Protein 30 H Urine Glucose (UA) Normal Urine Ketones Negative Urine Occult Blood 10 H Urine Nitrite Negative Urine Bilirubin Negative Urine Urobilinogen Normal Ur Leukocyte Esterase 25 H Urine RBC 0 SEEN Urine WBC 0 SEEN Ur Squamous Epith Cells 0 SEEN Urine Bacteria 0 SEEN Urine Mucus 0 SEEN Radiography Diagnostic Testing: Clinical Impression(s) from Imaging Studies Abdomen/Pelvis CT 08/05/24 22:08 IMPRESSION: Limited examination due to contrast bolus timing. There are areas of increased density within the small bowel and large bowel as described above. These may represent areas of active bleeding. Although multiphase CT scan of the abdomen may be helpful. In addition, nuclear medicine biliary scan may be helpful to delineate the exact location of the bleeding. Recommend GI input. Red Alert: Limited examination due to contrast bolus timing. There are areas ofincreased density within the small bowel and large bowel as described above. These may represent areas of active bleeding. Although multiphase CT scan of the abdomen may be helpful. In addition, nuclear medicine biliary scan may be helpful to delineate the exact location of the bleeding. Recommend GI input. The critical information above was relayed directly by me by telephone to Jose Juan Gotti on 08/05/2024 at 10:55 pm with readback verification. Reading Location: [id number] Discharge Plan Triage Chief Complaint: Nausea/Vomiting/Diarrhea ED Provider: Jose Juan Gotti Dx/Rx/DC Orders Prescriptions: No Action bupropion HCl 150 mg tablet sustained-release 12 hr 150 mg PO BID Patient Comments: TAKE 1 TABLET BY MOUTH TWICE DAILY metformin 1,000 mg tablet 1,000 mg PO BID Patient Comments: TAKE 1 TABLET BY MOUTH TWICE DAILY lisinopril 2.5 mg tablet 2.5 mg PO DAILY Patient Comments: TAKE 1 TABLET BY MOUTH ONCE DAILY insulin glargine [Lantus Solostar U-100 Insulin] 100 unit/mL (3 mL) insulin pen 30 unit SUBCUT BID Patient Comments: INJECT 30 UNITS in AM, and 30 UNITS in PM. metoprolol tartrate 75 mg tablet 75 mg PO Q12H furosemide 40 mg tablet 80 mg PO DAILY warfarin 2 mg tablet 2 mg PO WETH Protocol: Dose Management Condition: Sunday Dose/Route: 10 mg Instruction: 2 x 5 mg tablets Condition: Sunday Dose/Route: 10 mg Instruction: 2 x 5 mg tablets Condition: Sunday Dose/Route: 10 mg Instruction: 2 x 5 mg tablets Condition: Sunday Dose/Route: 12 mg Instruction: 1 x 2 mg tablet, 2 x 5 mg tablets Condition: Dose/Route: 12 mg Instruction: 1 x 2 mg tablet, 2 x 5 mg tablets Condition: Sunday Dose/Route: 10 mg Instruction: 2 x 5 mg tablets Condition: Sunday Dose/Route: 10 mg Instruction: 2 x 5 mg tablets Protocol Text: Adjustment Start Date: 06/07/23 INR Value: 3.2 INR Date: 04/28/23 Recheck Date: 06/08/23 Rx Instructions: 2 mg orally daily with a two 5 mg tablet to =12 mg on ; or as directed warfarin 5 mg tablet 10 mg PO DAILY Protocol: Dose Management Condition: Sunday Dose/Route: 10 mg Instruction: 2 x 5 mg tablets Condition: Sunday Dose/Route: 10 mg Instruction: 2 x 5 mg tablets Condition: Sunday Dose/Route: 10 mg Instruction: 2 x 5 mg tablets Condition: Sunday Dose/Route: 12 mg Instruction: 1 x 2 mg tablet, 2 x 5 mg tablets Condition: Dose/Route: 12 mg Instruction: 1 x 2 mg tablet, 2 x 5 mg tablets Condition: Sunday Dose/Route: 10 mg Instruction: 2 x 5 mg tablets Condition: Sunday Dose/Route: 10 mg Instruction: 2 x 5 mg tablets Protocol Text: Adjustment Start Date: 06/07/23 INR Value: 3.2 INR Date: 04/28/23 Recheck Date: 06/08/23 Rx Instructions: Two 5 mg orally daily (10mg daily and 12mg on ); as directed spironolactone 25 mg tablet See Rx Instructions .ROUTE .COMPLEX Qty: 30 12RF Dose Instruction: Take 1 tablet by mouth once daily Rx Instructions: Take 1 tablet by mouth once daily diltiazem HCl 120 mg capsule,extended release 24hr 120 mg PO DAILY Qty: 90 3RF potassium chloride 10 mEq tablet extended release 10 meq PO DAILY Qty: 90 3RF Primary Care Provider: Margot Mai Referrals: Margot Mai MD [Primary Care Provider] - Print Language: Bel[place]an What to do if you have Problems For any increased pain, shortness of breath, bleeding, nausea or vomiting, chestpain, or any unexpected problems, contact your Primary Care Provider. Call [facility] ([phone]) or report tothe closest Emergency Room. Call 911 if necessary. 08/06/24 0041 Cosigner Signature (if applicable): CC: Dr. Margot Mai MD ~ Signed [facility]03-25-2025 Radiology Diagnostic study note [facility] Imaging Services [address] [address] Abdomen/Pelvis W IV Cont ONLY MR#: [id number] Acct: [id number] Name: PEDRO KARIMI Rep #: [id number] : 1965 M 58 From: Eduard Drummond MD PCP: Dr. Margot Mai MD Status: REG ER Study:Abdomen/Pelvis W IV Cont ONLY Date of E xam: 08/05/24 Exam# [id number] Ordering Dr: Jose Juan Menezes DO EXAM: CT of the abdomen and pelvis with IV contrast. CLINICAL HISTORY: GI bleed, diarrhea. COMPARISON: None. TECHNIQUE: CT of the abdomen was performed without IV contrast. Multiplanar reformats wereobtained afterwards. FINDINGS: Calcified granuloma seen within the right lower lung zone. Otherwise the lung bases are clear. There is no free air within the abdomen or pelvis. The liver, gallbladder, spleen, adrenals, pancreas are within normal limits. 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 There is no hydronephrosis present. Urinary bladder is within normal limits. The prostate is nonenlarged. There is no bowel obstruction. Area of increased attenuation seen within the small bowel loop within the left lower abdominal quadrant best seen on image 34/158 and image 80/141. Similar-appearing area is also present within the sigmoid colon best seen on image 47/158. These findings may represent areas of active bleeding. The appendix is normal. Abdominal wall mesh is noted. Multilevel degenerative changes seen within the spine. CT/Abdomen/Pelvis W IV Cont ONLY IMPRESSION: Limited examination due to contrast bolus timing. There are areas of increased density within the small bowel and large bowel as described above. These may represent areas of active bleeding. Although multiphase CT scan of the abdomen may be helpful. In addition, nuclear medicine biliary scan may be helpful to delineate the exact location of the bleeding. Recommend GI input. Red Alert: Limited examination due to contrast bolus timing. There are areas ofincreased density within the small bowel and large bowel as described above. These may represent areas of active bleeding. Although multiphase CT scan of the abdomen may be helpful. In addition, nuclear medicine biliary scan may be helpful to delineate the exact location of the bleeding. Recommend GI input. The critical information above was relayed directly by me by telephone to Jose Juan Gotti on 08/05/2024 at 10:55 pm with readback verification. Reading Location: [id number] CC: Dr. Jose Juan Gotti DO; Dr. Margot Mai MD ~ Tour Director: Signed [facility]03-25-2025 Discharge summary Author Jose Juan Gotti [facility] Note Date/Time August 06, 2024 1:0 9am [facility] Medical Records Department [address] [place] [id number] Emergency Department Summary 08/05/24 MR#: [id number] Acct: [id number] Name: PEDRO KARIMI Rep #:[id number] : 1965 58 From: Jose Juan black DO PCP: Dr. Margot Mai MD Status:[facility] ER Location: ED ADDENDUM by Dr. Ameya Rueda DO on 08/06/24 at 0109 Care of the patient was turned over to me pending callback from hospitalist. Case was discussed with the hospitalist. He recommended giving the patient vitamin K. This was ordered. He will admit patient for observation. Patient understood and was agreeable with the plan. All questions were answered. 08/06/24 0109<Electronically signed by Ameya Rueda DO> Cosigner Signature (if applicable): cc: Dr. Margot Mai MD ~* Signed ADDENDUM by Dr. Jose Juan Gotti DO on 08/06/24 at 0041 Hospitalist was paged for admission. Awaiting callback. Patient signed out to night physician who will speak with the hospitalist service for admission. 08/06/24 0041<Electronically signed by Jose Juan Gotti DO> Cosigner Signature (if applicable): cc: Dr. Margot Mai MD ~* Signed HPI History of Present Illness Chief Complaint: Nausea/Vomiting/Diarrhea Narrative Narrative: Chief complaint and HPI: Nausea, vomiting, diarrhea. 58-year-old male with pastmedical history of proximal atrial fibrillation on warfarin, HFrEF, DM, COPD presents for evaluation of nausea, vomiting, diarrhea. Patient states on he ate an egg which he believes was bad as it tasted gross. 3 days agohe developed nonbloody diarrhea. Patient states it has become more dark in color today. He denies any recent antibiotic use. Patient states he is having some nausea and nonbloody emesis today. He denies any fever, chills, shortness of breath, chest pain, dysuria. States he has mild epigastric discomfort from vomiting. Review of systems: See HPI Medications: As listed on the chart Allergies: As listed on the chart PFSH: Per chart Vital signs: As listed on the chart. Reviewed. Physical exam: Gen: A&O x3, NAD Head: Normocephalic, atraumatic Eyes: No sclera icterus, conjunctiva clear ENT: Moist mucous membranes Neck: Trachea midline, No JVD CV: RRR, no murmurs, no peripheral edema Resp: Lungs CTA BL, no w/r/c GI: Abd soft, non-distended, non-tender, no r/r/g Rectal: Normal external examination. No evidence of hemorrhoids or fissures. Normal tone and sensation. No masses, fluctuance, or tenderness. No pain out of proportion. 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 Essential 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 Atrial fibrillation with rapid ventricular response MARIELLA (obstructive sleep apnea) Diabetes COPD (chronic obstructive pulmonary disease) Home Medications ?Medication ?Instructions ?Recorded ?Last Taken ?Type bupropion HCl 150 mg tablet,12 hr 150 mg PO BID antide pressant 08/14/21 05/23/22 History sustained-release metformin 1,000 mg tablet 1,000 mg PO BID dm 08/14/21 05/23/22 History lisinopril 2.5 mg tablet 2.5 mg PO DAILY 05/22/2204/05 History insulin glargine 100 unit/mL (3 30 unit subcut BID 09/04 Unknown History mL) subcutaneous pen (Lantus Solostar U-100 Insulin) diltiazem HCl 120 mg 120 mg PO DAILY #90 caps Unknown Rx capsule,extended release 24 hr spironolactone 25 mg tablet See Rx Instructions .Route 09/24/23 Unknown Rx .COMPLEX #30 tabs potassium chloride 10 mEq 10 meq PO DAILY #90 tabs 12/05 Unknown Rx tablet,extended release furosemide 40 mg tablet 80 mg PO DAILY 08/05/24 Unkn own History metoprolol tartrate 75 mg tablet 75 mg PO Q12H 5 Unknown History warfarin 2 mg tablet 2 mg PO WETH 08/05/24 Unknow n History warfarin 5 mg tablet 10 mg PO DAILY 08/05/24 Unkn own History Allergy/AdvReac Type Severity Reaction Status Date / Time Penicillins Allergy PT UNSURE Verified 08/05/24 20:31 OF REACTION Family History Other COPD (chronic obstructive pulmonary disease) Colon cancer Heart disease Lung cancer Testicular cancer Surgical History History of cardiac catheterization Status post cryoablation of arrhythmia (03/01/22) History of cardioversion (10/27/21) Bunion H/O hernia repair Social History Smoking Status: Former smoker alcohol intake: never substance use type: does not use caffeine: Yes Type: coffee Number of servings: 1 EXAM Physical Exam Const Vital Signs: 08/05/24 20:31 08/05/24 22:00 Temperature 97 F L Temperature Source Temporal Pulse Rate 88 74 Respiratory Rate 20 H 16 Blood Pressure 127/85 H 111/67 Blood Pressure Mean 99 81 Pulse Ox 98 97 Oxygen Delivery Method Room Air Room Air MDM MDM MDM Narrative Medical decision making narrative: 58-year-old male with past medical history of proximal atrial fibrillation on warfarin, HFrEF, DM, COPD presents for evaluation of nausea, vomiting, diarrhea. Differential diagnosis includes but is not limited to viral gastroenteritis, electrolyte abnormality, dehydration, GI bleed, other intra-abdominal pathology,UTI. Patient is abdominal exam is benign therefore do not think any imaging is needed at this time. NS bolus and Zofran ordered for symptoms. Laboratory workup ordered. On chart review, patient had a colonoscopy with Dr. Tamayo May 2022. At that time he had diverticulosis as well as multiple polyps. CBC without leukocytosis or anemia. CMP relatively unremarkable. Lipase unremarkable. UA negative for UTI. Patient's occult is positive. Given his history of diverticulosis with positive occult and vague abdominal pain we will get CT abdomen and pelvis. Will add on lactic acid and INR. Both are pending at this time.CT abdomen pelvis shows areas of increased density within the smalland large bowel. May represent areas of active bleeding. Recommend GI input. Given CT abdomen pelvis findings, I spoke with GI physician, Dr. Brito. Given that patient's vital signs are stable, labs without anemia or elevated BUN to creatinine ratio, and no bright red blood per rectum suspect more of a small bleed than what CT abdomen pelvis read indicates. States this may be infectiousfrom the possible bad egg that he ate. Does not recommend antibiotics as this could be Shigella. INR is still pending at this time. Plan will be for discharge home and follow-up in his office next week if INR unremarkable. Lactic acid unremarkable however INR is elevated at 5.3. On reevaluation, patient states his abdominal pain is improved although he states he has had 2 bowel movements here in the emergency department states they are less dark in color however given that patient has supratherapeutic INR with GI bleed and continued bowel movements I do feel patient would benefit from admission for observation. He is in agreement. He states he does not feel comfortable discharging home. Impression: 1. GI bleed, suspect infectious 2. Supratherapeutic INR on Coumadin 3. Mild dehydration Lab Data Labs: Laboratory Results - last 24 hr 08/05/24 08/05/24 08/05/24 21:20 22:45 23:20 WBC 7.7 RBC 5.44 Hgb 15.1 Hct 44.9 MCV 82.5 MCH 27.8 MCHC 33.6 RDW Std Deviation 42.5 RDW Coeff of Jett 14.3 Plt Count 207 MPV 11.1 Neut % (Auto) Not Reportable Absolute Neuts (auto) 4.9 Absolute Lymphs (auto) 1.54 Total Counted 100 Neutrophils % (Manual) 38 L Band Neutrophils % 26 H Lymphocytes % (Manual) 20 Monocytes % (Manual) 10 Eosinophils % (Manual) 2 Metamyelocytes % 1 Myelocytes % 3 H Differential Comment SCANNED Diff Path Review May foll Reactive Lymphocytes 2+ PT 50.1 H INR 5.3 H* Sodium 133 Potassium 3.4 Chloride 100 Carbon Dioxide 21.5 Anion Gap 12 BUN 19 Creatinine 0.96 Estim Creat Clear Calc 120.72 Est GFR (MDRD) Non-Af 92 BUN/Creatinine Ratio 20.0 Glucose 200 H Lactic Acid < 1.0 Calcium 7.7 Total Bilirubin 0.24 AST 12 ALT 9 Alkaline Phosphatase 93 Total Protein 6.5 Albumin 3.6 Globulin 2.8 Albumin/Globulin Ratio 1.3 Lipase 20 Urine Color Yellow Urine Clarity Clear Urine pH 6.0 Ur Specific [employer] 1.010 Urine Protein 30 H Urine Glucose (UA) Normal Urine Ketones Negative Urine Occult Blood 10 H Urine Nitrite Negative Urine Bilirubin Negative Urine Urobilinogen Normal Ur Leukocyte Esterase 25 H Urine RBC 0 SEEN Urine WBC 0 SEEN Ur Squamous Epith Cells 0 SEEN Urine Bacteria 0 SEEN Urine Mucus 0 SEEN Radiography Diagnostic Testing: Clinical Impression(s) from Imaging Studies Abdomen/Pelvis CT 08/05/24 22:08 IMPRESSION: Limited examination due to contrast bolus timing. There are areas of increased density within the small bowel and large bowel as described above. These may represent areas of active bleeding. Although multiphase CT scan of the abdomen may be helpful. In addition, nuclear medicine biliary scan may be helpful to delineate the exact location of the bleeding. Recommend GI input. Red Alert: Limited examination due to contrast bolus timing. There are areas ofincreased density within the small bowel and large bowel as described above. These may represent areas of active bleeding. Although multiphase CT scan of the abdomen may be helpful. In addition, nuclear medicine biliary scan may be helpful to delineate the exact location of the bleeding. Recommend GI input. The critical information above was relayed directly by me by telephone to Jose Juan Gotti on 08/05/2024 at 10:55 pm with readback verification. Reading Location: [id number] Discharge Plan Triage Chief Complaint: Nausea/Vomiting/Diarrhea ED Provider: Jose Juan Gotti Dx/Rx/DC Orders Prescriptions: No Action bupropion HCl 150 mg tablet sustained-release 12 hr 150 mg PO BID Patient Comments: TAKE 1 TABLET BY MOUTH TWICE DAILY metformin 1,000 mg tablet 1,000 mg PO BID Patient Comments: TAKE 1 TABLET BY MOUTH TWICE DAILY lisinopril 2.5 mg tablet 2.5 mg PO DAILY Patient Comments: TAKE 1 TABLET BY MOUTH ONCE DAILY insulin glargine [Lantus Solostar U-100 Insulin] 100 unit/mL (3 mL) insulin pen 30 unit SUBCUT BID Patient Comments: INJECT 30 UNITS in AM, and 30 UNITS in PM. metoprolol tartrate 75 mg tablet 75 mg PO Q12H furosemide 40 mg tablet 80 mg PO DAILY warfarin 2 mg tablet 2 mg PO WETH Protocol: Dose Management Condition: Sunday Dose/Route: 10 mg Instruction: 2 x 5 mg tablets Condition: Sunday Dose/Route: 10 mg Instruction: 2 x 5 mg tablets Condition: Sunday Dose/Route: 10 mg Instruction: 2 x 5 mg tablets Condition: Sunday Dose/Route: 12 mg Instruction: 1 x 2 mg tablet, 2 x 5 mg tablets Condition: Dose/Route: 12 mg Instruction: 1 x 2 mg tablet, 2 x 5 mg tablets Condition: Sunday Dose/Route: 10 mg Instruction: 2 x 5 mg tablets Condition: Sunday Dose/Route: 10 mg Instruction: 2 x 5 mg tablets Protocol Text: Adjustment Start Date: 06/07/23 INR Value: 3.2 INR Date: 04/28/23 Recheck Date: 06/08/23 Rx Instructions: 2 mg orally daily with a two 5 mg tablet to =12 mg on Sun/; or as directed warfarin 5 mg tablet 10 mg PO DAILY Protocol: Dose Management Condition: Sunday Dose/Route: 10 mg Instruction: 2 x 5 mg tablets Condition: Sunday Dose/Route: 10 mg Instruction: 2 x 5 mg tablets Condition: Sunday Dose/Route: 10 mg Instruction: 2 x 5 mg tablets Condition: Sunday Dose/Route: 12 mg Instruction: 1 x 2 mg tablet, 2 x 5 mg tablets Condition: Dose/Route: 12 mg Instruction: 1 x 2 mg tablet, 2 x 5 mg tablets Condition: Sunday Dose/Route: 10 mg Instruction: 2 x 5 mg tablets Condition: Sunday Dose/Route: 10 mg Instruction: 2 x 5 mg tablets Protocol Text: Adjustment Start Date: 06/07/23 INR Value: 3.2 INR Date: 04/28/23 Recheck Date: 06/08/23 Rx Instructions: Two 5 mg orally daily (10mg daily and 12mg on ); as directed spironolactone 25 mg tablet See Rx Instructions .ROUTE .COMPLEX Qty: 30 12RF Dose Instruction: Take 1 tablet by mouth once daily Rx Instructions: Take 1 tablet by mouth once daily diltiazem HCl 120 mg capsule,extended release 24hr 120 mg PO DAILY Qty: 90 3RF potassium chloride 10 mEq tablet extended release 10 meq PO DAILY Qty: 90 3RF Primary Care Provider: Margot aMi Referrals: Margot Mai MD [Primary Care Provider] - Print Language: [place]an What to do if you have Problems For any increased pain, shortness of breath, bleeding, nausea or vomiting, chestpain, or any unexpected problems, contact your Primary Care Provider. Call [facility] ([phone]) or report to the closest Emergency Room. Call 911 if necessary. 08/06/24 0041 <Electronically signed by Jose Juan Gotti DO> Cosigner Signature (if applicable): CC: Dr. Margot Mai MD ~ Signed [facility] Work Phone: [phone]) 665-601803-17-2025 Evaluation note* Diagnosis Onset Date Resolution Status Admit Date Hx of colonic polyps acute Joel h 2024 2:50pm 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 July 28, 2024 2:50pm History of diverticulosis acute August 06, 2024 1:35am Hx of colonic polyps acute Joel h 2024 1:35am Obesity (BMI 30-39.9) acute Jul 1:35am Paroxysmal atrial fibrillation acute August 06, 2024 1:35am MARIELLA (obstructive sleep apnea) chroni c August 06, 2024 1:35am Adverse drug reaction resolved [facility] 2024 1:35am Bloody diarrhea resolved July 1:35am Food poisoning resolved July 1:35am Nausea and vomiting resolved August 06, 2024 1:35am Supratherapeutic INR resolved Joel h 2024 1:35am History of diverticulosis acute August 12, 2024 2:54pm Diabetes chronic August 12 2:54pm Essential 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 chronic Ap ril 2024 2:54pm 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 August 12, 2024 2:54pm Morbid obesity chronic August 12, 2024 2:54pm Non-ischemic cardiomyopathy chronic August 12, 2024 2:54pm MARIELLA (obstructive sleep apnea) chroni c August 12, 2024 2:54pm Persistent atrial fibrillation chron ic August 12, 2024 2:54pm Anemia acute August 14 8:56am [facility] Work Phone: [phone]) 412-925303-17-2025 Evaluation note* Diagnosis Onset Date Resolution Status Admit Date Hx of colonic polyps acute Joel 2024 2:50pm assisted current use of anticoagulant chronic July 28, 2024 2:50pm History of diverticulosis acute August 06, 2024 1:35am Hx of colonic polyps acute [facility] 2024 1:35am Obesity (BMI 30-39.9) acute [facility] 2024 1:35am Paroxysmal atrial fibrillation acute August 06, 2024 1:35am MARIELLA (obstructive sleep apnea) chroni c August 06, 2024 1:35am Adverse drug reaction resolved [facility] 2024 1:35am Bloody diarrhea resolved July 1:35am Food poisoning resolved July 1:35am Nausea and vomiting resolved August 06, 2024 1:35am Supratherapeutic INR resolved Joel h 2024 1:35am History of diverticulosis acute August 12, 2024 2:54pm Diabetes chronic August 12 2:54pm Essential 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 chronic Ap ril 2024 2:54pm assisted current use of anticoagulant chronic August 12, 2024 2:54pm Morbid obesity chronic August 12, 2024 2:54pm Non-ischemic cardiomyopathy chronic August 12, 2024 2:54pm MARIELLA (obstructive sleep apnea) chroni c August 12, 2024 2:54pm Persistent atrial fibrillation chron ic August 12, 2024 2:54pm Anemia acute August 14 8:56am 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 Service: ? Author Type: Physician Type: Progress Notes Filed: 07/25/2024 17:59 Note Text: Last time saw pcp: not in chart Subjective: Patient presents to clinic c/o painful toenails. They state that the nails are especially painful with shoe gear and pressure. Patient also reports more swelling and occasional pain in left 2nd toe. No other pedal complaints at this time. Patient states no change in medications or medical history since last visit. Objective: Patient presents to clinic ambulating in boots Vasc: DP and PT pulses are palpable bilateral. CFT is less than 5 seconds bilateral. Skin temperature is warm to cool proximal to distal bilateral. There is moderate edema or varicosities noted. Neuro: Protective sensation is decreased to the foot and toes when tested with the 5.07 SWM bilateral. Vibratory sensation is absent at the hallux IPJ bilateral. The hallux is downgoing bilateral. Derm: Nails 1-5 left and 2-5 right are painful, discolored-yellow, thick, crumbly, dystrophic and with subungal debris. Skin is of normal turgor, texture and hair growth is present bilateral. There are callus to left 2nd metatarsal. No ulcerations, scars, verruca or other lesions noted. Ortho: Muscle strength is 5/5 for all pedal groups tested. Ankle joint DF is decreased with the knee extended with no pain or crepitus noted. 1st MPJ ROM is decreased bilateral. Recurrent bunion deformity is noted b/l. + swelling is noted to left 2nd toe Assessment: (B35.1) Onychomycosis (primary encounter diagnosis) (M79.675) Pain in toe of left foot (M79.674) Pain in toe of right foot (E11.42) Diabetic polyneuropathy associated with type 2 diabetes mellitus (HCC) (M20.12) Hallux valgus of left foot (M20.42) Hammer toe of left foot Plan: Patient was seen and evaluated. Nails 1-5 left and 2-5 right were debrided in length and thickness. Discussed removal of toenails pending A1c below 8. Patient was instructed on the continued importance of diabetic foot care along with proper diet and keeping their blood sugar under control to prevent complications. I stressed the importance of avoiding barefoot walking, wearing good shoes and inspection of feet. Discussed swelling of left 2nd toe. Discussed possible plantar plate attenuation/tear or 2nd ray overload due to hallux valgus. Going to try inserts and taping. Offered xrays. Patient declined. Callus reduced to left 2nd metatarsal with dremmel. Patient is to RTC in 3-4 months. Lucas Lutz [facility]03-14-2025 History of Present illness Narrative* Lucas Lutz - 07/25/2024 3:47 PM EDT Last time saw pcp: not in chart Subjective: Patient presents to clinic c/o painful toenails. They state that the nails are especially painful with shoe gear and pressure. Patient also reports more swelling and occasional pain in left 2nd toe. No other pedal complaints at this time. Patient states no change in medications or medical history since last visit. Objective: Patient presents to clinic ambulating in boots Vasc: DP and PT pulses are palpable bilateral. CFT is less than 5 seconds bilateral. Skin temperature is warm to cool proximal to distal bilateral. There is moderate edema or varicosities noted. Neuro: Protective sensation is decreased to the foot and toes when tested with the 5.07 SWM bilateral. Vibratory sensation is absent at the hallux IPJ bilateral. The hallux is downgoing bilateral. Derm: Nails 1-5 left and 2-5 right are painful, discolored-yellow, thick, crumbly, dystrophic and with subungal debris. Skin is of normal turgor, texture and hair growth is present bilateral. There are callus to left 2nd metatarsal. No ulcerations, scars, verruca or other lesions noted. Ortho: Muscle strength is 5/5 for all pedal groups tested. Ankle joint DF is decreased with the knee extended with no pain or crepitus noted. 1st MPJ ROM is decreased bilateral. Recurrent bunion deformity is noted b/l. + swelling is noted to left 2nd toe Assessment: (B35.1) Onychomycosis (primary encounter diagnosis) (M79.675) Pain in toe of left foot (M79.674) Pain in toe of right foot (E11.42) Diabetic polyneuropathy associated with type 2 diabetes mellitus (HCC) (M20.12) Hallux valgus of left foot (M20.42) Hammer toe of left foot Plan: Patient was seen and evaluated. Nails 1-5 left and 2-5 right were debrided in length and thickness. Discussed removal of toenails pending A1c below 8. Patient was instructed on the continued importance of diabetic foot care along with proper diet andkeeping their blood sugar under control to prevent complications. I stressed the importance of avoiding barefoot walking, wearing good shoes and inspection of feet. Discussed swelling of left 2nd toe. Discussed possible plantar plate attenuation/tear or 2nd ray overload due to hallux valgus. Going to try inserts and taping. Offered xrays. Patient declined. Callus reduced to left 2nd metatarsal with dremmel. Patient is to RTC in 3-4 months. Lucas Lutz DPM [facility]03-[facility] Instructions* Patient Instructions* Lucas Lutz - 07/25/2024 3:47 PM EDT Diabetes Foot Care Instructions When you [...] it. Apply a bandage and wear a differentpair of shoes. Take Care of Your Toenails Cut toenails after bathing, when they are soft. Cut toenails straight across and smooth with a nail file. Avoid cutting into the corners of toes. Do not cut cuticles. If you have neuropathy (or decreased sensation in your feet) a grading machine operator should always cut your toenails. Be Careful [...] make sure there are no foreign objects orrough areas. Avoid tight socks. Wear natural-fiber socks [...] Go to your health care provider or grading machine operator to treat these conditions. documented in this encounterHolzer Hospital02-26-2025 Telephone encounter Note * Telephone Encounter - Missy Cruz LPN - 07/09/2024 2:13 PM EST Followed up with Pedro Karimi he stated PCP did a chest x-ray ( that didn't find anything ) shealso prescribed the patient an inhaler. Missy Cruz LPN July 09, 2024 2:15 PM [facility]02-26-2025 Miscellaneous Notes* Telephone Encounter - Missy Cruz LPN - 07/09/2024 2:13 PM EST Followed up with Pedro Karimi he stated PCP did a chest x-ray ( that didn't find anything ) shealso prescribed the patient an inhaler. Missy Cruz LPN July 09, 2024 2:15 PM * Telephone Encounter - Lamar Nogueira MD - 07/09/2024 2:05 PM EST [facility] General Electrophysiology (EP) Reviewed. If he is seeing PCP right away that is acceptable, hopefully nothing serious going on. Lamar Nogueira MD July 09, 2024 2:05 PM * Telephone Encounter - Missy Cruz LPN - 07/09/2024 8:09 AM EST Pedro Karimi states he had a cardioversion on 07/08/24, patient stated he woke up having trouble breathing. Advised patient to go to ER , Patient stated he has an appointment with his PCP [place] and will wait to see what his PCP states. Misys Cruz LPN July 09, 2024 8:12 AM documented in this encounterHolzer Hospital02-26-2025 Telephone encounter Note * Telephone Encounter - Lamar Nogueira MD - 07/09/2024 2:05 PM EST [facility] General Electrophysiology (EP) Reviewed. If he is seeing PCP right away that is acceptable, hopefully nothing serious going on. Lamar Nogueira MD July 09, 2024 2:05 PM [facility]02-26-2025 Radiology Diagnostic study note [facility] [address] [place] [address] [id number] Chest PA and Lateral MR#: [id number] Acct: [id number] Name: PEDRO KARIMI Rep #: [id number] : 1965 M 58 From: Mark Granados MD PCP: Dr. Margot Mai MD Status: REG CLI Study:Chest PA and Lateral Date of Exam: 07/09/24 Exam# [id number] Ordering Dr: Ra amna Galvez HYDROELECTRIC MACHINERY MECHANIC HELPER-C PROCEDURE: CHEST PA AND LATERAL REASON FOR EXAM: AFib. Short of breath. TECHNIQUE: Frontal and lateral views of the chest. COMPARISON: 08/14/2021. FINDINGS: The heart size is borderline in size. Aortic calcifications are noted. Chronic increased interstitial markings are noted without evidence of focal consolidation, pleural effusion or pneumothorax. The visualized osseous structures demonstrate degenerative changes. RAD/Chest PA and Lateral IMPRESSION: Chronic increased interstitial markings are noted without evidence of focal consolidation, pleural effusion or pneumothorax. Findings are similar to the prior study. Correlate clinically to exclude congestive heart failure with pulmonary edema versus chronic interstitial lung disease. Reading Location: [facility] CC: HYDROELECTRIC MACHINERY MECHANIC HELPER-C Lala Galvez; Dr. Margot Mai MD ~ Tour Director: Signed [facility]02-26-2025 Telephone encounter Note* Telephone Encounter - Missy Cruz LPN - 07/09/2024 8:09 AM EST Pedro Karimi states he had a cardioversion on 07/08/24, patient stated he woke up having trouble breathing. Advised patient to go to ER , Patient stated he has an appointment with his PCP in [place] and will wait to see what his PCP states. Missy Cruz LPN July 09, 2024 8:12 AM [facility]02-25-2025 NoteHNO ID: [id number] Author: SHANNAN VILLEGAS RN Service: ? Author Type: Registered Nurse Type: Nursing Progress Note Filed: 07/08/2024 10:07 Note Text: 1006 patient remains NSR home instructions reinforced.[facility]02-25-2025 NoteHNO ID: [id number] Author: SHANNAN VILLEGAS RN Service: ? Author Type: Registered Nurse Type: Nursing Progress Note Filed: 07/08/2024 09:17 Note Text: 0917 patient return to POD, currently NSR, vss HOME instructions initiated, continue to monitor.[facility]02-13-2025 Telephone encounter Note* Telephone Encounter - Denise Patricio LPN - 06/26/2024 3:44 PM EST Spoke to Mr. Karimi about INR's. Patient states he had more then 3 INRs in past year. Patient notedhe had one done in April of 2024 as well. Patient plans to reach out to PCP to have them send that result as well. Patient also notes he plans to have another INR drawn next week as well at this time. Denise Patricio LPN [facility]02-13-2025 Miscellaneous Notes* Telephone Encounter - Denise Patricio LPN - 06/26/2024 3:44 PM EST Spoke to Mr. Karimi about INR's. Patient states he had more then 3 INRs in past year. Patient notedhe had one done in April of 2024 as well. Patient plans to reach out to PCP to have them send that result as well. Patient also notes he plans to have another INR drawn next week as well at this time. Denise Patricio LPN * Telephone Encounter - Claire Holder RN - 06/26/2024 1:59 PM EST PCP faxed most recent INRs 06/25/24= 3.0 04/24/24= 2.9 01/25/24= 2.6 I left message asking pt call our office to confirm if he has only had 3 INR checks in the last year. Claire Holder RN * Telephone Encounter - Claire Holder RN - 06/26/2024 1:58 PM EST Pt's name has been added to chun procedure board. Claire Holder RN * Telephone Encounter - Deisy Smith - 06/26/2024 11:36 AM EST Patient is scheduled for a Cardioversion on 07/[address] Nogueira. The hospital will call the day before between 2-5pm with your arrival time. You should not eat or drink after midnight the day before the procedure. You will need a ice delivery driver when released from the hospital You should continue to take medications as prescribed the morning of the procedure with just a sip of water unless otherwise instructed. *patient to call provider managing insulin for instructions on how/if to hold Spoke with Pedro Karimi on June 26, 2024. Informed of instructions as stated above. Patientverbalized understanding. Deisy Smith documented in this encounterHolzer Hospital02-13-2025 Telephone encounter Note * Telephone Encounter - Claire Holder RN - 06/26/2024 1:59 PM EST PCP faxed most recent INRs 06/25/24= 3.0 04/24/24= 2.9 01/25/24= 2.6 I left message asking pt call our office to confirm if he has only had 3 INR checks in the last year. Claire Holder RN [facility]02-13-2025 Telephone encounter Note* Telephone Encounter - Claire Holder RN - 06/26/2024 1:58 PM EST Pt's name has been added to chun procedure board. Claire Holder RN [facility]02-13-2025 Telephone encounter Note* Telephone Encounter - Deisy Smith - 06/26/2024 11:36 AM EST Patient is scheduled for a Cardioversion on 07/[address] Nogueira. The hospital will call the day before between 2-5pm with your arrival time. You should not eat or drink after midnight the day before the procedure. You will need a ice delivery driver when released from the hospital You should continue to take medications as prescribed the morning of the procedure with just a sip of water unless otherwise instructed. *patient to call provider managing insulin for instructions on how/if to hold Spoke with Pedro Karimi on June 26, 2024. Informed of instructions as stated above. Patientverbalized understanding. Deisy Smith [facility]02-13-2025 Telephone encounter Note* Telephone Encounter - Shameka Matias - 06/26/2024 8:00 AM EST Received INR's from PCP patient wanted Dr. Nogueira to have a copy. Thanks Shameka Matias [facility]02-11-2025 Telephone encounter Note* Telephone Encounter - Lexis Hendrix RN - 06/24/2024 9:53 AM EST Telephone encounter has increase in metoprolol and new prescription was sent. Lexis Hendrix RN [facility]02-11-2025 Miscellaneous Notes* Telephone Encounter - Lexis Hendrix RN - 06/24/2024 9:53 AM EST Telephone encounter has increase in metoprolol and new prescription was sent. Lexis Hendrix RN documented in this encounterHolzer Hospital02-10-2025 Note* Addendum Note - Lamar Nogueira MD - 06/23/2024 7:48 PM ESTAddended by: LAMAR NOGUEIRA on: 06/23/2024 07:48 PM Modules accepted: Orders [facility]02-10-2025 Miscellaneous Notes* Addendum Note - Lamar Nogueira MD - 06/23/2024 7:48 PM ESTAddended by: LAMAR NOGUEIRA on: 06/23/2024 07:48 PM Modules accepted: Orders * Telephone Encounter - Lamar Nogueira MD - 06/23/2024 7:39 PM EST [facility] [place] General Electrophysiology (EP) Procedure request submitted for electrical cardioversion which will be scheduled he. He will needdocumentation of his last month INRs. Procedure request submitted for repeat catheter ablation. This is scheduling out several months. Lamar Nogueira MD June 23, 2024 7:40 PM * Telephone Encounter - Keny Alexander APRN.WILLIAM - 06/23/2024 4:[address] Nogueira, We previously discussed in March 2024 when I saw patient in office that if his 14-day event monitor revealed persistent atrial fibrillation we would move forward with ablation. Unfortunately patient did not have this hooked up until 05/30/2024. Results indicated 100% AF burden with accelerated average rate of 120. Surface echo from 05/20/2024 revealed normal LV size with mildly decreased systolicfunction with an EF of 45%. Moderate biatrial dilatation. I made patient aware his drop in ejectionfraction is likely due to ongoing A-fib with accelerated rates. Discussed with patient increase of Lopressor to 75 mg twice daily. Patient is additionally on diltiazem CD 120 mg daily as well as Coumadin. We discussed potential ablation to which patient is agreeable to. Please advise. Keny Matamoros APRN.CNP June 23, 2024 4:48 PM documented in this encounterHolzer Hospital02-10-2025 Telephone encounter Note * Telephone Encounter - Lamar Nogueira MD - 06/23/2024 7:39 PM EST [facility] [place] General Electrophysiology (EP) Procedure request submitted for electrical cardioversion which will be scheduled he. He will needdocumentation of his last month INRs. Procedure request submitted for repeat catheter ablation. This is scheduling out several months. Lamar Nogueira MD June 23, 2024 7:40 PM [facility]02-10-2025 Telephone encounter Note* Telephone Encounter - Keny Alexander APRN.CNP - 06/23/2024 4:[address] Nogueira, We previously discussed in March 2024 when I saw patient in office that if his 14-day event monitor revealed persistent atrial fibrillation we would move forward with ablation. Unfortunately patient did not have this hooked up until 05/30/2024. Results indicated 100% AF burden with accelerated average rate of 120. Surface echo from 05/20/2024 revealed normal LV size with mildly decreased systolicfunction with an EF of 45%. Moderate biatrial dilatation. I made patient aware his drop in ejectionfraction is likely due to ongoing A-fib with accelerated rates. Discussed with patient increase of Lopressor to 75 mg twice daily. Patient is additionally on diltiazem CD 120 mg daily as well as Coumadin. We discussed potential ablation to which patient is agreeable to. Please advise. Thanks, Keny Alexander APRN.WILLIAM June 23, 2024 4:48 PM [facility]01-17-2025 History of Present illness Narrative* Agueda Garg Registered Radiation Therapist - 05/30/2024 8:00 AM EST Applied 14 day extended wear EKG patch. Pt verbalized understanding of monitor use / diary. documented in this encounterHolzer Hospital01-17-2025 NoteHNO ID: [id number] Author: AGUEDA GARG Registered Radiation Therapist Service: ? Author Type: Registered Radiation Therapist Type: Progress Notes Filed: 05/30/2024 08:20 Note Text: Applied 14 day extended wear EKG patch. Pt verbalized understanding of monitor use / diary.[facility]12-10-2024 Instructions* Patient Instructions* Bolivar Lucas - 04/22/2024 4:12 PM EST Diabetes Foot Care Instructions When you [...] it. Apply a bandage and wear a differentpair of shoes. Take Care of Your Toenails Cut toenails after bathing, when they are soft. Cut toenails straight across and smooth with a nail file. Avoid cutting into the corners of toes. Do not cut cuticles. If you have neuropathy (or decreased sensation in your feet) a grading machine operator should always cut your toenails. Be Careful [...] make sure there are no foreign objects orrough areas. Avoid tight socks. Wear natural-fiber socks [...] Go to your health care provider or grading machine operator to treat these conditions. documented in this encounterHolzer Hospital12-10-2024 NoteHNO ID: [id number] Author: LUCAS LUTZ, ? Service: ? Author Type: Physician Type: Progress Notes Filed: 04/22/2024 18:19 Note Text: Last saw pcp: not in chart Subjective: This 58 year old male presents to clinic for diabetic foot check. Patient has the following complaints: painful toenails. He states the nails on the left foot cause him pain. He would like to discuss removal of his toenails once his A1c is below 8. He is here also with callus of both feet. Patient admits to being diabetic for multiple years now. Patient +B/T/N in feet at [...] prevention atrial fibrillation At risk for stroke [id number] = 2 (CHF, DM) Atypical atrial flutter [...] cryoablation/PVAI for atrial fibrillation 03/01/2022; [facility] Dr. Nogueira Type II or unspecified type diabetes mellitus without mention of complication, uncontrolled 06/12/2008 Current Outpatient Medications Medication Sig metoprolol tartrate, short acting, (LOPRESSOR) 50 mg tablet Take 1 tablet by mouth every 12 hours. metoprolol succinate ER (TOPROL XL) 25 mg 24 hr tablet Take 0.5 tablets by mouth two times a day. dilTIAZem CD (CARDIZEM CD, CARTIA XT) 120 mg 24 hr capsule Take 120 mg by mouth once daily. FREESTYLE ANNEL 2 READER USE DIRECTED TO CHECK AT LEAST 4 TIMES DAILY FREESTYLE ANNEL 2 SENSOR kit USE 1 SENSOR EVERY [...] except Wed and Terri takes 12 mg furosemide (LASIX) 40 mg tablet Take 80 [...] tablet by mouth twice daily with meals. No current facility-administered medications for this visit. ALLERGIES Allergen Reactions Penicillins Rash Had reaction as a baby PAST SURGICAL HISTORY Procedure Laterality Date AFIB ABLATION/PULM VEIN ISOLATION 03/01/2022 balloon catheter cryoablation/PVAI for atrial fibrillation; [facility] Dr. Nogueira CARDIOVERSION, ELECTIVE, ELECTRICAL 10/27/2021 unsuccessful x2 [facility] CARDIOVERSION, ELECTIVE, ELECTRICAL 09/30/2021 [facility] - Unsuccessful CARDIOVERSION, ELECTIVE, ELECTRICAL 09/27/2022 COLONOSCOPY FLX DX W/COLLJ SPEC WHEN PFRMD 2000, 2004 Colonoscopy COLONOSCOPY FLX DX W/COLLJ SPEC WHEN PFRMD 10/14/2010 Colonoscopy/repeat in 10/2015 [facility] CORRECT BUNION,SIMPLE 05/14/[address] Velasquez right CORRECT BUNION,SIMPLE 05/31/2011 Bunion, Left ECHO 08/15/2021 EF 15%- [facility] ECHOCARDIOGRAM 01/20/2022 [facility]; see scanned documents LEFT HEART CATH,PERCUTANEOUS 11/25/2021 no significant CAD; LVEF 20%; [facility] REM LESIO TRUNK,ARM,LEG 1.1 -2.0CM 08/08/2008 Exc. ruptured emilie cyst right upper chest REPAIR INCISIONAL HERNIA,REDUCIBLE RPR UMBILICAL HRNA 5 YRS/> REDUCIBLE 05/14/2000 Hernia repair, umbilical >5yr FAMILY HISTORY Problem Relation Age of Onset Stroke Mother COPD Mother Colon Cancer Father Heart Sister he's not sure, something involving an implant ? pacemaker (more content not included)...[facility]12-10-2024 History of Present illness Narrative* Lucas Lutz - 04/22/2024 3:58 PM EST Last saw pcp: not in chart Subjective: This 58 year old male presents to clinic for diabetic foot check. Patient has the following complaints: painful toenails. He states the nails on the left foot cause him pain. He would like to discuss removal of his toenails once his A1c is below 8. He is here also with callus of both feet. Patient admits to being diabetic for multiple years now. Patient +B/T/N in feet at [...] prevention atrial fibrillation At risk for stroke [id number] = 2 (CHF, DM) Atypical atrial flutter [...] balloon catheter cryoablation/PVAI for atrial fibrillation [facility]2022[facility] Type II or unspecified type diabetes mellitus without mention of complication, uncontrolled 06/12/2008 Current Outpatient Medications Medication Sig metoprolol tartrate, short acting, (LOPRESSOR) 50 mg tablet Take 1 tablet by mouth every 12 hours. metoprolol succinate ER (TOPROL XL) 25 mg 24 hr tablet Take 0.5 tablets by mouth two times a day. dilTIAZem CD (CARDIZEM CD, CARTIA XT) 120 mg 24 hr capsule Take 120 mg by mouth once daily. FREESTYLE ANNEL 2 READER USE DIRECTED TO CHECK AT LEAST 4 TIMES DAILY FREESTYLE ANNEL 2 SENSOR kit USE 1 SENSOR EVERY 14 DAYS. warfarin (COUMADIN) 4 mg tablet Take 8 mg by mouth once daily. insulin glargine (LANTUS SOLOSTAR, BASAGLAR KWIKPEN) 100 unit/mL (3 mL) Inject 50 Units subcutaneously. Once daily insulin lispro (HUMALOG KWIKPEN) 100 unit/mL INJECT 5 TO 15 UNITS SUBCUTANEOUSLY WITH MEALS pen needle, diabetic 31 gauge x ndle USE 4 NEEDLES DAILY warfarin (COUMADIN) 2 mg tablet 10 mg. warfarin (COUMADIN) 5 mg tablet Take 10 mg by mouth once daily. Currently as of 09/27/2022 he takes 10 mg daily except Wed and Terri takes 12 mg furosemide (LASIX) 40 mg tablet Take 80 [...] tablet by mouth twice daily with meals. No current facility-administered medications for this visit. ALLERGIES Allergen Reactions Penicillins Rash Had reaction as a baby PAST SURGICAL HISTORY Procedure Laterality Date AFIB ABLATION/PULM VEIN ISOLATION 03/01/2022 balloon catheter cryoablation/PVAI for atrial fibrillation; [facility] Dr. Nogueira CARDIOVERSION, ELECTIVE, ELECTRICAL 10/27/2021 unsuccessful x2 [facility] CARDIOVERSION, ELECTIVE, ELECTRICAL 09/30/2021 [facility] - Unsuccessful CARDIOVERSION, ELECTIVE, ELECTRICAL 09/27/2022 COLONOSCOPY FLX DX W/COLLJ SPEC WHEN PFRMD 2004 Colonoscopy COLONOSCOPY FLX DX W/COLLJ SPEC WHEN PFRMD 10/14/2010 Colonoscopy/repeat in 10/2015 COLONOSCOPY FLX DX W/COLLJ SPEC WHEN PFRMD 10/29/2015 CORRECT BUNION,SIMPLE 05/14/[address] Velasquez right CORRECT BUNION,SIMPLE 05/31/2011 Bunion, Left ECHO 08/15/2021 EF 15%- [facility] ECHOCARDIOGRAM 01/20/2022 [facility]; see scanned documents LEFT HEART CATH,PERCUTANEOUS 11/25/2021 no significant CAD; LVEF 20%; [facility] REM LESIO TRUNK,ARM,LEG 1.1 -2.0CM [...] Social History Tobacco Use Smoking status: Former Current packs/day: 0.00 Average packs/day: 1 pack/day for 47.2 years (47.2 ttl pk-yrs) Types: Cigarettes Start date: 1974 Quit date: 08/11/2021 Years since quittin.6 Smokeless tobacco: Never Vaping Use Vaping status: Never Used Substance Use Topics Alcohol use: Yes Comment: [...] Objective: Patient presents to clinic ambulating in boots Constitutional: Pt is a well developed 58 year old male who is alert, oriented, [...] Hair growth present. Neuro: Protective sensation is absent to the foot and toes when tested with the 5.07 SWM bilateral.Vibratory sensation is absent at the hallux bilateral. + Significant neurological defecits. Derm: Inspection and palpation performed. Nails 1-5 left and 2-5 right are painful, discolored-yellow, thick, crumbly, dystrophic and with subungal debris. Skin is of normal turgor and texture. Hyperkeratosis noted to b/l hallux and left 2nd metatarsal. NO ulcerations, scars, verruca or other lesions noted. Ortho: Ankle joint DF is decreased with the knee extended and decreased with knee flexed. No pain or crepitus noted. STJ, MTJ ROM are full and free of pain or crepitus. Muscle strength is 5/5 for dorsiflexors, plantarflexors, inverters, everters. Digital deformities include bunion b/l. Assessment: (E11.42) Diabetic polyneuropathy associated with type 2 diabetes mellitus (HCC) (primary encounter diagnosis) (B35.1) Onychomycosis (M79.675) Pain in toe of left foot (M79.674) Pain in toe of right foot (L84) Callus of foot Plan: 1. Patient was seen and evaluated. 2. Patient was instructed on the continued importance of diabetic foot care along with proper diet and keeping their blood sugar under control to prevent complications. Stressed the importance of avoiding barefoot walking, wearing good shoes and daily foot inspection 3. Toenails 1-5 left and 2-5 right debrided in length and thickness. Discussed removal of toenails.This is an option once his sugars are controlled 4. Callus to b/l hallux and left 2nd metatarsal was reduced with 15 blade and dremmel. Contionue with lotion to b/l feet 5. F/u in 3 months or sooner if problems arise Instructions given both oral and written. Lucas Lutz DPM * Christiane Roe LPN - 04/22/2024 3:53 PM EST AMB ROOMING INTAKE FLOWSHEET DATA Risk Screening Do you have concerns about personal safety or safety in the home?: No Patient presents with: Left Foot - Established Patient, Follow Up, Diabetic Foot Check Right Foot - Established Patient, Follow Up, Diabetic Foot Check Christiane Roe LPN documented in [facility] encounterHol[facility]12-[facility]-2024 NoteHNO ID: [id number] Author: CHRISTIANE ROE LPN Service: ? Author Type: LICENSED NURSE Type: Progress Notes Filed: 04/22/2024 18:19 Note Text: AMB ROOMING INTAKE FLOWSHEET DATA Risk Screening Do you have concerns about personal safety or safety in the home?: No Patient presents with: Left Foot - Established Patient, Follow Up, Diabetic Foot Check Right Foot - Established Patient, Follow Up, Diabetic Foot [facility]* Diagnosis Onset Date Resolution Status Admit Date Diabetes chronic April 17, 2024 2:36pm Essential 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 chronic 2023 2:36pm assisted current use of anticoagulant chronic April 17 2:36pm Morbid obesity chronic April 172023 2:36pm Non-ischemic cardiomyopathy chronic April 17, 2024 2:36pm MARIELLA (obstructive sleep apnea) chroni c April 17, 2024 2:36pm Persistent atrial fibrillation chronic April 17 2:36pm Atrial fibrillation with rapid ventricular response noneactive Dece2023 2:36pm [facility] Work Phone: 1(832) 355-267912-05-2024 Evaluation note* Diagnosis Onset Date Resolution Status Admit Date Diabetes chronic April 17, 2024 2:36pm Essential 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 2023 2:36pm 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 April 17 2:36pm Morbid obesity chronic April 172023 2:36pm Non-ischemic cardiomyopathy chronic April 17, 2024 2:36pm MARIELLA (obstructive sleep apnea) chroni c April 17, 2024 2:36pm Persistent atrial fibrillation chron ic April 17, 2024 2:36pm Atrial fibrillation with rap id ventricular response noneactive April 2:36pm Hx of colonic polyps acute 2024 2:50pm assisted current use of anticoagulant chronic July 28, 2024 2:50pm Adverse drug reaction acute Jul 8:30pm Bloody diarrhea acute July 8:30pm Food poisoning acute July 8:30pm History of diverticulosis acute August 05, 2024 8:30pm Hx of colonic polyps acute Joel h 2024 8:30pm Nausea and vomiting acute August 05, 2024 8:30pm Obesity (BMI 30-39.9) acute [facility] 2024 8:30pm Paroxysmal atrial fibrillation acute August 05, 2024 8:30pm Supratherapeutic INR acute Joel h 2024 8:30pm MARIELLA (obstructive sleep apnea) chroni c August 05, 2024 8:30pm [facility] Work Phone: 1(963) 422-162012-05-2024 Evaluation note* Diagnosis Onset Date Resolution Status Admit Date Diabetes chronic April 17, 2024 2:36pm Essential 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 chronic De 2023 2:36pm assisted current use of anticoagulant chronic April 17 2:36pm Morbid obesity chronic April 172023 2:36pm Non-ischemic cardiomyopathy chronic April 17, 2024 2:36pm MARIELLA (obstructive sleep apnea) chroni c April 17, 2024 2:36pm Persistent atrial fibrillation chron ic April 17, 2024 2:36pm Atrial fibrillation with rap id ventricular response noneactive April 2:36pm Hx of colonic polyps acute Joel h 2024 2:50pm assisted current use of anticoagulant chronic July 28, 2024 2:50pm Adverse drug reaction acute [facility] 2024 1:35am Bloody diarrhea acute July 1:35am Food poisoning acute July 1:35am History of diverticulosis acute August 06, 2024 1:35am Hx of colonic polyps acute Joel h 2024 1:35am Nausea and vomiting acute August 06, 2024 1:35am Obesity (BMI 30-39.9) acute [facility] 2024 1:35am Paroxysmal atrial fibrillation acute August 06, 2024 1:35am Supratherapeutic INR acute Joel h 2024 1:35am MARIELLA (obstructive sleep apnea) chroni c August 06, 2024 1:35am [facility] Work Phone: 1(338) 455-384311-22-2024 Telephone encounter Note* Telephone Encounter - Keny Alexander APRN.DOOR HANGER - 04/04/2024 8:23 AM EST Please let patient know per our discussion during his office visit on 03/24/2024 he needs to have an EKG completed. His Coreg was discontinued at that time and he was placed on Toprol XL twice daily for accelerated rates. I do not have the capability of ordering a EKG at [facility]. [place] placed a physical standing order for EKG. I do recommend he follows up with Dr. 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 Please remind patient of importance of having 14-day extended quality assurance monitor hooked up/provide central scheduling's number to arrange. Should monitor reveal persistent atrial fibrillation plan would be to move forward with cardioversion as well as potential repeat catheter ablation. Thanks, Keny Alexander APRN.CNP April 04, 2024 8:26 AM [facility]11-22-[facility] Miscellaneous Notes* Telephone Encounter - Keny Alexander APRN.CNP - 04/04/2024 8:23 AM EST Please let patient know per our discussion during his office visit on 03/24/2024 he needs to have an EKG completed. His Coreg was discontinued at that time and he was placed on Toprol XL twice daily for accelerated rates. I do not have the capability of ordering a EKG at [facility]. [place] placed a physical standing order for EKG. I do recommend he follows up with Dr. 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 Please remind patient of importance of having 14-day extended quality assurance monitor hooked up/provide central scheduling's number to arrange. Should monitor reveal persistent atrial fibrillation plan would be to move forward with cardioversion as well as potential repeat catheter ablation. Thanks, Keny Alexander APRN.CNP April 04, 2024 8:26 AM documented in this encounterHolzer Hospital11-11-2024 Telephone encounter Note * Telephone Encounter - Keny Alexander APRN.CNP - 03/24/2024 8:[address] Nogueira, I saw Pedro in office today. He has been doing well. He is down over 40 pounds since our last visit in March 2023. 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 He has been tolerating this well. Unfortunately EKG showed atrial flutter with RVR today at a rate of 125. Asymptomatic with arrhythmia. He has been off his Coreg for a few months. I discontinued this and started him on Toprol-XL 12.5 mg twice daily. Ordered a 14-day extended quality assurance monitor and requested he have an EKG performed the Dr. Marcus's office in about a week. I spoke with their coordinator Deedee regarding this. We discussed various treatment options including cardioversion, repeat PVI, or drug loading. Patient does not have a preference. Please advise. [place], Keny Alexander APRN.CNP March 24, 2024 8:59 AM [facility]11-11-[facility] Miscellaneous Notes* Telephone Encounter - Keny Alexander APRN.CNP - 03/24/2024 8:[address] Nogueira, I saw Pedro in office today. He has been doing well. He is down over 40 pounds since our last visit in March 2023. 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 He has been tolerating this well. Unfortunately EKG showed atrial flutter with RVR today at a rate of 125. Asymptomatic with arrhythmia. He has been off his Coreg for a few months. I discontinued this and started him on Toprol-XL 12.5 mg twice daily. Ordered a 14-day extended quality assurance monitor and requested he have an EKG performed the Dr. Marcus's office in about a week. I spoke with their coordinator Deedee regarding this. We discussed various treatment options including cardioversion, repeat PVI, or drug loading. Patient does not have a preference. Please advise. Thanks, Keny Alexander APRN.CNP March 24, 2024 8:59 AM documented in this encounterHolzer Hospital11-11-2024 History of Present illness Narrative* Keny Alexander APRN.CNP - 03/24/2024 8:30 AM EST [facility] General Cardiology Electrophysiology PRIMARY CARE PHYSICIAN: Margot Mai [address] [place] [address] CHIEF COMPLAINT: Persistent atrial fibrillation. HISTORY OF PRESENT ILLNESS copied from Dr. Nogueira's office note on 09/17/2023: Mr. Karimi presents for follow up evaluation for arrhythmia. He has [employer], checks his heartrhythm regularly, initially once a week but more recently about once a month. No symptoms suggestive of arrhythmia but he did not have much symptoms previously. He denies chest pain, shortness of breath, orthopnea, palpitations, PND, lightheadedness or syncope. I have confirmed and edited as necessary, the PFSH and ROS obtained by others. Interval History: Mr. Karimi is a pleasant 58-year-old gentleman who presents today for follow-up regarding history of persistent atrial fibrillation. Overall Mr. Karimi reports he has been feeling well. He works for [employer] and is on his feet for 9 hours at a time. He reports his job is physical requiring a lot of lifting and walking. He attributes this to his success as to why has been feeling better and has been able to lose significant amount of weight. Currently down 46 pounds from her visit last year and I congratulated him on this. We did discuss unfortunately he is out of rhythm. He denies any symptoms. EKG showed atrial flutter with a ventricular rate of 125. He did mention he has been off of his Coreg for a few months now. He apparently had requested a refill through his established general continuous pickling line pickler helper to [place] but did not hear back. I advised patient his Coreg is more indicated for blood pressure control we will switch him to Topol XL 12.5 mg twice daily to reduce the excitability of the heart/improve rates. I advised patient I would like to check a 14-day extended quality assurance monitor. I will contact his continuous pickling line pickler helper in [place] and request they perform an EKG in a week. We discussed potential treatment options including cardioversion, repeat catheter ablation, as well as drug loading. Patient verbalized he does not have a preference. Will discuss with attending. Requested patient get a blood pressure cuff and check his BP and heart rate in the mornings after starting Toprol-XL for 1 week. Also requested he check an EKG on Melinta daily. Patient previouslyunderwent cryo PVI in February 2022. He is compliant with his Coumadin taking 10 mg all days of the week except for Wednesdays and when he takes 12 mg. INR is monitored by his PCP every 3 months and he reports most recent of 2.9. Hypothetical follow-up for 6 months. PAST MEDICAL HISTORY Diagnosis Date Anticoagulant long-term use indication: stroke prevention atrial fibrillation At risk for stroke [id number] = 2 (CHF, DM) Atypical atrial flutter [...] balloon catheter cryoablation/PVAI for atrial fibrillation [facility]01[facility]2022[facility] Type II or unspecified type diabetes mellitus without mention of complication, uncontrolled 06/12/2008 PAST SURGICAL HISTORY Procedure Laterality Date AFIB ABLATION/PULM VEIN ISOLATION 03/01/2022 balloon catheter cryoablation/PVAI for atrial fibrillation; [facility] CARDIOVERSION, ELECTIVE, ELECTRICAL 10/27/2021 unsuccessful x2 [facility] CARDIOVERSION, ELECTIVE, ELECTRICAL 09/30/2021 [facility] - Unsuccessful CARDIOVERSION, ELECTIVE, ELECTRICAL 09/27/2022 COLONOSCOPY FLX DX W/COLLJ SPEC WHEN PFRMD 2000, 2004 Colonoscopy COLONOSCOPY FLX DX W/COLLJ SPEC WHEN PFRMD 10/14/2010 Colonoscopy/repeat in 10/2015 COLONOSCOPY FLX DX W/COLLJ SPEC WHEN PFRMD 10/29/2015 CORRECT BUNION,SIMPLE 05/14/[address] Velasquez right CORRECT BUNION,SIMPLE 05/31/2011 Bunion, Left ECHO 08/15/2021 EF 15%- [facility]. [facility] ECHOCARDIOGRAM 01/20/2022 [facility]; see scanned documents LEFT HEART CATH,PERCUTANEOUS 11/25/2021 no significant CAD; LVEF 20%; [facility] REM LESIO TRUNK,ARM,LEG 1.1 -2.0CM 08/08/2008 Exc. ruptured emilie cyst right upper chest REPAIR INCISIONAL HERNIA,REDUCIBLE RPR UMBILICAL HRNA 5 YRS/> REDUCIBLE 05/14/2000 Hernia repair, umbilical >5yr Social History Tobacco Use Smoking status: Former Current packs/day: 0.00 Average packs/day: 1 pack/day for 47.2 years (47.2 ttl pk-yrs) Types: Cigarettes Start date: 1974 Quit date: 08/11/2021 Years since quittin.6 Smokeless tobacco: Never Vaping Use Vaping status: Never Used Substance Use Topics Alcohol use: Yes Comment: [...] Take 120 mg by mouth once daily. warfarin (COUMADIN) 2 mg tablet 10 mg. warfarin (COUMADIN) 5 mg tablet Take 10 mg by mouth once daily. Currently as of 09/27/2022 he takes 10 mg daily except Wed and Terri takes 12 mg furosemide (LASIX) 40 mg tablet Take 80 [...] tablet by mouth twice daily with meals. FREESTYLE ANNEL 2 READER USE DIRECTED TO CHECK AT LEAST 4 TIMES DAILY FREESTYLE ANNEL 2 SENSOR kit USE 1 SENSOR EVERY 14 DAYS. warfarin (COUMADIN) 4 mg tablet Take 8 mg by mouth once daily. (Patient not taking: Reported on 10/11/2023) insulin glargine (LANTUS SOLOSTAR, BASAGLAR KWIKPEN) 100 unit/mL (3 mL) Inject 50 Units subcutaneously. Once daily insulin lispro (HUMALOG KWIKPEN) 100 unit/mL INJECT 5 TO 15 UNITS SUBCUTANEOUSLY WITH MEALS pen needle, diabetic 31 gauge x 15/64 ndle USE 4 NEEDLES DAILY REVIEW OF SYSTEMS: Review of Systems Constitutional: Negative for chills, fatigue and fever. Respiratory: Negative for apnea, cough, chest tightness, shortness of breath and wheezing. Cardiovascular: Negative for chest pain, palpitations and leg swelling. Gastrointestinal: Negative for abdominal distention, abdominal pain, constipation, diarrhea, nauseaand vomiting. Genitourinary: Negative for difficulty urinating, dysuria and hematuria. Musculoskeletal: Negative for arthralgias. Neurological: Negative for dizziness, weakness, light-headedness and headaches. Psychiatric/Behavioral: Negative for agitation, behavioral problems, confusion and suicidal ideas. PHYSICAL EXAMINATION: BP 116/73 Pulse 132 Ht 6' 2 (1.88m) Wt 302 lb (137.0kg) SpO2 97% BMI 38.76 kg/(m^2). Physical Exam Constitutional: Appearance: Normal appearance. He is obese. Cardiovascular: Rate and Rhythm: Regular rhythm. Tachycardia present. Pulses: Normal pulses. Radial pulses are 2+ on the right side and 2+ on the left side. Posterior tibial pulses are 2+ on the right side and 2+ on the left side. Heart sounds: Normal heart sounds. Comments: Atrial flutter with RVR with a ventricular rate of 125. Regularly irregular apically. Pulmonary: Effort: Pulmonary effort is normal. Breath sounds: Normal breath sounds. Abdominal: General: Bowel sounds are normal. Palpations: Abdomen is soft. Musculoskeletal: General: Normal range of motion. Right lower leg: No edema. Left lower leg: No edema. Skin: General: Skin is warm and dry. Neurological: Mental Status: He is alert and oriented to person, place, and time. Psychiatric: Mood and Affect: Mood normal. Behavior: Behavior normal. CARDIOVASCULAR MEDICINE TESTING: EKG 09/17/2023 Normal sinus rhythm with a ventricular rate of 71. Incomplete RBBB. ND 196. QRS 94. QT/QTc 394/428. Echo 01/03/2023 - Exam indication: Atrial fibrillation - There is moderate concentric left ventricular hypertrophy. Left ventricular systolic function is normal. EF = 55 5% (visual est.) Normal left ventricular diastolic function. - The right ventricle is normal in size. Right ventricular systolic function is normal. - There are no significant valvular abnormalities. - The visualized aorta is borderline dilated with a maximal dimension of 4.0 cm. - Definity unavailable. - The patient has not had a prior CC echocardiographic exam for comparison. PLAN AND RECOMMENDATIONS: ASSESSMENT/PLAN: 1. Persistent atrial fibrillation (HCC) - ICD9: 427.31, ICD10: I48.19 (primary diagnosis) 58-year-old gentleman who follows up today for history of persistent atrial flutter as well as atypical atrial flutter. Patient underwent cryo PVI with Dr. Nogueira in February 2022. Most recent echo from December 2022 revealed normal systolic function with an EF of 55%. There were no significant valvular abnormalities. Left atrium normal in size. [id number] of at least 3 secondary to 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, CHF, and diabetes. Current treatment regimen includes diltiazem CD 120 mg daily and Coumadin 12 mg on Wednesdays and with 10 mg all other days. Patient was previously on Coreg however heran out and did not receive refills. Unfortunately EKG today revealed atrial flutter with RVR with a ventricular rate of 125. Discussed potential cardioversion, repeat ablation, or inpatient drug loading. Will discuss with attending. Toprol XL 12.5 mg twice daily ordered. 14-day extended EKG additionally ordered. Requested patient get a blood pressure cuff and check his BP and heart rate in the mornings after starting Toprol-XL for 1 week. Also requested he check an EKG on Melinta daily. As patient is asymptomatic and has been off beta-jada I advised him we could treat him outpatienthe would not require ED visit at this time. Hypothetical follow-up for 6 months. 2. Status post catheter ablation of atrial fibrillation - ICD9: V45.89, ICD10: Z98.890 As above. 3. Atypical atrial flutter (HCC) - ICD9: 427.32, ICD10: I48.4 As above. 4. Chronic HFrEF (heart failure with reduced ejection fraction) (HCC) - ICD9: 428.22, ICD10: I50.22 As above. 5. Essential (primary) 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 - ICD9: 401.9, ICD10: I10 BP today 116/73. 6. MARIELLA on CPAP - ICD9: 327.23, ICD10: G47.33 Compliance with CPAP therapy. 7. At risk for stroke - ICD9: V15.89, ICD10: Z91.89 As above. 8. Obesity, Class III, BMI 40-49.9 (morbid obesity) (HCC) - ICD9: 278.01, ICD10: E66.01 Historical BMI currently listed at 41.98. Return in about 6 months (around 09/21/2024) for Follow up with Dr. Nogueira in 6 months. . Keny Alexander APRN.WILLIAM documented in this encounterHolzer Hospital11-11-2024 NoteHNO ID: [id number] Author: KENY ALEXANDER APRN.CNP Service: ? Author Type: Nurse Practitioner Type: Progress Notes Filed: 03/24/2024 08:51 Note Text: [facility] General Cardiology Electrophysiology PRIMARY CARE PHYSICIAN: Margot Mai [address] [place] [address] CHIEF COMPLAINT: Persistent atrial fibrillation. HISTORY OF PRESENT ILLNESS copied from Dr. Nogueira's office note on 09/17/2023: Mr. Karimi presents for follow up evaluation for arrhythmia. He has [employer], checks his heart rhythm regularly, initially once a week but more recently about once a month. No symptoms suggestive of arrhythmia but he did not have much symptoms previously. He denies chest pain, shortness of breath, orthopnea, palpitations, PND, lightheadedness or syncope. I have confirmed and edited as necessary, the PFSH and ROS obtained by others. Interval History: Mr. Karimi is a pleasant 58-year-old gentleman who presents today for follow-up regarding history of persistent atrial fibrillation. Overall Mr. Karimi reports he has been feeling well. He works for [employer] and is on his feet for 9 hours at a time. He reports his job is physical requiring a lot of lifting and walking. He attributes this to his success as to why has been feeling better and has been able to lose significant amount of weight. Currently down 46 pounds from her visit last year and I congratulated him on this. We did discuss unfortunately he is out of rhythm. He denies any symptoms. EKG showed atrial flutter with a ventricular rate of 125. He did mention he has been off of his Coreg for a few months now. He apparently had requested a refill through his established general continuous pickling line pickler helper to [place] but did not hear back. I advised patient his Coreg is more indicated for blood pressure control we will switch him to Topol XL 12.5 mg twice daily to reduce the excitability of the heart/improve rates. I advised patient I would like to check a 14-day extended quality assurance monitor. I will contact his continuous pickling line pickler helper in [place] and request they perform an EKG in a week. We discussed potential treatment options including cardioversion, repeat catheter ablation, as well as drug loading. Patient verbalized he does not have a preference. Will discuss with attending. Requested patient get a blood pressure cuff and check his BP and heart rate in the mornings after starting Toprol-XL for 1 week. Also requested he check an EKG on Melinta daily. Patient previously underwent cryo PVI in February 2022. He is compliant with his Coumadin taking 10 mg all days of the week except for Wednesdays and when he takes 12 mg. INR is monitored by his PCP every 3 months and he reports most recent of 2.9. Hypothetical follow-up for 6 months. PAST MEDICAL HISTORY Diagnosis Date Anticoagulant long-term use indication: stroke prevention atrial fibrillation At risk for stroke [id number] = 2 (CHF, DM) Atypical atrial flutter (HCC) 06/16/2022 Benign neoplasm of colon 06/12/2008 Tubular adenoma. Chronic fatigue syndrome Chronic HFrEF (heart failure with reduced ejection fraction) (HCC) Depressive disorder, not elsewhere classified 08/03/2012 YOUGN (dyspnea on exertion) Encounter for current long-term [...] cryoablation/PVAI for atrial fibrillation 03/01/2022; [facility] Dr. Nogueira Type II or unspecified type diabetes mellitus without mention of complication, uncontrolled 06/12/2008 PAST SURGICAL HISTORY Procedure Laterality Date AFIB ABLATION/PULM VEIN ISOLATION 03/01/2022 balloon catheter cryoablation/PVAI for atrial fibrillation; [facility] Dr. Nogueira CARDIOVERSION, ELECTIVE, ELECTRICAL 10/27/2021 unsuccessful x2 [facility] CARDIOVERSION, ELECTIVE, ELECTRICAL 09/30/2021 [facility] - Unsuccessful CARDIOVERSION, ELECTIVE, ELECTRICAL 09/27/2022 COLONOSCOPY FLX DX W/COLLJ SPEC WHEN PFRMD 2000, 2004 Colonoscopy COLONOSCOPY FLX DX W/COLLJ SPEC WHEN PFRMD 10/14/2010 Colonoscopy/repeat in 10/2015 COLONOSCOPY FLX DX W/COLLJ SPEC WHEN PFRMD 10/29/2015 CORRECT BUNION,SIMPLE 05/14/[address] Velasquez right CORRECT BUNION,SIMPLE 05/31/2011 Bunion, Left ECHO 08/15/2021 EF 15%- [facility] ECHOCARDIOGRAM 01/20/2022 [facility]; see scanned documents LEFT HEART CATH,PERCUTANEOUS 11/25/2021 no significant CAD; LVEF 20%; [facility] REM LESIO TRUNK,ARM,LEG 1.1 -2.0CM 08/08/2008 Exc. ruptured emilie cyst right upper c (more content not included)...[facility]11-11-2024 Nurse Note* Sulma Montana MA - 03/24/2024 8:19 AM EST Patient has no cardiac complaints today. [facility]11-11-2024 Nurse Note* Sulma Montana MA - 03/24/2024 8:19 AM EST Patient has no cardiac complaints today. documented in [facility] encounterHolzer [facility]09-03-[facility]24 Instructions* Patient Instructions* Lucas Lutz - 01/15/2024 4:32 PM EDT Diabetes Foot Care Instructions When you [...] it. Apply a bandage and wear a differentpair of shoes. Take Care of Your Toenails Cut toenails after bathing, when they are soft. Cut toenails straight across and smooth with a nail file. Avoid cutting into the corners of toes. Do not cut cuticles. If you have neuropathy (or decreased sensation in your feet) a grading machine operator should always cut your toenails. Be Careful [...] make sure there are no foreign objects orrough areas. Avoid tight socks. Wear natural-fiber socks [...] Go to your health care provider or grading machine operator to treat these conditions. documented in this encounterHolzer Hospital09-03-2024 NoteHNO ID: [id number] Author: LUCAS LUTZ, ? Service: ? Author Type: Physician Type: Progress Notes Filed: 01/16/2024 07:43 Note Text: Last saw pcp: not in chart Subjective: Patient presents to clinic c/o painful toenails. They state that the nails are especially painful with shoe gear and pressure. Patient admits to being diabetic. No other pedal complaints at this time. Patient states no change in medications or medical history since last visit. Objective: Patient presents to clinic ambulating in sneakers Vasc: DP and PT pulses are palpable bilateral. CFT is less than 5 seconds bilateral. Skin temperature is warm to cool proximal to distal bilateral. There is no edema or varicosities noted. Neuro: Protective sensation is intact to the foot and toes when tested with the 5.07 SWM bilateral. Vibratory sensation is decreased at the hallux IPJ bilateral. The hallux is downgoing bilateral. Derm: Nails 1-5 left and 2-5 right are painful, discolored-yellow, thick, crumbly, dystrophic and with subungal debris. Skin is of normal turgor, texture and hair growth is present bilateral. There are no hyperkeratosis, ulcerations, scars, verruca or other lesions noted. Healed blister of left hallux. Ortho: Muscle strength is 5/5 for all pedal groups tested. Ankle joint DF is full with the knee extended with no pain or crepitus noted. 1st MPJ ROM is full bilateral. Recurrent hallux valgus deformity b/l. Assessment: (E11.42) Diabetic polyneuropathy associated with type 2 diabetes mellitus (HCC) (primary encounter diagnosis) (B35.1) Onychomycosis (M79.675) Pain in toe of left foot (M79.674) Pain in toe of right foot (L84) Callus of foot Plan: Patient was seen and evaluated. Nails 1-5 left and 2-5 right were debrided in length and thickness. Discussed removal of toenails but needs to have A1c below 8. Discussed healed blister of left hallux. Likely caused by rubbing in shoes. Would recommend wider shoes. Patient was instructed on the continued importance of diabetic foot care along with proper diet and keeping their blood sugar under control to prevent complications. Patient is to RTC in 3-4 months. Lucas Bolivar [facility]09-03-2024 History of Present illness Narrative* Lucas Lutz - 01/15/2024 4:20 PM EDT Last saw pcp: not in chart Subjective: Patient presents to clinic c/o painful toenails. They state that the nails are especially painful with shoe gear and pressure. Patient admits to being diabetic. No other pedal complaints at this time. Patient states no change in medications or medical history since last visit. Objective: Patient presents to clinic [facility] Vasc: DP and PT pulses are palpable bilateral. CFT is less than 5 seconds bilateral. Skin temperature is warm to cool proximal to distal bilateral. There is no edema or varicosities noted. Neuro: Protective sensation is intact to the foot and toes when tested with the 5.07 SWM bilateral.Vibratory sensation is decreased at the hallux IPJ bilateral. The hallux is downgoing bilateral. Derm: Nails 1-5 left and 2-5 right are painful, discolored-yellow, thick, crumbly, dystrophic and with subungal debris. Skin is of normal turgor, texture and hair growth is present bilateral. There are no hyperkeratosis, ulcerations, scars, verruca or other lesions noted. Healed blister of left hallux. Ortho: Muscle strength is 5/5 for all pedal groups tested. Ankle joint DF is full with the knee extended with no pain or crepitus noted. 1st MPJ ROM is full bilateral. Recurrent hallux valgus deformity b/l. Assessment: (E11.42) Diabetic polyneuropathy associated with type 2 diabetes mellitus (HCC) (primary encounter diagnosis) (B35.1) Onychomycosis (M79.675) Pain in toe of left foot (M79.674) Pain in toe of right foot (L84) Callus of foot Plan: Patient was seen and evaluated. Nails 1-5 left and 2-5 right were debrided in length and thickness. Discussed removal of toenails but needs to have A1c below 8. Discussed healed blister of left hallux. Likely caused by rubbing in shoes. Would recommend wider shoes. Patient was instructed on the continued importance of diabetic foot care along with proper diet andkeeping their blood sugar under control to prevent complications. Patient is to RTC in 3-4 months. Lucas Lutz DPM * Kelsea Constantino RN - 01/15/2024 3:57 PM EDT Patient presents with: Left Foot - Established Patient, Follow Up, Diabetic Foot Check Right Foot - Established Patient, Follow Up, Diabetic Foot Check Patient presents for 3 month follow up diabetic foot/nail care. Also due for diabetic foot exam. [facility] 10/11/23 documented in this encounterHolzer Hospital09-03-2024 NoteHNO ID: [id number] Author: KELSEA CONSTANTINO RN Service: ? Author Type: Registered Nurse Type: Progress Notes Filed: 01/16/2024 07:43 Note Text: Patient presents with: Left Foot - Established Patient, Follow Up, Diabetic Foot Check Right Foot - Established Patient, Follow Up, Diabetic Foot Check Patient presents for 3 month follow up diabetic foot/nail care. Also due for diabetic foot exam. [facility] 10/11/23[facility]09-01-2024 Miscellaneous Notes* Telephone Encounter - Shameka Matias - 06/26/2024 8:00 AM EST Received INR's from PCP patient wanted Dr. Nogueira to have a copy. Thanks Shameka Matias documented in this encounterHolzer Hospital05-30-2024 History of Present illness Narrative* Lucas Lutz - 10/11/2023 8:05 AM EDT Last saw pcp: not in chart Subjective: Patient presents to clinic c/o painful toenails. They state that the nails are especially painful with shoe gear and pressure. Patient is interested in removal of toenails but needs to get his sugars under control. He states his sugars have been running between 120-150. Patient denies any burning or tingling in his foot No other pedal complaints at this time. Patient states no change in medications or medical history since last visit. Objective: Patient presents to clinic ambulating in boots Vasc: DP and PT pulses are palpable bilateral. CFT is less than 5 seconds bilateral. Skin temperature is warm to cool proximal to distal bilateral. There is no edema or varicosities noted. Neuro: Protective sensation is decreased to the foot and toes when tested with the 5.07 SWM bilateral. Vibratory sensation is absent at the hallux IPJ bilateral. The hallux is downgoing bilateral. Derm: Nails 1-5 left and 2-5 right are painful, discolored-yellow, thick, crumbly, dystrophic and with subungal debris. Small collection of dry blood beneath the left 3rd nail. No signs of infection.Skin is of normal turgor, texture and hair growth is present bilateral. There are callus to left 2nd metatarsal. no ulcerations, scars, verruca or other lesions noted. Ortho: Muscle strength is 5/5 for all pedal groups tested. Ankle joint DF is decreased with the knee extended with no pain or crepitus noted. 1st MPJ ROM is decreased bilateral. Recurrent hallux valgus of left foot Assessment: (E11.42) Diabetic polyneuropathy associated with type 2 diabetes mellitus (HCC) (primary encounter diagnosis) (B35.1) Onychomycosis (M79.675) Pain in toe of left foot (M79.674) Pain in toe of right foot (L84) Callus of foot Plan: Patient was seen and evaluated. Nails 1-5 left and 2-5 right were debrided in length and thickness. Discussed possible chemical matrixectomy of toenails. Would consider if A1c below 8. Callus reduced to left foot with dremmel. Continue with inserts dispensed at last office visit. Patient was instructed on the continued importance of diabetic foot care along with proper diet andkeeping their blood sugar under control to prevent complications. Discussed his neuropathy and needto avoid barefoot walking and to wear good shoes and isnerts. Patient is to RTC in 3-4 months. Lucas Lutz DPM * Kelsea Constantino RN - 10/11/2023 7:58 AM EDT Patient presents with: Left Foot - Established Patient, Follow Up, Diabetic Foot Care Right Foot - Established Patient, Follow Up, Diabetic Foot Care Patient presents for follow up diabetic nail/foot care. SHE 08/24/23. States that he has problems with restless legs and cramping when trying to sleep. documented in this encounterHolzer Hospital05-06-2024 Nurse Note* Gary Riggins LPN - 09/17/2023 8:15 AM EDT No cardiac complaints today. Gary Riggins LPN [facility]05-06-[facility] Nurse Note* Gary Riggins LPN - 09/17/2023 8:15 AM EDT No cardiac complaints today. Gary Riggins LPN documented in this encounterHolzer Hospital05-06-2024 History of Present illness Narrative* Lamar Nogueira MD - 09/17/2023 8:00 AM EDT PRIMARY CARE PHYSICIAN: Margot Mai [address] [place] [address] Patient Care Team: Margot Mai MD as PCP - General (Family Medicine) [facility], Lazaro Hansen MD as Specialty Basin Cleaner (Cardiology) Lamar Nogueira MD as Specialty Basin Cleaner (Cardiology) CHIEF COMPLAINT: Follow up for arrhythmia HISTORY OF PRESENT ILLNESS: Mr. Karimi is a 58 year old male who presents today for a cardiovascular medicine follow-up visit. History copied from previous notes, edited as needed: Summary of previous notes: Mr. Karimi has a history of atrial fibrillation, referral from Dr. Marcus. Mr. Karimi states that he began experiencingshortness of breath at the end of last summer 2020, progressively worsening and then by August 2021 was gasping for air very short of breath. He was experiencing exertional shortness of breath, thenshortness of breath at rest, along with intermittent palpitations. He thought perhaps he had pulmonary condition, given his history of smoking for about 46 years (he quit 08/11/2021). In 08/2021 he was found to have severe dilated cardiomyopathy with heart failure, LVEF 15%, and also found to have a trial fibrillation. He states he was treated with [...] and more rested when he uses it. The antiarrhythmic drug options are severely limited due to the cardiomyopathy and heart failure. He underwent atrial fibrillation catheter ablation (cryoballoon) with Dr. Nogueira in February 2022. He had recurrence of the atrial fibrillation after catheter ablation, he underwent electrical cardioversion on 09/27/2022. Cardizem CD was reduced to 120 mg once daily due to lower extremity swelling. Interim History Dr. Nogueira 09/17/2023: Mr. Karimi presents for follow up evaluation for arrhythmia. He has [employer], checks his heart rhythm regularly, initially once a week but more recently about once a month. No symptoms suggestive of arrhythmia but he did not have much symptoms previously. He denies chest pain, shortness of breath, orthopnea, palpitations, PND, lightheadedness or syncope. I have confirmed and edited as necessary, the PFSH and ROS obtained by others. PAST MEDICAL HISTORY Diagnosis Date Anticoagulant long-term use indication: stroke prevention atrial fibrillation At risk for stroke [id number] = 2 (CHF, DM) Atypical atrial flutter [...] cryoablation/PVAI for atrial fibrillation 03/01/2022; [facility] Dr. Nogueira Type II or unspecified type diabetes mellitus without mention of complication, uncontrolled 06/12/2008 PAST SURGICAL HISTORY Procedure Laterality Date AFIB ABLATION/PULM VEIN ISOLATION 03/01/2022 balloon catheter cryoablation/PVAI for atrial fibrillation; [facility] Dr. Nogueira CARDIOVERSION, ELECTIVE, ELECTRICAL 10/27/2021 unsuccessful x2 [facility] CARDIOVERSION, ELECTIVE, ELECTRICAL 09/30/2021 [facility] - Unsuccessful CARDIOVERSION, ELECTIVE, ELECTRICAL 09/27/2022 COLONOSCOPY FLX DX W/COLLJ SPEC WHEN PFRMD 2004 Colonoscopy COLONOSCOPY FLX DX W/COLLJ SPEC WHEN PFRMD 10/14/2010 Colonoscopy/repeat in 10/2015 COLONOSCOPY FLX DX W/COLLJ SPEC WHEN PFRMD 10/29/2015 CORRECT BUNION,SIMPLE 05/14/[address] Velasquez right CORRECT BUNION,SIMPLE 05/31/2011 Bunion, Left ECHO 08/15/2021 EF 15%- [facility] ECHOCARDIOGRAM 01/20/2022 [facility]; see scanned documents LEFT HEART CATH,PERCUTANEOUS 11/25/2021 no significant CAD; LVEF 20%; [facility] REM LESIO TRUNK,ARM,LEG 1.1 -2.0CM 08/08/2008 Exc. ruptured emilie cyst right upper chest REPAIR INCISIONAL HERNIA,REDUCIBLE RPR UMBILICAL HRNA 5 YRS/> REDUCIBLE 05/14/2000 Hernia repair, umbilical >5yr SOCIAL HISTORY Social History Tobacco Use Smoking status: Former Packs/day: 1.00 Years: 47.00 Additional pack years: 0.00 Total pack years: 47.00 Types: Cigarettes Start date: 1974 Quit date: 08/11/2021 Years since quittin.1 Smokeless tobacco: Never Vaping Use Vaping Use: [...] 120 mg by mouth once daily. FREESTYLE ANNEL 2 READER USE DIRECTED TO CHECK AT LEAST 4 TIMES DAILY FREESTYLE ANNEL 2 SENSOR kit USE 1 SENSOR EVERY 14 DAYS. warfarin (COUMADIN) 4 mg tablet Take 8 mg by mouth once daily. insulin glargine (LANTUS SOLOSTAR, BASAGLAR KWIKPEN) 100 unit/mL (3 mL) Inject 50 Units subcutaneously. Once daily insulin lispro (HUMALOG KWIKPEN) 100 unit/mL INJECT 5 TO 15 UNITS SUBCUTANEOUSLY WITH MEALS warfarin (COUMADIN) 2 mg tablet 10 mg. [...] tablet by mouth twice daily with meals. pen needle, diabetic 31 gauge x 15/64 ndle USE 4 NEEDLES DAILY Review of Systems Constitutional: Negative for chills, fever and weight loss. Respiratory: Negative for cough, hemoptysis, sputum production, shortness of breath and wheezing. Cardiovascular: Negative for chest pain, palpitations, orthopnea and PND. Gastrointestinal: Negative for abdominal pain, blood in stool, melena, nausea and vomiting. Genitourinary: Negative for dysuria, flank pain and hematuria. Musculoskeletal: Negative for falls, joint pain and myalgias. Skin: Negative for rash. Neurological: Negative for dizziness, focal weakness, seizures and loss of consciousness. PHYSICAL EXAMINATION: BP 143/79 Pulse 76 Resp 16 Ht 6' 2 (1.88m) Wt 327 lb (148.3kg) SpO2 95% BMI 41.97 kg/(m^2). Physical Exam Vitals reviewed. Constitutional: General: He is not in acute distress. Appearance: Normal appearance. He is obese. HENT: Head: Normocephalic and atraumatic. Cardiovascular: Rate and Rhythm: Normal rate and regular rhythm. Heart sounds: Normal heart sounds, S1 normal and S2 normal. No murmur heard. No friction rub. Pulmonary: Effort: Pulmonary effort is normal. No respiratory distress. Breath sounds: Normal breath sounds. No wheezing, rhonchi or rales. Musculoskeletal: Cervical back: Neck supple. Right lower leg: No edema. Left lower leg: No edema. Skin: General: Skin is warm and dry. Neurological: General: No focal deficit present. Mental Status: He is alert and oriented to person, place, and time. Psychiatric: Mood and Affect: Mood normal. Behavior: Behavior normal. Thought Content: Thought content normal. CARDIOVASCULAR MEDICINE TESTING: Electrocardiogram: Sinus rhythm 71 bpm; normal conduction intervals (ND 196 ms, QRS 94 ms); QTc 428ms I have personally reviewed the Electrocardiogram. I spent a total of 30 minutes on the date of the service which included preparing to see the patient, ievf-gv-pper patient care, completing clinical documentation, obtaining and/or reviewing separately obtained history, performing a medically appropriate examination, counseling and educating the pat ient/family/caregiver, ordering medications, tests, or procedures, communicating with other HCPs (not separately reported), independently interpreting results (not separately reported), communicatingresults to the patient/family/caregiver, and care coordination (not separately reported). 1. Persistent atrial fibrillation (HCC) - ICD9: 427.31, ICD10: I48.19 (primary diagnosis) 2. Status post catheter ablation of atrial fibrillation - ICD9: V45.89, ICD10: Z98.890 3. Primary cardiomyopathy (HCC) - ICD9: 425.4, ICD10: I42.9 4. MARIELLA on CPAP - ICD9: 327.23, ICD10: G47.33 5. At risk for stroke - ICD9: V15.89, ICD10: Z91.89 6. Anticoagulant long-term use - ICD9: V58.61, ICD10: Z79.01 CHADS2-Vasc Score Breakdown 3 Total Score 1 History of CHF 1 History of 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 1 History of diabetes mellitus IMPRESSION: Mr. Karimi seems to be stable, doing well with regards to arrhythmia. He has not been aware of recurrent atrial fibrillation, he checks his heart rhythm periodically with a [employer] device. He is being treated with oral anticoagulation therapy for stroke prevention from atrial fibrillation. Itis recommended that patients with a history of atrial fibrillation be treated for stroke preventionaccording to their risk profile, such as [id number] score, rather than upon perceived atrial fibrillation burden. So with [id number] score of at least three points, Mr. Karimi should remain on oral anticoagulation therapy indefinitely in the absence of competing risks for such therapy. I had a detailed discussion with Mr. Karimi regarding my evaluation and recommendations. After our discussion, Mr. Karimi expressed his understanding and I answered all his questions to his apparent satisfaction. PLAN AND RECOMMENDATIONS: Continue with current plan of care from EP standpoint. Return in about 6 months (around 03/19/2024) for EP RECORDS MANAGEMENT COORDINATOR. Lamar Nogueira MD 09/17/2023 Medical Decision Making: Problems: Moderate: 2+ stable chronic illnesses Data: Unique test result(s) reviewed: 2 Unique test(s) ordered: 1 Risk: Moderate: Moderate risk from testing/treatment, Drug management and Decision on minor surgery w/ risk factors Medical Decision Making Level: 4 - Moderate documented in this encounterHolzer Hospital04-12-2024 Instructions* Patient Instructions* Lucas Lutz - 08/24/2023 8:22 AM EDT Your ulceration is now healed Use lotion to feet daily Can use over the counter insert with offloading pad Color area of callus with lipstick Step on insert Place padding around area of transfer Repeat as needed Diabetes Foot Care Instructions When you have [...] it. Apply a bandage and wear a differentpair of shoes. Take Care of Your Toenails Cut toenails after bathing, when they are soft. Cut toenails straight across and smooth with a nail file. Avoid cutting into the corners of toes. Do not cut cuticles. If you have neuropathy (or decreased sensation in your feet) a grading machine operator should always cut your toenails. Be Careful [...] make sure there are no foreign objects orrough areas. Avoid tight socks. Wear natural-fiber socks [...] Go to your health care provider or grading machine operator to treat these conditions. Powerstep Original Full length. Can purchase at [facility] [employer] and boots,shoes and more here in [place], [employer] in [place] or [place]. Also can find in [place] in [place] [facility]. Powersteps can also be purchased online, starting around $45.00 If you have a metatarsal or dancer pad for your feet apply the pad directly to the insole so you can interchange between your shoes. Find a shoe with a removable insole and take this out and replace with your powerstep insole. Always bring powersteps with you when shopping for shoes so that you can make sure that everything fits well together documented in this encounterHolzer Hospital04-12-2024 History of Present illness Narrative* Lucas Lutz - 08/24/2023 8:12 AM EDT FOLLOW UP PODIATRIC OFFICE VISIT Chief Complaint: This 57 year old who presents for follow up:left foot ulceration. Patient presents to clinic for follow-up left foot ulceration Had been using aquacel and band aide but has not needed to apply anything to the wound for a few weeks Continues to work. Unable to take time off work. PAIN EVALUATION No data found in the last 1 encounters. Hemoglobin A1C Date Value Ref Range Status 03/10/2017 10.2 (H) 4.3 - 5.6 % Final Comment: [place] [employer] guidelines indicate that patients with HgbA1c in the range 5.7-6.4% are at increased risk for development of diabetes, and intervention by lifestyle modification may be beneficial. HgbA1c greater or equal to 6.5% is considered diagnostic of diabetes. PCP: Margot Mai MD PAST MEDICAL HISTORY Diagnosis Date Anticoagulant long-term use indication: stroke prevention atrial fibrillation At risk for stroke [id number] = 2 (CHF, DM) Atypical atrial flutter [...] cryoablation/PVAI for atrial fibrillation 03/01/2022; [facility] Dr. Nogueira Type II or unspecified type diabetes mellitus without mention of complication, uncontrolled 06/12/2008 Current Outpatient Medications Medication Sig dilTIAZem CD (CARDIZEM CD, CARTIA XT) 120 mg 24 hr capsule Take 120 mg by mouth once daily. FREESTYLE ANNEL 2 READER USE DIRECTED TO CHECK AT LEAST 4 TIMES DAILY FREESTYLE ANNEL 2 SENSOR kit USE 1 SENSOR EVERY 14 DAYS. warfarin (COUMADIN) 4 mg tablet Take 8 mg by mouth once daily. insulin glargine (LANTUS SOLOSTAR, BASAGLAR KWIKPEN) 100 unit/mL (3 mL) Inject 50 Units subcutaneously. Once daily insulin lispro (HUMALOG KWIKPEN) 100 unit/mL INJECT 5 TO 15 UNITS SUBCUTANEOUSLY WITH MEALS pen needle, diabetic 31 gauge x 15 ndle USE 4 NEEDLES DAILY warfarin (COUMADIN) [...] catheter cryoablation/PVAI for atrial fibrillation; [facility] Dr. Nogueira CARDIOVERSION, ELECTIVE, ELECTRICAL 10/27/2021 unsuccessful x2 [facility] CARDIOVERSION, ELECTIVE, ELECTRICAL 09/30/2021 [facility] - Unsuccessful CARDIOVERSION, ELECTIVE, ELECTRICAL 09/27/2022 COLONOSCOPY FLX DX W/COLLJ SPEC WHEN PFRMD 2000, 2004 Colonoscopy COLONOSCOPY FLX DX W/COLLJ SPEC WHEN PFRMD 10/14/2010 Colonoscopy/repeat in 10/2015 COLONOSCOPY FLX DX W/COLLJ SPEC WHEN PFRMD 10/29/2015 CORRECT BUNION,SIMPLE 05/14/[address] Velasquez right CORRECT BUNION,SIMPLE 05/31/2011 Bunion, Left ECHO 08/15/2021 EF 15%- [facility] ECHOCARDIOGRAM 01/20/2022 [facility]; see scanned documents LEFT HEART CATH,PERCUTANEOUS 11/25/2021 no significant CAD; LVEF 20%; [facility] REM LESIO TRUNK,ARM,LEG 1.1 -2.0CM 08/08/2008 Exc. ruptured emilie cyst right upper chest REPAIR INCISIONAL HERNIA,REDUCIBLE RPR UMBILICAL HRNA 5 YRS/> REDUCIBLE 05/14/2000 Hernia repair, umbilical >5yr Physical Exam: OBJECTIVE: Constitutional: Pt is a well developed 57 year old male who is alert, oriented, cooperative and in no apparent distress. Eyes: Following during examination. No redness or drainage. Respiratory: RR normal and nonlabored. Even breathing. No evidence of distress. Psychology: Patient is engaged during conversation. Normal affect and mood. Does not appear depressed or anxious. NVSI unchanged from previous visit. Dermatological: Callus present to left 2nd metatarsal. Prior ulceration is now healed Musculoskeletal/Orthopaedic: Patient has no pain to palpation of left foot Recurrent bunion of left foot with hypermobile first ray ASSESSMENT: (L84) Callus of foot (primary encounter diagnosis) (M20.12) Hallux valgus of left foot (E11.49) Other diabetic neurological complication associated with type 2 diabetes mellitus (HCC) PLAN: Discussed prior ulceration. It is now healed. Now only callus of left 2nd metatarsal head. Etiologyof callus is likely attributed to hypermobile first ray with recurrent bunion/hammertoe. Options discussed include offloading of callus with diabetic shoes or inserts vs surgical reconstruction of bunion/hammertoe. Patient opts for padding and inserts and will order diabetic shoe. Diabetic shoes are necessary to help offload pre-ulcerative callus. Callus was reduced today with 15 blade. Discussed diabetes. He does have neuropathy. It is important that he avoid barefoot walking and wear good shoes. Lucas Lutz DPM * Christiane Roe LPN - 08/24/2023 8:05 AM EDT AMB ROOMING INTAKE FLOWSHEET DATA Patient presents with: Left Foot - Ulcer, Established Patient, Follow Up Christiane Roe LPN documented in this encounterHolzer Hospital02-29-2024 History of Present illness Narrative* Yina Strong RT(R) - 07/12/2023 8:50 AM EST Radiology Service Progress Note PATIENT NAME: Pedro Karimi DATE OF SERVICE: July 12, 2023 TIME: 9:37 AM PATIENT IDENTITY VERIFICATION COMPLETED USING TWO (2) IDENTIFIERS: Name and Date of confirmedby patient verbally. FALL SCREENING: Has the patient had 2 falls in the last year or 1 fall with injury or currently using an Ambulatory Assistive Device (Walker, Cane, Wheelchair, Crutches, etc.)? Yes, Patient High Riskfor Falls What interventions were put in place to prevent falls during this visit? Increased Observations by Caregivers PATIENT GENDER DATA: Male PATIENT RELEVANT IMPLANT DATA REVIEWED: Not Applicable PATIENT PRESENTS WITH AN IMPLANTABLE OR ATTACHED WATER POLLUTION CONTROL INSPECTOR: Yes [facility] RADIOLOGY DEPARTMENT: General X-ray: Exam(s) Completed: Lower Extremity X- Ray(s): Foot, Left PERIPHERAL IV DATA: Not applicable SIGNED BY: RT Richard(R) July 12, 2023 9:37 AM documented in this encounterHolzer Hospital02-29-2024 History of Present illness Narrative* Kym Keane RN - 07/12/2023 8:35 AM EST Aquacel applied to ulcer of L foot. Per Pedro Soria was provided with a post op shoe and peg assisted offloading insert, sizeL, and instructed/educated in its application, wear, and care. All questions were answered, and patient was able to demonstrate competence with the necessary skills to utilize the above equipment. Kym Keane RN * Lucas Lutz - 07/12/2023 8:06 AM EST Last time saw pcp: not in chart [...] prevention atrial fibrillation At risk for stroke [id number] = 2 (CHF, DM) Atypical atrial flutter [...] cryoablation/PVAI for atrial fibrillation 03/01/2022; [facility] Dr. Nogueira Type II or unspecified type diabetes mellitus without mention of complication, uncontrolled 06/12/2008 Current Outpatient Medications Medication Sig dilTIAZem CD (CARDIZEM CD, CARTIA XT) 120 mg 24 hr capsule Take 120 mg by mouth once daily. FREESTYLE ANNEL 2 READER USE DIRECTED TO CHECK AT LEAST 4 TIMES DAILY FREESTYLE ANNEL 2 SENSOR kit USE 1 SENSOR EVERY [...] catheter cryoablation/PVAI for atrial fibrillation; [facility] Dr. Nogueira CARDIOVERSION, ELECTIVE, ELECTRICAL 10/27/2021 unsuccessful x2 [facility] CARDIOVERSION, ELECTIVE, ELECTRICAL 09/30/2021 [facility] - Unsuccessful CARDIOVERSION, ELECTIVE, ELECTRICAL 09/27/2022 COLONOSCOPY FLX DX W/COLLJ SPEC WHEN PFRMD 2000, 2004 Colonoscopy COLONOSCOPY FLX DX W/COLLJ SPEC WHEN PFRMD 10/14/2010 Colonoscopy/repeat in 10/2015 COLONOSCOPY FLX DX W/COLLJ SPEC WHEN PFRMD 10/29/2015 CORRECT BUNION,SIMPLE 05/14/[address] Velasquez right CORRECT BUNION,SIMPLE 05/31/2011 Bunion, Left ECHO 08/15/2021 EF 15%- [facility] ECHOCARDIOGRAM 01/20/2022 [facility]; see scanned documents LEFT HEART CATH,PERCUTANEOUS 11/25/2021 no significant CAD; LVEF 20%; [facility] REM LESIO TRUNK,ARM,LEG 1.1 -2.0CM [...] Patient presents to clinic ambulating in [facility] Constitutional: Pt is a well developed 57 [...] toes when tested with the 5.07 SWM bilateral.Vibratory sensation is decreased at the hallux bilateral. [...] left foot, with fat layer exposed (HCC) Plan: 1. Patient was seen and evaluated. [...] neuorpathy now with history of ulceration. Lucas Lutz DPM * Kym Keane RN - 07/12/2023 8:01 AM EST Patient presents with: Left Foot - Established Patient, Diabetic Foot Care Right Foot - Established Patient, Diabetic Foot Care documented in this encounterHolzer Hospital02-29-2024 Instructions* Patient Instructions* Lucas Lutz - 07/12/2023 8:22 AM EST Cleanse wound [...] it. Apply a bandage and wear a differentpair of shoes. Take Care of Your Toenails Cut toenails after bathing, when they are soft. Cut toenails straight across and smooth with a nail file. Avoid cutting into the corners of toes. Do not cut cuticles. If you have neuropathy (or decreased sensation in your feet) a grading machine operator should always cut your toenails. Be Careful [...] make sure there are no foreign objects orrough areas. Avoid tight socks. Wear natural-fiber socks [...] Go to your health care provider or grading machine operator to treat these conditions. documented in this encounterHolzer Hospital11-27-2023 Instructions* Patient Instructions* Lucas Lutz - 04/09/2023 8:19 AM EST Diabetes Foot [...] it. Apply a bandage and wear a differentpair of shoes. Take Care of Your Toenails Cut toenails after bathing, when they are soft. Cut toenails straight across and smooth with a nail file. Avoid cutting into the corners of toes. Do not cut cuticles. If you have neuropathy (or decreased sensation in your feet) a grading machine operator should always cut your toenails. Be Careful [...] make sure there are no foreign objects orrough areas. Avoid tight socks. Wear natural-fiber socks [...] Go to your health care provider or grading machine operator to treat these conditions. documented in this encounterHolzer Hospital11-27-2023 History of Present illness Narrative* Lucas Lutz - 04/09/2023 8:12 AM EST Last time saw pcp: not in chart Subjective: This 57 year old male presents to clinic for diabetic foot check. Patient has the following complaints: painful toenail. Patient admits to being diabetic for multiple years now. Patient -B/T/N in feet at this time. Patient - pain in legs when walking. No other pedal [...] prevention atrial fibrillation At risk for stroke [id number] = 2 (CHF, DM) Atypical atrial flutter [...] cryoablation/PVAI for atrial fibrillation 03/01/2022; [facility] Dr. Nogueira Type II or unspecified type diabetes mellitus without mention of complication, uncontrolled 06/12/2008 Current Outpatient Medications Medication Sig dilTIAZem CD (CARDIZEM CD, CARTIA XT) 120 mg 24 hr capsule Take 120 mg by mouth once daily. FREESTYLE ANNEL 2 READER USE DIRECTED TO CHECK AT LEAST 4 TIMES DAILY FREESTYLE ANNEL 2 SENSOR kit USE 1 SENSOR EVERY [...] catheter cryoablation/PVAI for atrial fibrillation; [facility] Dr. Nogueira CARDIOVERSION, ELECTIVE, ELECTRICAL 10/27/2021 unsuccessful x2 [facility] CARDIOVERSION, ELECTIVE, ELECTRICAL 09/30/2021 [facility] - Unsuccessful CARDIOVERSION, ELECTIVE, ELECTRICAL 09/27/2022 COLONOSCOPY FLX DX W/COLLJ SPEC WHEN PFRMD 2000, 2004 Colonoscopy COLONOSCOPY FLX DX W/COLLJ SPEC WHEN PFRMD 10/14/2010 Colonoscopy/repeat in 10/2015 COLONOSCOPY FLX DX W/COLLJ SPEC WHEN PFRMD 10/29/2015 CORRECT BUNION,SIMPLE 05/14/[address] Velasquez right CORRECT BUNION,SIMPLE 05/31/2011 Bunion, Left ECHO 08/15/2021 EF 15%- [facility] ECHOCARDIOGRAM 01/20/2022 [facility]; see scanned documents LEFT HEART CATH,PERCUTANEOUS 11/25/2021 no significant CAD; LVEF 20%; [facility] REM LESIO TRUNK,ARM,LEG 1.1 -2.0CM 08/08/2008 [...] Objective: [facility] Constitutional: Pt is a well [...] noted. Hair growth absent. Non-Invasive Vascular Laboratory [facility] Lower Extremity Arterial Physiology Study Bilateral/Complete Date of service/time: 08/30/2022 8:06:05 AM Name: MR. PEDRO KARIMI Date of : 1965 Age: 57 [...] Normal at rest. Technologist: Ericka Simmons RVT, [facility] Ordering physician: LUCAS LUTZ Interpreting physician: Neil Figueredo MD Neuro: Protective sensation is absent to the foot and toes when tested with the 5.07 SWM bilateral.Vibratory sensation is absent at the hallu bilateral. [...] full with knee flexed. No pain or crepitusnoted. STJ, MTJ ROM are full and free of pain or crepitus. Muscle strength is 5/5 for dorsiflexors,plantarflexors, inverters, everters. Digital deformities include none. Assessment: [...] we can pursue removal of toenails Lucas Lutz DPM * Christiane Roe LPN - 04/09/2023 8:09 AM EST AMB ROOMING INTAKE FLOWSHEET DATA Patient presents with: Left Foot - Established Patient, Diabetic Foot Care Right Foot - Diabetic Foot Care Christiane Roe LPN documented in this encounterHolzer Hospital08-29-2023 Miscellaneous Notes* Telephone Encounter - Sharmaine Velez RN - 01/09/2023 8:37 AM EDT Left message on patient's voicemail requesting a return call regarding Keny Alexander's message. Office phone number provided. Sharmaine Velez RN Please let patient know echo came back within normal limits with an ejection fraction of 55% and noevidence of significant valvular abnormalities. Thank you, Keny Alexander APRN.[facility] January 04, 2023 8:43 AM documented in this encounterHolzer Hospital08-17-2023 Instructions* Patient Instructions* Lucas Lutz - 12/28/2022 9:18 AM EDT Diabetes Foot [...] it. Apply a bandage and wear a differentpair of shoes. Take Care of Your Toenails Cut toenails after bathing, when they are soft. Cut toenails straight across and smooth with a nail file. Avoid cutting into the corners of toes. Do not cut cuticles. If you have neuropathy (or decreased sensation in your feet) a grading machine operator should always cut your toenails. Be Careful [...] make sure there are no foreign objects orrough areas. Avoid tight socks. Wear natural-fiber socks [...] Go to your health care provider or grading machine operator to treat these conditions. documented in this encounterHolzer Hospital08-17-2023 History of Present illness Narrative* Lucas Lutz - 12/28/2022 9:06 AM EDT Subjective: This 57 year old male presents [...] prevention atrial fibrillation At risk for stroke [id number] = 2 (CHF, DM) Atypical atrial flutter [...] cryoablation/PVAI for atrial fibrillation 03/01/2022; [facility] Dr. Nogueira Type II or unspecified type diabetes mellitus without mention of complication, uncontrolled 06/12/2008 Current Outpatient Medications Medication Sig dilTIAZem CD (CARDIZEM CD, CARTIA XT) 120 mg 24 hr capsule Take 120 mg by mouth once daily. FREESTYLE ANNEL 2 READER USE DIRECTED TO CHECK AT LEAST 4 TIMES DAILY FREESTYLE ANNEL 2 SENSOR kit USE 1 SENSOR EVERY [...] catheter cryoablation/PVAI for atrial fibrillation; [facility] Dr. Nogueira CARDIOVERSION, ELECTIVE, ELECTRICAL 10/27/2021 unsuccessful x2 [facility] CARDIOVERSION, ELECTIVE, ELECTRICAL 09/30/2021 [facility] - Unsuccessful CARDIOVERSION, ELECTIVE, ELECTRICAL 09/27/2022 COLONOSCOPY FLX DX W/COLLJ SPEC WHEN PFRMD 2000, 2004 Colonoscopy COLONOSCOPY FLX DX W/COLLJ SPEC WHEN PFRMD 10/14/2010 Colonoscopy/repeat in 10/2015 COLONOSCOPY FLX DX W/COLLJ SPEC WHEN PFRMD 10/29/2015 CORRECT BUNION,SIMPLE 05/14/[address] Velasquez right CORRECT BUNION,SIMPLE 05/31/2011 Bunion, Left ECHO 08/15/2021 EF 15%- [facility] ECHOCARDIOGRAM 01/20/2022 [facility]; see scanned documents LEFT HEART CATH,PERCUTANEOUS 11/25/2021 no significant CAD; LVEF 20%; [facility] REM LESIO TRUNK,ARM,LEG 1.1 -2.0CM [...] Objective: Patient presents to clinic ambulating in [facility] Constitutional: Pt is a well developed [...] noted. Hair growth present. Non-Invasive Vascular Laboratory [facility] Lower Extremity Arterial Physiology Study Bilateral/Complete Date of service/time: 08/30/2022 8:06:05 AM Name: MR. PEDRO KARIMI Date of : 1965 Age: 57 [...] Normal at rest. Technologist: Ericka Simmons RVT, [facility] Ordering physician: LUCAS LUTZ Neuro: Protective sensation is intact to the foot and toes when tested with the 5.07 SWM bilateral.Vibratory sensation is decreased at the hallxu bilateral. [...] full with knee flexed. No pain or crepitusnoted. STJ, MTJ ROM are full and free of pain or crepitus. Muscle strength is 5/5 for dorsiflexors,plantarflexors, inverters, everters. Digital deformities include mild bunion. [...] an appointment. He still has order Lucas Lutz DPM * Stan Romeo RN - 12/28/2022 8:40 AM EDT Patient presents with: Left Foot - Established Patient: PVR follow up Right Foot - Established Patient: PVR follow up Pt states he hit left foot, small toe ~2 weeks ago and part of the nail fell off. He states it was bleeding everywhere and needed a friend to help him trim what was hanging. States no current issue with it. documented in this encounterHolzer Hospital08-08-2023 History of Present illness Narrative* Keny Alexander APRN.[employer]ER - 12/19/2022 9:30 AM EDT [facility] General Cardiology Electrophysiology PRIMARY CARE PHYSICIAN: Margot Mai [address] [place] [address] CHIEF COMPLAINT: Persistent atrial fibrillation. HISTORY OF PRESENT ILLNESS (copied from my previous office note on 06/06/2022): Mr. Karimi is a pleasant 56-year-old male who presents today for 3-month follow- up status post cryoPVI with Dr. Nogueira on 03/01/2022. Twelve-lead performed in office today showed likely atrial flutter with ventricular rate of 127. Possibly atrial tach. Patient was placed on diltiazem CR 120 mgdaily by his general continuous pickling line pickler helper Dr. Marcus. Overall patient reports he feels [...] in the evening. I requested when he getshome from his appointment to take 2 of his 120 mg tablets. Patient aware we will bring him back shortly for DCCV. 3-month post PVI testing pending. Patient is a ZML3QO2-DJAq of 3 secondary to 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, diabetes, and CHF. He takes Coumadin 8 mg on Tuesdays, Wednesdays, , and Fridays with 7 mg on all other days. He is also on Coreg 25 mg twice daily. Patient agreeable to follow-up in 3months. Interval History: Mr. Karimi is a pleasant 57-year-old gentleman who presents today for follow-up regarding history of persistent atrial fibrillation. Patient underwent cryo PVI with Dr. Nogueira in February 2022. Subsequently he was cardioverted on 09/27/2022. Twelve-lead performed in office todayshowed normal sinus rhythm at a rate of 66. He follows with cardiology in [place]. He reports not that long ago his [...] surface echo due to lower extremity swelling tomake sure ejection fraction has not dropped below 40 necessitating discontinuation of diltiazem. Patient is agreeable. He denies having any symptoms of atrial fibrillation. He does utilize a [employer] mobile skip which he checks once every couple weeks. We discussed potential referral to obesity medicine. Patient declined at this time stating he has been lazy regarding his diet and is going to take steps to improve. 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 Patient agreeable tofollow-up with me in 3 months to discuss results of echo and plan moving forward. PAST MEDICAL HISTORY Diagnosis Date Anticoagulant long-term use indication: stroke prevention atrial fibrillation At risk for stroke [id number] = 2 (CHF, DM) Atypical atrial flutter [...] cryoablation/PVAI for atrial fibrillation 03/01/2022; [facility] Dr. Nogueira Type II or unspecified type diabetes mellitus without mention of complication, uncontrolled 06/12/2008 PAST SURGICAL HISTORY Procedure Laterality Date AFIB ABLATION/PULM VEIN ISOLATION 03/01/2022 balloon catheter cryoablation/PVAI for atrial fibrillation; [facility] Dr. Nogueira CARDIOVERSION, ELECTIVE, ELECTRICAL 10/27/2021 unsuccessful x2 [facility] CARDIOVERSION, ELECTIVE, ELECTRICAL 09/30/2021 [facility] - Unsuccessful CARDIOVERSION, ELECTIVE, ELECTRICAL 09/27/2022 COLONOSCOPY FLX DX W/COLLJ SPEC WHEN PFRMD 2004 Colonoscopy COLONOSCOPY FLX DX W/COLLJ SPEC WHEN PFRMD 10/14/2010 Colonoscopy/repeat in 10/2015 COLONOSCOPY FLX DX W/COLLJ SPEC WHEN PFRMD 10/29/2015 CORRECT BUNION,SIMPLE 05/14/[address] Velasquez right CORRECT BUNION,SIMPLE 05/31/2011 Bunion, Left ECHO 08/15/2021 EF 15%- [facility] [facility] ECHOCARDIOGRAM 01/20/2022 [facility]; see scanned documents LEFT HEART CATH,PERCUTANEOUS 11/25/2021 no significant CAD; LVEF 20%; [facility] REM LESIO TRUNK,ARM,LEG 1.1 -2.0CM 08/08/2008 [...] 120 mg by mouth once daily.^Disp: ^Rfl: FREESTYLE ANNEL 2 READER^USE DIRECTED TO CHECK AT LEAST 4 TIMES DAILY^Disp: ^Rfl: FREESTYLE ANNEL 2 SENSOR kit^USE 1 SENSOR EVERY 14 [...] for abdominal distention, abdominal pain, constipation, diarrhea, nauseaand vomiting. Genitourinary: Negative for difficulty urinating, dysuria [...] normal. Behavior: Behavior normal. CARDIOVASCULAR MEDICINE TESTING: [facility] report 09/27/2022 Patient was successfully converted out [...] Patient previously underwent cryo PVI with Dr. Nogueira in February 2022. Subsequently underwent successful cardioversion in September 2022. Current treatment regimen includes Coumadin 8 mg daily, Coreg 25 mg twice daily, and diltiazem CR 360 mg daily. GNI7QV2-ECYc of at least 3 secondary to CHF, [...] up with me in 3 months.. Keny Alexander APRN.[employer]OR [employer]ANGER documented in this encounterHolzer Hospital08-08-2023 Nurse Note* Clara Weathers MA - 12/19/2022 9:24 AM EDT No cardiac complaints today. Clara Weathers MA documented in this encounterHolzer Hospital05-17-2023 Miscellaneous Notes* Telephone Encounter - Lamar Nogueira MD - 09/27/2022 11:57 AM EDT Mr. Karimi needs follow up appointment with EP LYNETTE in about 3 months after undergoing cardioversiontoday. Lamar Nogueira MD September 27, 2022 11:58 AM documented in this encounterHolzer Hospital05-12-2023 Miscellaneous Notes* Telephone Encounter - Sharmaine Velez RN - 09/22/2022 4:33 PM EDT 09/05/22 INR- 2.7 09/12/22 INR- 2.4 09/19/22 INR- 3.0 09/26/22 INR next INR scheduled Scheduled to had cardioversion with Dr. Nogueira on 09/27/22 - pt remains therapeutic. Sharmaine Velez RN * Telephone Encounter - Sharmaine Velez RN - 09/22/2022 4:27 PM EDT Pt's name has been added to chun procedure board. Sharmaine Velez RN * Telephone Encounter - Nella Coffey LPN - 09/22/2022 2:45 PM EDT Patient returned call to [facility] to confirm date for cardioversion with Dr. Nogueira on 09/27. Reviewed procedure instructions with patient; patient verbalizes understanding to all instructions. Nella Coffey LPN * Telephone Encounter - Deisy Smith - 09/22/2022 12:08 PM EDT Patient is scheduled for a Cardioversion on 09/[address] Nogueira. The hospital will call the day before between 2-5pm with your arrival time. Patient should not eat or drink after midnight the day before the procedure. Patient will need a ice delivery driver when released from the hospital. Patient should continue to take medications as prescribed the morning of the procedure with just a sip of water unless otherwise instructed. Left message for Pedro Karimi to call back and confirm date & instructions Deisy Smith documented in this encounterHolzer Hospital05-09-2023 Miscellaneous Notes* Telephone Encounter - Marcy Leary RN - 09/19/2022 2:13 PM EDT Pt was previously amrit for cardioversion but was not therapeutic on coumadin. Pt is now therapeutic.Can we get this amrit for the pt. 08/22 2.2 08/29 2.0 09/05 2.7 5 2.4 09/19 3.0 documented in this encounterHolzer Hospital04-19-2023 Miscellaneous Notes* Telephone Encounter - Marcy Leary RN - 08/30/2022 4:27 PM EDT I called and s/w Alia SAVAGE at the [facility]. I informed her that he needs to be at 2.5 INRso he does not run the risk of being subtherapeutic on the day of procedure. She verbalized understanding and will relay the message to the nurse that manages his coumadin/INR. They will continue theweekly faxes. Marcy Leary RN documented in this encounterHolzer Hospital04-13-2023 Miscellaneous Notes* Telephone Encounter - Eduarda Santana LPN - 08/24/2022 10:36 AM EDT Faxed demographics to [employer]. Eduarda Santana LPN * Telephone Encounter - Eduarda Santana LPN - 08/24/2022 10:26 AM EDT Maritza with [employer] is requesting demographics to be faxed to [phone]. Eduarda Santana LPN documented in this encounterHolzer Hospital04-04-2023 Miscellaneous Notes* Telephone Encounter - Marcy Leary RN - 08/15/2022 2:29 PM EDT Patient's request for medication is as follows: Requested Prescriptions Pending Prescriptions Disp Refills dilTIAZem CR (TIAZAC, TAZTIA XT) 360 mg 24 hr capsule 90 capsule 3 Sig: Take 1 capsule by mouth once daily. This medication was d/c 07/06/2022 by DL. Your note 07/03/2022 states: The diltiazem dose had been increased at the outpatient appointment with Keny Alexander APN, from 120mg daily to 120 mg twice daily. I instructed Mr. Karimi to increase the dose to 360 mg daily, either all at once or increase either the AM or PM dose to 240 mg Pt is ok with taking 360 mg daily Prescription(s) as above. Please process accordingly. Marcy Leary RN documented in this encounterHolzer Hospital03-14-2023 Miscellaneous Notes* Telephone Encounter - Sharmaine Velez RN - 07/25/2022 9:03 AM EDT INR faxed from [facility] INR clinic. 07/24/22 INR- 2.1. Sharmaine Velez RN * Telephone Encounter - Sharmaine Velez RN - 07/17/2022 3:47 PM EST Patient called having INR checked weekly at [place], INR on 07/10/22 was -2.3 INR on 07/17/22 was - 2.1, patient dosing was adjusted to increase the INR, will call next week with an updated. Sharmaine Velez RN * Telephone Encounter - Sharmaine Velez RN - 07/17/2022 3:14 PM EST Received INR from [facility] regarding today INR of 2.1. Left message on patient's voicemail requesting a return call regarding next INR level. Sharmaine Velez RN documented in this encounterHolzer Hospital01-30-2023 Miscellaneous Notes* Telephone Encounter - Sharmaine Velez RN - 06/12/2022 4:27 PM EST Spoke with patient who indicated he will have INR levels done weekly for the next three weeks. Willhave INR levels faxed to our office for documentation prior to cardioversion with Dr. Nogueira on07/03/22. Sharmaine Velez RN * Telephone Encounter - Sharmaine Velez RN - 06/12/2022 4:21 PM EST Pt's name has been added to chun procedure board. Sharmaine Velez RN * Telephone Encounter - Deisy Smith - 06/12/2022 2:42 PM EST Patient is scheduled for a Cardioversion on 07/[address] Nogueira. The hospital will call the day before between 2-5pm with your arrival time. Patient should not eat or drink after midnight the day before the procedure. Patient will need a ice delivery driver when released from the hospital. Patient should continue to take medications as prescribed the morning of the procedure with just a sip of water unless otherwise instructed. Spoke with patient and he verbalized understanding of all instructions Deisy Smith documented in this encounterHolzer Hospital01-25-2023 Miscellaneous Notes* Telephone Encounter - Claire Holder RN - 06/07/2022 2:11 PM EST Prior auth for Diltiazem CR 120mg BID completed on Cover My Meds website. Claire Holder RN documented in this encounterHolzer Hospital01-24-2023 Miscellaneous Notes* Addendum Note - Lamar Nogueira MD - 06/06/2022 7:59 PM ESTAddended by: LAMAR NOGUEIRA on: 06/06/2022 07:59 PM Modules accepted: Orders * Telephone Encounter - Lamar Nogueira MD - 06/06/2022 7:54 PM EST Reviewed. As discussed with Keny Alexander CNP, I think electrical cardioversion is best option at this point. Procedure request submitted. Lamar Nogueira MD June 06, 2022 7:55 PM * Telephone Encounter - Keny Alexander APRN.CNP - 06/06/2022 2:05 PM EST Eddi, Saw patient in office today for 3 months post PVI appointment. Twelve-lead showed likely atrial flutter with a ventricular rate of 127. We doubled his Cardizem CD from 120 mg daily to twice daily. Patient will need cardioverted sooner than later. Thanks, Keny Alexander APRN.WILLIAM June 06, 2022 2:06 PM documented in this encounterHolzer Hospital01-24-2023 History of Present illness Narrative* Keny Alexander APRN.WILLIAM - 06/06/2022 1:30 PM EST [facility] General Cardiology Electrophysiology PRIMARY CARE PHYSICIAN: Margot Mai [address] [place] [address] CHIEF COMPLAINT: 3 months post PVI. HISTORY OF PRESENT ILLNESS (copied from my previous office note on 02/27/2022): Mr. Karimi is a pleasant 56-year-old gentleman who presents today for history and physical update prior to PVI with Dr. Nogueira on 03/01/2022. Lengthy discussion was had regarding [...] denies any angina, shortness of breath, worsening activitytolerance, or constitutional symptoms. Twelve-lead EKG showed atrial fibrillation with RVR with a rate of 123. Patient denies ever having any symptoms of atrial fibrillation. Vital signs stable. Riskand benefit discussion was had. Benefits include maintaining normal sinus rhythm. Very low risk of bleeding, stroke, or . Medications, allergies, and medical history reviewed with patient. Indica annie I have answered all his questions he has nothing further at this time. Verbalizes a desire to move forward with procedure. Interval History: Mr. Karimi is a pleasant 56-year-old male who presents today for 3-month follow-up status post cryo PVI with Dr. Nogueira on 03/01/2022. Twelve-lead performed in office today showed likely atrial flutter with ventricular rate of 127. Possibly atrial tach. Patient was placed on diltiazem CR 120 mg daily by his general continuous pickling line pickler helper Dr. Marcus. Overall patient reports he feels [...] post PVI testing pending. Patient is a [id number] of 3 secondary to 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, diabetes, and CHF. He takes Coumadin 8 mg on Tuesdays, Wednesdays, , and Fridays with 7 mg on all other days. He is also on Coreg 25 mg twice daily. Patient agreeableto follow-up in 3 months. PAST MEDICAL HISTORY Diagnosis Date Anticoagulant long-term use indication: stroke prevention atrial fibrillation At risk for stroke [id number] = 2 (CHF, DM) Benign neoplasm of [...] cryoablation/PVAI for atrial fibrillation 03/01/2022; [facility] Dr. Nogueira Type II or unspecified type diabetes mellitus without mention of complication, uncontrolled 06/12/2008 PAST SURGICAL HISTORY Procedure Laterality Date AFIB ABLATION/PULM VEIN ISOLATION 03/01/2022 balloon catheter cryoablation/PVAI for atrial fibrillation; [facility] Dr. Nogueira CARDIOVERSION, ELECTIVE, ELECTRICAL 10/27/2021 unsuccessful x2 [facility] CARDIOVERSION, ELECTIVE, ELECTRICAL 09/30/2021 [facility] - Unsuccessful COLONOSCOPY FLX DX W/COLLJ SPEC WHEN PFRMD 2000, 2004 Colonoscopy COLONOSCOPY FLX DX W/COLLJ SPEC WHEN PFRMD 10/14/2010 Colonoscopy/repeat in 10/2015 COLONOSCOPY FLX DX W/COLLJ SPEC WHEN PFRMD 10/29/2015 CORRECT BUNION,SIMPLE 05/14/[address] Velasquez right CORRECT BUNION,SIMPLE 05/31/2011 Bunion, Left ECHO 08/15/2021 EF 15%- [facility] ECHOCARDIOGRAM 01/20/2022 [facility]; see scanned documents LEFT HEART CATH,PERCUTANEOUS 11/25/2021 no significant CAD; LVEF 20%; [facility] REM LESIO TRUNK,ARM,LEG 1.1 -2.0CM [...] INSULIN) 100 unit/mL (3 mL)^Inject 50 Units subcutaneously.Once daily^Disp: ^Rfl: dilTIAZem CR (TIAZAC, TAZTIA XT) [...] Syringe-Needle U-100 0.3 mL 31 gauge x 09/26^USE WITH INSULIN ONCE DAILY^Disp: ^Rfl: potassium chloride [...] for abdominal distention, abdominal pain, constipation, diarrhea, nauseaand vomiting. Genitourinary: Negative for difficulty urinating, dysuria [...] rhythm with a ventricular rate of 68. ND 196. QRS 92. QT/QTc 432/459. Echo 08/15/2021 Moderately dilated left ventricle. Estimated EF 15%. 3-month post PVI testing pending. I have reviewed the post PVI EKG as well as pre PVI echo. PLAN AND RECOMMENDATIONS: ASSESSMENT/PLAN: 1. Status post catheter ablation of atrial fibrillation - ICD9: V45.89, ICD10: Z98.890 (primary diagnosis) Patient underwent cryo PVI with Dr. Nogueira on 03/01/2022. 3-month post testing pending. Patientis underwent multiple cardioversions in the past with most recent in October 2021. That particular episode was unsuccessful x2 attempts at [facility]. Current treatment regimen includes warfarin 8 mg daily and Coreg 25 mg twice daily. [id number] of 3 secondary to CHF, 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, and type 2 diabetes. 2. Chronic HFrEF (heart failure with reduced ejection fraction) ([facility]) - ICD9: 428.22, ICD10: I50.22 Pre PVI [...] (around 09/04/2022) for Follow up with Dr. Nogueira. . Keny Alexander APRN.DOOR HANGER documented in this encounterHolzer Hospital01-24-2023 Nurse Note* Nella Coffey LPN - 06/06/2022 1:20 PM EST Patient denies any cardiac complaints or symptoms. Nella Coffey LPN documented in this encounterHolzer Hospital01-24-2023 Nurse Note* Agueda Garg Registered Radiation Therapist - 06/06/2022 11:00 AM EST Holter monitor applied. Pt verbalized understanding of monitor use / diary. documented in this [facility]10-26-2022 Miscellaneous Notes* Telephone Encounter - Marcy Leary RN - 03/08/2022 1:33 PM EDT Post PVAI orders pended for signature - office will call to schedule documented in this [facility]10-17-2022 History of Present illness Narrative* Keny Alexander APRN.DOOR HANGER - 02/27/2022 11:00 AM EDT [facility] General Cardiology Electrophysiology PRIMARY CARE PHYSICIAN: Margot Mai MD [address] [facility] [place] [address] CHIEF COMPLAINT: History and physical update prior to PVI with Dr. Nogueira on 03/01/2022. HISTORY OF PRESENT ILLNESS (copied from Dr. Nogueira's office note on 01/02/2022): Mr. Karimi is a 56 year old male who presents today for evaluation of atrial fibrillation, referralfrom Dr. Marcus. Mr. Karimi states that he began experiencing shortness of breath at the end of lastsummer 121, progressively worsening and then by August this year was gasping for air very short ofbreath. He was experiencing exertional shortness of breath, then shortness of breath at rest, alongwith intermittent palpitations. He thought perhaps he had pulmonary condition, given his history ofsmoking for about 46 years (he quit 08/11/2021). [...] in 11/2021 revealed no significant CAD. He statescompliance with prescribed CPAP therapy for sleep apnea, feels better and more rested when he uses it. He is referred for evaluation for the treatment options. 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 I have confirmed and edited as necessary, the PFSH and ROS obtained by others. Interval History: Mr. Karimi is a pleasant 56-year-old gentleman who presents today for history andphysical update prior to PVI with Dr. Nogueira on 03/01/2022. Lengthy discussion was had regarding what to expect pre-/intra-/post ablation. Logistical overview of procedure was discussed. Patient aware he will receive general anesthesia and stay overnight in the [facility]. Encourage patient to eat anddrink well day before procedure. Nothing after midnight. Did request patient take his morning medications prior to coming in with small sips of water. Patient denies any angina, shortness of breath, worsening activity tolerance, or constitutional symptoms. Twelve-lead EKG showed atrial fibrillationwith RVR with a rate of 123. Patient denies ever having any symptoms of atrial fibrillation. Vital signs stable. Risk and benefit discussion was had. Benefits include maintaining normal sinus rhythm.Very low risk of bleeding, stroke, or . Medications, allergies, and medical history reviewed with patient. Indicates I have answered all his questions he has nothing further at this time. Verbalizes a desire to move forward with procedure. PAST MEDICAL HISTORY Diagnosis Date Anticoagulant long-term use indication: stroke prevention atrial fibrillation At risk for stroke [id number] = 2 (CHF, DM) Benign neoplasm of [...] 06/12/20082000. On CPAP. Persistent atrial fibrillation (HCC) Primary cardiomyopathy (HCC) Type II or unspecified type diabetes mellitus without mention of complication, uncontrolled 06/12/2008 PAST SURGICAL HISTORY Procedure Laterality Date CARDIOVERSION, ELECTIVE, ELECTRICAL 10/27/2021 unsuccessful x2 [facility] CARDIOVERSION, ELECTIVE, ELECTRICAL 09/30/2021 [facility] - Unsuccessful COLONOSCOPY FLX DX W/COLLJ SPEC WHEN PFRMD 2000, 2004 Colonoscopy COLONOSCOPY FLX DX W/COLLJ SPEC WHEN PFRMD 10/14/2010 Colonoscopy/repeat in 10/2015 COLONOSCOPY FLX DX W/COLLJ SPEC WHEN PFRMD 10/29/2015 CORRECT BUNION,SIMPLE 05/14/[address] Velasquez right CORRECT BUNION,SIMPLE 05/31/2011 Bunion, Left ECHO 08/15/2021 EF 15%- [facility] ECHOCARDIOGRAM 01/20/2022 [facility]; see scanned documents LEFT HEART CATH,PERCUTANEOUS 11/25/2021 no significant CAD; LVEF 20%; [facility] REM LESIO TRUNK,ARM,LEG 1.1 -2.0CM [...] for abdominal distention, abdominal pain, constipation, diarrhea, nauseaand vomiting. Genitourinary: Negative for difficulty urinating, dysuria [...] well as Coumadin 8 mg on Tuesdays andWednesdays with 7 mg on all other days. [...] show up pre procedure on 03/01.. Keny Alexander APRN.DOOR HANGER documented in this encounterHolzer Hospital10-17-2022 Nurse Note* Korina Kim MA - 02/27/2022 10:33 AM EDT Patient denies any new cardiac concerns or symptoms. documented in this encounterHolzer Hospital10-10-2022 Miscellaneous Notes* Telephone Encounter - Deisy Smith - 02/20/2022 8:38 AM EDT Patient is scheduled for a PVAI Ablation with Dr. Nogueira on 03/01. This procedure will require an overnight stay. Please return our call with 72 hours to confirm your procedure and receive your instructions. If we do not hear from you your procedure will be postponed until next available date. Left message Deisy Smith Patient is scheduled for a PVAI Ablation on 03/01/[address] Nogueira. The hospital will call the day before between 2-5pm with your arrival time. Patient should not eat or drink after midnight the day before the procedure. Patient will need a ice delivery driver when released from the hospital. You will stay overnight for observation. Patient should continue to take medications as prescribed the morning of the procedure with just a sip of water unless otherwise instructed. H&P update on 02/27 at 11am with Keny Alexander documented in this encounterHolzer Hospital09-15-2022 Miscellaneous Notes* Telephone Encounter - Marcy Leary RN - 01/26/2022 10:24 AM EDT Pt returned call informed him of Dr Louie's recommendations for his INR levels. Pt verbalized understanding. Pt only concern was that he had not been amrit yet. I advised him his tentative date is for 03/08. No further issues or concerns. Marcy Leary RN * Telephone Encounter - Sharmaine Velez RN - 01/26/2022 10:00 AM EDT Images from the original note were not included. Left message on patient's voicemal requesting a return call regarding Dr. Nogueira's message and recommendations. Office phone number provided. [facility] JANETTE Tidwell MD [...] value below 2.0. If he has INR <2.0 on the day of the procedure we would need to cancel. So we recommend boosting the warfarin for INR values < 2.5 so we avoid possibility of being < 2.0. Lamar Nogueira MD January 25, 2022 2:48 PM * Telephone Encounter - Sharmaine Velez RN - 01/25/2022 11:33 AM EDT INR level from [facility], tentative procedure date with Dr. Nogueira on 03/08/22. 01/10/22-2.4 01/17/22- 2.2 Sharmaine Velez, RN documented in this encounterHolzer Hospital08-22-2022 Nurse Note* Alia Ramirez MA - 01/02/2022 9:01 AM EDT Patient denies any cardiac issues or symptoms. documented in this encounterHolzer Hospital08-22-2022 History of Present illness Narrative* Lamar Nogueira MD - 01/02/2022 9:00 AM EDT PRIMARY CARE PHYSICIAN: Margot Mai MD [address] [place] [address] REFERRING PHYSICIAN: Lazaro Marcus MD ([facility]) [address] [facility] [address] [facility] [address] Patient Care Team: Margot Mai as PCP - General (Family Practice) Lazaro Marcus as Specialty Basin Cleaner (Cardiology) CHIEF COMPLAINT: Evaluation of arrhythmia HISTORY OF PRESENT ILLNESS: Mr. Karimi is a 56 year old male who presents today for evaluation of atrial fibrillation, referralfrom Dr. Marcus. Mr. Karimi states that he began experiencing shortness of breath at the end of , progressively worsening and then by August this year was gasping for air very short ofbreath. He was experiencing exertional shortness of breath, then shortness of breath at rest, alongwith intermittent palpitations. He thought perhaps he had pulmonary condition, given his history ofsmoking for about 46 years (he quit 08/11/2021). [...] in 11/2021 revealed no significant CAD. He statescompliance with prescribed CPAP therapy for sleep apnea, feels better and more rested when he uses it. He is referred for evaluation for the treatment options. 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 I have confirmed and edited as necessary, the PFSH and ROS obtained by others. PAST MEDICAL HISTORY Diagnosis Date Anticoagulant long-term use indication: stroke prevention atrial fibrillation At risk for stroke [id number] = 2 (CHF, DM) Benign neoplasm of [...] 06/12/20082000. On CPAP. Persistent atrial fibrillation (HCC) Primary cardiomyopathy (HCC) Type II or unspecified type diabetes mellitus without mention of complication, uncontrolled 06/12/2008 PAST SURGICAL HISTORY Procedure Laterality Date CARDIOVERSION, ELECTIVE, ELECTRICAL 10/27/2021 unsuccessful x2 [facility] CARDIOVERSION, ELECTIVE, ELECTRICAL 09/30/2021 [facility] - Unsuccessful COLONOSCOPY FLX DX W/COLLJ SPEC WHEN PFRMD 2004 Colonoscopy COLONOSCOPY FLX DX W/COLLJ SPEC WHEN PFRMD 10/14/2010 Colonoscopy/repeat in 10/2015 COLONOSCOPY FLX DX W/COLLJ SPEC WHEN PFRMD 10/29/2015 CORRECT BUNION,SIMPLE 05/14/[address] Velasquez right CORRECT BUNION,SIMPLE 05/31/2011 Bunion, Left ECHO 2021 EF 15%- [facility] LEFT HEART CATH,PERCUTANEOUS 11/25/2021 Normal Coronary Arteries, [facility]. Hospital REM LESIO TRUNK,ARM,LEG 1.1 -2.0CM 08/08/2008 [...] with rapid ventricular response, average 124 bpm; incompleteright bundle branch block QRS duration 92 ms; [...] fraction) (HCC) - ICD9: 428.22, ICD10: I50.22 6. MARIELLA on CPAP - ICD9: 327.23, V46.8, ICD10: G47.33, Z99.89 7. Obesity, Class III, BMI 40-49.9 (morbid obesity) (HCC) - ICD9: 278.01, ICD10: E66.01 IMPRESSION: Mr. Karimi has symptomatic persistent atrial fibrillation refractory to medical therapy including antiarrhythmic drug (amiodarone). The antiarrhythmic drug options are severely limited due to the cardiomyopathy and heart failure. At his young age, leaving him in atrial fibrillation is not desirableand he is experiencing bothersome symptoms attributable to [...] ventricular systolic function and chamber dimensions. Lamar Nogueira MD 01/02/2022 Medical Decision Making: Problems: Moderate: 1+ chronic illnesses with change Data: Unique source(s) for external note(s) reviewed: 3+ Unique test result(s) reviewed: 3+ Unique test(s) ordered: 1 Risk: Moderate: Moderate risk from testing/treatment, Drug management and Decision on minor surgery w/ risk factors Medical Decision Making Level: 4 - Moderate documented in this encounterHolzer Hospital07-18-2022 Miscellaneous Notes* Telephone Encounter - Deisy Smith - 11/28/2021 9:53 AM EDT Patient waiting on Financial Clearance. If approved - ok to schedule with Dr Nogueira as new patient - Referral from Dr Marcus for persistant afib & cardiomyopathy documented in this encounterHolzer Hospital01-04-2013 History of Past illness Narrative* Problem Noted Date Resolved Date Tobacco use disorder 05/17/2012 12/31/2021 Other acquired deformity of toe 05/29/2011 09/29/2011 Hallux valgus (acquired) 05/29/2011 012 Abnormality of gait 05/29/2011 09/29/2011 Personal history of colonic polyps 10/03/2010 09/29/2011 Ingrowing nail 04/12/2009 09/19/2010 Sebaceous cyst 07/20/2008 09/19/2010 documented as of this encounter (statuses as of 01/03/2022) [facility] of [facility] illness Narrative* Problem Noted Date Resolved Date Tobacco use disorder 05/17/2012 12/31/2021 Other acquired deformity of toe 05/29/2011 09/29/2011 Hallux valgus (acquired) 05/29/2011 012 Abnormality of gait 05/29/2011 09/29/2011 Personal history of colonic polyps 10/03/2010 09/29/2011 Ingrowing nail 04/12/2009 09/19/2010 Sebaceous cyst 07/20/2008 09/19/2010 documented as of this encounter (statuses as of 01/26/2022) [facility] illness Narrative* Problem Noted Date Resolved Date Tobacco use disorder 05/17/2012 12/31/2021 Other acquired deformity of toe 05/29/2011 09/29/2011 Hallux valgus (acquired) 05/29/2011 012 Abnormality of gait 05/29/2011 09/29/2011 Personal history of colonic polyps 10/03/2010 09/29/2011 Ingrowing nail 04/12/2009 09/19/2010 Sebaceous cyst 07/20/2008 09/19/2010 documented as of this encounter (statuses as of 02/20/2022) [facility] Narrative* Problem Noted Date Resolved Date Tobacco use disorder 05/17/2012 12/31/2021 Other acquired deformity of toe 05/29/2011 09/29/2011 Hallux valgus (acquired) 05/29/2011 012 Abnormality of gait 05/29/2011 09/29/2011 Personal history of colonic polyps 10/03/2010 09/29/2011 Ingrowing nail 04/12/2009 09/19/2010 Sebaceous cyst 07/20/2008 09/19/2010 documented as of this encounter (statuses as of 02/27/2022) [facility] Narrative* Problem Noted Date Resolved Date Tobacco use disorder 05/17/2012 12/31/2021 Other acquired deformity of toe 05/29/2011 09/29/2011 Hallux valgus (acquired) 05/29/2011 012 Abnormality of gait 05/29/2011 09/29/2011 Personal history of colonic polyps 10/03/2010 09/29/2011 Ingrowing nail 04/12/2009 09/19/2010 Sebaceous cyst 07/20/2008 09/19/2010 documented as of this encounter (statuses as of 03/08/2022) [facility] Narrative* Problem Noted Date Resolved Date Tobacco use disorder 05/17/2012 12/31/2021 Other acquired deformity of toe 05/29/2011 09/29/2011 Hallux valgus (acquired) 05/29/2011 012 Abnormality of gait 05/29/2011 09/29/2011 Personal history of colonic polyps 10/03/2010 09/29/2011 Ingrowing nail 04/12/2009 09/19/2010 Sebaceous cyst 07/20/2008 09/19/2010 documented as of this encounter (statuses as of 06/06/2022) [facility] Narrative* Problem Noted Date Resolved Date Tobacco use disorder 05/17/2012 12/31/2021 Other acquired deformity of toe 05/29/2011 09/29/2011 Hallux valgus (acquired) 05/29/2011 012 Abnormality of gait 05/29/2011 09/29/2011 Personal history of colonic polyps 10/03/2010 09/29/2011 Ingrowing nail 04/12/2009 09/19/2010 Sebaceous cyst 07/20/2008 09/19/2010 documented as of this encounter (statuses as of 06/06/2022) [facility] Narrative* Problem Noted Date Resolved Date Tobacco use disorder 05/17/2012 12/31/2021 Other acquired deformity of toe 05/29/2011 09/29/2011 Hallux valgus (acquired) 05/29/2011 012 Abnormality of gait 05/29/2011 09/29/2011 Personal history of colonic polyps 10/03/2010 09/29/2011 Ingrowing nail 04/12/2009 09/19/2010 Sebaceous cyst 07/20/2008 09/19/2010 documented as of this encounter (statuses as of 06/07/2022) [facility] Narrative* Problem Noted Date Resolved Date Tobacco use disorder 05/17/2012 12/31/2021 Other acquired deformity of toe 05/29/2011 09/29/2011 Hallux valgus (acquired) 05/29/2011 012 Abnormality of gait 05/29/2011 09/29/2011 Personal history of colonic polyps 10/03/2010 09/29/2011 Ingrowing nail 04/12/2009 09/19/2010 Sebaceous cyst 07/20/2008 09/19/2010 documented as of this encounter (statuses as of 06/07/2022) [facility] Narrative* Problem Noted Date Resolved Date Tobacco use disorder 05/17/2012 12/31/2021 Other acquired deformity of toe 05/29/2011 09/29/2011 Hallux valgus (acquired) 05/29/2011 012 Abnormality of gait 05/29/2011 09/29/2011 Personal history of colonic polyps 10/03/2010 09/29/2011 Ingrowing nail 04/12/2009 09/19/2010 Sebaceous cyst 07/20/2008 09/19/2010 documented as of this encounter (statuses as of 06/12/2022) [facility] Narrative* Problem Noted Date Resolved Date Tobacco use disorder 05/17/2012 12/31/2021 Other acquired deformity of toe 05/29/2011 09/29/2011 Hallux valgus (acquired) 05/29/2011 012 Abnormality of gait 05/29/2011 09/29/2011 Personal history of colonic polyps 10/03/2010 09/29/2011 Ingrowing nail 04/12/2009 09/19/2010 Sebaceous cyst 07/20/2008 09/19/2010 documented as of this encounter (statuses as of 07/25/2022) [facility] Narrative* Problem Noted Date Resolved Date Tobacco use disorder 05/17/2012 12/31/2021 Other acquired deformity of toe 05/29/2011 09/29/2011 Hallux valgus (acquired) 05/29/2011 012 Abnormality of gait 05/29/2011 09/29/2011 Personal history of colonic polyps 10/03/2010 09/29/2011 Ingrowing nail 04/12/2009 09/19/2010 Sebaceous cyst 07/20/2008 09/19/2010 documented as of this encounter (statuses as of 08/15/2022) [facility] Narrative* Problem Noted Date Resolved Date Tobacco use disorder 05/17/2012 12/31/2021 Other acquired deformity of toe 05/29/2011 09/29/2011 Hallux valgus (acquired) 05/29/2011 012 Abnormality of gait 05/29/2011 09/29/2011 Personal history of colonic polyps 10/03/2010 09/29/2011 Ingrowing nail 04/12/2009 09/19/2010 Sebaceous cyst 07/20/2008 09/19/2010 documented as of this encounter (statuses as of 2022) [facility] Narrative* Problem Noted Date Resolved Date Tobacco use disorder 05/17/2012 12/31/2021 Other acquired deformity of toe 05/29/2011 09/29/2011 Hallux valgus (acquired) 05/29/2011 012 Abnormality of gait 05/29/2011 09/29/2011 Personal history of colonic polyps 10/03/2010 09/29/2011 Ingrowing nail 04/12/2009 09/19/2010 Sebaceous cyst 07/20/2008 09/19/2010 documented as of this encounter (statuses as of 08/30/2022) [facility] Narrative* Problem Noted Date Resolved Date Tobacco use disorder 05/17/2012 12/31/2021 Other acquired deformity of toe 05/29/2011 09/29/2011 Hallux valgus (acquired) 05/29/2011 012 Abnormality of gait 05/29/2011 09/29/2011 Personal history of colonic polyps 10/03/2010 09/29/2011 Ingrowing nail 04/12/2009 09/19/2010 Sebaceous cyst 07/20/2008 09/19/2010 documented as of this encounter (statuses as of 08/31/2022) [facility] Narrative* Problem Noted Date Resolved Date Tobacco use disorder 05/17/2012 12/31/2021 Other acquired deformity of toe 05/29/2011 09/29/2011 Hallux valgus (acquired) 05/29/2011 012 Abnormality of gait 05/29/2011 09/29/2011 Personal history of colonic polyps 10/03/2010 09/29/2011 Ingrowing nail 04/12/2009 09/19/2010 Sebaceous cyst 07/20/2008 09/19/2010 documented as of this encounter (statuses as of 09/19/2022) [facility] Narrative* Problem Noted Date Resolved Date Tobacco use disorder 05/17/2012 12/31/2021 Other acquired deformity of toe 05/29/2011 09/29/2011 Hallux valgus (acquired) 05/29/2011 012 Abnormality of gait 05/29/2011 09/29/2011 Personal history of colonic polyps 10/03/2010 09/29/2011 Ingrowing nail 04/12/2009 09/19/2010 Sebaceous cyst 07/20/2008 09/19/2010 documented as of this encounter (statuses as of 09/22/2022) [facility] History of Past illness Narrative* Problem Noted Date Resolved Date Tobacco use disorder 05/17/2012 12/31/2021 Other acquired deformity of toe 05/29/2011 09/29/2011 Hallux valgus (acquired) 05/29/2011 012 Abnormality of gait 05/29/2011 09/29/2011 Personal history of colonic polyps 10/03/2010 09/29/2011 Ingrowing nail 04/12/2009 09/19/2010 Sebaceous cyst 07/20/2008 09/19/2010 documented as of this encounter (statuses as of 09/27/2022) [facility] History of Past illness Narrative* Problem Noted Date Diagnosed Date Resolved Date Tobacco use disorder 05/17/2012 022 Other acquired deformity of toe 05/29/2011 09/29/2011 Hallux valgus (acquired) 05/29/2011 Abnormality of gait 05/29/2011 09/29/19 12 Personal history of colonic polyps 10/03/2010 09/29/2011 Ingrowing nail 04/12/2009 09/19/2010 Sebaceous cyst 07/20/2008 09/19/2010 documented as of this encounter (statuses as of 12/19/2022) [facility] History of Past illness Narrative* Problem Noted Date Diagnosed Date Resolved Date Tobacco use disorder 05/17/2012 022 Other acquired deformity of toe 05/29/2011 09/29/2011 Hallux valgus (acquired) 05/29/2011 Abnormality of gait 05/29/2011 09/29/19 12 Personal history of colonic polyps 10/03/2010 09/29/2011 Ingrowing nail 04/12/2009 09/19/2010 Sebaceous cyst 07/20/2008 09/19/2010 documented as of this encounter (statuses as of 12/28/2022) [facility] History of Past illness Narrative* Problem Noted Date Diagnosed Date Resolved Date Tobacco use disorder 05/17/2012 022 Other acquired deformity of toe 05/29/2011 09/29/2011 Hallux valgus (acquired) 05/29/2011 Abnormality of gait 05/29/2011 09/29/19 12 Personal history of colonic polyps 10/03/2010 09/29/2011 Ingrowing nail 04/12/2009 09/19/2010 Sebaceous cyst 07/20/2008 09/19/2010 documented as of this encounter (statuses as of 01/09/2023) [facility] History of Past illness Narrative* Problem Noted Date Diagnosed Date Resolved Date Tobacco use disorder 05/17/2012 022 Other acquired deformity of toe 05/29/2011 09/29/2011 Hallux valgus (acquired) 05/29/2011 Abnormality of gait 05/29/2011 09/29/19 12 Personal history of colonic polyps 10/03/2010 09/29/2011 Ingrowing nail 04/12/2009 09/19/2010 Sebaceous cyst 07/20/2008 09/19/2010 documented as of this encounter (statuses as of 04/09/2023) [facility] History of Past illness Narrative* Problem Noted Date Diagnosed Date Resolved Date Tobacco use disorder 05/17/2012 022 Other acquired deformity of toe 05/29/2011 09/29/2011 Hallux valgus (acquired) 05/29/2011 Abnormality of gait 05/29/2011 09/29/19 12 Personal history of colonic polyps 10/03/2010 09/29/2011 Ingrowing nail 04/12/2009 09/19/2010 Sebaceous cyst 07/20/2008 09/19/2010 documented as of this encounter (statuses as of 07/12/2023) [facility] History of Past illness Narrative* Problem Noted Date Diagnosed Date Resolved Date Tobacco use disorder 05/17/2012 022 Other acquired deformity of toe 05/29/2011 09/29/2011 Hallux valgus (acquired) 05/29/2011 Abnormality of gait 05/29/2011 09/29/19 12 Personal history of colonic polyps 10/03/2010 09/29/2011 Ingrowing nail 04/12/2009 09/19/2010 Sebaceous cyst 07/20/2008 09/19/2010 documented as of this encounter (statuses as of 07/13/2023) [facility] History of Past illness Narrative* Problem Noted Date Diagnosed Date Resolved Date Tobacco use disorder 05/17/2012 022 Other acquired deformity of toe 05/29/2011 09/29/2011 Hallux valgus (acquired) 05/29/2011 Abnormality of gait 05/29/2011 09/29/19 12 Personal history of colonic polyps 10/03/2010 09/29/2011 Ingrowing nail 04/12/2009 09/19/2010 Sebaceous cyst 07/20/2008 09/19/2010 documented as of this encounter (statuses as of 08/24/2023) [facility] History of Past illness Narrative* Problem Noted Date Resolved Date Other acquired deformity of toe 05/29/2011 09/29/2011 Hallux valgus (acquired) 05/29/2011 012 Abnormality of gait 05/29/2011 09/29/2011 Personal history of colonic polyps 10/03/2010 09/29/2011 Ingrowing nail 04/12/2009 09/19/2010 Sebaceous cyst 07/20/2008 09/19/2010 documented as of this encounter (statuses as of 11/28/2021) [facility] Note Date/Time August 12, 2024 11:[address] [place] [address] Medical Records Department [address] [place] [address] Discharge Summary 08/12/24 1128 MR#: [id number] Acct: [id number] Name: PEDRO KARIMI Rep #:[id number] : 1965 58 From: Yfn Mccarthy MD PCP: Dr. Margot Mai MD Status:ADM IN [facility] Prov[facility] Date of Admission: 08/06/24 Date of Discharge: 08/12/24 Primary Care Physician: Dr. Margot Mai MD Consultations 08/08/24 11:21 Consult: Gastroenterology Routine Consulting Provider: [facility] Reason for Consult: Intractable diarrhea EMERGENT Consult: No MD Notified: Yes Date Notified: 08/08/24 Time Notified: 11:21 Method of Notification: Text Reason For Visit: BLOODY DIARRHEA WITH N/V, FOOD POISONING AND Diagnosis Discharge Diagnosis (1) Bloody diarrhea: Status: Acute Code(s): R19.7 - Diarrhea, unspecified (2) Nausea and vomiting: Status: Acute Code(s): R11.2 - Nausea with vomiting, unspecified Qualifiers: Vomiting type: bilious vomiting Qualified Code(s): R11.14 - Bilious vomiting (3) Supratherapeutic INR: Status: Acute Code(s): R79.1 - Abnormal coagulation profile (4) Paroxysmal atrial fibrillation: Status: Acute Code(s): I48.0 - Paroxysmal atrial fibrillation (5) Obesity (BMI 30-39.9): Status: Acute Code(s): E66.9 - Obesity, unspecified (6) MARIELLA (obstructive sleep apnea): Status: Chronic Code(s): G47.33 - Obstructive sleep apnea (adult) (pediatric) Plan Patient is a 58-year-old Male with history of paroxysmal A-fib flutter on systemic anticoagulation with warfarin who presented with nausea vomiting as well as diarrhea of 3 days duration. She did develop bright red blood per rectum. Admitted to monitored bed with consultation placed to GI 1. Bloody diarrhea ? Patient admitted to monitored bed patient is on systemic anticoagulation with Coumadin held. Patient was apparently scheduled to undergo outpatient colonoscopy on 08/18/2024, given her presentation consult was placed to Dr. Britofor endoscopic evaluation was in the hospital. Patient was found to have leukocytosis with bandemia subsequently started on antibiotic therapy with ciprofloxacin and Flagyl. Dr. Brito also ordered DAISY with reflex panel to ruleout inflammatory bowel disease -Colonoscopy performed on 08/11/[address] Brito did show Impressions : - Diverticulosis in the entire examined colon. - Two 1 to 2 mm polyps in the transverse colon and in the ascending colon, removed with a hot snare. Resected and retrieved. - Congested mucosa in the entire examined colon. Biopsied. - Mild inflammation was found in the ileum secondary to ileitis. Biopsied. 08/12/2024 Patient seen bleeding has subsided. Patient was discharged on ciprofloxacin, Flagyl, budesonide. With plans for patient to follow-up with in 2 weeks time 2.Paroxysmal atrial fibrillation/flutter -Previous failed DCCV in 2021; cryoablation in 2021 patient is on rate controlling agent with diltiazem as well as metoprolol continued. Also on systemic anticoagulation with Coumadin she however presented with supratherapeutic INR and given her bleeding per rectum Coumadin was held 3. Coumadin induced coagulopathy ? Patient did receive vitamin K subsequent monitoring with daily INR ordered ? 08/12/2024; INR down to 1.8. Patient instructed to resume Coumadin on 08/15/2024 and to follow-up with primary care physician to have repeat INR to be drawn on 08/18/2024 4. Hypokalemia -Corrected per protocol ? 08/12/2024 additional replacement given. 5. Acute kidney injury ? Secondary to severe dehydration from diarrhea and decreased oral intake patient resuscitated with IV fluid with subsequent monitoring with daily BMPs ordered ? 08/12/2024; FRANSISCA resolved 6. Metabolic acidosis ? Secondary to FRANSISCA do expect improvement with treatment of underlying etiology 7. Diabetes mellitus type II -patient's oral hypoglycemics held. Placed on long acting insulin, Accu-Cheks a.c. and at bedtime and covered with sliding scale insulin 8. Essential 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 ? Patient blood pressure remained stable patient is on Lasix and lisinopril heldgiven her presentation 9. Class II obesity with BMI of 38.5 ? Complicating care weight loss advised 10. Nonischemic cardiomyopathy ? Thought to be tachycardia mediated monitored with serial echoes as outpatient 11. Chronic congestive heart failure with preserved ejection fraction ? Patient is on diuretic therapy held given her presentation?FRANSISCA 12. Tobacco dependence ? Counseled on cessation, offered nicotine patch for tobacco cravings 13.Depression -Continued home Wellbutrin 14. DVT prophylaxis -INR remains supratherapeutic Time spent in the patient's overall evaluation,decision-making process, review of diagnostic data, adjustment of management, discussion with other providers, nursing nursing and ancillary staff involved in patient's care documentation, 38 Minutes Medications at Discharge Home Medications bupropion HCl 150 mg tablet,12 hr sustained-release 150 mg PO BID [id number] metformin 1,000 mg tablet 1,000 mg PO BID dm 08/14/21 lisinopril 2.5 mg tablet 2.5 mg PO DAILY 05/22/22 insulin glargine 100 unit/mL (3 mL) subcutaneous pen (Lantus Solostar U-100 Insulin) 30 unit subcut BID 05/17/23 diltiazem HCl 120 mg capsule,extended release 24 hr 120 mg PO DAILY #90 caps 09/24/23 spironolactone 25 mg tablet See Rx Instructions .Route .COMPLEX #30 tabs 09/24/23 potassium chloride 10 mEq tablet,extended release 10 meq PO DAILY #90 tabs 07/18/24 furosemide 40 mg tablet 80 mg PO DAILY 08/05/24 metoprolol tartrate 75 mg tablet 75 mg PO Q12H 08/05/24 warfarin 2 mg tablet 2 mg PO WETH 08/05/24 Held on 08/12/24. Instructions: Resume on 08/15/24. warfarin 5 mg tablet 10 mg PO DAILY 08/05/24 Held on 08/12/24. Instructions: Resume on 08/15/24. budesonide 3 mg capsule,delayed,extended release 9 mg (3 x 3 mg) PO DAILY 60 days #180 ea 08/12/24 ciprofloxacin HCl 500 mg tablet (Cipro) 500 mg PO BID #10 tabs 08/12/24 colestipol 1 gram tablet 2 g (2 x 1 gram) PO 0600,1999 30 days #120 tabs 08/12/24 loperamide 2 mg capsule 2 mg PO TID PRN loose stool #30 caps 08/12/24 metronidazole 500 mg tablet 500 mg PO Q8H 5 days #15 tabs 08/12/24 potassium chloride 20 mEq tablet,extended release(part/cryst) 20 meq PO BIDCM 5 days #10 tabs 08/12/24 psyllium husk (aspartame) 3 gram oral powder packet (Daily Fiber (psyllium-aspartame)) 1 packet PO BID #54 ea 08/12/24 Physical Exam Narrative GENERAL: cooperative HEENT: Atraumatic; normocephalic EYES; Anicteric, Normal Conjunctiva NECK; supple, normal thyroid, RESPIRATORY: Diminished to auscultation CARDIOVASCULAR: Regular S1 S2, GI: soft, normoactive bowel sounds, : No Renal angle tenderness; EXTREMITIES: No edema, no clubbing, MUSCULOSKELETAL: no muscle wasting NEURO: Awake; no lateralizing signs. SKIN: No Rash PSYCH; Flat affect Weight / BMI Weight Weight: 136.6 kg Body Mass Index (BMI) 38.6 ABG / Lab / Microbiology Data 08/12/24 05:28 08/12/24 05:24 Laboratory: Laboratory Results - last 24 hr 08/11/24 11:04: POC Glucose 87 08/11/24 16:36: POC Glucose 170 H 08/11/24 21:49: POC Glucose 210 H 08/12/24 05:24: Sodium 137, Potassium 3.1 L, Chloride 109 H, Carbon Dioxide 16.8L, Anion Gap 12, BUN 13, Creatinine 0.78, Estim Creat Clear Calc 151.79, Est GFR(MDRD) Non-Af 103, BUN/Creatinine Ratio 17.2, Glucose 189 H, Calcium 7.9, Phosphorus 3.0, Magnesium 1.6 08/12/24 05:28: WBC 11.1 H, RBC 4.42 L, Hgb 12.4 L, Hct 36.7 L, MCV 83.0, MCH 28.1, MCHC 33.8, RDW Std Deviation 45.1 H, RDW Coeff of Jett 15.0 H, Plt Count 162, MPV 11.0, Neut % (Auto) Not Reportable, Absolute Neuts (auto) 6.5, AbsoluteLymphs (auto) 2.11, Total Counted 100, Neutrophils % (Manual) 54, Band Neutrophils % 4, Lymphocytes % (Manual) 19, Monocytes % (Manual) 8, Eosinophils % (Manual) 13 H, Basophils % (Manual) 1, Metamyelocytes % 1, Diff Path Review September, Platelet Estimate ADEQUATE, RBC Morphology NORM C+C, PT 21.1 H, INR 1.8 08/12/24 06:20: POC Glucose 199 H 08/12/24 09:13: POC Glucose 147 H Microbiology: Microbiology 08/10/24 09:15 Blood Culture (Wb) - Anticubital Left Blood Culture - Preliminary No growth in 48 hours. 08/10/24 09:10 Blood Culture (Wb) - Left Wrist Blood Culture - Preliminary No growth in 48 hours. 08/06/24 03:00 Stool Enteric Bacteriology - Final 08/06/24 03:00 Stool Stool Lactoferrin - Final 08/06/24 03:00 Stool Clostridioides difficile (PCR) - Final 08/05/24 21:24 Stool Stool Occult Blood (EDUARD) - Final Occult Blood Positive D/C Instructions Discharge Diet: 1800 Calorie Control Diet Discharge Activity: Return to Normal Activity Call your doctor if you observe: Fever of 101 or Higher, Shortness of breath, Fainting spells and Chest pain DC O2, CPAP, BIPAP Needs Home O2 Discharge instructions: No Meaningful Use Info Meaningful Use Meaningful Use Diagnoses (Choose all that apply): None applicable Ischemic Stroke Statin Dosing Therapy Reference: STATIN DOSE THERAPY REFERENCE: * Patients > 75 years receive moderate or high dose statin therapy. * Patients 75 years or YOUNGER should receive HIGH intensity statin dose unless contraindicated. You will be required to document reason for non-treatment if statin daily dose does not meet guidelines. HIGH DOSE STATIN THERAPY DAILY Atorvastatin > than or = to 40 mg Rosuvastatin > than or = to 20 mg Amlodipine + Atorvastatin > than or = to 2.5/40 mg Ezetimibe + Simvastatin 10/80 mg Simvastatin 80mg Discharge Plan Admission Admit Date/Time: 08/06/24 01:35 Attending Provider: Yfn Mccarthy Primary Care Provider: Margot Mai Consulting Providers: Yfn Dietz; Annetta Mar Discharge Orders/Prescriptions Prescriptions: New loperamide 2 mg Capsule 2 mg PO TID PRN (Reason: loose stool) Qty: 30 0RF potassium chloride 20 mEq Tablet,Er Particles/Crystals 20 meq PO BIDCM 5 Days Qty: 10 0RF budesonide 3 mg Capsule,Delayed,Extend.Release 9 mg PO DAILY 60 Days Qty: 180 0RF colestipol 1 gram Tablet 2 g PO 0600,1999 30 Days Qty: 120 0RF Daily Fiber (psyllium-aspart) 3 gram Powder In Packet 1 packet PO BID Qty: 54 0RF metronidazole 500 mg tablet 500 mg PO Q8H 5 Days Qty: 15 0RF ciprofloxacin HCl [Cipro] 500 mg tablet 500 mg PO BID Qty: 10 0RF Continued bupropion HCl 150 mg tablet sustained-release 12 hr 150 mg PO BID Patient Comments: TAKE 1 TABLET BY MOUTH TWICE DAILY metformin 1,000 mg tablet 1,000 mg PO BID Patient Comments: TAKE 1 TABLET BY MOUTH TWICE DAILY lisinopril 2.5 mg tablet 2.5 mg PO DAILY Patient Comments: TAKE 1 TABLET BY MOUTH ONCE DAILY insulin glargine [Lantus Solostar U-100 Insulin] 100 unit/mL (3 mL) insulin pen 30 unit SUBCUT BID Patient Comments: INJECT 30 UNITS in AM, and 30 UNITS in PM. metoprolol tartrate 75 mg tablet 75 mg PO Q12H furosemide 40 mg tablet 80 mg PO DAILY spironolactone 25 mg tablet See Rx Instructions .ROUTE .COMPLEX Qty: 30 12RF Dose Instruction: Take 1 tablet by mouth once daily Rx Instructions: Take 1 tablet by mouth once daily diltiazem HCl 120 mg capsule,extended release 24hr 120 mg PO DAILY Qty: 90 3RF potassium chloride 10 mEq tablet extended release 10 meq PO DAILY Qty: 90 3RF Held warfarin 2 mg tablet 2 mg PO WETH Hold Instructions: Resume on 08/15/24. Protocol: Dose Management Condition: Sunday Dose/Route: 10 mg Instruction: 2 x 5 mg tablets Condition: Sunday Dose/Route: 10 mg Instruction: 2 x 5 mg tablets Condition: Sunday Dose/Route: 10 mg Instruction: 2 x 5 mg tablets Condition: Sunday Dose/Route: 12 mg Instruction: 1 x 2 mg tablet, 2 x 5 mg tablets Condition: Dose/Route: 12 mg Instruction: 1 x 2 mg tablet, 2 x 5 mg tablets Condition: Sunday Dose/Route: 10 mg Instruction: 2 x 5 mg tablets Condition: Sunday Dose/Route: 10 mg Instruction: 2 x 5 mg tablets Protocol Text: Adjustment Start Date: 06/07/23 INR Value: 3.2 INR Date: 04/28/23 Recheck Date: 06/08/23 Rx Instructions: 2 mg orally daily with a two 5 mg tablet to =12 mg on ; or as directed warfarin 5 mg tablet 10 mg PO DAILY Hold Instructions: Resume on 08/15/24. Protocol: Dose Management Condition: Sunday Dose/Route: 10 mg Instruction: 2 x 5 mg tablets Condition: Sunday Dose/Route: 10 mg Instruction: 2 x 5 mg tablets Condition: Sunday Dose/Route: 10 mg Instruction: 2 x 5 mg tablets Condition: Sunday Dose/Route: 12 mg Instruction: 1 x 2 mg tablet, 2 x 5 mg tablets Condition: Dose/Route: 12 mg Instruction: 1 x 2 mg tablet, 2 x 5 mg tablets Condition: Sunday Dose/Route: 10 mg Instruction: 2 x 5 mg tablets Condition: Sunday Dose/Route: 10 mg Instruction: 2 x 5 mg tablets Protocol Text: Adjustment Start Date: 06/07/23 INR Value: 3.2 INR Date: 04/28/23 Recheck Date: 06/08/23 Rx Instructions: Two 5 mg orally daily (10mg daily and 12mg on ); as directed Referrals / Follow Up: Miedel,Margot, MD [Primary Care Provider] - In 1 Week (For repeat INR on 08/18/2024) Bipin Brito DO [Med Staff - Active Staff] - Within 1 Week Disposition Disposition (needs filled in before D/C Order can be placed): Home, Self Care Charges/Coding Visit Charges Inpatient E&M: 41483 Disch Hosp >30min 08/12/24 1130 <Electronically signed by Yfn Mccarthy MD> Cosigner Signature (if applicable): CC: Dr. Yfn Mccarthy MD; Dr. Margot Mai MD~ Signed [facility] Work Phone: Evaluation note* Diagnosis Onset Date Resolution Status Atrial fibrillation with rapid ventricular response acute CHF (congestive heart failure) acute Morbid obesity due to excess calories acute New onset a-fib acute [facility] Work Phone: Evaluation note* Diagnosis Onset Date Resolution Status Atrial fibrillation with rapid ventricular response acute CHF (congestive heart failure) acute Morbid obesity due to excess calories acute New onset a-fib acute Atrial fibrillation with rapid ventricular response acute Cardiomyopathy acute MARIELLA (obstructive sleep apnea) acute Essential 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 chron [facility] Work Phone: Evaluation note* Diagnosis Onset Date Resolution Status Atrial fibrillation with rapid ventricular response acute CHF (congestive heart failure) acute Morbid obesity due to excess calories acute New onset a-fib acute Atrial fibrillation with rapid ventricular response acute Cardiomyopathy acute MARIELLA (obstructive sleep apnea) acute Essential 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 chron ic Persistent atrial fibrillation acute [facility] Work Phone: Evaluation note* Diagnosis Onset Date Resolution Status Atrial fibrillation with rapid ventricular response acute CHF (congestive heart failure) acute Morbid obesity due to excess calories acute New onset a-fib acute Atrial fibrillation with rapid ventricular response acute Cardiomyopathy acute MARIELLA (obstructive sleep apnea) acute Essential 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 chron ic Persistent atrial fibrillation acute Atrial fibrillation with rapid ventricular response acute Cardiomyopathy acute MARIELLA (obstructive sleep apnea) acute Essential 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 chron [facility] Work Phone: Evaluation note* Diagnosis Onset Date Resolution Status Atrial fibrillation with rapid ventricular response acute CHF (congestive heart failure) acute Morbid obesity due to excess calories acute New onset a-fib acute Atrial fibrillation with rapid ventricular response acute Cardiomyopathy acute MARIELLA (obstructive sleep apnea) acute Essential 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 chron ic Persistent atrial fibrillation acute Atrial fibrillation with rapid ventricular response acute Cardiomyopathy acute MARIELLA (obstructive sleep apnea) acute Essential 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 chron ic Cardiomyopathy acute Persistent atrial fibrillation acute [facility] Work Phone: Evaluation note* Diagnosis Onset Date Resolution Status Morbid obesity due to excess calories acute Cardiomyopathy acute MARIELLA (obstructive sleep apnea) acute Essential 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 chron ic Persistent atrial fibrillation acute Cardiomyopathy acute MARILELA (obstructive sleep apnea) acute Essential 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 chron ic Cardiomyopathy acute Persistent atrial fibrillation acute [facility] Work Phone: Evaluation note* Diagnosis Onset Date Resolution Status Morbid obesity due to excess calories acute Cardiomyopathy acute MARIELLA (obstructive sleep apnea) acute Essential 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 chron ic Persistent atrial fibrillation acute Cardiomyopathy acute MARIELLA (obstructive sleep apnea) acute Essential 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 chron ic Cardiomyopathy acute Persistent atrial fibrillation acute Cardiomyopathy acute MARIELLA (obstructive sleep apnea) acute Essential 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 [facility] Work Phone: Evaluation note* Diagnosis Persistent atrial fibrillation (HCC)- Primary [...] (HCC) Morbid [facility] Onset Date Resolution Status Persistent atrial fibrillation acute MARIELLA (obstructive sleep apnea) acute Essential 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 chron ic Persistent atrial fibrillation acute MARIELLA (obstructive sleep apnea) acute Essential 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 [facility] Work Phone: Evaluation note* Diagnosis Onset Date Resolution Status Persistent atrial fibrillation acute MARIELLA (obstructive sleep apnea) acute Essential 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 [facility] Work Phone: Evaluation note* Diagnosis Persistent atrial fibrillation (HCC)- Primary [...] (HCC) Morbid obesity documented in this encounter [facility] note* Diagnosis Dyspnea, unspecified type- Primary Persistent atrial fibrillation (HCC) Atrial fibrillation documented in this encounter [facility] note* Diagnosis Onset Date Resolution Status MARIELLA (obstructive sleep apnea) acute Essential 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 [facility] Work Phone: Evaluation noteNo assessment information available [facility] Work Phone: Evaluation note* Diagnosis Onset Date Resolution Status Hx of colonic polyps acute [facility] Work Phone: Evaluation note* Diagnosis Status post catheter ablation of atrial fibrillation- Primary Chronic HFrEF (heart failure with reduced ejection fraction) (HCC) Persistent atrial fibrillation (HCC) Atrial fibrillation At risk for stroke Other specified personal history presenting hazards to health documented in this encounter [facility] note* Diagnosis Persistent atrial fibrillation (HCC)- Primary Atrial fibrillation Atypical atrial flutter (HCC) Atrial flutter Anticoagulant long-term use Long-term (current) use of anticoagulants documented in this encounter [facility] note* Diagnosis Dyspnea, unspecified type Persistent atrial fibrillation (HCC) Atrial fibrillation documented in this encounter [facility] note* Diagnosis Dyspnea, unspecified type Persistent atrial fibrillation (HCC) Atrial fibrillation documented in this encounter [facility] note* Diagnosis Onset Date Resolution Status Hx of colonic polyps acute HFrEF (heart failure with reduced ejection fraction) acute MARIELLA (obstructive sleep apnea) acute Persistent atrial fibrillation acute Essential 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 [facility] Work Phone: Evaluation note* Diagnosis Onset Date Resolution Status Hx of colonic polyps acute HFrEF (heart failure with reduced ejection fraction) acute MARIELLA (obstructive sleep apnea) acute Persistent atrial fibrillation acute Essential 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 [facility] Atrial flutter acute HFrEF (heart failure with reduced ejection fraction) acute MARIELLA (obstructive sleep apnea) acute Persistent atrial fibrillation acute Essential 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 [facility] Work Phone: Evaluation note* Diagnosis Persistent atrial fibrillation (HCC)- Primary Atrial fibrillation documented in this [facility] Diagnosis Onset Date Resolution Status HFrEF (heart failure with reduced ejection fraction) acute MARIELLA (obstructive sleep apnea) acute Persistent atrial fibrillation acute Essential 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 [facility] Atrial flutter acute HFrEF (heart failure with reduced ejection fraction) acute MARIELLA (obstructive sleep apnea) acute Persistent atrial fibrillation acute Essential 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 [facility] Work Phone: Evaluation note* Diagnosis Onset Date Resolution Status Atrial flutter acute HFrEF (heart failure with reduced ejection fraction) acute MARIELLA (obstructive sleep apnea) acute Persistent atrial fibrillation acute Essential 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 [facility] Work Phone: Evaluation note* Diagnosis Persistent atrial fibrillation (HCC)- Primary Atrial fibrillation Status post catheter ablation of atrial fibrillation Essential (primary) 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 Unspecified essential 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 MARIELLA on CPAP Obstructive sleep apnea (adult) (pediatric) At risk for stroke Other specified personal history presenting hazards to health Obesity, Class III, BMI 40-49.9 (morbid obesity) (HCC) Morbid obesity [facility] Diagnosis Other diabetic neurological complication associated with type 2 diabetes mellitus (HCC)- Primary Hyperkeratosis Acquired keratoderma Onychomycosis Dermatophytosis of nail Pain in toe of left foot Pain in limb Pain in toe of right foot Pain in limb [facility] Diagnosis Other diabetic neurological complication associated with type 2 diabetes mellitus (HCC)- Primary Onychomycosis Dermatophytosis of nail Pain in toe of left foot Pain in limb Pain in toe of right foot Pain in limb [facility] Diagnosis Other diabetic neurological complication associated with type 2 diabetes mellitus (HCC)- Primary Onychomycosis Dermatophytosis of nail Pain in toe of left foot Pain in limb Pain in toe of right foot Pain in limb Hallux valgus of left foot Ulcer of toe of left foot, with fat layer exposed (HCC) [facility] Ulcer of toe of left foot, with fat layer exposed (HCC) [facility] Diagnosis Onset Date Resolution Status Atrial flutter acute HFrEF (heart failure with reduced ejection fraction) acute MARIELLA (obstructive sleep apnea) acute Persistent atrial fibrillation acute Essential 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 [facility] Encounter for pre-employment health screening examination [facility] Work Phone: Evaluation note* Diagnosis Callus of foot- Primary Corns and callosities Hallux valgus of left foot Other diabetic neurological complication associated with type 2 diabetes mellitus (HCC) [facility] Diagnosis Persistent atrial fibrillation (HCC)- Primary Atrial fibrillation Status post catheter ablation of atrial fibrillation Primary cardiomyopathy (HCC) Other primary cardiomyopathies MARIELLA on CPAP Obstructive sleep apnea (adult) (pediatric) At risk for stroke Other specified personal history presenting hazards to health Anticoagulant long-term use Long-term (current) use of anticoagulants [facility] Diagnosis Diabetic polyneuropathy associated with type 2 diabetes mellitus (HCC)- Primary Onychomycosis Dermatophytosis of nail Pain in toe of left foot Pain in limb Pain in toe of right foot Pain in limb Callus of foot Corns and callosities [facility] Diagnosis Diabetic polyneuropathy associated with type 2 diabetes mellitus (HCC)- Primary Onychomycosis Dermatophytosis of nail Pain in toe of left foot Pain in limb Pain in toe of right foot Pain in limb Callus of foot Corns and callosities [facility] Diagnosis Persistent atrial fibrillation (HCC)- Primary Atrial fibrillation Status post catheter ablation of atrial fibrillation Atypical atrial flutter (HCC) Atrial flutter Chronic HFrEF (heart failure with reduced ejection fraction) (HCC) Essential (primary) 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 Unspecified essential 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 MARIELLA on CPAP Obstructive sleep apnea (adult) (pediatric) At risk for stroke Other specified personal history presenting hazards to health Obesity, Class III, BMI 40-49.9 (morbid obesity) (HCC) Morbid obesity [facility] Diagnosis Persistent atrial fibrillation (HCC)- Primary Atrial fibrillation [facility] Diagnosis Diabetic polyneuropathy associated with type 2 diabetes mellitus (HCC)- Primary Onychomycosis Dermatophytosis of nail Pain in toe of left foot Pain in limb Pain in toe of right foot Pain in limb Callus of foot Corns and callosities [facility] Diagnosis Persistent atrial fibrillation (HCC) Atrial fibrillation [facility] Diagnosis Persistent atrial fibrillation (HCC)- Primary Atrial fibrillation [facility] Diagnosis Onychomycosis- Primary Dermatophytosis of nail Pain in toe of left foot Pain in limb Pain in toe of right foot Pain in limb Diabetic polyneuropathy associated with type 2 diabetes mellitus (HCC) Hallux valgus of left foot Hammer toe of left foot [facility] Diagnosis Persistent atrial fibrillation (HCC)- Primary Atrial fibrillation Status post catheter ablation of atrial fibrillation Atypical atrial flutter (HCC) Atrial flutter At risk for stroke Other specified personal history presenting hazards to health Anticoagulant long-term use Long-term (current) use of anticoagulants Primary cardiomyopathy (HCC) Other primary cardiomyopathies Chronic HFrEF (heart failure with reduced ejection fraction) (HCC) Obesity, Class III, BMI 40-49.9 (morbid obesity) Morbid obesity MARIELLA on CPAP Obstructive sleep apnea (adult) (pediatric) [facility] Diagnosis Acquired hallux valgus of left foot Hallux valgus (acquired) Skin ulcer of toe with fat layer exposed, unspecified laterality (HCC) [facility] Diagnosis Onychomycosis- Primary Dermatophytosis of nail Pain in toe of left foot Pain in limb Pain in toe of right foot Pain in limb Diabetic polyneuropathy associated with type 2 diabetes mellitus (HCC) Acquired hallux valgus of left foot Hallux valgus (acquired) Skin ulcer of toe with fat layer exposed, unspecified laterality (HCC) [facility] Diagnosis Ulcer of toe of left foot, with fat layer exposed (HCC)- Primary Acquired hallux valgus of left foot Hallux valgus (acquired) Hammer toe of left foot Ulcer of toe of left foot, with fat layer exposed (HCC) [facility] Diagnosis Ulcer of toe of left foot, with fat layer exposed (HCC) [facility] Diagnosis Ulcer of toe of left foot, with fat layer exposed (HCC)- Primary Acquired hallux valgus of left foot Hallux valgus (acquired) Hammer toe of left foot Diabetic polyneuropathy associated with type 2 diabetes mellitus (HCC) [facility] Work Phone: [facility] instructionsW[facility] Work Phone: [phone] Dis[facility] instructionsW[facility] Work Phone: [phone] Dis[facility] instructionsW[facility] Work Phone: [phone] [facility] Work Phone: [phone] [facility] Work Phone: [facility] instructionsW[facility] Work Phone: [phone] [facility] Work Phone: [facility] Work Phone: [phone] for referral (narrative)* Outpatient Procedure (Routine) - Pending Review Specialty Diagnoses / Procedures Referred By Contac t Referred To [facility] Diagnoses Dyspnea, unspecified type Persistent atrial fibrillation (HCC) Procedures ECHO ECHO TTHRC R-T 2D W/WOM-MODE COMPL SPEC&COLR D Lamar Nogueira MD [address] [place] [address] [place] [phone] [facility] [address] [place] [address] Referral ID Status Reason Start Date Expiration Date Visits Requested Visits Authorized [id number] Pending Review Auto-Generat ed Referral 06/01/2022 03/08/2023 1 1 [facility] for referral (narrative)* Outpatient Procedure (Routine) - Closed Specialty Diagnoses / Procedures Referred By Contac t Referred To [facility] Diagnoses Dyspnea, unspecified type Persistent atrial fibrillation (HCC) Procedures ECHO ECHO TTHRC R-T 2D W/WOM-MODE COMPL SPEC&COLLamar Acuña MD [address] [place] [address] [place] [phone] [facility] [address] [place] [address] Referral ID Status Reason Start Date Expiration Date V isits Requested Visits Authorized [id number] Closed Auto-Generate d Referral 06/01/2022 03/08/2023 1 1 [facility] for referral (narrative)* Outpatient Procedure (Routine) - Additional Clinical Info Needed Specialty Diagnoses / Procedures Referred By Contac t Referred To Contact [facility] Diagnoses Persistent atrial fibrillation (HCC) Procedures ECHO ECHO TTHRC R-T 2D W/WOM-MODE COMPL SPEC&COLR D Keny Alexander APRN.[employer]ER [address] [place] [address] Fax: [facility] [address] [place] [address] Referral ID Status Reason Start Date Expiration Date Visits Requested Visits Authorized [id number] Additional Clinical Info Needed Auto-Generat ed Referral 12/19/2022 12/19/2023 1 1 [facility] for referral (narrative)* Diagnostic Procedure Only (Routine) - Closed Specialty Diagnoses / Procedures Referred By Contac t Referred To Contact XR IMAGING Diagnoses Ulcer of toe of left foot, with fat layer exposed (HCC) Procedures XR FOOT GENERAL 3V AP/LAT/OBL LEFT RADEX FOOT COMPLETE MINIMUM 3 VIEWS Lcuas Lutz [address] [place] [address] [place] [id number] Referral ID Status Reason Start Date Expiration Date V isits Requested Visits Authorized [id number] Closed Auto-Generate d Referral 07/12/2023 08/10/2024 1 1 [facility] for referral (narrative)* Outpatient Procedure (Routine) - New Request Specialty Diagnoses / Procedures Referred By Contac t Referred To Contact [facility] Diagnoses Persistent atrial fibrillation (HCC) Procedures ECG COMPLETE ECG ROUTINE ECG W/LEAST 12 LDS W/I&R Keny Alexander APRN.[employer]ER [address] [place] [address] Fax: [facility] [address] [place] [address] Referral ID Status Reason Start Date Expiration Date Visits Requested Visits Authorized [id number] New Request Auto-Generat ed Referral 04/04/2025 1 1 [facility] for referral (narrative)No reason for referral information availableWUniversity [facility]als [facility] Work Phone: Reason for visit Narrative* Outpatient Procedure (Routine) - Closed Specialty Diagnoses / Procedures Referred By Alma sanchez Referred To Contact [facility] Diagnoses Dyspnea, unspecified type Persistent atrial fibrillation (HCC) Procedures ECHO ECHO TTHRC R-T 2D W/WOM-MODE COMPL SPEC&COLR D Lamar Nogueira MD [address] [place] [address] Fax: [facility] [address] [address] Referral ID Status Reason Start Date Expiration Date V isits Requested Visits Authorized [id number] Closed Auto-Generate d Referral 06/01/2022 03/08/2023 1 1 [facility] for visit Narrative* Diagnostic Procedure Only (Routine) - Closed Specialty Diagnoses / Procedures Referred By Alma sanchez Referred To Contact XR IMAGING Diagnoses Ulcer of toe of left foot, with fat layer exposed (HCC) Procedures XR FOOT GENERAL 3V AP/LAT/OBL LEFT RADEX FOOT COMPLETE MINIMUM 3 VIEWS Lucas Lutz [address] [place] [address] [place] [id number] Referral ID Status Reason Start Date Expiration Date V isits Requested Visits Authorized [id number] Closed Auto-Generate d Referral 07/12/2023 08/10/2024 1 1 [facility] for visit Narrative* Consult, Test, Treat (Routine) - Authorized Specialty Diagnoses / Procedures Referred By Alma sanchez Referred To Contact PODIATRY Diagnoses MARIA LUISA EST [facility] Procedures MARIA LUISA EST [facility] Pilar Mcdaniels APRN.CNP [address] [place] [address] Phone: tel: fax: Podiatry [address] [place] [address] Phone: tel: fax: Referral ID Status Reason Start Date Expiration Date Visits Requested Visits Authorized [id number] Authorized Patient Cleared - Qualified 100% FAS 10/27/2024 01/25/2025 99 99 [facility] N[facility]* Consult, Test, Treat (Routine) - Authorized Specialty Diagnoses / Procedures Referred By Alma t Referred To Contact PODIATRY Diagnoses MARIA LUISA EST [facility] Procedures MARIA LUISA EST [facility] DI[facility] Pilar Mcdaniels, AURICULAR THERAPIST.DO[employer] HANGER [address] [place] [address] Phone: tel: fax: Podiatry [address] [place] [address] Phone: tel: fax: Referral ID Status Reason Start Date Expiration Date Visits Requested Visits Authorized [id number] Authorized Patient Cleared - Qualified 100% FAS 10/27/2024 01/25/2025 99 [facility] Chief Complaint and Reason for Visit Chief Complaint AFIB WITH RVR; HEART FAILURE AFIB WITH RVR; HEART FAILURE Reason for Visit Atrial fibrillation with rapid ventricular response CHF (congestive heart failure) Morbid obesity due to excess calories New onset a-fib Chief Complaint AFIB WITH RVR; HEART FAILURE AFIB WITH RVR; HEART FAILURE AFIB WITH RVR; HEART FAILURE AFIB WITH RVR; HEART FAILURE Reason for Visit Atrial fibrillation with rapid ventricular response CHF (congestive heart failure) Morbid obesity due to excess calories New onset a-fib Chief Complaint AFIB WITH RVR; HEART FAILURE AFIB WITH RVR; HEART FAILURE AFIB WITH RVR; HEART FAILURE AFIB WITH RVR; HEART FAILURE AFIB WITH RVR; HEART FAILURE COPY RASHMI AND PAU 3WK FU E-ORDER Reason for Visit Atrial fibrillation with rapid ventricular response CHF (congestive heart failure) Morbid obesity due to excess calories New onset a-fib Atrial fibrillation with rapid ventricular response Cardiomyopathy MARIELLA (obstructive sleep apnea) Essential 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 Chief Complaint AFIB WITH RVR; HEART FAILURE AFIB WITH RVR; HEART FAILURE AFIB WITH RVR; HEART FAILURE AFIB WITH RVR; HEART FAILURE AFIB WITH RVR; HEART FAILURE COPY RASHMI AND MIEDEL 3WK FU E-ORDER E ORDER E ORDER Reason for Visit Atrial fibrillation with rapid ventricular response CHF (congestive heart failure) Morbid obesity due to excess calories New onset a-fib Atrial fibrillation with rapid ventricular response Cardiomyopathy MARIELLA (obstructive sleep apnea) Essential 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 Chief Complaint AFIB WITH RVR; HEART FAILURE AFIB WITH RVR; HEART FAILURE AFIB WITH RVR; HEART FAILURE AFIB WITH RVR; HEART FAILURE AFIB WITH RVR; HEART FAILURE COPY RASHMI AND MIEDEL 3WK FU E-ORDER E ORDER E ORDER AFIB Atrial fibrillation Atrial fibrillation Reason for Visit Atrial fibrillation with rapid ventricular response CHF (congestive heart failure) Morbid obesity due to excess calories New onset a-fib Atrial fibrillation with rapid ventricular response Cardiomyopathy MARIELLA (obstructive sleep apnea) Essential 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 Persistent atrial fibrillation Chief Complaint AFIB WITH RVR; HEART FAILURE AFIB WITH RVR; HEART FAILURE AFIB WITH RVR; HEART FAILURE AFIB WITH RVR; HEART FAILURE AFIB WITH RVR; HEART FAILURE COPY RASHMI AND MIEDEL 3WK FU E-ORDER E ORDER AFIB Atrial fibrillation Atrial fibrillation 1 M FU E ORDER Reason for Visit Atrial fibrillation with rapid ventricular response CHF (congestive heart failure) Morbid obesity due to excess calories New onset a-fib Atrial fibrillation with rapid ventricular response Cardiomyopathy MARIELLA (obstructive sleep apnea) Essential 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 Persistent atrial fibrillation Atrial fibrillation with rapid ventricular response Cardiomyopathy MARIELLA (obstructive sleep apnea) Essential 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 Chief Complaint AFIB WITH RVR; HEART FAILURE AFIB WITH RVR; HEART FAILURE AFIB WITH RVR; HEART FAILURE AFIB WITH RVR; HEART FAILURE AFIB WITH RVR; HEART FAILURE COPY RASHMI AND MIEDEL 3WK FU E-ORDER E ORDER AFIB Atrial fibrillation Atrial fibrillation 1 M FU E ORDER E ORDER AFIB Atrial fibrillation Atrial fibrillation Reason for Visit Atrial fibrillation with rapid ventricular response CHF (congestive heart failure) Morbid obesity due to excess calories New onset a-fib Atrial fibrillation with rapid ventricular response Cardiomyopathy MARIELLA (obstructive sleep apnea) Essential 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 Persistent atrial fibrillation Atrial fibrillation with rapid ventricular response Cardiomyopathy MARIELLA (obstructive sleep apnea) Essential 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 Cardiomyopathy Persistent atrial fibrillation Chief Complaint AFIB WITH RVR; HEART FAILURE AFIB WITH RVR; HEART FAILURE AFIB WITH RVR; HEART FAILURE AFIB WITH RVR; HEART FAILURE AFIB WITH RVR; HEART FAILURE COPY RASHMI AND MIEDEL 3WK FU E-ORDER E ORDER AFIB Atrial fibrillation Atrial fibrillation 1 M FU E ORDER E ORDER AFIB Atrial fibrillation Atrial fibrillation Reason for Visit Morbid obesity due t o excess calories Cardiomyopathy MARIELLA (obstructive sleep apnea) Essential 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 Persistent atrial fibrillation Cardiomyopathy MARIELLA (obstructive sleep apnea) Essential 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 Cardiomyopathy Persistent atrial fibrillation Chief Complaint AFIB WITH RVR; HEART FAILURE AFIB WITH RVR; HEART FAILURE AFIB WITH RVR; HEART FAILURE AFIB WITH RVR; HEART FAILURE AFIB WITH RVR; HEART FAILURE COPY RASHMI AND MIEDEL 3WK FU E-ORDER E ORDER AFIB Atrial fibrillation Atrial fibrillation 1 M FU E ORDER E ORDER AFIB Atrial fibrillation Atrial fibrillation 6 wk FU, having cath, needs ekg E ORDER CARDIOMYOPATHY, HFR EF, AFIB, HTN Reason for Visit Morbid obesity due t o excess calories Cardiomyopathy MARIELLA (obstructive sleep apnea) Essential 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 Persistent atrial fibrillation Cardiomyopathy MARIELLA (obstructive sleep apnea) Essential 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 Cardiomyopathy Persistent atrial fibrillation Cardiomyopathy MARIELLA (obstructive sleep apnea) Essential 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 Chief Complaint AFIB WITH RVR; HEART FAILURE AFIB WITH RVR; HEART FAILURE AFIB WITH RVR; HEART FAILURE AFIB WITH RVR; HEART FAILURE AFIB WITH RVR; HEART FAILURE COPY RASHMI AND MIEDEL 3WK FU E-ORDER E ORDER AFIB Atrial fibrillation Atrial fibrillation 1 M FU E ORDER E ORDER AFIB Atrial fibrillation Atrial fibrillation 6 wk FU, having cath, needs ekg E ORDER CARDIOMYOPATHY, HFR EF, AFIB, HTN CARDIOMYOPATHY, HFR EF, AFIB, HTN Reason for Visit Morbid obesity due t o excess calories Cardiomyopathy MARIELLA (obstructive sleep apnea) Essential 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 Persistent atrial fibrillation Cardiomyopathy MARIELLA (obstructive sleep apnea) Essential 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 Cardiomyopathy Persistent atrial fibrillation Cardiomyopathy MARIELLA (obstructive sleep apnea) Essential 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 Chief Complaint E ORDER AFIB Atrial fibrillation Atrial fibrillation 1 M FU E ORDER E ORDER AFIB Atrial fibrillation Atrial fibrillation 6 wk FU, having cath, needs ekg E ORDER CARDIOMYOPATHY, HFR EF, AFIB, HTN CARDIOMYOPATHY, HFR EF, AFIB, HTN E ORDER Reason for Visit Persistent atrial fi brillation MARIELLA (obstructive sleep apnea) Essential 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 Persistent atrial fibrillation MARIELLA (obstructive sleep apnea) Essential 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 Chief Complaint E ORDER AFIB Atrial fibrillation Atrial fibrillation 1 M FU E ORDER E ORDER AFIB Atrial fibrillation Atrial fibrillation 6 wk FU, having cath, needs ekg E ORDER CARDIOMYOPATHY, HFR EF, AFIB, HTN CARDIOMYOPATHY, HFR EF, AFIB, HTN E ORDER AFIB E ORDER Reason for Visit Persistent atrial fi brillation MARIELLA (obstructive sleep apnea) Essential 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 Persistent atrial fibrillation MARIELLA (obstructive sleep apnea) Essential 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 Chief Complaint E ORDER AFIB Atrial fibrillation Atrial fibrillation 6 wk FU, having cath, needs ekg E ORDER CARDIOMYOPATHY, HFR EF, AFIB, HTN CARDIOMYOPATHY, HFR EF, AFIB, HTN E ORDER AFIB E ORDER Reason for Visit Persistent atrial fi brillation MARIELLA (obstructive sleep apnea) Essential 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 Chief Complaint 6 wk FU, having cath , needs ekg E ORDER CARDIOMYOPATHY, HFR EF, AFIB, HTN CARDIOMYOPATHY, HFR EF, AFIB, HTN E ORDER AFIB E ORDER E ORDER Amb Documentation Reason for Visit MARIELLA (obstructive sle ep apnea) Essential 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 Chief Complaint E ORDER AFIB E ORDER E ORDER Amb Documentation E ORDER Chief Complaint AFIB E ORDER E ORDER Amb Documentation E ORDER CSCOPE E ORDER Reason for Visit Hx of colonic polyps Chief Complaint E ORDER E ORDER Amb Documentation E ORDER CSCOPE E ORDER Reason for Visit Hx of colonic polyps Chief Complaint E ORDER Amb Documentation E ORDER CSCOPE E ORDER ATRIAL FLUTTER ON EKG DURING COLONOSCOPY E ORDER Reason for Visit Hx of colonic polyps HFrEF (heart failure with reduced ejection fraction) MARIELLA (obstructive sleep apnea) Persistent atrial fibrillation Essential 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 Chief Complaint E ORDER CSCOPE E ORDER PREOP ATRIAL FLUTTER ON EKG DURING COLONOSCOPY E ORDER E ORDER Reason for Visit Hx of colonic polyps HFrEF (heart failure with reduced ejection fraction) MARIELLA (obstructive sleep apnea) Persistent atrial fibrillation Essential 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 Chief Complaint CSCOPE E ORDER PREOP ATRIAL FLUTTER ON EKG DURING COLONOSCOPY E ORDER E ORDER Amb Documentation s/p ablation/ get Echo from [facility] before apt E ORDER Reason for Visit Hx of colonic polyps HFrEF (heart failure with reduced ejection fraction) MARIELLA (obstructive sleep apnea) Persistent atrial fibrillation Essential 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 Atrial flutter HFrEF (heart failure with reduced ejection fraction) MARIELLA (obstructive sleep apnea) Persistent atrial fibrillation Essential 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 Chief Complaint PREOP ATRIAL FLUTTER ON EKG DURING COLONOSCOPY E ORDER E ORDER Amb Documentation s/p ablation/ get Echo from [facility] before apt E ORDER E ORDER Reason for Visit HFrEF (heart failure with reduced ejection fraction) MARIELLA (obstructive sleep apnea) Persistent atrial fibrillation Essential 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 Atrial flutter HFrEF (heart failure with reduced ejection fraction) MARIELLA (obstructive sleep apnea) Persistent atrial fibrillation Essential 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 Chief Complaint E ORDER Amb Documentation s/p ablation/ get Echo from [facility] before apt E ORDER E ORDER E ORDER Reason for Visit Atrial flutter HFrEF (heart failure with reduced ejection fraction) MARIELLA (obstructive sleep apnea) Persistent atrial fibrillation Essential 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 Chief Complaint Amb Documentation s/p ablation/ get Echo from [facility] before apt E ORDER E ORDER E ORDER E ORDER Reason for Visit Atrial flutter HFrEF (heart failure with reduced ejection fraction) MARIELLA (obstructive sleep apnea) Persistent atrial fibrillation Essential 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 Chief Complaint E ORDER E ORDER E ORDER E ORDER 4 M FU Reason for Visit Atrial flutter HFrEF (heart failure with reduced ejection fraction) MARIELLA (obstructive sleep apnea) Persistent atrial fibrillation Essential 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 Chief Complaint E ORDER E ORDER 4 M FU E ORDER Reason for Visit Atrial flutter HFrEF (heart failure with reduced ejection fraction) MARIELLA (obstructive sleep apnea) Persistent atrial fibrillation Essential 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 Chief Complaint E ORDER 4 M FU E ORDER E ORDER Reason for Visit Atrial flutter HFrEF (heart failure with reduced ejection fraction) MARIELLA (obstructive sleep apnea) Persistent atrial fibrillation Essential 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 Chief Complaint E ORDER E ORDER E ORDER Chief Complaint E ORDER 4 m fu PE NON DOT DRUG & BAT/ THE [place] [employer] Reason for Visit Atrial flutter HFrEF (heart failure with reduced ejection fraction) MARIELLA (obstructive sleep apnea) Persistent atrial fibrillation Essential 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 Encounter for pre-employment health screening examination Chief Complaint Admit Date OVERDUE FOR OV/LAST SEEN 06/06--NEEDS EK G April 17, 2024 2:36pm BP CHECK April 21, 2024 3 :54pm ARRYHTHMIA May 20, 2024 2: 48pm Shortness of breath July 09, 2024 9:36am Reason for Visit Admit Date Diabetes April 17, 2024 2 :36pm Essential 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 April 17 2:36pm assisted current use of anticoagulant D [id number] 2:36pm Morbid obesity April 17, 2024 2 :36pm Non-ischemic cardiomyopathy April 2:36pm MARIELLA (obstructive sleep apnea) April 172023 2:36pm Persistent atrial fibrillation April 17, 2024 2:36pm Atrial fibrillation with rapid ventricul ar response April 17, 2024 2:36pm Chief Complaint Admit Date OVERDUE FOR OV/LAST SEEN 06/06--NEEDS EK G April 17, 2024 2:36pm BP CHECK April 21, 2024 3 :54pm ARRYHTHMIA May 20, 2024 2: 48pm Shortness of breath July 09, 2024 9:36am RECALL COLONOSCOPY July 28, 2024 2:5 0pm N/V/D August 05, 2024 8:3 0pm Reason for Visit Admit Date Diabetes April 17, 2024 2 :36pm Essential 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 April 17 2:36pm assisted current use of anticoagulant D [id number] 2:36pm Morbid obesity April 17, 2024 2 :36pm Non-ischemic cardiomyopathy April 2:36pm MARIELLA (obstructive sleep apnea) April 172023 2:36pm Persistent atrial fibrillation April 17, 2024 2:36pm Atrial fibrillation with rapid ventricul ar response April 17, 2024 2:36pm Hx of colonic polyps July 28, 2024 2: 50pm assisted current use of anticoagulant M arch 2024 2:50pm Adverse drug reaction August 05, 2024 8 :30pm Bloody diarrhea August 05, 2024 8:3 0pm Food poisoning August 05, 2024 8:3 0pm History of diverticulosis August 05 8:30pm Hx of colonic polyps August 05, 2024 8: 30pm Nausea and vomiting August 05, 2024 8:3 0pm Obesity (BMI 30-39.9) August 05, 2024 8 :30pm Paroxysmal atrial fibrillation July 8:30pm Supratherapeutic INR August 05, 2024 8: 30pm MARIELLA (obstructive sleep apnea) July 8:30pm Chief Complaint Admit Date OVERDUE FOR OV/LAST SEEN 06/06--NEEDS EK G April 17, 2024 2:36pm BP CHECK April 21, 2024 3 :54pm ARRYHTHMIA May 20, 2024 2: 48pm Shortness of breath July 09, 2024 9:36am RECALL COLONOSCOPY July 28, 2024 2:5 0pm BLOODY DIARRHEA WITH N/V, FOOD POISONING AND August 06, 2024 1:35am BLOODY DIARRHEA WITH N/V, FOOD POISONING AND August 07, 2024 6:07pm BLOODY DIARRHEA WITH N/V, FOOD POISONING AND August 08, 2024 11:22am BLOODY DIARRHEA WITH N/V, FOOD POISONING AND August 09, 2024 9:04am BLOODY DIARRHEA WITH N/V, FOOD POISONING AND August 09, 2024 10:06pm BLOODY DIARRHEA WITH N/V, FOOD POISONING AND August 10, 2024 8:43am BLOODY DIARRHEA WITH N/V, FOOD POISONING AND August 11, 2024 11:53am BLOODY DIARRHEA WITH N/V, FOOD POISONING AND August 11, 2024 11:54am BLOODY DIARRHEA WITH N/V, FOOD POISONING AND August 12, 2024 8:16am Reason for Visit Admit Date Diabetes April 17, 2024 2 :36pm Essential 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 April 17 2:36pm 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 D [id number] 2:36pm Morbid obesity April 17, 2024 2 :36pm Non-ischemic cardiomyopathy April 2:36pm MARIELLA (obstructive sleep apnea) April [id number] 2:36pm Persistent atrial fibrillation April 17, 2024 2:36pm Atrial fibrillation with rapid ventricul ar response April 17, 2024 2:36pm Hx of colonic polyps July 28, 2024 2: 50pm assisted current use of anticoagulant M arch 2024 2:50pm Adverse drug reaction August 06, 2024 1 :35am Bloody diarrhea August 06, 2024 1:3 5am Food poisoning August 06, 2024 1:3 5am History of diverticulosis August 06 1:35am Hx of colonic polyps August 06, 2024 1: 35am Nausea and vomiting August 06, 2024 1:3 5am Obesity (BMI 30-39.9) August 06, 2024 1 :35am Paroxysmal atrial fibrillation July 1:35am Supratherapeutic INR August 06, 2024 1: 35am MARIELLA (obstructive sleep apnea) July 1:35am Chief Complaint Admit Date ARRYHTHMIA May 20, 2024 2: 48pm Shortness of breath July 09, 2024 9:36am RECALL COLONOSCOPY July 28, 2024 2:5 0pm BLOODY DIARRHEA WITH N/V, FOOD POISONING AND August 06, 2024 1:35am BLOODY DIARRHEA WITH N/V, FOOD POISONING AND August 07, 2024 6:07pm BLOODY DIARRHEA WITH N/V, FOOD POISONING AND August 08, 2024 11:22am BLOODY DIARRHEA WITH N/V, FOOD POISONING AND August 09, 2024 9:04am BLOODY DIARRHEA WITH N/V, FOOD POISONING AND August 09, 2024 10:06pm BLOODY DIARRHEA WITH N/V, FOOD POISONING AND August 10, 2024 8:43am BLOODY DIARRHEA WITH N/V, FOOD POISONING AND August 11, 2024 11:53am BLOODY DIARRHEA WITH N/V, FOOD POISONING AND August 11, 2024 11:54am BLOODY DIARRHEA WITH N/V, FOOD POISONING AND August 12, 2024 8:16am 3 M FU August 12, 2024 2:54 pm Hospital FU August 14, 2024 8:56 am 2 [employer]ING [employer] 2024 3:5 0pm Reason for Visit Admit Date Hx of colonic polyps July 28, 2024 2: 50pm 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 [facility] 2024 2:50pm History of diverticulosis August 06 1:35am Hx of colonic polyps August 06, 2024 1: 35am Obesity (BMI 30-39.9) August 06, 2024 1 :35am Paroxysmal atrial fibrillation July 1:35am MARIELLA (obstructive sleep apnea) July 1:35am Adverse drug reaction August 06, 2024 1 :35am Bloody diarrhea August 06, 2024 1:3 5am Food poisoning August 06, 2024 1:3 5am Nausea and vomiting August 06, 2024 1:3 5am Supratherapeutic INR August 06, 2024 1: 35am History of diverticulosis August 12 2:54pm Diabetes August 12, 2024 2:54 pm Essential 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 August 12, 2024 2 :54pm 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 A pril 2024 2:54pm Morbid obesity August 12, 2024 2:54 pm Non-ischemic cardiomyopathy August 12, 2:54pm MARIELLA (obstructive sleep apnea) August 12, 2024 2:54pm Persistent atrial fibrillation August 2:54pm Anemia August 14, 2024 8:56 am Chief Complaint Admit Date Shortness of breath July 09, 2024 9:36am RECALL COLONOSCOPY July 28, 2024 2:5 0pm BLOODY DIARRHEA WITH N/V, FOOD POISONING AND August 06, 2024 1:35am BLOODY DIARRHEA WITH N/V, FOOD POISONING AND August 07, 2024 6:07pm BLOODY DIARRHEA WITH N/V, FOOD POISONING AND August 08, 2024 11:22am BLOODY DIARRHEA WITH N/V, FOOD POISONING AND August 09, 2024 9:04am BLOODY DIARRHEA WITH N/V, FOOD POISONING AND August 09, 2024 10:06pm BLOODY DIARRHEA WITH N/V, FOOD POISONING AND August 10, 2024 8:43am BLOODY DIARRHEA WITH N/V, FOOD POISONING AND August 11, 2024 11:53am BLOODY DIARRHEA WITH N/V, FOOD POISONING AND August 11, 2024 11:54am BLOODY DIARRHEA WITH N/V, FOOD POISONING AND August 12, 2024 8:16am 3 M FU August 12, 2024 2:54 pm Hospital FU August 14, 2024 8:56 am 2 [employer] 2024 3:5 0pm Chief Complaint Admit Date RECALL COLONOSCOPY July 28, 2024 2:5 0pm BLOODY DIARRHEA WITH N/V, FOOD POISONING AND August 06, 2024 1:35am BLOODY DIARRHEA WITH N/V, FOOD POISONING AND August 07, 2024 6:07pm BLOODY DIARRHEA WITH N/V, FOOD POISONING AND August 08, 2024 11:22am BLOODY DIARRHEA WITH N/V, FOOD POISONING AND August 09, 2024 9:04am BLOODY DIARRHEA WITH N/V, FOOD POISONING AND August 09, 2024 10:06pm BLOODY DIARRHEA WITH N/V, FOOD POISONING AND August 10, 2024 8:43am BLOODY DIARRHEA WITH N/V, FOOD POISONING AND August 11, 2024 11:53am BLOODY DIARRHEA WITH N/V, FOOD POISONING AND August 11, 2024 11:54am BLOODY DIARRHEA WITH N/V, FOOD POISONING AND August 12, 2024 8:16am 3 M FU August 12, 2024 2:54 pm Hospital FU August 14, 2024 8:56 am 2 [employer] 2024 3:5 0pm Test Result November 11, 2024 3:27p m Chief Complaint Admit Date RECALL COLONOSCOPY July 28, 2024 2:5 0pm BLOODY DIARRHEA WITH N/V, FOOD POISONING AND August 06, 2024 1:35am BLOODY DIARRHEA WITH N/V, FOOD POISONING AND August 07, 2024 6:07pm BLOODY DIARRHEA WITH N/V, FOOD POISONING AND August 08, 2024 11:22am BLOODY DIARRHEA WITH N/V, FOOD POISONING AND August 09, 2024 9:04am BLOODY DIARRHEA WITH N/V, FOOD POISONING AND August 09, 2024 10:06pm BLOODY DIARRHEA WITH N/V, FOOD POISONING AND August 10, 2024 8:43am BLOODY DIARRHEA WITH N/V, FOOD POISONING AND August 11, 2024 11:53am BLOODY DIARRHEA WITH N/V, FOOD POISONING AND August 11, 2024 11:54am BLOODY DIARRHEA WITH N/V, FOOD POISONING AND August 12, 2024 8:16am 3 M FU August 12, 2024 2:54 pm Hospital August 14, 2024 8:56 am 2 [employer] 2024 3:5 0pm Test Result November 11, 2024 3:27p m 3 M FU November 20, 2024 8:27 am Reason for Visit Admit Date Hx of colonic polyps July 28, 2024 2: 50pm assisted current use of anticoagulant [facility] 2024 2:50pm History of diverticulosis August 06 1:35am Hx of colonic polyps August 06, 2024 1: 35am Obesity (BMI 30-39.9) August 06, 2024 1 :35am Paroxysmal atrial fibrillation July 1:35am MARIELLA (obstructive sleep apnea) July 1:35am Adverse drug reaction August 06, 2024 1 :35am Bloody diarrhea August 06, 2024 1:3 5am Food poisoning August 06, 2024 1:3 5am Nausea and vomiting August 06, 2024 1:3 5am Supratherapeutic INR August 06, 2024 1: 35am History of diverticulosis August 12 2:54pm Diabetes August 12, 2024 2:54 pm Essential 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 August 12, 2024 2 :54pm assisted current use of anticoagulant A pril 2024 2:54pm Morbid obesity August 12, 2024 2:54 pm Non-ischemic cardiomyopathy August 12 2:54pm MARIELLA (obstructive sleep apnea) August 12, 2024 2:54pm Persistent atrial fibrillation August 2:54pm Anemia August 14, 2024 8:56 am Eosinophilic gastroenteritis November 11 3:27pm Essential 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 November 20, 2024 8 :27am 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 J chon 2024 8:27am Non-ischemic cardiomyopathy November 20 8:27am MARIELLA (obstructive sleep apnea) November 20, 2024 8:27am Persistent atrial fibrillation November 8:27am Family History No Family History Records Found Relationship Condition Age at Onset Recorded Date/T melissa Not Specified Malignant neoplasm of colon Unknown Cardiac disease Unknown Malignant neoplasm of testicle Unknown Malignant neoplasm of lung Unknown Chronic obstructive pulmonary disease Unk nown Advance Directives No Advanced Directives Records Found Advance Directive Response Recorded Date/ Time Living Will No August 14, 2021 9:21pm Power of Lapel Baster No August 14 9:21pm Advance Directive Response Recorded Date/ Time Living Will No August 15, 2021 1:54am Power of Lapel Baster No August 15 1:54am Advance Directive Response Recorded Date/ Time Advance Directives No September 29 8:48am Living Will No September 29, 2021 8 :48am Power of Lapel Baster No September 29, 2021 8:48am Advance Directive Response Recorded Date/ Time Advance Directives Yes September 30 10:53am Living Will Yes September 30, 2021 1 0:53am Power of Lapel Baster Yes September 30, 2021 10:53am Advance Directive Response Recorded Date/ Time Advance Directives on File No September 122021 10:53am Name of Medical Power of Lapel Baster Francisco Yusuf September 30, 2021 10:53am Advance Directives on File No October 27, 2021 10:59am Name of Medical Power of Lapel Baster Francisco Yusuf (fr iend) October 27, 2021 10:59am Advance Directives Yes October 27 10:59am Living Will Yes October 27, 2021 10:59am Power of Lapel Baster Yes October 27 10:59am Documents on File Type Date Recorded Patient [place] Expl anation Advance Directive(s) 10/29/2015 8:17 AM Advance Directive Response Recorded Date/ Time Advance Directives on File No September 122021 10:53am Name of Medical Power of Lapel Baster Francisco Yusuf September 30, 2021 10:53am Advance Directives on File No October 27, 2021 10:59am Name of Medical Power of Lapel Baster Francisco Yusuf (fr iend) October 27, 2021 10:59am Advance Directives on File Yes November 25, 2021 9:21am Name of Medical Power of Lapel Baster Francisco Yusuf November 25, 2021 9:21am Advance Directives Yes November 25 9:21am Living Will Yes November 25, 2021 9:21am Power of Lapel Baster Yes November 25 9:21am Advance Directive Response Recorded Date/ Time Advance Directives on File No October 27, 2021 10:59am Name of Medical Power of Lapel Baster Francisco Yusuf (fr iend) October 27, 2021 10:59am Advance Directives on File Yes November 25, 2021 9:21am Name of Medical Power of Lapel Baster Francisco Yusuf November 25, 2021 9:21am Advance Directives Yes November 25 9:21am Living Will Yes November 25, 2021 9:21am Power of Lapel Baster Yes November 25 9:21am Advance Directive Response Recorded Date/ Time Advance Directives on File Yes November 25, 2021 9:21am Name of Medical Power of Lapel Baster Francisco Yusuf November 25, 2021 9:21am Advance Directives Yes November 25 9:21am Living Will Yes November 25, 2021 9:21am Power of Lapel Baster Yes November 25 9:21am Advance Directive Response Recorded Date/ Time Advance Directives Yes November 25 8:21am Living Will Yes November 25, 2021 8:21am Power of Lapel Baster Yes November 25 8:21am Advance Directive Response Recorded Date/ Time Advance Directives Yes November 25 8:21am Living Will Yes May 22 2:12pm Power of Lapel Baster No May 22 023 2:12pm Advance Directive Response Recorded Date/ Time Advance Directives Yes November 25 9:21am Living Will Yes May 22 3:12pm Power of Lapel Baster No May 22 023 3:12pm Advance Directive Response Recorded Date/ Time Advance Directives Yes November 25 9:21am Advance Directive Response Recorded Date/ Time Living Will Yes August 05, 2024 9:09pm Do you have a Healthcare Power of Lapel Baster? Yes August 05, 2024 9:09pm Name of Medical Power of Lapel Baster pt unaware August 05, 2024 9:09pm Advance Directives Yes November 25 9:21am Advance Directive Response Recorded Date/ Time Living Will Yes August 06, 2024 2:06am Do you have a Healthcare Pow er of Lapel Baster? Yes August 06, 2024 2:06am Name of Medical Power of Lapel Baster fr aftab iend August 06, 2024 2:06am Advance Directives Yes November 25 9:21am Summary Purpose Medications Administered Section Inactive Administered Medications - [...] 1.3 mL Arm, Right Additional Source Comments Goals (unrecognized section and content) Goals may be documented in a n alternate sectionGoals may be documented in an alternate sectionGoals may be documented in an alternate sectionGoals may be documented in an alternate sectionGoals may be documented in an alternate sectionGoals may be documented in an alternate sectionGoals may be documented in an alternate sectionGoals may be documented in an alternate sectionGoals may be documented in an alternate sectionGoals may be documented in an alternate sectionGoals may be documented in an alternate sectionGoals may be documented in an alternate sectionGoals may be documented in an alternate sectionGoals may be documented in an alternate sectionGoals may be documented in an alternate sectionGoals may be documented in an alternate sectionGoals may be documented in an alternate sectionGoals may be documented in an alternate sectionGoals may be documented in an alternate sectionGoals may be documented in an alternate sectionGoals may be documented in an alternate section Source Comments (unrecognize d section and content) In the event this informatio n is protected by the Federal Confidentiality of Alcohol and Drug Abuse Patient Records regulations: The Federal rules restrict any use of the information to criminally investigate or prosecute any alcohol or drug abuse patient.[facility] the event this information is protected by the Federal Confidentiality of Alcohol and Drug Abuse Patient Records regulations: The Federal rules restrict any use of the information to criminally investigate or prosecute any alcohol or drug abuse patient.[facility] HospitalIn the event this information is protected by the Federal Confidentiality of Alcohol and Drug Abuse Patient Records regulations: The Federal rules restrict any use of the information to criminally investigate or prosecute any alcohol or drug abuse patient.[facility] HospitalIn the event this information is protected by the Federal Confidentiality of Alcohol and Drug Abuse Patient Records regulations: The Federal rules restrict any use of the information to criminally investigate or prosecute any alcohol or drug abuse patient.[facility] HospitalIn the event this information is protected by the Federal Confidentiality of Alcohol and Drug Abuse Patient Records regulations: The Federal rules restrict any use of the information to criminally investigate or prosecute any alcohol or drug abuse patient.[facility] HospitalIn the event this information is protected by the Federal Confidentiality of Alcohol and Drug Abuse Patient Records regulations: The Federal rules restrict any use of the information to criminally investigate or prosecute any alcohol or drug abuse patient.[facility] HospitalIn the event this information is protected by the Federal Confidentiality of Alcohol and Drug Abuse Patient Records regulations: The Federal rules restrict any use of the information to criminally investigate or prosecute any alcohol or drug abuse patient.[facility] HospitalIn the event this information is protected by the Federal Confidentiality of Alcohol and Drug Abuse Patient Records regulations: The Federal rules restrict any use of the information to criminally investigate or prosecute any alcohol or drug abuse patient.[facility] HospitalIn the event this information is protected by the Federal Confidentiality of Alcohol and Drug Abuse Patient Records regulations: The Federal rules restrict any use of the information to criminally investigate or prosecute any alcohol or drug abuse patient.[facility] HospitalIn the event this information is protected by the Federal Confidentiality of Alcohol and Drug Abuse Patient Records regulations: The Federal rules restrict any use of the information to criminally investigate or prosecute any alcohol or drug abuse patient.[facility] HospitalIn the event this information is protected by the Federal Confidentiality of Alcohol and Drug Abuse Patient Records regulations: The Federal rules restrict any use of the information to criminally investigate or prosecute any alcohol or drug abuse patient.[facility] HospitalIn the event this information is protected by the Federal Confidentiality of Alcohol and Drug Abuse Patient Records regulations: The Federal rules restrict any use of the information to criminally investigate or prosecute any alcohol or drug abuse patient.[facility] HospitalIn the event this information is protected by the Federal Confidentiality of Alcohol and Drug Abuse Patient Records regulations: The Federal rules restrict any use of the information to criminally investigate or prosecute any alcohol or drug abuse patient.[facility] HospitalIn the event this information is protected by the Federal Confidentiality of Alcohol and Drug Abuse Patient Records regulations: The Federal rules restrict any use of the information to criminally investigate or prosecute any alcohol or drug abuse patient.[facility] HospitalIn the event this information is protected by the Federal Confidentiality of Alcohol and Drug Abuse Patient Records regulations: The Federal rules restrict any use of the information to criminally investigate or prosecute any alcohol or drug abuse patient.[facility] HospitalIn the event this information is protected by the Federal Confidentiality of Alcohol and Drug Abuse Patient Records regulations: The Federal rules restrict any use of the information to criminally investigate or prosecute any alcohol or drug abuse patient.[facility] HospitalIn the event this information is protected by the Federal Confidentiality of Alcohol and Drug Abuse Patient Records regulations: The Federal rules restrict any use of the information to criminally investigate or prosecute any alcohol or drug abuse patient.[facility] HospitalIn the event this information is protected by the Federal Confidentiality of Alcohol and Drug Abuse Patient Records regulations: The Federal rules restrict any use of the information to criminally investigate or prosecute any alcohol or drug abuse patient.[facility] HospitalIn the event this information is protected by the Federal Confidentiality of Alcohol and Drug Abuse Patient Records regulations: The Federal rules restrict any use of the information to criminally investigate or prosecute any alcohol or drug abuse patient.[facility] HospitalIn the event this information is protected by the Federal Confidentiality of Alcohol and Drug Abuse Patient Records regulations: The Federal rules restrict any use of the information to criminally investigate or prosecute any alcohol or drug abuse patient.[facility] HospitalIn the event this information is protected by the Federal Confidentiality of Alcohol and Drug Abuse Patient Records regulations: The Federal rules restrict any use of the information to criminally investigate or prosecute any alcohol or drug abuse patient.[facility] HospitalIn the event this information is protected by the Federal Confidentiality of Alcohol and Drug Abuse Patient Records regulations: The Federal rules restrict any use of the information to criminally investigate or prosecute any alcohol or drug abuse patient.[facility] HospitalIn the event this information is protected by the Federal Confidentiality of Alcohol and Drug Abuse Patient Records regulations: The Federal rules restrict any use of the information to criminally investigate or prosecute any alcohol or drug abuse patient.[facility] HospitalIn the event this information is protected by the Federal Confidentiality of Alcohol and Drug Abuse Patient Records regulations: The Federal rules restrict any use of the information to criminally investigate or prosecute any alcohol or drug abuse patient.[facility] HospitalIn the event this information is protected by the Federal Confidentiality of Alcohol and Drug Abuse Patient Records regulations: The Federal rules restrict any use of the information to criminally investigate or prosecute any alcohol or drug abuse patient.[facility] HospitalIn the event this information is protected by the Federal Confidentiality of Alcohol and Drug Abuse Patient Records regulations: The Federal rules restrict any use of the information to criminally investigate or prosecute any alcohol or drug abuse patient.[facility] HospitalIn the event this information is protected by the Federal Confidentiality of Alcohol and Drug Abuse Patient Records regulations: The Federal rules restrict any use of the information to criminally investigate or prosecute any alcohol or drug abuse patient.[facility] HospitalIn the event this information is protected by the Federal Confidentiality of Alcohol and Drug Abuse Patient Records regulations: The Federal rules restrict any use of the information to criminally investigate or prosecute any alcohol or drug abuse patient.[facility] HospitalIn the event this information is protected by the Federal Confidentiality of Alcohol and Drug Abuse Patient Records regulations: The Federal rules restrict any use of the information to criminally investigate or prosecute any alcohol or drug abuse patient.[facility] HospitalIn the event this information is protected by the Federal Confidentiality of Alcohol and Drug Abuse Patient Records regulations: The Federal rules restrict any use of the information to criminally investigate or prosecute any alcohol or drug abuse patient.[facility] HospitalIn the event this information is protected by the Federal Confidentiality of Alcohol and Drug Abuse Patient Records regulations: The Federal rules restrict any use of the information to criminally investigate or prosecute any alcohol or drug abuse patient.[facility] HospitalIn the event this information is protected by the Federal Confidentiality of Alcohol and Drug Abuse Patient Records regulations: The Federal rules restrict any use of the information to criminally investigate or prosecute any alcohol or drug abuse patient.[facility] HospitalIn the event this information is protected by the Federal Confidentiality of Alcohol and Drug Abuse Patient Records regulations: The Federal rules restrict any use of the information to criminally investigate or prosecute any alcohol or drug abuse patient.[facility] HospitalIn the event this information is protected by the Federal Confidentiality of Alcohol and Drug Abuse Patient Records regulations: The Federal rules restrict any use of the information to criminally investigate or prosecute any alcohol or drug abuse patient.[facility] HospitalIn the event this information is protected by the Federal Confidentiality of Alcohol and Drug Abuse Patient Records regulations: The Federal rules restrict any use of the information to criminally investigate or prosecute any alcohol or drug abuse patient.[facility] HospitalIn the event this information is protected by the Federal Confidentiality of Alcohol and Drug Abuse Patient Records regulations: The Federal rules restrict any use of the information to criminally investigate or prosecute any alcohol or drug abuse patient.[facility] HospitalIn the event this information is protected by the Federal Confidentiality of Alcohol and Drug Abuse Patient Records regulations: The Federal rules restrict any use of the information to criminally investigate or prosecute any alcohol or drug abuse patient.[facility] HospitalIn the event this information is protected by the Federal Confidentiality of Alcohol and Drug Abuse Patient Records regulations: The Federal rules restrict any use of the information to criminally investigate or prosecute any alcohol or drug abuse patient.[facility] HospitalIn the event this information is protected by the Federal Confidentiality of Alcohol and Drug Abuse Patient Records regulations: The Federal rules restrict any use of the information to criminally investigate or prosecute any alcohol or drug abuse patient.[facility] HospitalIn the event this information is protected by the Federal Confidentiality of Alcohol and Drug Abuse Patient Records regulations: The Federal rules restrict any use of the information to criminally investigate or prosecute any alcohol or drug abuse patient.[facility] HospitalIn the event this information is protected by the Federal Confidentiality of Alcohol and Drug Abuse Patient Records regulations: The Federal rules restrict any use of the information to criminally investigate or prosecute any alcohol or drug abuse patient.[facility] HospitalIn the event this information is protected by the Federal Confidentiality of Alcohol and Drug Abuse Patient Records regulations: The Federal rules restrict any use of the information to criminally investigate or prosecute any alcohol or drug abuse patient.[facility] HospitalIn the event this information is protected by the Federal Confidentiality of Alcohol and Drug Abuse Patient Records regulations: The Federal rules restrict any use of the information to criminally investigate or prosecute any alcohol or drug abuse patient.[facility] HospitalIn the event this information is protected by the Federal Confidentiality of Alcohol and Drug Abuse Patient Records regulations: The Federal rules restrict any use of the information to criminally investigate or prosecute any alcohol or drug abuse patient.[facility] HospitalIn the event this information is protected by the Federal Confidentiality of Alcohol and Drug Abuse Patient Records regulations: The Federal rules restrict any use of the information to criminally investigate or prosecute any alcohol or drug abuse patient.[facility] HospitalIn the event this information is protected by the Federal Confidentiality of Alcohol and Drug Abuse Patient Records regulations: The Federal rules restrict any use of the information to criminally investigate or prosecute any alcohol or drug abuse patient.[facility] HospitalIn the event this information is protected by the Federal Confidentiality of Alcohol and Drug Abuse Patient Records regulations: The Federal rules restrict any use of the information to criminally investigate or prosecute any alcohol or drug abuse patient.[facility] HospitalIn the event this information is protected by the Federal Confidentiality of Alcohol and Drug Abuse Patient Records regulations: The Federal rules restrict any use of the information to criminally investigate or prosecute any alcohol or drug abuse patient.[facility] HospitalIn the event this information is protected by the Federal Confidentiality of Alcohol and Drug Abuse Patient Records regulations: The Federal rules restrict any use of the information to criminally investigate or prosecute any alcohol or drug abuse patient.[facility] HospitalIn the event this information is protected by the Federal Confidentiality of Alcohol and Drug Abuse Patient Records regulations: The Federal rules restrict any use of the information to criminally investigate or prosecute any alcohol or drug abuse patient.[facility] Reason for Visit (unrecogniz ed section and content) Reason Comments Appointment Reason Comments CARD New Patient 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 Reason Comments Results INR levels from [facility] Reason Comments Preparations For Procedures Reason Comments Cardiology Follow Up Atrial Fibrillation Reason Comments Orders Reason Comments Cardiology Follow Up S/P PVAI Reason Onset Date Comments Orders Treatment Planning 06/06/2022 Reason Comments Fiscal Accountant - Other Diltiazem CR Pr ior Auth Reason Comments Fiscal Accountant - Other Reason Onset Date Comments Follow Up 09/27/2022 Reason Comments CARD Follow Up 3 Month S/p ablation of a -fib Reason Comments Established Patient PVR follow up Reason Comments Results Reason Comments Established Patient Diabetic Foot Care Reason Comments Established Patient Diabetic Foot Care Reason Comments Ulcer Established Patient Follow Up Reason Comments CARD Follow Up 6 Month PAF, CHF, Aflutte r Reason Comments Established Patient Follow Up Diabetic Foot Care Reason Comments Established Patient Follow Up Diabetic Foot Check Reason Comments CARD Follow Up 6 Month Persistent atrial fibrillation Reason Comments Patient Update Results Reason Comments Patient Update Orders Reason Comments Patient Update Orders Reason Comments Follow Up Established Patient Pain Nail Care Reason Comments CARD Follow Up 6 Month Persistent afib Reason Comments Established Patient Follow Up Diabetic Foot Care Numbness Wound Check Specialty Diagnoses / Procedures Referred By Contiliana t Referred To Contact PODIATRY Diagnoses MARIA LUISA EST PODI NAIL CONCERN DIAB Procedures MARIA LUISA EST PODI NAIL CONCERN DIAB Pilar Mcdaniels M, AURICULAR THERAPIST.[facility] [place] [address] Phone: tel: fax: Podiatry [address] [place] [address] Phone: tel: fax: Referral ID Status Reason Start Date Expiration Date Visits Requested Visits Authorized [id number] Authorized Patient Cleared - Qualified 100% FAS 10/27/2024 01/25/2025 99 99 Reason Comments Established Patient Follow Up Diabetic Foot Ulcer Numbness Swelling Specialty Diagnoses / Procedures Referred By Contac t Referred To Contact PODIATRY Diagnoses MARIA LUISA EST PODI NAIL CONCERN DIAB Procedures MARIA LUISA EST PODI NAIL CONCERN Pilar Dhaliwal, AURICULAR THERAPIST.[address] [place] [address] Phone: tel: fax: Podiatry [address] [place] [address] Phone: tel: fax: Referral ID Status Reason Start Date Expiration Date Visits Requested Visits Authorized [id number] Authorized Patient Cleared - Qualified 100% FAS 10/27/2024 01/25/2025 99 99 Reason Comments Ulcer Healing, per patient decreased redness. Patient reports improvement. Specialty Diagnoses / Procedures Referred By Alma sanchez Referred To Contact PODIATRY Diagnoses MARIA LUISA EST PODI NAIL CONCERN DIAB Procedures MARIA LUISA EST PODI NAIL CONCERN Pilar Dhaliwal, AURICULAR THERAPIST.[address] [place] [address] Phone: tel: fax: Podiatry [address] [place] [address] Phone: tel: fax: Referral ID Status Reason Start Date Expiration Date Visits Requested Visits Authorized [id number] Authorized Patient Cleared - Qualified 100% FAS 10/27/2024 01/25/2025 99 99 (unrecognized sect ion and content) No Status Records FoundNo Status Records FoundNo Status Records FoundNo Status Records Found INFORMATION SOURCE (unrecogn ized section and content) DATE CREATED AUTHOR 12/02/2021 [facility] DATE CREATED AUTHOR AUTHOR'S ORGANIZ ATION 11/30/2024 [facility] DATE CREATED AUTHOR AUTHOR'S ORGANIZ ATION 12/03/2024 [facility] DATE CREATED AUTHOR AUTHOR'S ORGANIZ ATION 12/08/2024 [facility] Care Teams (unrecognized sec tion and content) Manager Custom Relationship Specialty Start Date End Date Margot Mai [address] [place] [address] PCP - General Family Practice 12/31/21 Rashmi, Lazaro S [address] [place] [address] Specialty Basin Cleaner Cardiology 12/31/21 Manager Custom Relationship Specialty Start Date End Date Margot Mai [address] [place] [address] PCP - General Family Practice 12/31/21 [facility] [place] S [address] [place] [address] Specialty Basin Cleaner Cardiology 12/31/21 Manager Custom Relationship Specialty Start Date End Date Margot Mai [address] [place] [address] PCP - General Family Medicine 12/31/21 Rashmi, Lazaro S [address] [place] [address] Specialty Basin Cleaner Cardiology 12/31/21 Manager Custom Relationship Specialty Start Date End Date Margot Mai [address] [place] [address] PCP - General Family Medicine 12/31/21 Rashmi, [place] S [address] [place] [address] Specialty Basin Cleaner Cardiology 12/31/21 Manager Custom Relationship Specialty Start Date End Date Margot Mai [address] [place] [address] PCP - General Family Medicine 12/31/21 Rashmi, [place] S [address] [place] [address] Specialty Basin Cleaner Cardiology 12/31/21 Manager Custom Relationship Specialty Start Date End Date Margot Mai MD [address] [place] [address] PCP - General Family Medicine 12/31/21 Rashmi, Lazaro S [address] [place] [address] Specialty Basin Cleaner Cardiology 12/31/21 Manager Custom Relationship Specialty Start Date End Date Margot Mai MD [address] [place] [address] PCP - General Family Medicine 12/31/21 Rashmi, [place] S [address] [place] [address] Specialty Basin Cleaner Cardiology 12/31/21 Manager Custom Relationship Specialty Start Date End Date Margot Mai MD [address] [place] [address] PCP - General Family Medicine 12/31/21 Rashmi, Lazaro S [address] [place] [address] Specialty Basin Cleaner Cardiology 12/31/21 Manager Custom Relationship Specialty Start Date End Date Margot Mai MD [address] [place] [address] PCP - General Family Medicine 12/31/21 Rashmi, Lazaro S [address] [place] [address] Specialty Basin Cleaner Cardiology 12/31/21 Manager Custom Relationship Specialty Start Date End Date Margot Mai MD [address] [place] [address] PCP - General Family Medicine 12/31/21 Lazaro Marcus [address] [facility] [address] [place] [address] Specialty Basin Cleaner Cardiology 12/31/21 Team Status: Active Member Role Status Dates Dr. Margot Mai MD Family Provider Active Dr. Margot Mai MD Primary Care Provider Active Team Status: Active Member Role Status Dates Dr. Margot Mai MD Primary Care Provider Active Radha Ahn Attending Provider Active Team Status: Inactive Member Role Status Dates Dr. Margot Mai MD Primary Care Provider, Referrin g Provider Active Dr. Yvonne Tamayo MD Attending Provider Active Team Status: Active Member Role Status Dates Dr. Margot Mai MD Primary Care Provider Active Dr. Yvonne Tamayo MD Attending Provi michelle, Referring Provider, Other Provider Active Team Status: Inactive Member Role Status Dates Dr. Margot Mai MD Primary Care Provider, Referrin g Provider Active Carmen Hollingsworth HYDROELECTRIC MACHINERY MECHANIC HELPER, HYDROELECTRIC MACHINERY MECHANIC HELPER-C Attending Provider Active Team Status: Inactive Member Role Status Dates Dr. Margot Mai MD Primary Care Provider Active Monisha Torrez PA, PA Attending Provider, Referr ing Provider Active Team Status: Inactive Member Role Status Dates Dr. Margot Mai MD Primary Care Provider Active Dr. Yvonne Tamayo MD Attending Provider, Referring Provider Active Team Status: Active Member Role Status Dates Dr. Margot Mai MD Primary Care Provider Active Dr. Lazaro Marcus MD Attending Provider Active Dr. Yvonne Tamayo MD Referring Provider Active Manager Custom Relationship Specialty Start Date End Date Margot Mai MD [address] [place] [address] [place], [place] [id number] PCP - General Family Medicine 12/31/21 Rashmi, Lazaro S [address] [place] [address] Specialty Basin Cleaner Cardiology 12/31/21 Team Status: Inactive Member Role Status Dates Dr. Margot Mai MD Primary Care Provider, [facility] Provider Active Monisha HUBER, PA Attending Provider Active Team Status: Active Member Role Status Dates Dr. Margot Mai MD Primary Care Provider Active Akin Packer Attending Provider Active Manager Custom Relationship Specialty Start Date End Date Margot Mai MD [address] [place], [place] [address] PCP - General Family Medicine 12/31/21 Rashmi, [place] S [address] [place] [address] Specialty Basin Cleaner Cardiology 12/31/21 Manager Custom Relationship Specialty Start Date End Date Margot Mai MD [address] [place], [place] [address] PCP - General Family Medicine 12/31/21 Rashmi, Lazaro S [address] [place] [address] Specialty Basin Cleaner Cardiology 12/31/21 Manager Custom Relationship Specialty Start Date End Date Margot Mai MD [address] [place] [address] PCP - General Family Medicine 12/31/21 Rashmi, [place] S [address] [place] [address] Specialty Basin Cleaner Cardiology 12/31/21 Manager Custom Relationship Specialty Start Date End Date Margot Mai MD [address] [place], [place] [address] PCP - General Family Medicine 12/31/21 Lazaro Marcus [address] [place] [address] Specialty Basin Cleaner Cardiology 12/31/21 Manager Custom Relationship Specialty Start Date End Date Margot Mai MD [address] [place] [address] PCP - General Family Medicine 12/31/21 Lazaro Marcus [address] [place] [address] Specialty Basin Cleaner Cardiology 12/31/21 Manager Custom Relationship Specialty Start Date End Date Margot Mai MD [address] [place] [address] PCP - General Family Medicine 12/31/21 Lazaro Marcus MD [address] [place] [address] Specialty Basin Cleaner Cardiology 12/31/21 Team Status: Inactive Member Role Status Dates Dr. Margot Mai MD Primary Care Provider, Other Pr ovider Active Monisha HUBER, PA Attending Provider, Referr ing Provider Active Manager Custom Relationship Specialty Start Date End Date Margot Mai MD [address] [place] [address] PCP - General Family Medicine 12/31/21 Lazaro Marcus MD [address] [place], [place] [address]- Specialty Basin Cleaner Cardiology 12/31/21 Manager Custom Relationship Specialty Start Date End Date Margot Mai MD [address] [place], [place] [id number] PCP - General Family Medicine 12/31/21 Lazaro Marcus MD [address] [place], [place] [id number]- Specialty Basin Cleaner Cardiology 12/31/21 Team Status: Inactive Member Role Status Dates Dr. Margot Mai MD Primary Care Provider, Refersarah g Provider Active Dom HUBER, PA Attending Provider Active Team Status: Inactive Member Role Status Dates Dr. Margot Mai MD Primary Care Provider, Attendin g Provider Active Manager Custom Relationship Specialty Start Date End Date Margot Mai MD [address] [place], [place] [address] PCP - General Family Medicine 12/31/21 Lazaro Marcus MD [address] [place] [address] Specialty Basin Cleaner Cardiology 12/31/21 Manager Custom Relationship Specialty Start Date End Date Margot Mai MD [address] [place], [place] [id number] PCP - General Family Medicine 12/31/21 Lazaro Marcus MD [address] [place], [place] [id number]- Specialty Basin Cleaner Cardiology 12/31/21 Lamar Nogueira MD [address] [place] [address] (Fax) Specialty Basin Cleaner Cardiology 09/15/23 Manager Custom Relationship Specialty Start Date End Date Margot Mai MD [address] [place] [address] PCP - General Family Medicine 12/31/21 Lazaro Marcus MD [address] [place] [address] Specialty Basin Cleaner Cardiology 12/31/21 Lamar Nogueira MD [address] [place] [phone] (Fax) Specialty Basin Cleaner Cardiology 09/15/23 Manager Custom Relationship Specialty Start Date End Date Margot Mai MD [address] [place] [address] PCP - General Family Medicine 12/31/21 Lazaro Marcus MD [address] [place] [address] Specialty Basin Cleaner Cardiology 12/31/21 Lamar Nogueira MD [address] [place] [phone] (Fax) Specialty Basin Cleaner Cardiology 09/15/23 Manager Custom Relationship Specialty Start Date End Date Margot Mai MD [address] [place] [address] PCP - General Family Medicine 12/31/21 Lazaro Marcus MD [address] [place], [place] [id number] Specialty Basin Cleaner Cardiology 12/31/21 Lamar Nogueira MD [address] [place] [phone] (Fax) Specialty Basin Cleaner Cardiology 09/15/23 Manager Custom Relationship Specialty Start Date End Date Margot Mai MD [address] [place], [place] [id number] PCP - General Family Medicine 12/31/21 Lazaro Marcus MD [address] [place] [address] Specialty Basin Cleaner Cardiology 12/31/21 Lamar Nogueira MD [address] [place] [phone] (Fax) Specialty Basin Cleaner Cardiology 09/15/23 Manager Custom Relationship Specialty Start Date End Date Margot Mai MD [address] [place] [address] PCP - General Family Medicine 12/31/21 Lazaro Marcus MD [address] [place], [place] [id number] 532- Specialty Basin Cleaner Cardiology 12/31/21 Lamar Nogueira MD [address] [place] [phone] (Fax) Specialty Basin Cleaner Cardiology 09/15/23 Manager Custom Relationship Specialty Start Date End Date Margot Mai MD [address] [place] [address] PCP - General Family Medicine 12/31/21 Lazaro Marcus MD [address] [place] [address] Specialty Basin Cleaner Cardiology 12/31/21 Lamar Nogueira MD [address] [place] [phone] Specialty Basin Cleaner Cardiology 09/15/23 Manager Custom Relationship Specialty Start Date End Date Margot Mai MD [address] [place] [address] PCP - General Family Medicine 12/31/21 Lazaro Marcus MD [address] [place] [address] Specialty Basin Cleaner Cardiology 12/31/21 Lamar Nogueira MD [address] [place] [phone] Specialty Basin Cleaner Cardiology 09/15/23 Manager Custom Relationship Specialty Start Date End Date Margot Mai MD [address] [place], [place] [phone] PCP - General Family Medicine 12/31/21 Lazaro Marcus MD [address] [place] [address] Specialty Basin Cleaner Cardiology 12/31/21 Lamar Nogueira MD [address] [place] [address] Specialty Basin Cleaner Cardiology 09/15/23 Manager Custom Relationship Specialty Start Date End Date Margot Mai MD [address] [place] [address] PCP - General Family Medicine 12/31/21 Lazaro Marcus MD [address] [place] [address] Specialty Basin Cleaner Cardiology 12/31/21 Lamar Nogueira MD [address] [place] [phone] Specialty Basin Cleaner Cardiology 09/15/23 Manager Custom Relationship Specialty Start Date End Date Margot Mai MD [address] [place] [address] PCP - General Family Medicine 12/31/21 Lazaro Marcus MD [address] [place] [address] Specialty Basin Cleaner Cardiology 12/31/21 Lamar Nogueira MD [address] [place] [phone] Specialty Basin Cleaner Cardiology 09/15/23 Manager Custom Relationship Specialty Start Date End Date Margot Mai MD [address] [place] [address] PCP - General Family Medicine 12/31/21 Lazaro Marcus MD [address] [place] [address] Specialty Basin Cleaner Cardiology 12/31/21 Lamar Nogueira MD [address] [place] [phone] Specialty Basin Cleaner Cardiology 09/15/23 Manager Custom Relationship Specialty Start Date End Date Margot Mai MD [address] [facility] [place] [address] PCP - General Family Medicine 12/31/21 Lazaro Marcus MD [address] [place] [address] Specialty Basin Cleaner Cardiology 12/31/21 Lamar Nogueira MD [address] [place] [phone] Specialty Basin Cleaner Cardiology 09/15/23 Team Status: Active Member Role Status Dates Dr. Margot Mai MD Primary Care Provider Active Team Status: Inactive Member Role Status Dates Dr. Margot Mai MD Primary Care Provider Active Start: April 17, 2024 End: April 17, 2024 Dr. Margot Mai MD Referring Provider Active Start: April 17, 2024 End: April 17, 2024 Dr. Buster Harvey MD Attending Provider Active Start: April 17, 2024 End: April 17, 2024 Team Status: Inactive Member Role Status Dates Dr. Margot Mai MD Primary Care Provider Active Start: April 21, 2024 End: April 21, 2024 Dr. Margot Mai MD Referring Provider Active Start: April 21, 2024 End: April 21, 2024 Dr. Buster Harvey MD Attending Provider Active Start: April 21, 2024 End: April 21, 2024 Team Status: Inactive Member Role Status Dates Dr. Margot Mai MD Primary Care Provider Active Start: May 20, 2024 End: May 20, 2024 Dr. Buster Harvey MD Attending Provider Active Start: May 20, 2024 End: May 20, 2024 Dr. Buster Harvey MD Referring Provider Active Start: May 20, 2024 End: May 20, 2024 Team Status: Active Member Role Status Dates Dr. aMrgot Mai MD Primary Care Provider Active Start: May 20, 2024 Dr. Buster Harvey MD Attending Provider Active Start: May 20, 2024 Team Status: Inactive Member Role Status Dates Dr. Margot Mai MD Primary Care Provider Active Start: July 09, 2024 End: July 09, 2024 SOLE Hartley Attending Provider Active St art: July 09, 2024 End: July 09, 2024 SOLE Hartley Referring Provider Active St art: July 09, 2024 End: July 09, 2024 Team Status: Inactive Member Role Status Dates Dr. Margot Mai MD Primary Care Provider Active Start: July 28, 2024 End: July 28, 2024 Dr. Margot Mai MD Referring Provider Active Start: July 28, 2024 End: July 28, 2024 Dr. Yvonne Tamayo MD Attending Provider Active Start: July 28, 2024 End: July 28, 2024 Team Status: Inactive Member Role Status Dates Dr. Margot Mai MD Primary Care Provider Active Start: August 05, 2024 End: August 06, 2024 Dr. Jose Juan Gotti DO Emergency Provider Activ e Start: August 05, 2024 End: August 06, 2024 Team Status: Inactive Member Role Status Dates Dr. Margot Mai MD Primary Care Provider Active Start: August 06, 2024 End: August 12, 2024 Dr. Jose Juan Gotti DO Emergency Provider Activ e Start: August 06, 2024 End: August 12, 2024 Dr. Yfn Dietz , DO Admit Provider Active Start: August 06, 2024 End: August 12, 2024 Dr. Yfn Dietz , DO Other Provider Active Start: August 06, 2024 End: August 12, 2024 Dr. Yfn Mccarthy MD Attending Provider Active Start: August 06, 2024 End: August 12, 2024 Dr. Annetta Mar , DO Other Provider Active Start : August 06, 2024 End: August 12, 2024 Team Status: Active Member Role Status Dates Dr. Margot Mai MD Primary Care Provider Active Start: August 07, 2024 Dr. Jose Juan Gotti , DO Emergency Provider Activ e Start: August 07, 2024 Dr. Yfn Dietz , DO Admit Provider Active Start: August 07, 2024 Dr. Yfn Dietz , DO Other Provider Active Start: August 07, 2024 Dr. Annetta Mar , DO Attending Provider Active S tart: August 07, 2024 Dr. Annetta Mar , DO Other Provider Active Start : August 07, 2024 Team Status: Active Member Role Status Dates Dr. Margot Mai MD Primary Care Provider Active Start: August 08, 2024 Dr. Jose Juan Gotti , DO Emergency Provider Activ e Start: August 08, 2024 Dr. Yfn Dietz , DO Admit Provider Active Start: August 08, 2024 Dr. Yfn Dietz , DO Other Provider Active Start: August 08, 2024 Dr. Annetta Mar , DO Attending Provider Active S tart: August 08, 2024 Dr. Annetta Mar , DO Other Provider Active Start : August 08, 2024 Team Status: Active Member Role Status Dates Dr. Margot Mai MD Primary Care Provider Active Start: August 09, 2024 Dr. Jose Juan Gotti , DO Emergency Provider Activ e Start: August 09, 2024 Dr. Yfn Dietz , DO Admit Provider Active Start: August 09, 2024 Dr. Yfn Dietz , DO Other Provider Active Start: August 09, 2024 Dr. Annetta Mar , DO Attending Provider Active S tart: August 09, 2024 Dr. Annetta Mar , DO Other Provider Active Start : August 09, 2024 Team Status: Active Member Role Status Dates Dr. Margot Mai MD Primary Care Provider Active Start: August 09, 2024 Dr. Jose Juan Gotti , DO Emergency Provider Activ e Start: August 09, 2024 Dr. Yfn Dietz , DO Admit Provider Active Start: August 09, 2024 Dr. Yfn Dietz , DO Other Provider Active Start: August 09, 2024 Dr. Annetta Mar , DO Other Provider Active Start : August 09, 2024 Dr. Bipin Brito , DO Attending Provider Active Start: August 09, 2024 Team Status: Active Member Role Status Dates Dr. Margot Mai MD Primary Care Provider Active Start: August 10, 2024 Dr. Jose Juan Gotti , DO Emergency Provider Activ e Start: August 10, 2024 Dr. Yfn Dietz , DO Admit Provider Active Start: August 10, 2024 Dr. Yfn Dietz , DO Other Provider Active Start: August 10, 2024 Dr. Annetta Mar , DO Attending Provider Active S tart: August 10, 2024 Dr. Annetta Mar , DO Other Provider Active Start : August 10, 2024 Team Status: Active Member Role Status Dates Dr. Margot Mai MD Primary Care Provider Active Start: August 11, 2024 Dr. Jose Juan Gotti , DO Emergency Provider Activ e Start: August 11, 2024 Dr. Yfn Dietz , DO Admit Provider Active Start: August 11, 2024 Dr. Yfn Dietz , DO Other Provider Active Start: August 11, 2024 Dr. Yfn Mccarthy MD Other Provider Active Star t: August 11, 2024 Dr. Annetta Mar , DO Other Provider Active Start : August 11, 2024 Dr. Bipin Brito , DO Attending Provider Active Start: August 11, 2024 Team Status: Active Member Role Status Dates Dr. Margot Mai MD Primary Care Provider Active Start: August 11, 2024 Dr. Jose Juan Gotti , DO Emergency Provider Activ e Start: August 11, 2024 Dr. Yfn Dietz , DO Admit Provider Active Start: August 11, 2024 Dr. Yfn Dietz , DO Other Provider Active Start: August 11, 2024 Dr. Yfn Mccarthy MD Attending Provider Active Start: August 11, 2024 Dr. Yfn Mccarthy MD Other Provider Active Star t: August 11, 2024 Dr. Annetta Mar , DO Other Provider Active Start : August 11, 2024 Team Status: Active Member Role Status Dates Dr. Margot Mai MD Primary Care Provider Active Start: August 12, 2024 Dr. Jose Juan Gotti , DO Emergency Provider Activ e Start: August 12, 2024 Dr. Yfn Dietz , DO Admit Provider Active Start: August 12, 2024 Dr. Yfn Dietz , DO Other Provider Active Start: August 12, 2024 Dr. Yfn Mccarthy MD Attending Provider Active Start: August 12, 2024 Dr. Yfn Mccarthy MD Other Provider Active Star t: August 12, 2024 Dr. Annetta Mar , DO Other Provider Active Start : August 12, 2024 Team Status: Active Member Role Status Dates Dr. Margot Mai MD Primary Care Provider Active Start: August 09, 2024 Dr. Jose Juan Gotti , DO Emergency Provider Activ e Start: August 09, 2024 Dr. Yfn Dietz , DO Admit Provider Active Start: August 09, 2024 Dr. Yfn Dietz , DO Other Provider Active Start: August 09, 2024 Dr. Annetta Mar , DO Referring Provider Active S tart: August 09, 2024 Dr. Annetta Mar , DO Other Provider Active Start : August 09, 2024 Dr. Bipin Brito , DO Attending Provider Active Start: August 09, 2024 Team Status: Active Member Role Status Dates Dr. Margot Mai MD Primary Care Provider Active Start: August 11, 2024 Dr. Jose Juan Gotti , DO Emergency Provider Activ e Start: August 11, 2024 Dr. Yfn Dietz , DO Admit Provider Active Start: August 11, 2024 Dr. Yfn Dietz , DO Other Provider Active Start: August 11, 2024 Dr. Yfn Mccarthy MD Referring Provider Active Start: August 11, 2024 Dr. Yfn Mccarthy MD Other Provider Active Star t: August 11, 2024 Dr. Annetta Mar DO Other Provider Active Start : August 11, 2024 Dr. Bipin Brito DO Attending Provider Active Start: August 11, 2024 Team Status: Inactive Member Role Status Dates Dr. Margot Mai MD Primary Care Provider Active Start: August 12, 2024 End: August 12, 2024 Dr. Margot Mai MD Referring Provider Active Start: August 12, 2024 End: August 12, 2024 Dr. Buster Harvey MD Attending Provider Active Start: August 12, 2024 End: August 12, 2024 Team Status: Inactive Member Role Status Dates Dr. Margot Mai MD Primary Care Provider Active Start: August 14, 2024 End: August 14, 2024 Dr. Margot Mai MD Referring Provider Active Start: August 14, 2024 End: August 14, 2024 SOLE Rosario Attending Provider Active Start: August 14, 2024 End: August 14, 2024 Team Status: Inactive Member Role Status Dates Dr. Margot Mai MD Primary Care Provider Active Start: 2024 End: 2024 Dr. Margot Mai MD Attending Provider Active Start: 2024 End: 2024 Dr. Margot Mai MD Referring Provider Active Start: 2024 End: 2024 SOLE Rosario Other Provider Active St art: 2024 End: 2024 Manager Custom Relationship Specialty Start Date End Date Margot Mai MD [address] [place] [address] PCP - General Family Medicine 12/31/21 Lazaro Marcus MD [address] [place] [address] Specialty Basin [facility]er Cardiology 12/31/21 Lamar Nogueira MD [address] [place] [address] Specialty Basin [facility]er Cardiology 09/15/23 Buster Harvey MD [address] [place] [address] Specialty Basin [facility]er Cardiology 10/13/24 Team Status: Inactive Member Role Status Dates Dr. Margot Mai MD Primary Care Provider Active Start: October 14, 2024 End: October 14, 2024 SOLE Rosario Attending Provider Active Start: October 14, 2024 End: October 14, 2024 SOLE Rosario Referring Provider Active Start: October 14, 2024 End: October 14, 2024 Manager Custom Relationship Specialty Start Date End Date Margot Mai MD [address] [place] [address] PCP - General Family Medicine 12/31/21 Lazaro Marcus MD [address] [place] [address] Specialty Basin Cleaner Cardiology 12/31/21 Lamar Nogueira MD [address] [place] [id number] Specialty Basin Cleaner Cardiology 09/15/23 Buster Harvey MD [address] [place], [place] [id number] Specialty Basin [facility] Cardiology 10/13/24 Manager Custom Relationship Specialty Start Date End Date Margot Mai MD [address] [place] [address] PCP - General Family Medicine 12/31/21 Lazaro Marcus MD [address] [place] [address] Specialty Basin Cleaner Cardiology 12/31/21 Lamar Nogueira MD [address] [place] [address] Specialty Basin Cleaner Cardiology 09/15/23 Buster Harvey MD [address] [place] [address] Specialty Basin Cleaner Cardiology 10/13/24 Manager Custom Relationship Specialty Start Date End Date Margot Mai MD [address] [facility] [place] [address] PCP - General Family Medicine 12/31/21 Lazaro Marcus MD [address] [place] [id number] Specialty Basin Cleaner Cardiology 12/31/21 Lamar Nogueira MD [address] [place] [id number] Specialty Basin Cleaner Cardiology 09/15/23 Buster Harevy MD [address] [place], [place] [phone] Specialty Basin [facility]er Cardiology 10/13/24 Team Status: Active Member Role/Relationship Status Dates Dr. Margot Mai MD Primary Care Provider Active Team Status: Inactive Member Role/Relationship Status Dates Dr. Margot Mai MD Primary Care Provider Active Start: July 28, 2024 End: July 28, 2024 Dr. Margot Mai MD Referring Provider Active Start: July 28, 2024 End: July 28, 2024 Dr. Yvonne Tamayo MD Attending Provider Active Start: July 28, 2024 End: July 28, 2024 Team Status: Inactive Member Role/Relationship Status Dates Dr. Margot Mai MD Primary Care Provider Active Start: August 06, 2024 End: August 12, 2024 Dr. Jose Juan Gotti , DO Emergency Provider Activ e Start: August 06, 2024 End: August 12, 2024 Dr. Yfn Dietz , DO Admit Provider Active Start: August 06, 2024 End: August 12, 2024 Dr. Yfn Dietz , DO Other Provider Active Start: August 06, 2024 End: August 12, 2024 Dr. Yfn Mccarthy MD Attending Provider Active Start: August 06, 2024 End: August 12, 2024 Dr. Annetta Mar , DO Other Provider Active Start : August 06, 2024 End: August 12, 2024 Team Status: Active Member Role/Relationship Status Dates Dr. Margot Mai MD Primary Care Provider Active Start: August 07, 2024 Dr. Jose Juan Gotti , DO Emergency Provider Activ e Start: August 07, 2024 Dr. Yfn Dietz , DO Admit Provider Active Start: August 07, 2024 Dr. Yfn Dietz , DO Other Provider Active Start: August 07, 2024 Dr. Annetta Mar , Attending Provider Active S tart: August 07, 2024 Dr. Annetta Mar , DO Other Provider Active Start : August 07, 2024 Team Status: Active Member Role/Relationship Status Dates Dr. Margot Mai MD Primary Care Provider Active Start: August 08, 2024 Dr. Jose Juan Gotti , DO Emergency Provider Activ e Start: August 08, 2024 Dr. Yfn Dietz , DO Admit Provider Active Start: August 08, 2024 Dr. Yfn Dietz , DO Other Provider Active Start: August 08, 2024 Dr. Annetta Mar , DO Attending Provider Active S tart: August 08, 2024 Dr. Annetta Mar , DO Other Provider Active Start : August 08, 2024 Team Status: Active Member Role/Relationship Status Dates Dr. Margot Mai MD Primary Care Provider Active Start: August 09, 2024 Dr. Jose Juan Gotti , DO Emergency Provider Activ e Start: August 09, 2024 Dr. Yfn Dietz , DO Admit Provider Active Start: August 09, 2024 Dr. Yfn Dietz , DO Other Provider Active Start: August 09, 2024 Dr. Annetta Mar , DO Attending Provider Active S tart: August 09, 2024 Dr. Annetta Mar , DO Other Provider Active Start : August 09, 2024 Team Status: Active Member Role/Relationship Status Dates Dr. Margot Mai MD Primary Care Provider Active Start: August 09, 2024 Dr. Jose Juan Gotti , DO Emergency Provider Activ e Start: August 09, 2024 Dr. Yfn Dietz , DO Admit Provider Active Start: August 09, 2024 Dr. Yfn Dietz , DO Other Provider Active Start: August 09, 2024 Dr. Annetta Mar , DO Referring Provider Active S tart: August 09, 2024 Dr. Annetta Mar , DO Other Provider Active Start : August 09, 2024 Dr. Bipin Brito , DO Attending Provider Active Start: August 09, 2024 Team Status: Active Member Role/Relationship Status Dates Dr. Margot Mai MD Primary Care Provider Active Start: August 10, 2024 Dr. Jose Juan Gotti , DO Emergency Provider Activ e Start: August 10, 2024 Dr. Yfn Dietz , DO Admit Provider Active Start: August 10, 2024 Dr. Yfn Dietz , DO Other Provider Active Start: August 10, 2024 Dr. Annetta Mar , DO Attending Provider Active S tart: August 10, 2024 Dr. Annetta Mar , DO Other Provider Active Start : August 10, 2024 Team Status: Active Member Role/Relationship Status Dates Dr. Margot Mai MD Primary Care Provider Active Start: August 11, 2024 Dr. Jose Juan Gotti DO Emergency Provider Activ e Start: August 11, 2024 Dr. Yfn Dietz , DO Admit Provider Active Start: August 11, 2024 Dr. Yfn Dietz , DO Other Provider Active Start: August 11, 2024 Dr. Yfn Mccarthy MD Referring Provider Active Start: August 11, 2024 Dr. Yfn Mccarthy MD Other Provider Active Star t: August 11, 2024 Dr. Annetta Mar , Other Provider Active Start : August 11, 2024 Dr. Bipin Brito , DO Attending Provider Active Start: August 11, 2024 Team Status: Active Member Role/Relationship Status Dates Dr. Margot Mai MD Primary Care Provider Active Start: August 11, 2024 Dr. Jose Juan Gotti DO Emergency Provider Activ e Start: August 11, 2024 Dr. Yfn Dietz DO Admit Provider Active Start: August 11, 2024 Dr. Yfn Dietz DO Other Provider Active Start: August 11, 2024 Dr. Yfn Mccarthy MD Attending Provider Active Start: August 11, 2024 Dr. Yfn Mccarthy MD Other Provider Active Star t: August 11, 2024 Dr. Annetta Mar , Other Provider Active Start : August 11, 2024 Team Status: Active Member Role/Relationship Status Dates Dr. Margot Mai MD Primary Care Provider Active Start: August 12, 2024 Dr. Jose Juan Gotti DO Emergency Provider Activ e Start: August 12, 2024 Dr. Yfn Dietz DO Admit Provider Active Start: August 12, 2024 Dr. Yfn Dietz DO Other Provider Active Start: August 12, 2024 Dr. Yfn Mccarthy MD Attending Provider Active Start: August 12, 2024 Dr. Yfn Mccarthy MD Other Provider Active Star t: August 12, 2024 Dr. Annetta Mar , Other Provider Active Start : August 12, 2024 Team Status: Inactive Member Role/Relationship Status Dates Dr. Margot Mai MD Primary Care Provider Active Start: August 12, 2024 End: August 12, 2024 Dr. Margot Mai MD Referring Provider Active Start: August 12, 2024 End: August 12, 2024 Dr. Buster Harvey MD Attending Provider Active Start: August 12, 2024 End: August 12, 2024 Team Status: Inactive Member Role/Relationship Status Dates Dr. Margot Mai MD Primary Care Provider Active Start: August 14, 2024 End: August 14, 2024 Dr. Margot Mai MD Referring Provider Active Start: August 14, 2024 End: August 14, 2024 SOLE Rosario Attending Provider Active Start: August 14, 2024 End: August 14, 2024 Team Status: Inactive Member Role/Relationship Status Dates Dr. Margot Mai MD Primary Care Provider Active Start: 2024 End: 2024 Dr. Margot Mai MD Attending Provider Active Start: 2024 End: 2024 Dr. Margot Mai MD Referring Provider Active Start: 2024 End: 2024 SOLE Rosario Other Provider Active St art: 2024 End: 2024 Team Status: Inactive Member Role/Relationship Status Dates Dr. Margot Mai MD Primary Care Provider Active Start: October 14, 2024 End: October 14, 2024 SOLE Rosario Attending Provider Active Start: October 14, 2024 End: October 14, 2024 SOLE Rosario Referring Provider Active Start: October 14, 2024 End: October 14, 2024 Team Status: Inactive Member Role/Relationship Status Dates Dr. Margot Mai MD Primary Care Provider Active Start: November 11, 2024 End: November 11, 2024 Dr. Margot Mai MD Referring Provider Active Start: November 11, 2024 End: November 11, 2024 SOLE Rosario Attending Provider Active Start: November 11, 2024 End: November 11, 2024 Manager Custom Relationship Specialty Start Date End Date Margot Mai MD [address] [facility] [address] PCP - General Family Medicine 12/31/21 Lazaro Marcus MD [address] [place] [address] Specialty Basin Cleaner Cardiology 12/31/21 Lamar Nogueira MD [address] [place] [phone] (Fax) Specialty Basin Cleaner Cardiology 09/15/23 Buster Harvey MD [address] [place] [address] (Fax) Specialty Basin Cleaner Cardiology 10/13/24 Manager Custom Relationship Specialty Start Date End Date Margot Mai MD [address] [place], [place] [id number] PCP - General Family Medicine 12/31/21 Lazaro Marcus MD [address] [place] [address] Specialty Basin Cleaner Cardiology 12/31/21 Lamar Nogueira MD [address] [place] [address] (Fax) Specialty Basin Cleaner Cardiology 09/15/23 Buster Harevy MD [address] [place] [address] Specialty Basin Cleaner Cardiology 10/13/24 Team Status: Inactive Member Role/Relationship Status Dates Dr. Margot Mai MD Primary Care Provider Active Start: November 20, 2024 End: November 20, 2024 Dr. Margot Mai MD Referring Provider Active Start: November 20, 2024 End: November 20, 2024 Carmen Hollingsworth HYDROELECTRIC MACHINERY MECHANIC HELPER, HYDROELECTRIC MACHINERY MECHANIC HELPER-C Attending Provider Active Start: November 20, 2024 End: November 20, 2024 FOR RECORDS PERTAINING TO PATIENTS WHO ARE [...] BE BASED ON THE PRIMARY CLINICAL RECORDS. [facility] [employer] [facility]. provides no warranty or guarantee of the accuracy or completeness of information in this document.
[2024-12-10] MEDS: Lactated Ringers 1,000 ML 15 ML IV (06:39)
--- NOTE | 2024-12-10 06:41 | HP.PCM_ITS ---
HPI - General General Date of Admission: 12/10/24 Date of Service: 12/10/24 Chief Complaint: Eosinophilic esophagitis HPI Narrative ALFIE BACON, is a 59 M who presents evaluation for erosive esophagitis and eosinophilic esophagitis OV 08/17/2024 58-year-old male presents for follow-up post admission. He presented to the emergency department for evaluation of nausea, vomiting and nonbloody diarrhea. CT completed on admission was concerning for areas of SB bleeding. Although, given stable VS, absence of anemia and no s/s of bleeding it was felt an active bleed was unlikely and findings were possibly secondary to infectious etiology. Labs did reveal a supratherapeutic INR of 5.3 and he was admitted. EGD and Colonoscopy were completed during admission. EGD revealed Grade B esophagitis, acute gastritis and erosive duodenitis. Colonoscopy revealed two polyps, congested mucosa in the entire colon and mild TI inflammation. Unfortunately, biopsy results are not available this time. He reports 3 days prior to presenting to ED he had sudden onset non-bloody diarrhea, N/V and thought he had food poisoning. He presented to ED with concerns for dehydration and dark (not black) stools. He was discharged on Budesonide 9mg QD, Metamucil 2 tsp. QD, Colestipol 2g QD, Cipro 500mg BID, and Metronidazole 500mg TID. He is continuing to have urgent diarrhea up to 6x a day. He is no longer experiencing explovie stools, nocturnal stools or fecal incontinence. He denies any loss of appetite, pain, bleeding, or fevers. He denies any family h/o IBD. IBD serologies negative. GIPCR, O&P, Lactoferrin, C. Diff negative. Occult stool positive 08/05/2024. Celiac serologies pending. He will repeat CBC in 1 week. I have started him on a daily PPI and will plan to repeat EGD in 8-12 weeks to assess healing of esophagitis. He will continue current medications while we await pathology before making further recommendations. INR was supratherapeutic at 5.3 and Coumadin was held. Discharged on 08/12/2024 with a INR of 1.8 with instructions to resume Coumadin on 08/15/2024. He reports Coumadin has since been discontinued with plan to initiate Eliquis of 08/25/2024. Patient Instructions: -Colestipol 2grams once a day - take all other medications at least 1 hour before or 4 hours after you take colestipol -Start pantoprazole 40mg once a day, take every morning 30 minutes before breakfast -EGD 8-12 weeks to assess healing of Grade B esophagitis -Await pathology and lab results -Complete antibiotics -Continue Budesonide at this time -Metamucil 2 heaping teaspoons once daily in 8 ounces of water after a meal. Do not take Metamucil should be taken at least 1 hours after other medications. May take up to 3 weeks for symptom improvement. -CBC in 1 week Workload message On 08/18/24 @ 12:28 Nella Hopkins Wrote To Brianna Gupta I saw patient in OV on 08/13/2024 and pathology was pending. EGD revealed active chronic gastritis and duodenal biopsies with mild acute inflammation, increased eosinophils, Julius gland hyperplasia, preserved villous architecture, and no increased intraepithelial lymphocytes. H. pylori negative on gastric biopsy. Serum eosinophils elevated at 13%. 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 Colonoscopy revealed tubular adenomas, random biopsies and TI biopsy were all unremarkable. The Budesonide he was discharged on will help reduce the inflammation. I recommend 8 weeks of Budesonide at 9mg daily and then plan to taper dose if clinically improved. I have reached out to the lab for the O&P stool results, microbiology advised they will speak with plastic tubing insulation supervisor about reaching out to [facility] since it has been 12 days (08/06/2024). - he reports he called in for a refill and heard nothing, states 2 weeks later he called again and then it was another week and never received a call back - he states Budesonide was approved - Budesonide was stopped for approx. 6 weeks and states during this 6 weeks he did not have diarrhea but was taking Colestipol - the past 2 weeks he has been off Colestipol because he ran out - no longer having constant diarrhea - not taking any imodium - he is taking metamucil daily [facility] Medical History Wears glasses MRSA infection Insulin dependent diabetes mellitus Restless legs Former smoker CPAP (continuous positive airway pressure) dependence Sleep apnea History of echocardiogram Cardiology follow-up encounter History of atrial fibrillation Hx of colonic polyps Non-ischemic cardiomyopathy HFrEF (heart failure with reduced ejection fraction) Persistent atrial fibrillation [facility] current use of anticoagulant Essential 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 Atrial fibrillation with rapid ventricular response MARIELLA (obstructive sleep apnea) Diabetes COPD (chronic obstructive pulmonary disease) Home Medications ?Medication ?Instructions ?Recorded ?Last Taken ?Type bupropion HCl 150 mg tablet,12 hr 150 mg PO BID antide pressant 08/14/21 05/23/22 History sustained-release metformin 1,000 mg tablet 1,000 mg PO BID dm 08/14/21 05/23/22 History lisinopril 2.5 mg tablet 2.5 mg PO DAILY blood pressu re 05/22/22 12/09/24 History insulin glargine 100 unit/mL (3 30 unit subcut BID dalia betes 05/17/23 12/09/24 History mL) subcutaneous pen (Lantus Solostar U-100 Insulin) potassium chloride 10 mEq 10 meq PO DAILY supplement # 90 tabs 07/18/24 Unknown Rx tablet,extended release metoprolol tartrate 75 mg tablet 75 mg PO Q12H blood p ressure 08/05/24 12/09/24 21:00 History loperamide 2 mg capsule 2 mg PO TID PRN loose stool #30 08/12/24 Unknown Rx caps furosemide 40 mg tablet 80 mg (2 x 40 mg) PO DAILY 0 09/15/24 Unknown Rx diuretic #180 tabs apixaban 5 mg tablet 5 mg PO BID #180 tabs 12/06/24 Rx budesonide 9 mg capsule,extended 9 mg PO DAILY #30 cap s 10/13/24 Unknown Rx release colestipol 1 gram tablet 2 g (2 x 1 gram) PO BID 90 d ays 11/11/24 Unknown Rx #360 tabs diltiazem HCl 120 mg 120 mg PO DAILY heart rate # 90 caps 11/25/24 12/09/24 Rx capsule,extended release 24 hr psyllium husk 3 gram oral powder 1 packet PO DAILY Unknown History packet (Daily Fiber (psyllium-aspartame)) Allergy/AdvReac Type Severity Reaction Status Date / Time Penicillins Allergy PT UNSURE Verified 12/10/24 06:28 OF REACTION Family History Other COPD (chronic obstructive pulmonary disease) Colon cancer Heart disease Lung cancer Testicular cancer Surgical History History of cardiac catheterization Status post cryoablation of arrhythmia (03/01/22) History of cardioversion (10/27/21) Bunion H/O hernia repair Social History Smoking Status: Former smoker alcohol intake: never substance use type: does not use caffeine: Yes Type: coffee Number of servings: 1 ROS Constitutional Constitutional: Denies fatigue, fever(s), poor appetite, weight gain or weight loss Gastrointestinal Gastrointestinal: Denies belching, bloating, change in bowel habits, change in stool character, chewing difficulty, coffee ground emesis, constipation, cramping, diarrhea, dyspepsia, dysphagia, early satiety, excessive flatus, fecal incontinence, heartburn, hematemesis, hematochezia, hemorrhoids, loose stools, melena, nausea, odynophagia, rectal bleeding, tenesmus, vomiting or weight changes Vital Signs Vital Signs Vital Signs: 12/10/24 06:31 12/10/24 06:31 Temperature 97 F L Temperature Source Temporal Pulse Rate 68 Respiratory Rate 16 Respiratory Pattern Normal Blood Pressure 120/66 Blood Pressure Mean 84 Blood Pressure Source Monitor Blood Pressure Position Semi-Fowlers Blood Pressure Location Right Arm Pulse Ox 99 Oxygen Delivery Method Room Air Weight Weight: 305 lb Body Mass Index (BMI) 39.1 Physical Exam Narrative GENERAL: cooperative HEENT: Atraumatic; normocephalic EYES; Anicteric, Normal Conjunctiva NECK; supple, normal thyroid, RESPIRATORY: Diminished to auscultation CARDIOVASCULAR: Regular S1 S2, GI: soft, normoactive bowel sounds, : No Renal angle tenderness; EXTREMITIES: No edema, no clubbing, MUSCULOSKELETAL: no muscle wasting NEURO: Awake; no lateralizing signs. SKIN: No Rash PSYCH; Flat affect Assessment & Plan Assessment/Plan (1) Eosinophilia: (2) Eosinophilic gastroenteritis: (3) Anemia: PLAN: Assessment and Plan Assessment and Plan (1) Eosinophilic gastroenteritis: Status: Acute Plan: The patient will continue budesonide at 9 mg daily for two weeks, followed by a taper to 6 mg daily for two weeks, then 3 mg daily for two weeks before discontinuation. Cholesterol medication will be resumed, as it previously helped control symptoms, with a 90-day supply and a year's worth of refills provided. The patient is advised to continue Metamucil and maintain adequate hydration. An upper endoscopy is scheduled for December 10 to reassess previously noted esophagitis. Medications: Changed From colestipol 2 grams (2 x 1 gram) PO 0600,1999 30 days 120 tabs 0RF To colestipol 2 grams (2 x 1 gram) PO BID 90 days 360 tabs 3RF Plan The patient is a 59-year-old male presenting with eosinophilic gastroenteritis. The condition was identified following an EGD that revealed active chronic infla mmation in the stomach and acute inflammation in the small intestine, with increased eosinophils noted. The patient had a negative biopsy for H. pylori and no bacterial presence was detected. The patient was initially prescribed budesonide at 9 mg daily for eight weeks to manage inflammation, with a plan to taper based on symptom improvement. However, due to a delay in prescription refill, the patient was off budesonide for approximately six weeks, during which time he continued taking Colestipol until it ran out. Upon resuming budesonide, two weeks ago he ran out of Colestipol and diarrhea resumed in the past 48 hours, albeit less severe than before hospitalization. The patient has not been using loperamide but has been taking Metamucil to manage symptoms. He maintains good hydration with a high water intake. Patient Instructions: - Continue taking budesonide as prescribed, tapering the dose as instructed. - Resume Colestipol medication with the provided prescription. - Maintain hydration and continue using Metamucil. - Prepare for the upper endoscopy scheduled on December 10 by not eating or drinking after midnight the night before.
--- NOTE | 2024-12-10 07:00 | EGD_PTH ---
PATIENT: ALFIE BACON LOC: EN U#:[id number] AGE/SX: 59/M ROOM: RE12/10/[address]: Dr. Bipin Brito DO : 1965 BED: DIS: 12/10/2024 SPEC #: [id number] RECD: 12/10/24 09:31 STATUS: EVETTE RECrissy #: [id number] ARNOLDO: 12/10/24 07:[address]: Bipin Brito DEPT: SURGICAL PATHOLOGY RECD BY: Noble Shearer ENTERED: 12/10/24 11:24 SP TYPE: EGD BIOPSY REED DR: Dr. Margot Mai MD Tissues: A - Esophagus, NOS Procedures: Surgery Specimen Level IV HEADER OPERATION: EGD with biopsy PRE-OP DIAGNOSIS: Eosinophilia, eosinophilic gastroenteritis, anemia TISSUE SUBMITTED: A- Distal esophagus biopsy MICROSCOPIC DIAGNOSIS A. Distal esophagus, biopsy: - Squamocolumnar mucosa with reactive changes. - Negative for goblet cell metaplasia. - Negative for dysplasia. MICROSCOPIC DESCRIPTION Slides are reviewed. GROSS DESCRIPTION A. Received in fixative is one container labeled with the patient's name and designated Distal esophagus biopsy. The specimen consists of two irregular fragments of light keller soft tissue, each measuring 0.4 cm. The specimen is totally submitted in one cassette. OR 12/10/2024 CPT:47041
--- NOTE | 2024-12-10 07:10 | PRE.ANES_ITS ---
ASA Classification* ASA Classification ASA Classification: 3 Assessment & Plan Anesthesia* Anesthesia Assessment Anesthesia Assessment: Discussed sedation and/or anesthesia options, risks, benefits, and alternatives with patient/parents/legal guardian/POA. Questions invited. The patient/parents/legal guardian/POA seems to understand and agrees to proceed with anesthesia plan. Reviewed the physical assessment, medical history, allergy history and patient home medications list prior to surgery/procedure/anesthetic and documented any changes. Performed airway and anesthesia risk assessments. Anesthesia Type Anesthesia Type: MAC History Source History Obtained from:: Patient Anesthesia Focused Assessment* Temperature: 97 F Pulse Rate: 68 Blood Pressure: 120/66 Respiratory Rate: 16 Pulse Ox: 99 Oxygen Delivery Method: Room Air Airway Assessment Mouth opens: >3 cm Mallampati Score: II Teeth Condition: Intact Neck Range of motion (ROM): Full ROM Labs Anesthesia Preop lab: CBC WBC 9.2 K/mm3 (4.4-11.0) 10/14/24 16:04 10/14/24 RBC 4.55 M/mm3 (4.6-6.2) L 10/14/24 16:04 10/14/24 Hgb 13.0 g/dL (13.0-16.5) 10/14/24 16:04 10/14/24 Hct 39.6 % (40-54) L 10/14/24 16:04 10/14/24 Plt Count 228 K/mm3 (150-450) 10/14/24 16:04 10/14/24 CHEMISTRY Potassium 3.6 mmol/L (3.3-5.1) 08/25/24 15:54 08/25/24 Sodium 138 mmol/L (133-145) 08/25/24 15:54 08/25/24 Magnesium 1.6 mg/dL (1.5-2.2) 08/12/24 05:24 08/12/24 Phosphorus 3.0 mg/dL (2.7-4.5) 08/12/24 05:24 08/12/24 BUN 21 mg/dL (4-19) H 08/25/24 15:54 08/25/24 Creatinine 0.79 mg/dL (0.70-1.20) 08/25/24 15:54 08/25/24 Glucose 163 mg/dL (70-99) H 08/25/24 15:54 08/25/24 POC Glucose 155 mg/dL (74-106) H 08/12/24 11:54 08/12/24 TSH 4.200 uIU/mL (0.300-4.200) 08/05/24 21:20 03/2 10/05 COAG PT 21.1 SECONDS (11.7-14.9) H 08/12/24 05:28 04/0 06/07 Pre-Assessment Diagnosis/Proposed Procedure Planned Operative Procedure(s): EGD Anesthesia History Anesthesia History - plasterer maintenance: Anesthesia History - plasterer maintenance Hx Hospitalization Yes: WC 12/05/24 13:23 Any Problems With Anesthesia No 12/05/24 13:23 Cholinesterase deficiency No 12/05/24 13:23 You/Your Family Experience No 12/05/24 13:23 fever (hyperthermia) with Relationship Recent Exposure to Contagious No 12/10/24 06:31 Disease Does patient have nerve No 12/05/24 13:23 stimulator Patient instructed to have device shut off --Does patient have Pacemaker No 12/10/24 06:31 or ICD? When Was Last Pacemaker Check QUESTION #4 FULL TEXT: You/Your Family Experience fever (hyperthermia) with Anesthesia Last Oral Intake Last Oral intake: Last Oral Intake NPO since 22:00 12/10/24 06:31 Meds taken in AM with sips of water? Meds patient instructed to take am of surgery PONV PONV - plasterer maintenance: PONV - plasterer maintenance Female No 12/05/24 13:23 HX of Motion Sickness No 12/05/24 13:23 HX of N/V After Surgery No 12/05/24 13:23 Non-Smoker Yes 12/05/24 13:23 Duration of Surgery greater No 12/05/24 13:23 than 60 minutes Number of Risk Factors 1 12/05/24 13:23 PONV Score Low Risk 12/05/24 13:23 Height & Weight Height & Weight: Anesthesia: Height & Weight Height 6 ft 2 in 12/10/24 06:31 Weight: 138.346 kg 12/10/24 06:31 Body Mass Index (BMI) 39.1 12/10/24 06:31 Respiratory Assessment Respiratory Assessment - plasterer maintenance: Respiratory Tract Infection Hx - plasterer maintenance Hx Respiratory Tract Infection No 12/05/24 13:23 STOP Sleep Apnea STOP Sleep Apnea - plasterer maintenance: STOP Sleep Apnea - plasterer maintenance Hx Hypertension Yes: CONTROLLED WITH MEDS 12/05/24 13:23 Hx Sleep Apnea Yes 12/05/24 13:23 CPAP Yes 12/05/24 13:23 BIPAP No 12/05/24 13:23 Do you snore loudly (louder than talking or can be heard Do you often feel tired/ fatigued/ sleepy during daytime? Has anyone observed you stop breathing during sleep? STOP Results Positive 12/05/24 13:23 QUESTION #5 FULL TEXT : Do you snore loudly (louder than talking or can be heard through closed doors)? 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 Specify any problems Hx of Preganancy in last 3 N/A 12/05/24 13:23 Months Nurse Filling Out Transfusion [id number] 12/05/24 13:23 & Questions: Date: 12/05/24 12/05/24 13:23 Time: 13:26 12/05/24 13:23 Patient unable to answer at this time (ie. confused, unrespo /Reproduction History /Reproductive History - plasterer maintenance: /Reproductive Hx- plasterer maintenance Hx Now Gestational Age (in weeks): EDC: Hx Hx Para Hx Section SAB Active Medications Active Medications: Current Medications Generic Name Dose Route Start Last Admin Trade Name Freq PRN Reason Stop Dose Admin Lactated Ringer's 1,000 mls @ 15 mls/hr 12/10/24 06:15 12/10/24 06:39 IV 15 mls/hr .Q48H AMRIT Administration PFSH Medical History Wears glasses MRSA infection Insulin dependent diabetes mellitus Restless legs Former smoker CPAP (continuous positive airway pressure) dependence Sleep apnea History of echocardiogram Cardiology follow-up encounter History of atrial fibrillation Hx of colonic polyps Non-ischemic cardiomyopathy HFrEF (heart failure with reduced ejection fraction) Persistent atrial fibrillation shelter current use of anticoagulant Essential 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 Atrial fibrillation with rapid ventricular response MARIELLA (obstructive sleep apnea) Diabetes COPD (chronic obstructive pulmonary disease) Home Medications ?Medication ?Instructions ?Recorded ?Last Taken ?Type bupropion HCl 150 mg tablet,12 hr 150 mg PO BID antide pressant 08/14/21 05/23/22 History sustained-release metformin 1,000 mg tablet 1,000 mg PO BID dm 08/14/21 05/23/22 History lisinopril 2.5 mg tablet 2.5 mg PO DAILY blood pressu re 05/22/22 12/09/24 History insulin glargine 100 unit/mL (3 30 unit subcut BID dalia betes 05/17/23 12/09/24 History mL) subcutaneous pen (Lantus Solostar U-100 Insulin) potassium chloride 10 mEq 10 meq PO DAILY supplement # 90 tabs 07/18/24 Unknown Rx tablet,extended release metoprolol tartrate 75 mg tablet 75 mg PO Q12H blood p ressure 08/05/24 12/09/24 21:00 History loperamide 2 mg capsule 2 mg PO TID PRN loose stool #30 08/12/24 Unknown Rx caps furosemide 40 mg tablet 80 mg (2 x 40 mg) PO DAILY 0 09/15/24 Unknown Rx diuretic #180 tabs apixaban 5 mg tablet 5 mg PO BID #180 tabs 12/06/24 Rx budesonide 9 mg capsule,extended 9 mg PO DAILY #30 cap s 10/13/24 Unknown Rx release colestipol 1 gram tablet 2 g (2 x 1 gram) PO BID 90 d ays 11/11/24 Unknown Rx #360 tabs diltiazem HCl 120 mg 120 mg PO DAILY heart rate # 90 caps 11/25/24 12/09/24 Rx capsule,extended release 24 hr psyllium husk 3 gram oral powder 1 packet PO DAILY Unknown History packet (Daily Fiber (psyllium-aspartame)) Allergy/AdvReac Type Severity Reaction Status Date / Time Penicillins Allergy PT UNSURE Verified 12/10/24 06:28 OF REACTION Family History Other COPD (chronic obstructive pulmonary disease) Colon cancer Heart disease Lung cancer Testicular cancer Surgical History History of cardiac catheterization Status post cryoablation of arrhythmia (03/01/22) History of cardioversion (10/27/21) Bunion H/O hernia repair Social History Smoking Status: Former smoker alcohol intake: never substance use type: does not use caffeine: Yes Type: coffee Number of servings: 1 Review of Systems (Anesthesia) ROS Narrative System reviewed and no additional complaints, except as documented.
--- NOTE | 2024-12-10 07:34 | OP.EGD_ITS ---
Patient Name: Pedro Karimi Procedure Date: 12/10/2024 7:17 AM Date of : 1965 Age: 59 Procedure: Upper GI endoscopy Indications: Functional Dyspepsia, Heartburn, Follow-up of reflux esophagitis Providers: Bipin Brito DO Referring MD: Margot Mai Medicines: Monitored Anesthesia Care Patient Profile: This is a 59 year old male. Refer to note in patient chart for documentation of history and physical. Patient has symptoms of chronic dyspepsia, acute heartburn, chronic heartburn, chronic nausea, acute regurgitation and acute throat burning. Complications: No immediate complications. Procedure: Pre-Anesthesia Assessment: - Prior to the procedure, a History and Physical was performed, and patient medications and allergies were reviewed. The patient is competent. The risks and benefits of the procedure and the sedation options and risks were discussed with the patient. All questions were answered and informed consent was obtained. Patient identification and proposed procedure were verified by the physician in the pre-procedure area. Mental Status Examination: alert and oriented. Airway Examination: normal oropharyngeal airway and neck mobility. Respiratory Examination: clear to auscultation. CV Examination: normal. Prophylactic Antibiotics: The patient does not require prophylactic antibiotics. Prior Anticoagulants: The patient has taken no anticoagulant or antiplatelet agents except for NSAID medication. ASA Grade Assessment: II - A patient with mild systemic disease. After reviewing the risks and benefits, the patient was deemed in satisfactory condition to undergo the procedure. The anesthesia plan was to use monitored anesthesia care (MAC). Immediately prior to administration of medications, the patient was re-assessed for adequacy to receive sedatives. The heart rate, respiratory rate, oxygen saturations, blood pressure, adequacy of pulmonary ventilation, and response to care were monitored throughout the procedure. The physical status of the patient was re-assessed after the procedure. After obtaining informed consent, the endoscope was passed under direct vision. Throughout the procedure, the patient's blood pressure, pulse, and oxygen saturations were monitored continuously. The Endoscope was introduced through the mouth, and advanced to the second part of duodenum. The upper GI endoscopy was accomplished without difficulty. The patient tolerated the procedure well. Scope In: 7:26:47 AM Scope Out: 7:29:20 AM Total Procedure Duration Time 0 hours 2 minutes 33 seconds Findings: LA Grade B (one or more mucosal breaks greater than 5 mm, not extending between the tops of two mucosal folds) esophagitis with no bleeding was found 36 to 40 cm from the incisors. Biopsies were taken with a cold forceps for histology. Verification of patient identification for the specimen was done. Estimated blood loss was minimal. Suspect gastroparesis due to absence of peristalsis, patient symptoms and retained gastric contents. Food (residue) was found in the duodenal bulb. Impression: - LA Grade B reflux esophagitis with no bleeding. Biopsied. - Gastroparesis, secondary to diabetes mellitus type II. - Retained food in the duodenum. Recommendation: - Discharge patient to home. - Resume previous diet. - Continue present medications. - Await pathology results. Procedure Code(s): --- Professional --- 80439, Esophagogastroduodenoscopy, flexible, transoral; with biopsy, single or multiple CPT copyright 2021 [employer]. All rights reserved. The codes documented in this report are preliminary and upon club former review may be revised to meet current compliance requirements. Bipin Brito DO 12/10/2024 7:34:25 AM This report has been signed electronically. Number of Addenda: 0 Note Initiated On: 12/10/2024 7:17 AM
--- NOTE | 2024-12-10 07:35 | OP.PROVAT_ITS ---
12/10/2024 Margot Mai [place] [id number] [place] [address] Re : Upper GI endoscopy procedure for Pedro Sachi Dear Dr. Mai This procedure was performed on Sunday, December 10, 2024. My impressions and recommendations are as follows: Impressions : - LA Grade B reflux esophagitis with no bleeding. Biopsied. - Gastroparesis, secondary to diabetes mellitus type II. - Retained food in the duodenum. Recommendations : - Discharge patient to home. - Resume previous diet. - Continue present medications. - Await pathology results. My findings are described in the full procedure note, which is enclosed. If I can be of further assistance, please feel free to contact me at . Sincerely, Bipin Brito, 12/10/2024 7:34:25 AM This report has been signed electronically.
--- NOTE | 2024-12-10 07:40 | PCM.POST.ANE ---
Anesthesia: Postop Eval I Current Vital Signs Temperature: 97.4 F Pulse Rate: 70 Blood Pressure: 100/65 Respiratory Rate: 16 Pulse Ox: 95 Oxygen Delivery Method: Room Air Assessment Airway patent: Yes Spontaneous unlabored respirations: Yes Mental status: Asleep nausea: No Vomiting: No Anesthesia Complication: No Fluid Hydration Crystalloid volume administer (ml): 300 Total IV fluid infused: 300 Progress Note Anesthesia document: Postop Eval 1 completed: Yes
--- NOTE | 2024-12-10 08:06 | PCM.POSTANE2 ---
Anesthesia Postop Eval I Sum Postop Eval Completion status Anesthesia document: Postop Eval 1 completed: Yes Anesthesia Postop Eval I Summary Anesthesia Postop Eval I Summary: Anesthesia Postop Eval I: Assessment Summary Airway patent Yes 12/10/24 07:41 [email or web address] Spontaneous unlabored Yes 12/10/24 07:41 [email or web address] respirations Mental status Asleep 12/10/24 07:41 [email or web address] nausea No 12/10/24 07:41 [email or web address] Vomiting No 12/10/24 07:41 [email or web address] Anesthesia Postop Eval I: Fluid Summary Crystalloid volume administer 300 12/10/24 07:41 [email or web address] (ml) Colloids volume administered ( ml) Blood Product volume administered (ml) Total IV fluid infused 300 12/10/24 07:41 [email or web address] Anesthesia Postop Eval I: Summary Notes Anesthesia Complication No 12/10/24 07:41 [email or web address] Anesthesia Complication Comment: Post-operative progress note Anesthesia: Postop Eval II Evaluation Mental status: Awake and Calm Pain Level: 0 nausea: No Vomiting: No Progress Note Post-operative progress note: meets discharge criteria Complications Anesthesia Complication: No
== END 2024-12-10 08:19 | disposition home or self-care (01) ==
LOC: EN 06:00 → AC 06:01
PROVIDERS: PCP Family Medicine; Referring Provider Family Medicine; Visit Provider Internal Medicine Gastroenterology
PROC: 0DJ08ZZ Inspection of Upper Intestinal Tract, Via Natural or Artificial Opening Endoscopic (ICD-10-PCS; CPT 43235; principal; 2024-12-10 06:55)
DX: K52.81 Eosinophilic gastritis or gastroenteritis (principal); I11.0 Hypertensive heart disease with heart failure; I50.22 Chronic systolic (congestive) heart failure; I48.19 Other persistent atrial fibrillation; Z79.4 Long term (current) use of insulin; E11.43 Type 2 diabetes mellitus with diabetic autonomic (poly)neuropathy; K21.00 Gastro-esophageal reflux disease with esophagitis, without bleeding; K31.84 Gastroparesis; D72.10 Eosinophilia, unspecified; D64.9 Anemia, unspecified; Z79.01 Long term (current) use of anticoagulants; Z79.84 Long term (current) use of oral hypoglycemic drugs; Z79.899 Other long term (current) drug therapy; Z87.891 Personal history of nicotine dependence
CPT/HCPCS: 43239; 82962; 88305; J2405